=== PATIENT | female | born 1970 | race Caucasian/White ===

== ENCOUNTER 2022-10-19 13:42 | Inpatient (IN) | payer BC, SELFPAY ==
[2022-10-19] VITALS (8 sets, daily range): BP systolic 113–147; BP diastolic 48–86; PULSE 86–99; RESP 14–17; TEMP 36.4–37.6; O2SAT 92–99; BMI 25.0
--- NOTE | ~2022-10-19 | CT_ITS ---
EXAMINATION: CT CHEST WITHOUT CONTRAST CLINICAL INFORMATION: Epigastric pain COMPARISON: None TECHNIQUE: Multidetector volumetric CT imaging of the chest was done. Axial MIP volume rendering provided. Sagittal and coronal reformatted images were obtained. This CT examination was performed using dose optimization techniques as appropriate, variously including the following: *Automated exposure control *Adjustment of mA and/or kV according to patient size (this includes techniques or standardized protocols for targeted exams where dose is matched to indication/reason for exam; i.e. extremities or head) *Use of iterative reconstruction technique DLP: 275 mGy-cm FINDINGS: LUNGS: 3 mm peripheral or subpleural right upper lobe nodule axial image 99 series 9. 3 mm peripheral or subpleural right middle lobe nodule axial image 253 series 9. 7 mm calcified left lower lobe nodule axial image 262 series 9. MEDIASTINUM: Replaced right subclavian artery. The mediastinum is otherwise normal. The esophagus is normal. CORONARY ARTERY CALCIFICATION: None visualized on this study. PLEURA: There is no pleural effusion. No pleural mass or thickening. AXILLA: No lymphadenopathy. UPPER ABDOMEN: Unremarkable. OSSEOUS STRUCTURES: Spinal stimulator with tip at the T8-T9 level. CT/CT chest wo IV con IMPRESSION: No acute findings. Calcified and noncalcified pulmonary nodules. According to the UPDATED 2017 Fleischner Society recommendations, the advised follow-up imaging for less than 6 mm solid noncalcified pulmonary nodule: Low risk, no chest CT follow-up and high risk, optional chest CT follow-up in one year. Fleischner guidelines were followed.
--- NOTE | ~2022-10-19 | CT_ITS ---
EXAMINATION: CT ABDOMEN AND PELVIS WITHOUT CONTRAST CLINICAL INFORMATION: Abdominal pain COMPARISON: None TECHNIQUE: Multidetector volumetric imaging was performed from the superior aspect of the liver through the pubic symphysis. Sagittal and coronal reformatted images were obtained on the technologist's workstation. This CT examination was performed using dose optimization techniques as appropriate, variously including the following: *Automated exposure control *Adjustment of mA and/or kV according to patient size (this includes techniques or standardized protocols for targeted exams where dose is matched to indication/reason for exam; i.e. extremities or head) *Use of iterative reconstruction technique DLP: 660 mGy-cm FINDINGS: LUNG BASES: Small calcified left lower lobe nodule. Lung bases are otherwise clear. LIVER, GALLBLADDER, AND BILIARY TREE: The liver is normal in size and attenuation. The liver is slightly enlarged. No focal hepatic lesion or biliary ductal dilatation is present. The gallbladder is been removed. PANCREAS: Unremarkable. SPLEEN: Unremarkable. ADRENAL GLANDS: Unremarkable. KIDNEYS AND URETERS: Multiple small right renal stones. 1 small stone in the upper pole of the left kidney. 1 cm low-attenuation lesion in the upper pole of the right kidney probably representing a cyst. No imaging follow-up. BLADDER: Unremarkable. GASTROINTESTINAL TRACT: The small and large bowel are unremarkable. The appendix is is not seen and has probably been removed. The stomach is slightly distended and fluid-filled. ABDOMINAL WALL: No significant hernia is appreciated. LYMPH NODES: Normal. VASCULAR: Unremarkable. PELVIC VISCERA: Enlarged uterus, slightly lobulated in contour. This may represent fibroids. OSSEOUS STRUCTURES: Postsurgical changes to the lower lumbar spine with posterior fusion hardware in prosthetic disc interspaces at L4-L5 and L5-S1. Degenerative changes at L3-L4. Spinal stimulator the lower thoracic spinal canal.. CT/CT abdomen pelvis wo IV con IMPRESSION: Bilateral small renal stones, right greater than left. Enlarged probable fibroid uterus. This could be better evaluated with pelvic ultrasound if clinically indicated. Fleischner guidelines were followed.
--- NOTE | 2022-10-19 13:57 | ED_ITS ---
HPI - Weakness General Chief complaint: Abdominal Pain <GEO Gudino - Last Filed: 10/19/22 18:21> Stated complaint: N/V/D <GEO Gudino - Last Filed: 10/19/22 18:21> Time Seen by Provider: 10/19/22 20:50 <GEO Gduino - Last Filed: 10/19/22 18:21> Source: patient <Mayra Sethi NP - Last Filed: 10/20/22 01:33> Mode of arrival: ambulatory <Mayra Sethi NP - Last Filed: 10/20/22 01:33> Limitations: language barrier <Mayra Sethi NP - Last Filed: 10/20/22 01:33> History of Present Illness HPI Narrative: 52-year-old female presents with headache, abdominal pain, shortness of breath, nausea vomiting and diarrhea since yesterday. She does have a history of left amputation, type 2 diabetes, hypertension, and neuropathy. She does not report any fevers or chills, but is unable to drink and eat. <Mayra Sethi NP - Last Filed: 10/20/22 01:33> MD Complaint: generalized weakness <Mayra Sethi NP - Last Filed: 10/20/22 01:33> Onset (ago): day(s) (2) <Mayra Sethi NP - Last Filed: 10/20/22 01:33> Duration: constant <Mayra Sethi NP - Last Filed: 10/20/22 01:33> Location: generalized <Mayra Sethi NP - Last Filed: 10/20/22 01:33> Migration: none <Mayra Sethi NP - Last Filed: 10/20/22 01:33> Severity: moderate <Mayra Sethi NP - Last Filed: 10/20/22 01:33> Severity scale (1-10): 7 <Mayra Sethi NP - Last Filed: 10/20/22 01:33> Quality: aching <Mayra Sethi NP - Last Filed: 10/20/22 01:33> Relieving factors: none <Mayra Sethi NP - Last Filed: 10/20/22 01:33> Exacerbating factors: movement <Mayra Sethi NP - Last Filed: 10/20/22 01:33> Associated symptoms: headaches, nausea/vomiting, myalgias and shortness of breath <Mayra Sethi NP - Last Filed: 10/20/22 01:33> Related Data Allergies/Adverse reactions: Allergies Allergy/AdvReac Type Severity Reaction Status Date / Time Iodinated Contrast Media Allergy Unknown HIVES Verified 10/19/22 15:06 [IV DYE, IODINE CONTAINING] <GEO Gudino - Last Filed: 10/19/22 18:21> Review of Systems Review of Systems: Constitutional: No Fever, No Chills ENT/Mouth: No Ear Pain, No Hoarseness, No sore throat Cardiovascular: No Chest Pain, positive SOB Respiratory: No Cough, No Dyspnea Gastrointestinal: Positive Nausea, positive Vomiting, positive Diarrhea, positive abdominal Pain Genitourinary: No Dysuria, No Hematuria Musculoskeletal: positive Myalgias, No Joint Swelling Skin: No Skin lacerations, No rash Neuro: No Weakness, No Numbness, No Paresthesias, No Loss of Consciousness, No Dizziness, No Headache <Mayra Sethi NP - Last Filed: 10/20/22 01:33> Yes all other systems are reviewed and are negative <Mayra Sethi NP - Last Filed: 10/20/22 01:33> PMFSH Past Medical History Attestation statement: The following information was validated with the patient. <Mayra Sethi NP - Last Filed: 10/20/22 01:33> Source: old records reviewed <Mayra Sethi NP - Last Filed: 10/20/22 01:33> Medical History: Medical History (Updated 10/20/22 @ 00:37 by Diane Peters MD) Hypertension Non-insulin dependent type 2 diabetes mellitus Peripheral neuropathy <GEO Gudino - Last Filed: 10/19/22 18:21> Surgical History: Surgical History (Updated 10/20/22 @ 00:37 by Diane Peters MD) Amputated left leg <GEO Gudino - Last Filed: 10/19/22 18:21> Social History Social History: Social History Advance Directives: No Advance Directives Information Provided: No <GEO Gudino - Last Filed: 10/19/22 18:21> Physical Exam Vital Signs: Vital Signs: Last Vital Signs Temp 99.8 F 10/20/22 00:53 Pulse 84 10/20/22 00:53 Resp 16 10/20/22 00:53 BP 118/64 10/20/22 00:53 Pulse Ox 95 10/20/22 00:53 O2 Del Method 10/20/22 00:53 BMI result Body Mass Index 25.0 <GEO Gudino - Last Filed: 10/19/22 18:21> Vital Signs: Last Vital Signs Temp 99.8 F 10/20/22 00:53 Pulse 84 10/20/22 00:53 Resp 16 10/20/22 00:53 BP 118/64 10/20/22 00:53 Pulse Ox 95 10/20/22 00:53 O2 Del Method 10/20/22 00:53 BMI result Body Mass Index 25.0 <Mayra Sethi NP - Last Filed: 10/20/22 01:33> Appearance: Alert. Oriented X3. Moderate distress. Eyes: Pupils equal, round and reactive to light. Sclera nonicteric. ENT: Pharynx normal. Dry mucous membranes. Neck: Normal inspection. Neck supple. CVS: Normal heart rate and rhythm. Pulses normal. Respiratory: No respiratory distress. Breath sounds normal. Abdomen: Soft and diffusely tender. Obese. No rigidity or rebound. Skin: Skin warm and dry. Normal skin color. Normal skin turgor. Extremities: Moves all extremities against resistance. Left lower extremity amp. Neuro: No motor deficit. No sensory deficit. Cranial nerves 2-12 intact. <Mayra Sethi NP - Last Filed: 10/20/22 01:33> Course Course Course Narrative: RME 52 yo f hx of htn, diabetes, Raynaud's disease presents nausea, vomiting, diarrhea, epigastric pain, frontal tight like headache, substernal nonradiating chest pain x2 days progressively worsening. Unable to tolerate p.o.. Epigastric tenderness on palpation. Labs ordered. <GEO Gudino - Last Filed: 10/19/22 18:21> RME 52 yo f hx of htn, diabetes, Raynaud's disease presents nausea, vomiting, diarrhea, epigastric pain, frontal tight like headache, substernal nonradiating chest pain x2 days progressively worsening. Unable to tolerate p.o.. Epigastric tenderness on palpation. Labs ordered. 52-year-old female presents for headache, abdominal pain, nausea, vomiting, diarrhea, and shortness of breath. Labs drawn while patient was in the emergency department waiting room. White count 12. Two, H&H 16.3/49.7 indicative of dehydration. Considering patient's labs, elevated bilirubin, will add lactic acid. 20:50 patient has been in the waiting room for fluids started at 21:15 verbal order by this CAD SPECIALIST to RN. COVID influenza RSV are negative. 22:05 lactic acid 3.8, will begin sepsis protocol at this time. Source of infection not known yet. Fluids were initiated at 21:15 order for ceftriaxone. 22:30 patient positive for UTI, will have patient admitted for urosepsis. <Mayra Sethi CAD SPECIALIST - Last Filed: 10/20/22 01:33> Consultations Consultation #1: Fran <Mayra Sethi, CAD SPECIALIST - Last Filed: 10/20/22 01:33> Medications Administered Generic Name Dose Route Start Last Admin Trade Name Freq PRN Reason Stop Dose Admin Acetaminophen 650 mg 10/19/22 23:45 10/20/22 01:18 Acetaminophen 325 Mg Tablet PO 650 mg Q6H PRN Administration Pain, Mild (Pain Scale 1-3) Lactated Ringer's 1,000 mls @ 150 mls/hr 10/19/22 23:30 10/19/22 23:38 Lr IVCONT 150 mls/hr .Q6H40M RACIEL Administration Insulin Glargine 25 unit 10/20/22 00:50 10/20/22 01:20 Insulin Glargine,Hum.Rec.Anlog 100 Unit/Ml 10 Ml Vial SUBCUT Not Given BEDTIME RACIEL Melatonin 6 mg 10/19/22 23:45 10/20/22 01:18 Melatonin 3 Mg Tablet PO 6 mg BEDTIME PRN Administration Insomnia Sodium Chloride 3 ml 10/20/22 00:00 10/20/22 01:20 0.9 % Sodium Chloride Flush 3 Ml Syringe IVFLUSH 3 ml QSHIFT RACIEL Administration Tamsulosin HCl 0.4 mg 10/20/22 00:35 10/20/22 01:18 Tamsulosin Hcl 0.4 Mg Capsule PO 0.4 mg BEDTIME RACIEL Administration Discontinued Medications Generic Name Dose Route Start Last Admin Trade Name Donovanq PRN Reason Stop Dose Admin Sodium Chloride 1,000 mls @ 999 mls/hr 10/19/22 22:15 10/19/22 23:18 Ns IVCONT 10/19/22 23:15 Infused .Q1H1M RACIEL Infusion Ceftriaxone Sodium 1 gm/ 50 mls @ 100 mls/hr 10/19/22 22:05 10/19/22 22:51 Sodium Chloride IV 10/19/22 22:34 Infused ONCE ONE Infusion Sodium Chloride 1,000 mls @ 999 mls/hr 10/19/22 22:15 10/19/22 23:18 Ns IVCONT 10/19/22 23:15 Infused .Q1H1M RACIEL Infusion Morphine Sulfate 4 mg 10/19/22 21:02 10/19/22 21:06 Morphine Sulfate 4 Mg/Ml Cartridge IVPUSH 10/19/22 21:03 4 mg ONCE ONE Administration Protocol Ondansetron HCl 4 mg 10/19/22 15:07 10/19/22 15:11 Ondansetron Odt 4 Mg Tab.Rapdis SUBLINGUAL 10/19/22 15:08 4 mg ONCE ONE Administration Ondansetron HCl 4 mg 10/19/22 20:45 10/19/22 20:57 Ondansetron Hcl 4 Mg/2 Ml Vial IVPUSH 10/19/22 20:46 4 mg ONCE ONE Administration Ondansetron HCl 4 mg 10/19/22 21:02 10/19/22 21:06 Ondansetron Hcl 4 Mg/2 Ml Vial IVPUSH 10/19/22 21:03 Not Given ONCE ONE <GEO Gudino - Last Filed: 10/19/22 18:21> Medications Administered Generic Name Dose Route Start Last Admin Trade Name Aneesh PRN Reason Stop Dose Admin Acetaminophen 650 mg 10/19/22 23:45 10/20/22 01:18 Acetaminophen 325 Mg Tablet PO 650 mg Q6H PRN Administration Pain, Mild (Pain Scale 1-3) Lactated Ringer's 1,000 mls @ 150 mls/hr 10/19/22 23:30 10/19/22 23:38 Lr IVCONT 150 mls/hr .Q6H40M RACIEL Administration Insulin Glargine 25 unit 10/20/22 00:50 10/20/22 01:20 Insulin Glargine,Hum.Rec.Anlog 100 Unit/Ml 10 Ml Vial SUBCUT Not Given BEDTIME RACIEL Melatonin 6 mg 10/19/22 23:45 10/20/22 01:18 Melatonin 3 Mg Tablet PO 6 mg BEDTIME PRN Administration Insomnia Sodium Chloride 3 ml 10/20/22 00:00 10/20/22 01:20 0.9 % Sodium Chloride Flush 3 Ml Syringe IVFLUSH 3 ml QSHIFT RACIEL Administration Tamsulosin HCl 0.4 mg 10/20/22 00:35 10/20/22 01:18 Tamsulosin Hcl 0.4 Mg Capsule PO 0.4 mg BEDTIME RACIEL Administration Discontinued Medications Generic Name Dose Route Start Last Admin Trade Name Freq PRN Reason Stop Dose Admin Sodium Chloride 1,000 mls @ 999 mls/hr 10/19/22 22:15 10/19/22 23:18 Ns IVCONT 10/19/22 23:15 Infused .Q1H1M RACIEL Infusion Ceftriaxone Sodium 1 gm/ 50 mls @ 100 mls/hr 10/19/22 22:05 10/19/22 22:51 Sodium Chloride IV 10/19/22 22:34 Infused ONCE ONE Infusion Sodium Chloride 1,000 mls @ 999 mls/hr 10/19/22 22:15 10/19/22 23:18 Ns IVCONT 10/19/22 23:15 Infused .Q1H1M RACIEL Infusion Morphine Sulfate 4 mg 10/19/22 21:02 10/19/22 21:06 Morphine Sulfate 4 Mg/Ml Cartridge IVPUSH 10/19/22 21:03 4 mg ONCE ONE Administration Protocol Ondansetron HCl 4 mg 10/19/22 15:07 10/19/22 15:11 Ondansetron Odt 4 Mg Tab.Rapdis SUBLINGUAL 10/19/22 15:08 4 mg ONCE ONE Administration Ondansetron HCl 4 mg 10/19/22 20:45 10/19/22 20:57 Ondansetron Hcl 4 Mg/2 Ml Vial IVPUSH 10/19/22 20:46 4 mg ONCE ONE Administration Ondansetron HCl 4 mg 10/19/22 21:02 10/19/22 21:06 Ondansetron Hcl 4 Mg/2 Ml Vial IVPUSH 10/19/22 21:03 Not Given ONCE ONE <Mayra Sethi NP - Last Filed: 10/20/22 01:33> Medical Decision Making Medical Decision Making Differential Diagnoses: Differential diagnosis (Cholecystitis, pyelonephritis, appendicitis, diverticulitis, pneumonia, UTI, sepsis) <Mayra Sethi NP - Last Filed: 10/20/22 01:33> Consideration of admission/observation: Consideration of Admission/Observation (Patient will be admitted) <Mayra Sethi NP - Last Filed: 10/20/22 01:33> Discussion of management with other physician/healthcare provider/other source (e.g., hospitalist, senior market intelligence consultant, behavioral health): Discussion w/other physician/healthcare provider Management of the patient was discussed with: Hospitalist My interpretation is <Mayra Sethi NP - Last Filed: 10/20/22 01:33> Lab Attestation: I reviewed the patient's lab results. <Mayra Sethi NP - Last Filed: 10/20/22 01:33> Discussion of test interpretation with radiology: Discussion of test interpretation with radiology FINDINGS: LUNG BASES: Small calcified left lower lobe nodule. Lung bases are otherwise clear.? LIVER, GALLBLADDER, AND BILIARY TREE: The liver is normal in size and attenuation. The liver is slightly enlarged. No focal hepatic lesion or biliary ductal dilatation is present. The gallbladder is been removed. PANCREAS: Unremarkable.? SPLEEN: Unremarkable.? ADRENAL GLANDS: Unremarkable.? KIDNEYS AND URETERS: Multiple small right renal stones. 1 small stone in the upper pole of the left kidney. 1 cm low-attenuation lesion in the upper pole of the right kidney probably representing a cyst. No imaging follow-up.? BLADDER: Unremarkable.? GASTROINTESTINAL TRACT: The small and large bowel are unremarkable. The appendix is is not seen and has probably been removed. The stomach is slightly distended and fluid-filled. ABDOMINAL WALL: No significant hernia is appreciated.? LYMPH NODES: Normal. VASCULAR: Unremarkable. PELVIC VISCERA: Enlarged uterus, slightly lobulated in contour. This may represent fibroids. OSSEOUS STRUCTURES: Postsurgical changes to the lower lumbar spine with posterior fusion hardware in prosthetic disc interspaces at L4-L5 and L5-S1. Degenerative changes at L3-L4. Spinal stimulator the lower thoracic spinal canal.. CT/CT abdomen pelvis wo IV con IMPRESSION: Bilateral small renal stones, right greater than left. Enlarged probable fibroid uterus. This could be better evaluated with pelvic ultrasound if clinically indicated.? ? Fleischner guidelines were followed. FINDINGS: LUNGS: 3 mm peripheral or subpleural right upper lobe nodule axial image 99 series 9. 3 mm peripheral or subpleural right middle lobe nodule axial image 253 series 9. 7 mm calcified left lower lobe nodule axial image 262 series 9.? MEDIASTINUM: Replaced right subclavian artery. The mediastinum is otherwise normal. The esophagus is normal.? CORONARY ARTERY CALCIFICATION: None visualized on this study. PLEURA: There is no pleural effusion. No pleural mass or thickening.? AXILLA: No lymphadenopathy.? UPPER ABDOMEN: Unremarkable.? OSSEOUS STRUCTURES: Spinal stimulator with tip at the T8-T9 level. CT/CT chest wo IV con IMPRESSION: No acute findings. Calcified and noncalcified pulmonary nodules. According to the UPDATED 2017 Fleischner Society recommendations, the advised follow-up imaging for less than 6 mm solid noncalcified pulmonary nodule: Low risk, no chest CT follow-up and high risk, optional chest CT follow-up in one year. ? <Mayra Sethi NP - Last Filed: 10/20/22 01:33> Independent historian (e.g., spouse, EMS, friend): Independent historian (e.g., spouse, EMS, friend) Additional Comments: Family <Mayra Sethi NP - Last Filed: 10/20/22 01:33> Chronic conditions affecting care (e.g., diabetes, HTN): Chronic conditions affecting care (e.g., diabetes, HTN) Patient?s care impacted by: Diabetes and Hypertension <YOHAN Bahena Last Filed: 10/20/22 01:33> Critical Care Time Critical Care Time Critical Care Time: Yes <YOHAN Bahena Last Filed: 10/20/22 01:33> Total Critical Care Time: 45 <Mayra Sethi NP - Last Filed: 10/20/22 01:33> Attestation: I have personally provided critical care time exclusive of time spent on separately billable procedures. Time includes review of laboratory data, radiology results, discussion with consultants, and monitoring for potential decompensation. Interventions were performed as documented. <Mayra Sethi NP - Last Filed: 10/20/22 01:33> Discharge Plan Discharge Clinical Impression: Sepsis, Dehydration, UTI (urinary tract infection) <GEO Gudino - Last Filed: 10/19/22 18:21> Patient Disposition: Admitted As Inpatient <GEO Gudino - Last Filed: 10/19/22 18:21>
[2022-10-19] MEDS: Ondansetron ODT 4 MG TAB.RAPDIS SUBLINGUAL (15:11)
[2022-10-19 15:27] LABS: MANUAL DIFF FLAG NO
[2022-10-19 15:28] LABS: Basophils Percent Auto 0.2 % (0-2); Eosinophils Percent Auto 0.2 % (0-4); Hematocrit 49.7 % (37.0-47.0); Hemoglobin 16.3 g/dl (12.0-16.0); Imm Gran Abs Auto 0.03 X10*3/uL (0.00-0.03); Imm Gran Pct Auto 0.2 % (0.0-0.4); Lymphocytes Absolute Auto 0.8 X10*3/uL (1.2-4.9); Lymphocytes Percent Auto 6.8 % (20-40); Mean Corpuscular HGB Conc 32.8 g/dl (31.0-35.0); Mean Corpuscular Hemoglobin 27.2 pg (27.0-33.0); Mean Corpuscular Volume 82.8 fL (80.0-98.0); Mean Platelet Volume 9.8 fL (9.4-12.3); Monocytes Absolute Auto 0.5 X10*3/uL (0.1-1.2); Monocytes Percent Auto 4.1 % (2-11); Neutrophils Absolute Auto 10.8 x10*3/uL (2.0-8.3); Neutrophils Percent Auto 88.5 % (45-73); Platelet Count 425 X10*3/uL (160-400); Red Cell Distribution Width 13.3 % (11.0-16.0); White Blood Count 12.2 X10*3/uL (4.8-10.8)
[2022-10-19 15:49] LABS: Alanine Aminotransferase 23 U/L (0-31); Albumin Level 4.6 g/dL (3.5-5.0); Alkaline Phosphatase 129 U/L (39-117); Anion Gap 13 (12-20); Aspartate Amino Transferase 16 U/L (5-31); Bilirubin Total 1.3 mg/dL (0.0-1.0); Calcium 9.9 mg/dL (8.4-10.2); Carbon Dioxide 33 mmol/L (22-29); Chloride 96 mmol/L (96-108); Creatinine Clr Calc Pharmacy 73.7; Estimated Glomerular Filt Rate > 60; Glucose Random 205 mg/dL (60-115); Lipase 68 U/L (8-78); Potassium 4.1 mmol/L (3.3-5.1); Sodium 138 mmol/L (135-145); Total Protein 7.3 g/dL (6.5-8.0)
[2022-10-19 15:50] LABS: COVID-19 Test Negative (Negative); IDNOW Serial# 16C4AD1C
[2022-10-19 15:51] LABS: IDNOW Serial# BCCEAD1C; Influenza A Negative (Negative); Influenza B2 Negative (Negative)
[2022-10-19 16:21] LABS: Blood Urea Nitrogen 14 mg/dL (9-16)
[2022-10-19 17:58] LABS: Glucose, Whole Blood 226 mg/dL (60-115)
--- NOTE | 2022-10-19 20:42 | PC.NURSE ---
this pct assumed care of pt at 2044 ,vs taken ,call rao within reach ,pt daughter at bedside ,pt said she is not able to give urine sample at this time ,rn pan is aware .
[2022-10-19] MEDS: ondansetron HCL 4 MG/2 ML VIAL IVPUSH (20:57)
[2022-10-19] MEDS: Morphine Sulfate 4 MG/ML CARTRIDGE IVPUSH (21:06)
[2022-10-19 22:06] LABS: Lactic Acid 3.8 mmol/L (0.5-2.0)
[2022-10-19] MEDS: 0.9 % Sodium Chloride 1,000 ML 999 ML IVCONT ×2 (22:16→22:17)
[2022-10-19] MEDS: cefTRIAXone sodium 1 GM in 0.9 % Sodium Chloride 50 ML IV (22:17)
[2022-10-19 22:29] LABS: Appearance Urine Clear; Color Urine Dark Yellow; Glucose Urine UA Negative (Negative); Leukocyte Esterase Urine Trace (Negative); Nitrite Urine Positive (Negative); Specific Gravity - Urine 1.025 (1.005-1.025); UMIC TRIGGER UACC YES; Urine Blood Trace (Negative); Urine Ketones Negative (Negative); Urine Protein 30 (1+) mg/dL (Neg-Trace)
[2022-10-19 22:34] LABS: Bacteria Urine 4+ (None Seen); Hyaline Casts Urine 0-2 /LPF (0-2); Squamous Epithelial Cell Urine 0-2 /HPF (0-2); UACC Culture Trigger YES
[2022-10-19] MEDS: Lactated Ringers 1,000 ML 150 ML IVCONT (23:38)
--- NOTE | 2022-10-19 23:39 | PC.NURSE ---
blood pressure beginning to trend down, GEO Nunez aware, new orders entered and lactated ringers has been started per MAR
[2022-10-19 23:47] LABS: Reflex Lactate? Lactic Acid Added
--- NOTE | 2022-10-20 00:31 | P.HPHOSP_ITS ---
History of Present Illness Date of Service: 10/20/22 Chief Complaint: Abdominal Pain This is a 52-year-old female with pertinent history of essential hypertension, peripheral neuropathy, peripheral arterial disease status post left leg amputation, [id number] diabetes mellitus who presents to the emergen cy department for evaluation of abdominal discomfort. Patient states it started yesterday and is associated with increased urinary frequency. Also has been having associated fever, chills, nausea and vomiting. No history of UTI. No history of kidney stones. Patient states she has had decreased p.o. intake due to the same. She denies chest discomfort, palpitations, shortness, changes in bowel habits In the emergency department, patient was found to be septic and urine was consistent with UTI. Imaging revealed right-sided kidney stones Review of Systems Constitutional: Constitutional: Reports chills, Reports fever(s) and Reports malaise Cardiovascular: Cardiovascular: Reports no additional cardiovascular complaints Respiratory: Respiratory: Reports no additional respiratory complaints Gastrointestinal: Gastrointestinal: Reports abdominal pain, Reports nausea and Reports vomiting Genitourinary: Genitourinary: Reports urinary urgency [facility] Medical History (Updated 10/20/22 @ 00:37 by Diane Peters MD) Hypertension Non-insulin dependent type 2 diabetes mellitus Peripheral neuropathy Pertinent family history: No family history of coronary artery disease Surgical History (Updated 10/20/22 @ 00:37 by Diane Peters MD) Amputated left leg Social History Advance Directives: No Advance Directives Information Provided: No Meds Allergies Allergy/AdvReac Type Severity Reaction Status Date / Time Iodinated Contrast Media Allergy Unknown HIVES Verified 10/19/22 15:06 [IV DYE, IODINE CONTAINING] Active Medications: Current Medications Acetaminophen (Acetaminophen 325 Mg Tablet) 650 mg PO Q6H PRN PRN Reason: Pain, Mild (Pain Scale 1-3) Lactated Ringer's (Lr) 1,000 mls @ 150 mls/hr IVCONT .Q6H40M [facility] Last Admin: 10/19/22 23:38 Dose: 150 mls/hr Ceftriaxone Sodium 1 gm/ (Sodium Chloride) 50 mls @ 100 mls/hr IV Q24H [facility] Melatonin (Melatonin 3 Mg Tablet) 6 mg PO BEDTIME PRN PRN Reason: Insomnia Morphine Sulfate (Morphine Sulfate 4 Mg/Ml Cartridge) 4 mg IVPUSH Q4H PRN; Protocol PRN Reason: Pain, Severe (Pain Scale 7-10) Ondansetron HCl (Ondansetron Hcl 4 Mg/2 Ml Vial) 4 mg IVPUSH Q8H PRN PRN Reason: Nausea and Vomiting Pharmacy Consult (Consult Rx Perform Med Rec) 1 each MISCELLANE ONCE PRN PRN Reason: Consult order Sodium Chloride (0.9 % Sodium Chloride Flush 3 Ml Syringe) 3 ml IVFLUSH QSHIFT RACIEL Physical Exam Vital Signs and Narrative: Vital Signs: Last Vital Signs Temp 99.4 F 10/19/22 23:43 Pulse 92 10/19/22 23:43 Resp 17 10/19/22 23:43 BP 119/62 10/19/22 23:43 Pulse Ox 98 10/19/22 23:43 O2 Del Method 10/19/22 23:43 BMI result Body Mass Index 25.0 Middle-aged female lying in bed in no distress Neck supple, no JVD Regular rate and rhythm, S1-S2 heard Regular breath sounds bilaterally, no wheezing or crackles appreciated Abdomen generalized tenderness with deep palpation, no guarding, no rigidity ; right-sided CVA tenderness present Patient is awake, alert and oriented to self, place, time and person ; no focal motor deficit Extremity: Left leg amputee Psych: Normal mood No pedal edema Results Labs CBC and Chem 7: 10/19/22 15:20 10/19/22 15:20 Labs: Laboratory Results - last 24 hr 10/19/22 10/19/22 10/19/22 15:20 15:20 15:20 MCV 82.8 MCH 27.2 MCHC 32.8 RDW 13.3 Plt Count 425 H MPV 9.8 Immature Gran % (Auto) 0.2 Neut % (Auto) 88.5 H Lymph % (Auto) 6.8 L [place] % (Auto) 4.1 Eos % (Auto) 0.2 Baso % (Auto) 0.2 Lymph # (Auto) 0.8 L [place] # (Auto) 0.5 Eos # (Auto) 0.0 Baso # (Auto) 0.0 Abs Immat Gran (auto) 0.03 Absolute Neuts (auto) 10.8 H Absolute Nucleated RBC 0.000 Nucleated RBC % (auto) 0.0 Anion Gap 13 Estim Creat Clear Calc 73.7 Estimated GFR > 60 POC Glucose Random Glucose 205 H Lactic Acid Calcium 9.9 Total Bilirubin 1.3 H AST 16 ALT 23 Alkaline Phosphatase 129 H Total Protein 7.3 Albumin 4.6 Lipase 68 Urine Color Urine Appearance Urine pH Ur Specific [place] Urine Protein Urine Glucose (UA) Urine Ketones Urine Blood Urine Nitrite Ur Leukocyte Esterase Urine RBC Urine WBC Ur Squamous Epith Cells Urine Bacteria Hyaline Casts COVID-19 ([facility]) COVID-19 Clin Com Influenza Type A (SE) Negative Influenza Type B (SE) Negative Influenza A & B Note See Note 10/19/22 10/19/22 10/19/22 15:20 17:53 21:44 MCV MCH MCHC RDW Plt Count MPV Immature Gran % (Auto) Neut % (Auto) Lymph % (Auto) [place] % (Auto) Eos % (Auto) Baso % (Auto) Lymph # (Auto) [place] # (Auto) Eos # (Auto) Baso # (Auto) Abs Immat Gran (auto) Absolute Neuts (auto) Absolute Nucleated RBC Nucleated RBC % (auto) Anion Gap Estim Creat Clear Calc Estimated GFR POC Glucose 226 H Random Glucose Lactic Acid 3.8 H* Calcium Total Bilirubin AST ALT Alkaline Phosphatase Total Protein Albumin Lipase Urine Color Urine Appearance Urine pH Ur Specific [place] Urine Protein Urine Glucose (UA) Urine Ketones Urine Blood Urine Nitrite Ur Leukocyte Esterase Urine RBC Urine WBC Ur Squamous Epith Cells Urine Bacteria Hyaline Casts COVID-19 ([facility]) Negative COVID-19 Clin Com See Note Influenza Type A (SE) Influenza Type B (SE) Influenza A & B Note 10/19/22 22:22 MCV MCH MCHC RDW Plt Count MPV Immature Gran % (Auto) Neut % (Auto) Lymph % (Auto) [place] % (Auto) Eos % (Auto) Baso % (Auto) Lymph # (Auto) [place] # (Auto) Eos # (Auto) Baso # (Auto) Abs Immat Gran (auto) Absolute Neuts (auto) Absolute Nucleated RBC Nucleated RBC % (auto) Anion Gap Estim Creat Clear Calc Estimated GFR POC Glucose Random Glucose Lactic Acid Calcium Total Bilirubin AST ALT Alkaline Phosphatase Total Protein Albumin Lipase Urine Color Dark Yellow Urine Appearance Clear Urine pH 6.0 Ur Specific [place] 1.025 Urine Protein 30 (1+) H Urine Glucose (UA) Negative Urine Ketones Negative Urine Blood Trace H Urine Nitrite Positive H Ur Leukocyte Esterase Trace H Urine RBC 3-5 H Urine WBC 11-20 H Ur Squamous Epith Cells 0-2 Urine Bacteria 4+ Hyaline Casts 0-2 COVID-19 ([facility]) COVID-19 Clin Com Influenza Type A (SE) Influenza Type B (SE) Influenza A & B Note Imaging Radiologist's Impressions: Impressions Abdomen/Pelvis CT 10/19/22 22:11 IMPRESSION: Bilateral small renal stones, right greater than left. Enlarged probable fibroid uterus. This could be better evaluated with pelvic ultrasound if clinically indicated. Fleischner guidelines were followed. Chest CT 10/19/22 22:11 IMPRESSION: No acute findings. Calcified and noncalcified pulmonary nodules. According to the UPDATED 2017 Fleischner Society recommendations, the advised follow-up imaging for less than 6 mm solid noncalcified pulmonary nodule: Low risk, no chest CT follow-up and high risk, optional chest CT follow-up in one year. Fleischner guidelines were followed. Assessment and Plan (1) UTI (urinary tract infection): Status: Acute (2) Sepsis: Status: Acute (3) Hypertension: Status: Acute (4) Non-insulin dependent type 2 diabetes mellitus: Status: Acute (5) Peripheral neuropathy: Status: Acute Plan This is a 52-year-old female with pertinent history of essential hypertension, peripheral neuropathy, peripheral arterial disease status post left leg amputation, [id number] diabetes mellitus who presents to the emergency department for evaluation of abdominal discomfort. #. Sepsis due to UTI and clinical right-sided pyelonephritis in a patient with kidney stones: Will admit patient with empiric IV Rocephin. Follow urine cultures. Resuscitated IV crystalloids. Pain management with IV opioids p.r.n.. Consulting Urology. Initiated Flomax #. Relative polycythemia due to above #. Acute lactic acidosis, type a: Trended down with fluid resuscitation #. Essential hypertension: Hold oral home p.o. antihypertensives in the setting of sepsis #. Peripheral neuropathy: Continue gabapentin #. Tza-nxuzhon-gkcahnlsp diabetes mellitus with hyperglycemia: Holding metformin. Initiate Accu-Cheks with sliding scale insulin DVT prophylaxis: Deferred Lovenox until urology evaluation Diabetic diet Full code Admit as inpatient and will require two night minimum hospital stay for IV antibiotics Time Spent With Patient Time: Total time managing care of this patient today ____ minutes. Quality Stroke Does the patient have a stroke diagnosis?: No VTE Prior VTE?: No VTE Risk Level:: Medical - low VTE Device Contraindication: Treatment Not Indicated VTE Drug Contraindication: Treatment Not Indicated
[2022-10-20 00:38] LABS: ~Lactic Acid-LAB USE ONLY 2.4 mmol/L (0.5-2.0)
[2022-10-20 00:53] VITALS: BP 118/64; PULSE 84; RESP 16; TEMP 37.7; O2SAT 95
[2022-10-20 01:01] LABS: Glucose, Whole Blood 133 mg/dL (60-115)
[2022-10-20] MEDS: Melatonin 3 MG TABLET 6 MG PO ×2 (01:18→21:47)
[2022-10-20] MEDS: Tamsulosin HCL 0.4 MG CAPSULE PO ×2 (01:18→21:39)
[2022-10-20] MEDS: Acetaminophen 325 MG TABLET 650 MG PO (01:18)
[2022-10-20] MEDS: 0.9 % Sodium Chloride Flush 3 ML SYRINGE IVFLUSH ×2 (01:20→17:42)
--- NOTE | 2022-10-20 02:10 | PC.NURSE ---
Patient arrives to overflow and care assumed. She is alert, oriented x4. She endorses urinary frequency and bilateral flank pain- being treated/admitted for UTI and kidney stones. fluids infusing through patent IV. patient medicated for pain and provided with prn melatonin per request. she is able to jump with 1-assist from ED stretcher to hospital bed (hx left leg amputation).
[2022-10-20 02:20] LABS: Reflex Lactate? 2 Y
[2022-10-20 02:46] LABS: ~Lactic Acid-LAB USE ONLY 1.4 mmol/L (0.5-2.0)
[2022-10-20 03:26] VITALS: RESP 17
[2022-10-20] MEDS: Lactated Ringers 1,000 ML 150 ML IVCONT ×3 (05:56→23:21)
[2022-10-20 06:08] LABS: Glucose, Whole Blood 150 mg/dL (60-115)
[2022-10-20 06:55] LABS: MANUAL DIFF FLAG NO
[2022-10-20 07:00] LABS: Basophils Percent Auto 0.3 % (0-2); Eosinophils Absolute Auto 0.1 X10*3/uL (0.0-0.4); Eosinophils Percent Auto 1.3 % (0-4); Hematocrit 36.5 % (37.0-47.0); Hemoglobin 11.5 g/dl (12.0-16.0); Imm Gran Abs Auto 0.03 X10*3/uL (0.00-0.03); Imm Gran Pct Auto 0.4 % (0.0-0.4); Lymphocytes Absolute Auto 2.4 X10*3/uL (1.2-4.9); Lymphocytes Percent Auto 31.7 % (20-40); Mean Corpuscular HGB Conc 31.5 g/dl (31.0-35.0); Mean Corpuscular Volume 85.7 fL (80.0-98.0); Mean Platelet Volume 10.4 fL (9.4-12.3); Monocytes Absolute Auto 0.8 X10*3/uL (0.1-1.2); Monocytes Percent Auto 10.7 % (2-11); Neutrophils Absolute Auto 4.2 x10*3/uL (2.0-8.3); Neutrophils Percent Auto 55.6 % (45-73); Platelet Count 284 X10*3/uL (160-400); Red Blood Count 4.26 X10*6/uL (4.20-5.50); Red Cell Distribution Width 13.3 % (11.0-16.0); White Blood Count 7.6 X10*3/uL (4.8-10.8)
[2022-10-20 07:49] VITALS: BP 111/62; PULSE 68; RESP 16; O2SAT 96
[2022-10-20 07:55] LABS: Anion Gap 13 (12-20); Blood Urea Nitrogen 8 mg/dL (9-16); Calcium 7.9 mg/dL (8.4-10.2); Carbon Dioxide 27 mmol/L (22-29); Chloride 103 mmol/L (96-108); Creatinine Clr Calc Pharmacy 91.4; Estimated Glomerular Filt Rate > 60; Glucose Random 130 mg/dL (60-115); Potassium 3.5 mmol/L (3.3-5.1); Sodium 139 mmol/L (135-145)
--- NOTE | 2022-10-20 10:00 | HO.PM.IMPN ---
Subjective Subjective Date of Service: 10/20/22 Review of Systems Follow-up sepsis secondary to UTI Still with flank pain Denies nausea, vomiting, diarrhea Physical Exam Vital Signs: Vital Signs: Last Vital Signs Temp 99.8 F 10/20/22 00:53 Pulse 68 10/20/22 07:49 Resp 16 10/20/22 07:49 BP 111/62 10/20/22 07:49 Pulse Ox 96 10/20/22 07:49 O2 Del Method 10/20/22 07:49 BMI result Body Mass Index 25.0 Appearing in no acute distress lung sounds are clear to auscultation heart regular rate rhythm, clear S1, S2 positive bowel sounds, abdomen is soft, nontender neuro patient is alert x3, no focal deficits Objective Data Active Medications Acetaminophen (Acetaminophen 325 Mg Tablet) 650 mg PO Q6H PRN PRN Reason: Pain, Mild (Pain Scale 1-3) Last Admin: 10/20/22 01:18 Dose: 650 mg Documented By: BROCK Dextrose (Dextrose 50 % 25 Gm/50 Ml Syringe) 25 gm IVPUSH Q15M PRN; Protocol PRN Reason: per Hypoglycemia Standing Ord. Glucose (Glucose Gel 15 Gm Gel..Gram.) 15 gm PO Q15M PRN; Protocol PRN Reason: per Hypoglycemia Standing Ord. Lactated Ringer's (Lr) 1,000 mls @ 150 mls/hr IVCONT .Q6H40M [facility] [place] Last Admin: 10/20/22 05:56 Dose: 150 mls/hr Documented By: BROCK Ceftriaxone Sodium 1 gm/ (Sodium Chloride) 50 mls @ 100 mls/hr IV Q24H [facility] Insulin Glargine (Insulin Glargine,Hum.Rec.Anlog 100 Unit/Ml 10 Ml Vial) 25 unit SUBCUT BEDTIME [facility] [place] Last Admin: 10/20/22 01:20 Dose: Not Given Documented By: BROCK Non-Admin Reason: BG 130 Insulin Human Lispro (Insulin Lispro 100 Unit/Ml 3 Ml Vial) 0 unit SUBCUT QIDACHS [facility] [place]; Protocol Last Admin: 10/20/22 08:14 Dose: Not Given Documented By: RICK Non-Admin Reason: No Insulin Coverage Melatonin (Melatonin 3 Mg Tablet) 6 mg PO BEDTIME PRN PRN Reason: Insomnia Last Admin: 10/20/22 01:18 Dose: 6 mg Documented By: BROCK Morphine Sulfate (Morphine Sulfate 4 Mg/Ml Cartridge) 4 mg IVPUSH Q4H PRN; Protocol PRN Reason: Pain, Severe (Pain Scale 7-10) Ondansetron HCl (Ondansetron Hcl 4 Mg/2 Ml Vial) 4 mg IVPUSH Q8H PRN PRN Reason: Nausea and Vomiting Pharmacy Consult (Consult Rx Perform Med Rec) 1 each MISCELLANE ONCE PRN PRN Reason: Consult order Sodium Chloride (0.9 % Sodium Chloride Flush 3 Ml Syringe) 3 ml IVFLUSH QSHIFT [facility] Last Admin: 10/20/22 09:51 Dose: Not Given Documented By: RICK Non-Admin Reason: IV Running Tamsulosin HCl (Tamsulosin Hcl 0.4 Mg Capsule) 0.4 mg PO BEDTIME [facility] [place] Last Admin: 10/20/22 01:18 Dose: 0.4 mg Documented By: BROCK Labs CBC & Chem 7: 10/20/22 06:14 10/20/22 06:14 Labs: Laboratory Results - last 24 hr 10/19/22 10/19/22 10/19/22 15:20 15:20 15:20 MCV 82.8 MCH 27.2 MCHC 32.8 RDW 13.3 Plt Count 425 H MPV 9.8 Immature Gran % (Auto) 0.2 Neut % (Auto) 88.5 H Lymph % (Auto) 6.8 L [place] % (Auto) 4.1 Eos % (Auto) 0.2 Baso % (Auto) 0.2 Lymph # (Auto) 0.8 L [place] # (Auto) 0.5 Eos # (Auto) 0.0 Baso # (Auto) 0.0 Abs Immat Gran (auto) 0.03 Absolute Neuts (auto) 10.8 H Absolute Nucleated RBC 0.000 Nucleated RBC % (auto) 0.0 Anion Gap 13 Estim Creat Clear Calc 73.7 Estimated GFR > 60 POC Glucose Random Glucose 205 H Lactic Acid Lactic Acid F/U @ 2Hr Lactic Acid F/U @ 4Hr Calcium 9.9 Total Bilirubin 1.3 H AST 16 ALT 23 Alkaline Phosphatase 129 H Total Protein 7.3 Albumin 4.6 Lipase 68 Urine Color Urine Appearance Urine pH Ur Specific [place] Urine Protein Urine Glucose (UA) Urine Ketones Urine Blood Urine Nitrite Ur Leukocyte Esterase Urine RBC Urine WBC Ur Squamous Epith Cells Urine Bacteria Hyaline Casts COVID-19 ([facility]) COVID-19 Clin Com Influenza Type A (SE) Negative Influenza Type B (SE) Negative Influenza A & B Note See Note 10/19/22 10/19/22 10/19/22 15:20 17:53 21:44 MCV MCH MCHC RDW Plt Count MPV Immature Gran % (Auto) Neut % (Auto) Lymph % (Auto) [place] % (Auto) Eos % (Auto) Baso % (Auto) Lymph # (Auto) [place] # (Auto) Eos # (Auto) Baso # (Auto) Abs Immat Gran (auto) Absolute Neuts (auto) Absolute Nucleated RBC Nucleated RBC % (auto) Anion Gap Estim Creat Clear Calc Estimated GFR POC Glucose 226 H Random Glucose Lactic Acid 3.8 H* Lactic Acid F/U @ 2Hr Lactic Acid F/U @ 4Hr Calcium Total Bilirubin AST ALT Alkaline Phosphatase Total Protein Albumin Lipase Urine Color Urine Appearance Urine pH Ur Specific [place] Urine Protein Urine Glucose (UA) Urine Ketones Urine Blood Urine Nitrite Ur Leukocyte Esterase Urine RBC Urine WBC Ur Squamous Epith Cells Urine Bacteria Hyaline Casts COVID-19 ([facility]) Negative COVID-19 Clin Com See Note Influenza Type A (SE) Influenza Type B (SE) Influenza A & B Note 10/19/22 10/20/22 10/20/22 22:22 00:10 00:55 MCV MCH MCHC RDW Plt Count MPV Immature Gran % (Auto) Neut % (Auto) Lymph % (Auto) [place] % (Auto) Eos % (Auto) Baso % (Auto) Lymph # (Auto) [place] # (Auto) Eos # (Auto) Baso # (Auto) Abs Immat Gran (auto) Absolute Neuts (auto) Absolute Nucleated RBC Nucleated RBC % (auto) Anion Gap Estim Creat Clear Calc Estimated GFR POC Glucose 133 H Random Glucose Lactic Acid Lactic Acid F/U @ 2Hr 2.4 H* Lactic Acid F/U @ 4Hr Calcium Total Bilirubin AST ALT Alkaline Phosphatase Total Protein Albumin Lipase Urine Color Dark Yellow Urine Appearance Clear Urine pH 6.0 Ur Specific [place] 1.025 Urine Protein 30 (1+) H Urine Glucose (UA) Negative Urine Ketones Negative Urine Blood Trace H Urine Nitrite Positive H Ur Leukocyte Esterase Trace H Urine RBC 3-5 H Urine WBC 11-20 H Ur Squamous Epith Cells 0-2 Urine Bacteria 4+ Hyaline Casts 0-2 COVID-19 ([facility]) COVID-19 Clin Com Influenza Type A (SE) Influenza Type B (SE) Influenza A & B Note 10/20/22 10/20/22 10/20/22 02:29 06:04 06:14 MCV 85.7 MCH 27.0 MCHC 31.5 RDW 13.3 Plt Count 284 D MPV 10.4 Immature Gran % (Auto) 0.4 Neut % (Auto) 55.6 Lymph % (Auto) 31.7 [place] % (Auto) 10.7 Eos % (Auto) 1.3 Baso % (Auto) 0.3 Lymph # (Auto) 2.4 [place] # (Auto) 0.8 Eos # (Auto) 0.1 Baso # (Auto) 0.0 Abs Immat Gran (auto) 0.03 Absolute Neuts (auto) 4.2 Absolute Nucleated RBC 0.000 Nucleated RBC % (auto) 0.0 Anion Gap Estim Creat Clear Calc Estimated GFR POC Glucose 150 H Random Glucose Lactic Acid Lactic Acid F/U @ 2Hr Lactic Acid F/U @ 4Hr 1.4 Calcium Total Bilirubin AST ALT Alkaline Phosphatase Total Protein Albumin Lipase Urine Color Urine Appearance Urine pH Ur Specific [place] Urine Protein Urine Glucose (UA) Urine Ketones Urine Blood Urine Nitrite Ur Leukocyte Esterase Urine RBC Urine WBC Ur Squamous Epith Cells Urine Bacteria Hyaline Casts COVID-19 ([facility]) COVID-19 Clin Com Influenza Type A (SE) Influenza Type B (SE) Influenza A & B Note 10/20/22 06:14 MCV MCH MCHC RDW Plt Count MPV Immature Gran % (Auto) Neut % (Auto) Lymph % (Auto) [place] % (Auto) Eos % (Auto) Baso % (Auto) Lymph # (Auto) [place] # (Auto) Eos # (Auto) Baso # (Auto) Abs Immat Gran (auto) Absolute Neuts (auto) Absolute Nucleated RBC Nucleated RBC % (auto) Anion Gap 13 Estim Creat Clear Calc 91.4 Estimated GFR > 60 POC Glucose Random Glucose 130 H Lactic Acid Lactic Acid F/U @ 2Hr Lactic Acid F/U @ 4Hr Calcium 7.9 L D Total Bilirubin AST ALT Alkaline Phosphatase Total Protein Albumin Lipase Urine Color Urine Appearance Urine pH Ur Specific [place] Urine Protein Urine Glucose (UA) Urine Ketones Urine Blood Urine Nitrite Ur Leukocyte Esterase Urine RBC Urine WBC Ur Squamous Epith Cells Urine Bacteria Hyaline Casts COVID-19 ([facility]) COVID-19 Clin Com Influenza Type A (SE) Influenza Type B (SE) Influenza A & B Note Assessment and Plan (1) Peripheral neuropathy: Status: Acute Plan This is a 52-year-old female with pertinent history of essential hypertension, peripheral neuropathy, peripheral arterial disease status post left leg amputation, [id number] diabetes mellitus who presents to the emergency department for evaluation of abdominal discomfort. Severe Sepsis secondary to urinary tract infection and pyelonephritis Tachycardia, leukocytosis, lactic acidosis Continue IV Rocephin Follow urine cultures IV fluids Pain management as needed Continue Flomax Relative polycythemia Secondary to above History of peripheral neuropathy, unspecified Continue gabapentin Diabetes mellitus with hyperglycemia type 2 Sliding scale, ADA diet DVT prophylaxis with pneumatic compression boots Attending Dr. Tripp Full code Continued hospitalization for treatment of severe sepsis secondary to pyelonephritis requiring IV antibiotics Time Spent With Patient Time: Total time managing care of this patient today ____ minutes. Quality Stroke Does the patient have a stroke diagnosis?: No VTE Prior VTE?: No VTE Risk Level:: Medical - low VTE Device Contraindication: Treatment Not Indicated VTE Drug Contraindication: Treatment Not Indicated
--- NOTE | 2022-10-20 10:27 | PHA.MEDREC ---
Pharmacy Consult ? Medication Reconciliation Pharmacy has completed the medication reconciliation.
[2022-10-20] MEDS: Morphine Sulfate 4 MG/ML CARTRIDGE IVPUSH ×3 (11:29→21:47)
[2022-10-20] MEDS: ondansetron HCL 4 MG/2 ML VIAL IVPUSH ×2 (11:29→17:39)
[2022-10-20 12:47] LABS: Glucose, Whole Blood 132 mg/dL (60-115)
--- NOTE | 2022-10-20 13:19 | P.CNUR_ITS ---
History of Present Illness Consult details Consult date: 10/20/22 Narrative: Consulting complaint : Pyelonephritis 52-year-old female Background insulin diabetic, peripheral neuropathy, status post left leg amputation Presentation with left pyelonephritis UA positive nitrites CT scan question of small stone on left side Has been admitted and treated with IV antibiotics Flomax started Culture pending Reports sugars typically run in 130s CT reviewed. Stone noncontributory. Adjust antibiotics depending on cultures. Encourage tight sugar control Review of Systems Constitutional: Constitutional: Reports as per HPI and Reports no additional constitutional complaints Cardiovascular: Cardiovascular: Reports as per HPI and Reports no additional cardiovascular complaints Respiratory: Respiratory: Reports as per HPI and Reports no additional respiratory complaints Gastrointestinal: Gastrointestinal: Reports as per HPI and Reports no additional gastrointestinal complaints Genitourinary: Genitourinary: Reports as per HPI Musculoskeletal: Musculoskeletal: Reports no additional musculoskeletal compla ints and Reports as per HPI Neurologic: Reports system reviewed and no additional complaints, except as documented and Reports as per HPI [facility] Past Medical History Medical History (Updated 10/20/22 @ 13:50 by Maxime Bustamante MD) Hypertension Non-insulin dependent type 2 diabetes mellitus Peripheral neuropathy Surgical History Surgical History (Updated 10/20/22 @ 00:37 by Diane Peters MD) Amputated left leg Social History Social History Smoked in Last 30 Days: No Advance Directives: No Advance Directives Information Provided: No Meds Allergies Allergy/AdvReac Type Severity Reaction Status Date / Time Iodinated Contrast Media Allergy Unknown HIVES Verified 10/19/22 15:06 [IV DYE, IODINE CONTAINING] Active Medications: Current Medications Acetaminophen (Acetaminophen 325 Mg Tablet) 650 mg PO Q6H PRN PRN Reason: Pain, Mild (Pain Scale 1-3) Last Admin: 10/20/22 01:18 Dose: 650 mg Dextrose (Dextrose 50 % 25 Gm/50 Ml Syringe) 25 gm IVPUSH Q15M PRN; Protocol PRN Reason: per Hypoglycemia Standing Ord. Glucose (Glucose Gel 15 Gm Gel..Gram.) 15 gm PO Q15M PRN; Protocol PRN Reason: per Hypoglycemia Standing Ord. Lactated Ringer's (Lr) 1,000 mls @ 150 mls/hr IVCONT .Q6H40M [facility] Last Admin: 10/20/22 11:44 Dose: 150 mls/hr Ceftriaxone Sodium 1 gm/ (Sodium Chloride) 50 mls @ 100 mls/hr IV Q24H [facility] Insulin Glargine (Insulin Glargine,Hum.Rec.Anlog 100 Unit/Ml 10 Ml Vial) 25 unit SUBCUT BEDTIME [facility] Last Admin: 10/20/22 01:20 Dose: Not Given Insulin Human Lispro (Insulin Lispro 100 Unit/Ml 3 Ml Vial) 0 unit SUBCUT QID ACHS [facility]; Protocol Last Admin: 10/20/22 12:52 Dose: Not Given Melatonin (Melatonin 3 Mg Tablet) 6 mg PO BEDTIME PRN PRN Reason: Insomnia Last Admin: 10/20/22 01:18 Dose: 6 mg Morphine Sulfate (Morphine Sulfate 4 Mg/Ml Cartridge) 4 mg IVPUSH Q4H PRN; Protocol PRN Reason: Pain, Severe (Pain Scale 7-10) Last Admin: 10/20/22 11:29 Dose: 4 mg Ondansetron HCl (Ondansetron Hcl 4 Mg/2 Ml Vial) 4 mg IVPUSH Q8H PRN PRN Reason: Nausea and Vomiting Last Admin: 10/20/22 11:29 Dose: 4 mg Pharmacy Consult (Consult Rx Perform Med Rec) 1 each MISCELLANE ONCE PRN PRN Reason: Consult order Sodium Chloride (0.9 % Sodium Chloride Flush 3 Ml Syringe) [facility] Last Admin: 10/20/22 09:51 Dose: Not Given Tamsulosin HCl (Tamsulosin Hcl 0.4 Mg Capsule) 0.4 mg PO BEDTIME [facility] Last Admin: 10/20/22 01:18 Dose: 0.4 mg Home Medications Medication Instructions Recorded Confirmed Last Taken Type amlodipine 5 mg tablet 1 tab PO DAILY 10/20/22 10/20/22 10/18/22 History citalopram 40 mg tablet 1 tab PO DAILY 10/20/22 10/20/22 10/18/22 History dextroamphetamine-amphetamine 30 1 tab PO BID 10/20/22 10/20/22 10/18/22 History mg tablet fluticasone 500 mcg-salmeterol 50 1 puff inhalation Q12H 10/20/22 10/20/22 10/18/22 History mcg/dose blistr powdr for inhalation (Advair Diskus) gabapentin 100 mg capsule 1 cap PO BEDTIME 1210/20/22 10/18/22 History hydroxyzine pamoate 25 mg capsule 2 cap PO TID PRN Anxiety 10/20/22 10/20/22 10/18/22 History insulin detemir U-100 100 unit/mL 30 unit subcut BEDTIME 10/20/22 10/20/22 10/18/22 History (3 mL) subcutaneous pen (Levemir FlexTouch U-100 Insulin) insulin lispro 100 unit/mL 20 unit subcut TID 10/20/22 10/20/22 10/18/22 History subcutaneous pen levocetirizine 5 mg tablet 1 tab PO DAILY 10/20/22 10/20/22 10/18/22 History mirtazapine 30 mg tablet 1 tab PO BEDTIME 10/20/22 10/20/22 10/18/22 History montelukast 10 mg tablet 1 tab PO QPM 10/20/22 10/20/22 10/18/22 History pantoprazole 20 mg tablet,delayed 1 tab PO DAILY 10/20/22 10/20/22 10/18/22 History release potassium chloride 10 mEq 1 tab PO BID 10/20/22 10/20/22 10/18/22 History tablet,extended release umeclidinium 62.5 mcg/actuation 1 puff inhalation DAILY 10/20/22 10/20/22 10/18/22 History blister powder for inhalation (Incruse Ellipta) valsartan 320 1 tab PO DAILY 10/20/22 10/20/22 10/18/22 History mg-hydrochlorothiazide 25 mg tablet Physical Exam Vital Signs: Vital Signs: Last Vital Signs Temp 99.8 F 10/20/22 00:53 Pulse 68 10/20/22 07:49 Resp 16 10/20/22 07:49 BP 111/62 10/20/22 07:49 Pulse Ox 96 10/20/22 07:49 O2 Del Method 10/20/22 07:49 BMI result Body Mass Index 25.0 Const: General: cooperative, healthy appearing, comfortable and no acute distress Orientation/consciousness: patient oriented x3 HEENT: Face and sinus: Yes normal facial exam Mouth: moist mucous membranes Neck: Neck: Yes normal visual inspection, Yes full ROM and Yes trachea midline Chest: Chest palpation & inspection: normal inspection of the chest Resp: Effort & Inspection: normal respiratory effort, able to speak in complete sentences and no respiratory distress GI: Inspection: Yes normal to inspection Back/Spine/Pelvis: Cervical Spine: normal cervical lordosis Thoracic/Lumbar Spine: thoracic and lumbar spine normal to inspection Skin: General skin exam: no rashes or lesions noted Neuro: General: patient oriented x3, tone normal and moves all extremities Extrem: General: Yes normal to inspection and Yes capillary refill normal Results Labs Result diagrams: 10/20/22 06:14 10/20/22 06:14 Labs: Abnormal lab results 10/19/22 10/19/22 10/19/22 Range/Units 15:20 15:20 17:53 WBC 12.2 H (4.8-10.8) X10*3/uL RBC 6.00 H (4.20-5.50) X10*6/uL Hgb 16.3 H (12.0-16.0) g/dl Hct 49.7 H (37.0-47.0) % Plt Count 425 H (160-400) X10*3/uL Neut % (Auto) 88.5 H (45-73) % Lymph % (Auto) 6.8 L (20-40) % Lymph # (Auto) 0.8 L (1.2-4.9) X10*3/uL Absolute Neuts (auto) 10.8 H (2.0-8.3) x10*3/uL Carbon Dioxide 33 H (22-29) mmol/L BUN (9-16) mg/dL POC Glucose 226 H (60-115) mg/dL Random Glucose 205 H (60-115) mg/dL Lactic Acid (0.5-2.0) mmol/L Lactic Acid F/U @ 2Hr (0.5-2.0) mmol/L Calcium (8.4-10.2) mg/dL Total Bilirubin 1.3 H (0.0-1.0) mg/dL Alkaline Phosphatase 129 H (39-117) U/L Urine Protein (Neg-Trace) mg/dL Urine Blood (Negative) Urine Nitrite (Negative) Ur Leukocyte Esterase (Negative) Urine RBC (0-2) /HPF Urine WBC (0-5) /HPF 10/19/22 10/19/22 10/20/22 Range/Units 21:44 22:22 00:10 WBC (4.8-10.8) X10*3/uL RBC (4.20-5.50) X10*6/uL Hgb (12.0-16.0) g/dl Hct (37.0-47.0) % Plt Count (160-400) X10*3/uL Neut % (Auto) (45-73) % Lymph % (Auto) (20-40) % Lymph # (Auto) (1.2-4.9) X10*3/uL Absolute Neuts (auto) (2.0-8.3) x10*3/uL Carbon Dioxide (22-29) mmol/L BUN (9-16) mg/dL POC Glucose (60-115) mg/dL Random Glucose (60-115) mg/dL Lactic Acid 3.8 H* (0.5-2.0) mmol/L Lactic Acid F/U @ 2Hr 2.4 H* (0.5-2.0) mmol/L Calcium (8.4-10.2) mg/dL Total Bilirubin (0.0-1.0) mg/dL Alkaline Phosphatase (39-117) U/L Urine Protein 30 (1+) H (Neg-Trace) mg/dL Urine Blood Trace H (Negative) Urine Nitrite Positive H (Negative) Ur Leukocyte Esterase Trace H (Negative) Urine RBC 3-5 H (0-2) /HPF Urine WBC 11-20 H (0-5) /HPF 10/20/22 10/20/22 10/20/22 Range/Units 00:55 06:04 06:14 WBC (4.8-10.8) X10*3/uL RBC (4.20-5.50) X10*6/uL Hgb 11.5 L D (12.0-16.0) g/dl Hct 36.5 L D (37.0-47.0) % Plt Count (160-400) X10*3/uL Neut % (Auto) (45-73) % Lymph % (Auto) (20-40) % Lymph # (Auto) (1.2-4.9) X10*3/uL Absolute Neuts (auto) (2.0-8.3) x10*3/uL Carbon Dioxide (22-29) mmol/L BUN (9-16) mg/dL POC Glucose 133 H 150 H (60-115) mg/dL Random Glucose (60-115) mg/dL Lactic Acid (0.5-2.0) mmol/L Lactic Acid F/U @ 2Hr (0.5-2.0) mmol/L Calcium (8.4-10.2) mg/dL Total Bilirubin (0.0-1.0) mg/dL Alkaline Phosphatase (39-117) U/L Urine Protein (Neg-Trace) mg/dL Urine Blood (Negative) Urine Nitrite (Negative) Ur Leukocyte Esterase (Negative) Urine RBC (0-2) /HPF Urine WBC (0-5) /HPF 10/20/22 10/20/22 Range/Units 06:14 12:34 WBC (4.8-10.8) X10*3/uL RBC (4.20-5.50) X10*6/uL Hgb (12.0-16.0) g/dl Hct (37.0-47.0) % Plt Count (160-400) X10*3/uL Neut % (Auto) (45-73) % Lymph % (Auto) (20-40) % Lymph # (Auto) (1.2-4.9) X10*3/uL Absolute Neuts (auto) (2.0-8.3) x10*3/uL Carbon Dioxide (22-29) mmol/L BUN 8 L (9-16) mg/dL POC Glucose 132 H (60-115) mg/dL Random Glucose 130 H (60-115) mg/dL Lactic Acid (0.5-2.0) mmol/L Lactic Acid F/U @ 2Hr (0.5-2.0) mmol/L Calcium 7.9 L D (8.4-10.2) mg/dL Total Bilirubin (0.0-1.0) mg/dL Alkaline Phosphatase (39-117) U/L Urine Protein (Neg-Trace) mg/dL Urine Blood (Negative) Urine Nitrite (Negative) Ur Leukocyte Esterase (Negative) Urine RBC (0-2) /HPF Urine WBC (0-5) /HPF Short CBC 10/19/22 10/20/22 Range/Units 15:20 06:14 WBC 12.2 H 7.6 (4.8-10.8) X10*3/uL Hgb 16.3 H 11.5 L D (12.0-16.0) g/dl Hct 49.7 H 36.5 L D (37.0-47.0) % Plt Count 425 H 284 D (160-400) X10*3/uL BMP 10/19/22 10/20/22 15:20 06:14 Sodium 138 139 Potassium 4.1 3.5 Chloride 96 103 Carbon Dioxide 33 H 27 BUN 14 8 L Creatinine 0.88 0.71 Calcium 9.9 7.9 L D Liver Function 10/19/22 Range/Units 15:20 Total Bilirubin 1.3 H (0.0-1.0) mg/dL AST 16 (5-31) U/L ALT 23 (0-31) U/L Alkaline Phosphatase 129 H (39-117) U/L Albumin 4.6 (3.5-5.0) g/dL Urine 10/19/22 Range/Units 22:22 Urine Color Dark Yellow Urine Appearance Clear Urine pH 6.0 (5.0-9.0) Ur Specific [place] 1.025 (1.005-1.025) Urine Protein 30 (1+) H (Neg-Trace) mg/dL Urine Glucose (UA) Negative (Negative) mg/dL All other labs normal. Assessment and Plan (1) UTI (urinary tract infection): Status: Acute (2) Sepsis: Status: Acute (3) Pyelonephritis: Status: Acute (4) Insulin dependent type 2 diabetes mellitus: Status: Acute Plan Culture pending Adjust coverage based on results Time Spent With Patient Time: Total time managing care of this patient today ____ minutes. Procedures Date of Service Date of Service: 10/20/22
[2022-10-20 13:49] LABS: Estimated Average Glucose 148 mg/dL; Hemoglobin A1c % 6.8 %
[2022-10-20 15:47] VITALS: BP 133/60; PULSE 70; RESP 12; TEMP 36.9; O2SAT 94
--- NOTE | 2022-10-20 16:26 | MHC.CM.PN ---
PT REPORTS SHE LIVES IN [facility] WHERE SHE IS PRIMARILY INDEPENDENT BUT DOES HAVE SUPPORT WHEN NEEDED PT HAS A PCP BACK HOME WELL, UNSURE OF NAME PT HAS NO HOME SERVICES AND USES A W/C FOR MOBILITY DCP: RETURN TO SISTERS HOME VIA FAMILY TRANSPORT OF NOTE: PT WAS IN THE AREA FOR HER BROTHERS AND WILL BE RETURNING HOME SOON
[2022-10-20 18:13] LABS: Glucose, Whole Blood 132 mg/dL (60-115)
[2022-10-20 21:06] LABS: Glucose, Whole Blood 147 mg/dL (60-115)
[2022-10-20] MEDS: Insulin Glargine,Hum.rec.anlog 100 UNIT/ML 10 ML VIAL 25 UNIT SUBCUT (21:39)
[2022-10-20] MEDS: cefTRIAXone sodium 1 GM in 0.9 % Sodium Chloride 50 ML IV (21:39)
[2022-10-21 00:28] VITALS: BP 126/57; PULSE 72; RESP 16; TEMP 37.2; O2SAT 92
--- NOTE | 2022-10-21 03:22 | PC.NURSE ---
Pt sleeping at this time, respirations regular.
[2022-10-21] MEDS: Morphine Sulfate 4 MG/ML CARTRIDGE IVPUSH ×4 (04:42→21:30)
[2022-10-21] MEDS: Lactated Ringers 1,000 ML 150 ML IVCONT ×4 (04:42→22:05)
[2022-10-21] MEDS: ondansetron HCL 4 MG/2 ML VIAL IVPUSH ×3 (04:42→14:22)
[2022-10-21 05:50] VITALS: BP 136/75; PULSE 74; RESP 15; TEMP 37; O2SAT 92
--- NOTE | 2022-10-21 05:55 | PC.NURSE ---
Pt sleeping at this time, respirations regular.
[2022-10-21 06:42] LABS: Anion Gap 12 (12-20); Blood Urea Nitrogen 5 mg/dL (9-16); Calcium 8.4 mg/dL (8.4-10.2); Carbon Dioxide 28 mmol/L (22-29); Chloride 104 mmol/L (96-108); Creatinine Clr Calc Pharmacy 99.8; Estimated Glomerular Filt Rate > 60; Glucose Random 124 mg/dL (60-115); Potassium 3.4 mmol/L (3.3-5.1); Sodium 141 mmol/L (135-145)
[2022-10-21 07:40] LABS: Glucose, Whole Blood 129 mg/dL (60-115)
--- NOTE | 2022-10-21 11:13 | HO.PM.IMPN ---
Subjective Subjective Date of Service: 10/21/22 Review of Systems Follow-up sepsis secondary to UTI Still with flank pain Denies nausea, vomiting, diarrhea Physical Exam Vital Signs: Vital Signs: Last Vital Signs Temp 98.6 F 10/21/22 05:50 Pulse 74 10/21/22 05:50 Resp 15 10/21/22 05:50 BP 136/75 10/21/22 05:50 Pulse Ox 92 10/21/22 05:50 O2 Del Method 10/21/22 05:50 BMI result Body Mass Index 25.0 Appearing in no acute distress lung sounds are clear to auscultation heart regular rate rhythm, clear S1, S2 positive bowel sounds, abdomen is soft, nontender neuro patient is alert x3, no focal deficits Objective Data Active Medications Acetaminophen (Acetaminophen 325 Mg Tablet) 650 mg PO Q6H PRN PRN Reason: Pain, Mild (Pain Scale 1-3) Last Admin: 10/20/22 01:18 Dose: 650 mg Documented By: BROCK Dextrose (Dextrose 50 % 25 Gm/50 Ml Syringe) 25 gm IVPUSH Q15M PRN; Protocol PRN Reason: per Hypoglycemia Standing Ord. Glucose (Glucose Gel 15 Gm Gel..Gram.) 15 gm PO Q15M PRN; Protocol PRN Reason: per Hypoglycemia Standing Ord. Lactated Ringer's (Lr) 1,000 mls @ 150 mls/hr IVCONT .Q6H40M [facility] Last Admin: 10/21/22 07:56 Dose: 150 mls/hr Documented By: MARLENE Ceftriaxone Sodium 1 gm/ (Sodium Chloride) 50 mls @ 100 mls/hr IV Q24H [facility] Last Infusion: 10/21/22 00:41 Dose: 0 mls/hr Documented By: JASON Insulin Glargine (Insulin Glargine,Hum.Rec.Anlog 100 Unit/Ml 10 Ml Vial) 25 unit SUBCUT BEDTIME [facility] Last Admin: 10/20/22 21:39 Dose: 25 unit Documented By: JASON Insulin Human Lispro (Insulin Lispro 100 Unit/Ml 3 Ml Vial) 0 unit SUBCUT QIDACHS [facility]; Protocol Last Admin: 10/21/22 07:27 Dose: Not Given Documented By: MARLENE Non-Admin Reason: No Insulin Coverage Melatonin (Melatonin 3 Mg Tablet) 6 mg PO BEDTIME PRN PRN Reason: Insomnia Last Admin: 10/20/22 21:47 Dose: 6 mg Documented By: JASON Morphine Sulfate (Morphine Sulfate 4 Mg/Ml Cartridge) 4 mg IVPUSH Q4H PRN; Protocol PRN Reason: Pain, Severe (Pain Scale 7-10) Last Admin: 10/21/22 09:37 Dose: 4 mg Documented By: MARLENE Ondansetron HCl (Ondansetron Hcl 4 Mg/2 Ml Vial) 4 mg IVPUSH Q8H PRN PRN Reason: Nausea and Vomiting Last Admin: 10/21/22 07:56 Dose: 4 mg Documented By: MARLENE Pharmacy Consult (Consult Rx Perform Med Rec) 1 each MISCELLANE ONCE PRN PRN Reason: Consult order Sodium Chloride (0.9 % Sodium Chloride Flush 3 Ml Syringe) 3 ml IVFLUSH QSHIFT [facility] Last Admin: 10/21/22 06:59 Dose: Not Given Documented By: MARLENE Non-Admin Reason: Med Not Available Tamsulosin HCl (Tamsulosin Hcl 0.4 Mg Capsule) 0.4 mg PO BEDTIME [facility] Last Admin: 10/20/22 21:39 Dose: 0.4 mg Documented By: JASON Labs CBC & Chem 7: 10/20/22 06:14 10/21/22 05:59 Labs: Laboratory Results - last 24 hr 10/20/22 10/20/22 10/20/22 06:14 12:34 18:07 Anion Gap Estim Creat Clear Calc Estimated GFR POC Glucose 132 H 132 H Random Glucose Estimat Average Glucose 148 Hemoglobin A1c % 6.8 Calcium 10/20/22 10/21/22 10/21/22 21:01 05:59 07:22 Anion Gap 12 Estim Creat Clear Calc 99.8 Estimated GFR > 60 POC Glucose 147 H 129 H Random Glucose 124 H Estimat Average Glucose Hemoglobin A1c % Calcium 8.4 D Microbiology Microbiology Results: Microbiology 10/19/22 21:44 Blood Culture - Preliminary Blood - Venous No growth after 24 hours. 10/19/22 21:44 Blood Culture - Preliminary Blood - Venous No growth after 24 hours. Assessment and Plan (1) Peripheral neuropathy: Status: Acute Plan This is a 52-year-old female with pertinent history of essential hypertension, peripheral neuropathy, peripheral arterial disease status post left leg amputation, ase-kwdrkzd-ewknntmye diabetes mellitus who presents to the emergency department for evaluation of abdominal discomfort. Severe Sepsis secondary to urinary tract infection and pyelonephritis. Sepsis resolved Tachycardia, leukocytosis, lactic acidosis Continue IV Rocephin urine cx pending IV fluids Pain management as needed Continue Flomax Relative polycythemia Secondary to above History of peripheral neuropathy, unspecified Continue gabapentin Diabetes mellitus with hyperglycemia type 2 Sliding scale, ADA diet DVT prophylaxis with pneumatic compression boots Attending Dr. Tripp Full code Continued hospitalization for treatment of severe sepsis secondary to pyelonephritis requiring IV antibiotics Time Spent With Patient Time: Total time managing care of this patient today ____ minutes. Quality Stroke Does the patient have a stroke diagnosis?: No VTE Prior VTE?: No VTE Risk Level:: Medical - low VTE Device Contraindication: Treatment Not Indicated VTE Drug Contraindication: Treatment Not Indicated
[2022-10-21 13:37] LABS: Glucose, Whole Blood 111 mg/dL (60-115)
[2022-10-21 17:20] VITALS: BP 141/76; PULSE 67; RESP 20; TEMP 37.2; O2SAT 94
[2022-10-21 18:25] LABS: Glucose, Whole Blood 117 mg/dL (60-115)
--- NOTE | 2022-10-21 19:31 | PC.NURSE ---
Addendum entered by Jess Rick RN 10/22/22 06:53: report given to JIGAR Park Original Note: report received from JIGAR Johnson pt is alert and oriented resting comfortably no signs of acute distress notice breathing equally unlabored
[2022-10-21 19:39] VITALS: BP 151/72; PULSE 74; RESP 18; TEMP 26.4; O2SAT 98
[2022-10-21 20:51] LABS: Glucose, Whole Blood 137 mg/dL (60-115)
[2022-10-21] MEDS: Insulin Glargine,Hum.rec.anlog 100 UNIT/ML 10 ML VIAL 25 UNIT SUBCUT (21:29)
[2022-10-21] MEDS: cefTRIAXone sodium 1 GM in 0.9 % Sodium Chloride 50 ML IV (21:31)
[2022-10-21] MEDS: Tamsulosin HCL 0.4 MG CAPSULE PO (21:32)
[2022-10-21] MEDS: Melatonin 3 MG TABLET 6 MG PO (21:33)
[2022-10-22] MEDS: Morphine Sulfate 4 MG/ML CARTRIDGE IVPUSH (05:14)
[2022-10-22 07:04] LABS: Glucose, Whole Blood 119 mg/dL (60-115)
[2022-10-22] MEDS: 0.9 % Sodium Chloride Flush 3 ML SYRINGE IVFLUSH (10:34)
[2022-10-22 11:19] LABS: Glucose, Whole Blood 131 mg/dL (60-115)
--- NOTE | 2022-10-22 11:54 | PM.DS ---
DS: Providers Provider Date of Service: 10/22/22 Date of admission: 10/19/22 23:45 Primary care physician: Nonstaff Physician Consults: 10/20/22 00:39 Consult to Urology Routine Consulting Provider: Maxime Bustamante Reason for consultation: kidney stones with UTI Attending physician on discharge: [facility] [employer] Discharging clinician: Darlyn Sampson DS: Diagnosis Discharge Diagnosis (1) Peripheral neuropathy: Status: Acute DS: Summary Hospital Course Hospital Course: History and physical as per admitting provider This is a 52-year-old female with pertinent history of essential hypertension, peripheral neuropathy, peripheral arterial disease status post left leg amputation, wvn-rvmavar-thvetbext diabetes mellitus who presents to the emergency department for evaluation of abdominal discomfort.? Patient states it started yesterday and is associated with increased urinary frequency.? Also has been having associated fever, chills, nausea and vomiting.? No history of UTI.? No history of kidney stones.? Patient states she has had decreased p.o. intake due to the same.? She denies chest discomfort, palpitations, shortness, changes in bowel habits In the emergency department, patient was found to be septic and urine was consistent with UTI.? Imaging revealed right-sided kidney stones . Severe Sepsis secondary to urinary tract infection and pyelonephritis. Sepsis resolved Tachycardia, leukocytosis, lactic acidosis Treated with IV Rocephin Urine culture showing E coli Treated with IV fluids Pain management Continue Flomax Continue 5 more days of Ceftin Relative polycythemia Secondary to above Within normal limits at this time History of peripheral neuropathy, unspecified Continue gabapentin Diabetes mellitus with hyperglycemia type 2 Continue home medications Time Spent with Patient Time attestation: Total time managing care of this patient today ____ minutes. Discharge coordination time: Greater than 30 minutes Quality: Safe Use of Opioids Does Pt have an Active Cancer Diagnosis on the Problem List?: No Quality: Stroke Does the patient have a stroke diagnosis?: No Physical Exam Vital Signs: Vital Signs: Last Vital Signs Temp 79.6 F L 10/21/22 19:39 Pulse 74 10/21/22 19:39 Resp 18 10/21/22 19:39 BP 151/72 H 10/21/22 19:39 Pulse Ox 98 10/21/22 19:39 O2 Del Method 10/21/22 19:39 BMI result Body Mass Index 25.0 Appearing in no acute distress head is normocephalic atraumatic eyes pupils are PERRLA sclera is anicteric mouth throat mucous membranes are intact and moist neck is supple no lymphadenopathy, no JVD noted lung sounds are clear to auscultation heart regular rate rhythm, clear S1, S2 positive bowel sounds, abdomen is soft, nontender neuro patient is alert x3, no focal deficits Left AKA DS: Data Data Completed and Pending Labs on day of discharge: Laboratory Results - last 24 hr 10/21/22 10/21/22 10/21/22 13:30 18:19 20:37 POC Glucose 111 117 H 137 H 10/22/22 10/22/22 06:58 11:15 POC Glucose 119 H 131 H Preliminary micro results at discharge 10/19/22 22:35 Urine Culture - Preliminary Urine clean catch - Urine flowers top Gram negative graham 10/19/22 21:44 Blood Culture - Preliminary Blood - Venous No growth after 48 hours. 10/19/22 21:44 Blood Culture - Preliminary Blood - Venous No growth after 48 hours. Discharge Plan Discharge Anticipated Discharge Date/Time: 10/22/22 11:50 Patient Disposition: Home, Self-Care Discharge Diagnosis: Sepsis secondary to UTI and pyelonephritis Discharge Medications: New tamsulosin 0.4 mg Capsule 0.4 mg PO BEDTIME Qty: 30 0RF Continued citalopram 40 mg tablet 1 tab PO DAILY potassium chloride 10 mEq tablet extended release 1 tab PO BID amlodipine 5 mg tablet 1 tab PO DAILY pantoprazole 20 mg tablet,delayed release (DR/EC) 1 tab PO DAILY dextroamphetamine-amphetamine 30 mg tablet 1 tab PO BID mirtazapine 30 mg tablet 1 tab PO BEDTIME fluticasone propion-salmeterol [Advair Diskus] 500-50 mcg/dose blister with device 1 puff INHALATION Q12H montelukast 10 mg tablet 1 tab PO QPM gabapentin 100 mg capsule 1 cap PO BEDTIME hydroxyzine pamoate 25 mg capsule 2 cap PO TID PRN (Reason: Anxiety) insulin lispro 100 unit/mL insulin pen 20 unit subcut TID Levemir FlexTouch U-100 Insuln 100 unit/mL (3 mL) insulin pen 30 unit subcut BEDTIME valsartan-hydrochlorothiazide 320-25 mg tablet 1 tab PO DAILY levocetirizine 5 mg tablet 1 tab PO DAILY Incruse Ellipta 62.5 mcg/actuation blister with device 1 puff INHALATION DAILY Discharge Orders: Discharge Order (Routine); Ordered 10/22/22 Ordered By: Darlyn Sampson Diet: Advance to usual diet Activity on Discharge: As tolerated Stand Alone Forms: Patient Portal Discharge page Care Plan Goals: Complete resolution of symptoms Health Concerns: Severe sepsis secondary to UTI and pyelonephritis Plan of Treatment: Follow-up with primary care provider as needed Take all medications as prescribed Assessment: See discharge summary
--- NOTE | 2022-10-22 12:01 | MHC.CM.PN ---
PT WILL DC BACK TO [facility] TO TRANSPORT
== END 2022-10-22 14:04 | disposition home or self-care (01) | DRG 720 ==
LOC: HO.ED 23:41 → HO.EDOVER 23:50
PROVIDERS: Nurse Practitioner Family; Urology; Admitting Provider Student in an Organized Health Care Education/Training Program; Emergency Provider Emergency Medicine; Visit Provider Nurse Practitioner Acute Care
DX: A41.9 Sepsis, unspecified organism (principal); E87.21 Acute metabolic acidosis; E11.42 Type 2 diabetes mellitus with diabetic polyneuropathy; E11.51 Type 2 diabetes mellitus with diabetic peripheral angiopathy without gangrene; D75.1 Secondary polycythemia; Z89.612 Acquired absence of left leg above knee; E11.65 Type 2 diabetes mellitus with hyperglycemia; N20.0 Calculus of kidney; B96.20 Unspecified Escherichia coli [E. coli] as the cause of diseases classified elsewhere; E86.0 Dehydration; R65.20 Severe sepsis without septic shock; Z20.822 Contact with and (suspected) exposure to COVID-19; Z91.041 Radiographic dye allergy status; Z79.4 Long term (current) use of insulin; Z79.51 Long term (current) use of inhaled steroids; Z79.899 Other long term (current) drug therapy
CPT/HCPCS: 36415; 71250; 74176; 80048; 80053; 81001; 82947; 83036; 83605; 83690; 85025; 87040; 87086; 87088; 87186; 87502; 87635; 99285; J0696; J2270; J2405

== ENCOUNTER 2023-05-06 13:49 | Outpatient (REF) | payer MEDICAID, SELFPAY ==
--- NOTE | ~2023-05-06 | XR_ITS ---
EXAMINATION: XR CERVICAL SPINE XR LUMBAR SPINE CLINICAL INFORMATION: Spondylosis, back pain, patient unable to remove earring, neck pain. COMPARISON: None. TECHNIQUE: 5 views of the cervical spine. 3 views of the lumbar spine. FINDINGS: CERVICAL SPINE: Straightening of the normal cervical lordosis. Visualization of C6 and C7 limited due to overlying soft tissues. Mild cervical spondylosis. Mild loss of disc space height at C5-C6. LUMBAR SPINE: Straightening of the normal lumbar lordosis. Lumbar vertebral body heights are preserved. Surgical clips right upper quadrant. Electronic pack overlies the posterior left lower abdomen with leads projecting above the upper limits of the film, along the posterior aspect of the thoracic spine. Atherosclerotic aortoiliac calcifications. Status post posterior fixation with vertical rods and transpedicular screws at L4-L5 and L5-S1. Interdisc spacer at L4-L5. Hardware appears intact. Multilevel lumbar spondylosis with moderate loss of disc space height at L3-L4. XR/XR lumbar spine 2-3V IMPRESSION: 1. Posterior fusion hardware at L4-L5 and L5-S1 with interdisc spacer at L4-L5. Hardware appears intact. 2. Multilevel lumbar spondylosis with moderate loss of disc space height at L3-L4.
--- NOTE | ~2023-05-06 | XR_ITS ---
EXAMINATION: XR CERVICAL SPINE XR LUMBAR SPINE CLINICAL INFORMATION: Spondylosis, back pain, patient unable to remove earring, neck pain. COMPARISON: None. TECHNIQUE: 5 views of the cervical spine. 3 views of the lumbar spine. FINDINGS: CERVICAL SPINE: Straightening of the normal cervical lordosis. Visualization of C6 and C7 limited due to overlying soft tissues. Mild cervical spondylosis. Mild loss of disc space height at C5-C6. LUMBAR SPINE: Straightening of the normal lumbar lordosis. Lumbar vertebral body heights are preserved. Surgical clips right upper quadrant. Electronic pack overlies the posterior left lower abdomen with leads projecting above the upper limits of the film, along the posterior aspect of the thoracic spine. Atherosclerotic aortoiliac calcifications. Status post posterior fixation with vertical rods and transpedicular screws at L4-L5 and L5-S1. Interdisc spacer at L4-L5. Hardware appears intact. Multilevel lumbar spondylosis with moderate loss of disc space height at L3-L4. XR/XR cervical spine min 6V IMPRESSION: 1. Posterior fusion hardware at L4-L5 and L5-S1 with interdisc spacer at L4-L5. Hardware appears intact. 2. Multilevel lumbar spondylosis with moderate loss of disc space height at L3-L4.
== END 2023-05-06 13:50 | disposition home or self-care (01) ==
LOC: HO.XRAY 13:49
PROVIDERS: PCP Student in an Organized Health Care Education/Training Program; Visit Provider Nurse Practitioner Family
DX: M47.812 Spondylosis without myelopathy or radiculopathy, cervical region (principal); M47.816 Spondylosis without myelopathy or radiculopathy, lumbar region; M96.1 Postlaminectomy syndrome, not elsewhere classified; Z89.612 Acquired absence of left leg above knee; Z79.01 Long term (current) use of anticoagulants; Z96.89 Presence of other specified functional implants
CPT/HCPCS: 72052; 72100; 99202

== ENCOUNTER → 2023-05-16 09:49 | Outpatient (BNVA) | payer MEDICAID, SELFPAY | PROVIDERS: PCP Student in an Organized Health Care Education/Training Program; Visit Provider Nurse Practitioner Family | DX: Z96.82 Presence of neurostimulator (principal) | CPT/HCPCS: 99211 ==

== ENCOUNTER 2023-07-10 09:16 | Outpatient (REF) | payer MEDICAID, SELFPAY ==
--- NOTE | ~2023-07-10 | MM_ITS ---
EXAMINATION: MM SCREENING DIGITAL BREAST TOMOSYNTHESIS, BILATERAL CLINICAL INFORMATION: Screening. Asymptomatic. COMPARISON: Mammography: This is a baseline study. TECHNIQUE: Digital breast tomosynthesis is performed in both the craniocaudal and mediolateral oblique views along with computer-aided detection (CAD). Synthesized 2D images are generated from the tomosynthesis. FINDINGS: There are scattered areas of fibroglandular density (ACR BI-RADS breast composition Category b). In the upper outer quadrant of the left breast, at a middle depth, there are grouped calcifications which warrant additional mammographic imaging magnification. In the right breast, there are no significant masses, abnormal calcifications, or other abnormalities. MM/MM tomosynthesis screening BI IMPRESSION: Grouped calcifications in the upper-outer quadrant of the left breast warrants additional mammographic imaging magnification. No mammographic signs of malignancy right breast. ASSESSMENT: BI-RADS BI-RADS 0 - Incomplete: Needs additional Imaging. RECOMMENDATION: Additional views of the left breast Radiology department staff will contact the patient for additional imaging. Additional Imaging required This examination should not preclude the clinical evaluation of a suspicious palpable abnormality. This patient's information was entered into a reminder system with a target due date for their next mammogram.
== END 2023-07-10 09:17 | disposition home or self-care (01) ==
LOC: HO.MAMMO 09:16
PROVIDERS: PCP Student in an Organized Health Care Education/Training Program; Visit Provider Student in an Organized Health Care Education/Training Program
DX: Z12.31 Encounter for screening mammogram for malignant neoplasm of breast (principal)
CPT/HCPCS: 77063; 77067

== ENCOUNTER → 2023-07-10 09:30 | Outpatient (BNV) | payer MEDICAID, SELFPAY | PROVIDERS: PCP Student in an Organized Health Care Education/Training Program; Visit Provider Radiology Diagnostic Radiology | DX: Z12.31 Encounter for screening mammogram for malignant neoplasm of breast (principal) | CPT/HCPCS: 77063; 77067 ==

== ENCOUNTER 2023-07-16 13:34 | Emergency (ER) | payer MEDICAID, SELFPAY ==
[2023-07-16 13:57] VITALS: BP 146/71; PULSE 68; RESP 18; TEMP 36.4; O2SAT 97; BMI 27.2
--- NOTE | 2023-07-16 13:59 | ED_ITS ---
HPI - General Adult General Chief complaint: General Medical Stated complaint: Sore throat/Ear ache/Headache Time Seen by Provider: 07/16/23 14:35 Source: patient and RN notes reviewed Mode of arrival: ambulatory Limitations: no limitations History of Present Illness HPI narrative: This is a 52-year-old female presenting to the emergency department with complaints of right ear pain, headaches, sore throat, body aches, and diarrhea since Saturday. Patient admits to having fevers of 102, responding to Tylenol. Patient denies any numbness tingling or weakness. Denies any chest pain or shortness of breath. Denies cough, abdominal pain, nausea, vomiting. She has been taking Imodium for her symptoms as well as Tylenol which has provided her with some relief. Denies any recent swimming. Patient reports that her headache worsens while she is leaning forward. No other complaints or concerns at this time. MD complaint: Sore throat, headache, right ear pain, diarrhea Onset (ago): day(s) Radiation: non-radiation Severity: moderate Quality: aching Pain Consistency: constant Relieving factors: none Exacerbating factors: none Associated symptoms: fever/chills, headaches, loss of appetite and nausea/vomiting Treatments prior to arrival: none Related Data Home Medications Medication Instructions Recorded Confirmed amlodipine 5 mg tablet 1 tab PO DAILY 10/20/22 10/20/22 dextroamphetamine-amphetamine 30 1 tab PO BID 10/20/22 10/20/22 mg tablet gabapentin 100 mg capsule 1 cap PO BEDTIME 10/20/22 10/20/22 insulin detemir U-100 100 unit/mL 30 unit subcut BEDTIME 10/20/22 10/20/22 (3 mL) subcutaneous pen (Levemir FlexTouch U-100 Insulin) insulin lispro 100 unit/mL 20 unit subcut TID 10/20/22 10/20/22 subcutaneous pen mirtazapine 30 mg tablet 1 tab PO BEDTIME 10/20/22 10/20/22 montelukast 10 mg tablet 1 tab PO QPM 10/20/22 10/20/22 pantoprazole 20 mg tablet,delayed 1 tab PO DAILY 10/20/22 10/20/22 release potassium chloride 10 mEq 1 tab PO BID 10/20/22 10/20/22 tablet,extended release valsartan 320 1 tab PO DAILY 10/20/22 10/20/22 mg-hydrochlorothiazide 25 mg tablet albuterol sulfate 90 mcg/actuation 2 puff inhalation Q4H PRN wheezing 05/06/23 aerosol inhaler (Ventolin HFA) aspirin 81 mg tablet,delayed 81 mg PO DAILY 05/06/23 release atorvastatin 10 mg tablet 10 mg PO QAM 05/06/23 bupropion HCl 100 mg tablet,12 hr 100 mg PO QAM 05/06/23 sustained-release cetirizine 10 mg tablet 10 mg PO QAM 05/06/23 clonidine HCl 0.1 mg tablet 0.1 mg PO BEDTIME PRN 05/06/23 clopidogrel 75 mg tablet 75 mg PO QAM 05/06/23 fluticasone 250 mcg-salmeterol 50 1 ea inhalation BID 05/06/23 mcg/dose blistr powdr for inhalation (Advair Diskus) fluticasone propionate 50 1 - 2 spray intranasal QAM 05/06/23 mcg/actuation nasal spray,suspension metformin 500 mg tablet 500 mg PO QAM 05/06/23 Previous Rx's Medication Instructions Recorded doxycycline hyclate 100 mg tablet 100 mg PO BID 5 days #10 tabs 07/16/23 Allergies Allergy/AdvReac Type Severity Reaction Status Date / Time Iodinated Contrast Media Allergy Unknown HIVES Verified 07/16/23 13:57 [IV DYE, IODINE CONTAINING] Review of Systems 2 Review of Systems: Yes all other systems are reviewed and are negative Constitutional: Constitutional: Reports as per [facility] Past Medical History Medical History (Updated 07/16/23 @ 16:26 by GEO Baer) Hypertension Insulin dependent type 2 diabetes mellitus Mild acid reflux Non-insulin dependent type 2 diabetes mellitus Peripheral neuropathy Raynauds disease Surgical History Amputated left leg Social History Social History (Updated 05/06/23 @ 14:21 by Rebeca Callaway) Patient Tobacco Use Status: Former Tobacco user Quit Date: 2006 Advance Directives: No Advance Directives Information Provided: No service: No Current occupational status: disabled Physical Exam ED Vital Signs: Vital Signs - 24 hr 07/16/23 13:57 Temperature 97.5 F Pulse Rate 68 Respiratory Rate 18 Blood Pressure 146/71 H Pulse Oximetry 97 Oxygen Delivery Method Room Air BMI result Body Mass Index 27.2 Const General: cooperative, comfortable and no acute distress Orientation/consciousness: patient oriented x3 Limitations: no limitations HENMT Other: Exquisite tenderness over the maxillary sinuses. Right ear canal with mild erythema, no edema. TM is intact Left auditory canal and TM is unremarkable. Oropharynx is mildly erythematous, no tonsillar hypertrophy or exudate. Uvula is midline. Head: Yes normal to inspection, Yes normocephalic and Yes atraumatic Ears: hearing grossly normal bilaterally General nose exam: Normal external nose present Face and sinus: Yes normal facial exam Mouth: Normal oral and palatal mucosa present, oropharynx normal and moist mucous membranes Throat: Yes posterior oropharynx normal Eyes General: appearance normal, both eyes and all related structures Eyelids: Yes eyelids normal Conjunctivae: conjunctivae normal Sclerae: sclerae normal Pupils: Equal, round and reactive pupils present EOM: EOMs intact bilaterally Neck Neck: Yes normal visual inspection, Yes full ROM and Yes no lymphadenopathy Lymphatic: no lymphadenopathy noted Chest Chest palpation & inspection: normal inspection of the chest Resp Effort & Inspection: normal respiratory effort and able to speak in complete sentences Auscultation: clear to auscultation bilaterally, no crackles, no rales, no rhonchi and no wheezes Cardio Rate: regular rate Rhythm: regular rhythm Heart sounds: S1 normal heart sound present and S2 normal heart sound present GI Inspection: Yes normal to inspection Skin General skin exam: no rashes or lesions noted Trauma: no lacerations or abrasions Wounds: no wounds Neuro General: patient oriented x3 and moves all extremities Cranial nerves: Yes Equal, round and reactive pupils present Extrem General: Yes normal to inspection Right upper extremity: normal to inspection Left upper extremity: normal to inspection Right lower extremity: normal to inspection Left lower extremity: normal to inspection Course Course Course Narrative: This is an RME: Additional HPI, ROS, PE not included below will be deferred to primary provider. 52 year old female presenting with ear pain, throat pain, diarrhea, lasting a few days. Plan: labs, swab Medical Decision Making Medical Decision Making [facility] Narrative: 52-year-old female presenting to the emergency department for evaluation of headache, body aches, sinus pressure, congestion, fevers and chills x 3 days. Patient has exquisite tenderness over her maxillary sinuses. I suspect acute bacterial sinusitis. She has had intermittent fevers. She has a history of diabetes, and asthma. Given risk factors I will prescribe antibiotics. Due to the diarrhea. Advised patient to monitor signs and symptoms and taking antibiotics on a full stomach. Lungs are clear to auscultation bilaterally. Abdomen is soft, nontender nondistended, normoactive bowel sounds present 4 quadrants. Patient will be discharged on doxycycline as patient states that she gets a rash from Augmentin. Advised to finish the full course even if she is feeling better.Given return precautions. Pt understands and agrees with plan. Stable for d/c. Differential Diagnosis Differential Diagnoses: The differential diagnosis associated with the presentation includes Sinusitis, URI, COVID, flu Lab Data MDM Lab Attestation statement: I reviewed the patient's lab results. No leukocytosis, stable H&H, chemistry within normal limits. 07/16/23 14:42 07/16/23 14:42 Labs: Lab Results 07/16/23 07/16/23 07/16/23 Range/Units 14:42 14:42 14:42 WBC 10.6 (4.8-10.8) X10*3/uL RBC 5.02 (4.20-5.50) X10*6/uL Hgb 13.8 (12.0-16.0) g/dl Hct 41.8 (37.0-47.0) % MCV 83.3 (80.0-98.0) fL MCH 27.5 (27.0-33.0) pg MCHC 33.0 (31.0-35.0) g/dl RDW 12.6 (11.0-16.0) % Plt Count 355 (160-400) X10*3/uL MPV 9.8 (9.4-12.3) fL Immature Gran % (Auto) 0.4 (0.0-0.4) % Neut % (Auto) 59.5 (45-73) % Lymph % (Auto) 30.2 (20-40) % [place] % (Auto) 6.4 (2-11) % Eos % (Auto) 3.0 (0-4) % Baso % (Auto) 0.5 (0-2) % Lymph # (Auto) 3.2 (1.2-4.9) X10*3/uL [place] # (Auto) 0.7 (0.1-1.2) X10*3/uL Eos # (Auto) 0.3 (0.0-0.4) X10*3/uL Baso # (Auto) 0.1 (0.0-0.2) X10*3/uL Abs Immat Gran (auto) 0.04 H (0.00-0.03) X10*3/uL Absolute Neuts (auto) 6.3 (2.0-8.3) x10*3/uL Absolute Nucleated RBC 0.000 (0.0-0.012) X10*3/uL Nucleated RBC % (auto) 0.0 (0.0-0.2) /100WBC Sodium 141 (135-145) mmol/L Potassium 3.6 (3.3-5.1) mmol/L Chloride 107 (96-108) mmol/L Carbon Dioxide 28 (22-29) mmol/L Anion Gap 10 L (12-20) BUN 6 L (9-16) mg/dL Creatinine 0.73 (0.5-1.4) mg/dL Estim Creat Clear Calc 98.4 Estimated GFR > 60 Random Glucose 153 H (60-115) mg/dL Calcium 9.9 D (8.4-10.2) mg/dL Magnesium 1.8 (1.6-2.6) mg/dL Total Bilirubin 0.4 (0.0-1.0) mg/dL AST 24 (5-31) U/L ALT 30 (0-31) U/L Alkaline Phosphatase 121 H (39-117) U/L Total Protein 7.2 (6.5-8.0) g/dL Albumin 4.4 (3.5-5.0) g/dL Influenza Type A (PCR) NEGATIVE (Negative) Influenza Type B (PCR) NEGATIVE (Negative) RSV RNA Qual (PCR) NEGATIVE (Negative) SARS-CoV-2 RNA (RT-PCR) NEGATIVE (Negative) Discharge Plan Discharge Clinical Impression: Sinusitis Patient Disposition: Home, Self-Care Instructions: Sinusitis (ED) Additional Instructions: You tested negative for COVID, RSV, flu. Your labs today were reassuring. You likely have a sinus infection. Take prescribed medication as directed. Finish the entire course of antibiotics even if you are feeling better. Take ibuprofen and Tylenol as directed as needed for fevers and pain. Avoid spicy and dairy foods. Stick to a bland diet including bananas, rice, toast. If any new or worsening symptoms occur, including but not limited to chest pain, shortness of breath, abdominal pain, bloody or black stool, please return for re-evaluation. Prescriptions: New doxycycline hyclate 100 mg tablet 100 mg PO BID 5 Days Qty: 10 0RF No Action potassium chloride 10 mEq tablet extended release 1 tab PO BID amlodipine 5 mg tablet 1 tab PO DAILY pantoprazole 20 mg tablet,delayed release (DR/EC) 1 tab PO DAILY dextroamphetamine-amphetamine 30 mg tablet 1 tab PO BID mirtazapine 30 mg tablet 1 tab PO BEDTIME montelukast 10 mg tablet 1 tab PO QPM gabapentin 100 mg capsule 1 cap PO BEDTIME insulin lispro 100 unit/mL insulin pen 20 unit subcut TID Levemir FlexTouch U100 Insulin 100 unit/mL (3 mL) insulin pen 30 unit subcut BEDTIME valsartan-hydrochlorothiazide 320-25 mg tablet 1 tab PO DAILY fluticasone propionate 50 mcg/actuation spray,suspension 1 - 2 spray intranasal QAM aspirin 81 mg tablet,delayed release (DR/EC) 81 mg PO DAILY atorvastatin 10 mg tablet 10 mg PO QAM bupropion HCl 100 mg tablet sustained-release 12 hr 100 mg PO QAM cetirizine 10 mg tablet 10 mg PO QAM clopidogrel 75 mg tablet 75 mg PO QAM albuterol sulfate [Ventolin HFA] 90 mcg/actuation HFA aerosol inhaler 2 puff inhalation Q4H PRN (Reason: wheezing) metformin 500 mg tablet 500 mg PO QAM clonidine HCl 0.1 mg tablet 0.1 mg PO BEDTIME PRN fluticasone propion-salmeterol [Advair Diskus] 250-50 mcg/dose blister with device 1 ea inhalation BID Interventions: ED Discharge Assessment Last Done: 07/16/23 16:31 Discharge Date/Time: 07/16/23 16:31
[2023-07-16 14:48] LABS: MANUAL DIFF FLAG NO
[2023-07-16 15:00] LABS: Basophils Absolute Auto 0.1 X10*3/uL (0.0-0.2); Basophils Percent Auto 0.5 % (0-2); Eosinophils Absolute Auto 0.3 X10*3/uL (0.0-0.4); Hematocrit 41.8 % (37.0-47.0); Hemoglobin 13.8 g/dl (12.0-16.0); Imm Gran Abs Auto 0.04 X10*3/uL (0.00-0.03); Imm Gran Pct Auto 0.4 % (0.0-0.4); Lymphocytes Absolute Auto 3.2 X10*3/uL (1.2-4.9); Lymphocytes Percent Auto 30.2 % (20-40); Mean Corpuscular Hemoglobin 27.5 pg (27.0-33.0); Mean Corpuscular Volume 83.3 fL (80.0-98.0); Mean Platelet Volume 9.8 fL (9.4-12.3); Monocytes Absolute Auto 0.7 X10*3/uL (0.1-1.2); Monocytes Percent Auto 6.4 % (2-11); Neutrophils Absolute Auto 6.3 x10*3/uL (2.0-8.3); Neutrophils Percent Auto 59.5 % (45-73); Platelet Count 355 X10*3/uL (160-400); Red Blood Count 5.02 X10*6/uL (4.20-5.50); Red Cell Distribution Width 12.6 % (11.0-16.0); White Blood Count 10.6 X10*3/uL (4.8-10.8)
[2023-07-16 15:12] LABS: Alanine Aminotransferase 30 U/L (0-31); Albumin Level 4.4 g/dL (3.5-5.0); Alkaline Phosphatase 121 U/L (39-117); Anion Gap 10 (12-20); Aspartate Amino Transferase 24 U/L (5-31); Bilirubin Total 0.4 mg/dL (0.0-1.0); Blood Urea Nitrogen 6 mg/dL (9-16); Calcium 9.9 mg/dL (8.4-10.2); Carbon Dioxide 28 mmol/L (22-29); Chloride 107 mmol/L (96-108); Creatinine Clr Calc Pharmacy 98.4; Estimated Glomerular Filt Rate > 60; Glucose Random 153 mg/dL (60-115); Magnesium 1.8 mg/dL (1.6-2.6); Potassium 3.6 mmol/L (3.3-5.1); Sodium 141 mmol/L (135-145); Total Protein 7.2 g/dL (6.5-8.0)
[2023-07-16 15:27] LABS: Influenza A PCR NEGATIVE (Negative); Influenza B PCR NEGATIVE (Negative); Resp Syncy Virus RNA Qual PCR NEGATIVE (Negative); SARS COV2 PCR INHOUSE NEGATIVE (Negative)
== END 2023-07-16 16:31 | disposition home or self-care (01) ==
PROVIDERS: Physician Assistant; Emergency Provider Emergency Medicine; PCP Student in an Organized Health Care Education/Training Program
DX: J32.9 Chronic sinusitis, unspecified (principal); Z20.822 Contact with and (suspected) exposure to COVID-19; Z20.828 Contact with and (suspected) exposure to other viral communicable diseases; Z79.899 Other long term (current) drug therapy
CPT/HCPCS: 0241U; 80053; 83735; 85025; 99282; 99283

== ENCOUNTER 2023-07-22 08:40 | Outpatient (REF) | payer MEDICAID, SELFPAY ==
[2023-07-22 12:06] LABS: Estimated Average Glucose 163 mg/dL; Hemoglobin A1c % 7.3 % (<6.0)
[2023-07-22 12:17] LABS: Alanine Aminotransferase 30 U/L (0-31); Albumin Level 4.4 g/dL (3.5-5.0); Alkaline Phosphatase 124 U/L (39-117); Anion Gap 13 (12-20); Aspartate Amino Transferase 30 U/L (5-31); Bilirubin Total 0.8 mg/dL (0.0-1.0); Blood Urea Nitrogen 7 mg/dL (9-16); Calcium 10.4 mg/dL (8.4-10.2); Carbon Dioxide 28 mmol/L (22-29); Chloride 103 mmol/L (96-108); Cholesterol 137 mg/dL (<200); Estimated Glomerular Filt Rate > 60; Glucose Random 168 mg/dL (60-115); HDL Cholesterol 33 mg/dL (>40); LDL Cholesterol Calculated 57 mg/dL (<100); Potassium 3.4 mmol/L (3.3-5.1); Sodium 141 mmol/L (135-145); Total Protein 7.3 g/dL (6.5-8.0); Triglycerides 238 mg/dL (<150)
[2023-07-22 12:24] LABS: HBS Num1 0.95 mIU/mL (0-7.99); HBc Num1 0.12 S/CO (0.00-0.79); HBsAGNum1 0.29 S/CO (0.00-0.99); Hepatitis B Core Antibody Nonreactive (Nonreactive); Hepatitis B Surface Antigen Negative (Negative); Syphilis Screen Nonreactive (Nonreactive); ~Hepatitis B Surface Antibody NONREACTIVE (Nonreactive)
[2023-07-22 12:30] LABS: Creatinine Urine 241.13 mg/dL; Microalbum/Creatinine Ratio Ur 8.2 ug/mg cr (<30)
[2023-07-22 12:33] LABS: Folate 13.7 ng/mL (> or = 4.0); Vitamin B12 480 pg/mL (200-900)
[2023-07-27 00:54] LABS: VITAMIN D (1,25 OH) D3 52 pg/mL; Vit D (1,25-Dihydroxy) Total 52 pg/mL (18-72); Vitamin D (1,25 OH) D2 <8 pg/mL
== END 2023-07-22 08:41 | disposition home or self-care (01) ==
LOC: HO.HHCL 08:40
PROVIDERS: Visit Provider Student in an Organized Health Care Education/Training Program
DX: Z00.00 Encounter for general adult medical examination without abnormal findings (principal); E11.69 Type 2 diabetes mellitus with other specified complication; Z79.4 Long term (current) use of insulin; Z80.9 Family history of malignant neoplasm, unspecified; Z11.3 Encounter for screening for infections with a predominantly sexual mode of transmission
CPT/HCPCS: 80053; 80061; 81162; 82043; 82570; 82607; 82652; 82746; 83036; 86704; 86706; 86780; 87340

== ENCOUNTER 2023-08-06 13:42 | Outpatient (REF) | payer MEDICAID, SELFPAY ==
--- NOTE | ~2023-08-06 | US_ITS ---
EXAMINATION: US RETROPERITONEAL LIMITED (RENAL ONLY) CLINICAL INFORMATION: History of nephrolithiasis. COMPARISON: CT abdomen and pelvis 10/19/2022. TECHNIQUE: Real-time imaging of the kidneys. FINDINGS: RIGHT KIDNEY: 12.1 x 7.3 x 6.1 cm (SAG x AP x TRV). The kidney is normal in size, contour, and echogenicity. Renal cortical thickness is normal. No hydronephrosis. 1.9 cm simple cyst in the upper pole. No follow-up imaging is recommended. 0.7 cm nonobstructing calculus in the lower pole. LEFT KIDNEY: 11.3 x 6.1 x 6.3 cm (SAG x AP x TRV). The kidney is normal in size, contour, and echogenicity. Renal cortical thickness is normal. No renal calculi or hydronephrosis. 1.4 cm simple cyst in the mid kidney. 1.0 cm simple cyst in the upper pole. No follow-up imaging is recommended. US/US renal BI IMPRESSION: 7 mm nonobstructing calculus in the lower right kidney. No hydronephrosis.
== END 2023-08-06 13:43 | disposition home or self-care (01) ==
LOC: HO.US 13:42
PROVIDERS: PCP Student in an Organized Health Care Education/Training Program; Visit Provider Student in an Organized Health Care Education/Training Program
DX: N20.0 Calculus of kidney (principal)
CPT/HCPCS: 76775

== ENCOUNTER 2023-08-06 18:40 | Emergency (ER) | payer MEDICAID, SELFPAY ==
--- NOTE | ~2023-08-06 | CT_ITS ---
EXAMINATION: CT ABDOMEN AND PELVIS WITHOUT CONTRAST CLINICAL INFORMATION: Flank pain COMPARISON: None available. TECHNIQUE: Multidetector volumetric imaging was performed from the superior aspect of the liver through the pubic symphysis. Sagittal and coronal reformatted images were obtained on the technologist's workstation. This CT examination was performed using dose optimization techniques as appropriate, variously including the following: *Automated exposure control *Adjustment of mA and/or kV according to patient size (this includes techniques or standardized protocols for targeted exams where dose is matched to indication/reason for exam; i.e. extremities or head) *Use of iterative reconstruction technique DLP: 657 mGy-cm FINDINGS: LUNG BASES: The visualized lung bases are unremarkable. Calcified granulomas seen at the left lung base. LIVER, GALLBLADDER, AND BILIARY TREE: The liver is enlarged measuring 20 cm in greatest length and demonstrates decreased attenuation consistent with hepatic steatosis. No focal hepatic lesion or biliary ductal dilatation is present. Status post cholecystectomy. PANCREAS: Unremarkable. SPLEEN: Unremarkable. ADRENAL GLANDS: Unremarkable. KIDNEYS AND URETERS: The kidneys are normal in size, shape, and attenuation. 2 punctate 1 to 2 mm calculi seen in the right kidney (4:229 and 302). 3 punctate calculi seen in the left kidney which may even be vascular (4:209 and 214). No hydronephrosis, hydroureter, or ureteral calculi seen. No perinephric stranding. Multiple benign Bosniak class I renal cysts are noted, the largest in the right upper pole measuring 1.4 cm which require no additional imaging or follow-up. No solid renal masses are seen. BLADDER: Unremarkable. GASTROINTESTINAL TRACT: The small and large bowel are unremarkable. Surgical clips are present in the right lower quadrant. The appendix is not seen. ABDOMINAL WALL: No significant hernia is appreciated. There is diastases of the rectus muscles above the umbilicus. A spinal stimulator is present in the left buttock with leads extending into the epidural space. LYMPH NODES: No retroperitoneal lymphadenopathy. VASCULAR: Unremarkable. PELVIC VISCERA: There is a bulky anteverted uterus present with lobulation consistent with fibroids. OSSEOUS STRUCTURES: There is degenerative changes from L3 through S1. There is posterior fixation with pedicular screws at L4, L5 and S1. Sclerotic changes seen in the right iliac bone adjacent to the SI joint. No interval change when compared to prior. CT/CT abdomen pelvis wo IV con IMPRESSION: 1. A cause for the patient's flank pain has not been found. 2. Enlarged fatty liver. 3. Cholecystectomy. 4. Bilateral punctate nonobstructing renal calculi. 5. Fibroid uterus. 6. Degenerative changes in the spine with posterior fixation L4-S1 and spinal stimulator. Fleischner guidelines were followed.
[2023-08-06 19:07] VITALS: BP 145/73; PULSE 90; RESP 16; TEMP 36.6; O2SAT 99; BMI 27.4
--- NOTE | 2023-08-06 19:07 | ED_ITS ---
HPI - General Adult General Chief complaint: Abdominal Pain Stated complaint: Pain in right lower back Time Seen by Provider: 08/06/23 23:03 Source: patient Mode of arrival: ambulatory Limitations: no limitations History of Present Illness HPI narrative: Patient is a 52 old female who presents emergency department for evaluation of bilateral flank pain right worse than left. She endorses associated dysuria, hematuria, nausea but no vomiting. Symptoms feel consistent with prior kidney stones, last experienced approximately 4 years ago when she was living in [place]. Does not have a local urologist. She contacted her primary care provider today who obtained an outpatient ultrasound but she has yet to receive the results of this examination. Denies fevers, chills, chest pain, shortness of breath, abdominal pain. Related Data Home Medications Medication Instructions Recorded Confirmed amlodipine 5 mg tablet 1 tab PO DAILY 10/20/22 10/20/22 dextroamphetamine-amphetamine 30 1 tab PO BID 10/20/22 10/20/22 mg tablet gabapentin 100 mg capsule 1 cap PO BEDTIME 10/20/22 10/20/22 insulin detemir U-100 100 unit/mL 30 unit subcut BEDTIME 10/20/22 10/20/22 (3 mL) subcutaneous pen (Levemir FlexTouch U-100 Insulin) insulin lispro 100 unit/mL 20 unit subcut TID 10/20/22 10/20/22 subcutaneous pen mirtazapine 30 mg tablet 1 tab PO BEDTIME 10/20/22 10/20/22 montelukast 10 mg tablet 1 tab PO QPM 10/20/22 10/20/22 pantoprazole 20 mg tablet,delayed 1 tab PO DAILY 10/20/22 10/20/22 release potassium chloride 10 mEq 1 tab PO BID 10/20/22 10/20/22 tablet,extended release valsartan 320 1 tab PO DAILY 10/20/22 10/20/22 mg-hydrochlorothiazide 25 mg tablet albuterol sulfate 90 mcg/actuation 2 puff inhalation Q4H PRN wheezing 05/06/23 aerosol inhaler (Ventolin HFA) aspirin 81 mg tablet,delayed 81 mg PO DAILY 05/06/23 release atorvastatin 10 mg tablet 10 mg PO QAM 05/06/23 bupropion HCl 100 mg tablet,12 hr 100 mg PO QAM 05/06/23 sustained-release cetirizine 10 mg tablet 10 mg PO QAM 05/06/23 clonidine HCl 0.1 mg tablet 0.1 mg PO BEDTIME PRN 05/06/23 clopidogrel 75 mg tablet 75 mg PO QAM 05/06/23 fluticasone 250 mcg-salmeterol 50 1 ea inhalation BID 05/06/23 mcg/dose blistr powdr for inhalation (Advair Diskus) fluticasone propionate 50 1 - 2 spray intranasal QAM 05/06/23 mcg/actuation nasal spray,suspension metformin 500 mg tablet 500 mg PO QAM 05/06/23 Previous Rx's Medication Instructions Recorded doxycycline hyclate 100 mg tablet 100 mg PO BID 5 days #10 tabs 07/16/23 cefuroxime axetil 500 mg tablet 500 mg PO BID #13 tabs 08/07/23 Allergies Allergy/AdvReac Type Severity Reaction Status Date / Time Iodinated Contrast Media Allergy Unknown HIVES Verified 07/16/23 13:57 [IV DYE, IODINE CONTAINING] Review of Systems 2 Review of Systems: Yes all other systems are reviewed and are negative [facility] Past Medical History Attestation statement: The following information was validated with the patient. Source: old records reviewed Medical History Mild acid reflux Raynauds disease Insulin dependent type 2 diabetes mellitus Peripheral neuropathy Non-insulin dependent type 2 diabetes mellitus Hypertension Surgical History Amputated left leg Social History Social History (Updated 05/06/23 @ 14:21 by Rebeca Callaway) Patient Tobacco Use Status: Former Tobacco user Quit Date: 2006 Advance Directives: No Advance Directives Information Provided: No service: No Current occupational status: disabled Physical Exam ED Vital Signs: Vital Signs - 24 hr 08/06/23 19:07 08/06/23 23:32 Temperature 98 F 98.0 F Pulse Rate 90 73 Respiratory Rate 16 18 Blood Pressure 145/73 H 126/66 Pulse Oximetry 99 93 Oxygen Delivery Method Room Air Room Air BMI result Body Mass Index 27.4 Appearance: Alert.?Oriented to person, place and time. No acute distress.?Normal affect. Eyes: Pupils equal, round and reactive to light.? ENT: Pharynx normal.?? Neck: Normal inspection.? Neck supple.?? CVS: Heart sounds normal. Normal heart rate and rhythm.? Pulses normal.?? Respiratory: No respiratory distress.? Lung sounds clear to auscultation bilaterally?? Abdomen: Soft and non-tender. Normoactive bowel sounds. Bilateral CVA tenderness upon palpation?? Skin: Skin warm and dry.? Normal skin color.? Extremities: No lower extremity edema.? Neuro: Moves all extremities spontaneously. Sensation intact bilaterally. Course Course Course Narrative: This is an RME: Additional HPI, ROS, PE not included below will be deferred to primary provider. 52 y o female presenting for evaluation of R flank pain x 2 days. Reports associated difficulty urinating, stating that when she urinates not a lot comes out. Denies fevers, chills, chest pain, shortness of breath, numbness or tingling. No trauma Plan -- labs, UA Reevaluation(s) Reevaluation #1: CT without identifiable etiology for pain, fatty liver, bilateral nonobstructing punctate calculi, degenerative changes of the use spine with fixation and spinal stimulator as noted. It is possible that her pain may be attributed to her chronic back pain, although she does state that this feels atypical for her pain versus renal colic with recently passed stone given reported hematuria and dysuria. Patient has not yet provided urine sample, will obtain to assess for urinary infection. Time: 01:01 Reevaluation #2: Urinalysis with hematuria and moderate leukocyte esterase among patient received initial dosing of antibiotic while in the emergency department. Prescription was sent to pharmacy. Reviewed worrisome signs and symptoms that would warrant re-evaluation in the emergency department. All questions answered. Stable for discharge and outpatient follow-up with PCP. Time: 01:37 Medications Administered Discontinued Medications Generic Name Dose Route Start Last Admin Trade Name Freq PRN Reason Stop Dose Admin Sodium Chloride 1,000 mls @ 999 mls/hr 08/06/23 23:15 08/06/23 23:32 Ns IV 08/07/23 00:15 999 mls/hr .Q1H1M RACIEL Administration Morphine Sulfate 2 mg 08/06/23 23:11 08/06/23 23:31 Morphine Sulfate 2 Mg/Ml Cartridge IVPUSH 08/06/23 23:12 2 mg ONCE ONE Administration Protocol Ondansetron HCl 4 mg 08/06/23 23:10 08/06/23 23:31 Ondansetron Hcl 4 Mg/2 Ml Vial IVPUSH 08/06/23 23:11 4 mg ONCE ONE Administration Medical Decision Making Medical Decision Making [facility] Narrative: Patient is a 52-year-old female with past medical history of renal calculi, hypertension, insulin-dependent diabetes with peripheral neuropathy, left [id number] amputation secondary to Raynaud disease presenting to emergency department for evaluation of flank pain as per HPI. Abdominal examination is benign. She does have bilateral CVA tenderness. Will obtain CBC to evaluate for leukocytosis/ anemia, CMP and lipase to evaluate for abnormal electrolytes /abnormal renal function/ abnormal hepatic/biliary function, CT of the abdomen and pelvis and Urinalysis. Patient received 1 L normal saline IV fluid, Zofran IV for nausea, morphine IV for pain. Differential Diagnosis Differential Diagnoses: The differential diagnosis associated with the presentation includes (Obstructive ureteral calculi, renal colic, hydronephrosis, pyelonephritis, urinary tract infection, less likely diverticulitis/ appendicitis/ colitis/ bowel obstruction) Admission/Observation Consideration of admission/observation: Escalation of care including admission/observation considered (I considered admission for abdominal pain, see course narrative for further detail) Lab Data [facility] Lab Attestation statement: I reviewed the patient's lab results. CBC revealing a mild leukocytosis, no anemia. CMP is overall unremarkable. Mild elevation of ALT and alk phos consistent with prior labs. 08/06/23 19:53 08/06/23 19:53 Labs: Lab Results 08/06/23 08/07/23 Range/Units 19:53 01:27 WBC 13.8 H (4.8-10.8) X10*3/uL RBC 5.01 (4.20-5.50) X10*6/uL Hgb 13.7 (12.0-16.0) g/dl Hct 42.0 (37.0-47.0) % MCV 83.8 (80.0-98.0) fL MCH 27.3 (27.0-33.0) pg MCHC 32.6 (31.0-35.0) g/dl RDW 12.9 (11.0-16.0) % Plt Count 370 (160-400) X10*3/uL MPV 10.2 (9.4-12.3) fL Immature Gran % (Auto) 0.3 (0.0-0.4) % Neut % (Auto) 60.9 (45-73) % Lymph % (Auto) 29.3 (20-40) % Lynn % (Auto) 7.5 (2-11) % Eos % (Auto) 1.6 (0-4) % Baso % (Auto) 0.4 (0-2) % Lymph # (Auto) 4.1 (1.2-4.9) X10*3/uL Lynn # (Auto) 1.0 (0.1-1.2) X10*3/uL Eos # (Auto) 0.2 (0.0-0.4) X10*3/uL Baso # (Auto) 0.1 (0.0-0.2) X10*3/uL Abs Immat Gran (auto) 0.04 H (0.00-0.03) X10*3/uL Absolute Neuts (auto) 8.4 H (2.0-8.3) x10*3/uL Absolute Nucleated RBC 0.000 (0.0-0.012) X10*3/uL Nucleated RBC % (auto) 0.0 (0.0-0.2) /100WBC Sodium 139 (135-145) mmol/L Potassium 3.8 (3.3-5.1) mmol/L Chloride 104 (96-108) mmol/L Carbon Dioxide 28 (22-29) mmol/L Anion Gap 11 L (12-20) BUN 10 (9-16) mg/dL Creatinine 0.73 (0.5-1.4) mg/dL Estim Creat Clear Calc 98.7 Estimated GFR > 60 Random Glucose 126 H (60-115) mg/dL Calcium 10.2 (8.4-10.2) mg/dL Total Bilirubin 0.5 (0.0-1.0) mg/dL AST 27 (5-31) U/L ALT 34 H (0-31) U/L Alkaline Phosphatase 139 H (39-117) U/L Total Protein 7.5 (6.5-8.0) g/dL Albumin 4.5 (3.5-5.0) g/dL Lipase 22 (8-78) U/L Urine Color Yellow Urine Appearance Turbid Urine pH 6.5 (5.0-9.0) Ur Specific [place] 1.025 (1.005-1.025) Urine Protein Trace (Neg-Trace) mg/dL Urine Glucose (UA) >=1000 H (Negative) mg/dL Urine Ketones Negative (Negative) mg/dL Urine Blood Moderate (2+) H (Negative) Urine Nitrite Negative (Negative) Ur Leukocyte Esterase Moderate (2+) H (Negative) Urine RBC 11-20 H (0-2) /HPF Urine WBC >50 H (0-5) /HPF Ur Squamous Epith Cells 6-10 (0-2) /HPF Urine Bacteria 4+ (None Seen) Hyaline Casts 0-2 (0-2) /LPF Radiology Impression Discussion of test interpretation with radiology: I have reviewed the radiologist's reading. Radiologist Impression: CT/CT abdomen pelvis wo IV con IMPRESSION: 1. A cause for the patient's flank pain has not been found. 2. Enlarged fatty liver. 3. Cholecystectomy. 4. Bilateral punctate nonobstructing renal calculi. 5. Fibroid uterus. 6. Degenerative changes in the spine with posterior fixation L4-S1 and spinal stimulator. Prescription Management I considered prescription management with: Antibiotic Discharge Plan Discharge Clinical Impression: Urinary tract infection Patient Disposition: Home, Self-Care Instructions: Urinary Tract Infection in Women (ED) Prescriptions: New cefuroxime axetil 500 mg tablet 500 mg PO BID Qty: 13 0RF No Action potassium chloride 10 mEq tablet extended release 1 tab PO BID amlodipine 5 mg tablet 1 tab PO DAILY pantoprazole 20 mg tablet,delayed release (DR/EC) 1 tab PO DAILY dextroamphetamine-amphetamine 30 mg tablet 1 tab PO BID mirtazapine 30 mg tablet 1 tab PO BEDTIME montelukast 10 mg tablet 1 tab PO QPM gabapentin 100 mg capsule 1 cap PO BEDTIME insulin lispro 100 unit/mL insulin pen 20 unit subcut TID Levemir FlexTouch U100 Insulin 100 unit/mL (3 mL) insulin pen 30 unit subcut BEDTIME valsartan-hydrochlorothiazide 320-25 mg tablet 1 tab PO DAILY doxycycline hyclate 100 mg tablet 100 mg PO BID 5 Days Qty: 10 0RF fluticasone propionate 50 mcg/actuation spray,suspension 1 - 2 spray intranasal QAM aspirin 81 mg tablet,delayed release (DR/EC) 81 mg PO DAILY atorvastatin 10 mg tablet 10 mg PO QAM bupropion HCl 100 mg tablet sustained-release 12 hr 100 mg PO QAM cetirizine 10 mg tablet 10 mg PO QAM clopidogrel 75 mg tablet 75 mg PO QAM albuterol sulfate [Ventolin HFA] 90 mcg/actuation HFA aerosol inhaler 2 puff inhalation Q4H PRN (Reason: wheezing) metformin 500 mg tablet 500 mg PO QAM clonidine HCl 0.1 mg tablet 0.1 mg PO BEDTIME PRN fluticasone propion-salmeterol [Advair Diskus] 250-50 mcg/dose blister with device 1 ea inhalation BID Referrals: Mary Ellen Ortega MD [Primary Care Provider] -
[2023-08-06 20:01] LABS: MANUAL DIFF FLAG NO
[2023-08-06 20:17] LABS: Alanine Aminotransferase 34 U/L (0-31); Albumin Level 4.5 g/dL (3.5-5.0); Alkaline Phosphatase 139 U/L (39-117); Anion Gap 11 (12-20); Aspartate Amino Transferase 27 U/L (5-31); Basophils Absolute Auto 0.1 X10*3/uL (0.0-0.2); Basophils Percent Auto 0.4 % (0-2); Bilirubin Total 0.5 mg/dL (0.0-1.0); Blood Urea Nitrogen 10 mg/dL (9-16); Calcium 10.2 mg/dL (8.4-10.2); Carbon Dioxide 28 mmol/L (22-29); Chloride 104 mmol/L (96-108); Creatinine Clr Calc Pharmacy 98.7; Eosinophils Absolute Auto 0.2 X10*3/uL (0.0-0.4); Eosinophils Percent Auto 1.6 % (0-4); Estimated Glomerular Filt Rate > 60; Glucose Random 126 mg/dL (60-115); Hemoglobin 13.7 g/dl (12.0-16.0); Imm Gran Abs Auto 0.04 X10*3/uL (0.00-0.03); Imm Gran Pct Auto 0.3 % (0.0-0.4); Lymphocytes Absolute Auto 4.1 X10*3/uL (1.2-4.9); Lymphocytes Percent Auto 29.3 % (20-40); Mean Corpuscular HGB Conc 32.6 g/dl (31.0-35.0); Mean Corpuscular Hemoglobin 27.3 pg (27.0-33.0); Mean Corpuscular Volume 83.8 fL (80.0-98.0); Mean Platelet Volume 10.2 fL (9.4-12.3); Monocytes Percent Auto 7.5 % (2-11); Neutrophils Absolute Auto 8.4 x10*3/uL (2.0-8.3); Neutrophils Percent Auto 60.9 % (45-73); Platelet Count 370 X10*3/uL (160-400); Potassium 3.8 mmol/L (3.3-5.1); Red Blood Count 5.01 X10*6/uL (4.20-5.50); Red Cell Distribution Width 12.9 % (11.0-16.0); Sodium 139 mmol/L (135-145); Total Protein 7.5 g/dL (6.5-8.0); White Blood Count 13.8 X10*3/uL (4.8-10.8)
[2023-08-06] MEDS: ondansetron HCL 4 MG/2 ML VIAL IVPUSH (23:31)
[2023-08-06] MEDS: Morphine Sulfate 2 MG/ML CARTRIDGE IVPUSH (23:31)
[2023-08-06 23:32] VITALS: BP 126/66; PULSE 73; RESP 18; TEMP 36.7; O2SAT 93
[2023-08-06] MEDS: 0.9 % Sodium Chloride 1,000 ML 999 ML IV (23:32)
[2023-08-07 00:09] LABS: Lipase 22 U/L (8-78)
[2023-08-07 01:34] LABS: Appearance Urine Turbid; Color Urine Yellow; Glucose Urine UA >=1000 mg/dL (Negative); Leukocyte Esterase Urine Moderate (2+) (Negative); Nitrite Urine Negative (Negative); PH 6.5 (5.0-9.0); Specific Gravity - Urine 1.025 (1.005-1.025); UMIC TRIGGER UACC YES; Urine Blood Moderate (2+) (Negative); Urine Ketones Negative (Negative); Urine Protein Trace mg/dL (Neg-Trace)
[2023-08-07 01:42] LABS: Bacteria Urine 4+ (None Seen); Hyaline Casts Urine 0-2 /LPF (0-2); UACC Culture Trigger YES; WBC Urine >50 /HPF (0-5)
[2023-08-07 02:18] VITALS: BP 113/46; PULSE 72; RESP 16; TEMP 36.7; O2SAT 95
== END 2023-08-07 03:00 | disposition home or self-care (01) ==
PROVIDERS: Nurse Practitioner Family; Physician Assistant; Emergency Provider Emergency Medicine Emergency Medical Services; PCP Student in an Organized Health Care Education/Training Program
DX: N39.0 Urinary tract infection, site not specified (principal); R10.2 Pelvic and perineal pain; M54.50 Low back pain, unspecified; R30.0 Dysuria; R11.0 Nausea; Z79.899 Other long term (current) drug therapy
CPT/HCPCS: 36415; 74176; 80053; 81001; 83690; 85025; 87086; 87088; 87186; 96361; 96374; 96375; 99284; J2270; J2405

== ENCOUNTER 2023-08-08 14:07 | Outpatient (AMB) | payer MEDICAID, SELFPAY ==
--- NOTE | 2023-08-08 14:35 | A.OFFVIS_ITS ---
Intake Vital Signs 08/08/23 14:42 Height 5 ft 8 in Weight 179 lb BMI 27.2 BP 123/58 L Blood Pressure Location Rt brachial Position Sitting Pulse 78 Pulse Source Pulse Oximeter Pulse Oximetry (%) 97 Oxygen Delivery Method Room Air Intake Visit Reasons: Follow Up to Discuss Next Steps Intake Note: Pain today 06/20. Sample Prep Technician Required: No Accompanied by: Self / Same As Patient Allergies Iodinated Contrast Media [IV DYE, IODINE CONTAINING] Allergy (Unknown, Verified 08/08/23 14:43) HIVES HPI HPI Comments History of Present Illness Details Patient presents today for follow up for low back pain with radiation to right buttock and right lateral hip. She was previously seen in April and has pending lumbar spine MRI which has not completed yet. Per MRI department, they attempted several times to contact patient to schedule but were unable. We provided MRI contact information to patient today to schedule lumbar spine MRI. Patient was seen in [facility] 2 days ago for UTI and has started antibiotic yesterday. CT abd/pelvis was taken in ER and showed degenerative changes from L3 through S1. There is posterior fixation with pedicular screws at L4, L5 and S1. Sclerotic changes seen in the right iliac bone adjacent to the SI joint. Patient is interested to undergo diagnostic right SIJ injection as next steps to confirm her pain generator. Patient also continues to reports post laminectomy syndrome related pain with bilateral radicular leg pain with SCS device in place that has not been working since last July. Patient had SCS interrogation by Anthony from [employer] on 05/16/23,however report has not been submitted to us yet. PRIOR: Patient is a pleasant 52 years old female with prior history of lumbar fusion wi th hardware and prosthetic disc interspaces at L4-L5 and L5-S1 Dr. Matthias Townsend at [place], [place] (10/13/2003), [facility] [facility] SCS in place, left AKA (01/20/2007), right femoral to distal peroneal bypass (07/04/2007), debridement and skin grafting of RLE (08/22/07), chronic anticoagulation on Plavix and aspirin, COPD, HTN, GERD, depression (CHD, Ailey), diabetes (A1C-7.6 on 02/2023), peripheral neuropathy and Raynaud's disease, presents today for initial low back, neck and bilateral radicular leg pain. She presents today with request to replace her [employer] SCS battery. Patient reports her battery was not charged since last July due to multiple deaths in her family, including her , brother and sister in [place]. Patient reports she received multiple invitations to change her battery in [place] but has moved in [place] in January and has no plans to return to her original state as she reports remaining of her family is here. She arrived by wheelchair due to left AKA and is accompanied by her sister. Patient reports she lost her left leg due to Raynaud's and smoking in 2006. Patient reports back pain with bilateral radiation of pain to both legs anteriorly. Reports constant aching, hurting, tingling and stinging. Gabapentin tolerates 100 mg TID due to drowsiness. Also takes Tylenol with continued pain symptoms. She reports good pain relief when SCS device was in use. She also re ports left sided neck pain that has been more recently. Patient also reports concerns for bladder and bowel incontinence for 6 months and was going to have MRI and evaluation in [place] but has moved to [place]. Denies any fever, open wounds, rash, swelling, shortness of breaths, abdominal or groin pain, weakness, or saddle anesthesia. [facility] Medical History Mild acid reflux Raynauds disease Insulin dependent type 2 diabetes mellitus Peripheral neuropathy Non-insulin dependent type 2 diabetes mellitus Hypertension Surgical History Amputated left leg Social History Patient Tobacco Use Status: Former Tobacco user Quit Date: 2006 service: No Current occupational status: disabled Review of Systems Const All systems reviewed & are unremarkable except as noted in HPI and below Reports as per HPI, Denies body aches, Denies chills, Reports difficulty sleeping, Reports fatigue, Denies fever(s), Denies frequent falls, Denies malaise, Denies night sweats, Denies weakness and Denies weight loss Neuro Denies frequent falls and Denies weakness Endo Reports fatigue Physical Exam Vital Signs: Last Vital Signs Pulse 78 08/08/23 14:42 BP 123/58 L 08/08/23 14:42 Pulse Ox 97 08/08/23 14:42 Oxygen Delivery Method Room Air 08/08/23 14:42 BMI result Body Mass Index 27.2 General: Appears afebrile. No acute distress. Alert and oriented. Fully engaged with exam. Mood and affect appropriate. Pleasant. Follows and participates in conversation appropriately. Respiratory effort is unlabored. No cough. Able to transition from sit to stand on right leg without assistance. Transfers via wheelchair. Left AKA. Good upper extremity and RLE strength. Back/Spine/Pelvis Cervical Spine: cervical ROM normal, cervical muscular tenderness and No Cervical spine tenderness Thoracic/Lumbar Spine: thoracic and lumbar spine normal to inspection, Thoracic/lumbar spine scar(s), Lasegue's sign negative (Reports bilateral leg pain with tingling, numbness.) on the right and diffuse, pain with thoraco- lumbar ROM, paraspinal muscle tenderness, thoraco-lumbar ROM limited, No thoracic spinal tenderness and lumbar spinal tenderness at L4 and at L5 Pelvis: buttock tenderness on the right and no sciatic notch tenderness Sacroiliac joints: bilaterally (+Sincere's and Stinchfield reproduce LBP and lateral hip. ) tender to palpation Extrem Right lower extremity: full ROM, normal capillary refill and lower leg (multiple scars r/t peroneal bypass, debridement, skin grafting) Left lower extremity: knee (Left AKA) Results Reviewed Results Reviewed: CT ABDOMEN AND PELVIS WITHOUT CONTRAST 08/06/23 CLINICAL INFORMATION: Flank pain OSSEOUS STRUCTURES: There is degenerative changes from L3 through S1. There is posterior fixation with pedicular screws at L4, L5 and S1. Sclerotic changes seen in the right iliac bone adjacent to the SI joint. No interval change when compared to prior. IMPRESSION: 1. A cause for the patient's flank pain has not been found. 2. Enlarged fatty liver. 3. Cholecystectomy. 4. Bilateral punctate nonobstructing renal calculi. 5. Fibroid uterus. 6. Degenerative changes in the spine with posterior fixation L4-S1 and spinal stimulator. XR CERVICAL SPINE XR LUMBAR SPINE 05/06/23 CLINICAL INFORMATION: Spondylosis, back pain, patient unable to remove earring, neck pain. FINDINGS: CERVICAL SPINE: Straightening of the normal cervical lordosis. Visualization of C6 and C7 limited due to overlying soft tissues. Mild cervical spondylosis. Mild loss of disc space height at C5-C6. LUMBAR SPINE: Straightening of the normal lumbar lordosis. Lumbar vertebral body heights are preserved. Surgical clips right upper quadrant. Electronic pack overlies the posterior left lower abdomen with leads projecting above the upper limits of the film, along the posterior aspect of the thoracic spine. Atherosclerotic aortoiliac calcifications. Status post posterior fixation with vertical rods and transpedicular screws at L4-L5 and L5-S1. Interdisc spacer at L4-L5. Hardware appears intact. Multilevel lumbar spondylosis with moderate loss of disc space height at L3-L4. IMPRESSION: 1. Posterior fusion hardware at L4-L5 and L5-S1 with interdisc spacer at L4-L5. Hardware appears intact. 2. Multilevel lumbar spondylosis with moderate loss of disc space height at L3-L4. Assessment & Plan Assessment & Plan (1) Lumbar spondylosis: Code(s): M47.816 - Spondylosis without myelopathy or radiculopathy, lumbar region (2) Failed back syndrome of lumbar spine: Code(s): M96.1 - Postlaminectomy syndrome, not elsewhere classified (3) Lumbar radiculopathy: Code(s): M54.16 - Radiculopathy, lumbar region (4) Spinal cord stimulator status: Code(s): Z96.89 - Presence of other specified functional implants (5) Sacroiliac joint pain: Code(s): M53.3 - Sacrococcygeal disorders, not elsewhere classified Plan 1. Pending MRI of the lumbar spine to assess for neural integrity and compression. Reports bladder and bowel incontinence for several months and has history of kidney stones. She was recently evaluated in ER and started antibiotic for UTI. Also, awaiting report from Juan Antonio Cruz from recent SCS device interrogation for potential battery replacement. 2. For right sided low back and SIJ pain, we will proceed with Diagnostic Right SIJ injection with local and fluoroscopy. Expectations, risks and benefits were reviewed. Patient is aware she will be contacted to schedule this procedure. All questions were answered and the patient is in agreement of plan. Follow-up after injections and sooner as needed. Coding Level of Care Code Est Pt Level 4 (67037) Diagnoses Lumbar spondylosis M47.816 Failed back syndrome of lumbar spine M96.1 Lumbar radiculopathy M54.16 Spinal cord stimulator status Z96.89 Sacroiliac joint pain M53.3
[2023-08-08 14:42] VITALS: BP 123/58; PULSE 78; O2SAT 97; BMI 27.2
== END 2023-08-08 14:58 | disposition home or self-care (01) ==
PROVIDERS: PCP Student in an Organized Health Care Education/Training Program; Visit Provider Nurse Practitioner Family
DX: M47.816 Spondylosis without myelopathy or radiculopathy, lumbar region (principal); M96.1 Postlaminectomy syndrome, not elsewhere classified; M54.16 Radiculopathy, lumbar region; Z96.89 Presence of other specified functional implants; M53.3 Sacrococcygeal disorders, not elsewhere classified
CPT/HCPCS: 99214

== ENCOUNTER → 2023-08-08 14:07 | Outpatient (BNVA) | payer MEDICAID, SELFPAY | PROVIDERS: PCP Student in an Organized Health Care Education/Training Program; Visit Provider Nurse Practitioner Family | DX: M96.1 Postlaminectomy syndrome, not elsewhere classified (principal); M47.26 Other spondylosis with radiculopathy, lumbar region; M53.3 Sacrococcygeal disorders, not elsewhere classified; Z96.89 Presence of other specified functional implants | CPT/HCPCS: 99212 ==

== ENCOUNTER 2023-08-21 10:43 | Outpatient (REF) | payer MEDICAID, SELFPAY | END 2023-08-21 10:44 | disposition home or self-care (01) | LOC: HO.MAMMO 10:43 | PROVIDERS: PCP Student in an Organized Health Care Education/Training Program; Visit Provider Student in an Organized Health Care Education/Training Program | DX: R92.1 Mammographic calcification found on diagnostic imaging of breast (principal) | CPT/HCPCS: 77065 ==

== ENCOUNTER → 2023-08-21 11:00 | Outpatient (BNV) | payer MEDICAID, SELFPAY | PROVIDERS: PCP Student in an Organized Health Care Education/Training Program; Visit Provider Radiology Diagnostic Radiology | DX: R92.1 Mammographic calcification found on diagnostic imaging of breast (principal) | CPT/HCPCS: 77065 ==

== ENCOUNTER 2023-08-29 10:25 | Day surgery (SDC) | payer MEDICAID, SELFPAY ==
[2023-08-27 08:21] VITALS: BMI 27.2
--- NOTE | 2023-08-28 10:01 | HO.ANESPROP2 ---
Documented by User: Ileana Cristina NP 08/28/23 10:16 HPI - Anesthesia Eval Consult details Narrative: 52yo F for Spinal Stimulation Generator Change (poss Lead Replacement) Plavix for PAD/Raynauds s/p Left AKA PMFSH Active Problems Active Problems: All Active Problems (Updated 10/20/22 @ 00:37 by Diane Peters MD) Sacroiliac joint pain (Acute) Spinal cord stimulator status (Acute) Lumbar radiculopathy (Acute) Failed back syndrome of lumbar spine (Acute) Lumbar spondylosis (Acute) Amputated left leg (Acute) Past Medical History Medical History PAD (peripheral artery disease) Mild acid reflux Raynauds disease Insulin dependent type 2 diabetes mellitus Peripheral neuropathy Non-insulin dependent type 2 diabetes mellitus Hypertension Surgical History Surgical History Amputated left leg Social History Social History Patient Tobacco Use Status: Former Tobacco user Quit Date: 2006 Have you been hit, kicked, punched, or otherwise hurt by someone within the past year? If so, by whom?: No Are you DNR?: No Advance Directives: No Advance Directives Information Provided: Yes Recently lost weight without trying: No Eating poorly because of decreased appetite: No Nutrition Risks: No Nutritional Risk Patient : No service: No Current occupational status: disabled Meds Allergies Allergy/AdvReac Type Severity Reaction Status Date / Time Iodinated Contrast Media Allergy Unknown HIVES Verified 08/08/23 14:43 [IV DYE, IODINE CONTAINING] Home Medications Medication Instructions Recorded Confirmed Last Taken Type amlodipine 5 mg tablet 1 tab PO DAILY 10/20/22 10/20/22 10/18/22 History dextroamphetamine-amphetamine 30 1 tab PO BID 10/20/22 10/20/22 10/18/22 History mg tablet gabapentin 100 mg capsule 1 cap PO BEDTIME 10/20/22 10/20/22 10/18/22 History insulin detemir U-100 100 unit/mL 30 unit subcut BEDTIME 10/20/22 10/20/22 10/18/22 History (3 mL) subcutaneous pen (Levemir FlexTouch U-100 Insulin) insulin lispro 100 unit/mL 20 unit subcut TID 10/20/22 10/20/22 10/18/22 History subcutaneous pen mirtazapine 30 mg tablet 1 tab PO BEDTIME 10/20/22 10/20/22 10/18/22 History montelukast 10 mg tablet 1 tab PO QPM 10/20/22 10/20/22 10/18/22 History pantoprazole 20 mg tablet,delayed 1 tab PO DAILY 10/20/22 10/20/22 10/18/22 History release potassium chloride 10 mEq 1 tab PO BID 10/20/22 10/20/22 10/18/22 History tablet,extended release valsartan 320 1 tab PO DAILY 10/20/22 10/20/22 10/18/22 History mg-hydrochlorothiazide 25 mg tablet albuterol sulfate 90 mcg/actuation 2 puff inhalation Q4H PRN wheezing 05/06/23 Unknown History aerosol inhaler (Ventolin HFA) aspirin 81 mg tablet,delayed 81 mg PO DAILY 05/06/23 Unknown History release atorvastatin 10 mg tablet 10 mg PO QAM 05/06/23 Unknown History bupropion HCl 100 mg tablet,12 hr 100 mg PO QAM 05/06/23 Unknown History sustained-release cetirizine 10 mg tablet 10 mg PO QAM 05/06/23 Unknown History clonidine HCl 0.1 mg tablet 0.1 mg PO BEDTIME PRN 05/06/23 Unknown History clopidogrel 75 mg tablet 75 mg PO QAM 05/06/23 Unknown History fluticasone 250 mcg-salmeterol 50 1 ea inhalation BID 05/06/23 Unknown History mcg/dose blistr powdr for inhalation (Advair Diskus) fluticasone propionate 50 1 - 2 spray intranasal QAM 05/06/23 Unknown History mcg/actuation nasal spray,suspension metformin 500 mg tablet 500 mg PO QAM 05/06/23 Unknown History albuterol sulfate 2.5 mg/3 mL mg inhalation Q6H PRN wheezing 08/08/23 Unknown History (0.083 %) solution for nebulization atorvastatin 20 mg tablet 20 mg PO QAM 08/08/23 Unknown History dapagliflozin propanediol 10 mg 10 mg PO QAM 08/08/23 Unknown History tablet (Farxiga) dextroamphetamine-amphetamine ER 1 cap PO QAM 08/08/23 Unknown History 20 mg 24hr capsule,extend release (Adderall XR) Exam Exam Date and Time: August 28, 2023 1001 Height,Weight and Vital Signs: Height 5 ft 8 in Weight 81.193 kg Pertinent Lab Results Pertinent Lab Results: Laboratory Tests 08/06/23 19:53 WBC 13.8 H Hgb 13.7 Hct 42.0 Plt Count 370 Sodium 139 Potassium 3.8 Chloride 104 Carbon Dioxide 28 BUN 10 Creatinine 0.73 Assessment and Plan Assessment Anesthesia Assessment: Chart Reviewed Documented by User: Sandhya Arellano MD 08/29/23 13:52 PMFSH Active Problems Active Problems: All Active Problems (Updated 10/20/22 @ 00:37 by Diane Peters MD) Sacroiliac joint pain (Acute) Spinal cord stimulator status (Acute) Lumbar radiculopathy (Acute) Failed back syndrome of lumbar spine (Acute) Lumbar spondylosis (Acute) Amputated left leg (Acute) ALBERTINA Hyperactive airways Hypercholesterolaemia Anxiety/Depression GERD Past Medical History Medical History PAD (peripheral artery disease) Mild acid reflux Raynauds disease Insulin dependent type 2 diabetes mellitus Peripheral neuropathy Non-insulin dependent type 2 diabetes mellitus Hypertension Family History Family history of problems with anesthesia: No Surgical History Surgical History Amputated left leg History of Problems with Anesthesia: No Social History Social History Patient Tobacco Use Status: Former Tobacco user Quit Date: 2006 Have you been hit, kicked, punched, or otherwise hurt by someone within the past year? If so, by whom?: No Are you DNR?: No Advance Directives: No Advance Directives Information Provided: Yes Recently lost weight without trying: No Eating poorly because of decreased appetite: No Nutrition Risks: No Nutritional Risk Patient : No service: No Current occupational status: disabled Meds Allergies Allergy/AdvReac Type Severity Reaction Status Date / Time Iodinated Contrast Media Allergy Unknown HIVES Verified 08/08/23 14:43 [IV DYE, IODINE CONTAINING] Home Medications Medication Instructions Recorded Confirmed Last Taken Type amlodipine 5 mg tablet 1 tab PO DAILY 10/20/22 10/20/22 10/18/22 History dextroamphetamine-amphetamine 30 1 tab PO BID 10/20/22 10/20/22 10/18/22 History mg tablet gabapentin 100 mg capsule 1 cap PO BEDTIME 10/20/22 10/20/22 10/18/22 History insulin detemir U-100 100 unit/mL 30 unit subcut BEDTIME 10/20/22 10/20/22 10/18/22 History (3 mL) subcutaneous pen (Levemir FlexTouch U-100 Insulin) insulin lispro 100 unit/mL 20 unit subcut TID 10/20/22 10/20/22 10/18/22 History subcutaneous pen mirtazapine 30 mg tablet 1 tab PO BEDTIME 10/20/22 10/20/22 10/18/22 History montelukast 10 mg tablet 1 tab PO QPM 10/20/22 10/20/22 10/18/22 History pantoprazole 20 mg tablet,delayed 1 tab PO DAILY 10/20/22 10/20/22 10/18/22 History release potassium chloride 10 mEq 1 tab PO BID 10/20/22 10/20/22 10/18/22 History tablet,extended release valsartan 320 1 tab PO DAILY 10/20/22 10/20/22 10/18/22 History mg-hydrochlorothiazide 25 mg tablet albuterol sulfate 90 mcg/actuation 2 puff inhalation Q4H PRN wheezing 05/06/23 Unknown History aerosol inhaler (Ventolin HFA) aspirin 81 mg tablet,delayed 81 mg PO DAILY 05/06/23 Unknown History release atorvastatin 10 mg tablet 10 mg PO QAM 05/06/23 Unknown History bupropion HCl 100 mg tablet,12 hr 100 mg PO QAM 05/06/23 Unknown History sustained-release cetirizine 10 mg tablet 10 mg PO QAM 05/06/23 Unknown History clonidine HCl 0.1 mg tablet 0.1 mg PO BEDTIME PRN 05/06/23 Unknown History clopidogrel 75 mg tablet 75 mg PO QAM 05/06/23 Unknown History fluticasone 250 mcg-salmeterol 50 1 ea inhalation BID 05/06/23 Unknown History mcg/dose blistr powdr for inhalation (Advair Diskus) fluticasone propionate 50 1 - 2 spray intranasal QAM 05/06/23 Unknown History mcg/actuation nasal spray,suspension metformin 500 mg tablet 500 mg PO QAM 05/06/23 Unknown History albuterol sulfate 2.5 mg/3 mL mg inhalation Q6H PRN wheezing 08/08/23 Unknown History (0.083 %) solution for nebulization atorvastatin 20 mg tablet 20 mg PO QAM 08/08/23 Unknown History dapagliflozin propanediol 10 mg 10 mg PO QAM 08/08/23 Unknown History tablet (Farxiga) dextroamphetamine-amphetamine ER 1 cap PO QA 08/08/23 Unknown History 20 mg 24hr capsule,extend release (Adderall XR) Exam Height,Weight and Vital Signs: Height 5 ft 8 in Weight 81.193 kg Temp Pulse Resp BP Pulse Ox O2 Del Method 97.3 F 77 18 113/62 96 Room Air 08/29/23 12:24 08/29/23 12:24 08/29/23 12:24 08/29/23 12:24 08/29/23 12:24 08/29/23 12:24 Pertinent Lab Results Pertinent Lab Results: Laboratory Tests 08/06/23 19:53 WBC 13.8 H Hgb 13.7 Hct 42.0 Plt Count 370 Sodium 139 Potassium 3.8 Chloride 104 Carbon Dioxide 28 BUN 10 Creatinine 0.73 Lab Results 08/29/23 Range/Units 12:10 POC Glucose 86 (60-115) mg/dL Received 100ml of D5W Airway Mallampati Class: II TM Dist: >3cm Neck ROM: Full Denture: Upper Partial: Lower Loose/Missing/Broken Teeth: Yes (Not wearing top dentures.Bottom partial- few teeth broken) Heart: RRR Lungs: CTAB Assessment and Plan Assessment Anesthesia Assessment: Anesthesia Plan Discussed Final Anesthetic Review Family History of Problems with Anesthesia: No History of Problems with Anesthesia: No NPO: Yes ASA Class: III Final Preanesthetic Review: No Changes in Pt Med Stat, Meds/Allgs Chart Reviewed, Consent Obtained/Reviewed and Anes Risks/Benef Reviewed Patient Risk: Intermediate Procedure Risk: Low Assessment/Block/Sedation in SS: Assess/Block/Sedation-SS Anesthetic Plan Anesthetic Plan: GA Disposition: Standard PACU
[2023-08-29] VITALS (11 sets, daily range): BP systolic 90–114; BP diastolic 31–80; PULSE 68–79; RESP 16–18; TEMP 36.3; O2SAT 93–96
--- NOTE | 2023-08-29 11:17 | MHC.SHP ---
Pre-Procedural Eval Section A Date of Service: 08/29/23 The patient is an INPATIENT: No Changes since office visit: Yes Patient answered all questions The History & Physical has been completed within 30 days and I have reviewed it.: No Section B Chief Complaint: Postlaminectomy syndrome, not elsewhere classified Details of Present Illness: as above Relevant Family History (Specify if Yes): No Relevant Social History: None Present Medications: see Short Stay Collaborative assessment Medical History: No relevant PMH History of Previous Operations: No relevant previous surgery Allergies: Allergies Allergy/AdvReac Type Severity Reaction Status Date / Time Iodinated Contrast Media Allergy Unknown HIVES Verified 08/08/23 14:43 [IV DYE, IODINE CONTAINING] Review of Systems Sugical H&P ROS: Negative: Constitution, Cardiovascular, Respiratory, Neurological, Psychiatric, Hem-Onc, Allergic/Immunologic, Gastrointestinal, Genitourinary, Integumentary, Endocrine and Eyes/Ears/Nose/Throat and Yes, Specify: Musculoskeletal (postlaminectomy syndrome, S/p amputation LLE) Exam Surgical H&P Exam: Normal: HEENT, Normal: Heart, Normal: Lungs, Normal: Abdomen, Normal: Skin and Normal: Neurological and Significant Findings: Extremities (s/p amputation LLE) Plan Diagnosis/Plan: Unchanged I have reviewed the history and physical and performed a pertinent physical examination on my patient. No changes have occurred unless specified. Time Spent With Patient Time: Total time managing care of this patient today ___15_ minutes.
[2023-08-29 12:14] LABS: Glucose, Whole Blood 86 mg/dL (60-115)
--- NOTE | 2023-08-29 12:36 | W.PM.OPN ---
Operative Note Operative Note Date of Service: 08/29/23 Narrative: Removal and replacement RPG [employer] spinal cord stimulator. Radha is very pleasant 52 years old female who went to the operating room today for removal and replacement of [employer] RPG of the spinal cord stimulator. Informed consent was explained including risks benefits and alternatives. The patient came to the operating room positioned supine in stretcher, ASA monitors were applied and general endotracheal anesthesia was induced. The patient was transferred on the operating table prone. All pressure points were protected. Time-out was performed delineating correct site and side of the procedure, name and date of of the patient, risk of fire, need for DVT prophylaxis, antibiotics administered. She received 900 mg of clindamycin approximately 30 minutes before onset of the procedure. Her entire back and left upper buttock were prepped with ChloraPrep twice and draped with full body drape including Ioban film. Local anesthetic mixture of lidocaine 2% and ropivacaine 0.5% 1-1 was injected in the area of previous incision. 6 cm incision was made along side the previously healed scar at the area of left upper buttock using 10 blade scalpel. thorough hemostasis was performed. The capsule of the spinal cord stimulator was found in the wound, small incision was made on the capsule and then hemostat clamp was inserted into the pocket advanced medially and laterally and the capsule was incised over the hemostat using metzenbaum scissors. The spinal cord stimulator was found in the pocket the anchoring sutures were severed and the spinal cord stimulator was delivered to the level of the skin. It was disconnected from 2 electrodes and discarded. The new RPG battery was obtained and connected to existing electrodes. The screws were tight until clicks were heard. Impedance was checked and it was appropriate. Anchoring sutures were placed in the superior medial and superior lateral corners of the wound and they were connected to the orifices on the top of the RPG battery. The RPG battery was dislodged into the wound and advanced into the pocket. The pocket was irrigated with normal saline containing vancomycin. After that 0-0 Polysorb suture was used to close the wound , 2-0 Polysorb sutures were used to approximate the level of the skin and 4 gómez were applied to the level of the skin. Sterile dressing with bacitracin was applied and fixed to the skin to the Tegaderm drape. The patient tolerated procedure well she was transferred supine on the stretcher extubated and transferred stable to PACU. She recovered from the procedure without immediate complications.
--- NOTE | 2023-08-29 14:23 | P.BOP_ITS ---
Brief Operative Note Date of Service: 08/29/23 Pre-op diagnosis: Postlaminectomy syndrome Post-op diagnosis: same Procedure: removal and replacement of spinal cord stimulator battery [employer] Implants: [employer] RPG. Surgeon: Niels Stafford MD Anesthesia: GETA Was an Alumni Relations Officer used for this Procedure?: No Estimated blood loss (mL): 5 Pathology: none sent Condition: stable Disposition: PACU
[2023-08-29] MEDS: oxyCODONE HCl Immed Release 5 MG TABLET PO (14:38)
[2023-08-29] MEDS: Acetaminophen 1,000 MG/100 ML PIGGYBACK 400 MG IV (14:38)
[2023-08-29] MEDS: fentaNYL citrate/PF 100 MCG/2 ML VIAL 25 MCG IVPUSH ×2 (14:41→15:06)
== END 2023-08-29 15:40 | disposition home or self-care (01) ==
PROVIDERS: PCP Student in an Organized Health Care Education/Training Program; Visit Provider Anesthesiology
PROC: (CPT 63685; principal; 2023-08-29 12:50)
DX: M96.1 Postlaminectomy syndrome, not elsewhere classified (principal); M47.816 Spondylosis without myelopathy or radiculopathy, lumbar region; M54.16 Radiculopathy, lumbar region; M54.50 Low back pain, unspecified; M53.3 Sacrococcygeal disorders, not elsewhere classified; Z96.89 Presence of other specified functional implants; I73.00 Raynaud's syndrome without gangrene; I10 Essential (primary) hypertension; E11.9 Type 2 diabetes mellitus without complications; G62.9 Polyneuropathy, unspecified; K21.9 Gastro-esophageal reflux disease without esophagitis; Z79.4 Long term (current) use of insulin; Z79.899 Other long term (current) drug therapy; Z91.041 Radiographic dye allergy status; Z98.1 Arthrodesis status; Z87.891 Personal history of nicotine dependence
CPT/HCPCS: 63685; 82947; C1883; J0131; J0690; J2250; J2405; J2795; J3010; J3370

== ENCOUNTER → 2023-08-29 10:25 | Outpatient (BNV) | payer MEDICAID, SELFPAY | PROVIDERS: PCP Student in an Organized Health Care Education/Training Program; Visit Provider Anesthesiology | DX: M96.1 Postlaminectomy syndrome, not elsewhere classified (principal); Z96.82 Presence of neurostimulator | CPT/HCPCS: 63685 ==

== ENCOUNTER 2023-09-05 10:05 | Outpatient (AMB) | payer MEDICAID, SELFPAY ==
--- NOTE | 2023-09-05 10:07 | A.OFFVIS_ITS ---
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 Stafford. The wound dressing was removed and the wound cleansed with ChloraPrep. The RPG battery wound site is clean, no pathological discharge, no redness and no swelling. The gómez are intact. There is no erythema or local temperature. Bacitracin ointment was applied to the wound. Tegaderm dressing was applied. Patient is wearing an abdominal binder. If her wounds are healing well next, will take out gómez and start charging SCS device with [employer] rep. Patient reports mild pain at her incisional site and chronic right sided low back pain with radiation into her right lateral hip consistent with sacroiliac joint pain. She reports post op oxycodone short script has been beneficial for her acute and chronic pain. Denies any recent cough, cold, infection, fever or other significant changes in medical history since last office visit. PRIOR: Patient presents today for follow up for low back pain with radiation to right buttock and right lateral hip. She was previously seen in April and has pending lumbar spine MRI which has not completed yet. Per MRI department, they attempted several times to contact patient to schedule but were unable. We provided MRI contact information to patient today to schedule lumbar spine MRI. Patient was seen in [facility] 2 days ago for UTI and has started antibiotic yesterday. CT abd/pelvis was taken in ER and showed degenerative changes from L3 through S1. There is posterior fixation with pedicular screws at L4, L5 and S1. Sclerotic changes seen in the right iliac bone adjacent to the SI joint. Patient is interested to undergo diagnostic right SIJ injection as next steps to confirm her pain generator. Patient also continues to reports post laminectomy syndrome related pain with bilateral radicular leg pain with SCS device in place that has not been working since last July. Patient had SCS interrogation by Anthony from [employer] on 05/16/23,however report has not been submitted to us yet. PRIOR: Patient is a pleasant 52 years old female with prior history of lumbar fusion with hardware and prosthetic disc interspaces at L4-L5 and L5-S1 Dr. Matthias Townsend at [place], [place] (10/13/2003), [employer] SCS in place, left AKA (01/20/2007), right femoral to distal peroneal bypass (07/04/2007), debridement and skin grafting of RLE (08/22/07), chronic anticoagulation on Plavix and aspirin, COPD, HTN, GERD, depression (CHD, [place]), diabetes (A1C-7.6 on 02/2023), peripheral neuropathy and Raynaud's disease, presents today for initial low back, neck and bilateral radicular leg pain. She presents today with request to replace her [employer] SCS battery. Patient reports her battery was not charged since last July due to multiple deaths in her family, including her , brother and sister in [place]. Patient reports she received multiple invitations to change her battery in [place] but has moved in [place] in January and has no plans to return to her original state as she reports remaining of her family is here. She arrived by wheelchair due to left AKA and is accompanied by her sister. Patient reports she lost her left leg due to Raynaud's and smoking in 2006. Patient reports back pain with bilateral radiation of pain to both legs anteriorly. Reports constant aching, hurting, tingling and stinging. Gabapentin tolerates 100 mg TID due to drowsiness. Also takes Tylenol with continued pain symptoms. She reports good pain relief when SCS device was in use. She also reports left sided neck pain that has been more recently. Patient also reports concerns for bladder and bowel incontinence for 6 months and was going to have MRI and evaluation in [place] but has moved to [place]. Denies any fever, open wounds, rash, swelling, shortness of breaths, abdominal or groin pain, weakness, or saddle anesthesia. [facility] Medical History PAD (peripheral artery disease) Mild acid reflux Raynauds disease Insulin dependent type 2 diabetes mellitus Peripheral neuropathy Non-insulin dependent type 2 diabetes mellitus Hypertension Surgical History Amputated left leg Social History Patient Tobacco Use Status: Former Tobacco user Quit Date: 2006 service: No Current occupational status: disabled Review of Systems Const All systems reviewed & are unremarkable except as noted in HPI and below Physical Exam General: Appears afebrile. No acute distress. Alert and oriented. Fully engaged with exam. Mood and affect appropriate. Pleasant. Follows and participates in conversation appropriately. Respiratory effort is unlabored. No cough. Able to transition from sit to stand on right leg without assistance. Transfers via wheelchair. Left AKA. Good upper extremity and RLE strength. Incision Site: Left upper buttock wound site is clean, no pathological discharge, no erythema,no tenderness, no redness and no swelling. Four gómez are intact. The wound cleansed with ChloraPrep, bacitracin ointment was applied to the wound. Dry sterile dressing and Tegaderm dressing were applied. Abdominal binder re- applied. Extrem Right lower extremity: full ROM, normal capillary refill and lower leg (multiple scars r/t peroneal bypass, debridement, skin grafting) Left lower extremity: knee (Left AKA) Assessment & Plan Assessment & Plan (1) Sacroiliac joint pain: Code(s): M53.3 - Sacrococcygeal disorders, not elsewhere classified (2) Spinal cord stimulator status: Code(s): Z96.89 - Presence of other specified functional implants (3) Lumbar radiculopathy: Code(s): M54.16 - Radiculopathy, lumbar region (4) Failed back syndrome of lumbar spine: Code(s): M96.1 - Postlaminectomy syndrome, not elsewhere classified (5) Lumbar spondylosis: Code(s): M47.816 - Spondylosis without myelopathy or radiculopathy, lumbar region Plan Patient presents today 1 week status post Removal and replacement [employer] spinal cord stimulator battery. Dressing change done in clinic today. Avoid showers. Patient is wearing an abdominal binder. If her wounds are healing well, will take out gómez next week and start charging SCS device with [employer]. Right diagnostic sacroiliac joint injection will follow then as pre viously planned. All questions and concerns have been answered and patient agreed with the plan. Follow up in 1 week and sooner if needed. Coding Level of Care Code Est Pt Level 3 (59572) Diagnoses Sacroiliac joint pain M53.3 Spinal cord stimulator status Z96.89 Lumbar radiculopathy M54.16 Failed back syndrome of lumbar spine M96.1 Lumbar spondylosis M47.816
== END 2023-09-05 10:51 | disposition home or self-care (01) ==
PROVIDERS: PCP Student in an Organized Health Care Education/Training Program; Visit Provider Nurse Practitioner Family
DX: M53.3 Sacrococcygeal disorders, not elsewhere classified (principal); Z96.89 Presence of other specified functional implants; M54.16 Radiculopathy, lumbar region; M96.1 Postlaminectomy syndrome, not elsewhere classified; M47.816 Spondylosis without myelopathy or radiculopathy, lumbar region
CPT/HCPCS: 99024

== ENCOUNTER → 2023-09-05 10:05 | Outpatient (BNVA) | payer MEDICAID, SELFPAY | PROVIDERS: PCP Student in an Organized Health Care Education/Training Program; Visit Provider Nurse Practitioner Family | DX: M96.1 Postlaminectomy syndrome, not elsewhere classified (principal); M53.3 Sacrococcygeal disorders, not elsewhere classified; M54.16 Radiculopathy, lumbar region; M47.816 Spondylosis without myelopathy or radiculopathy, lumbar region; Z96.89 Presence of other specified functional implants | CPT/HCPCS: 99212 ==

== ENCOUNTER 2023-09-12 10:47 | Outpatient (AMB) | payer MEDICAID, SELFPAY ==
--- NOTE | 2023-09-12 10:51 | MHC.OFFVIS ---
Intake Vital Signs 09/12/23 10:56 Height 5 ft 8 in Weight 176 lb BMI 26.8 BP 126/59 L Blood Pressure Location Rt brachial Position Sitting Pulse 70 Pulse Source Pulse Oximeter Pulse Oximetry (%) 100 Oxygen Delivery Method Room Air Intake Visit Reasons: S/p Romano SCS Generator Change 08/29/23/lvm Intake Note: Pain today 05/20 Ophthalmologist Required: No Accompanied by: Other Relationship Allergies Iodinated Contrast Media [IV DYE, IODINE CONTAINING] Allergy (Unknown, Verified 09/05/23 10:36) HIVES HPI HPI Comments History of Present Illness Details Patient presents today 2 weeks status post Removal and replacement [employer] spinal cord stimulator battery on 08/29/[address] Stafford. The wound dressing was removed and the wound cleansed with ChloraPrep. The RPG battery wound site is clean, no pathological discharge, no redness and no swelling. The gómez are intact. There is no erythema or local temperature. Four gómez were removed. Incisional site was cleansed with ChloraPrep again. Steri-strips applied. Bacitracin ointment was applied to the wound. Tegaderm dressing was applied. Patient is wearing an abdominal binder. Patient was scheduled to see [facility] today to assess SCS device and battery charging but was told this has been rescheduled. Patient reports denies incisional site pain and reports chronic right sided low back pain with radiation into her left leg and mildly into her right lateral hip. Denies any recent cough, cold, infection, fever or other significant changes in medical history since last office visit. PRIOR: Patient presents today for follow up for low back pain with radiation to right buttock and right lateral hip. She was previously seen in April and has pending lumbar spine MRI which has not completed yet. Per MRI department, they attempted several times to contact patient to schedule but were unable. We provided MRI contact information to patient today to schedule lumbar spine MRI. Patient was seen in [facility] 2 days ago for UTI and has started antibiotic yesterday. CT abd/pelvis was taken in ER and showed degenerative changes from L3 through S1. There is posterior fixation with pedicular screws at L4, L5 and S1. Sclerotic changes seen in the right iliac bone adjacent to the SI joint. Patient is interested to undergo diagnostic right SIJ injection as next steps to confirm her pain generator. Patient also continues to reports post laminectomy syndrome related pain with bilateral radicular leg pain with SCS device in place that has not been working since last July. Patient had SCS interrogation by Anthony from [employer] on 05/16/23,however report has not been submitted to us yet. PRIOR: Patient is a pleasant 52 years old female with prior history of lumbar fusion with hardware and prosthetic disc interspaces at L4-L5 and L5-S1 Dr. Matthias Townsend at [place], [place] (10/13/2003), [employer] SCS in place, left AKA (01/20/2007), right femoral to distal peroneal bypass (07/04/2007), debridement and skin grafting of RLE (08/22/07), chronic anticoagulation on Plavix and aspirin, COPD, HTN, GERD, depression (CHD, [place]), diabetes (A1C-7.6 on 02/2023), peripheral neuropathy and Raynaud's disease, presents today for initial low back, neck and bilateral radicular leg pain. She presents today with request to replace her [employer] SCS battery. Patient reports her battery was not charged since last July due to multiple deaths in her family, including her , brother and sister in [place]. Patient reports she received multiple invitations to change her battery in [place] but has moved in [place] in January and has no plans to return to her original state as she reports remaining of her family is here. She arrived by wheelchair due to left AKA and is accompanied by her sister. Patient reports she lost her left leg due to Raynaud's and smoking in 2006. Patient reports back pain with bilateral radiation of pain to both legs anteriorly. Reports constant aching, hurting, tingling and stinging. Gabapentin tolerates 100 mg TID due to drowsiness. Also takes Tylenol with continued pain symptoms. She reports good pain relief when SCS device was in use. She also reports left sided neck pain that has been more recently. Patient also reports concerns for bladder and bowel incontinence for 6 months and was going to have MRI and evaluation in [place] but has moved to [place]. Denies any fever, open wounds, rash, swelling, shortness of breaths, abdominal or groin pain, weakness, or saddle anesthesia. [facility] Medical History PAD (peripheral artery disease) Mild acid reflux Raynauds disease Insulin dependent type 2 diabetes mellitus Peripheral neuropathy Non-insulin dependent type 2 diabetes mellitus Hypertension Surgical History Amputated left leg Social History Patient Tobacco Use Status: Former Tobacco user Quit Date: 2006 service: No Current occupational status: disabled Review of Systems Const All systems reviewed & are unremarkable except as noted in HPI and below Physical Exam Vital Signs: Last Vital Signs Pulse 70 09/12/23 10:56 BP 126/59 L 09/12/23 10:56 Pulse Ox 100 09/12/23 10:56 Oxygen Delivery Method Room Air 09/12/23 10:56 BMI result Body Mass Index 26.8 General: Appears afebrile. No acute distress. Alert and oriented. Fully engaged with exam. Mood and affect appropriate. Pleasant. Follows and participates in conversation appropriately. Respiratory effort is unlabored. No cough. Able to transition from sit to stand on right leg without assistance. Transfers via wheelchair. Left AKA. Good upper extremity and RLE strength. Incision Site: Left upper buttock wound site is clean, no pathological discharge, no erythema,no tenderness, no redness and no swelling. Four gómez removed. The wound cleansed with ChloraPrep prior and after gómez removal, Steri-strips and bacitracin ointment were applied to the wound. Dry sterile dressing and Tegaderm dressing were applied. Abdominal binder re-applied. Assessment & Plan Assessment & Plan (1) Sacroiliac joint pain: Code(s): M53.3 - Sacrococcygeal disorders, not elsewhere classified (2) Spinal cord stimulator status: Code(s): Z96.89 - Presence of other specified functional implants (3) Lumbar radiculopathy: Code(s): M54.16 - Radiculopathy, lumbar region (4) Failed back syndrome of lumbar spine: Code(s): M96.1 - Postlaminectomy syndrome, not elsewhere classified (5) Lumbar spondylosis: Code(s): M47.816 - Spondylosis without myelopathy or radiculopathy, lumbar region Plan Patient presents today 2 weeks status post Removal and replacement [facility] [employer] spinal cord stimulator battery. [place] were removed and dressing change done in clinic today. Avoid showers for 3-5 days. Patient is wearing an abdominal binder. Visit with [employer] rep to evaluated SCS device and charging battery was rescheduled per [employer] rep. All questions and concerns have been answered and patient agreed with the plan. Follow up as needed. Coding Level of Care Code Est Pt Level 3 (32833) Diagnoses Sacroiliac joint pain M53.3 Spinal cord stimulator status Z96.89 Lumbar radiculopathy M54.16 Failed back syndrome of lumbar spine M96.1 Lumbar spondylosis M47.816
[2023-09-12 10:56] VITALS: BP 126/59; PULSE 70; O2SAT 100; BMI 26.8
== END 2023-09-12 11:23 | disposition home or self-care (01) ==
PROVIDERS: PCP Student in an Organized Health Care Education/Training Program; Visit Provider Nurse Practitioner Family
DX: M53.3 Sacrococcygeal disorders, not elsewhere classified (principal); Z96.89 Presence of other specified functional implants; M54.16 Radiculopathy, lumbar region; M96.1 Postlaminectomy syndrome, not elsewhere classified; M47.816 Spondylosis without myelopathy or radiculopathy, lumbar region
CPT/HCPCS: 99213

== ENCOUNTER → 2023-09-12 10:47 | Outpatient (BNVA) | payer MEDICAID, SELFPAY | PROVIDERS: PCP Student in an Organized Health Care Education/Training Program; Visit Provider Nurse Practitioner Family | DX: Z45.42 Encounter for adjustment and management of neurostimulator (principal); M96.1 Postlaminectomy syndrome, not elsewhere classified; M53.3 Sacrococcygeal disorders, not elsewhere classified; M54.16 Radiculopathy, lumbar region; M47.816 Spondylosis without myelopathy or radiculopathy, lumbar region; I73.00 Raynaud's syndrome without gangrene; Z89.612 Acquired absence of left leg above knee | CPT/HCPCS: 99212 ==

== ENCOUNTER 2023-09-26 07:39 | Outpatient (AMB) | payer MEDICAID, SELFPAY ==
--- NOTE | 2023-09-26 07:49 | A.OFFVIS_ITS ---
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 Pt reports she was diagnosed with mild degree of sleep apnea and treated with CPAP. She moved from [place], and returned her CPAP. She did not own the CPAP. Pt has not used CPAP for 2 years. Pt reports she gained wt more than 40 lb since the last sleep study. She has difficulty sleeping without CPAP, sleeps with 2 pillows to breathe be tter. She snores, having gasping arousals, non refreshing sleep with daytime sleepiness. Sleep questionnaire: Have you ever been diagnosed with a sleep disorder? Yes, ALBERTINA. Have you ever had a sleep study in the past? Yes. Have you ever been treated for a sleep disorder? Yes. Do you take medications for a sleep disorder? No. Do you snore? Yes. Do you wake up gasping at night? Yes. Do you have episodes of apneas? Yes. If yes, are they witnessed? Yes. Do you have episodes of nocturnal chest pain or dyspnea? Yes. Do you have difficulty initiating sleep? Yes. Do you have difficulty maintaining sleep? Yes. Do you wake up tired? Very tired. Do you have headaches upon awakening? No. Do you wake up with dry mouth or throat? Yes. Do you have GERD? Yes, sometimes. Do you have nocturia? Yes. Do you have nocturnal leg cramps? Yes. Do you have symptoms of restless legs? Yes. Do you act out your dreams? No. Sleep hygiene questionnaire: What is your usual sleep routine? Usual bedtime is at 10 but can fall asleep 12 -1 am; Usual wake up time is at 6-7 am. Do you take naps? No. Is your sleep environment cool, dark, and quiet? Yes. Do you exercise? No. Do you take caffeine or other stimulants? Coffee in the morning and evening. Do you use electronics in bed? No. What is your work schedule? N/A. Hypersomnolence questionnaire: Do you have daytime tiredness or fatigue? Yes. Do you easily fall asleep when inactive? No. Have you ever had episodes of sudden weakness? Have you ever had episodes of sudden weakness associated with strong emotions? ON LICENSE OF [facility] Medical History PAD (peripheral artery disease) Mild acid reflux Raynauds disease Insulin dependent type 2 diabetes mellitus Peripheral neuropathy Non-insulin dependent type 2 diabetes mellitus Hypertension Surgical History Amputated left leg Family History (Updated 09/26/23 @ 07:58 by Aileen Murphy CMA) Mother Acute eczema HTN (hypertension) Diabetes Family/Other Cancer Social History (Updated 09/26/23 @ 08:00 by Aileen Murphy CMA) Alcohol intake: never Patient Tobacco Use Status: Former Tobacco user Quit Date: 2006 service: No Current occupational status: disabled Review of Systems Const All systems reviewed & are unremarkable except as noted in HPI and below ENT Reports Normal hearing present Neuro Reports Normal hearing present Physical Exam Vital Signs: Last Vital Signs Pulse 64 09/26/23 08:00 BP 102/60 09/26/23 08:00 Pulse Ox 99 09/26/23 08:00 Oxygen Delivery Method Room Air 09/26/23 08:00 BMI result Body Mass Index 26.8 Const General: cooperative and tired appearing Nutritional Appearance: overweight Orientation/consciousness: patient oriented x3 Limitations: wheelchair (left above the knee amputation. ) Neck Neck: Yes full ROM and Yes supple Neuro General: patient oriented x3 and moves all extremities Cranial nerves: Yes Bilaterally intact EOM present, Yes Midline tongue present, Yes Symmetric palate elevation present, Yes Normal hearing present, Yes Ability to bilaterally rotate head present and Yes Ability to bilaterally elevate shoulders present Cognition (Neuro): normal cognition Motor exam (neuro): Pronator motor function not present and no tremor noted Psych Appearance: grossly normal Mental Status: mental status grossly normal Speech and movement: Normal speech and movement present Affect: normal affect Attitude: cooperative Assessment & Plan Assessment & Plan (1) Sleep apnea treated with continuous positive airway pressure (CPAP): Code(s): G47.30 - Sleep apnea, unspecified (2) Snoring: Code(s): R06.83 - Snoring Plan Pt is advised to undergo home sleep study to assess for sleep apnea. Will f/u with pt after study to discuss results and appropriate treatment options. Sleep hygiene education provided. Advised patient to limit caffeine intake in the evening. Pt to call with any worsening concerns or questions. Orders: Orders RT home sleep study Today G47.30 - Sleep apnea, unspecified, R06.83 - Snoring Coding Level of Care Code New Pt Level 3 (85362) Diagnoses Sleep apnea treated with continuous positive airway pressure (CPAP) G47.30 Snoring R06.83
[2023-09-26 08:00] VITALS: BP 102/60; PULSE 64; O2SAT 99; BMI 26.8
== END 2023-09-26 08:37 | disposition home or self-care (01) ==
PROVIDERS: PCP Student in an Organized Health Care Education/Training Program; Visit Provider Nurse Practitioner Family
DX: G47.30 Sleep apnea, unspecified (principal); R06.83 Snoring
CPT/HCPCS: 99203

== ENCOUNTER → 2023-09-26 07:39 | Outpatient (BNVA) | payer MEDICAID, SELFPAY | PROVIDERS: PCP Student in an Organized Health Care Education/Training Program; Visit Provider Nurse Practitioner Family | DX: G47.30 Sleep apnea, unspecified (principal); R06.83 Snoring | CPT/HCPCS: 99212 ==

== ENCOUNTER 2023-11-25 09:42 | Outpatient (AMB) | payer MEDICAID, SELFPAY ==
[2023-11-25 09:47] VITALS: BP 119/60; PULSE 78; BMI 26.8
--- NOTE | 2023-11-25 09:47 | A.OFFVIS_ITS ---
Intake Vital Signs 11/25/23 09:47 Height 5 ft 8 in Weight 176 lb BMI 26.8 BP 119/60 Blood Pressure Location Lt brachial Position Sitting Pulse 78 Intake Visit Reasons: Gerd Intake Note: Radha presents in the office as a GERD. CC: She has acid reflux, constipation and diarrhea. She is unable to eat anything without it running right through her. She states that she has epigastric pains. Account Services Specialist Required: No Allergies Iodinated Contrast Media [IV DYE, IODINE CONTAINING] Allergy (Unknown, Verified 11/25/23 09:49) HIVES Medication List - Last Reconciled 11/25/23 by Jackie Menchaca PA-C albuterol sulfate mg inhalation Q6H PRN albuterol sulfate 90 mcg/actuation (Ventolin HFA) 2 puffs inhalation Q4H PRN amlodipine 10 mg PO BEDTIME aspirin 1 tab PO QAM atorvastatin 20 mg PO QAM bupropion HCl 100 mg PO QAM cetirizine 10 mg PO QAM clonidine HCl 0.1 mg PO BEDTIME PRN clopidogrel 75 mg PO QAM dapagliflozin propanediol (Farxiga) 10 mg PO QAM desonide 0.05% appl topical PRN dextroamphetamine-amphetamine 20 mg ER (Adderall XR) 1 cap PO QAM dulaglutide (Trulicity) mg subcut QWEEK fluticasone propion-salmeterol 250-50 mcg/dose (Advair Diskus) 1 ea inhalation BID gabapentin 200 mg PO BEDTIME insulin detemir U-100 (Levemir FlexTouch U-100 Insulin) 30 units subcut BEDTIME insulin lispro 20 units subcut TID melatonin 5 mg PO BEDTIME metformin 500 mg PO QAM montelukast 1 tab PO QPM pantoprazole 1 tab PO DAILY pantoprazole 20 mg PO QAM 30 days polyethylene glycol 3350 (Miralax) 238 grams PO ONCE 1 day potassium chloride ER 1 tab PO BID umeclidinium 62.5 mcg/actuation (Incruse Ellipta) 1 inh inhalation DAILY valsartan-hydrochlorothiazide 320-25 mg 1 tab PO DAILY HPI HPI Comments History of Present Illness Details A 53 y/o female referred with > 10 years of GERD- she has not been prescribed any medication- she take tums 3 times a day not helpful- She had an EGD and a colonoscopy about 10 [place] Plavix for 17 years has stopped for procedures without incident- Appetite is very good Bowels fluctuate sometimes lose PAD-left leg amputation 2006 She has spinal stimulator ALBERTINA uses CPAP She has no nausea, vomiting, abdominal pain, hematemesis, hematochezia fever or chills She is wheelchair dependent, however she drives stays very active No known family history of colon cancer She is relocated from [place] less than 1 year ago she has upcoming appointment with vascular as well as with pulmonology [facility] Medical History (Updated 11/25/23 @ 10:34 by Jackie Menchaca PA-C) 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 PAD (peripheral artery disease) Mild acid reflux Raynauds disease Insulin dependent type 2 diabetes mellitus Peripheral neuropathy Non-insulin dependent type 2 diabetes mellitus Hypertension Surgical History History of esophagogastroduodenoscopy (EGD) Hx of colonoscopy Amputated left leg Family History Mother Acute eczema HTN (hypertension) Diabetes Family/Other Cancer Social History Alcohol intake: never Patient Tobacco Use Status: Former Tobacco user Quit Date: 2006 service: No Current occupational status: disabled Review of Systems Const All systems reviewed & are unremarkable except as noted in HPI and below Card Denies chest pain and Denies dyspnea Resp Denies cough and Denies dyspnea GI Denies abdominal pain, Denies hematochezia, Reports heartburn, Denies nausea and Denies vomiting Physical Exam Vital Signs: Last Vital Signs Pulse 78 11/25/23 09:47 BP 119/60 11/25/23 09:47 BMI result Body Mass Index 26.8 Const General: cooperative, healthy appearing, comfortable and well groomed Orientation/consciousness: patient oriented x3 Limitations: wheelchair Eyes Sclerae: sclerae normal Resp Effort & Inspection: normal respiratory effort and able to speak in complete sentences Auscultation: clear to auscultation bilaterally, no rales, no rhonchi and no wheezes Cardio Rate: regular rate Rhythm: regular rhythm Heart sounds: S1 normal heart sound present, S2 normal heart sound present and Murmur heart sound present GI Palpation (GI): Soft to palpation and nontender Auscultation: normal bowel sounds Skin General skin exam: no rashes or lesions noted Neuro General: patient oriented x3 Extrem Other: Left leg amputation Psych Appearance: grossly normal and well kempt Mental Status: mental status grossly normal Speech and movement: Normal speech and movement present and Clear speech present Affect: normal affect Attitude: cooperative Thought process: Normal thought process present Thought content: Normal thought content present Insight: Good insight present (Psych) Judgement: Good judgement present (Psych) Assessment & Plan Assessment & Plan (1) longterm current use of anticoagulant: Comment: EGD/ colon- when appropriate plavix d/c 7 days prior- if authorized- by vascular [facility]-( )- must stop 1 full wk prior- 1/2 dose insulin olga before- omit metformin No DM meds morning of procedure Code(s): Z79.01 - longterm (current) use of anticoagulants (2) PAD (peripheral artery disease): Code(s): I73.9 - Peripheral vascular disease, unspecified (3) Acid reflux: Code(s): K21.9 - Gastro-esophageal reflux disease without esophagitis Plan: Reflux precautions Pantoprazole 20 mg daily (4) Sleep apnea treated with continuous positive airway pressure (CPAP): Code(s): G47.30 - Sleep apnea, unspecified (5) Spinal cord stimulator status: Code(s): Z96.89 - Presence of other specified functional implants Plan Will hold off on EGD colonoscopy Will see her back after she sees vascular as well as sleep medicine Reflux precautions Pantoprazole 20 mg daily Medications: New polyethylene glycol 3350 (Miralax) Take as directed by mouth the day before your procedure. 238 grams PO ONCE 1 day 238 grams 0RF laxative effect pantoprazole 20 mg PO QAM 30 days 30 tabs 6RF Patient Instructions: Very pleasant alert, 53-year-old female Will hold off on EGD colonoscopy Will see her back after she sees vascular as well as sleep medicine Reflux precautions Pantoprazole 20 mg daily Encouraged to call with questions or concerns We will see her back after further assessment with vascular and Sleep Medicine to further discuss procedures. Appreciate the opportunity assist in the care this pleasant patient Coding Level of Care Code New Pt Level 4 (17261) Diagnoses longterm current use of anticoagulant Z79.01 PAD (peripheral artery disease) I73.9 Acid reflux K21.9 Sleep apnea treated with continuous positive airway pressure (CPAP) G47.30 Spinal cord stimulator status Z96.89 Time Spent (min) 30
== END 2023-11-25 10:44 | disposition home or self-care (01) ==
PROVIDERS: PCP Student in an Organized Health Care Education/Training Program; Visit Provider Physician Assistant
DX: K21.9 Gastro-esophageal reflux disease without esophagitis (principal); I73.9 Peripheral vascular disease, unspecified; Z79.01 Long term (current) use of anticoagulants; G47.30 Sleep apnea, unspecified; Z96.89 Presence of other specified functional implants
CPT/HCPCS: 99204

== ENCOUNTER → 2023-11-25 09:42 | Outpatient (BNVA) | payer MEDICAID, SELFPAY | PROVIDERS: PCP Student in an Organized Health Care Education/Training Program; Visit Provider Physician Assistant | DX: K21.9 Gastro-esophageal reflux disease without esophagitis (principal); I73.9 Peripheral vascular disease, unspecified; G47.30 Sleep apnea, unspecified; Z79.01 Long term (current) use of anticoagulants; Z96.89 Presence of other specified functional implants | CPT/HCPCS: 99212 ==

== ENCOUNTER 2023-12-16 17:43 | Outpatient (REF) | payer MEDICAID, SELFPAY ==
[2023-12-16 17:55] LABS: Appearance Urine Cloudy; Color Urine Yellow; Glucose Urine UA >=1000 mg/dL (Negative); Leukocyte Esterase Urine Trace (Negative); Nitrite Urine Positive (Negative); PH 7.5 (5.0-9.0); Specific Gravity - Urine 1.025 (1.005-1.025); UMIC TRIGGER UACC YES; Urine Blood Negative (Negative); Urine Ketones Negative (Negative); Urine Protein Negative (Neg-Trace)
[2023-12-16 17:57] LABS: Bacteria Urine 4+ (None Seen); Hyaline Casts Urine 0-2 /LPF (0-2); RBC Urine 0-2 /HPF (0-2); UACC Culture Trigger YES
== END 2023-12-16 17:44 | disposition home or self-care (01) ==
LOC: HO.LNP 17:43
PROVIDERS: Visit Provider Student in an Organized Health Care Education/Training Program
DX: Z00.00 Encounter for general adult medical examination without abnormal findings (principal); R30.0 Dysuria; R74.8 Abnormal levels of other serum enzymes; E11.59 Type 2 diabetes mellitus with other circulatory complications; Z79.4 Long term (current) use of insulin
CPT/HCPCS: 81001; 87086; 87088; 87186

== ENCOUNTER 2023-12-17 14:58 | Outpatient (AMB) | payer MEDICAID, SELFPAY ==
--- NOTE | 2023-12-17 15:01 | MHC.OFFVIS ---
Intake Vital Signs 12/17/23 15:02 Height 5 ft 8 in Weight 176 lb BMI 26.8 Intake Visit Reasons: RENAL DIALYSIS RN/ PCP referral for Raynaud's ? gangrene Hx L AKA Intake Note: RENAL DIALYSIS RN/ PCP referral to establish care w/ vascular surgeon after moving from [place]. Pt brought some paperwork with her stating she has a history of Right femoral to distal popliteal bypass 07/04/2007 ( [facility], [facility]) and Hx of Right LE surgical debridement and skin grafting of Right Lower extremity 08/22/2007 and Left BKA 01/20/2007 and AKA shortly after ( no records) Accompanied by: Self / Same As Patient Allergies Iodinated Contrast Media [IV DYE, IODINE CONTAINING] Allergy (Unknown, Verified 12/17/23 15:08) HIVES HPI RENAL DIALYSIS RN/ PCP referral for Raynaud's ? gangrene Hx L AKA HPI Details Very pleasant 53-year-old female presents for follow-up regarding peripheral vascular disease. She had significant work done in [place] which ended up in a left AKA and she had right lower extremity bypass done in [place]. She had been doing relatively well. She has moved up to this area and is now in need of surveillance follow-up. Of note she quit smoking in 2006 and is a diabetic. [facility] Medical History 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 PAD (peripheral artery disease) Mild acid reflux Raynauds disease Insulin dependent type 2 diabetes mellitus Peripheral neuropathy Non-insulin dependent type 2 diabetes mellitus Hypertension Surgical History History of esophagogastroduodenoscopy (EGD) Hx of colonoscopy Amputated left leg Family History Mother Acute eczema HTN (hypertension) Diabetes Family/Other Cancer Social History Alcohol intake: never Patient Tobacco Use Status: Former Tobacco user Quit Date: 2006 service: No Current occupational status: disabled Review of Systems Const All systems reviewed & are unremarkable except as noted in HPI and below Reports no additional complaints ENT Reports Normal hearing present Card Denies chest pain, Denies chest pain at rest, Denies chest pain with activity and Denies pedal edema Resp Denies cough GI Denies abdominal pain Musc Denies abnormal gait, Denies muscle cramps and Denies radiating pain into limb Skin/Breast Denies skin ulcer and Denies wounds Neuro Reports Normal hearing present and Denies abnormal gait Psych Reports no additional complaints Physical Exam Vital Signs: BMI result Body Mass Index 26.8 Const General: cooperative, healthy appearing and comfortable Orientation/consciousness: oriented to person, oriented to place and oriented to time HEENT Head: Yes normal to inspection Neck Neck: Yes normal visual inspection Carotids: no bruits Chest Chest palpation & inspection: normal inspection of the chest Resp Effort & Inspection: normal respiratory effort and able to speak in complete sentences Auscultation: clear to auscultation bilaterally, no crackles, no rales, no rhonchi and no wheezes Cardio Other: Right side DP signals Rate: regular rate Rhythm: regular rhythm Heart sounds: S1 normal heart sound present and S2 normal heart sound present Bruits: no carotid bruits Peripheral pulses: Peripheral pulses 2+ throughout GI Inspection: Yes normal to inspection Skin Wounds: amputation site (Left AKA) Hair: normal Neuro General: oriented to person, oriented to place and oriented to time Cranial nerves: Yes CN's II-XII intact bilaterally and Yes Normal hearing present Cognition (Neuro): normal cognition Motor exam (neuro): 5/5 motor strength present throughout Extrem Other: venous exam: No significant superficial varicosities or spider telangiectasias, minimal edema General: No clubbing, No cyanosis and No edema Psych Appearance: grossly normal Mental Status: mental status grossly normal Speech and movement: Normal speech and movement present Assessment & Plan Assessment & Plan (1) PAD (peripheral artery disease): Comment: 2006 - [place] left BKA converted to left AKA 06/16/2007 right femoral to distal peroneal bypass done at [facility] in [place] by Code(s): I73.9 - Peripheral vascular disease, unspecified Plan: In short patient has known history of peripheral vascular disease. She will require right lower extremity arterial ultrasound. Unclear of the status of her bypass. She will follow up with us after testing. Risk factor modification discussed Thank you for allowing us to assist in her care. If there are any questions or concerns please do not hesitate to contact us Orders: Orders US arterial duplex LE RT 1 Week I73.9 - Peripheral vascular disease, unspecified Coding Level of Care Code Est Pt Level 4 (71271) Diagnoses PAD (peripheral artery disease) I73.9
[2023-12-17 15:02] VITALS: BMI 26.8
== END 2023-12-17 15:34 | disposition home or self-care (01) ==
PROVIDERS: PCP Student in an Organized Health Care Education/Training Program; Visit Provider Surgery Vascular Surgery
DX: I73.9 Peripheral vascular disease, unspecified (principal)
CPT/HCPCS: 99214

== ENCOUNTER → 2023-12-17 14:58 | Outpatient (BNVA) | payer MEDICAID, SELFPAY | PROVIDERS: PCP Student in an Organized Health Care Education/Training Program; Visit Provider Surgery Vascular Surgery | DX: I73.9 Peripheral vascular disease, unspecified (principal) | CPT/HCPCS: 99212 ==

== ENCOUNTER 2023-12-25 11:14 | Inpatient (IN) | payer MEDICAID, SELFPAY ==
--- NOTE | ~2023-12-25 | CT_ITS ---
EXAMINATION: CT ABDOMEN AND PELVIS WITHOUT CONTRAST CLINICAL INFORMATION: Right flank pain COMPARISON: Previous CT of the abdomen and pelvis July 2023 TECHNIQUE: Multidetector volumetric imaging was performed from the superior aspect of the liver through the pubic symphysis. Sagittal and coronal reformatted images were obtained on the technologist's workstation. This CT examination was performed using dose optimization techniques as appropriate, variously including the following: *Automated exposure control *Adjustment of mA and/or kV according to patient size (this includes techniques or standardized protocols for targeted exams where dose is matched to indication/reason for exam; i.e. extremities or head) *Use of iterative reconstruction technique DLP: 638 mGy-cm FINDINGS: LUNG BASES: The visualized lung bases are unremarkable. LIVER, GALLBLADDER, AND BILIARY TREE: The liver is enlarged, right lobe measuring 20 cm in length. No focal hepatic lesion or biliary ductal dilatation is present. The gallbladder has been removed. PANCREAS: Unremarkable. SPLEEN: Unremarkable. ADRENAL GLANDS: Unremarkable. KIDNEYS AND URETERS: The kidneys are normal in size, shape, and attenuation. Small bilateral renal stones. No hydronephrosis. Small bilateral renal cysts. No imaging follow-up recommended. No ureteral dilatation or ureteral stone. BLADDER: Not well evaluated GASTROINTESTINAL TRACT: The small and large bowel are unremarkable. The appendix is not seen probably been removed.. ABDOMINAL WALL: No significant hernia is appreciated. LYMPH NODES: Normal. VASCULAR: Unremarkable. PELVIC VISCERA: Enlarged fibroid uterus. OSSEOUS STRUCTURES: Postsurgical changes changes fusion hardware from old to S1. Degenerative changes at L3-L4. Spinal stimulator. Stable increased sclerosis in the right iliac bone near the sacroiliac joint. CT/CT abdomen pelvis wo IV con IMPRESSION: Small nonobstructing bilateral renal stones. No hydronephrosis. Enlarged fibroid uterus. Fleischner guidelines were followed.
--- NOTE | ~2023-12-25 | US_ITS ---
EXAMINATION: US RETROPERITONEAL LIMITED (RENAL ONLY) CLINICAL INFORMATION: Persistent pain, pyelonephritis. COMPARISON: Prior ultrasound July 2023 TECHNIQUE: Bilateral renal ultrasound performed. FINDINGS: RIGHT KIDNEY: 11.7 x 6.2 x 5.5 cm (SAG x AP x TRV). Simple cyst upper pole 1.8 x 1.8 x 1.5 cm echogenic structure in the right kidney possibly a nonobstructing stone measure 3 mm middle pole. The kidney is normal in size, contour, and echogenicity. Renal cortical thickness is normal. LEFT KIDNEY: 11.7 x 5.3 x 6.3 cm (SAG x AP x TRV). There is a simple cyst middle pole 1.2 x 1.3 x 1.6 cm. The kidney is normal in size, contour, and echogenicity. Renal cortical thickness is normal. No hydronephrosis. US/US renal BI IMPRESSION: 1. No ultrasound evidence of renal obstruction or hydronephrosis. 2. Echogenic structure in the right kidney possibly a nonobstructing stone. 3. Redemonstration of bilateral simple renal cysts, these are likely benign, no follow-up imaging is recommended.
--- NOTE | ~2023-12-25 | CT_ITS ---
EXAMINATION: CT ABDOMEN AND PELVIS WITH CONTRAST CLINICAL INFORMATION: Worsening right lower quadrant pain COMPARISON: CT abdomen pelvis 5 days ago on 12/25/2023, CT chest 10/19/2022, CT abdomen pelvis 08/06/2023. TECHNIQUE: Multidetector volumetric images were obtained from the superior aspect of the liver through the pubic symphysis following administration 85 mL of Omnipaque 350 intravenous contrast. Sagittal and coronal reformatted images were obtained on the technologist's workstation. Oral contrast: No This CT examination was performed using dose optimization techniques as appropriate, variously including the following: *Automated exposure control *Adjustment of mA and/or kV according to patient size (this includes techniques or standardized protocols for targeted exams where dose is matched to indication/reason for exam; i.e. extremities or head) *Use of iterative reconstruction technique DLP: 529 mGy-cm FINDINGS: LUNG BASES: There is a 4 mm pleural-based nodule in the right middle lobe anteriorly, unchanged when compared to 10/19/2022 CT chest. The visualized lung bases are otherwise unremarkable. LIVER, GALLBLADDER, AND BILIARY TREE: The liver is normal in size, and shape. Attenuation is slightly decreased suggesting hepatic steatosis as seen on prior noncontrast CT scans. No focal hepatic lesion or biliary ductal dilatation is present. Status post cholecystectomy. PANCREAS: Unremarkable. SPLEEN: Unremarkable. ADRENAL GLANDS: Unremarkable. KIDNEYS AND URETERS: The kidneys are normal in size, shape, and attenuation. There are bilateral benign cortical Bosniak class I renal cysts present which need no additional imaging or follow-up. No solid renal masses are seen. A small nonobstructing right renal calculus is present (3:32). No hydronephrosis, hydroureter, or additional calculi seen. No perinephric stranding. BLADDER: Unremarkable. GASTROINTESTINAL TRACT: The small and large bowel are unremarkable. The appendix is not seen in right lower quadrant surgical clips are present. ABDOMINAL WALL: No significant hernia is appreciated. Neural stimulator is present in the left buttock with leads extending up into the back and into the epidural space with the tip of the leads beyond the [id number] on the CT scan but at the level of the top of T8 on the ironing worker radiograph. LYMPH NODES: Normal. VASCULAR: Unremarkable. PELVIC VISCERA: The uterus is enlarged with multiple fibroids. OSSEOUS STRUCTURES: There is posterior fusion from L4 through S1. Disc spacers are present as well. Sclerosis is present in the posterior right iliac bone adjacent to the SI joint (4: 530), unchanged from prior. CT/CT abdomen pelvis w IV con IMPRESSION: 1. A cause for the patient's right lower quadrant pain has not been found. 2. Incidental note made of a stable 4 mm right middle lobe lung nodule, nonobstructing small punctate right renal calculus, enlarged fibroid uterus and posterior fusion L4-S1. Fleischner guidelines were followed.
[2023-12-25 12:03] VITALS: BP 128/65; PULSE 86; RESP 18; TEMP 36.4; O2SAT 96; BMI 26.8
[2023-12-25 15:07] LABS: MANUAL DIFF FLAG NO
[2023-12-25 15:09] LABS: Basophils Absolute Auto 0.1 X10*3/uL (0.0-0.2); Basophils Percent Auto 0.4 % (0-2); Eosinophils Absolute Auto 0.3 X10*3/uL (0.0-0.4); Eosinophils Percent Auto 1.7 % (0-4); Hematocrit 46.2 % (37.0-47.0); Hemoglobin 15.1 g/dl (12.0-16.0); Imm Gran Abs Auto 0.05 X10*3/uL (0.00-0.03); Imm Gran Pct Auto 0.3 % (0.0-0.4); Lymphocytes Absolute Auto 3.5 X10*3/uL (1.2-4.9); Lymphocytes Percent Auto 24.7 % (20-40); Mean Corpuscular HGB Conc 32.7 g/dl (31.0-35.0); Mean Corpuscular Hemoglobin 27.3 pg (27.0-33.0); Mean Corpuscular Volume 83.5 fL (80.0-98.0); Neutrophils Absolute Auto 9.4 x10*3/uL (2.0-8.3); Neutrophils Percent Auto 65.9 % (45-73); Platelet Count 385 X10*3/uL (160-400); Red Blood Count 5.53 X10*6/uL (4.20-5.50); Red Cell Distribution Width 13.2 % (11.0-16.0); White Blood Count 14.3 X10*3/uL (4.8-10.8)
[2023-12-25 15:23] LABS: Alanine Aminotransferase 22 U/L (0-31); Albumin Level 4.7 g/dL (3.5-5.0); Alkaline Phosphatase 191 U/L (39-117); Anion Gap 11 (12-20); Aspartate Amino Transferase 18 U/L (5-31); Bilirubin Total 0.6 mg/dL (0.0-1.0); Blood Urea Nitrogen 8 mg/dL (9-16); Calcium 10.4 mg/dL (8.4-10.2); Carbon Dioxide 30 mmol/L (22-29); Chloride 102 mmol/L (96-108); Creatinine Clr Calc Pharmacy 81.9; Estimated Glomerular Filt Rate > 60; Glucose Random 152 mg/dL (60-115); Magnesium 1.8 mg/dL (1.6-2.6); Potassium 3.7 mmol/L (3.3-5.1); Sodium 139 mmol/L (135-145)
[2023-12-25 20:27] VITALS: BP 137/73; PULSE 92; RESP 16; TEMP 36.6; O2SAT 94
[2023-12-25 20:34] LABS: Appearance Urine Cloudy; Color Urine Yellow; Glucose Urine UA >=1000 mg/dL (Negative); Leukocyte Esterase Urine Moderate (2+) (Negative); Nitrite Urine Positive (Negative); Specific Gravity - Urine >= 1.030 (1.005-1.025); UMIC TRIGGER UACC YES; Urine Blood Trace (Negative); Urine Ketones Trace mg/dL (Negative); Urine Protein Negative (Neg-Trace)
--- NOTE | 2023-12-25 20:46 | ED_ITS ---
HPI - Female Genitourinary General Chief complaint: Urogenital-Female Stated complaint: Pain when urinating Time Seen by Provider: 12/25/23 20:40 Source: patient and old records reviewed Mode of arrival: ambulatory Limitations: no limitations History of Present Illness HPI Narrative: 53 yo female with PMH of GERD, DM, LL amputation, PAD, HTN who notes since the start of December she has had urinary frequency and dysuria. She told her doctor and they Rx bactrim - at that time she grew out Klebsiella which was S to bactrim but she states she is vomiting and cannot finish it or keep it down. Rx was done 12/19. She is here with flank pain n/v. MD elicited complaint: dysuria, UTI and other (flank pain, n/v) Pertinent past history: recurrent UTIs Onset (ago): week(s) (4) Location of symptoms: other (R flank) Severity: severe Quality of pain: sharp Consistency: constant Vaginal discharge: none Vaginal bleeding: none Urinary symptoms: Dysuria, Urgency, Frequency, Foul Smelling Urine and Flank Pain Exacerbating factors: urination Relieving factors: none Associated symptoms: weakness, fever, chills, nausea and vomiting Related Data Home Medications Medication Instructions Recorded Confirmed insulin detemir U-100 100 unit/mL 30 unit subcut BEDTIME 10/20/22 11/25/23 (3 mL) subcutaneous pen (Levemir FlexTouch U-100 Insulin) insulin lispro 100 unit/mL 20 unit subcut TID 10/20/22 11/25/23 subcutaneous pen montelukast 10 mg tablet 1 tab PO QPM 10/20/22 11/25/23 pantoprazole 20 mg tablet,delayed 1 tab PO DAILY 10/20/22 11/25/23 release potassium chloride 10 mEq 1 tab PO BID 10/20/22 11/25/23 tablet,extended release valsartan 320 1 tab PO DAILY 10/20/22 11/25/23 mg-hydrochlorothiazide 25 mg tablet albuterol sulfate 90 mcg/actuation 2 puff inhalation Q4H PRN wheezing 05/06/23 11/25/23 aerosol inhaler (Ventolin HFA) bupropion HCl 100 mg tablet,12 hr 100 mg PO QAM 05/06/23 11/25/23 sustained-release cetirizine 10 mg tablet 10 mg PO QAM 05/06/23 11/25/23 clonidine HCl 0.1 mg tablet 0.1 mg PO BEDTIME PRN 05/06/23 11/25/23 clopidogrel 75 mg tablet 75 mg PO QAM 05/06/23 11/25/23 fluticasone 250 mcg-salmeterol 50 1 ea inhalation BID 05/06/23 11/25/23 mcg/dose blistr powdr for inhalation (Advair Diskus) metformin 500 mg tablet 500 mg PO QAM 05/06/23 11/25/23 albuterol sulfate 2.5 mg/3 mL mg inhalation Q6H PRN wheezing 08/08/23 11/25/23 (0.083 %) solution for nebulization atorvastatin 20 mg tablet 20 mg PO QAM 08/08/23 11/25/23 dapagliflozin propanediol 10 mg 10 mg PO QAM 08/08/23 11/25/23 tablet (Farxiga) amlodipine 10 mg tablet 10 mg PO BEDTIME 09/05/23 11/25/23 aspirin 81 mg chewable tablet 1 tab PO QAM 09/05/23 11/25/23 desonide 0.05 % topical cream appl topical PRN 09/05/23 11/25/23 umeclidinium 62.5 mcg/actuation 1 inh inhalation DAILY 09/05/23 11/25/23 blister powder for inhalation (Incruse Ellipta) dextroamphetamine-amphetamine ER 1 cap PO QAM 11/25/23 11/25/23 20 mg 24hr capsule,extend release (Adderall XR) dulaglutide 0.75 mg/0.5 mL mg subcut QWEEK 11/25/23 11/25/23 subcutaneous pen injector (Trulicity) gabapentin 100 mg capsule 200 mg PO BEDTIME 11/25/23 11/25/23 melatonin 5 mg tablet 5 mg PO BEDTIME 11/25/23 11/25/23 Previous Rx's Medication Instructions Recorded pantoprazole 20 mg tablet,delayed 20 mg PO QAM 30 days #30 tabs 11/25/23 release polyethylene glycol 3350 17 238 g PO ONCE laxative effect 1 11/25/23 gram/dose oral powder (Miralax) day #238 grams Allergies Allergy/AdvReac Type Severity Reaction Status Date / Time Iodinated Contrast Media Allergy Unknown HIVES Verified 12/25/23 12:02 [IV DYE, IODINE CONTAINING] Review of Systems 2 Review of Systems: Constitutional : No Fever, No Chills ENT/Mouth : No sore throat Eyes: No Eye Pain, No Swelling, No Redness Cardiovascular : No Chest Pain, No SOB Respiratory : No Cough, No Sputum, No Wheezing Gastrointestinal : positive Nausea, positive Vomiting, No Diarrhea, positive abdominal pain Genitourinary : positive Dysuria, positive urinary frequency, no Hematuria, positive Flank Pain, positive hesitancy Musculoskeletal : No joint pain, No Myalgias Skin : No Skin Lesions, No rash Neuro : No Weakness, No Numbness, No Headache Psych : No Anxiety/Panic, No Depression Heme/Lymph: No Bruising, No Lymphadenopathy Endocrine : No Polyuria, No Polydipsia All other systems reviewed and are negative [facility] Past Medical History Attestation statement: The following information was validated with the patient. Source: old records reviewed Medical History 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 PAD (peripheral artery disease) Mild acid reflux Raynauds disease Insulin dependent type 2 diabetes mellitus Peripheral neuropathy Non-insulin dependent type 2 diabetes mellitus Hypertension Surgical History History of esophagogastroduodenoscopy (EGD) Hx of colonoscopy Amputated left leg Family History Family History Mother Acute eczema HTN (hypertension) Diabetes Family/Other Cancer Social History Social History Alcohol intake: never Patient Tobacco Use Status: Former Tobacco user Quit Date: 2006 Advance Directives: No Advance Directives Information Provided: No service: No Current occupational status: disabled Physical Exam 2 Vital Signs: Vital Signs: Last Vital Signs Temp 97.8 F 12/25/23 20:27 Pulse 92 12/25/23 20:27 Resp 16 12/25/23 20:27 BP 137/73 12/25/23 20:27 Pulse Ox 94 12/25/23 20:27 O2 Del Method Room Air 12/25/23 20:27 BMI result Body Mass Index 26.8 Appearance: Alert. Oriented X3. No acute distress. Eyes: Pupils equal, round and reactive to light. ENT: Pharynx normal. Neck: Normal inspection. Neck supple. CVS: Normal heart rate and rhythm. Pulses normal. Respiratory: No respiratory distress. Breath sounds normal. Abdomen: Soft and nontender. Back: R CVA ttp Skin: Skin warm and dry. Normal skin color. Normal skin turgor. Extremities: No lower extremity edema. No calf ttp Neuro: Oriented X 3. No motor deficit. No sensory deficit. Course Course Course Narrative: feels better with morphine slightly but still having pain and nausea given this will need pyelo work up and admission Medications Administered Discontinued Medications Generic Name Dose Route Start Last Admin Trade Name Freq PRN Reason Stop Dose Admin Sodium Chloride 1,000 mls @ 999 mls/hr 12/25/23 20:45 12/25/23 21:18 Ns IV 12/25/23 21:45 999 mls/hr .Q1H1M RACIEL Administration Ceftriaxone Sodium 1 gm/ 50 mls @ 100 mls/hr 12/25/23 20:42 12/25/23 21:18 Sodium Chloride IV 12/25/23 21:11 100 mls/hr ONCE ONE Administration Morphine Sulfate 4 mg 12/25/23 20:42 12/25/23 21:18 Morphine Sulfate 4 Mg/Ml Cartridge IVPUSH 12/25/23 20:43 4 mg ONCE ONE Administration Protocol Ondansetron HCl 4 mg 12/25/23 20:42 12/25/23 21:18 Ondansetron Hcl 4 Mg/2 Ml Vial IVPUSH 12/25/23 20:43 4 mg ONCE ONE Administration Medical Decision Making Medical Decision Making [facility] Narrative: 53 yo female with PMH of GERD, DM, LL amputation, PAD, HTN here with c/o R flank pain chills n/v cannot keep down bactrim has UTI on exam will obtain labs, lactic acid cultures, CT scan for renal colic and start on IV ceftriaxone Differential Diagnosis Differential Diagnoses: The differential diagnosis associated with the presentation includes UTI, renal colic, pyelonephritis Admission/Observation Consideration of admission/observation: Escalation of care including admission/observation considered repeat nausea medications, IV pain medications, failed outpatient IV antibiotics Consult Healthcare Provider Management of the patient was discussed with: Hospitalist (will admit) Lab Data MDM Lab Attestation statement: I reviewed the patient's lab results. 12/25/23 15:03 12/25/23 15:03 Labs: Lab Results 12/25/23 12/25/23 12/25/23 Range/Units 15:03 20:27 21:06 WBC 14.3 H (4.8-10.8) X10*3/uL RBC 5.53 H (4.20-5.50) X10*6/uL Hgb 15.1 (12.0-16.0) g/dl Hct 46.2 (37.0-47.0) % MCV 83.5 (80.0-98.0) fL MCH 27.3 (27.0-33.0) pg MCHC 32.7 (31.0-35.0) g/dl RDW 13.2 (11.0-16.0) % Plt Count 385 (160-400) X10*3/uL MPV 10.0 (9.4-12.3) fL Immature Gran % (Auto) 0.3 (0.0-0.4) % Neut % (Auto) 65.9 (45-73) % Lymph % (Auto) 24.7 (20-40) % [place] % (Auto) 7.0 (2-11) % Eos % (Auto) 1.7 (0-4) % Baso % (Auto) 0.4 (0-2) % Lymph # (Auto) 3.5 (1.2-4.9) X10*3/uL [place] # (Auto) 1.0 (0.1-1.2) X10*3/uL Eos # (Auto) 0.3 (0.0-0.4) X10*3/uL Baso # (Auto) 0.1 (0.0-0.2) X10*3/uL Abs Immat Gran (auto) 0.05 H (0.00-0.03) X10*3/uL Absolute Neuts (auto) 9.4 H (2.0-8.3) x10*3/uL Absolute Nucleated RBC 0.000 (0.0-0.012) X10*3/uL Nucleated RBC % (auto) 0.0 (0.0-0.2) /100WBC Sodium 139 (135-145) mmol/L Potassium 3.7 (3.3-5.1) mmol/L Chloride 102 (96-108) mmol/L Carbon Dioxide 30 H (22-29) mmol/L Anion Gap 11 L (12-20) BUN 8 L (9-16) mg/dL Creatinine 0.86 (0.5-1.4) mg/dL Estim Creat Clear Calc 81.9 Estimated GFR > 60 Random Glucose 152 H (60-115) mg/dL Lactic Acid 2.1 H* (0.5-2.0) mmol/L Calcium 10.4 H (8.4-10.2) mg/dL Magnesium 1.8 (1.6-2.6) mg/dL Total Bilirubin 0.6 (0.0-1.0) mg/dL AST 18 (5-31) U/L ALT 22 (0-31) U/L Alkaline Phosphatase 191 H (39-117) U/L Total Protein 8.0 (6.5-8.0) g/dL Albumin 4.7 (3.5-5.0) g/dL Urine Color Yellow Urine Appearance Cloudy Urine pH 6.0 (5.0-9.0) Ur Specific Hughes >= 1.030 H (1.005-1.025) Urine Protein Negative (Neg-Trace) mg/dL Urine Glucose (UA) >=1000 H (Negative) mg/dL Urine Ketones Trace (Negative) mg/dL Urine Blood Trace H (Negative) Urine Nitrite Positive H (Negative) Ur Leukocyte Esterase Moderate (2+) H (Negative) Urine RBC 0-2 (0-2) /HPF Urine WBC >50 H (0-5) /HPF Ur Squamous Epith Cells 6-10 (0-2) /HPF Urine Bacteria 4+ (None Seen) Hyaline Casts 0-2 (0-2) /LPF Independent Interpretation I performed an independent interpretation of an: CT Scan (no stone) Radiology Impression Discussion of test interpretation with radiology: I have reviewed the radiologist's reading. External Record Review External record reviewed: Inpatient record and Prior outpatient labs Critical Care Time Critical Care Time Critical Care Time: Yes Total Critical Care Time: 45 Attestation: repeat IV pain medications, admission I attest to this time spent taking care of the patient Discharge Plan Discharge Clinical Impression: Pyelonephritis, Acidosis, lactic Elevated WBC count Qualifiers: Leukocytosis type: unspecified Qualified Code(s): D72.829 - Elevated white blood cell count, unspecified Patient Disposition: Admitted As Inpatient Prescriptions: No Action potassium chloride 10 mEq tablet extended release 1 tab PO BID pantoprazole 20 mg tablet,delayed release (DR/EC) 1 tab PO DAILY montelukast 10 mg tablet 1 tab PO QPM insulin lispro 100 unit/mL insulin pen 20 unit subcut TID Levemir FlexTouch U100 Insulin 100 unit/mL (3 mL) insulin pen 30 unit subcut BEDTIME valsartan-hydrochlorothiazide 320-25 mg tablet 1 tab PO DAILY gabapentin 100 mg capsule 200 mg PO BEDTIME Trulicity 0.75 mg/0.5 mL pen injector subcut QWEEK melatonin 5 mg tablet 5 mg PO BEDTIME dextroamphetamine-amphetamine [Adderall XR] 20 mg capsule,extended release 24hr 1 cap PO QAM pantoprazole 20 mg tablet,delayed release (DR/EC) 20 mg PO QAM 30 Days Qty: 30 6RF polyethylene glycol 3350 [Miralax] 17 gram/dose powder 238 g PO ONCE 1 Days Qty: 238 0RF Rx Instructions: Take as directed by mouth the day before your procedure. bupropion HCl 100 mg tablet sustained-release 12 hr 100 mg PO QAM cetirizine 10 mg tablet 10 mg PO QAM clopidogrel 75 mg tablet 75 mg PO QAM albuterol sulfate [Ventolin HFA] 90 mcg/actuation HFA aerosol inhaler 2 puff inhalation Q4H PRN (Reason: wheezing) metformin 500 mg tablet 500 mg PO QAM clonidine HCl 0.1 mg tablet 0.1 mg PO BEDTIME PRN fluticasone propion-salmeterol [Advair Diskus] 250-50 mcg/dose blister with device 1 ea inhalation BID albuterol sulfate 2.5 mg /3 mL (0.083 %) solution for nebulization inhalation Q6H PRN (Reason: wheezing) Farxiga 10 mg tablet 10 mg PO QAM atorvastatin 20 mg tablet 20 mg PO QAM amlodipine 10 mg tablet 10 mg PO BEDTIME aspirin 81 mg tablet,chewable 1 tab PO QAM desonide 0.05 % cream topical PRN Incruse Ellipta 62.5 mcg/actuation blister with device 1 inh inhalation DAILY
[2023-12-25 20:49] LABS: Bacteria Urine 4+ (None Seen); Hyaline Casts Urine 0-2 /LPF (0-2); RBC Urine 0-2 /HPF (0-2); UACC Culture Trigger YES; WBC Urine >50 /HPF (0-5)
[2023-12-25] MEDS: ondansetron HCL 4 MG/2 ML VIAL IVPUSH ×2 (21:18→23:18)
[2023-12-25] MEDS: 0.9 % Sodium Chloride 1,000 ML 999 ML IV (21:18)
[2023-12-25] MEDS: cefTRIAXone sodium 1 GM in 0.9 % Sodium Chloride 50 ML IV (21:18)
[2023-12-25] MEDS: Morphine Sulfate 4 MG/ML CARTRIDGE IVPUSH (21:18)
[2023-12-25 21:39] LABS: Lactic Acid 2.1 mmol/L (0.5-2.0)
--- NOTE | 2023-12-25 22:44 | PM.IMHP ---
History of Present Illness Date of Service: 12/25/23 Chief Complaint: Abdominal pain, nausea/vomiting This is a 53-year-old female with pertinent history of peripheral vascular disease status post left AKA, insulin-dependent diabetes mellitus, essential hypertension, mood disorder, gastroesophageal reflux disease who presents to the emergency department for evaluation of right flank pain, nausea and vomiting. Patient states she has been having burning micturition for about 10 days now. She saw her PCP and was initiated on Bactrim. Patient took 3 doses of Bactrim but could not keep it down due to nausea and vomiting. She continued to have her symptoms of increased urinary frequency and dysuria. Patient also developed right-sided flank pain on the day of presentation. Unable to tolerate p.o. intake due to nausea and vomiting. No fever or chills. No chest discomfort, palpitations, shortness of breath, changes in bowel habits. In the emergency department, urine was concerning for UTI and WBC found to be elevated. Review of Systems Constitutional: Constitutional: Reports poor appetite and Reports weakness Cardiovascular: Cardiovascular: Reports no additional cardiovascular complaints Respiratory: Respiratory: Reports no additional respiratory complaints Gastrointestinal: Gastrointestinal: Reports abdominal pain Genitourinary: Genitourinary: Reports dysuria and Reports urinary urgency Neurologic: Reports weakness [facility] Medical History 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 PAD (peripheral artery disease) Mild acid reflux Raynauds disease Insulin dependent type 2 diabetes mellitus Peripheral neuropathy Non-insulin dependent type 2 diabetes mellitus Hypertension Family History Mother Acute eczema HTN (hypertension) Diabetes Family/Other Cancer Surgical History History of esophagogastroduodenoscopy (EGD) Hx of colonoscopy Amputated left leg Social History Alcohol intake: never Patient Tobacco Use Status: Former Tobacco user Quit Date: 2006 Advance Directives: No Advance Directives Information Provided: No service: No Current occupational status: disabled Meds Allergies Allergy/AdvReac Type Severity Reaction Status Date / Time Iodinated Contrast Media Allergy Unknown HIVES Verified 12/25/23 12:02 [IV DYE, IODINE CONTAINING] Home Medications Medication Instructions Recorded Confirmed Last Taken Type insulin detemir U-100 100 unit/mL 30 unit subcut BEDTIME 10/20/22 11/25/23 10/18/22 History (3 mL) subcutaneous pen (Levemir FlexTouch U-100 Insulin) insulin lispro 100 unit/mL 20 unit subcut TID 10/20/22 11/25/23 10/18/22 History subcutaneous pen montelukast 10 mg tablet 1 tab PO QPM 10/20/22 11/25/23 10/18/22 History pantoprazole 20 mg tablet,delayed 1 tab PO DAILY 10/20/22 11/25/23 10/18/22 History release potassium chloride 10 mEq 1 tab PO BID 10/20/22 11/25/23 10/18/22 History tablet,extended release valsartan 320 1 tab PO DAILY 10/20/22 11/25/23 10/18/22 History mg-hydrochlorothiazide 25 mg tablet albuterol sulfate 90 mcg/actuation 2 puff inhalation Q4H PRN wheezing 05/06/23 11/25/23 Unknown History aerosol inhaler (Ventolin HFA) bupropion HCl 100 mg tablet,12 hr 100 mg PO QAM 05/06/23 11/25/23 Unknown History sustained-release cetirizine 10 mg tablet 10 mg PO QAM 05/06/23 11/25/23 Unknown History clonidine HCl 0.1 mg tablet 0.1 mg PO BEDTIME PRN 05/06/23 11/25/23 Unknown History clopidogrel 75 mg tablet 75 mg PO QAM 05/06/23 11/25/23 Unknown History fluticasone 250 mcg-salmeterol 50 1 ea inhalation BID 05/06/23 11/25/23 Unknown History mcg/dose blistr powdr for inhalation (Advair Diskus) metformin 500 mg tablet 500 mg PO QAM 05/06/23 11/25/23 Unknown History albuterol sulfate 2.5 mg/3 mL mg inhalation Q6H PRN wheezing 08/08/23 11/25/23 Unknown History (0.083 %) solution for nebulization atorvastatin 20 mg tablet 20 mg PO QAM 08/08/23 11/25/23 Unknown History dapagliflozin propanediol 10 mg 10 mg PO QAM 08/08/23 11/25/23 Unknown History tablet (Farxiga) amlodipine 10 mg tablet 10 mg PO BEDTIME 09/05/23 11/25/23 Unknown History aspirin 81 mg chewable tablet 1 tab PO QAM 09/05/23 11/25/23 Unknown History desonide 0.05 % topical cream appl topical PRN 09/05/23 11/25/23 Unknown History umeclidinium 62.5 mcg/actuation 1 inh inhalation DAILY 09/05/23 11/25/23 Unknown History blister powder for inhalation (Incruse Ellipta) dextroamphetamine-amphetamine ER 1 cap PO QAM 11/25/23 11/25/23 Unknown History 20 mg 24hr capsule,extend release (Adderall XR) dulaglutide 0.75 mg/0.5 mL mg subcut QWEEK 11/25/23 11/25/23 Unknown History subcutaneous pen injector (Trulicity) gabapentin 100 mg capsule 200 mg PO BEDTIME 11/25/23 11/25/23 Unknown History melatonin 5 mg tablet 5 mg PO BEDTIME 11/25/23 11/25/23 Unknown History Physical Exam Vital Signs and Narrative: Vital Signs: Last Vital Signs Temp 97.8 F 12/25/23 20:27 Pulse 92 12/25/23 20:27 Resp 16 12/25/23 20:27 BP 137/73 12/25/23 20:27 Pulse Ox 94 12/25/23 20:27 O2 Del Method Room Air 12/25/23 20:27 BMI result Body Mass Index 26.8 Middle-aged female lying in bed in no distress Neck supple, no JVD Regular rate and rhythm, S1-S2 heard Regular breath sounds bilaterally, no wheezing or crackles appreciated Abdomen with right CVA tenderness, no guarding, no rigidity, no rebound tenderness Patient is awake, alert and oriented to self, place, time and person ; no focal motor deficit Psych: Normal mood No pedal edema Results Labs 12/25/23 15:03 12/25/23 15:03 Labs: Laboratory Results - last 24 hr 12/25/23 12/25/23 12/25/23 15:03 20:27 21:06 MCV 83.5 MCH 27.3 MCHC 32.7 RDW 13.2 Plt Count 385 MPV 10.0 Immature Gran % (Auto) 0.3 Neut % (Auto) 65.9 Lymph % (Auto) 24.7 [place] % (Auto) 7.0 Eos % (Auto) 1.7 Baso % (Auto) 0.4 Lymph # (Auto) 3.5 [place] # (Auto) 1.0 Eos # (Auto) 0.3 Baso # (Auto) 0.1 Abs Immat Gran (auto) 0.05 H Absolute Neuts (auto) 9.4 H Absolute Nucleated RBC 0.000 Nucleated RBC % (auto) 0.0 Anion Gap 11 L Estim Creat Clear Calc 81.9 Estimated GFR > 60 Random Glucose 152 H Lactic Acid 2.1 H* Calcium 10.4 H Magnesium 1.8 Total Bilirubin 0.6 AST 18 ALT 22 Alkaline Phosphatase 191 H Total Protein 8.0 Albumin 4.7 Urine Color Yellow Urine Appearance Cloudy Urine pH 6.0 Ur Specific [place] >= 1.030 H Urine Protein Negative Urine Glucose (UA) >=1000 H Urine Ketones Trace Urine Blood Trace H Urine Nitrite Positive H Ur Leukocyte Esterase Moderate (2+) H Urine RBC 0-2 Urine WBC >50 H Ur Squamous Epith Cells 6-10 Urine Bacteria 4+ Hyaline Casts 0-2 Imaging Radiologist's Impressions: Impressions Abdomen/Pelvis CT 12/25/23 20:56 IMPRESSION: Small nonobstructing bilateral renal stones. No hydronephrosis. Enlarged fibroid uterus. Fleischner guidelines were followed. Assessment and Plan (1) Pyelonephritis: Status: Acute Plan This is a 53-year-old female with pertinent history of peripheral vascular disease status post left AKA, insulin-dependent diabetes mellitus, essential hypertension, mood disorder, gastroesophageal reflux disease who presents to the emergency department for evaluation of right flank pain, nausea and vomiting. #. Sepsis due to clinical pyelonephritis in the setting of acute UTI: Will admit patient and initiate empiric IV antibiotics. Failed outpatient p.o. antibiotics. Follow urine culture and blood culture. Lactic acid obtained. Resuscitated with IV crystalloids #. Lactic acidosis due to sepsis. Hold metformin #. Insulin-dependent diabetes mellitus: Hold metformin. Initiating Accu-Cheks with sliding scale insulin #. Mood disorder: Continue home mood stabilizers #. Gastroesophageal reflux disease: On PPI #. Essential hypertension: Hold antihypertensives in the setting of sepsis #. ALBERTINA: Continue CPAP at bedtime Med rec pending DVT prophylaxis: Lovenox Full code Admit as inpatient and will require two night minimum hospital stay for IV antibiotics (as above), which is not possible in a lesser acute setting. Quality Stroke Does the patient have a stroke diagnosis?: No VTE Prior VTE?: No VTE Risk Level:: Medical - moderate - high VTE Device Contraindication: Treatment Not Indicated VTE Drug Contraindication: N/A - Med Ordered
--- NOTE | 2023-12-25 23:00 | PC.NURSE ---
U/S at bedside. Labs obtained by computer tech.
[2023-12-25] MEDS: HYDROmorphone HCl 0.5 MG/0.5 ML SYRINGE IVPUSH (23:17)
[2023-12-25] MEDS: Enoxaparin Sodium 40 MG/0.4 ML SYRINGE SUBCUT (23:18)
--- NOTE | 2023-12-25 23:20 | PC.NURSE ---
Medicated per MAR for 1010 pain. Pt aware of plan to admit.
[2023-12-25 23:25] LABS: Reflex Lactate? Lactic Acid Added
[2023-12-25 23:27] VITALS: BP 96/35; PULSE 76; RESP 16; TEMP 37.2; O2SAT 98
[2023-12-25] MEDS: 0.9 % Sodium Chloride 500 ML 999 ML IV (23:45)
--- NOTE | 2023-12-25 23:46 | PC.NURSE ---
Pt moved into room 5 for comfort. IVF infusing per MAR. Call rao within reach.
[2023-12-26] VITALS (10 sets, daily range): BP systolic 90–136; BP diastolic 39–67; PULSE 62–81; RESP 16–18; TEMP 36.3–37.1; O2SAT 92–97; BMI 27.8
[2023-12-26 01:24] LABS: ~Lactic Acid-LAB USE ONLY 1.3 mmol/L (0.5-2.0)
[2023-12-26] MEDS: Phenazopyridine HCL 100 MG TABLET PO (05:05)
--- NOTE | 2023-12-26 05:06 | PC.NURSE ---
Pt medicated per JAN with Pyridim for painful urination
[2023-12-26 05:29] LABS: MANUAL DIFF FLAG NO
[2023-12-26 05:30] LABS: Basophils Absolute Auto 0.1 X10*3/uL (0.0-0.2); Basophils Percent Auto 0.5 % (0-2); Eosinophils Absolute Auto 0.3 X10*3/uL (0.0-0.4); Eosinophils Percent Auto 2.4 % (0-4); Hematocrit 40.4 % (37.0-47.0); Imm Gran Abs Auto 0.06 X10*3/uL (0.00-0.03); Imm Gran Pct Auto 0.5 % (0.0-0.4); Lymphocytes Absolute Auto 4.4 X10*3/uL (1.2-4.9); Lymphocytes Percent Auto 34.3 % (20-40); Mean Corpuscular HGB Conc 32.2 g/dl (31.0-35.0); Mean Corpuscular Hemoglobin 26.9 pg (27.0-33.0); Mean Corpuscular Volume 83.6 fL (80.0-98.0); Mean Platelet Volume 10.1 fL (9.4-12.3); Monocytes Absolute Auto 0.9 X10*3/uL (0.1-1.2); Monocytes Percent Auto 7.2 % (2-11); Neutrophils Percent Auto 55.1 % (45-73); Platelet Count 349 X10*3/uL (160-400); Red Blood Count 4.83 X10*6/uL (4.20-5.50); Red Cell Distribution Width 13.3 % (11.0-16.0); White Blood Count 12.7 X10*3/uL (4.8-10.8)
[2023-12-26 05:51] LABS: Anion Gap 11 (12-20); Blood Urea Nitrogen 8 mg/dL (9-16); Calcium 8.8 mg/dL (8.4-10.2); Carbon Dioxide 24 mmol/L (22-29); Chloride 106 mmol/L (96-108); Estimated Glomerular Filt Rate > 60; Glucose Random 132 mg/dL (60-115); Potassium 3.3 mmol/L (3.3-5.1); Sodium 138 mmol/L (135-145)
--- NOTE | 2023-12-26 07:02 | PC.RT ---
Pt refused NOC CPAP
[2023-12-26 07:17] LABS: Glucose, Whole Blood 135 mg/dL (60-115)
[2023-12-26] MEDS: 0.9 % Sodium Chloride Flush 3 ML SYRINGE IVFLUSH ×3 (08:38→23:34)
[2023-12-26] MEDS: Acetaminophen 325 MG TABLET 650 MG PO ×2 (08:44→16:02)
--- NOTE | 2023-12-26 08:47 | PC.NURSE ---
Provider at bedside stating just to give x 1 liter NS
[2023-12-26] MEDS: 0.9 % Sodium Chloride 1,000 ML 999 ML IVCONT (08:48)
--- NOTE | 2023-12-26 09:49 | PHA.MEDREC ---
Pharmacy Consult ? Medication Reconciliation Pharmacy has completed the medication reconciliation. Spoke to patient and confirmed medication list.
[2023-12-26] MEDS: oxyCODONE HCl Immed Release 5 MG TABLET PO ×3 (10:31→20:53)
[2023-12-26 11:54] LABS: Glucose, Whole Blood 181 mg/dL (60-115)
[2023-12-26] MEDS: Insulin Lispro 100 UNIT/ML 3 ML VIAL SUBCUT ×3 (11:58→20:57)
--- NOTE | 2023-12-26 13:07 | P.PNIM_ITS ---
Subjective Subjective Date of Service: 12/26/23 Interval History: BP recorded as 93/39 but on my recheck it is 106/57 and now 112/67 c/o R kidney pain no fever This history was taken in Danish from the patient. Review of Systems Review of Systems: Yes all other systems are reviewed and are negative Physical Exam 2 Vital Signs: Vital Signs: Last Vital Signs Temp 98.1 F 12/26/23 08:32 Pulse 66 12/26/23 10:34 Resp 18 12/26/23 10:34 BP 112/67 12/26/23 10:34 Pulse Ox 96 12/26/23 08:38 O2 Del Method Room Air 12/26/23 08:38 BMI result Body Mass Index 26.8 Gen: in no acute distress HEENT: sclera anicteric, moist mucus membranes Neck: supple Lungs: clear to auscultation bilaterally Heart: regular rate and rhythm, no murmurs Abd: soft, non-tender, non-distended : R CVA tenderness Ext: no edema, L AKA Skin: warm/well-perfused Neuro: alert and oriented x3, no focal findings Psych: appropriate affect Objective Data Active Medications Acetaminophen (Acetaminophen 325 Mg Tablet) 650 mg PO Q6H PRN PRN Reason: Pain, Mild (Pain Scale 1-3) Last Admin: 12/26/23 08:44 Dose: 650 mg Documented By: SERENA Albuterol Sulfate (Albuterol Sulfate 90 Mcg 8 Gm Inhaler) 2 puff INHALE Q4H PRN PRN Reason: wheezing Dextrose (Dextrose 50 % 25 Gm/50 Ml Syringe) 25 gm IVPUSH Q15M PRN; Protocol PRN Reason: per Hypoglycemia Standing Ord. Enoxaparin Sodium (Enoxaparin Sodium 40 Mg/0.4 Ml Syringe) 40 mg SUBCUT Q24H RACIEL Last Admin: 12/25/23 23:18 Dose: 40 mg Documented By: NISHA Glucose (Glucose Gel 15 Gm Gel..Gram.) 15 gm PO Q15M PRN; Protocol PRN Reason: per Hypoglycemia Standing Ord. Ceftriaxone Sodium 1 gm/ (Sodium Chloride) 50 mls @ 100 mls/hr IV Q24H RACIEL Insulin Human Lispro (Insulin Lispro 100 Unit/Ml 3 Ml Vial) 0 unit SUBCUT QIDACHS RACIEL; Protocol Last Admin: 12/26/23 11:58 Dose: 2 unit Documented By: SERENA Melatonin (Melatonin 3 Mg Tablet) 6 mg PO BEDTIME PRN PRN Reason: Insomnia Ondansetron HCl (Ondansetron Hcl 4 Mg/2 Ml Vial) 4 mg IVPUSH Q8H PRN PRN Reason: Nausea and Vomiting Oxycodone HCl (Oxycodone Hcl Immed Release 5 Mg Tablet) 5 mg PO Q4H PRN PRN Reason: severe pain Last Admin: 12/26/23 10:31 Dose: 5 mg Documented By: SERENA Phenazopyridine HCl (Phenazopyridine Hcl 100 Mg Tablet) 100 mg PO TIDWM PRN PRN Reason: Pain, Mild (Pain Scale 1-3) Stop: 12/28/23 04:43 Last Admin: 12/26/23 05:05 Dose: 100 mg Documented By: SONG Sodium Chloride (0.9 % Sodium Chloride Flush 3 Ml Syringe) [facility] Last Admin: 12/26/23 08:38 Dose: 3 ml Documented By: SERENA Labs 12/26/23 04:38 12/26/23 04:38 Labs: Laboratory Results - last 24 hr 12/25/23 12/25/23 12/25/23 15:03 20:27 21:06 MCV 83.5 MCH 27.3 MCHC 32.7 RDW 13.2 Plt Count 385 MPV 10.0 Immature Gran % (Auto) 0.3 Neut % (Auto) 65.9 Lymph % (Auto) 24.7 [place] % (Auto) 7.0 Eos % (Auto) 1.7 Baso % (Auto) 0.4 Lymph # (Auto) 3.5 [place] # (Auto) 1.0 Eos # (Auto) 0.3 Baso # (Auto) 0.1 Abs Immat Gran (auto) 0.05 H Absolute Neuts (auto) 9.4 H Absolute Nucleated RBC 0.000 Nucleated RBC % (auto) 0.0 Anion Gap 11 L Estim Creat Clear Calc 81.9 Estimated GFR > 60 POC Glucose Random Glucose 152 H Lactic Acid 2.1 H* Lactic Acid F/U @ 2Hr Calcium 10.4 H Magnesium 1.8 Total Bilirubin 0.6 AST 18 ALT 22 Alkaline Phosphatase 191 H Total Protein 8.0 Albumin 4.7 Urine Color Yellow Urine Appearance Cloudy Urine pH 6.0 Ur Specific [place] >= 1.030 H Urine Protein Negative Urine Glucose (UA) >=1000 H Urine Ketones Trace Urine Blood Trace H Urine Nitrite Positive H Ur Leukocyte Esterase Moderate (2+) H Urine RBC 0-2 Urine WBC >50 H Ur Squamous Epith Cells 6-10 Urine Bacteria 4+ Hyaline Casts 0-2 12/26/23 12/26/23 12/26/23 01:07 04:38 07:14 MCV 83.6 MCH 26.9 L MCHC 32.2 RDW 13.3 Plt Count 349 MPV 10.1 Immature Gran % (Auto) 0.5 H Neut % (Auto) 55.1 Lymph % (Auto) 34.3 [place] % (Auto) 7.2 Eos % (Auto) 2.4 Baso % (Auto) 0.5 Lymph # (Auto) 4.4 [place] # (Auto) 0.9 Eos # (Auto) 0.3 Baso # (Auto) 0.1 Abs Immat Gran (auto) 0.06 H Absolute Neuts (auto) 7.0 Absolute Nucleated RBC 0.000 Nucleated RBC % (auto) 0.0 Anion Gap 11 L Estim Creat Clear Calc 94.0 Estimated GFR > 60 POC Glucose 135 H Random Glucose 132 H Lactic Acid Lactic Acid F/U @ 2Hr 1.3 Calcium 8.8 D Magnesium Total Bilirubin AST ALT Alkaline Phosphatase Total Protein Albumin Urine Color Urine Appearance Urine pH Ur Specific [place] Urine Protein Urine Glucose (UA) Urine Ketones Urine Blood Urine Nitrite Ur Leukocyte Esterase Urine RBC Urine WBC Ur Squamous Epith Cells Urine Bacteria Hyaline Casts 12/26/23 11:51 MCV MCH MCHC RDW Plt Count MPV Immature Gran % (Auto) Neut % (Auto) Lymph % (Auto) [place] % (Auto) Eos % (Auto) Baso % (Auto) Lymph # (Auto) [place] # (Auto) Eos # (Auto) Baso # (Auto) Abs Immat Gran (auto) Absolute Neuts (auto) Absolute Nucleated RBC Nucleated RBC % (auto) Anion Gap Estim Creat Clear Calc Estimated GFR POC Glucose 181 H Random Glucose Lactic Acid Lactic Acid F/U @ 2Hr Calcium Magnesium Total Bilirubin AST ALT Alkaline Phosphatase Total Protein Albumin Urine Color Urine Appearance Urine pH Ur Specific [place] Urine Protein Urine Glucose (UA) Urine Ketones Urine Blood Urine Nitrite Ur Leukocyte Esterase Urine RBC Urine WBC Ur Squamous Epith Cells Urine Bacteria Hyaline Casts Assessment and Plan (1) Pyelonephritis: Status: Acute Plan d2 53yo F with PVD s/p AKA, DM2, HTN, GERD, mood disorder presenting with urinary discomfort x2 wk, flank pain, N/V took 3 doses of Bactrim but then developed N/V found to be septic sepsis due to pyelonephritis - continue ceftriaxone, follow BCx/UCx, resucitated with IV fluids; lactate normalized HTN - hold valsartan-HCTZ + amlodipine PAD - continue ASA/clopidogrel + atorvastatin chronic lung disease - continue home inhalers, montelukast DM2 - hold MTF + dapagliflozin, give basal-bolus insulin mood disorder - hold clonidine GERD - PPI VTE ppx - LMWH dispo - TBD In my clinical judgment, the patient requires continued inpatient hospitalization for the following reasons: IV ABX Total time managing care of this patient today: 35 minutes. Quality Stroke Does the patient have a stroke diagnosis?: No VTE Prior VTE?: No VTE Risk Level:: Medical - moderate - high VTE Device Contraindication: Treatment Not Indicated VTE Drug Contraindication: N/A - Med Ordered
[2023-12-26] MEDS: Dextroamphetamine/Amphetamine XR 10 MG CAP.ER.24H 20 MG PO (15:11)
[2023-12-26] MEDS: Montelukast Sodium 10 MG TABLET PO ×2 (15:11→19:57)
[2023-12-26] MEDS: Omeprazole 20 MG CAPSULE.DR PO (15:11)
[2023-12-26] MEDS: Loratadine 10 MG TABLET PO (15:11)
[2023-12-26] MEDS: Atorvastatin Calcium 20 MG TABLET PO (15:12)
[2023-12-26] MEDS: Gabapentin 100 MG CAPSULE 200 MG PO ×2 (15:12→19:57)
[2023-12-26] MEDS: Clopidogrel Bisulfate 75 MG TABLET PO (15:12)
[2023-12-26] MEDS: Aspirin 81 MG TAB.CHEW PO (15:13)
[2023-12-26 16:09] LABS: Glucose, Whole Blood 162 mg/dL (60-115)
--- NOTE | 2023-12-26 17:22 | PC.NURSE ---
Patient with hx of LBKA 17 years ago,denies falls,independent ,encouraged patient to ask for assistance as needed
[2023-12-26] MEDS: Fluticasone/Vilanterol 100/25 BLST.W.DEV 1 PUFF INHALE (19:31)
[2023-12-26] MEDS: cefTRIAXone sodium 1 GM in 0.9 % Sodium Chloride 50 ML IV (19:58)
[2023-12-26 20:55] LABS: Glucose, Whole Blood 175 mg/dL (60-115)
[2023-12-26] MEDS: Enoxaparin Sodium 40 MG/0.4 ML SYRINGE SUBCUT (20:57)
[2023-12-27] MEDS: oxyCODONE HCl Immed Release 5 MG TABLET PO ×5 (03:42→20:20)
[2023-12-27 03:48] VITALS: BP 103/51; PULSE 71; RESP 16; TEMP 36; O2SAT 94
[2023-12-27 04:42] VITALS: RESP 18
[2023-12-27 05:27] LABS: Hematocrit 38.6 % (37.0-47.0); Hemoglobin 12.4 g/dl (12.0-16.0); Mean Corpuscular HGB Conc 32.1 g/dl (31.0-35.0); Mean Corpuscular Hemoglobin 27.4 pg (27.0-33.0); Mean Corpuscular Volume 85.4 fL (80.0-98.0); Mean Platelet Volume 10.4 fL (9.4-12.3); Platelet Count 283 X10*3/uL (160-400); Red Blood Count 4.52 X10*6/uL (4.20-5.50); Red Cell Distribution Width 13.3 % (11.0-16.0); White Blood Count 8.6 X10*3/uL (4.8-10.8)
[2023-12-27 05:45] LABS: Anion Gap 9 (12-20); Blood Urea Nitrogen 7 mg/dL (9-16); Calcium 8.7 mg/dL (8.4-10.2); Carbon Dioxide 28 mmol/L (22-29); Chloride 106 mmol/L (96-108); Creatinine Clr Calc Pharmacy 105.6; Estimated Glomerular Filt Rate > 60; Glucose Random 145 mg/dL (60-115); Potassium 3.5 mmol/L (3.3-5.1); Sodium 139 mmol/L (135-145)
[2023-12-27] MEDS: Omeprazole 20 MG CAPSULE.DR PO (05:55)
[2023-12-27 07:29] VITALS: BP 134/66; PULSE 76; RESP 16; TEMP 36.2; O2SAT 97
[2023-12-27 07:34] LABS: Glucose, Whole Blood 133 mg/dL (60-115)
[2023-12-27] MEDS: Dextroamphetamine/Amphetamine XR 10 MG CAP.ER.24H 20 MG PO (07:53)
[2023-12-27] MEDS: Potassium Chloride ER 10 MEQ TABLET.ER PO (07:53)
[2023-12-27] MEDS: 0.9 % Sodium Chloride Flush 3 ML SYRINGE IVFLUSH ×3 (07:53→20:12)
[2023-12-27] MEDS: Gabapentin 100 MG CAPSULE 200 MG PO ×3 (07:54→20:11)
[2023-12-27] MEDS: Atorvastatin Calcium 20 MG TABLET PO (07:54)
[2023-12-27] MEDS: Aspirin 81 MG TAB.CHEW PO (07:54)
[2023-12-27] MEDS: Clopidogrel Bisulfate 75 MG TABLET PO (07:54)
[2023-12-27] MEDS: Loratadine 10 MG TABLET PO (07:54)
[2023-12-27] MEDS: Fluticasone/Vilanterol 100/25 BLST.W.DEV 1 PUFF INHALE (08:25)
[2023-12-27] MEDS: Tiotropium Bromide 2.5 mcg 1 PUFF/2.5 MCG MIST.INHAL INHALE (08:25)
[2023-12-27 08:27] VITALS: PULSE 80; RESP 16; O2SAT 94
--- NOTE | 2023-12-27 11:10 | P.PNIM_ITS ---
Subjective Subjective Date of Service: 12/27/23 Interval History: This history was taken in Bel[place]ian from the patient. Afebrile. C/o R kidney/flank pain. No N/V. No lightheadedness. Review of Systems Review of Systems: Yes all other systems are reviewed and are negative Physical Exam 2 Vital Signs: Vital Signs: Last Vital Signs Temp 97.1 F 12/27/23 07:29 Pulse 80 12/27/23 08:27 Resp 16 12/27/23 08:27 BP 134/66 12/27/23 07:29 Pulse Ox 97 12/27/23 07:29 O2 Del Method Room Air 12/27/23 07:29 BMI result Body Mass Index 27.8 Gen: in no acute distress HEENT: sclera anicteric, moist mucus membranes Neck: supple Lungs: clear to auscultation bilaterally Heart: regular rate and rhythm, no murmurs Abd: soft, non-tender, non-distended : R CVA tenderness Ext: no edema, L AKA Skin: warm/well-perfused Neuro: alert and oriented x3, no focal findings Psych: appropriate affect Objective Data Active Medications Acetaminophen (Acetaminophen 325 Mg Tablet) 650 mg PO Q6H PRN PRN Reason: Pain, Mild (Pain Scale 1-3) Last Admin: 12/26/23 16:02 Dose: 650 mg Documented By: JAI Albuterol Sulfate (Albuterol Sulfate 90 Mcg 8 Gm Inhaler) 2 puff INHALE RQ4H PRN PRN Reason: wheezing Albuterol Sulfate (Albuterol Sulfate (0.083%) 2.5 Mg/3 Ml Vial.Neb) 2.5 mg INHALE DAILY PRN PRN Reason: wheezing Amphetamine/Dextroamphetamine (Dextroamphetamine/Amphetamine Xr 10 Mg Cap.Er.24h) 20 mg PO DAILY [facility] Last Admin: 12/27/23 07:53 Dose: 20 mg Documented By: SPARKLE Aspirin (Aspirin 81 Mg Tab.Chew) 81 mg PO DAILY [facility] Last Admin: 12/27/23 07:54 Dose: 81 mg Documented By: SPARKLE Atorvastatin Calcium (Atorvastatin Calcium 20 Mg Tablet) 20 mg PO DAILY [facility] Last Admin: 12/27/23 07:54 Dose: 20 mg Documented By: SPARKLE Clopidogrel Bisulfate (Clopidogrel Bisulfate 75 Mg Tablet) 75 mg PO DAILY [facility] Last Admin: 12/27/23 07:54 Dose: 75 mg Documented By: SPARKLE Dextrose (Dextrose 50 % 25 Gm/50 Ml Syringe) 25 gm IVPUSH Q15M PRN; Protocol PRN Reason: per Hypoglycemia Standing Ord. Enoxaparin Sodium (Enoxaparin Sodium 40 Mg/0.4 Ml Syringe) 40 mg SUBCUT Q24H [facility] Last Admin: 12/26/23 20:57 Dose: 40 mg Documented By: JAI Fluticasone/Vilanterol (Fluticasone/Vilanterol 100/25 Blst.W.Dev) 1 puff INHALE DAILY [facility] Last Admin: 12/27/23 08:25 Dose: 1 puff Documented By: PATRICE Gabapentin (Gabapentin 100 Mg Capsule) 200 mg PO TID [facility] Last Admin: 12/27/23 07:54 Dose: 200 mg Documented By: SPARKLE Glucose (Glucose Gel 15 Gm Gel..Gram.) 15 gm PO Q15M PRN; Protocol PRN Reason: per Hypoglycemia Standing Ord. Ceftriaxone Sodium 1 gm/ (Sodium Chloride) 50 mls @ 100 mls/hr IV Q24H [facility] Last Infusion: 12/26/23 20:58 Dose: Infused Documented By: JAI Insulin Human Lispro (Insulin Lispro 100 Unit/Ml 3 Ml Vial) 0 unit SUBCUT QIDACHS [facility]; Protocol Last Admin: 12/27/23 07:53 Dose: Not Given Documented By: SPARKLE Non-Admin Reason: No Insulin Coverage Loratadine (Loratadine 10 Mg Tablet) 10 mg PO DAILY [facility] Last Admin: 12/27/23 07:54 Dose: 10 mg Documented By: SPARKLE Melatonin (Melatonin 3 Mg Tablet) 6 mg PO BEDTIME PRN PRN Reason: Insomnia Montelukast Sodium (Montelukast Sodium 10 Mg Tablet) 10 mg PO BEDTIME [facility] Last Admin: 12/26/23 19:57 Dose: 10 mg Documented By: JAI Omeprazole (Omeprazole 20 Mg Capsule.) 20 mg PO DAILY@0630 [facility] Last Admin: 12/27/23 05:55 Dose: 20 mg Documented By: SULEMAN Ondansetron HCl (Ondansetron Hcl 4 Mg/2 Ml Vial) 4 mg IVPUSH Q8H PRN PRN Reason: Nausea and Vomiting Oxycodone HCl (Oxycodone Hcl Immed Release 5 Mg Tablet) 5 mg PO Q4H PRN PRN Reason: severe pain Last Admin: 12/27/23 07:53 Dose: 5 mg Documented By: SPARKLE Phenazopyridine HCl (Phenazopyridine Hcl 100 Mg Tablet) 100 mg PO TIDWM PRN PRN Reason: Pain, Mild (Pain Scale 1-3) Stop: 12/28/23 04:43 Last Admin: 12/26/23 05:05 Dose: 100 mg Documented By: SONG Potassium Chloride (Potassium Chloride Er 10 Meq Tablet.Er) 1 meq PO DAILY [facility] Last Admin: 12/27/23 07:53 Dose: 1 meq Documented By: SPARKLE Sodium Chloride (0.9 % Sodium Chloride Flush 3 Ml Syringe) 3 ml IVFLUSH QSHIFT [facility] Last Admin: 12/27/23 07:53 Dose: 3 ml Documented By: SPARKLE Tiotropium Socorro (Tiotropium [place] 2.5 Mcg 1 Puff/2.5 Mcg Mist.Inhal) 1 puff INHALE DAILY [facility] Last Admin: 12/27/23 08:25 Dose: 1 puff Documented By: PATRICE Labs 12/27/23 04:53 12/27/23 04:54 Labs: Laboratory Results - last 24 hr 12/26/23 12/26/23 12/26/23 11:51 15:58 20:31 MCV MCH MCHC RDW Plt Count MPV Absolute Nucleated RBC Nucleated RBC % (auto) Anion Gap Estim Creat Clear Calc Estimated GFR POC Glucose 181 H 162 H 175 H Random Glucose Calcium 12/27/23 12/27/23 12/27/23 04:53 04:54 07:19 MCV 85.4 MCH 27.4 MCHC 32.1 RDW 13.3 Plt Count 283 MPV 10.4 Absolute Nucleated RBC 0.000 Nucleated RBC % (auto) 0.0 Anion Gap 9 L Estim Creat Clear Calc 105.6 Estimated GFR > 60 POC Glucose 133 H Random Glucose 145 H Calcium 8.7 Microbiology Microbiology Results: Microbiology 12/25/23 21:07 Urine Culture - Final Urine clean catch - Urine flowers top Escherichia coli 12/25/23 21:06 Blood Culture - Preliminary Blood - Venous No growth after 24 hours. 12/25/23 21:06 Blood Culture - Preliminary Blood - Venous No growth after 24 hours. Assessment and Plan (1) Pyelonephritis: Status: Acute Plan d3 53yo F with PVD s/p AKA, DM2, HTN, GERD, mood disorder presenting with urinary discomfort x2 wk, flank pain, N/V took 3 doses of Bactrim but then developed N/V found to be septic sepsis due to pyelonephritis due to E. coli [R to ampicillin + Bactrim, I to levofloxacin] - continue ceftriaxone 12/25- - lactate normalized hypotension - resolved; monitor off IV fluids HTN - continue to hold valsartan-HCTZ + amlodipine and add back if BP rises PAD - continue ASA/clopidogrel + atorvastatin chronic lung disease - continue home inhalers, montelukast DM2 - hold MTF + dapagliflozin, give basal-bolus insulin mood disorder - hold clonidine GERD - PPI VTE ppx - LMWH dispo - home possibly tomorrow In my clinical judgment, the patient requires continued inpatient hospitalization for the following reasons: BP monitoring given hypotension yesterday Total time managing care of this patient today: 35 minutes. Quality Stroke Does the patient have a stroke diagnosis?: No VTE Prior VTE?: No VTE Risk Level:: Medical - moderate - high VTE Device Contraindication: Treatment Not Indicated VTE Drug Contraindication: N/A - Med Ordered
--- NOTE | 2023-12-27 11:12 | MHC.CM.PN ---
pt lives with father is independent has no services pt has own ride home
[2023-12-27 11:25] LABS: Glucose, Whole Blood 158 mg/dL (60-115)
[2023-12-27] MEDS: Phenazopyridine HCL 100 MG TABLET PO (12:03)
[2023-12-27] MEDS: Insulin Lispro 100 UNIT/ML 3 ML VIAL SUBCUT ×2 (12:05→20:50)
[2023-12-27 15:08] VITALS: BP 138/67; PULSE 79; RESP 18; TEMP 36.3; O2SAT 93
[2023-12-27 16:09] LABS: Glucose, Whole Blood 149 mg/dL (60-115)
[2023-12-27 19:04] VITALS: BP 126/60; PULSE 73; RESP 20; TEMP 36.9; O2SAT 92
[2023-12-27 19:58] LABS: Glucose, Whole Blood 166 mg/dL (60-115)
[2023-12-27] MEDS: cefTRIAXone sodium 1 GM in 0.9 % Sodium Chloride 50 ML IV (20:11)
[2023-12-27] MEDS: Montelukast Sodium 10 MG TABLET PO (20:11)
[2023-12-27] MEDS: Melatonin 3 MG TABLET 6 MG PO (20:50)
--- NOTE | 2023-12-27 22:23 | PC.RT ---
Pt refusing CPAP tonight due to discomfort with machine
[2023-12-28] MEDS: oxyCODONE HCl Immed Release 5 MG TABLET PO ×3 (00:45→09:17)
[2023-12-28] MEDS: Enoxaparin Sodium 40 MG/0.4 ML SYRINGE SUBCUT (00:46)
[2023-12-28 03:46] VITALS: BP 126/69; PULSE 75; RESP 14; TEMP 37.1; O2SAT 93
[2023-12-28] MEDS: Omeprazole 20 MG CAPSULE.DR PO (05:32)
[2023-12-28 07:06] LABS: Anion Gap 12 (12-20); Blood Urea Nitrogen 7 mg/dL (9-16); Calcium 9.3 mg/dL (8.4-10.2); Carbon Dioxide 28 mmol/L (22-29); Chloride 103 mmol/L (96-108); Creatinine Clr Calc Pharmacy 105.6; Estimated Glomerular Filt Rate > 60; Glucose Random 143 mg/dL (60-115); Potassium 3.6 mmol/L (3.3-5.1); Sodium 139 mmol/L (135-145)
[2023-12-28 07:20] VITALS: BP 116/57; PULSE 65; RESP 16; TEMP 36.1; O2SAT 94
[2023-12-28 07:39] LABS: Glucose, Whole Blood 147 mg/dL (60-115)
[2023-12-28] MEDS: Fluticasone/Vilanterol 100/25 BLST.W.DEV 1 PUFF INHALE (08:21)
[2023-12-28] MEDS: Tiotropium Bromide 2.5 mcg 1 PUFF/2.5 MCG MIST.INHAL INHALE (08:21)
[2023-12-28] MEDS: ondansetron HCL 4 MG/2 ML VIAL IVPUSH (08:22)
[2023-12-28 08:25] VITALS: PULSE 84; RESP 18; O2SAT 96
[2023-12-28] MEDS: Clopidogrel Bisulfate 75 MG TABLET PO (08:25)
[2023-12-28] MEDS: Atorvastatin Calcium 20 MG TABLET PO (08:25)
[2023-12-28] MEDS: Potassium Chloride ER 10 MEQ TABLET.ER PO (08:25)
[2023-12-28] MEDS: Aspirin 81 MG TAB.CHEW PO (08:25)
[2023-12-28] MEDS: Loratadine 10 MG TABLET PO (08:25)
[2023-12-28] MEDS: Dextroamphetamine/Amphetamine XR 10 MG CAP.ER.24H 20 MG PO (08:25)
[2023-12-28] MEDS: Gabapentin 100 MG CAPSULE 200 MG PO ×3 (08:25→20:42)
[2023-12-28] MEDS: 0.9 % Sodium Chloride Flush 3 ML SYRINGE IVFLUSH ×3 (08:27→20:03)
--- NOTE | 2023-12-28 09:59 | MHC.CM.PN ---
PT EXPECTED TO DC HOME TODAY WITH NO SERVICES VIA PRIVATE TRANSPORT
--- NOTE | 2023-12-28 10:11 | P.PNIM_ITS ---
Subjective Subjective Date of Service: 12/28/23 Interval History: c/o ongoing severe pain R flank only partially relieved by oxycodone no fever This history was taken in Amharic from the patient. Review of Systems Review of Systems: Yes all other systems are reviewed and are negative Physical Exam 2 Vital Signs: Vital Signs: Last Vital Signs Temp 96.9 F 12/28/23 07:20 Pulse 84 12/28/23 08:25 Resp 18 12/28/23 08:25 BP 116/57 L 12/28/23 07:20 Pulse Ox 94 12/28/23 07:20 O2 Del Method Room Air 12/28/23 07:20 BMI result Body Mass Index 27.8 Gen: in no acute distress HEENT: sclera anicteric, moist mucus membranes Neck: supple Lungs: clear to auscultation bilaterally Heart: regular rate and rhythm, no murmurs Abd: soft, non-tender, non-distended : R CVA tenderness Ext: no edema, L AKA Skin: warm/well-perfused Neuro: alert and oriented x3, no focal findings Psych: appropriate affect Objective Data Active Medications Acetaminophen (Acetaminophen 325 Mg Tablet) 650 mg PO Q6H PRN PRN Reason: Pain, Mild (Pain Scale 1-3) Last Admin: 12/26/23 16:02 Dose: 650 mg Documented By: JAI Albuterol Sulfate (Albuterol Sulfate 90 Mcg 8 Gm Inhaler) 2 puff INHALE RQ4H PRN PRN Reason: wheezing Albuterol Sulfate (Albuterol Sulfate (0.083%) 2.5 Mg/3 Ml Vial.Neb) 2.5 mg INHALE DAILY PRN PRN Reason: wheezing Amphetamine/Dextroamphetamine (Dextroamphetamine/Amphetamine Xr 10 Mg Cap.Er.24h) 20 mg PO DAILY [facility] Last Admin: 12/28/23 08:25 Dose: 20 mg Documented By: FARA Aspirin (Aspirin 81 Mg Tab.Chew) 81 mg PO DAILY [facility] Last Admin: 12/28/23 08:25 Dose: 81 mg Documented By: FARA Atorvastatin Calcium (Atorvastatin Calcium 20 Mg Tablet) 20 mg PO DAILY [facility] Last Admin: 12/28/23 08:25 Dose: 20 mg Documented By: FARA Clopidogrel Bisulfate (Clopidogrel Bisulfate 75 Mg Tablet) 75 mg PO DAILY [facility] Last Admin: 12/28/23 08:25 Dose: 75 mg Documented By: FARA Dextrose (Dextrose 50 % 25 Gm/50 Ml Syringe) 25 gm IVPUSH Q15M PRN; Protocol PRN Reason: per Hypoglycemia Standing Ord. Enoxaparin Sodium (Enoxaparin Sodium 40 Mg/0.4 Ml Syringe) 40 mg SUBCUT Q24H [facility] Last Admin: 12/28/23 00:46 Dose: 40 mg Documented By: AALIYAH Fluticasone/Vilanterol (Fluticasone/Vilanterol 100/25 Blst.W.Dev) 1 puff INHALE DAILY [facility] Last Admin: 12/28/23 08:21 Dose: 1 puff Documented By: YENI Gabapentin (Gabapentin 100 Mg Capsule) 200 mg PO TID [facility] Last Admin: 12/28/23 08:25 Dose: 200 mg Documented By: FARA Glucose (Glucose Gel 15 Gm Gel..Gram.) 15 gm PO Q15M PRN; Protocol PRN Reason: per Hypoglycemia Standing Ord. Ceftriaxone Sodium 1 gm/ (Sodium Chloride) 50 mls @ 100 mls/hr IV Q24H [facility] Last Infusion: 12/27/23 20:45 Dose: Infused Documented By: AALIYAH Insulin Human Lispro (Insulin Lispro 100 Unit/Ml 3 Ml Vial) 0 unit SUBCUT QIDACHS [facility]; Protocol Last Admin: 12/28/23 07:47 Dose: Not Given Documented By: FARA Non-Admin Reason: No Insulin Coverage Loratadine (Loratadine 10 Mg Tablet) 10 mg PO DAILY [facility] Last Admin: 12/28/23 08:25 Dose: 10 mg Documented By: FARA Melatonin (Melatonin 3 Mg Tablet) 6 mg PO BEDTIME PRN PRN Reason: Insomnia Last Admin: 12/27/23 20:50 Dose: 6 mg Documented By: AALIYAH Montelukast Sodium (Montelukast Sodium 10 Mg Tablet) 10 mg PO BEDTIME [facility] Last Admin: 12/27/23 20:11 Dose: 10 mg Documented By: AALIYAH Omeprazole (Omeprazole 20 Mg Capsule.) 20 mg PO DAILY@0630 [facility] Last Admin: 12/28/23 05:32 Dose: 20 mg Documented By: AALIYAH Ondansetron HCl (Ondansetron Hcl 4 Mg/2 Ml Vial) 4 mg IVPUSH Q8H PRN PRN Reason: Nausea and Vomiting Last Admin: 12/28/23 08:22 Dose: 4 mg Documented By: FARA Oxycodone HCl (Oxycodone Hcl Immed Release 5 Mg Tablet) 5 mg PO Q4H PRN PRN Reason: severe pain Last Admin: 12/28/23 09:17 Dose: 5 mg Documented By: FARA Potassium Chloride (Potassium Chloride Er 10 Meq Tablet.Er) 10 meq PO DAILY [facility] Last Admin: 12/28/23 08:25 Dose: 10 meq Documented By: FARA Sodium Chloride (0.9 % Sodium Chloride Flush 3 Ml Syringe) 3 ml IVFLUSH QSHIFT [facility] Last Admin: 12/28/23 08:27 Dose: 3 ml Documented By: FARA Tiotropium Gobles (Tiotropium Gobles 2.5 Mcg 1 Puff/2.5 Mcg Mist.Inhal) 1 puff INHALE DAILY [facility] Last Admin: 12/28/23 08:21 Dose: 1 puff Documented By: YENI Labs 12/27/23 04:53 12/28/23 06:26 Labs: Laboratory Results - last 24 hr 12/27/23 12/27/23 12/27/23 11:12 15:59 19:53 Anion Gap Estim Creat Clear Calc Estimated GFR POC Glucose 158 H 149 H 166 H Random Glucose Calcium 12/28/23 12/28/23 06:26 07:23 Anion Gap 12 Estim Creat Clear Calc 105.6 Estimated GFR > 60 POC Glucose 147 H Random Glucose 143 H Calcium 9.3 D Microbiology Microbiology Results: Microbiology 12/25/23 21:06 Blood Culture - Preliminary Blood - Venous No growth after 48 hours. 12/25/23 21:06 Blood Culture - Preliminary Blood - Venous No growth after 48 hours. 12/25/23 21:07 Urine Culture - Final Urine clean catch - Urine flowers top Escherichia coli Assessment and Plan (1) Pyelonephritis: Status: Acute Plan d4 53yo F with PVD s/p AKA, DM2, HTN, GERD, mood disorder presenting with urinary discomfort x2 wk, flank pain, N/V took 3 doses of Bactrim but then developed N/V found to be septic sepsis due to pyelonephritis due to E. coli [R to ampicillin + Bactrim, I to levofloxacin] - continue ceftriaxone 12/25-, change to cefuroxime upon discharge - lactate normalized - BCx negative - due to persistent pain, will check renal US + consult Urology hypotension - resolved; monitor off IV fluids HTN - continue to hold valsartan-HCTZ + amlodipine and add back if BP becomes elevated PAD - continue ASA/clopidogrel + atorvastatin chronic lung disease - continue home inhalers, montelukast DM2 - hold MTF + dapagliflozin, give basal-bolus insulin mood disorder - hold clonidine GERD - PPI VTE ppx - LMWH dispo - home pending improvement in pain control In my clinical judgment, the patient requires continued inpatient hospitalization for the following reasons: pain control, urologic evaluation Total time managing care of this patient today: 35 minutes. Quality Stroke Does the patient have a stroke diagnosis?: No VTE Prior VTE?: No VTE Risk Level:: Medical - moderate - high VTE Device Contraindication: Treatment Not Indicated VTE Drug Contraindication: N/A - Med Ordered
[2023-12-28 11:32] LABS: Glucose, Whole Blood 181 mg/dL (60-115)
[2023-12-28] MEDS: Insulin Lispro 100 UNIT/ML 3 ML VIAL SUBCUT (11:57)
[2023-12-28] MEDS: Metoclopramide HCl 10 MG/2 ML VIAL 5 MG IVPUSH ×2 (14:04→20:03)
--- NOTE | 2023-12-28 14:05 | PM.UROCN ---
History of Present Illness Consult details Consult date: 12/28/23 Requesting physician: June Cobb Narrative: Radha is a 53 year old female pertinent history of peripheral vascular disease status post left AKA, insulin-dependent diabetes mellitus, essential hypertension, mood disorder, gastroesophageal reflux disease; who has had recurrent UTI, admitted and is on IV Abx for right pyelonephritis. Cat scan notes bilateral kidney stones without hydronephrosis or perinephric stranding. The patient has continued right flank pain and nausea. Renal US today no hydronephrosis. Review of Systems Review of Systems: 10 point ROS negative other than stated in HPI [facility] Past Medical History Medical History Sepsis 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 PAD (peripheral artery disease) Mild acid reflux Raynauds disease Insulin dependent type 2 diabetes mellitus Peripheral neuropathy Non-insulin dependent type 2 diabetes mellitus Hypertension Family History Family History Mother Acute eczema HTN (hypertension) Diabetes Family/Other Cancer Surgical History Surgical History History of esophagogastroduodenoscopy (EGD) Hx of colonoscopy Amputated left leg Social History Social History Household Members: Family Housing: Apartment Do you presently have visiting nurse or other home services: No Alcohol intake: never Patient Tobacco Use Status: Former Tobacco user Quit Date: 2006 Tobacco use type: Cigarette Second Hand Smoke Exposure: No service: No Current occupational status: disabled Meds Allergies Allergy/AdvReac Type Severity Reaction Status Date / Time Iodinated Contrast Media Allergy Unknown HIVES Verified 12/25/23 12:02 [IV DYE, IODINE CONTAINING] Active Medications: Current Medications Acetaminophen (Acetaminophen 325 Mg Tablet) 650 mg PO Q6H PRN PRN Reason: Pain, Mild (Pain Scale 1-3) Last Admin: 12/26/23 16:02 Dose: 650 mg Albuterol Sulfate (Albuterol Sulfate 90 Mcg 8 Gm Inhaler) 2 puff INHALE RQ4H PRN PRN Reason: wheezing Albuterol Sulfate (Albuterol Sulfate (0.083%) 2.5 Mg/3 Ml Vial.Neb) 2.5 mg INHALE DAILY PRN PRN Reason: wheezing Amphetamine/Dextroamphetamine (Dextroamphetamine/Amphetamine Xr 10 Mg Cap.Er.24h) 20 mg PO DAILY [facility] Last Admin: 12/28/23 08:25 Dose: 20 mg Aspirin (Aspirin 81 Mg Tab.Chew) 81 mg PO DAILY [facility] Last Admin: 12/28/23 08:25 Dose: 81 mg Atorvastatin Calcium (Atorvastatin Calcium 20 Mg Tablet) 20 mg PO DAILY [facility] Last Admin: 12/28/23 08:25 Dose: 20 mg Clopidogrel Bisulfate (Clopidogrel Bisulfate 75 Mg Tablet) 75 mg PO DAILY [facility] Last Admin: 12/28/23 08:25 Dose: 75 mg Dextrose (Dextrose 50 % 25 Gm/50 Ml Syringe) 25 gm IVPUSH Q15M PRN; Protocol PRN Reason: per Hypoglycemia Standing Ord. Enoxaparin Sodium (Enoxaparin Sodium 40 Mg/0.4 Ml Syringe) 40 mg SUBCUT Q24H [facility] Last Admin: 12/28/23 00:46 Dose: 40 mg Fluticasone/Vilanterol (Fluticasone/Vilanterol 100/25 Blst.W.Dev) 1 puff INHALE DAILY [facility] Last Admin: 12/28/23 08:21 Dose: 1 puff Gabapentin (Gabapentin 100 Mg Capsule) 200 mg PO TID [facility] Last Admin: 12/28/23 08:25 Dose: 200 mg Glucose (Glucose Gel 15 Gm Gel..Gram.) 15 gm PO Q15M PRN; Protocol PRN Reason: per Hypoglycemia Standing Ord. Ceftriaxone Sodium 1 gm/ (Sodium Chloride) 50 mls @ 100 mls/hr IV Q24H [facility] Last Infusion: 12/27/23 20:45 Dose: Infused Insulin Human Lispro (Insulin Lispro 100 Unit/Ml 3 Ml Vial) 0 unit SUBCUT QIDACHS [facility]; Protocol Last Admin: 12/28/23 11:57 Dose: 2 unit Loratadine (Loratadine 10 Mg Tablet) 10 mg PO DAILY [facility] Last Admin: 12/28/23 08:25 Dose: 10 mg Melatonin (Melatonin 3 Mg Tablet) 6 mg PO BEDTIME PRN PRN Reason: Insomnia Last Admin: 12/27/23 20:50 Dose: 6 mg Metoclopramide HCl (Metoclopramide Hcl 10 Mg/2 Ml Vial) 5 mg IVPUSH Q6H PRN PRN Reason: N/V unreliebed by [place] Montelukast Sodium (Montelukast Sodium 10 Mg Tablet) 10 mg PO BEDTIME [facility] Last Admin: 12/27/23 20:11 Dose: 10 mg Omeprazole (Omeprazole 20 Mg Capsule.Dr) 20 mg PO DAILY@0630 [facility] Last Admin: 12/28/23 05:32 Dose: 20 mg Ondansetron HCl (Ondansetron Hcl 4 Mg/2 Ml Vial) 4 mg IVPUSH Q8H PRN PRN Reason: Nausea and Vomiting Last Admin: 12/28/23 08:22 Dose: 4 mg Oxycodone HCl (Oxycodone Hcl Immed Release 5 Mg Tablet) 5 mg PO Q4H PRN PRN Reason: severe pain Last Admin: 12/28/23 09:17 Dose: 5 mg Potassium Chloride (Potassium Chloride Er 10 Meq Tablet.Er) 10 meq PO DAILY [facility] Last Admin: 12/28/23 08:25 Dose: 10 meq Sodium Chloride (0.9 % Sodium Chloride Flush 3 Ml Syringe) 3 ml IVFLUSH QSHIFT [facility] Last Admin: 12/28/23 08:27 Dose: 3 ml Tiotropium [place] (Tiotropium [place] 2.5 Mcg 1 Puff/2.5 Mcg Mist.Inhal) 1 puff INHALE DAILY [facility] Last Admin: 12/28/23 08:21 Dose: 1 puff Home Medications Medication Instructions Recorded Confirmed Last Taken Type insulin lispro 100 unit/mL 20 unit subcut TID 10/20/22 12/26/23 12/25/23 History subcutaneous pen montelukast 10 mg tablet 1 tab PO QPM 10/20/22 12/26/23 12/23/23 History potassium chloride 10 mEq 1 tab PO DAILY 10/20/22 12/26/23 12/23/23 History tablet,extended release valsartan 320 1 tab PO DAILY 10/20/22 12/26/23 12/23/23 History mg-hydrochlorothiazide 25 mg tablet albuterol sulfate 90 mcg/actuation 2 puff inhalation Q4H PRN wheezing 05/06/23 12/26/23 Unknown History aerosol inhaler (Ventolin HFA) cetirizine 10 mg tablet 10 mg PO QAM 05/06/23 12/26/23 12/23/23 History clonidine HCl 0.1 mg tablet 0.1 mg PO BEDTIME PRN Anxiety 05/06/23 12/26/23 12/23/23 History clopidogrel 75 mg tablet 75 mg PO QAM 05/06/23 12/26/23 12/23/23 History fluticasone 250 mcg-salmeterol 50 1 ea inhalation BID 05/06/23 12/26/23 12/23/23 History mcg/dose blistr powdr for inhalation (Advair Diskus) metformin 500 mg tablet 500 mg PO QAM 05/06/23 12/26/23 12/23/23 History albuterol sulfate 2.5 mg/3 mL 2.5 mg inhalation DAILY PRN 08/08/23 12/26/23 Unknown History (0.083 %) solution for nebulization wheezing atorvastatin 20 mg tablet 20 mg PO QAM 08/08/23 12/26/23 12/23/23 History dapagliflozin propanediol 10 mg 10 mg PO QAM 08/08/23 12/26/23 12/23/23 History tablet (Farxiga) amlodipine 10 mg tablet 10 mg PO BEDTIME 09/05/23 12/26/23 12/23/23 History aspirin 81 mg chewable tablet 1 tab PO QAM 09/05/23 12/26/23 12/23/23 History umeclidinium 62.5 mcg/actuation 1 inh inhalation DAILY 09/05/23 12/26/23 12/23/23 History blister powder for inhalation (Incruse Ellipta) dextroamphetamine-amphetamine ER 1 cap PO QAM 11/25/23 12/26/23 12/23/23 History 20 mg 24hr capsule,extend release (Adderall XR) dulaglutide 0.75 mg/0.5 mL 0.75 mg subcut FR 11/25/23 12/26/23 12/20/23 History subcutaneous pen injector (Trulicity) melatonin 5 mg tablet 5 mg PO BEDTIME 11/25/23 12/26/23 12/23/23 History diclofenac sodium 1 % topical gel 2 g topical QID pain 12/26/23 12/26/23 Unknown History gabapentin 100 mg capsule 200 mg PO TID 12/26/23 12/26/23 12/23/23 History insulin detemir U-100 100 unit/mL 30 unit subcut BEDTIME 12/26/23 12/26/23 12/25/23 History (3 mL) subcutaneous pen multivitamin 1 tab PO DAILY 12/26/23 12/26/23 12/23/23 History Physical Exam Vital Signs: Vital Signs: Last Vital Signs Temp 96.9 F 12/28/23 07:20 Pulse 84 12/28/23 08:25 Resp 18 12/28/23 08:25 BP 116/57 L 12/28/23 07:20 Pulse Ox 94 12/28/23 07:20 O2 Del Method Room Air 12/28/23 07:20 BMI result Body Mass Index 27.8 Results Labs 12/27/23 04:53 12/28/23 06:26 Labs: Abnormal lab results 12/27/23 12/27/23 12/28/23 Range/Units 15:59 19:53 06:26 BUN 7 L (9-16) mg/dL POC Glucose 149 H 166 H (60-115) mg/dL Random Glucose 143 H (60-115) mg/dL 12/28/23 12/28/23 Range/Units 07:23 11:28 BUN (9-16) mg/dL POC Glucose 147 H 181 H (60-115) mg/dL Random Glucose (60-115) mg/dL BMP 12/28/23 06:26 Sodium 139 Potassium 3.6 Chloride 103 Carbon Dioxide 28 BUN 7 L Creatinine 0.68 Calcium 9.3 D Urine 12/25/23 Range/Units 20:27 Urine Color Yellow Urine Appearance Cloudy Urine pH 6.0 (5.0-9.0) Ur Specific [place] >= 1.030 H (1.005-1.025) Urine Protein Negative (Neg-Trace) mg/dL Urine Glucose (UA) >=1000 H (Negative) mg/dL Collected: 12/25/23 Status: COMP Req#: [id number] Received: 12/25/23 Source: [facility] Carlos Desc: Urine flowers Subm Dr: Rosita Weller Ordered: Urine Culture Procedure Result Verified Urine Culture Final 12/27/23 Organism 1 Escherichia coli Quant > 100,000 cfu/mL E coli M.I.C. RX --------- --- Ampicillin >=32 R Ceftriaxone <=0.25 S Gentamicin <=1 S Levofloxacin 1 I Nitrofurantoin <=16 S Trimethoprim/Sulfamethoxazole >=320 R Imaging Additional studies: Date of Service: 12/28/23 EXAMINATION: US RETROPERITONEAL LIMITED (RENAL ONLY) CLINICAL INFORMATION: Persistent pain, pyelonephritis. COMPARISON: Prior ultrasound July 2023 TECHNIQUE: Bilateral renal ultrasound performed. FINDINGS: RIGHT KIDNEY: 11.7 x 6.2 x 5.5 cm (SAG x AP x TRV). Simple cyst upper pole 1.8 x 1.8 x 1.5 cm echogenic structure in the right kidney possibly a nonobstructing stone measure 3 mm middle pole. The kidney is normal in size, contour, and echogenicity. Renal cortical thickness is normal. LEFT KIDNEY: 11.7 x 5.3 x 6.3 cm (SAG x AP x TRV). There is a simple cyst middle pole 1.2 x 1.3 x 1.6 cm. The kidney is normal in size, contour, and echogenicity. Renal cortical thickness is normal. No hydronephrosis. IMPRESSION: 1. No ultrasound evidence of renal obstruction or hydronephrosis. 2. Echogenic structure in the right kidney possibly a nonobstructing stone. 3. Redemonstration of bilateral simple renal cysts, these are likely benign, no follow-up imaging is recommended. Date of Service: 12/25/23 CT ABDOMEN AND PELVIS WITHOUT CONTRAST CLINICAL INFORMATION: Right flank pain COMPARISON: Previous CT of the abdomen and pelvis July 2023 TECHNIQUE: Multidetector volumetric imaging was performed from the superior aspect of the liver through the pubic symphysis. Sagittal and coronal reformatted images were obtained on the technologist's workstation. This CT examination was performed using dose optimization techniques as appropriate, variously including the following: *Automated exposure control *Adjustment of mA and/or kV according to patient size (this includes techniques or standardized protocols for targeted exams where dose is matched to indication/reason for exam; i.e. extremities or head) *Use of iterative reconstruction technique DLP: 638 mGy-cm FINDINGS: LUNG BASES: The visualized lung bases are unremarkable. LIVER, GALLBLADDER, AND BILIARY TREE: The liver is enlarged, right lobe measuring 20 cm in length. No focal hepatic lesion or biliary ductal dilatation is present. The gallbladder has been removed. PANCREAS: Unremarkable. SPLEEN: Unremarkable. ADRENAL GLANDS: Unremarkable. KIDNEYS AND URETERS: The kidneys are normal in size, shape, and attenuation. Small bilateral renal stones. No hydronephrosis. Small bilateral renal cysts. No imaging follow-up recommended. No ureteral dilatation or ureteral stone. BLADDER: Not well evaluated GASTROINTESTINAL TRACT: The small and large bowel are unremarkable. The appendix is not seen probably been removed.. ABDOMINAL WALL: No significant hernia is appreciated. LYMPH NODES: Normal. VASCULAR: Unremarkable. PELVIC VISCERA: Enlarged fibroid uterus. OSSEOUS STRUCTURES: Postsurgical changes changes fusion hardware from old to S1. Degenerative changes at L3-L4. Spinal stimulator. Stable increased sclerosis in the right iliac bone near the sacroiliac joint. IMPRESSION: Small nonobstructing bilateral renal stones. No hydronephrosis. Enlarged fibroid uterus. Fleischner guidelines were followed. Assessment and Plan (1) Pyelonephritis: Status: Acute (2) Flank pain: Status: Acute (3) Urinary tract infection: Status: Inactive Plan Urine c/s - ecoli sensitive to Ceftrioxone blood c/s negative No surgical intervention planned at this time Recommend try toradol for pain 15 mg q6 h- q8 h cont x 3 doses then prn Consider reglan scheduled regimen Procedures Date of Service Date of Service: 12/28/23
[2023-12-28] MEDS: oxyCODONE HCl Immed Release 5 MG TABLET 10 MG PO ×2 (15:21→20:42)
[2023-12-28 15:38] VITALS: BP 106/58; PULSE 68; RESP 15; TEMP 36.6; O2SAT 92
[2023-12-28 16:38] LABS: Glucose, Whole Blood 148 mg/dL (60-115)
[2023-12-28 19:52] VITALS: BP 122/68; PULSE 73; RESP 17; TEMP 36.5; O2SAT 95
[2023-12-28] MEDS: cefTRIAXone sodium 1 GM in 0.9 % Sodium Chloride 50 ML IV (20:03)
[2023-12-28 20:21] VITALS: O2SAT 95
[2023-12-28 20:26] LABS: Glucose, Whole Blood 155 mg/dL (60-115)
[2023-12-28] MEDS: Melatonin 3 MG TABLET 6 MG PO (20:42)
[2023-12-28] MEDS: Montelukast Sodium 10 MG TABLET PO (20:42)
[2023-12-29 01:25] VITALS: BP 116/56; PULSE 66; RESP 17; TEMP 36.2; O2SAT 95
[2023-12-29] MEDS: ondansetron HCL 4 MG/2 ML VIAL IVPUSH ×3 (01:26→21:55)
[2023-12-29] MEDS: Enoxaparin Sodium 40 MG/0.4 ML SYRINGE SUBCUT (01:26)
[2023-12-29] MEDS: oxyCODONE HCl Immed Release 5 MG TABLET 10 MG PO ×3 (01:26→15:17)
[2023-12-29 07:03] VITALS: BP 105/58; PULSE 72; RESP 17; TEMP 36.1; O2SAT 91
[2023-12-29 07:08] LABS: Glucose, Whole Blood 124 mg/dL (60-115)
[2023-12-29] MEDS: Omeprazole 20 MG CAPSULE.DR PO (07:26)
[2023-12-29] MEDS: 0.9 % Sodium Chloride Flush 3 ML SYRINGE IVFLUSH (07:26)
[2023-12-29] MEDS: Metoclopramide HCl 10 MG/2 ML VIAL 5 MG IVPUSH ×2 (07:26→15:17)
--- NOTE | 2023-12-29 07:42 | HO.PM.IMPN ---
Subjective Subjective Date of Service: 12/29/23 Interval History: Seen in follow up clinical pyelonephritis, sepsis Interval history: Afebrile. Still reports R flank pain, not tolerating PO, vomiting x3 since last night. Review of Systems Review of Systems: Yes all other systems are reviewed and are negative Physical Exam Vital Signs: Vital Signs: Last Vital Signs Temp 97 F 12/29/23 07:03 Pulse 72 12/29/23 07:03 Resp 17 12/29/23 07:03 BP 105/58 L 12/29/23 07:03 Pulse Ox 91 L 12/29/23 07:03 O2 Del Method Room Air 12/29/23 07:03 BMI result Body Mass Index 27.8 Constitutional - Awake and Alert, No apparent distress Eyes - PERRLA, EOMI Cardiovascular - S1S2, RRR, No edema Respiratory - Normal lung expansion, Normal respiratory effort, No respiratory distress, CTA bilaterally Gastrointestinal - NT / ND; +BS; No rebound or guarding - No CVA tenderness Extremities - no calf tenderness bilaterally, no swelling Skin - Warm/Dry Neurological - Alert & oriented x3 Psychological - Appropriate affect Objective Data Active Medications Acetaminophen (Acetaminophen 325 Mg Tablet) 650 mg PO Q6H PRN PRN Reason: Pain, Mild (Pain Scale 1-3) Last Admin: 12/26/23 16:02 Dose: 650 mg Documented By: JAI Albuterol Sulfate (Albuterol Sulfate 90 Mcg 8 Gm Inhaler) 2 puff INHALE RQ4H PRN PRN Reason: wheezing Albuterol Sulfate (Albuterol Sulfate (0.083%) 2.5 Mg/3 Ml Vial.Neb) 2.5 mg INHALE DAILY PRN PRN Reason: wheezing Amphetamine/Dextroamphetamine (Dextroamphetamine/Amphetamine Xr 10 Mg Cap.Er.24h) 20 mg PO DAILY [facility] Last Admin: 12/28/23 08:25 Dose: 20 mg Documented By: FARA Aspirin (Aspirin 81 Mg Tab.Chew) 81 mg PO DAILY [facility] Last Admin: 12/28/23 08:25 Dose: 81 mg Documented By: FARA Atorvastatin Calcium (Atorvastatin Calcium 20 Mg Tablet) 20 mg PO DAILY [facility] Last Admin: 12/28/23 08:25 Dose: 20 mg Documented By: FARA Clopidogrel Bisulfate (Clopidogrel Bisulfate 75 Mg Tablet) 75 mg PO DAILY [facility] Last Admin: 12/28/23 08:25 Dose: 75 mg Documented By: FARA Dextrose (Dextrose 50 % 25 Gm/50 Ml Syringe) 25 gm IVPUSH Q15M PRN; Protocol PRN Reason: per Hypoglycemia Standing Ord. Enoxaparin Sodium (Enoxaparin Sodium 40 Mg/0.4 Ml Syringe) 40 mg SUBCUT Q24H [facility] Last Admin: 12/29/23 01:26 Dose: 40 mg Documented By: AALIYAH Fluticasone/Vilanterol (Fluticasone/Vilanterol 100/25 Blst.W.Dev) 1 puff INHALE DAILY [facility] Last Admin: 12/28/23 08:21 Dose: 1 puff Documented By: YENI Gabapentin (Gabapentin 100 Mg Capsule) 200 mg PO TID [facility] Last Admin: 12/28/23 20:42 Dose: 200 mg Documented By: AALIYAH Glucose (Glucose Gel 15 Gm Gel..Gram.) 15 gm PO Q15M PRN; Protocol PRN Reason: per Hypoglycemia Standing Ord. Ceftriaxone Sodium 1 gm/ (Sodium Chloride) 50 mls @ 100 mls/hr IV Q24H [facility] Last Infusion: 12/28/23 20:38 Dose: Infused Documented By: AALIYAH Insulin Human Lispro (Insulin Lispro 100 Unit/Ml 3 Ml Vial) 0 unit SUBCUT QIDACHS [facility]; Protocol Last Admin: 12/29/23 07:17 Dose: Not Given Documented By: FARA Non-Admin Reason: No Insulin Coverage Ketorolac Tromethamine (Ketorolac Tromethamine 15 Mg/Ml Vial) 15 mg IVPUSH Q6H PRN PRN Reason: severe pain Loratadine (Loratadine 10 Mg Tablet) 10 mg PO DAILY [facility] Last Admin: 12/28/23 08:25 Dose: 10 mg Documented By: FARA Melatonin (Melatonin 3 Mg Tablet) 6 mg PO BEDTIME PRN PRN Reason: Insomnia Last Admin: 12/28/23 20:42 Dose: 6 mg Documented By: AALIYAH Metoclopramide HCl (Metoclopramide Hcl 10 Mg/2 Ml Vial) 5 mg IVPUSH Q6H PRN PRN Reason: N/V unreliebed by [place] Last Admin: 12/29/23 07:26 Dose: 5 mg Documented By: FARA Montelukast Sodium (Montelukast Sodium 10 Mg Tablet) 10 mg PO BEDTIME [facility] Last Admin: 12/28/23 20:42 Dose: 10 mg Documented By: AALIYAH Omeprazole (Omeprazole 20 Mg Capsule.Dr) 20 mg PO DAILY@0630 [facility] Last Admin: 12/29/23 07:26 Dose: 20 mg Documented By: FARA Ondansetron HCl (Ondansetron Hcl 4 Mg/2 Ml Vial) 4 mg IVPUSH Q8H PRN PRN Reason: Nausea and Vomiting Last Admin: 12/29/23 01:26 Dose: 4 mg Documented By: AALIYAH Oxycodone HCl (Oxycodone Hcl Immed Release 5 Mg Tablet) 10 mg PO Q4H PRN PRN Reason: severe pain Last Admin: 12/29/23 07:26 Dose: 10 mg Documented By: FARA Potassium Chloride (Potassium Chloride Er 10 Meq Tablet.Er) 10 meq PO DAILY [facility] Last Admin: 12/28/23 08:25 Dose: 10 meq Documented By: FARA Sodium Chloride (0.9 % Sodium Chloride Flush 3 Ml Syringe) 3 ml IVFLUSH QSHIFT [facility] Last Admin: 12/29/23 07:26 Dose: 3 ml Documented By: AFRA Tiotropium [place] (Tiotropium [place] 2.5 Mcg 1 Puff/2.5 Mcg Mist.Inhal) 1 puff INHALE DAILY [facility] Last Admin: 12/28/23 08:21 Dose: 1 puff Documented By: YENI Labs 12/27/23 04:53 12/28/23 06:26 Labs: Laboratory Results - last 24 hr 12/28/23 12/28/23 12/28/23 11:28 16:27 20:06 POC Glucose 181 H 148 H 155 H 12/29/23 07:02 POC Glucose 124 H Assessment and Plan (1) Pyelonephritis: Status: Acute Plan d5 53yo F with PVD s/p AKA, DM2, HTN, GERD, mood disorder presenting with urinary discomfort x2 wk, flank pain, N/V took 3 doses of Bactrim but then developed N/V found to be septic sepsis due to pyelonephritis due to E. coli [R to ampicillin + Bactrim, I to levofloxacin] - continue ceftriaxone 12/25-, change to cefuroxime upon discharge - lactate normalized - BCx negative - Renal U/S negative for obstruction or hydronephrosis, non-obstructing R stone - Urology input appreciated- no surgical intervention at this time - Torodol 15mg ingrid x 3 dose, then prn per urology - continue antiemetics, bland diet, advance as tolerated hypotension - resolved; monitor off IV fluids HTN - continue to hold valsartan-HCTZ + amlodipine and add back if BP becomes elevated PAD - continue ASA/clopidogrel + atorvastatin chronic lung disease - continue home inhalers, montelukast DM2 - hold MTF + dapagliflozin, give basal-bolus insulin mood disorder - hold clonidine GERD - PPI VTE ppx - LMWH dispo - home pending improvement in pain control In my clinical judgment, the patient requires continued inpatient hospitalization for the following reasons: pain control, PO intolerance Total time managing care of this patient today: 35 minutes. Quality Stroke Does the patient have a stroke diagnosis?: No VTE Prior VTE?: No VTE Risk Level:: Medical - moderate - high VTE Device Contraindication: Treatment Not Indicated VTE Drug Contraindication: N/A - Med Ordered
[2023-12-29] MEDS: Fluticasone/Vilanterol 100/25 BLST.W.DEV 1 PUFF INHALE (08:04)
[2023-12-29] MEDS: Tiotropium Bromide 2.5 mcg 1 PUFF/2.5 MCG MIST.INHAL INHALE (08:04)
[2023-12-29 08:06] VITALS: PULSE 72; RESP 18; O2SAT 95
[2023-12-29] MEDS: Atorvastatin Calcium 20 MG TABLET PO (08:30)
[2023-12-29] MEDS: Aspirin 81 MG TAB.CHEW PO (08:30)
[2023-12-29] MEDS: Clopidogrel Bisulfate 75 MG TABLET PO (08:30)
[2023-12-29] MEDS: Dextroamphetamine/Amphetamine XR 10 MG CAP.ER.24H 20 MG PO (08:30)
[2023-12-29] MEDS: Gabapentin 100 MG CAPSULE 200 MG PO ×3 (08:30→21:55)
[2023-12-29] MEDS: Potassium Chloride ER 10 MEQ TABLET.ER PO (08:30)
[2023-12-29] MEDS: Loratadine 10 MG TABLET PO (08:30)
[2023-12-29 11:13] LABS: Glucose, Whole Blood 135 mg/dL (60-115)
[2023-12-29 12:38] LABS: MANUAL DIFF FLAG NO
[2023-12-29 12:42] LABS: Basophils Percent Auto 0.2 % (0-2); Eosinophils Absolute Auto 0.3 X10*3/uL (0.0-0.4); Eosinophils Percent Auto 3.4 % (0-4); Hematocrit 40.9 % (37.0-47.0); Hemoglobin 13.3 g/dl (12.0-16.0); Imm Gran Abs Auto 0.03 X10*3/uL (0.00-0.03); Imm Gran Pct Auto 0.4 % (0.0-0.4); Lymphocytes Absolute Auto 2.5 X10*3/uL (1.2-4.9); Lymphocytes Percent Auto 28.8 % (20-40); Mean Corpuscular HGB Conc 32.5 g/dl (31.0-35.0); Mean Corpuscular Hemoglobin 27.3 pg (27.0-33.0); Mean Platelet Volume 9.7 fL (9.4-12.3); Monocytes Absolute Auto 0.7 X10*3/uL (0.1-1.2); Monocytes Percent Auto 7.6 % (2-11); Neutrophils Absolute Auto 5.1 x10*3/uL (2.0-8.3); Neutrophils Percent Auto 59.6 % (45-73); Platelet Count 302 X10*3/uL (160-400); Red Blood Count 4.87 X10*6/uL (4.20-5.50); Red Cell Distribution Width 13.3 % (11.0-16.0); White Blood Count 8.5 X10*3/uL (4.8-10.8)
[2023-12-29 12:54] LABS: Anion Gap 11 (12-20); Blood Urea Nitrogen 7 mg/dL (9-16); Calcium 9.2 mg/dL (8.4-10.2); Carbon Dioxide 28 mmol/L (22-29); Chloride 105 mmol/L (96-108); Creatinine Clr Calc Pharmacy 99.7; Estimated Glomerular Filt Rate > 60; Glucose Random 139 mg/dL (60-115); Potassium 3.9 mmol/L (3.3-5.1); Sodium 140 mmol/L (135-145)
[2023-12-29] MEDS: Ketorolac Tromethamine 15 MG/ML VIAL IVPUSH ×2 (13:01→17:24)
[2023-12-29 15:17] VITALS: BP 126/67; PULSE 76; RESP 18; TEMP 36.3; O2SAT 93
[2023-12-29 16:32] LABS: Glucose, Whole Blood 150 mg/dL (60-115)
[2023-12-29 19:14] VITALS: BP 137/96; PULSE 84; RESP 18; TEMP 36; O2SAT 95
[2023-12-29 20:41] LABS: Glucose, Whole Blood 125 mg/dL (60-115)
[2023-12-29] MEDS: Montelukast Sodium 10 MG TABLET PO (21:55)
[2023-12-29] MEDS: cefTRIAXone sodium 1 GM in 0.9 % Sodium Chloride 50 ML IV (21:55)
[2023-12-30] MEDS: Enoxaparin Sodium 40 MG/0.4 ML SYRINGE SUBCUT ×2 (00:54→21:19)
[2023-12-30] MEDS: Ketorolac Tromethamine 15 MG/ML VIAL IVPUSH ×2 (00:55→16:14)
[2023-12-30] MEDS: Metoclopramide HCl 10 MG/2 ML VIAL 5 MG IVPUSH ×2 (00:58→12:34)
[2023-12-30 04:00] VITALS: BP 128/62; PULSE 69; RESP 16; TEMP 36.1; O2SAT 94
[2023-12-30 05:55] LABS: Anion Gap 11 (12-20); Blood Urea Nitrogen 8 mg/dL (9-16); Calcium 9.2 mg/dL (8.4-10.2); Carbon Dioxide 26 mmol/L (22-29); Chloride 106 mmol/L (96-108); Estimated Glomerular Filt Rate > 60; Glucose Random 122 mg/dL (60-115); Potassium 3.8 mmol/L (3.3-5.1); Sodium 139 mmol/L (135-145)
[2023-12-30] MEDS: Omeprazole 20 MG CAPSULE.DR PO (05:58)
[2023-12-30] MEDS: ondansetron HCL 4 MG/2 ML VIAL IVPUSH ×2 (05:58→21:19)
[2023-12-30] MEDS: 0.9 % Sodium Chloride Flush 3 ML SYRINGE IVFLUSH ×3 (05:59→19:58)
[2023-12-30 06:55] VITALS: BP 121/63; PULSE 77; RESP 18; TEMP 36.6; O2SAT 92
[2023-12-30] MEDS: Tiotropium Bromide 2.5 mcg 1 PUFF/2.5 MCG MIST.INHAL INHALE (07:30)
[2023-12-30 07:32] VITALS: PULSE 76; RESP 18; O2SAT 95
--- NOTE | 2023-12-30 07:36 | P.PNIM_ITS ---
Subjective Subjective Date of Service: 12/30/23 Interval History: Seen in follow up clinical pyelonephritis, sepsis Interval history: Afebrile. Still reports R flank pain, not tolerating PO, vomiting multiple times last night. Tolerating clears, but solids Review of Systems Review of Systems: Yes all other systems are reviewed and are negative Physical Exam 2 Vital Signs: Vital Signs: Last Vital Signs Temp 98 F 12/30/23 06:55 Pulse 76 12/30/23 07:32 Resp 18 12/30/23 07:32 BP 121/63 12/30/23 06:55 Pulse Ox 92 12/30/23 06:55 O2 Del Method Room Air 12/30/23 06:55 BMI result Body Mass Index 27.8 Constitutional - Awake and Alert, No apparent distress Eyes - PERRLA, EOMI Cardiovascular - S1S2, RRR, No edema Respiratory - Normal lung expansion, Normal respiratory effort, No respiratory distress, CTA bilaterally Gastrointestinal - RLQ, RUQ ttp without guarding or rebound. ND; +BS - mild right cva ttp Extremities - no calf tenderness bilaterally, no swelling Skin - Warm/Dry Neurological - Alert & oriented x3 Psychological - Appropriate affect Objective Data Active Medications Acetaminophen (Acetaminophen 325 Mg Tablet) 650 mg PO Q6H PRN PRN Reason: Pain, Mild (Pain Scale 1-3) Last Admin: 12/26/23 16:02 Dose: 650 mg Documented By: JAI Albuterol Sulfate (Albuterol Sulfate 90 Mcg 8 Gm Inhaler) 2 puff INHALE RQ4H PRN PRN Reason: wheezing Albuterol Sulfate (Albuterol Sulfate (0.083%) 2.5 Mg/3 Ml Vial.Neb) 2.5 mg INHALE DAILY PRN PRN Reason: wheezing Amphetamine/Dextroamphetamine (Dextroamphetamine/Amphetamine Xr 10 Mg Cap.Er.24h) 20 mg PO DAILY [facility] Last Admin: 12/29/23 08:30 Dose: 20 mg Documented By: FARA Aspirin (Aspirin 81 Mg Tab.Chew) 81 mg PO DAILY [facility] Last Admin: 12/29/23 08:30 Dose: 81 mg Documented By: FARA Atorvastatin Calcium (Atorvastatin Calcium 20 Mg Tablet) 20 mg PO DAILY [facility] Last Admin: 12/29/23 08:30 Dose: 20 mg Documented By: FARA Clopidogrel Bisulfate (Clopidogrel Bisulfate 75 Mg Tablet) 75 mg PO DAILY [facility] Last Admin: 12/29/23 08:30 Dose: 75 mg Documented By: FARA Dextrose (Dextrose 50 % 25 Gm/50 Ml Syringe) 25 gm IVPUSH Q15M PRN; Protocol PRN Reason: per Hypoglycemia Standing Ord. Enoxaparin Sodium (Enoxaparin Sodium 40 Mg/0.4 Ml Syringe) 40 mg SUBCUT Q24H [facility] Last Admin: 12/30/23 00:54 Dose: 40 mg Documented By: SHANA Fluticasone/Vilanterol (Fluticasone/Vilanterol 100/25 Blst.W.Dev) 1 puff INHALE DAILY [facility] Last Admin: 12/29/23 08:04 Dose: 1 puff Documented By: YENI Gabapentin (Gabapentin 100 Mg Capsule) 200 mg PO TID [facility] Last Admin: 12/29/23 21:55 Dose: 200 mg Documented By: SHANA Glucose (Glucose Gel 15 Gm Gel..Gram.) 15 gm PO Q15M PRN; Protocol PRN Reason: per Hypoglycemia Standing Ord. Ceftriaxone Sodium 1 gm/ (Sodium Chloride) 50 mls @ 100 mls/hr IV Q24H [facility] Last Infusion: 12/29/23 22:25 Dose: Infused Documented By: SHANA Insulin Human Lispro (Insulin Lispro 100 Unit/Ml 3 Ml Vial) 0 unit SUBCUT QIDACHS [facility]; Protocol Last Admin: 12/29/23 21:13 Dose: Not Given Documented By: SHANA Non-Admin Reason: No Insulin Coverage Ketorolac Tromethamine (Ketorolac Tromethamine 15 Mg/Ml Vial) 15 mg IVPUSH Q6H PRN PRN Reason: severe pain Loratadine (Loratadine 10 Mg Tablet) 10 mg PO DAILY [facility] Last Admin: 12/29/23 08:30 Dose: 10 mg Documented By: FARA Melatonin (Melatonin 3 Mg Tablet) 6 mg PO BEDTIME PRN PRN Reason: Insomnia Last Admin: 12/28/23 20:42 Dose: 6 mg Documented By: AALIYAH Metoclopramide HCl (Metoclopramide Hcl 10 Mg/2 Ml Vial) 5 mg IVPUSH Q6H PRN PRN Reason: N/V unreliebed by [place] Last Admin: 12/30/23 00:58 Dose: 5 mg Documented By: SHANA Montelukast Sodium (Montelukast Sodium 10 Mg Tablet) 10 mg PO BEDTIME [facility] Last Admin: 12/29/23 21:55 Dose: 10 mg Documented By: SHANA Omeprazole (Omeprazole 20 Mg Capsule.Dr) 20 mg PO DAILY@0630 [facility] Last Admin: 12/30/23 05:58 Dose: 20 mg Documented By: SHANA Ondansetron HCl (Ondansetron Hcl 4 Mg/2 Ml Vial) 4 mg IVPUSH Q8H PRN PRN Reason: Nausea and Vomiting Last Admin: 12/30/23 05:58 Dose: 4 mg Documented By: SHANA Oxycodone HCl (Oxycodone Hcl Immed Release 5 Mg Tablet) 5 mg PO Q4H PRN PRN Reason: severe pain Potassium Chloride (Potassium Chloride Er 10 Meq Tablet.Er) 10 meq PO DAILY [facility] Last Admin: 12/29/23 08:30 Dose: 10 meq Documented By: FARA Sodium Chloride (0.9 % Sodium Chloride Flush 3 Ml Syringe) 3 ml IVFLUSH QSHIFT [facility] Last Admin: 12/30/23 05:59 Dose: 3 ml Documented By: SHANA Tiotropium [place] (Tiotropium [place] 2.5 Mcg 1 Puff/2.5 Mcg Mist.Inhal) 1 puff INHALE DAILY [facility] Last Admin: 12/30/23 07:30 Dose: 1 puff Documented By: BLASCL Labs 12/29/23 12:36 12/30/23 05:01 Labs: Laboratory Results - last 24 hr 12/29/23 12/29/23 12/29/23 11:04 12:36 16:11 MCV 84.0 MCH 27.3 MCHC 32.5 RDW 13.3 Plt Count 302 MPV 9.7 Immature Gran % (Auto) 0.4 Neut % (Auto) 59.6 Lymph % (Auto) 28.8 [place] % (Auto) 7.6 Eos % (Auto) 3.4 Baso % (Auto) 0.2 Lymph # (Auto) 2.5 [place] # (Auto) 0.7 Eos # (Auto) 0.3 Baso # (Auto) 0.0 Abs Immat Gran (auto) 0.03 Absolute Neuts (auto) 5.1 Absolute Nucleated RBC 0.000 Nucleated RBC % (auto) 0.0 Hold Purple Top Anion Gap 11 L Estim Creat Clear Calc 99.7 Estimated GFR > 60 POC Glucose 135 H 150 H Random Glucose 139 H Calcium 9.2 12/29/23 12/30/23 20:33 05:01 MCV MCH MCHC RDW Plt Count MPV Immature Gran % (Auto) Neut % (Auto) Lymph % (Auto) [place] % (Auto) Eos % (Auto) Baso % (Auto) Lymph # (Auto) [place] # (Auto) Eos # (Auto) Baso # (Auto) Abs Immat Gran (auto) Absolute Neuts (auto) Absolute Nucleated RBC Nucleated RBC % (auto) Hold Purple Top SEE NOTE Anion Gap 11 L Estim Creat Clear Calc 104.0 Estimated GFR > 60 POC Glucose 125 H Random Glucose 122 H Calcium 9.2 Assessment and Plan (1) Pyelonephritis: Status: Acute Plan d5 53yo F with PVD s/p AKA, DM2, HTN, GERD, mood disorder presenting with urinary discomfort x2 wk, flank pain, N/V took 3 doses of Bactrim but then developed N/V found to be septic sepsis due to pyelonephritis due to E. coli [R to ampicillin + Bactrim, I to levofloxacin] - continue ceftriaxone 12/25-, change to cefuroxime upon discharge - lactate normalized - BCx negative - Renal U/S negative for obstruction or hydronephrosis, non-obstructing R stone - Urology input appreciated- no surgical intervention at this time - Torodol 15mg ingrid x 3 dose, then prn per urology - continue antiemetics - tolerating solids, diet changed to clear liquids - due to persistent symtpoms, CT abd/pelvis w/ contrast ordered hypotension - resolved; monitor off IV fluids HTN - continue to hold valsartan-HCTZ + amlodipine and add back if BP becomes elevated PAD - continue ASA/clopidogrel + atorvastatin chronic lung disease - continue home inhalers, montelukast DM2 - hold MTF + dapagliflozin, give basal-bolus insulin mood disorder - hold clonidine GERD - PPI VTE ppx - LMWH dispo - home pending improvement in pain control In my clinical judgment, the patient requires continued inpatient hospitalization for the following reasons: pain control, PO intolerance Total time managing care of this patient today: 35 minutes. Quality Stroke Does the patient have a stroke diagnosis?: No VTE Prior VTE?: No VTE Risk Level:: Medical - moderate - high VTE Device Contraindication: Treatment Not Indicated VTE Drug Contraindication: N/A - Med Ordered
[2023-12-30 07:38] LABS: Glucose, Whole Blood 137 mg/dL (60-115)
[2023-12-30] MEDS: Fluticasone/Vilanterol 100/25 BLST.W.DEV 1 PUFF INHALE (07:55)
[2023-12-30] MEDS: Dextroamphetamine/Amphetamine XR 10 MG CAP.ER.24H 20 MG PO (08:11)
[2023-12-30] MEDS: Clopidogrel Bisulfate 75 MG TABLET PO (08:11)
[2023-12-30] MEDS: Potassium Chloride ER 10 MEQ TABLET.ER PO (08:11)
[2023-12-30] MEDS: Gabapentin 100 MG CAPSULE 200 MG PO ×3 (08:11→21:19)
[2023-12-30] MEDS: Loratadine 10 MG TABLET PO (08:11)
[2023-12-30] MEDS: Atorvastatin Calcium 20 MG TABLET PO (08:11)
[2023-12-30] MEDS: 0.9 % Sodium Chloride 1,000 ML 125 ML IVCONT (08:18)
[2023-12-30] MEDS: oxyCODONE HCl Immed Release 5 MG TABLET PO ×2 (10:35→21:19)
[2023-12-30 11:19] LABS: Glucose, Whole Blood 132 mg/dL (60-115)
--- NOTE | 2023-12-30 13:13 | P.PNUR_ITS ---
Subjective Subjective Date of Service: 12/30/23 Patient reports: still having pain Interval history: The patient states still having pain, but expresses that the right flank pain is improved. She is not tolerating solids. On exam, Right flank tenderness seems improved. She has right lower quadrant tenderness as well. Recommend Repeat CT scan Abd/pelvis with IV contrast to evaluate for decrease in perfusion or excretion of the right kidney as well as evaluate appendix. Physical Exam 2 Vital Signs: Vital Signs: Last Vital Signs Temp 98 F 12/30/23 06:55 Pulse 76 12/30/23 07:32 Resp 18 12/30/23 07:32 BP 121/63 12/30/23 06:55 Pulse Ox 92 12/30/23 06:55 O2 Del Method Room Air 12/30/23 06:55 BMI result Body Mass Index 27.8 Const: General: cooperative, healthy appearing and no acute distress O rientation/consciousness: patient oriented x3 HEENT: Head: Yes normal to inspection, Yes normocephalic and Yes atraumatic Eyes: Conjunctivae: conjunctivae normal Neck: Neck: Yes normal visual inspection and Yes trachea midline Chest: Chest palpation & inspection: normal inspection of the chest Resp: Effort & Inspection: normal respiratory effort Cardio: Rate: regular rate GI: Inspection: Yes normal to inspection Palpation (GI): Soft to palpation and Tenderness to palpation present (GI) in the RLQ : General: Yes CVA tenderness (right) Back/Spine/Pelvis: Back: CVA tenderness (right) Neuro: General: patient oriented x3 Psych: Appearance: grossly normal Urology Results Labs 12/29/23 12:36 12/30/23 05:01 Labs: Laboratory Results - last 24 hr 12/29/23 12/29/23 12/30/23 16:11 20:33 05:01 Hold Purple Top SEE NOTE Sodium 139 Potassium 3.8 Chloride 106 Carbon Dioxide 26 Anion Gap 11 L BUN 8 L Creatinine 0.69 Estim Creat Clear Calc 104.0 Estimated GFR > 60 POC Glucose 150 H 125 H Random Glucose 122 H Calcium 9.2 12/30/23 12/30/23 07:32 11:13 Hold Purple Top Sodium Potassium Chloride Carbon Dioxide Anion Gap BUN Creatinine Estim Creat Clear Calc Estimated GFR POC Glucose 137 H 132 H Random Glucose Calcium Progress Note: A&P Assessment and plan (1) Pyelonephritis: Status: Acute (2) Flank pain: Status: Acute (3) Abdominal pain, right lower quadrant: Status: Acute Plan Recommend Repeat CT scan Abd/pelvis with IV contrast to evaluate for decrease in perfusion or excretion of the right kidney as well as evaluate appendix Time Spent With Patient Time: Total time managing care of this patient today ____ minutes. Progress Note: Quality Stroke Does the patient have a stroke diagnosis?: No
[2023-12-30 15:08] VITALS: BP 135/63; PULSE 87; RESP 16; TEMP 36.8; O2SAT 95
[2023-12-30] MEDS: Hydrocortisone Sod Succ/PF 100 MG VIAL 200 MG IVPUSH (16:04)
[2023-12-30 16:10] LABS: Glucose, Whole Blood 115 mg/dL (60-115)
[2023-12-30] MEDS: 0.9 % Sodium Chloride 1,000 ML 100 ML IVCONT (17:06)
[2023-12-30 19:50] VITALS: BP 142/75; PULSE 85; RESP 16; TEMP 36.8; O2SAT 94
[2023-12-30 19:57] LABS: Glucose, Whole Blood 175 mg/dL (60-115)
[2023-12-30] MEDS: diphenhydrAMINE HCL 50 MG/ML VIAL IVPUSH (19:58)
--- NOTE | 2023-12-30 19:59 | PC.RT ---
Pt refusing CPAP
[2023-12-30] MEDS: iohexoL 350 MG/ML 100 ML INFUS..BTL 85 ML IV (21:09)
[2023-12-30] MEDS: Montelukast Sodium 10 MG TABLET PO (21:19)
[2023-12-30] MEDS: cefTRIAXone sodium 1 GM in 0.9 % Sodium Chloride 50 ML IV (21:19)
[2023-12-31 02:44] VITALS: BP 132/75; PULSE 65; RESP 14; TEMP 37.2; O2SAT 97
[2023-12-31 03:04] VITALS: BP 135/65; PULSE 66; RESP 16; TEMP 36.1; O2SAT 94
[2023-12-31] MEDS: 0.9 % Sodium Chloride 1,000 ML 100 ML IVCONT (04:04)
[2023-12-31] MEDS: oxyCODONE HCl Immed Release 5 MG TABLET PO ×3 (04:17→20:48)
[2023-12-31] MEDS: Metoclopramide HCl 10 MG/2 ML VIAL 5 MG IVPUSH (04:19)
[2023-12-31 05:46] LABS: MANUAL DIFF FLAG NO
[2023-12-31 05:53] LABS: Basophils Percent Auto 0.2 % (0-2); Eosinophils Absolute Auto 0.2 X10*3/uL (0.0-0.4); Eosinophils Percent Auto 1.6 % (0-4); Hematocrit 39.5 % (37.0-47.0); Hemoglobin 12.9 g/dl (12.0-16.0); Imm Gran Abs Auto 0.04 X10*3/uL (0.00-0.03); Imm Gran Pct Auto 0.4 % (0.0-0.4); Lymphocytes Absolute Auto 2.6 X10*3/uL (1.2-4.9); Lymphocytes Percent Auto 25.6 % (20-40); Mean Corpuscular HGB Conc 32.7 g/dl (31.0-35.0); Mean Corpuscular Hemoglobin 27.5 pg (27.0-33.0); Mean Corpuscular Volume 84.2 fL (80.0-98.0); Mean Platelet Volume 9.8 fL (9.4-12.3); Monocytes Absolute Auto 0.7 X10*3/uL (0.1-1.2); Monocytes Percent Auto 6.3 % (2-11); Neutrophils Absolute Auto 6.8 x10*3/uL (2.0-8.3); Neutrophils Percent Auto 65.9 % (45-73); Platelet Count 306 X10*3/uL (160-400); Red Blood Count 4.69 X10*6/uL (4.20-5.50); Red Cell Distribution Width 13.2 % (11.0-16.0); White Blood Count 10.3 X10*3/uL (4.8-10.8)
[2023-12-31] MEDS: Omeprazole 20 MG CAPSULE.DR PO (06:02)
[2023-12-31 06:06] LABS: Anion Gap 11 (12-20); Blood Urea Nitrogen 7 mg/dL (9-16); Calcium 8.6 mg/dL (8.4-10.2); Carbon Dioxide 23 mmol/L (22-29); Chloride 110 mmol/L (96-108); Creatinine Clr Calc Pharmacy 113.9; Estimated Glomerular Filt Rate > 60; Glucose Random 135 mg/dL (60-115); Potassium 3.4 mmol/L (3.3-5.1); Sodium 141 mmol/L (135-145)
[2023-12-31 07:20] LABS: Glucose, Whole Blood 116 mg/dL (60-115)
[2023-12-31 07:58] VITALS: BP 126/73; PULSE 70; RESP 16; TEMP 36.1; O2SAT 95
[2023-12-31] MEDS: Fluticasone/Vilanterol 100/25 BLST.W.DEV 1 PUFF INHALE (07:58)
[2023-12-31] MEDS: Tiotropium Bromide 2.5 mcg 1 PUFF/2.5 MCG MIST.INHAL INHALE (07:58)
[2023-12-31 08:00] VITALS: PULSE 72; RESP 16; O2SAT 96
[2023-12-31] MEDS: ondansetron HCL 4 MG/2 ML VIAL IVPUSH (09:06)
[2023-12-31] MEDS: Potassium Chloride ER 10 MEQ TABLET.ER PO (09:06)
[2023-12-31] MEDS: Clopidogrel Bisulfate 75 MG TABLET PO (09:06)
[2023-12-31] MEDS: Dextroamphetamine/Amphetamine XR 10 MG CAP.ER.24H 20 MG PO (09:06)
[2023-12-31] MEDS: Ketorolac Tromethamine 15 MG/ML VIAL IVPUSH ×2 (09:06→19:00)
[2023-12-31] MEDS: Atorvastatin Calcium 20 MG TABLET PO (09:07)
[2023-12-31] MEDS: Loratadine 10 MG TABLET PO (09:07)
[2023-12-31] MEDS: Gabapentin 100 MG CAPSULE 200 MG PO ×3 (09:07→20:47)
[2023-12-31] MEDS: 0.9 % Sodium Chloride Flush 3 ML SYRINGE IVFLUSH ×2 (09:07→15:28)
[2023-12-31 10:55] LABS: Glucose, Whole Blood 163 mg/dL (60-115)
--- NOTE | 2023-12-31 12:00 | HO.PM.IMPN ---
Subjective Subjective Date of Service: 12/31/23 Interval History: question of hematuria Review of Systems no fevers pain is improving Physical Exam Vital Signs: Vital Signs: Last Vital Signs Temp 97.0 F 12/31/23 07:58 Pulse 72 12/31/23 08:00 Resp 16 12/31/23 08:00 BP 126/73 12/31/23 07:58 Pulse Ox 95 12/31/23 07:58 O2 Del Method Room Air 12/31/23 07:58 BMI result Body Mass Index 27.8 Appearance: Alert.? Oriented X3.? cvs: rrr, [id number]. res: air entry fair , nor rales or wheezing abd: no rebound or guarding ,nt, bs present. ext pulses present , no cyanosis neuro: axo3 , nonfocal. Objective Data Active Medications Acetaminophen (Acetaminophen 325 Mg Tablet) 650 mg PO Q6H PRN PRN Reason: Pain, Mild (Pain Scale 1-3) Last Admin: 12/26/23 16:02 Dose: 650 mg Documented By: JAI Albuterol Sulfate (Albuterol Sulfate 90 Mcg 8 Gm Inhaler) 2 puff INHALE RQ4H PRN PRN Reason: wheezing Albuterol Sulfate (Albuterol Sulfate (0.083%) 2.5 Mg/3 Ml Vial.Neb) 2.5 mg INHALE DAILY PRN PRN Reason: wheezing Amphetamine/Dextroamphetamine (Dextroamphetamine/Amphetamine Xr 10 Mg Cap.Er.24h) 20 mg PO DAILY [facility] Last Admin: 12/31/23 09:06 Dose: 20 mg Documented By: MIREYA Aspirin (Aspirin 81 Mg Tab.Chew) 81 mg PO DAILY [facility] Last Admin: 12/29/23 08:30 Dose: 81 mg Documented By: FARA Atorvastatin Calcium (Atorvastatin Calcium 20 Mg Tablet) 20 mg PO DAILY [facility] Last Admin: 12/31/23 09:07 Dose: 20 mg Documented By: MIREYA Clopidogrel Bisulfate (Clopidogrel Bisulfate 75 Mg Tablet) 75 mg PO DAILY [facility] Last Admin: 12/31/23 09:06 Dose: 75 mg Documented By: MIREYA Dextrose (Dextrose 50 % 25 Gm/50 Ml Syringe) 25 gm IVPUSH Q15M PRN; Protocol PRN Reason: per Hypoglycemia Standing Ord. Diphenhydramine HCl (Diphenhydramine Hcl 50 Mg/Ml Vial) 50 mg IVPUSH Q4H PRN PRN Reason: swelling Enoxaparin Sodium (Enoxaparin Sodium 40 Mg/0.4 Ml Syringe) 40 mg SUBCUT Q24H [facility] Last Admin: 12/30/23 21:19 Dose: 40 mg Documented By: AALIYAH Fluticasone/Vilanterol (Fluticasone/Vilanterol 100/25 Blst.W.Dev) 1 puff INHALE DAILY [facility] Last Admin: 12/31/23 07:58 Dose: 1 puff Documented By: PATRICE Gabapentin (Gabapentin 100 Mg Capsule) 200 mg PO TID [facility] Last Admin: 12/31/23 09:07 Dose: 200 mg Documented By: MIREYA Glucose (Glucose Gel 15 Gm Gel..Gram.) 15 gm PO Q15M PRN; Protocol PRN Reason: per Hypoglycemia Standing Ord. Ceftriaxone Sodium 1 gm/ (Sodium Chloride) 50 mls @ 100 mls/hr IV Q24H [facility] Last Infusion: 12/30/23 22:21 Dose: Infused Documented By: AALIYAH Insulin Human Lispro (Insulin Lispro 100 Unit/Ml 3 Ml Vial) 0 unit SUBCUT QIDACHS [facility]; Protocol Last Admin: 12/31/23 08:32 Dose: Not Given Ketorolac Tromethamine (Ketorolac Tromethamine 15 Mg/Ml Vial) 15 mg IVPUSH Q6H PRN PRN Reason: flank pain Last Admin: 12/31/23 09:06 Dose: 15 mg Documented By: MIREYA Loratadine (Loratadine 10 Mg Tablet) 10 mg PO DAILY [facility] Last Admin: 12/31/23 09:07 Dose: 10 mg Documented By: MIREYA Melatonin (Melatonin 3 Mg Tablet) 6 mg PO BEDTIME PRN PRN Reason: Insomnia Last Admin: 12/28/23 20:42 Dose: 6 mg Documented By: AALIYAH Metoclopramide HCl (Metoclopramide Hcl 10 Mg/2 Ml Vial) 5 mg IVPUSH Q6H PRN PRN Reason: N/V unreliebed by [place] Last Admin: 12/31/23 04:19 Dose: 5 mg Documented By: AALIYAH Montelukast Sodium (Montelukast Sodium 10 Mg Tablet) 10 mg PO BEDTIME [facility] Last Admin: 12/30/23 21:19 Dose: 10 mg Documented By: AALIYAH Omeprazole (Omeprazole 20 Mg Capsule.Dr) 20 mg PO DAILY@0630 [facility] Last Admin: 12/31/23 06:02 Dose: 20 mg Documented By: AALIYAH Ondansetron HCl (Ondansetron Hcl 4 Mg/2 Ml Vial) 4 mg IVPUSH Q8H PRN PRN Reason: Nausea and Vomiting Last Admin: 12/31/23 09:06 Dose: 4 mg Documented By: MIREYA Oxycodone HCl (Oxycodone Hcl Immed Release 5 Mg Tablet) 5 mg PO Q4H PRN PRN Reason: severe pain Last Admin: 12/31/23 04:17 Dose: 5 mg Documented By: AALIYAH Potassium Chloride (Potassium Chloride Er 10 Meq Tablet.Er) 10 meq PO DAILY [facility] Last Admin: 12/31/23 09:06 Dose: 10 meq Documented By: MIREYA Sodium Chloride (0.9 % Sodium Chloride Flush 3 Ml Syringe) 3 ml IVFLUSH QSHIFT [facility] Last Admin: 12/31/23 09:07 Dose: 3 ml Documented By: MIREYA Tiotropium [place] (Tiotropium [place] 2.5 Mcg 1 Puff/2.5 Mcg Mist.Inhal) 1 puff INHALE DAILY [facility] Last Admin: 12/31/23 07:58 Dose: 1 puff Documented By: PATRICE Labs 12/31/23 05:12 12/31/23 05:12 Labs: Laboratory Results - last 24 hr 12/30/23 12/30/23 12/31/23 16:06 19:53 05:12 MCV 84.2 MCH 27.5 MCHC 32.7 RDW 13.2 Plt Count 306 MPV 9.8 Immature Gran % (Auto) 0.4 Neut % (Auto) 65.9 Lymph % (Auto) 25.6 [place] % (Auto) 6.3 Eos % (Auto) 1.6 Baso % (Auto) 0.2 Lymph # (Auto) 2.6 [place] # (Auto) 0.7 Eos # (Auto) 0.2 Baso # (Auto) 0.0 Abs Immat Gran (auto) 0.04 H Absolute Neuts (auto) 6.8 Absolute Nucleated RBC 0.000 Nucleated RBC % (auto) 0.0 Anion Gap 11 L Estim Creat Clear Calc 113.9 Estimated GFR > 60 POC Glucose 115 175 H Random Glucose 135 H Calcium 8.6 D 12/31/23 12/31/23 07:15 10:51 MCV MCH MCHC RDW Plt Count MPV Immature Gran % (Auto) Neut % (Auto) Lymph % (Auto) [place] % (Auto) Eos % (Auto) Baso % (Auto) Lymph # (Auto) [place] # (Auto) Eos # (Auto) Baso # (Auto) Abs Immat Gran (auto) Absolute Neuts (auto) Absolute Nucleated RBC Nucleated RBC % (auto) Anion Gap Estim Creat Clear Calc Estimated GFR POC Glucose 116 H 163 H Random Glucose Calcium Microbiology Microbiology Results: Microbiology 12/25/23 21:06 Blood Culture - Final Blood - Venous No growth after 5 days. 12/25/23 21:06 Blood Culture - Final Blood - Venous No growth after 5 days. Assessment and Plan (1) Flank pain: Status: Acute (2) Hematuria: Status: Acute Plan day-6 53yo F with PVD s/p AKA, DM2, HTN, GERD, mood disorder presenting with urinary discomfort x2 wk, flank pain, N/V-took 3 doses of Bactrim but then developed N/V-found to be septic. sepsis due to pyelonephritis due to E. coli [R to ampicillin + Bactrim, I to levofloxacin] continue ceftriaxone 03/24, change to cefuroxime upon discharge, lactate normalized, BCx negative patient c/o question of hematuria ,will repeat UA. Renal U/S negative for obstruction or hydronephrosis, non-obstructing R stone. ct abd: nonobstructing small punctate right renal calculus, enlarged fibroid uterus and posterior fusion L4-S1. plan: continue antiemetics tolerating solids, diet changed to clear liquids Urology input appreciated- no surgical intervention at this time,repeat ct as above ,will add ua ? hematuria. hypotension- resolved; monitor off IV fluids. HTN- continue to hold valsartan-HCTZ + amlodipine and add back if BP becomes elevated PAD- continue ASA/clopidogrel + atorvastatin chronic lung disease- continue home inhalers, montelukast DM2- hold MTF + dapagliflozin, give basal-bolus insulin mood disorder- hold clonidine GERD- PPI VTE ppx- LMWH dispo - home pending improvement in pain control. In my clinical judgment, the patient requires continued inpatient hospitalization for the following reasons: pain control, PO intolerance,hemtuaria workup,urology follow up. Quality Stroke Does the patient have a stroke diagnosis?: No VTE Prior VTE?: No VTE Risk Level:: Medical - moderate - high VTE Device Contraindication: Treatment Not Indicated VTE Drug Contraindication: N/A - Med Ordered
[2023-12-31 15:35] VITALS: BP 150/80; PULSE 71; RESP 18; TEMP 36.8; O2SAT 96
[2023-12-31 16:52] LABS: Glucose, Whole Blood 114 mg/dL (60-115)
[2023-12-31 19:06] VITALS: BP 140/67; PULSE 63; RESP 20; TEMP 36.4; O2SAT 95
[2023-12-31 19:10] LABS: Appearance Urine Clear; Color Urine Yellow; Glucose Urine UA Negative (Negative); Leukocyte Esterase Urine Moderate (2+) (Negative); Nitrite Urine Negative (Negative); Specific Gravity - Urine <= 1.005 (1.005-1.025); UMIC TRIGGER UA YES; Urine Blood Negative (Negative); Urine Ketones Negative (Negative); Urine Protein Negative (Neg-Trace)
[2023-12-31 19:29] LABS: Bacteria Urine None Seen (None Seen); Hyaline Casts Urine 0-2 /LPF (0-2); RBC Urine 0-2 /HPF (0-2); Squamous Epithelial Cell Urine 0-2 /HPF (0-2); WBC Urine 0-5 /HPF (0-5)
[2023-12-31 19:49] LABS: Glucose, Whole Blood 174 mg/dL (60-115)
[2023-12-31] MEDS: cefTRIAXone sodium 1 GM in 0.9 % Sodium Chloride 50 ML IV (20:46)
[2023-12-31] MEDS: Montelukast Sodium 10 MG TABLET PO (20:47)
[2023-12-31] MEDS: Insulin Lispro 100 UNIT/ML 3 ML VIAL SUBCUT (20:47)
[2024-01-01 03:24] VITALS: BP 128/62; PULSE 62; RESP 18; TEMP 36.2; O2SAT 96
[2024-01-01] MEDS: Ketorolac Tromethamine 15 MG/ML VIAL IVPUSH (05:26)
[2024-01-01] MEDS: Omeprazole 20 MG CAPSULE.DR PO (05:28)
[2024-01-01] MEDS: 0.9 % Sodium Chloride Flush 3 ML SYRINGE IVFLUSH (07:24)
[2024-01-01 07:25] VITALS: BP 130/80; PULSE 70; RESP 16; TEMP 36.4; O2SAT 98
[2024-01-01 07:33] LABS: Glucose, Whole Blood 141 mg/dL (60-115)
[2024-01-01] MEDS: oxyCODONE HCl Immed Release 5 MG TABLET PO (08:12)
[2024-01-01] MEDS: Gabapentin 100 MG CAPSULE 200 MG PO (08:12)
[2024-01-01] MEDS: Potassium Chloride ER 10 MEQ TABLET.ER PO (08:12)
[2024-01-01] MEDS: Atorvastatin Calcium 20 MG TABLET PO (08:13)
[2024-01-01] MEDS: Dextroamphetamine/Amphetamine XR 10 MG CAP.ER.24H 20 MG PO (08:13)
[2024-01-01] MEDS: Clopidogrel Bisulfate 75 MG TABLET PO (08:13)
[2024-01-01] MEDS: Loratadine 10 MG TABLET PO (08:13)
[2024-01-01] MEDS: Tiotropium Bromide 2.5 mcg 1 PUFF/2.5 MCG MIST.INHAL INHALE (08:17)
[2024-01-01] MEDS: Fluticasone/Vilanterol 100/25 BLST.W.DEV 1 PUFF INHALE (08:17)
[2024-01-01 08:19] VITALS: PULSE 65; RESP 16; O2SAT 98
[2024-01-01 11:21] LABS: Glucose, Whole Blood 157 mg/dL (60-115)
[2024-01-01] MEDS: Insulin Lispro 100 UNIT/ML 3 ML VIAL SUBCUT (11:53)
--- NOTE | 2024-01-01 13:58 | P.DS_ITS ---
DS: Providers Provider Date of Service: 01/01/24 Date of admission: 12/25/23 22:43 Date of discharge: 01/01/24 Primary care physician: Mary Ellen Orellana MD Consults: 12/28/23 10:10 Consult to Urology Routine Consulting Provider: [facility] Reason for consultation: R pyelo persistent pain Attending physician on discharge: Loreta Dickey Discharging clinician: Loreta Dickey DS: Diagnosis Discharge Diagnosis (1) Flank pain: Status: Acute (2) Hematuria: Status: Acute DS: Summary Hospital Course Hospital Course: 53-year-old female with pertinent history of peripheral vascular disease status post left AKA, insulin-dependent diabetes mellitus, essential hypertension, mood disorder, gastroesophageal reflux disease who presents to the emergency department for evaluation of right flank pain, nausea and vomiting. Patient states she has been having burning micturition for about 10 days now. She saw her PCP and was initiated on Bactrim. Patient took 3 doses of Bactrim but could not keep it down due to nausea and vomiting. She continued to have her symptoms of increased urinary frequency and dysuria. Patient also developed right-sided flank pain on the day of presentation. Unable to tolerate p.o. intake due to nausea and vomiting. No fever or chills. No chest discomfort, palpitations, shortness of breath, changes in bowel habits. In the emergency department, urine was concerning for UTI and WBC found to be elevated. Hospital course: Patient was admitted for sepsis secondary to UTI, the urine cultures sent and patient was started on IV antibiotics, renal ultrasound negative for obstruction or hydronephrosis, nonobstructing right-sided stone. CT abdomen showed nonobstructing small punctate right renal calculus, enlarged fibroid uterus: Patient seems to be improved with IV antibiotics, seen by Urology no acute surgical intervention, recommended p.o. antibiotic for 10 days upon discharge: Subsequently patient was switched to p.o. Ceftin 500 mg twice daily for 10 more days. Patient is to follow-up with Urology in 3 weeks. plan: Complete p.o. Ceftin 500 mg twice daily for 10 more days, Follow-up with Urology in [address] abd also shows enlarged fibriod uterus -consider outpatient ict support and test engineers eval with pcp. Continue home blood pressure medications-blood pressure is fluctuating between 130-150 range. Further management as per PCP. Above management discussed with the patient in detail length she understand and in agreement with the above plan, time spent 50 minute. Time Attestation Discharge coordination time: Greater than 30 minutes Quality: Safe Use of Opioids Does Pt have an Active Cancer Diagnosis on the Problem List?: No Quality: Stroke Does the patient have a stroke diagnosis?: No Physical Exam Vital Signs: Vital Signs: Last Vital Signs Temp 97.5 F 01/01/24 07:25 Pulse 65 01/01/24 08:19 Resp 16 01/01/24 08:19 BP 130/80 01/01/24 07:25 Pulse Ox 98 01/01/24 07:25 O2 Del Method Room Air 01/01/24 07:25 BMI result Body Mass Index 27.8 Appearance: Alert.? Oriented X3.? cvs: rrr, [id number] , no murmur res: clear to auscultation ,no rhonchii or wheezing abd: no rebound or guarding ,nt, bs present. ext has left aka. neuro: axo3 , nonfocal. DS: Data Data Completed and Pending Labs on day of discharge: Laboratory Results - last 24 hr 12/31/23 12/31/23 12/31/23 16:47 17:08 19:43 POC Glucose 114 174 H Urine Color Yellow Urine Appearance Clear Urine pH 7.0 Ur Specific [place] <= 1.005 Urine Protein Negative Urine Glucose (UA) Negative Urine Ketones Negative Urine Blood Negative Urine Nitrite Negative Ur Leukocyte Esterase Moderate (2+) H Urine RBC 0-2 Urine WBC 0-5 Ur Squamous Epith Cells 0-2 Urine Bacteria None Seen Hyaline Casts 0-2 01/01/24 01/01/24 07:29 11:15 POC Glucose 141 H 157 H Urine Color Urine Appearance Urine pH Ur Specific [place] Urine Protein Urine Glucose (UA) Urine Ketones Urine Blood Urine Nitrite Ur Leukocyte Esterase Urine RBC Urine WBC Ur Squamous Epith Cells Urine Bacteria Hyaline Casts Imaging Chest x-ray: Radiologist's impression: ITS Impressions Abdomen/Pelvis CT 12/25/23 20:56 IMPRESSION: Small nonobstructing bilateral renal stones. No hydronephrosis. Enlarged fibroid uterus. Fleischner guidelines were followed. Renal Ultrasound 12/28/23 10:41 IMPRESSION: 1. No ultrasound evidence of renal obstruction or hydronephrosis. 2. Echogenic structure in the right kidney possibly a nonobstructing stone. 3. Redemonstration of bilateral simple renal cysts, these are likely benign, no follow-up imaging is recommended. Abdomen/Pelvis CT 12/30/23 21:13 IMPRESSION: 1. A cause for the patient's right lower quadrant pain has not been found. 2. Incidental note made of a stable 4 mm right middle lobe lung nodule, nonobstructing small punctate right renal calculus, enlarged fibroid uterus and posterior fusion L4-S1. Fleischner guidelines were followed. Discharge Plan Discharge Anticipated Discharge Date/Time: 12/28/23 11:14 Patient Disposition: Home, Self-Care Discharge Diagnosis: Sepsis due to pyelonephritis Referrals: Mary Ellen Ortega MD [Primary Care Provider] - 1 Week Discharge Medications: New cefuroxime axetil 500 mg tablet 500 mg PO BID Qty: 20 0RF Continued potassium chloride 10 mEq tablet extended release 1 tab PO DAILY montelukast 10 mg tablet 1 tab PO QPM insulin lispro 100 unit/mL insulin pen 20 unit subcut TID valsartan-hydrochlorothiazide 320-25 mg tablet 1 tab PO DAILY gabapentin 100 mg capsule 200 mg PO TID Levemir FlexTouch U100 Insulin 100 unit/mL (3 mL) Insulin Pen 30 unit SUBCUT BEDTIME diclofenac sodium 1 % gel 2 g topical QID multivitamin Tablet 1 tab PO DAILY Trulicity 0.75 mg/0.5 mL pen injector 0.75 mg subcut FR melatonin 5 mg tablet 5 mg PO BEDTIME dextroamphetamine-amphetamine [Adderall XR] 20 mg capsule,extended release 24hr 1 cap PO QAM pantoprazole 20 mg tablet,delayed release (DR/EC) 20 mg PO QAM 30 Days Qty: 30 6RF cetirizine 10 mg tablet 10 mg PO QAM clopidogrel 75 mg tablet 75 mg PO QAM albuterol sulfate [Ventolin HFA] 90 mcg/actuation HFA aerosol inhaler 2 puff inhalation Q4H PRN (Reason: wheezing) metformin 500 mg tablet 500 mg PO QAM clonidine HCl 0.1 mg tablet 0.1 mg PO BEDTIME PRN (Reason: Anxiety) fluticasone propion-salmeterol [Advair Diskus] 250-50 mcg/dose blister with device 1 ea inhalation BID albuterol sulfate 2.5 mg /3 mL (0.083 %) solution for nebulization 2.5 mg inhalation DAILY PRN (Reason: wheezing) Farxiga 10 mg tablet 10 mg PO QAM atorvastatin 20 mg tablet 20 mg PO QAM amlodipine 10 mg tablet 10 mg PO BEDTIME aspirin 81 mg tablet,chewable 1 tab PO QAM Incruse Ellipta 62.5 mcg/actuation blister with device 1 inh inhalation DAILY Discharge Orders: Discharge Order (Routine); Ordered 01/01/24 Ordered By: Loreta Dickey Diet: Diabetic diet Activity on Discharge: As tolerated Stand Alone Forms: Patient Portal Discharge page Care Plan Goals: recovery from infection Health Concerns: sepsis due to pyelonephritis Plan of Treatment: take cefuroxime 500 mg twice daily for 10 more days . Please follow up with your primary care doctor within 1 week. Return to the hospital if you experience recurrent or worsening symptoms. Assessment: See Discharge Summary. Patient Instructions: Kidney Infection (DC)
[2024-01-01] MEDS: cefuroxime axetiL 500 MG TABLET PO (14:17)
--- NOTE | 2024-01-01 14:17 | MHC.CM.PN ---
Patient medically cleared for dc home self care. Has own ride home from family friend.
--- NOTE | 2024-01-01 14:40 | P.CDIM_ITS ---
PROVIDER RESPONSE TEXT: To clarify, the appropriate diagnosis supported by the clinical indicators: Acute QUERY TEXT: PHYSICIAN'S DOCUMENTATION REQUEST Date of Query: 01/01/2024 01:08 PM EST Patient Name: Radha Nguyen Admit Date: 12/26/2023 Dear Loreta Dickey, A review of the medical record indicates additional documentation may be needed. Please review below and update the documentation accordingly. Clinical Indicators: Per Hospitalist Progress Note 12/31/23: pyelonephritis due to E. coli IV Ceftriaxone Clarify which of the following accurately represents the acuity of the Pyelonephritis. Possible options might include: Acute Acute on chronic Compensated Chronic stable condition Remission Other (explain) Clinically unable to determine (explain) Thank you, Astrid Bello RN Use of terms such as suspected, likely, concern for, or probable (associated with a specific diagnosi s that is being evaluated, monitored, or treated as if it exists) are acceptable and can be coded in the inpatient se tting, when documented at the time of discharge. Please use your independent medical judgment in providing your response. THIS QUERY IS PART OF THE PERMANENT MEDICAL RECORD
--- NOTE | 2024-01-01 14:57 | MHC.CM.PN ---
pt dcd home no skilled aervies
== END 2024-01-01 14:49 | disposition home or self-care (01) | DRG 720 ==
LOC: HO.ED 22:43 → HO.EDOVER 22:48 → HO.S3 12-26 12:49
PROVIDERS: Family Medicine; Physician Assistant; Physician Assistant Medical; Admitting Provider Student in an Organized Health Care Education/Training Program; Emergency Provider Emergency Medicine; PCP Student in an Organized Health Care Education/Training Program; Visit Provider Internal Medicine
DX: A41.9 Sepsis, unspecified organism (principal); E87.20 Acidosis, unspecified; E11.51 Type 2 diabetes mellitus with diabetic peripheral angiopathy without gangrene; E11.42 Type 2 diabetes mellitus with diabetic polyneuropathy; N10 Acute pyelonephritis; Z89.612 Acquired absence of left leg above knee; I95.9 Hypotension, unspecified; B96.20 Unspecified Escherichia coli [E. coli] as the cause of diseases classified elsewhere; D25.9 Leiomyoma of uterus, unspecified; F39 Unspecified mood [affective] disorder; G47.33 Obstructive sleep apnea (adult) (pediatric); K21.9 Gastro-esophageal reflux disease without esophagitis; N20.0 Calculus of kidney; Z16.11 Resistance to penicillins; Z16.29 Resistance to other single specified antibiotic; I10 Essential (primary) hypertension; Z87.891 Personal history of nicotine dependence; Z79.4 Long term (current) use of insulin; Z79.02 Long term (current) use of antithrombotics/antiplatelets; Z79.82 Long term (current) use of aspirin; Z79.84 Long term (current) use of oral hypoglycemic drugs; Z79.899 Other long term (current) drug therapy
CPT/HCPCS: 36415; 74176; 74177; 76775; 80048; 80053; 81001; 82947; 83605; 83735; 85025; 85027; 87040; 87086; 87088; 87186; 94640; 94660; 97162; 99285; J0696; J1170; J1200; J1650; J1720; J1885; J2270; J2405; J2765; Q9967

== ENCOUNTER → 2023-12-25 22:43 | Outpatient (BNV) | payer MEDICAID, SELFPAY | PROVIDERS: Admitting Provider Student in an Organized Health Care Education/Training Program; Emergency Provider Emergency Medicine; PCP Student in an Organized Health Care Education/Training Program; Visit Provider Urology | DX: N12 Tubulo-interstitial nephritis, not specified as acute or chronic (principal); R10.9 Unspecified abdominal pain; R10.31 Right lower quadrant pain | CPT/HCPCS: 99222; 99232 ==

== ENCOUNTER → 2023-12-25 22:43 | Outpatient (BNV) | payer MEDICAID, SELFPAY | PROVIDERS: Admitting Provider Student in an Organized Health Care Education/Training Program; Emergency Provider Emergency Medicine; PCP Student in an Organized Health Care Education/Training Program; Visit Provider Student in an Organized Health Care Education/Training Program | DX: A41.51 Sepsis due to Escherichia coli [E. coli] (principal); N12 Tubulo-interstitial nephritis, not specified as acute or chronic; R31.9 Hematuria, unspecified; R10.9 Unspecified abdominal pain | CPT/HCPCS: 99222; 99231; 99232; 99239 ==

== ENCOUNTER 2024-01-07 13:44 | Outpatient (REF) | payer MEDICAID, SELFPAY ==
--- NOTE | ~2024-01-07 | US_ITS ---
EXAMINATION: NONINVASIVE ASSESSMENT OF THE ARTERIES OF THE RIGHT LOWER EXTREMITIES WITH PVR EXAM AND BILATERAL LOWER EXTREMITY DUPLEX Jess Marcelo MD CLINICAL INFORMATION: Peripheral vascular disease TECHNIQUE: Ankle pulse volume recordings, ankle pressure measurements and ankle brachial indices were obtained of the right lower extremity arterial system in addition to duplex Doppler techniques with wave form analysis and measurement of velocities in the common femoral, profunda femoral, superficial femoral, popliteal and tibial arteries. The study was performed only at rest. COMPARISON: None FINDINGS: a) AT REST: RIGHT LE. The right ankle-brachial index is: 0.71 * >0.97-1.25 = normal - no significant arterial disease * 0.75-0.96 = mild peripheral arterial disease * 0.5-0.74 = moderate peripheral arterial disease * <0.50 = severe peripheral arterial disease 2. Right ankle pressure: Abnormal 3. Right ankle PVR waveform: Abnormal 4. Right direct duplex Doppler findings: Common femoral artery: 133 cm/s, Multiphasic Profunda femoris artery: 96 cm/s, Multiphasic Superficial femoral artery (proximal): 67 cm/s, Multiphasic Superficial femoral artery (mid): 98 cm/s, Multiphasic Superficial femoral artery (distal): 67 cm/s, Multiphasic Proximal Popliteal artery: 75 cm/s, Multiphasic Mid posterior tibial artery: 40 cm/s, monophasic Incidental note is made of a Mckenzie's cyst measuring 3.2 cm. US/US arterial duplex LE RT IMPRESSION: RIGHT LOWER EXTREMITY: Moderate peripheral arterial disease.
--- NOTE | ~2024-01-07 | US_ITS ---
EXAMINATION: US PELVIS CLINICAL INFORMATION: History of uterine fibroids. LMP 2 years ago. COMPARISON: CT abdomen/pelvis 12/30/2023 TECHNIQUE: Ultrasound of the pelvis is performed using both transabdominal and transvaginal transducers along with Doppler. Transvaginal imaging is performed due to inadequate visualization transabdominally. FINDINGS: Uterus: The uterus is anteverted and measures 10.5 x 6.3 x 7.4 cm. Uterine echotexture is heterogeneous. Posterior intramural fibroid measures 1.9 x 1.4 x 1.6 cm. Left intramural fibroid measures 3.3 x 2.8 x 2.3 cm. Fundal fibroid measures 4.8 x 5.4 x 4.9 cm. The double wall endometrial thickness is 6 mm. Adnexa: Both ovaries are visualized. There is normal color flow to the adnexa. There is no pelvic ascites or fluid collection. Right ovary measures 3.5 x 3.2 x 2.8 cm. Left ovary measures 4.0 x 1.8 x 2.5 cm. US/US pelvic and transvaginal IMPRESSION: Enlarged uterus with multiple fibroids.
--- NOTE | ~2024-01-07 | US_ITS ---
EXAMINATION: NONINVASIVE ASSESSMENT OF THE ARTERIES OF THE RIGHT LOWER EXTREMITIES WITH PVR EXAM AND BILATERAL LOWER EXTREMITY DUPLEX Jess Marcelo MD CLINICAL INFORMATION: Peripheral vascular disease TECHNIQUE: Ankle pulse volume recordings, ankle pressure measurements and ankle brachial indices were obtained of the right lower extremity arterial system in addition to duplex Doppler techniques with wave form analysis and measurement of velocities in the common femoral, profunda femoral, superficial femoral, popliteal and tibial arteries. The study was performed only at rest. COMPARISON: None FINDINGS: a) AT REST: RIGHT LE. The right ankle-brachial index is: 0.71 * >0.97-1.25 = normal - no significant arterial disease * 0.75-0.96 = mild peripheral arterial disease * 0.5-0.74 = moderate peripheral arterial disease * <0.50 = severe peripheral arterial disease 2. Right ankle pressure: Abnormal 3. Right ankle PVR waveform: Abnormal 4. Right direct duplex Doppler findings: Common femoral artery: 133 cm/s, Multiphasic Profunda femoris artery: 96 cm/s, Multiphasic Superficial femoral artery (proximal): 67 cm/s, Multiphasic Superficial femoral artery (mid): 98 cm/s, Multiphasic Superficial femoral artery (distal): 67 cm/s, Multiphasic Proximal Popliteal artery: 75 cm/s, Multiphasic Mid posterior tibial artery: 40 cm/s, monophasic Incidental note is made of a Mckenzie's cyst measuring 3.2 cm. US/US RAMANA complete IMPRESSION: RIGHT LOWER EXTREMITY: Moderate peripheral arterial disease.
== END 2024-01-07 13:45 | disposition home or self-care (01) ==
LOC: HO.US 13:44
PROVIDERS: PCP Student in an Organized Health Care Education/Training Program; Visit Provider Surgery Vascular Surgery
DX: I73.9 Peripheral vascular disease, unspecified (principal); D25.9 Leiomyoma of uterus, unspecified
CPT/HCPCS: 76830; 76856; 93923; 93926

== ENCOUNTER 2024-01-14 18:29 | Outpatient (REF) | payer MEDICAID, SELFPAY ==
[2024-01-15 20:08] LABS: CDiff Gene PCR NEGATIVE (Negative)
== END 2024-01-14 18:30 | disposition home or self-care (01) ==
LOC: HO.HHCLNP 18:29
PROVIDERS: Visit Provider Student in an Organized Health Care Education/Training Program
DX: R19.7 Diarrhea, unspecified (principal)
CPT/HCPCS: 87493; 87507

== ENCOUNTER 2024-01-28 14:32 | Outpatient (AMB) | payer MEDICAID, SELFPAY ==
--- NOTE | 2024-01-28 14:50 | A.OFFVIS_ITS ---
Intake Intake Visit Reasons: Follow up Arterial US 01/07/2024 Intake Note: follow up arterial US 01/07/24. Pt only complaint today is chest palpitations and tightness. Accompanied by: Self / Same As Patient Allergies Iodinated Contrast Media [IV DYE, IODINE CONTAINING] Allergy (Unknown, Verified 01/28/24 14:51) HIVES HPI Follow up Arterial US 01/07/2024 HPI Details Very pleasant 53-year-old female presents to us for follow-up peripheral vascular disease. She had a left AKA done in [place] and had a right lower extremity bypass. Appears to be doing relatively well. 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 She has been doing relatively well with right leg in a wheelchair. She now presents for surveillance follow-up of the right lower extremity [facility] Medical History Hematuria Abdominal pain, right lower quadrant Flank pain Elevated WBC count Acidosis, lactic Sepsis 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 PAD (peripheral artery disease) Mild acid reflux Raynauds disease Insulin dependent type 2 diabetes mellitus Peripheral neuropathy Non-insulin dependent type 2 diabetes mellitus Hypertension Surgical History S/P cholecystectomy S/P appendectomy History of esophagogastroduodenoscopy (EGD) Hx of colonoscopy Amputated left leg Family History Mother Acute eczema HTN (hypertension) Diabetes Family/Other Cancer Social History Household Members: Family Housing: Apartment Do you presently have visiting nurse or other home services: No Alcohol intake: never Patient Tobacco Use Status: Former Tobacco user Quit Date: 2006 Tobacco use type: Cigarette Second Hand Smoke Exposure: No service: No Current occupational status: disabled Review of Systems Const All systems reviewed & are unremarkable except as noted in HPI and below Reports no additional complaints ENT Reports Normal hearing present Card Denies chest pain, Denies chest pain at rest, Denies chest pain with activity and Denies pedal edema Resp Denies cough GI Denies abdominal pain Musc Denies abnormal gait, Denies muscle cramps and Denies radiating pain into limb Skin/Breast Denies skin ulcer and Denies wounds Neuro Reports Normal hearing present and Denies abnormal gait Psych Reports no additional complaints Physical Exam Const General: cooperative, healthy appearing and comfortable Orientation/consciousness: oriented to person, oriented to place and oriented to time HEENT Head: Yes normal to inspection Neck Neck: Yes normal visual inspection Carotids: no bruits Chest Chest palpation & inspection: normal inspection of the chest Resp Effort & Inspection: normal respiratory effort and able to speak in complete sentences Auscultation: clear to auscultation bilaterally, no crackles, no rales, no rhonchi and no wheezes Cardio Rate: regular rate Rhythm: regular rhythm Heart sounds: S1 normal heart sound present and S2 normal heart sound present Bruits: no carotid bruits Peripheral pulses: Peripheral pulses 2+ throughout GI Inspection: Yes normal to inspection Skin Other: Left stump well-healed Wounds: no wounds Hair: normal Neuro General: oriented to person, oriented to place and oriented to time Cranial nerves: Yes CN's II-XII intact bilaterally and Yes Normal hearing present Cognition (Neuro): normal cognition Motor exam (neuro): 5/5 motor strength present throughout Extrem Other: venous exam: No significant superficial varicosities or spider telangiectasias, minimal edema General: No clubbing, No cyanosis and No edema Psych Appearance: grossly normal Mental Status: mental status grossly normal Speech and movement: Normal speech and movement present Results Reviewed Results Reviewed: Right RAMANA of 0.71 with multi phasic flow down to the tibials. Written report and images were reviewed Assessment & Plan Assessment & Plan (1) PAD (peripheral artery disease): Comment: 2006 - [place] left BKA converted to left AKA 06/16/2007 right femoral to distal peroneal bypass done at [facility] in [place] by Code(s): I73.9 - Peripheral vascular disease, unspecified Plan: In short patient has stable claudication. Left AKA stump appears to be doing well as well I did review the pathophysiology of peripheral vascular disease with the patient. In addition we did discuss routine conservative measures including a healthy diet and the importance of exercise and ambulation. We did discuss risk factor modification. The patient will continue to to follow-up with surveillance follow-up in approximately 1 year. Thank you for allowing us to participate in this patient's care. If there are any questions or concerns please do not hesitate to contact us. Orders: Orders US arterial duplex LE RT 1 Year I73.9 - Peripheral vascular disease, unspecified Coding Level of Care Code Est Pt Level 4 (52309) Diagnoses PAD (peripheral artery disease) I73.9
== END 2024-01-28 15:02 | disposition home or self-care (01) ==
PROVIDERS: PCP Student in an Organized Health Care Education/Training Program; Visit Provider Surgery Vascular Surgery
DX: I73.9 Peripheral vascular disease, unspecified (principal)
CPT/HCPCS: 99213

== ENCOUNTER → 2024-01-28 14:32 | Outpatient (BNVA) | payer MEDICAID, SELFPAY | PROVIDERS: PCP Student in an Organized Health Care Education/Training Program; Visit Provider Surgery Vascular Surgery | DX: I73.9 Peripheral vascular disease, unspecified (principal); R00.2 Palpitations; Z89.619 Acquired absence of unspecified leg above knee; I10 Essential (primary) hypertension; E11.9 Type 2 diabetes mellitus without complications | CPT/HCPCS: 99212 ==

== ENCOUNTER 2024-02-14 16:00 | Outpatient (AMB) | payer MEDICAID, SELFPAY ==
--- NOTE | 2024-02-14 16:00 | A.OFFVIS_ITS ---
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 She was admitted for right pyelonephritis and treated with IV abx's. She had a CT abd/pelvis with IV contrast, 12/30/23- benign renal cysts, right renal stone, no hydronephrosis. Plan continue to monitor kidney stone. FU with renal US in 9 months [facility] Medical History Hematuria Abdominal pain, right lower quadrant Flank pain Elevated WBC count Acidosis, lactic Sepsis 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 PAD (peripheral artery disease) Mild acid reflux Raynauds disease Insulin dependent type 2 diabetes mellitus Peripheral neuropathy Non-insulin dependent type 2 diabetes mellitus Hypertension Surgical History S/P cholecystectomy S/P appendectomy History of esophagogastroduodenoscopy (EGD) Hx of colonoscopy Amputated left leg Family History Mother Acute eczema HTN (hypertension) Diabetes Family/Other Cancer Social History Household Members: Family Housing: Apartment Do you presently have visiting nurse or other home services: No Alcohol intake: never Patient Tobacco Use Status: Former Tobacco user Quit Date: 2006 Tobacco use type: Cigarette Second Hand Smoke Exposure: No service: No Current occupational status: disabled Review of Systems Const All systems reviewed & are unremarkable except as noted in HPI and below Reports no additional complaints Eyes Reports no additional complaints ENT Reports no additional complaints Card Reports no additional complaints Resp Reports no additional complaints GI Reports no additional complaints Reports as per HPI Musc Reports no additional complaints Skin/Breast Reports system reviewed and no additional complaints, except as documented Neuro Reports no additional complaints Psych Reports no additional complaints Endo Reports no additional complaints Michael/Lymph Reports no additional complaints Aller/Immun Reports no additional complaints Telehealth Telehealth Location of provider rendering services: practice address Location of patient: address on file Patient Identification confirmed using: Name, : Yes Telehealth method: voice only Patient verbally consented to treatment: Yes Patient verbally consented to billing insurance company: Yes Patient informed of any privacy concerns related to visit: Yes Minutes spent on Phone/Video with Pt.: 15 Results Reviewed Results Reviewed: Date of Service: 12/30/23 CT ABDOMEN AND PELVIS WITH CONTRAST CLINICAL INFORMATION: Worsening right lower quadrant pain COMPARISON: CT abdomen pelvis 5 days ago on 12/25/2023, CT chest 10/19/2022, CT abdomen pelvis 08/06/2023. TECHNIQUE: Multidetector volumetric images were obtained from the superior aspect of the liver through the pubic symphysis following administration 85 mL of Omnipaque 350 intravenous contrast. Sagittal and coronal reformatted images were obtained on the technologist's workstation. Oral contrast: No This CT examination was performed using dose optimization techniques as appropriate, variously including the following: *Automated exposure control *Adjustment of mA and/or kV according to patient size (this includes techniques or standardized protocols for targeted exams where dose is matched to indication/reason for exam; i.e. extremities or head) *Use of iterative reconstruction technique DLP: 529 mGy-cm FINDINGS: LUNG BASES: There is a 4 mm pleural-based nodule in the right middle lobe anteriorly, unchanged when compared to 10/19/2022 CT chest. The visualized lung bases are otherwise unremarkable. LIVER, GALLBLADDER, AND BILIARY TREE: The liver is normal in size, and shape. Attenuation is slightly decreased suggesting hepatic steatosis as seen on prior noncontrast CT scans. No focal hepatic lesion or biliary ductal dilatation is present. Status post cholecystectomy. PANCREAS: Unremarkable. SPLEEN: Unremarkable. ADRENAL GLANDS: Unremarkable. KIDNEYS AND URETERS: The kidneys are normal in size, shape, and attenuation. There are bilateral benign cortical Bosniak class I renal cysts present which need no additional imaging or follow-up. No solid renal masses are seen. A small nonobstructing right renal calculus is present (3:32). No hydronephrosis, hydroureter, or additional calculi seen. No perinephric stranding. BLADDER: Unremarkable. GASTROINTESTINAL TRACT: The small and large bowel are unremarkable. The appendix is not seen in right lower quadrant surgical clips are present. ABDOMINAL WALL: No significant hernia is appreciated. Neural stimulator is present in the left buttock with leads extending up into the back and into the epidural space with the tip of the leads beyond the [id number] on the CT scan but at the level of the top of T8 on the hand bander radiograph. LYMPH NODES: Normal. VASCULAR: Unremarkable. PELVIC VISCERA: The uterus is enlarged with multiple fibroids. OSSEOUS STRUCTURES: There is posterior fusion from L4 through S1. Disc spacers are present as well. Sclerosis is present in the posterior right iliac bone adjacent to the SI joint (4: 530), unchanged from prior. IMPRESSION: 1. A cause for the patient's right lower quadrant pain has not been found. 2. Incidental note made of a stable 4 mm right middle lobe lung nodule, nonobstructing small punctate right renal calculus, enlarged fibroid uterus and posterior fusion L4-S1. Date of Service: 12/28/23 US RETROPERITONEAL LIMITED (RENAL ONLY) CLINICAL INFORMATION: Persistent pain, pyelonephritis. COMPARISON: Prior ultrasound July 2023 TECHNIQUE: Bilateral renal ultrasound performed. FINDINGS: RIGHT KIDNEY: 11.7 x 6.2 x 5.5 cm (SAG x AP x TRV). Simple cyst upper pole 1.8 x 1.8 x 1.5 cm echogenic structure in the right kidney possibly a nonobstructing stone measure 3 mm middle pole. The kidney is normal in size, contour, and echogenicity. Renal cortical thickness is normal. LEFT KIDNEY: 11.7 x 5.3 x 6.3 cm (SAG x AP x TRV). There is a simple cyst middle pole 1.2 x 1.3 x 1.6 cm. The kidney is normal in size, contour, and echogenicity. Renal cortical thickness is normal. No hydronephrosis. IMPRESSION: 1. No ultrasound evidence of renal obstruction or hydronephrosis. 2. Echogenic structure in the right kidney possibly a nonobstructing stone. 3. Redemonstration of bilateral simple renal cysts, these are likely benign, no follow-up imaging is recommended. Assessment & Plan Assessment & Plan (1) Right sided abdominal pain: Code(s): R10.9 - Unspecified abdominal pain Category: Medical (2) Kidney stone: Code(s): N20.0 - Calculus of kidney Category: Medical Plan renal US in 9 months Orders: Orders US renal BI 9 Months R10.9 - Unspecified abdominal pain, N20.0 - Calculus of kidney Patient Instructions: The patient had an opportunity to ask questions regarding treatment plan. The patient expressed understanding and agreement with the above treatment plan. The patient is aware they should contact our office by phone for worsening of their current condition or the appearance of new symptoms. Compliance is encouraged with any medications and followup testing that is ordered. It is a privilege to be allowed the opportunity to participate in the urologic care of your patient. If you have any questions or concerns regarding treatment for the above conditions please do not hesitate to contact me. The office telephone contact is [phone]. This note is constructed in part using voice recognition software. While every effort has been made to ensure accuracy senior fire protection engineer errors may have been included. Yours sincerely, Aydin Marie MD Coding Level of Care Code Tele New Pt Level 3 (14660) Diagnoses Right sided abdominal pain R10.9 Kidney stone N20.0
== END 2024-02-14 16:06 | disposition home or self-care (01) ==
LOC: HO.HUSH 16:00
PROVIDERS: PCP Student in an Organized Health Care Education/Training Program; Visit Provider Urology
DX: R10.9 Unspecified abdominal pain (principal); N20.0 Calculus of kidney
CPT/HCPCS: 99213

== ENCOUNTER → 2024-02-14 16:00 | Outpatient (BNVA) | payer MEDICAID, SELFPAY | PROVIDERS: PCP Student in an Organized Health Care Education/Training Program; Visit Provider Urology ==

== ENCOUNTER 2024-02-17 10:08 | Outpatient (AMB) | payer MEDICAID, SELFPAY ==
--- NOTE | 2024-02-17 10:14 | A.OFFVIS_ITS ---
Intake Vital Signs 02/17/24 10:27 Height 5 ft 8 in Weight 163 lb BMI 24.8 BP 120/61 Blood Pressure Location Lt brachial Position Sitting Pulse 81 Intake Visit Reasons: Rediscuss procedure/Meds. Intake Note: Patient follow up for acid reflex and Colonoscopy/EGD screening consult. Patient cc: N/V, abdominal pain with bloating, acid reflex with burning sensation, and no appetite. Hemodialysis Charge Nurse Required: No Accompanied by: Self / Same As Patient Allergies Iodinated Contrast Media [IV DYE, IODINE CONTAINING] Allergy (Unknown, Verified 02/17/24 10:14) HIVES Medication List - Last Reconciled 02/17/24 by Jackie Menchaca PA-C albuterol sulfate 2.5 mg inhalation DAILY PRN albuterol sulfate 90 mcg/actuation (Ventolin HFA) 2 puffs inhalation Q4H PRN amlodipine 10 mg PO BEDTIME aspirin 1 tab PO QAM atorvastatin 20 mg PO QAM cetirizine 10 mg PO QAM clonidine HCl 0.1 mg PO BEDTIME PRN clopidogrel 75 mg PO QAM dapagliflozin propanediol (Farxiga) 10 mg PO QAM dextroamphetamine-amphetamine 20 mg ER (Adderall XR) 1 cap PO QAM diclofenac sodium 1% 2 grams topical QID dulaglutide (Trulicity) 0.75 mg subcut FR fluticasone propion-salmeterol 250-50 mcg/dose (Advair Diskus) 1 ea inhalation BID gabapentin 200 mg PO TID insulin detemir U-100 30 units subcut BEDTIME insulin lispro 20 units subcut TID melatonin 5 mg PO BEDTIME metformin 500 mg PO QAM montelukast 1 tab PO QPM multivitamin 1 tab PO DAILY pantoprazole 20 mg PO QAM 30 days potassium chloride ER 1 tab PO DAILY umeclidinium 62.5 mcg/actuation (Incruse Ellipta) 1 inh inhalation DAILY valsartan-hydrochlorothiazide 320-25 mg 1 tab PO DAILY HPI HPI Comments History of Present Illness Details 53-year-old female multiple comorbiditie s, follows up-last seen in November for screening colonoscopy and acid reflux We held off on procedures she was undergoing vascular consult-she said she was seen, everything is well she follows up in 1 year she continues clopidogrel She presents today- says she has nausea and vomiting x 3 days-acid reflux has been worse- Trulicity x 3 mos-Dr. Martins- Bowels are good-she is anxious to have colonoscopy she is overdue. Colonoscopy [place] more than 10 years ago if she recall She has no abdominal pain, hematemesis, hematochezia fever or chills [facility] Medical History Hematuria Abdominal pain, right lower quadrant Flank pain Elevated WBC count Acidosis, lactic Sepsis 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 PAD (peripheral artery disease) Mild acid reflux Raynauds disease Insulin dependent type 2 diabetes mellitus Peripheral neuropathy Non-insulin dependent type 2 diabetes mellitus Hypertension Surgical History S/P cholecystectomy S/P appendectomy History of esophagogastroduodenoscopy (EGD) Hx of colonoscopy Amputated left leg Family History Mother Acute eczema HTN (hypertension) Diabetes Family/Other Cancer Social History Household Members: Family Housing: Apartment Do you presently have visiting nurse or other home services: No Alcohol intake: never Patient Tobacco Use Status: Former Tobacco user Quit Date: 2006 Tobacco use type: Cigarette Second Hand Smoke Exposure: No service: No Current occupational status: disabled Review of Systems Const All systems reviewed & are unremarkable except as noted in HPI and below ENT Denies dysphagia Card Denies chest pain and Denies dyspnea Resp Denies dyspnea GI Denies abdominal pain, Denies change in bowel habits, Denies dysphagia, Reports early satiety, Reports heartburn, Reports nausea and Reports vomiting Physical Exam Vital Signs: Last Vital Signs Pulse 81 02/17/24 10:27 BP 120/61 02/17/24 10:27 BMI result Body Mass Index 24.8 Const General: cooperative, healthy appearing, comfortable and no acute distress Orientation/consciousness: patient oriented x3 Limitations: wheelchair Neuro General: patient oriented x3 Extrem Other: [place] Psych Appearance: grossly normal and well kempt Mental Status: mental status grossly normal Speech and movement: Normal speech and movement present and Clear speech present Affect: normal affect Attitude: cooperative Thought process: Normal thought process present Thought content: Normal thought content present Insight: Good insight present (Psych) Judgement: Good judgement present (Psych) Assessment & Plan Assessment & Plan (1) FPC current use of anticoagulant: Comment: Very pleasant independent, 53-year-old female left AKA-wheelchair assisted EGD/ colon- when appropriate plavix d/c 7 days prior- if authorized- by vascular Trulicity-( )- must stop 1 full wk prior- 1/2 dose insulin olga before- omit metformin No DM meds morning of procedure Code(s): Z79.01 - FPC (current) use of anticoagulants Plan: get authorized (2) Acid reflux: Code(s): K21.9 - Gastro-esophageal reflux disease without esophagitis Plan: Increased to pantoprazole 40 mg (3) Diabetes: Comment: Likely early satiety/gastroparesis Trulicity may play a role Code(s): E11.9 - Type 2 diabetes mellitus without complications Plan: GES- EGD (4) Early satiety: Code(s): R68.81 - Early satiety (5) Nausea and vomiting: Comment: Acid reflux, likely gastroparesis Code(s): R11.2 - Nausea with vomiting, unspecified (6) Encounter for screening colonoscopy: Code(s): Z12.11 - Encounter for screening for malignant neoplasm of colon Plan: Screening colonoscopy Plan GES EGD/ colon- Anesthesia consult-COPD MG prep plavix d/c 7 days prior- if authorized- by vascular Trulicity-( )- must stop 1 full wk prior- Farixiga--stop 3 days 1/2 dose insulin olga before- omit metformin No DM meds morning of procedure Orders: Orders NM gastric emptying study Today E11.9 - Type 2 diabetes mellitus without complications, K21.9 - Gastro-esophageal reflux disease without esophagitis, R11.2 - Nausea with vomiting, unspecified, R68.81 - Early satiety EGD/[place] Combo - GI Use Only Today K21.9 - Gastro-esophageal reflux disease without esophagitis, R11.2 - Nausea with vomiting, unspecified, R68.81 - Early satiety, Z12.11 - Encounter for screening for malignant neoplasm of colon, Z79.01 - FPC (current) use of anticoagulants Medications: New polyethylene glycol 3350 (Miralax) Take as directed by mouth the day before your procedure. 238 grams PO ONCE 1 day PRN 238 grams 0RF laxative effect bisacodyl (Dulcolax (bisacodyl)) Day before procedure @ 12 noon Take 4 tablets by mouth followed by large glass of water 20 mg (4 x 5 mg) PO ONCE 1 day PRN 4 tabs 0RF colonoscopy prep Z12.11 - Encounter for screening for malignant neoplasm of colon Changed From pantoprazole 20 mg PO QAM 30 days 30 tabs 6RF To pantoprazole 40 mg (2 x 20 mg) PO QAM 30 days 60 tabs 6RF Patient Instructions: Reflux precautions reviewed Pantoprazole 40 mg daily hopefully gives better coverage Small portions throughout the day as opposed to 3 large meals Remain upright 2-3 hours after eating, especially evening meal GES-patient to call for results EGD/ colon-anesthesia consult- COPD plavix d/c 7 days prior- if authorized- by vascular Trulicity-( )- must stop 1 full wk prior- 1/2 dose insulin olga before- omit metformin No DM meds morning of procedure Call with any questions or concerns Coding Level of Care Code Est Pt Level 3 (76062) 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
[2024-02-17 10:27] VITALS: BP 120/61; PULSE 81; BMI 24.8
== END 2024-02-17 11:41 | disposition home or self-care (01) ==
PROVIDERS: PCP Student in an Organized Health Care Education/Training Program; Visit Provider Physician Assistant
DX: Z79.01 Long term (current) use of anticoagulants (principal); K21.9 Gastro-esophageal reflux disease without esophagitis; E11.9 Type 2 diabetes mellitus without complications; R68.81 Early satiety; R11.2 Nausea with vomiting, unspecified; Z12.11 Encounter for screening for malignant neoplasm of colon
CPT/HCPCS: 99213

== ENCOUNTER → 2024-02-17 10:08 | Outpatient (BNVA) | payer MEDICAID, SELFPAY | PROVIDERS: PCP Student in an Organized Health Care Education/Training Program; Visit Provider Physician Assistant | DX: K21.9 Gastro-esophageal reflux disease without esophagitis (principal); E11.9 Type 2 diabetes mellitus without complications; R68.81 Early satiety; R11.2 Nausea with vomiting, unspecified; Z90.49 Acquired absence of other specified parts of digestive tract; Z79.01 Long term (current) use of anticoagulants; Z79.4 Long term (current) use of insulin; Z12.11 Encounter for screening for malignant neoplasm of colon | CPT/HCPCS: 99212 ==

== ENCOUNTER → 2024-02-18 08:15 | Outpatient (REF) | payer MEDICAID, SELFPAY ==
--- NOTE | ~2024-02-18 | XR_ITS ---
EXAMINATION: XR chest 2V CLINICAL INFORMATION: Reason for Exam hx of lung nodules to eval COMPARISON: Chest CT dated 10/19/2022 TECHNIQUE: 2 views of the chest FINDINGS: Clear lungs. No pneumothorax or pleural effusion. Normal cardiomediastinal silhouette. XR/XR chest 2V Impression: * Clear lungs. Previously seen pulmonary nodules on prior CT are not within the limits of resolution for evaluation with conventional radiographs.
== END ==
LOC: HO.SL 08:15
PROVIDERS: PCP Student in an Organized Health Care Education/Training Program; Visit Provider Nurse Practitioner Family
DX: R06.83 Snoring (principal); G47.30 Sleep apnea, unspecified; R91.1 Solitary pulmonary nodule
CPT/HCPCS: 71046; 95806

== ENCOUNTER → 2024-02-18 08:30 | Outpatient (BNV) | payer MEDICAID, SELFPAY | PROVIDERS: PCP Student in an Organized Health Care Education/Training Program; Visit Provider Psychiatry & Neurology Neurology | DX: R06.83 Snoring (principal); R40.0 Somnolence | CPT/HCPCS: 95806 ==

== ENCOUNTER 2024-03-09 12:16 | Outpatient (REF) | payer MEDICAID, SELFPAY ==
--- NOTE | ~2024-03-09 | MM_ITS ---
EXAMINATION: MM DIAGNOSTIC DIGITAL BREAST TOMOSYNTHESIS, LEFT CLINICAL INFORMATION: The patient presents for recommended short interval six-month follow-up of calcifications located in the lower outer quadrant of the left breast. COMPARISON: Mammography: This study is compared with prior mammograms dating back to 2022. TECHNIQUE: Digital breast tomosynthesis is performed in both the craniocaudal and mediolateral oblique views along with computer-aided detection (CAD). Synthesized 2D images are generated from the tomosynthesis. CC and lateral magnification imaging of the left breast and a full lateral view of the left breast were obtained. FINDINGS: There are scattered areas of fibroglandular density (ACR BI-RADS breast composition Category b). There are no significant masses, abnormal calcifications, or other abnormalities. The previously noted calcifications in the lower outer quadrant of the left breast have not changed. They're probably benign and short interval six-month follow-up mammography is advised. At that time, the patient will be due for annual mammographic screening of the right breast. MM/MM tomosynthesis diagnostic LT IMPRESSION: There are no significant changes from prior study. No mammographic signs of malignancy. Probably benign calcifications of the left breast warrant continued short interval six-month follow-up mammography to document lack of significant change. ASSESSMENT: BI-RADS BI-RADS 3 - Probably benign finding(s) - 6 month follow-up suggested RECOMMENDATION: 6 Month F/U Results were provided to the patient at time of visit by the technologist. This patient's information was entered into a reminder system with a target due date for their next mammogram.
== END 2024-03-09 12:17 | disposition home or self-care (01) ==
LOC: HO.MAMMO 12:16
PROVIDERS: PCP Student in an Organized Health Care Education/Training Program; Visit Provider Student in an Organized Health Care Education/Training Program
DX: R92.1 Mammographic calcification found on diagnostic imaging of breast (principal)
CPT/HCPCS: 77061; 77065

== ENCOUNTER → 2024-03-09 12:56 | Outpatient (BNV) | payer MEDICAID, SELFPAY | PROVIDERS: PCP Student in an Organized Health Care Education/Training Program; Visit Provider Radiology Diagnostic Radiology | DX: R92.1 Mammographic calcification found on diagnostic imaging of breast (principal) | CPT/HCPCS: 77061; 77065 ==

== ENCOUNTER → 2024-04-02 07:52 | Outpatient (REF) | payer MEDICAID, SELFPAY ==
--- NOTE | ~2024-04-02 | NM_ITS ---
EXAMINATION: [place] RADIONUCLIDE SOLID FOOD GASTRIC EMPTYING 4-HOUR STUDY CLINICAL INFORMATION: Gastroesophageal reflux disease without esophagitis. COMPARISON: None TECHNIQUE: A standard meal consisting of 4 oz of Egg Beaters brand tagged with 1000 microcuries Tc-99m Sulfur Colloid, 8 oz water and 2 slices of toast with jelly was administered orally to the patient. Images were obtained using a dual head gamma camera in the anterior and posterior projections over of the stomach immediately post ingestion and at hourly intervals up to 4 hours post ingestion. The anterior and posterior counts at each time interval were averaged using the geometric mean and expressed as percentage of the immediate post ingestion counts. FINDINGS: There is good visualization of activity in the stomach immediately post ingestion. As the study progresses, there is delayed clearance of activity from the stomach and delayed visualization of progressively increasing small bowel activity. By the end of the study, there is significant retention noted in the stomach. Retention in the stomach at each time interval was: : 1 hour 73% (normal 37%-90%) 2 hours 66% (normal 30%-60%) 3 hours 60% 4 hours 27% (normal 0%-10%) AZ/AZ gastric emptying study IMPRESSION: Abnormal grade 2 delayed 4 hour gastric emptying study. (For solid meal, rapid gastric emptying is less than 30% at 60 minutes. Delayed gastric emptying criteria is more than 60% remaining at 120 minutes or more than 10% at 240 minutes. The 4-hour value is the best discriminator of a normal or abnormal result). Gastric emptying study grading per JNMT Consensus Recommendations in 2008 (https://tech.snmjournals.org/content/36/1/44) Grade 1 (mild retention): 11-20% at 4h Grade 2 (moderate retention): 21-35% at 4h Grade 3 (severe retention): 36-50% at 4h Grade 4 (very severe retention): >50% retention at 4h
== END ==
LOC: HO.NUCMED 07:52
PROVIDERS: PCP Student in an Organized Health Care Education/Training Program; Visit Provider Physician Assistant
DX: R68.81 Early satiety (principal); K21.9 Gastro-esophageal reflux disease without esophagitis; R11.2 Nausea with vomiting, unspecified; E11.9 Type 2 diabetes mellitus without complications
CPT/HCPCS: 78264; A9541

== ENCOUNTER 2024-04-07 19:43 | Outpatient (REF) | payer MEDICAID, SELFPAY ==
[2024-04-08 04:29] LABS: CT PCR NOT DETECTED (Not Detect.); NG PCR NOT DETECTED (Not Detect.)
[2024-04-16 07:59] LABS: HPV mRNA E6/E7 rflx Not Detected (Not Detected)
== END 2024-04-07 19:44 | disposition home or self-care (01) ==
LOC: HO.HHCLNP 19:43
PROVIDERS: Visit Provider Student in an Organized Health Care Education/Training Program
DX: Z12.4 Encounter for screening for malignant neoplasm of cervix (principal); Z11.51 Encounter for screening for human papillomavirus (HPV); Z11.3 Encounter for screening for infections with a predominantly sexual mode of transmission
CPT/HCPCS: 0353U; 87624; 88142

== ENCOUNTER 2024-05-04 09:49 | Outpatient (REF) | payer MEDICAID, SELFPAY ==
[2024-05-04 12:18] LABS: MANUAL DIFF FLAG NO
[2024-05-04 12:22] LABS: Basophils Absolute Auto 0.1 X10*3/uL (0.0-0.2); Basophils Percent Auto 0.7 % (0-2); Eosinophils Absolute Auto 0.3 X10*3/uL (0.0-0.4); Eosinophils Percent Auto 2.3 % (0-4); Hematocrit 44.9 % (37.0-47.0); Hemoglobin 14.5 g/dl (12.0-16.0); Imm Gran Abs Auto 0.03 X10*3/uL (0.00-0.03); Imm Gran Pct Auto 0.3 % (0.0-0.4); Lymphocytes Absolute Auto 3.1 X10*3/uL (1.2-4.9); Lymphocytes Percent Auto 28.8 % (20-40); Mean Corpuscular HGB Conc 32.3 g/dl (31.0-35.0); Mean Corpuscular Hemoglobin 27.5 pg (27.0-33.0); Mean Corpuscular Volume 85.2 fL (80.0-98.0); Mean Platelet Volume 10.2 fL (9.4-12.3); Monocytes Absolute Auto 0.7 X10*3/uL (0.1-1.2); Monocytes Percent Auto 6.5 % (2-11); Neutrophils Absolute Auto 6.6 x10*3/uL (2.0-8.3); Neutrophils Percent Auto 61.4 % (45-73); Platelet Count 387 X10*3/uL (160-400); Red Blood Count 5.27 X10*6/uL (4.20-5.50); Red Cell Distribution Width 13.2 % (11.0-16.0); White Blood Count 10.7 X10*3/uL (4.8-10.8)
[2024-05-04 12:47] LABS: Estimated Average Glucose 137 mg/dL; Hemoglobin A1c % 6.4 % (<6.0)
[2024-05-04 12:50] LABS: Alanine Aminotransferase 16 U/L (0-31); Albumin Level 4.4 g/dL (3.5-5.0); Alkaline Phosphatase 129 U/L (39-117); Anion Gap 13 (12-20); Aspartate Amino Transferase 17 U/L (5-31); Bilirubin Total 0.8 mg/dL (0.0-1.0); Blood Urea Nitrogen 8 mg/dL (9-16); Calcium 10.1 mg/dL (8.4-10.2); Carbon Dioxide 28 mmol/L (22-29); Chloride 102 mmol/L (96-108); Cholesterol 142 mg/dL (<200); Estimated Glomerular Filt Rate > 60; Gamma Glutamyl Transpeptidase 62 U/L (7-33); Glucose Random 128 mg/dL (60-115); HDL Cholesterol 36 mg/dL (>40); LDL Cholesterol Calculated 60 mg/dL (<100); Potassium 3.4 mmol/L (3.3-5.1); Sodium 140 mmol/L (135-145); Total Protein 7.6 g/dL (6.5-8.0); Triglycerides 230 mg/dL (<150)
[2024-05-04 13:12] LABS: Folate 11.2 ng/mL (> or = 4.0); Vitamin B12 287 pg/mL (200-900)
[2024-05-04 13:18] LABS: Vitamin D 25-OH Total 34.6 ng/mL (>30)
[2024-05-07 17:29] LABS: Alkaline Phosphatase Bone 33.1 mcg/L (5.6-29.0)
== END 2024-05-04 09:50 | disposition home or self-care (01) ==
LOC: HO.HHCL 09:49
PROVIDERS: Visit Provider Student in an Organized Health Care Education/Training Program
DX: E11.59 Type 2 diabetes mellitus with other circulatory complications (principal); Z79.4 Long term (current) use of insulin; R74.8 Abnormal levels of other serum enzymes
CPT/HCPCS: 36415; 80053; 80061; 82306; 82607; 82746; 82977; 83036; 84075; 85025

== ENCOUNTER 2024-05-07 18:14 | Outpatient (REF) | payer MEDICAID, SELFPAY ==
[2024-05-07 18:30] LABS: Microalbum/Creatinine Ratio Ur 13.7 ug/mg cr (<30)
== END 2024-05-07 18:15 | disposition home or self-care (01) ==
LOC: HO.HHCLNP 18:14
PROVIDERS: Visit Provider Student in an Organized Health Care Education/Training Program
DX: Z00.00 Encounter for general adult medical examination without abnormal findings (principal)
CPT/HCPCS: 82043; 82570

== ENCOUNTER 2024-05-21 11:20 | Outpatient (REF) | payer MEDICAID, SELFPAY ==
--- NOTE | ~2024-05-21 | XR_ITS ---
EXAMINATION: XR TOES, RIGHT CLINICAL INFORMATION: Trauma, wheelchair rolled over right second and third toes last night. COMPARISON: None available. TECHNIQUE: 3 views of the right toes were obtained. XR/XR toe RT min 2V FINDINGS AND IMPRESSION: Bones have normal alignment throughout the foot. No acute fracture or subluxation. 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 Correlate for remote history of surgical resection or trauma to this toe. Multiple surgical clips project over the medial aspect of the ankle and hindfoot region.
== END 2024-05-21 11:21 | disposition home or self-care (01) ==
LOC: HO.HHCX 11:20
PROVIDERS: Visit Provider Family Medicine
DX: S99.921A Unspecified injury of right foot, initial encounter (principal); X58.XXXA Exposure to other specified factors, initial encounter; Y93.9 Activity, unspecified; Y92.9 Unspecified place or not applicable; Y99.9 Unspecified external cause status
CPT/HCPCS: 73660

== ENCOUNTER 2024-07-15 09:05 | Outpatient (REF) | payer MEDICAID, SELFPAY | END 2024-07-15 09:06 | disposition home or self-care (01) | LOC: HO.MAMMO 09:05 | PROVIDERS: PCP Student in an Organized Health Care Education/Training Program; Visit Provider Student in an Organized Health Care Education/Training Program | DX: Z13.89 Encounter for screening for other disorder (principal) ==

== ENCOUNTER 2024-09-01 14:42 | Outpatient (REF) | payer MEDICAID, SELFPAY | END 2024-09-01 14:43 | disposition home or self-care (01) | LOC: HO.HHCLNP 14:42 | PROVIDERS: Visit Provider Nurse Practitioner | DX: J02.9 Acute pharyngitis, unspecified (principal) | CPT/HCPCS: 87070 ==

== ENCOUNTER 2024-09-14 10:24 | Outpatient (REF) | payer MEDICAID, SELFPAY ==
--- NOTE | ~2024-09-14 | MM_ITS ---
EXAMINATION: MM DIAGNOSTIC DIGITAL BREAST TOMOSYNTHESIS, BILATERAL CLINICAL INFORMATION: Six-month follow-up for left breast calcifications upper outer quadrant, middle one third, probably benign in morphology. Patient also due for yearly. COMPARISON: Mammography: 03/09/2024, 08/21/2023, 07/10/2023 (BI-RADS 0). TECHNIQUE: Digital breast tomosynthesis is performed in both the craniocaudal and mediolateral oblique views along with computer-aided detection (CAD). Synthesized 2D images are generated from the tomosynthesis. In addition to standard views, 2-D spot magnification left CC and ML views were obtained. FINDINGS: There are scattered areas of fibroglandular density (ACR BI-RADS breast composition Category b). 4 grouped calcifications in the upper outer quadrant left breast, middle one third, remain unchanged in number and morphology . No aggressive changes. These have remained stable over a year, do not meet biopsy threshold, and given lack of interval change are benign. No further follow-up recommended. Otherwise, there are no suspicious masses, developing suspicious grouped calcifications, or areas of architectural distortion in either breast. The parenchymal pattern is stable from prior exams. There is no skin or axillary abnormality. MM/MM tomosynthesis diagnostic BI IMPRESSION: -Grouped calcifications upper outer quadrant left breast are benign. No further follow-up recommended. -There are no findings suspicious for malignancy in either breast. -Recommend the patient return to routine annual screening in one year. ASSESSMENT: BI-RADS BI-RADS 2 - Benign Findings RECOMMENDATION: 1 year F/U Results were provided to the patient at time of visit by the technologist. This patient's information was entered into a reminder system with a target due date for their next mammogram. Electronically signed by: Andresa Wall MD 09/14/2024 12:13 PM PADMINI WANG
== END 2024-09-14 10:25 | disposition home or self-care (01) ==
LOC: HO.MAMMO 10:24
PROVIDERS: PCP Student in an Organized Health Care Education/Training Program; Visit Provider Student in an Organized Health Care Education/Training Program
DX: R92.1 Mammographic calcification found on diagnostic imaging of breast (principal)
CPT/HCPCS: 77062; 77066

== ENCOUNTER → 2024-09-14 11:00 | Outpatient (BNV) | payer MEDICAID, SELFPAY | PROVIDERS: PCP Student in an Organized Health Care Education/Training Program; Visit Provider Radiology Diagnostic Radiology | DX: R92.1 Mammographic calcification found on diagnostic imaging of breast (principal) | CPT/HCPCS: 77062; 77066 ==

== ENCOUNTER 2024-11-08 18:02 | Emergency (ER) | payer MEDICAID, SELFPAY ==
--- NOTE | ~2024-11-08 | CT_ITS ---
CLINICAL HISTORY: Right flank pain CT abdomen and pelvis without contrast Comparison: CT of the abdomen and pelvis from 12/30/2023. Findings: No obstructing stone of either kidney or either ureter. Mild bilateral nephrolithiasis measure up to 0.3 cm. No change in exophytic cystic lesion of the left kidney or additional cystic lesions in the kidneys not further characterize without contrast. Mild volume loss of the pancreas is noted. Spleen approaches the upper limits of normal. The gallbladder is surgically absent. Redemonstration of the steatotic change of the liver. Adrenal glands are unchanged. Small mesenteric lymph nodes are nonspecific. No small bowel obstruction. Severe stool burden is present, including the cecum. The appendix is not definitively seen and likely surgically absent given postprocedural changes in the right lower quadrant. Uterus is enlarged and deviates to the left with likely multiple fibroids. One measures proximally 5 cm superiorly by noncontrast CT. Phleboliths are noted in the pelvis. No definite adnexal soft tissue mass by noncontrast CT. Urinary bladder is unremarkable. Degenerative changes include the hips, SI joints, and spine. No definite hardware loosening of lumbosacral hardware and/or instrumentation. Dorsal device with superior directed leads. Leads are likely epidural as imaged in the [id number] imaged spine. Coccyx fracture and angulation appears old. Dorsal fluid is likely postprocedural including filling laminectomy defects. IMPRESSION: 1. Bilateral nephrolithiasis measure up to 0.3 cm. No obstructing stone in either kidney or either ureter at this time. 2. Fibroids of the uterus. 3. Severe stool burden. No small bowel obstruction. This document has been electronically signed by: Ty Parra MD on 11/09/2024 03:02:04
[2024-11-08 18:14] VITALS: BP 147/76; PULSE 96; RESP 16; TEMP 36.6; O2SAT 97; BMI 23.3
--- NOTE | 2024-11-08 18:15 | ED.GENADULT ---
HPI - General Adult General Chief complaint: Urogenital-Female Stated complaint: headache, pain when urinating Time Seen by Provider: 11/08/24 22:39 Source: patient Mode of arrival: ambulatory Limitations: no limitations History of Present Illness ED Provider: HPI narrative: Patient has remote history of kidney stone complaining of pain in the right flank area and painful to urinate for last 2 days got worse today feel nauseated vomited few times no fever no chills no gross hematuria Related Data Home Medications ?Medication ?Instructions ?Recorded ?Confirmed insulin lispro 100 unit/mL 20 unit subcut TID 10/20/22 12/26/23 subcutaneous pen montelukast 10 mg tablet 1 tab PO QPM 10/20/22 12/26/23 potassium chloride 10 mEq 1 tab PO DAILY 10/20/22 12/26/23 tablet,extended release valsartan 320 1 tab PO DAILY 10/20/22 12/26/23 mg-hydrochlorothiazide 25 mg tablet albuterol sulfate 90 mcg/actuation 2 puff inhalation Q4H PRN wheezing 05/06/23 12/26/23 aerosol inhaler (Ventolin HFA) cetirizine 10 mg tablet 10 mg PO QAM 05/06/23 12/26/23 clonidine HCl 0.1 mg tablet 0.1 mg PO BEDTIME PRN Anxiety 05/06/23 12/26/23 clopidogrel 75 mg tablet 75 mg PO QAM 05/06/23 12/26/23 fluticasone 250 mcg-salmeterol 50 1 ea inhalation BID 05/06/23 12/26/23 mcg/dose blistr powdr for inhalation (Advair Diskus) metformin 500 mg tablet 500 mg PO QAM 05/06/23 12/26/23 albuterol sulfate 2.5 mg/3 mL 2.5 mg inhalation DAILY PRN 08/08/23 12/26/23 (0.083 %) solution for nebulization wheezing atorvastatin 20 mg tablet 20 mg PO QAM 08/08/23 12/26/23 dapagliflozin propanediol 10 mg 10 mg PO QAM 08/08/23 12/26/23 tablet (Farxiga) amlodipine 10 mg tablet 10 mg PO BEDTIME 09/05/23 12/26/23 aspirin 81 mg chewable tablet 1 tab PO QAM 09/05/23 12/26/23 umeclidinium 62.5 mcg/actuation 1 inh inhalation DAILY 09/05/23 12/26/23 blister powder for inhalation (Incruse Ellipta) dextroamphetamine-amphetamine ER 1 cap PO QAM 11/25/23 12/26/23 20 mg 24hr capsule,extend release (Adderall XR) dulaglutide 0.75 mg/0.5 mL 0.75 mg subcut FR 11/25/23 12/26/23 subcutaneous pen injector (Trulicity) melatonin 5 mg tablet 5 mg PO BEDTIME 11/25/23 12/26/23 diclofenac sodium 1 % topical gel 2 g topical QID pain 12/26/23 12/26/23 gabapentin 100 mg capsule 200 mg PO TID 12/26/23 12/26/23 insulin detemir U-100 100 unit/mL 30 unit subcut BEDTIME 12/26/23 12/26/23 (3 mL) subcutaneous pen multivitamin 1 tab PO DAILY 12/26/23 12/26/23 Previous Rx's ?Medication ?Instructions ?Recorded bisacodyl 5 mg tablet,delayed 20 mg (4 x 5 mg) PO ONCE PRN 02/17/24 release (Dulcolax (bisacodyl)) colonoscopy prep 1 day #4 tabs polyethylene glycol 3350 17 238 g PO ONCE PRN laxative effect 02/17/24 gram/dose oral powder (Miralax) 1 day #238 grams pantoprazole 40 mg tablet,delayed 40 mg PO QAM #30 tabs 08/28/24 release cefuroxime axetil 250 mg tablet 250 mg PO BID 7 days #14 tabs 11/09/24 Allergies Allergy/AdvReac Type Severity Reaction Status Date / Time Iodinated Contrast Media Allergy Unknown HIVES Verified 11/08/24 18:15 [IV DYE, IODINE CONTAINING] [facility] Past Medical History Medical History (Updated 11/09/24 @ 03:10 by Harry Wu MD) Hematuria Abdominal pain, right lower quadrant Flank pain Elevated WBC count Acidosis, lactic 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 PAD (peripheral artery disease) Mild acid reflux Raynauds disease Insulin dependent type 2 diabetes mellitus Peripheral neuropathy Non-insulin dependent type 2 diabetes mellitus Hypertension Sepsis Surgical History (Updated 06/25/24 @ 15:47 by Radha Meyers RN) S/P placement of nerve stimulator S/P cholecystectomy S/P appendectomy History of esophagogastroduodenoscopy (EGD) Hx of colonoscopy Amputated left leg Family History Family History Mother Acute eczema HTN (hypertension) Diabetes Family/Other Cancer Social History Social History Household Members: Family Housing: Apartment Do you presently have visiting nurse or other home services: No Alcohol intake: never Patient Tobacco Use Status: Former Tobacco user Tobacco use type: Cigarette Smoked in Last 30 Days: No Second Hand Smoke Exposure: No Use of substances other than those prescribed or required for medical reasons: No Advance Directives: Yes Advance Directives on File: Yes Advance Directives Date on File: 12/31/23 service: No Current occupational status: disabled Physical Exam ED Vital Signs: Vital Signs - 24 hr 11/08/24 18:14 11/08/24 22:00 11/09/24 01:07 Temperature 97.9 F 97.7 F Pulse Rate 96 69 Respiratory Rate 16 16 18 Blood Pressure 147/76 H 120/62 Pulse Oximetry 97 93 Oxygen Delivery Method Room Air Room Air 11/09/24 03:32 Temperature 97.6 F Pulse Rate 72 Respiratory Rate 14 Blood Pressure 128/62 Pulse Oximetry 96 Oxygen Delivery Method Room Air BMI result Body Mass Index 23.3 Appearance: Alert. Oriented X3. No acute distress. Eyes: PERRLA, No Nystagmus ENT: Pharynx normal. Oral Mucosa moist Neck: Normal inspection. Neck supple. CVS: Normal heart rate and rhythm. Pulses normal. Respiratory: No respiratory distress. Equal air entry bilateral, no wheezing/rales/rhonchi Abdomen: Soft and nontender. Bowel sounds are present, no mass palpable, R CVA tenderness Skin: Skin warm and dry. Normal skin color. Normal skin turgor. Extremities: No lower extremity edema. No calf tenderness Neuro: Oriented X 3. No motor deficit. No sensory deficit.No cerebellar signs , cranial nerves II-XII intact Course Course Course Narrative: This is a Rapid Medical Examination (RME) performed by Carlos Melendez PA-C in triage. Full HPI, ROS, assessment and treatment plan per primary provider in the Main ED. 54 yo female hx of HTN, T2DM with peripheral neuropathy, PAD, GERD, nephrolithiasis here for eval of headache, nausea, vomiting, right flank pain, dysuria, and voiding small amounts x2 days. Plan: labs, UA Medications Administered Discontinued Medications Generic Name Dose Route Start Last Admin Trade Name Freq PRN Reason Stop Dose Admin Ceftriaxone Sodium 1 gm 11/08/24 23:39 11/08/24 23:57 Ceftriaxone Sodium 1 Gm Vial IVPUSH 11/08/24 23:40 1 gm ONCE ONE Administration Sodium Chloride 1,000 mls @ 999 mls/hr 11/08/24 23:39 11/09/24 01:00 Ns IV 11/09/24 00:39 Infused .Q1H1M ONE Infusion Ketorolac Tromethamine 30 mg 11/08/24 23:39 11/08/24 23:57 Ketorolac Tromethamine 30 Mg/Ml Vial IVPUSH 11/08/24 23:40 30 mg ONCE ONE Administration Morphine Sulfate 4 mg 11/09/24 02:12 11/09/24 02:43 Morphine Sulfate 4 Mg/Ml Cartridge IVPUSH 11/09/24 02:13 4 mg ONCE ONE Administration Protocol Ondansetron HCl 4 mg 11/08/24 23:39 11/08/24 23:55 Ondansetron Hcl 4 Mg/2 Ml Vial IVPUSH 11/08/24 23:40 4 mg ONCE ONE Administration Ondansetron HCl 4 mg 11/09/24 02:12 11/09/24 02:42 Ondansetron Hcl 4 Mg/2 Ml Vial IVPUSH 11/09/24 02:13 Not Given ONCE ONE Medical Decision Making Medical Decision Making [facility] Narrative: Patient's history of kidney stone with right flank pain awaiting for the CT scan to rule out kidney stone history of IV hydration and pain medication CT scan negative for obstructive kidney stone will discharge patient home on cefuroxime I received sign-out from my colleague Dr. Wu Bilateral nephrolithiasis, no ureterolithiasis, no obstructing stones in either kidney or ureter. Differential Diagnosis Differential Diagnoses: The differential diagnosis associated with the presentation includes Kidney stone/UTI Admission/Observation Consideration of admission/observation: Escalation of care including admission/observation considered Lab Data [facility] Lab Attestation statement: I reviewed the patient's lab results. 11/08/24 18:36 11/08/24 18:36 Labs: Lab Results 11/08/24 11/09/24 Range/Units 18:36 00:15 WBC 11.0 H (4.8-10.8) X10*3/uL RBC 5.20 (4.20-5.50) X10*6/uL Hgb 14.4 (12.0-16.0) g/dl Hct 43.7 (37.0-47.0) % MCV 84.0 (80.0-98.0) fL MCH 27.7 (27.0-33.0) pg MCHC 33.0 (31.0-35.0) g/dl RDW 12.4 (11.0-16.0) % Plt Count 329 (160-400) X10*3/uL MPV 9.6 (9.4-12.3) fL Immature Gran % (Auto) 0.4 (0.0-0.4) % Neut % (Auto) 52.4 (45-73) % Lymph % (Auto) 35.8 (20-40) % [place] % (Auto) 8.1 (2-11) % Eos % (Auto) 2.8 (0-4) % Baso % (Auto) 0.5 (0-2) % Lymph # (Auto) 4.0 (1.2-4.9) X10*3/uL [place] # (Auto) 0.9 (0.1-1.2) X10*3/uL Eos # (Auto) 0.3 (0.0-0.4) X10*3/uL Baso # (Auto) 0.1 (0.0-0.2) X10*3/uL Abs Immat Gran (auto) 0.04 H (0.00-0.03) X10*3/uL Absolute Neuts (auto) 5.8 (2.0-8.3) x10*3/uL Absolute Nucleated RBC 0.000 (0.0-0.012) X10*3/uL Nucleated RBC % (auto) 0.0 (0.0-0.2) /100WBC Sodium 140 (135-145) mmol/L Potassium 3.5 (3.3-5.1) mmol/L Chloride 105 (96-108) mmol/L Carbon Dioxide 27 (22-29) mmol/L Anion Gap 12 (12-20) BUN 6 L (9-16) mg/dL Creatinine 0.70 (0.5-1.4) mg/dL Estim Creat Clear Calc 90.5 Estimated GFR > 60 POC Glucose 134 H (60-115) mg/dL Random Glucose 131 H (60-115) mg/dL Calcium 9.4 D (8.4-10.2) mg/dL Magnesium 1.6 (1.6-2.6) mg/dL Total Bilirubin 0.5 (0.0-1.0) mg/dL AST 21 (5-31) U/L ALT 26 (0-31) U/L Alkaline Phosphatase 164 H (39-117) U/L Total Protein 7.3 (6.5-8.0) g/dL Albumin 4.4 (3.5-5.0) g/dL Lipase 23 (8-78) U/L Urine Color Dark Yellow Urine Appearance Clear Urine pH 5.5 (5.0-9.0) Ur Specific [place] 1.025 (1.005-1.025) Urine Protein Trace (Neg-Trace) mg/dL Urine Glucose (UA) 500 H (Negative) mg/dL Urine Ketones Trace (Negative) mg/dL Urine Blood Negative (Negative) Urine Nitrite Negative (Negative) Ur Leukocyte Esterase Small (1+) H (Negative) Urine RBC 3-5 H (0-2) /HPF Urine WBC 6-10 (0-5) /HPF Ur Squamous Epith Cells 3-5 (0-2) /HPF Calcium Oxalate Crystal Present Urine Bacteria None Seen (None Seen) Hyaline Casts 0-2 (0-2) /LPF Radiology Impression Discussion of test interpretation with radiology: I have reviewed the radiologist's reading. Radiologist Impression: [address] [address] [address] Scan Report Signed Patient: Radha Nguyen MR#: [id number] : 1970 Acct:[id number] Age/Sex: 54 / F ADM Date: 11/08/24 Loc: .ED Attending Dr: Ordering Physician: Harry Wu MD Date of Service: 11/09/24 Procedure(s): CT abdomen pelvis wo IV con Accession Number(s): [id number] cc: Mary Ellen Ortega MD; Harry Wu MD~ Report Number: [id number]: Total DLP = 620.00 mGy-cm CLINICAL HISTORY: Right flank pain CT abdomen and pelvis without contrast Comparison: CT of the abdomen and pelvis from 12/30/2023. Findings: No obstructing stone of either kidney or either ureter. Mild bilateral nephrolithiasis measure up to 0.3 cm. No change in exophytic cystic lesion of the left kidney or additional cystic lesions in the kidneys not further characterize without contrast. Mild volume loss of the pancreas is noted. Spleen approaches the upper limits of normal. The gallbladder is surgically absent. Redemonstration of the steatotic change of the liver. Adrenal glands are unchanged. Small mesenteric lymph nodes are nonspecific. No small bowel obstruction. Severe stool burden is present, including the cecum. The appendix is not definitively seen and likely surgically absent given postprocedural changes in the right lower quadrant. Uterus is enlarged and deviates to the left with likely multiple fibroids. One measures proximally 5 cm superiorly by noncontrast CT. Phleboliths are noted in the pelvis. No definite adnexal soft tissue mass by noncontrast CT. Urinary bladder is unremarkable. Degenerative changes include the hips, SI joints, and spine. No definite hardware loosening of lumbosacral hardware and/or instrumentation. Dorsal device with superior directed leads. Leads are likely epidural as imaged in the [id number] imaged spine. Coccyx fracture and angulation appears old. Dorsal fluid is likely postprocedural including filling laminectomy defects. IMPRESSION: 1. Bilateral nephrolithiasis measure up to 0.3 cm. No obstructing stone in either kidney or either ureter at this time. 2. Fibroids of the uterus. 3. Severe stool burden. No small bowel obstruction. This document has been electronically signed by: Ty Parra MD on 11/09/2024 03:02:04 Discharge Plan Discharge Clinical Impression: UTI (urinary tract infection) Patient Disposition: Home, Self-Care Instructions: Urinary Tract Infection in Women (ED) Additional Instructions: Drink plenty of fluids Antibiotic as prescribed You have bilateral kidney stone which not blocking or causing the pain Prescriptions: New cefuroxime axetil 250 mg tablet 250 mg PO BID 7 Days Qty: 14 0RF No Action pantoprazole 40 mg tablet,delayed release (DR/EC) 40 mg PO QAM Qty: 30 6RF potassium chloride 10 mEq tablet extended release 1 tab PO DAILY montelukast 10 mg tablet 1 tab PO QPM insulin lispro 100 unit/mL insulin pen 20 unit subcut TID valsartan-hydrochlorothiazide 320-25 mg tablet 1 tab PO DAILY gabapentin 100 mg capsule 200 mg PO TID insulin detemir U-100 100 unit/mL (3 mL) Insulin Pen 30 unit SUBCUT BEDTIME diclofenac sodium 1 % gel 2 g topical QID multivitamin Tablet 1 tab PO DAILY Trulicity 0.75 mg/0.5 mL pen injector 0.75 mg subcut FR melatonin 5 mg tablet 5 mg PO BEDTIME dextroamphetamine-amphetamine [Adderall XR] 20 mg capsule,extended release 24hr 1 cap PO QAM bisacodyl [Dulcolax (bisacodyl)] 5 mg tablet,delayed release (DR/EC) 20 mg PO ONCE PRN (Reason: colonoscopy prep) 1 Days Qty: 4 0RF Rx Instructions: Day before procedure @ 12 noon Take 4 tablets by mouth followed by large glass of water polyethylene glycol 3350 [Miralax] 17 gram/dose powder 238 g PO ONCE PRN (Reason: laxative effect) 1 Days Qty: 238 0RF Rx Instructions: Take as directed by mouth the day before your procedure. cetirizine 10 mg tablet 10 mg PO QAM clopidogrel 75 mg tablet 75 mg PO QAM albuterol sulfate [Ventolin HFA] 90 mcg/actuation HFA aerosol inhaler 2 puff inhalation Q4H PRN (Reason: wheezing) metformin 500 mg tablet 500 mg PO QAM clonidine HCl 0.1 mg tablet 0.1 mg PO BEDTIME PRN (Reason: Anxiety) fluticasone propion-salmeterol [Advair Diskus] 250-50 mcg/dose blister with device 1 ea inhalation BID albuterol sulfate 2.5 mg /3 mL (0.083 %) solution for nebulization 2.5 mg inhalation DAILY PRN (Reason: wheezing) Farxiga 10 mg tablet 10 mg PO QAM atorvastatin 20 mg tablet 20 mg PO QAM amlodipine 10 mg tablet 10 mg PO BEDTIME aspirin 81 mg tablet,chewable 1 tab PO QAM Incruse Ellipta 62.5 mcg/actuation blister with device 1 inh inhalation DAILY Print Language: Swiss
[2024-11-08 18:46] LABS: MANUAL DIFF FLAG NO
[2024-11-08 18:48] LABS: Basophils Absolute Auto 0.1 X10*3/uL (0.0-0.2); Basophils Percent Auto 0.5 % (0-2); Eosinophils Absolute Auto 0.3 X10*3/uL (0.0-0.4); Eosinophils Percent Auto 2.8 % (0-4); Hematocrit 43.7 % (37.0-47.0); Hemoglobin 14.4 g/dl (12.0-16.0); Imm Gran Abs Auto 0.04 X10*3/uL (0.00-0.03); Imm Gran Pct Auto 0.4 % (0.0-0.4); Lymphocytes Percent Auto 35.8 % (20-40); Mean Corpuscular Hemoglobin 27.7 pg (27.0-33.0); Mean Platelet Volume 9.6 fL (9.4-12.3); Monocytes Absolute Auto 0.9 X10*3/uL (0.1-1.2); Monocytes Percent Auto 8.1 % (2-11); Neutrophils Absolute Auto 5.8 x10*3/uL (2.0-8.3); Neutrophils Percent Auto 52.4 % (45-73); Platelet Count 329 X10*3/uL (160-400); Red Cell Distribution Width 12.4 % (11.0-16.0)
[2024-11-08 18:49] LABS: Appearance Urine Clear; Color Urine Dark Yellow; Glucose Urine UA 500 mg/dL (Negative); Leukocyte Esterase Urine Small (1+) (Negative); Nitrite Urine Negative (Negative); PH 5.5 (5.0-9.0); Specific Gravity - Urine 1.025 (1.005-1.025); UMIC TRIGGER UACC YES; Urine Blood Negative (Negative); Urine Ketones Trace mg/dL (Negative); Urine Protein Trace mg/dL (Neg-Trace)
[2024-11-08 18:59] LABS: Bacteria Urine None Seen (None Seen); Calcium Oxalate Crystals Urine Present; Hyaline Casts Urine 0-2 /LPF (0-2); UACC Culture Trigger YES
[2024-11-08 19:02] LABS: Alanine Aminotransferase 26 U/L (0-31); Albumin Level 4.4 g/dL (3.5-5.0); Alkaline Phosphatase 164 U/L (39-117); Anion Gap 12 (12-20); Aspartate Amino Transferase 21 U/L (5-31); Bilirubin Total 0.5 mg/dL (0.0-1.0); Blood Urea Nitrogen 6 mg/dL (9-16); Calcium 9.4 mg/dL (8.4-10.2); Carbon Dioxide 27 mmol/L (22-29); Chloride 105 mmol/L (96-108); Creatinine Clr Calc Pharmacy 90.5; Estimated Glomerular Filt Rate > 60; Glucose Random 131 mg/dL (60-115); Lipase 23 U/L (8-78); Magnesium 1.6 mg/dL (1.6-2.6); Potassium 3.5 mmol/L (3.3-5.1); Sodium 140 mmol/L (135-145); Total Protein 7.3 g/dL (6.5-8.0)
--- NOTE | 2024-11-08 21:42 | PC.NURSE ---
Pt is a&ox4, no signs of distress. Pt reports 9/10 RLQ, suprapubic, and right flank pain, burning w/ urination onset x2 days. Plan of care ongoing.
[2024-11-08 22:00] VITALS: BP 120/62; PULSE 69; RESP 16; TEMP 36.5; O2SAT 93
[2024-11-08] MEDS: ondansetron HCL 4 MG/2 ML VIAL IVPUSH (23:55)
[2024-11-08] MEDS: 0.9 % Sodium Chloride 1,000 ML 999 ML IV (23:57)
[2024-11-08] MEDS: cefTRIAXone sodium 1 GM VIAL IVPUSH (23:57)
[2024-11-08] MEDS: Ketorolac Tromethamine 30 MG/ML VIAL IVPUSH (23:57)
--- NOTE | 2024-11-09 00:05 | PC.NURSE ---
Pt medicated per [facility] Plan of care ongoing.
[2024-11-09 00:18] LABS: Glucose, Whole Blood 134 mg/dL (60-115)
--- NOTE | 2024-11-09 00:18 | PC.NURSE ---
Pt reporting she is a diabetic and would like to have a poc done. Plan of care ongoing.
[2024-11-09 01:07] VITALS: RESP 18
--- NOTE | 2024-11-09 02:20 | PC.NURSE ---
Pt with CT Plan of care ongoing.
[2024-11-09] MEDS: Morphine Sulfate 4 MG/ML CARTRIDGE IVPUSH (02:43)
--- NOTE | 2024-11-09 02:46 | PC.NURSE ---
Pt medicated per jan Provider Jazmni maldonado. Plan of care ongoing.
[2024-11-09 03:20] VITALS: RESP 12
[2024-11-09 03:32] VITALS: BP 128/62; PULSE 72; RESP 14; TEMP 36.4; O2SAT 96
[2024-11-09 05:19] VITALS: BP 114/56; PULSE 68; RESP 14; TEMP 37.1; O2SAT 92
== END 2024-11-09 05:21 | disposition home or self-care (01) ==
PROVIDERS: Physician Assistant Medical; Emergency Provider Internal Medicine; PCP Student in an Organized Health Care Education/Training Program
DX: N39.0 Urinary tract infection, site not specified (principal); R51.9 Headache, unspecified; R30.0 Dysuria; R10.9 Unspecified abdominal pain; R11.2 Nausea with vomiting, unspecified; Z79.899 Other long term (current) drug therapy
CPT/HCPCS: 36415; 74176; 80053; 81001; 82947; 83690; 83735; 85025; 87086; 96361; 96374; 96375; 99284; J0696; J1885; J2270; J2405

== ENCOUNTER → 2024-11-09 00:06 | Outpatient (BNV) | payer MEDICAID, SELFPAY | PROVIDERS: Emergency Provider Internal Medicine; PCP Student in an Organized Health Care Education/Training Program; Visit Provider Radiology Neuroradiology | DX: N20.0 Calculus of kidney (principal); D25.9 Leiomyoma of uterus, unspecified | CPT/HCPCS: 74176 ==

== ENCOUNTER 2025-01-18 10:10 | Emergency (ER) | payer MEDICAID, SELFPAY ==
--- NOTE | ~2025-01-18 | CT_ITS ---
CLINICAL HISTORY: LLQ pain, divertic? CT abdomen and pelvis without contrast Comparison: CT/SR - CT ABDOMEN PELVIS WO IV CON - 11/09/24 02:20 EST Findings: No acute finding in the partially imaged lung bases. No significant abnormality of the liver, pancreas, spleen, or adrenal glands. Cholecystectomy. Bilateral renal cysts again noted. Nonobstructing tiny bilateral renal calculi again noted. No hydronephrosis or hydroureter. Multi fibroid uterus. Ovaries normal. Urinary bladder within normal limits. Appendectomy changes. Normal stomach, small bowel, and colon otherwise. No findings of diverticulitis. No acute or suspicious bone lesion. IMPRESSION: No acute findings. This document has been electronically signed by: Drew Bee MD on 01/18/2025 19:27:23
[2025-01-18 10:23] VITALS: BP 125/59; PULSE 83; RESP 18; TEMP 36.6; O2SAT 98; BMI 26.8
[2025-01-18 11:07] LABS: MANUAL DIFF FLAG NO
[2025-01-18 11:10] LABS: Basophils Percent Auto 0.4 % (0-2); Eosinophils Absolute Auto 0.2 X10*3/uL (0.0-0.4); Eosinophils Percent Auto 1.4 % (0-4); Hematocrit 46.8 % (37.0-47.0); Hemoglobin 15.1 g/dl (12.0-16.0); Imm Gran Abs Auto 0.03 X10*3/uL (0.00-0.03); Imm Gran Pct Auto 0.3 % (0.0-0.4); Lymphocytes Absolute Auto 3.6 X10*3/uL (1.2-4.9); Lymphocytes Percent Auto 32.3 % (20-40); Mean Corpuscular HGB Conc 32.3 g/dl (31.0-35.0); Mean Corpuscular Hemoglobin 27.4 pg (27.0-33.0); Mean Corpuscular Volume 84.9 fL (80.0-98.0); Mean Platelet Volume 9.4 fL (9.4-12.3); Monocytes Absolute Auto 0.7 X10*3/uL (0.1-1.2); Monocytes Percent Auto 6.5 % (2-11); Neutrophils Absolute Auto 6.6 x10*3/uL (2.0-8.3); Neutrophils Percent Auto 59.1 % (45-73); Platelet Count 354 X10*3/uL (160-400); Red Blood Count 5.51 X10*6/uL (4.20-5.50); White Blood Count 11.2 X10*3/uL (4.8-10.8)
[2025-01-18 11:22] LABS: Prothrombin Time 11.7 SEC (10.9-12.4)
[2025-01-18 11:34] LABS: Alanine Aminotransferase 27 U/L (0-31); Albumin Level 4.4 g/dL (3.5-5.0); Anion Gap 13 (12-20); Aspartate Amino Transferase 25 U/L (5-31); Bilirubin Direct 0.4 mg/dL (0.0-0.5); Blood Urea Nitrogen 11 mg/dL (9-16); Carbon Dioxide 28 mmol/L (22-29); Chloride 104 mmol/L (96-108); Creatinine Clr Calc Pharmacy 88.1; Estimated Glomerular Filt Rate > 60; Glucose Random 139 mg/dL (60-115); Lipase 14 U/L (8-78); Potassium 3.6 mmol/L (3.3-5.1); Sodium 141 mmol/L (135-145); Total Protein 7.8 g/dL (6.5-8.0)
[2025-01-18 12:27] LABS: Influenza A PCR NEGATIVE (Negative); Influenza B PCR NEGATIVE (Negative); Resp Syncy Virus RNA Qual PCR NEGATIVE (Negative); SARS COV2 PCR INHOUSE NEGATIVE (Negative)
[2025-01-18 13:24] LABS: Alkaline Phosphatase 143 U/L (39-117)
--- NOTE | 2025-01-18 18:50 | ED.ABDPAIN ---
HPI - Abdominal Pain General Chief Complaint: Abdominal Pain Stated Complaint: vomiting diarrhea Time Seen by Provider: 01/18/25 18:19 Source: patient Limitations: no limitations History of Present Illness ED Provider: Radha Alamo PA-C HPI narrative: 54-year-old female with a history of diabetes, hypertension, hyperlipidemia, peripheral arterial disease status post left [id number] amputation who is anticoagulated, chronic back pain, sleep apnea, GERD, kidney stones, who presents with the abdominal pain x2 days. Pain described as cramping sensation over left mid to lower abdomen that is nonradiating and constant. Associated bloody diarrhea, having had multiple episodes yesterday, with the onset of bright red blood per rectum today. Patient states she had 3 large volume bloody bowel movements today. Associated nausea vomiting, unable to tolerate oral intake. Patient states she had a fever of 104 at home. No sick contacts with similar symptoms. Denies recent travel, hospitalization or use of antibiotics. Related Data Home Medications ?Medication ?Instructions ?Recorded ?Confirmed insulin lispro 100 unit/mL 20 unit subcut TID 10/20/22 12/26/23 subcutaneous pen montelukast 10 mg tablet 1 tab PO QPM 10/20/22 12/26/23 potassium chloride 10 mEq 1 tab PO DAILY 10/20/22 12/26/23 tablet,extended release valsartan 320 1 tab PO DAILY 10/20/22 12/26/23 mg-hydrochlorothiazide 25 mg tablet albuterol sulfate 90 mcg/actuation 2 puff inhalation Q4H PRN wheezing 05/06/23 12/26/23 aerosol inhaler (Ventolin HFA) cetirizine 10 mg tablet 10 mg PO QAM 05/06/23 12/26/23 clonidine HCl 0.1 mg tablet 0.1 mg PO BEDTIME PRN Anxiety 05/06/23 12/26/23 clopidogrel 75 mg tablet 75 mg PO QAM 05/06/23 12/26/23 fluticasone 250 mcg-salmeterol 50 1 ea inhalation BID 05/06/23 12/26/23 mcg/dose blistr powdr for inhalation (Advair Diskus) metformin 500 mg tablet 500 mg PO QAM 05/06/23 12/26/23 albuterol sulfate 2.5 mg/3 mL 2.5 mg inhalation DAILY PRN 08/08/23 12/26/23 (0.083 %) solution for nebulization wheezing atorvastatin 20 mg tablet 20 mg PO QAM 08/08/23 12/26/23 dapagliflozin propanediol 10 mg 10 mg PO QAM 08/08/23 12/26/23 tablet (Farxiga) amlodipine 10 mg tablet 10 mg PO BEDTIME 09/05/23 12/26/23 aspirin 81 mg chewable tablet 1 tab PO QAM 09/05/23 12/26/23 umeclidinium 62.5 mcg/actuation 1 inh inhalation DAILY 09/05/23 12/26/23 blister powder for inhalation (Incruse Ellipta) dextroamphetamine-amphetamine ER 1 cap PO QAM 11/25/23 12/26/23 20 mg 24hr capsule,extend release (Adderall XR) dulaglutide 0.75 mg/0.5 mL 0.75 mg subcut FR 11/25/23 12/26/23 subcutaneous pen injector (Trulicity) melatonin 5 mg tablet 5 mg PO BEDTIME 11/25/23 12/26/23 diclofenac sodium 1 % topical gel 2 g topical QID pain 12/26/23 12/26/23 gabapentin 100 mg capsule 200 mg PO TID 12/26/23 12/26/23 insulin detemir U-100 100 unit/mL 30 unit subcut BEDTIME 12/26/23 12/26/23 (3 mL) subcutaneous pen multivitamin 1 tab PO DAILY 12/26/23 12/26/23 Previous Rx's ?Medication ?Instructions ?Recorded bisacodyl 5 mg tablet,delayed 20 mg (4 x 5 mg) PO ONCE PRN 02/17/24 release (Dulcolax (bisacodyl)) colonoscopy prep 1 day #4 tabs polyethylene glycol 3350 17 238 g PO ONCE PRN laxative effect 02/17/24 gram/dose oral powder (Miralax) 1 day #238 grams pantoprazole 40 mg tablet,delayed 40 mg PO QAM #30 tabs 08/28/24 release cefuroxime axetil 250 mg tablet 250 mg PO BID 7 days #14 tabs 11/09/24 dicyclomine 20 mg tablet 20 mg PO BID #6 tabs 01/18/25 ondansetron HCl 4 mg tablet 4 mg PO Q8H PRN nausea and 01/18/25 vomiting #10 tabs Allergies Allergy/AdvReac Type Severity Reaction Status Date / Time Iodinated Contrast Media Allergy Unknown HIVES Verified 01/18/25 10:25 [IV DYE, IODINE CONTAINING] Review of Systems Review of Systems Yes all other systems are reviewed and are negative Constitutional: Reports chills, Denies fatigue, Reports fever(s) and Reports poor appetite Cardiovascular: Denies chest pain and Denies dyspnea Respiratory: Denies cough and Denies dyspnea Gastrointestinal: Reports abdominal pain, Reports hematochezia, Reports diarrhea, Reports nausea and Reports vomiting Endocrine: Denies fatigue [facility] Past Medical History Attestation statement: The following information was validated with the patient. 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 PAD (peripheral artery disease) Mild acid reflux Raynauds disease Insulin dependent type 2 diabetes mellitus Peripheral neuropathy Non-insulin dependent type 2 diabetes mellitus Hypertension Sepsis Surgical History (Updated 06/25/24 @ 15:47 by Radha Meyers RN) S/P placement of nerve stimulator S/P cholecystectomy S/P appendectomy History of esophagogastroduodenoscopy (EGD) Hx of colonoscopy Amputated left leg Family History Family History Mother Acute eczema HTN (hypertension) Diabetes Family/Other Cancer Social History Social History Household Members: Family Housing: Apartment Do you presently have visiting nurse or other home services: No Alcohol intake: never Patient Tobacco Use Status: Former Tobacco user Tobacco use type: Cigarette Second Hand Smoke Exposure: No Advance Directives: Yes Advance Directives on File: Yes Advance Directives Date on File: 12/31/23 Do you have a plan to hurt others: No Plan service: No Current occupational status: disabled Physical Exam ED Vital Signs: Vital Signs - 24 hr 01/18/25 10:23 Temperature 98 F Pulse Rate 83 Respiratory Rate 18 Blood Pressure 125/59 L Pulse Oximetry 98 BMI result Body Mass Index 26.8 Const Other: Alert well-appearing Orientation/consciousness: patient oriented x3 Resp Effort & Inspection: normal respiratory effort Cardio Other: Normal peripheral perfusion GI Other: Abdomen is soft, nondistended, moderate tenderness across the entire lower abdomen, left greater than right no guarding Skin Other: Warm dry no rash Neuro General: patient oriented x3, no focal motor deficits and CN's II-XI intact bilaterally Psych Other: Cooperative Medical Decision Making Medical Decision Making MDM Narrative: 54-year-old female with a history of diabetes, hypertension, hyperlipidemia, peripheral arterial disease status post left [id number] amputation who is anticoagulated, chronic back pain, sleep apnea, GERD, kidney stones, who presents with the abdominal pain x2 days. Pain described as cramping sensation over left mid to lower abdomen that is nonradiating and constant. Associated bloody diarrhea, having had multiple episodes yesterday, with the onset of bright red blood per rectum today. Patient states she had 3 large volume bloody bowel movements today. Associated nausea vomiting, unable to tolerate oral intake. Patient states she had a fever of 104 at home. No sick contacts with similar symptoms. Denies recent travel, hospitalization or use of antibiotics. Problem: Diabetes, peripheral arterial disease on anticoagulation History: Per patient I have considered the following differential diagnoses: Upper GI bleed lower GI bleed, diverticulitis, diverticulosis, internal hemorrhoids, C diff, traveler's diarrhea, viral gastroenteritis Plan: Concern for diverticulitis given left lower quadrant discomfort. We will be obtaining a CT scan. We will be giving morphine Zofran and fluid. The patient has no risk factors for C diff or traveler's diarrhea, she has no sick contacts to suggest a viral gastroenteritis, this would be less likely with the associated bright red blood per rectum that she is having. I have independently reviewed the following tests: Labs: Slight leukocytosis, no left shift, not anemic, no electrolyte abnormality noted, viral panel negative CT abdomen and pelvis:Findings: No acute finding in the partially imaged lung bases. No significant abnormality of the liver, pancreas, spleen, or adrenal glands. Cholecystectomy. Bilateral renal cysts again noted. Nonobstructing tiny bilateral renal calculi again noted. No hydronephrosis or hydroureter. Multi fibroid uterus. Ovaries normal. Urinary bladder within normal limits. Appendectomy changes. Normal stomach, small bowel, and colon otherwise. No findings of diverticulitis. No acute or suspicious bone lesion. IMPRESSION: No acute findings. Lab Data 01/18/25 11:00 01/18/25 11:00 Labs: Lab Results 01/18/25 01/18/25 Range/Units 11:00 11:35 WBC 11.2 H (4.8-10.8) X10*3/uL RBC 5.51 H (4.20-5.50) X10*6/uL Hgb 15.1 (12.0-16.0) g/dl Hct 46.8 (37.0-47.0) % MCV 84.9 (80.0-98.0) fL MCH 27.4 (27.0-33.0) pg MCHC 32.3 (31.0-35.0) g/dl RDW 13.0 (11.0-16.0) % Plt Count 354 (160-400) X10*3/uL MPV 9.4 (9.4-12.3) fL Immature Gran % (Auto) 0.3 (0.0-0.4) % Neut % (Auto) 59.1 (45-73) % Lymph % (Auto) 32.3 (20-40) % [place] % (Auto) 6.5 (2-11) % Eos % (Auto) 1.4 (0-4) % Baso % (Auto) 0.4 (0-2) % Lymph # (Auto) 3.6 (1.2-4.9) X10*3/uL [place] # (Auto) 0.7 (0.1-1.2) X10*3/uL Eos # (Auto) 0.2 (0.0-0.4) X10*3/uL Baso # (Auto) 0.0 (0.0-0.2) X10*3/uL Abs Immat Gran (auto) 0.03 (0.00-0.03) X10*3/uL Absolute Neuts (auto) 6.6 (2.0-8.3) x10*3/uL Absolute Nucleated RBC 0.000 (0.0-0.012) X10*3/uL Nucleated RBC % (auto) 0.0 (0.0-0.2) /100WBC PT 11.7 (10.9-12.4) SEC INR 1.0 (0.9-1.1) Sodium 141 (135-145) mmol/L Potassium 3.6 (3.3-5.1) mmol/L Chloride 104 (96-108) mmol/L Carbon Dioxide 28 (22-29) mmol/L Anion Gap 13 (12-20) BUN 11 (9-16) mg/dL Creatinine 0.79 (0.5-1.4) mg/dL Estim Creat Clear Calc 88.1 Estimated GFR > 60 Random Glucose 139 H (60-115) mg/dL Calcium 10.0 D (8.4-10.2) mg/dL Total Bilirubin 1.0 (0.0-1.0) mg/dL Direct Bilirubin 0.4 (0.0-0.5) mg/dL AST 25 (5-31) U/L ALT 27 (0-31) U/L Alkaline Phosphatase 143 H (39-117) U/L Total Protein 7.8 (6.5-8.0) g/dL Albumin 4.4 (3.5-5.0) g/dL Lipase 14 (8-78) U/L Influenza Type A (PCR) NEGATIVE (Negative) Influenza Type B (PCR) NEGATIVE (Negative) RSV RNA Qual (PCR) NEGATIVE (Negative) SARS-CoV-2 RNA (RT-PCR) NEGATIVE (Negative) Discharge Plan Discharge Clinical Impression: Viral gastroenteritis, Bright red rectal bleeding Patient Disposition: Home, Self-Care Instructions: Rectal Bleeding (ED), Gastroenteritis (ED) Additional Instructions: All of your screening labs were normal. There were no acute findings on the CT scan. You likely have viral gastroenteritis as cause for your nausea vomiting diarrhea. See home care instructions. Uses Zofran as needed for nausea, use the dicyclomine as needed for abdominal cramping and diarrhea. In regard to the bleeding, you need to follow up with your primary care provider, you require a colonoscopy to determine where the bleeding is coming from. Call to make an appointment. Prescriptions: New dicyclomine 20 mg tablet 20 mg PO BID Qty: 6 0RF ondansetron HCl 4 mg tablet 4 mg PO Q8H PRN (Reason: nausea and vomiting) Qty: 10 0RF No Action pantoprazole 40 mg tablet,delayed release (DR/EC) 40 mg PO QAM Qty: 30 6RF potassium chloride 10 mEq tablet extended release 1 tab PO DAILY montelukast 10 mg tablet 1 tab PO QPM insulin lispro 100 unit/mL insulin pen 20 unit subcut TID valsartan-hydrochlorothiazide 320-25 mg tablet 1 tab PO DAILY gabapentin 100 mg capsule 200 mg PO TID insulin detemir U-100 100 unit/mL (3 mL) Insulin Pen 30 unit SUBCUT BEDTIME diclofenac sodium 1 % gel 2 g topical QID multivitamin Tablet 1 tab PO DAILY cefuroxime axetil 250 mg tablet 250 mg PO BID 7 Days Qty: 14 0RF Trulicity 0.75 mg/0.5 mL pen injector 0.75 mg subcut FR melatonin 5 mg tablet 5 mg PO BEDTIME dextroamphetamine-amphetamine [Adderall XR] 20 mg capsule,extended release 24hr 1 cap PO QAM bisacodyl [Dulcolax (bisacodyl)] 5 mg tablet,delayed release (DR/EC) 20 mg PO ONCE PRN (Reason: colonoscopy prep) 1 Days Qty: 4 0RF Rx Instructions: Day before procedure @ 12 noon Take 4 tablets by mouth followed by large glass of water polyethylene glycol 3350 [Miralax] 17 gram/dose powder 238 g PO ONCE PRN (Reason: laxative effect) 1 Days Qty: 238 0RF Rx Instructions: Take as directed by mouth the day before your procedure. cetirizine 10 mg tablet 10 mg PO QAM clopidogrel 75 mg tablet 75 mg PO QAM albuterol sulfate [Ventolin HFA] 90 mcg/actuation HFA aerosol inhaler 2 puff inhalation Q4H PRN (Reason: wheezing) metformin 500 mg tablet 500 mg PO QAM clonidine HCl 0.1 mg tablet 0.1 mg PO BEDTIME PRN (Reason: Anxiety) fluticasone propion-salmeterol [Advair Diskus] 250-50 mcg/dose blister with device 1 ea inhalation BID albuterol sulfate 2.5 mg /3 mL (0.083 %) solution for nebulization 2.5 mg inhalation DAILY PRN (Reason: wheezing) Farxiga 10 mg tablet 10 mg PO QAM atorvastatin 20 mg tablet 20 mg PO QAM amlodipine 10 mg tablet 10 mg PO BEDTIME aspirin 81 mg tablet,chewable 1 tab PO QAM Incruse Ellipta 62.5 mcg/actuation blister with device 1 inh inhalation DAILY Print Language: [place]
[2025-01-18 20:00] VITALS: BP 131/73; PULSE 83; RESP 16; TEMP 36.8; O2SAT 95
[2025-01-18] MEDS: Ondansetron ODT 8 MG TAB.RAPDIS TRANSLINGU (20:16)
[2025-01-18] MEDS: Dicyclomine HCl 10 MG CAPSULE 20 MG PO (20:16)
[2025-01-18 20:20] VITALS: BP 131/73; PULSE 83; RESP 16; TEMP 36.8; O2SAT 95
== END 2025-01-18 20:23 | disposition home or self-care (01) ==
PROVIDERS: Physician Assistant Medical; Emergency Provider Emergency Medicine; PCP Student in an Organized Health Care Education/Training Program
DX: A08.4 Viral intestinal infection, unspecified (principal); K62.5 Hemorrhage of anus and rectum; R10.30 Lower abdominal pain, unspecified; E11.9 Type 2 diabetes mellitus without complications; I10 Essential (primary) hypertension; E78.5 Hyperlipidemia, unspecified; Z03.818 Encounter for observation for suspected exposure to other biological agents ruled out; Z79.4 Long term (current) use of insulin; Z79.84 Long term (current) use of oral hypoglycemic drugs; Z79.899 Other long term (current) drug therapy; Z79.02 Long term (current) use of antithrombotics/antiplatelets; Z79.01 Long term (current) use of anticoagulants
CPT/HCPCS: 0241U; 36415; 74176; 80048; 80076; 83690; 85025; 85610; 99283; 99284

== ENCOUNTER → 2025-01-18 18:32 | Outpatient (BNV) | payer MEDICAID, SELFPAY | PROVIDERS: Emergency Provider Emergency Medicine; PCP Student in an Organized Health Care Education/Training Program; Visit Provider Radiology Diagnostic Radiology | DX: R10.32 Left lower quadrant pain (principal) | CPT/HCPCS: 74176 ==

== ENCOUNTER 2025-05-07 16:51 | Outpatient (REF) | payer MEDICAID, SELFPAY | END 2025-05-07 16:52 | disposition home or self-care (01) | LOC: HO.HHCLNP 16:51 | PROVIDERS: Visit Provider Nurse Practitioner Family | DX: N94.9 Unspecified condition associated with female genital organs and menstrual cycle (principal) | CPT/HCPCS: 87086; 87088; 87186 ==

== ENCOUNTER 2025-05-27 08:50 | Outpatient (AMB) | payer MEDICAID, SELFPAY ==
--- OUTSIDE RECORDS SUMMARY | 2025-05-27 09:05 | XMS_ITS | Encounter Summary ---
Author Organization [employer] Address [address] [place] [address] [address] [place] [address] Care Team Providers Care Waiter/Waitress Name Role Phone Mary Ellen Ortega MD Primary Care Pro vider Sommer Martinez PharmD Unavailable [phone] Reason for Visit * Reason Comments Med Refill Encounter Details Date Type Department Care Team ([facility] st Contact Info) Description 02/26/[address] [facility] [address] [place] [id number] Mary Ellen Ortega MD [address] [place], [place] [id number] Social History Tobacco Use Types Packs/Day Years Used Date Smoking Tobacco: Former Passive Smoke Exposure: Past Smokeless Tobacco: Former Comments:Quit 17 years ago,s tarted at 10 y until 31 y of age ,2 PQT a day ---PQT a year calc 40 Does not qualify for lung cancer screening at this time due to quitting >15 years ago (AD ) Alcohol Use Standard Drinks/Week Comments Never 0 (1 standard drink = 0.6 oz pur e alcohol) Depression Answer Date Recorded Patient Health Questionnaire-9 Score 07/24/2024 Patient Health Questionnaire-9 Score 07/24/2024 Last PHQ-9: Questionnaire Data Not on file 0 07/24/2024 Housing Stability Answer Date Recorded What is your housing situation today? I have reid omalley 02/22/[address] you li ve. Do you have problems with any of the following? None of the above 02/22/2025 Food Insecurity Answer Date Recorded Within the past 12 months, y ou worried that your food would run out before you got money to buy more: Sometimes True 2024 Within the past 12 months,th e food you bought just didn't last and you didn't have enough money to get more: Sometimes True 02/22/2025 Transportation Answer Date Recorded In the past 12 months, has l ack of transportation kept you from medical appts, meetings, work or from getting things needed for daily living? No 02/22/2025 Utilities Answer Date Recorded In the past 12 months, has t he electric, gas, oil or water company threatened to shut off services in your home? No 02/22/2025 Depression Answer Date Recorded Patient Health Questionnaire-2 Score 4 07/24/2024 Internet Access Answer Date Recorded Internet Access Q1 No 02/22/2025 Internet Access Q2 Not on file 02/22/2025 Comments No Sex and Gender Information Value Date Recorded Sex Assigned at Female 03/05/2023 2:56 PM EDT Legal Sex Female 2:39 PM EDT Gender Identity Female 03/05/2023 2:56 PM EDT Sexual Orientation Straight 03/05/2023 2: 56 PM EDT documented as of this encounter Plan of Treatment Upcoming Encounters Date Type Department Care Team (Late st Contact Info) Description 07/06/2025 1:45 PM EDT Office Visit [facility] [address] [place] [phone] Mary Ellen Ortega MD [address] [place] [phone] 08/13/2025 10:00 AM EDT Medication Management [facility] [address] [place] [phone] Sommer Martinez, ElizabethD [address] [place] [phone] documented as of this encounter Visit Diagnoses Not on filedocumented in this encounter Additional Health Concerns Assessment Noted Time PHQ-9 Depression Total Score: 12 024 2:32 PM EDT documented as of this encounter Care Teams Waiter/Waitress Relationship Specialty Start Date End Date Mary Ellen Ortega MD [address] [place] [phone] PCP - General Internal Medicine 03/15/23 Sommer Martinez PharmD [address] [place] [phone] Pharmacist Internal Medicine 09/30/24 documented as of this encounter
--- OUTSIDE RECORDS SUMMARY | 2025-05-27 09:05 | XMS_ITS | Patient Health Record ---
Author Organization [facility] [address] [facility] [address] Care Team Providers Care Multi Slide Machine Tender Name Role Phone Larry Carranza Unavailable Unavailable CelCastillo blakeanda Unavailable Unavailable Reason For Referral No Information Plan Of Treatment No Information Insurance Providers Payer Name Payer Address Payer Phone Subscriber Number Group Number Insured Name Patient Relationship to Insured Coverage Start Date Coverage End Date [employer] Medicaid [address] [place] [address] [id number] Radha Lux Self - patient is the insured
[2025-05-27 09:25] VITALS: BP 134/67; PULSE 77; O2SAT 98; BMI 24.3
--- NOTE | 2025-05-27 09:25 | MHC.OFFVIS ---
Vital Signs 05/27/25 09:25 Height 5 ft 8 in Weight 160 lb BMI 24.3 BP 134/67 Blood Pressure Location Rt brachial Position Sitting Pulse 77 Pulse Source Pulse Oximeter Pulse Oximetry (%) 98 Oxygen Delivery Method Room Air Intake Visit Reasons: FU back pain/RAKESH 09/12/23 Intake Note: Pain today 07/21 Engineered Wood Designer Required: No Accompanied by: Self / Same As Patient Allergies Iodinated Contrast Media (IV DYE, IODINE CONTAINING) Allergy (Unknown, Verified 05/27/25 09:25) HIVES HPI Comments Details: The patient is a 54-year-old female presenting with chronic back pain and neck pain. She was last seen in September 2023 following the removal and replacement of an [employer] system spinal cord stimulator battery. The patient reports persistent back pain for the past three weeks, which radiates to her legs, particularly in the L5-S1 distribution on the left side. She denies any recent trauma, injury or falls. 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 She denies reaching out to [employer] SCS representatives for over a year. Neck pain has been present and is exacerbated with lateral and side movements, although there is no pain when looking up or down. The pain extends to both shoulders and is associated with tightness. She has been taking cyclobenzaprine and gabapentin with minimal relief. The patient experiences urinary incontinence, which is a new symptom over the past three weeks. She has not consulted her PCP or Urologist yet. Denies any recent cough, cold, infection, fever or any other significant changes in medical history since last office visit. PRIOR 09/12/23: Patient presents today 2 weeks status post Removal and replacement [employer] spinal cord stimulator battery on 08/29/[address] Stafford. The wound dressing was removed and the wound cleansed with ChloraPrep. The [employer] battery wound site is clean, no pathological discharge, no redness and no swelling. The gómez are intact. There is no erythema or local temperature. Four gómez were removed. Incisional site was cleansed with ChloraPrep again. Steri-strips applied. Bacitracin ointment was applied to the wound. Tegaderm dressing was applied. Patient is wearing an abdominal binder. Patient was scheduled to see [employer] [facility] today to assess SCS device and battery charging but was told this has been rescheduled. Patient reports denies incisional site pain and reports chronic right sided low back pain with radiation into her left leg and mildly into her right lateral hip. Denies any recent cough, cold, infection, fever or other significant changes in medical history since last office visit. PRIOR: Patient presents today for follow up for low back pain with radiation to right buttock and right lateral hip. She was previously seen in April and has pending lumbar spine MRI which has not completed yet. Per MRI department, they attempted several times to contact patient to schedule but were unable. We provided MRI contact information to patient today to schedule lumbar spine MRI. Patient was seen in [facility] 2 days ago for UTI and has started antibiotic yesterday. CT abd/pelvis was taken in ER and showed degenerative changes from L3 through S1. There is posterior fixation with pedicular screws at L4, L5 and S1. Sclerotic changes seen in the right iliac bone adjacent to the SI joint. Patient is interested to undergo diagnostic right SIJ injection as next steps to confirm her pain generator. Patient also continues to reports post laminectomy syndrome related pain with bilateral radicular leg pain with SCS device in place that has not been working since last July. Patient had SCS interrogation by Anthony from [employer] on 05/16/23,however report has not been submitted to us yet. PRIOR: Patient is a pleasant 52 years old female with prior history of lumbar fusion with hardware and prosthetic disc interspaces at L4-L5 and L5-S1 Dr. Matthias Townsend at [place], [place] (10/13/2003), [facility] [facility] SCS in place, left AKA (01/20/2007), right femoral to distal peroneal bypass (07/04/2007), debridement and skin grafting of RLE (08/22/07), chronic anticoagulation on Plavix and aspirin, COPD, HTN, GERD, depression (CHD, [place]), diabetes (A1C-7.6 on 02/2023), peripheral neuropathy and Raynaud's disease, presents today for initial low back, neck and bilateral radicular leg pain. She presents today with request to replace her [employer] SCS battery. Patient reports her battery was not charged since last July due to multiple deaths in her family, including her , brother and sister in [place]. Patient reports she received multiple invitations to change her battery in [place] but has moved in [place] in January and has no plans to return to her original state as she reports remaining of her family is here. She arrived by wheelchair due to left AKA and is accompanied by her sister. Patient reports she lost her left leg due to Raynaud's and smoking in 2006. Patient reports back pain with bilateral radiation of pain to both legs anteriorly. Reports constant aching, hurting, tingling and stinging. Gabapentin tolerates 100 mg TID due to drowsiness. Also takes Tylenol with continued pain symptoms. She reports good pain relief when SCS device was in use. She also reports left sided neck pain that has been more recently. Patient also reports concerns for bladder and bowel incontinence for 6 months and was going to have MRI and evaluation in [place] but has moved to [place]. Denies any fever, open wounds, rash, swelling, shortness of breaths, abdominal or groin pain, weakness, or saddle anesthesia. FOR[facility]LY [facility] Medical History (Updated 05/27/25 @ 09:49 by BEAU Singh) Hematuria Abdominal pain, right lower quadrant Flank pain Elevated WBC count Acidosis, lactic 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 PAD (peripheral artery disease) Mild acid reflux Raynauds disease Insulin dependent type 2 diabetes mellitus Peripheral neuropathy Non-insulin dependent type 2 diabetes mellitus Hypertension Sepsis Surgical History (Updated 06/25/24 @ 15:47 by Radha Meyers RN) S/P placement of nerve stimulator S/P cholecystectomy S/P appendectomy History of esophagogastroduodenoscopy (EGD) Hx of colonoscopy Amputated left leg Family History Mother Acute eczema HTN (hypertension) Diabetes Family/Other Cancer Social History Household Members: Family Housing: Apartment Do you presently have visiting nurse or other home services: No Alcohol intake: never Patient Tobacco Use Status: Former Tobacco user Tobacco use type: Cigarette Second Hand Smoke Exposure: No Advance Directives Date on File: 12/31/23 service: No Current occupational status: disabled Review of Systems Const Details: - Musculoskeletal: Reports back and neck pain, denies significant spasms - Neurological: Reports radiculopathy, denies numbness in toes - Genitourinary: Reports urinary and bowel incontinence x 3 weeks All systems reviewed & are unremarkable except as noted in HPI and below Physical Exam Vital Signs: Last Vital Signs Pulse 77 05/27/25 09:25 BP 134/67 05/27/25 09:25 Pulse Ox 98 05/27/25 09:25 Oxygen Delivery Method Room Air 05/27/25 09:25 BMI result Body Mass Index 24.3 General: Appears afebrile. No acute distress. Alert and oriented. Fully engaged with exam. Mood and affect appropriate. Pleasant. Follows and participates in conversation appropriately. Respiratory effort is unlabored. No cough. Able to transition from sit to stand on right leg without assistance. Transfers via wheelchair. Left AKA. Good upper extremity and RLE strength. Increased right leg and back pain with SLR testing. General: Yes no CVA tenderness Back/Spine/Pelvis Back: no CVA tenderness Cervical Spine: cervical ROM normal, cervical muscular tenderness and No Cervical spine tenderness Thoracic/Lumbar Spine: thoracic and lumbar spine normal to inspection, Thoracic/lumbar spine scar(s), Lasegue's sign negative on the right and localized, pain with thoraco-lumbar ROM, paraspinal muscle tenderness, thoraco-lumbar ROM limited, No thoracic spinal tenderness and lumbar spinal tenderness (L4-S1) Pelvis: buttock tenderness on the right and sciatic notch tenderness on the right Sacroiliac joints: bilaterally (+Sincere's and Stinchfield reproduce LBP and lateral hip. ) tender to palpation Extrem Right lower extremity: full ROM, normal capillary refill and lower leg (multiple scars r/t peroneal bypass, debridement, skin grafting) Left lower extremity: knee (Left AKA) Results Reviewed Results Reviewed: CT ABDOMEN AND PELVIS WITHOUT CONTRAST 08/06/23 CLINICAL INFORMATION: Flank pain OSSEOUS STRUCTURES: There is degenerative changes from L3 through S1. There is posterior fixation with pedicular screws at L4, L5 and S1. Sclerotic changes seen in the right iliac bone adjacent to the SI joint. No interval change when compared to prior. IMPRESSION: 1. A cause for the patient's flank pain has not been found. 2. Enlarged fatty liver. 3. Cholecystectomy. 4. Bilateral punctate nonobstructing renal calculi. 5. Fibroid uterus. 6. Degenerative changes in the spine with posterior fixation L4-S1 and spinal stimulator. XR CERVICAL SPINE XR LUMBAR SPINE 07/17/25 LUMBAR SPINE FINDINGS: A generator projects over the left gluteal region. Wires extend above the field of view of the x-ray. Right upper quadrant clips are likely from prior cholecystectomy. There are surgical clips anterior to L5-L6. The right SI joint is sclerotic on both sides of the joint and slightly irregular. It appears stable. There are 6 lumbar segments. Vertebral body height and alignment is preserved. Posterior pedicle screws are present at L5, L6, and S1. There is nearby spacer at L5-L6. T12-L1: Unremarkable L1-L2: Unremarkable L2-L3: There is mild disc space narrowing, increased since the prior L3-L4: There is subtle retrolisthesis and mild disc space narrowing with small anterior osteophytes, slightly increased since prior. L4-L5: There is moderate disc space narrowing with anterior endplate sclerosis and osteophytes. There is facet sclerosis and osteophytes. L5-L6: Posterior fusion and interbody spacer. Spacer subsidence is stable. L6-S1: Level is fused posteriorly. There is bone graft bridging the facets and interbody space. Stable IMPRESSION: PLIF L5-L6-S1 with L5-L6 interbody spacer. Stable. CERVICAL SPINE FINDINGS: There is straightening of the cervical lordosis. There is no prevertebral soft tissue swelling. There is mild to moderate narrowing of the neural foramina at C3-4 by osteophytes, right greater than left. IMPRESSION: There is straightening of the expected cervical lordosis. This can be idiopathic, but can also be related to degenerative change, muscle spasm, or posterior soft tissue injury. Mild to moderate right greater than left neural foraminal narrowing at C3-4 by osteophytes. Assessment & Plan Assessment & Plan (1) Cervical spondylosis: Code(s): M47.812 - Spondylosis without myelopathy or radiculopathy, cervical region Category: Medical (2) Muscle spasms of neck: Code(s): M62.838 - Other muscle spasm Category: Medical (3) Lumbar spondylosis: Code(s): M47.816 - Spondylosis without myelopathy or radiculopathy, lumbar region Category: Medical (4) Failed back syndrome of lumbar spine: Code(s): M96.1 - Postlaminectomy syndrome, not elsewhere classified Category: Medical (5) Lumbar radiculopathy: Code(s): M54.16 - Radiculopathy, lumbar region Category: Medical (6) Lumbar spinal stenosis: Code(s): M48.061 - Spinal stenosis, lumbar region without neurogenic claudication Category: Medical (7) Cervical spondylosis: Code(s): M47.812 - Spondylosis without myelopathy or radiculopathy, cervical region Category: Medical (8) Muscle spasms of neck: Code(s): M62.838 - Other muscle spasm Category: Medical (9) Spinal cord stimulator status: Code(s): Z96.89 - Presence of other specified functional implants Category: Medical Plan Patient obtained x-rays of the back and neck as noted above. Pending thoracic spine xray. The [facility] team will be contacted to ensure the spinal cord stimulator leads have not moved, which could contribute to the patient's symptoms. An urgent MRI is ordered to evaluate for potential disc herniation or spinal stenosis, given the new onset of urinary and bowel incontinence with spinal stenosis related low back pain and right sided radiculopathy. The patient is advised to take a Medrol pack as a short-term intervention for radicular symptoms. Tizanidine is prescribed for muscle tightness, with instructions to avoid concurrent use with cyclobenzaprine. Side effects and precautions were discussed with patient. Patient is aware to call if pain worsens or if he develops any red flag symptoms to seek emergency care. All questions and concerns have been answered and patient agreed with the plan. Follow up for MRI results and sooner as needed. Patient was informed and verbally consented to the use of an ambient scribe for clinic note documentation during this visit. Orders: Orders MR lumbar spine wo con 05/27/25 M47.816 - Spondylosis without myelopathy or radiculopathy, lumbar region, M48.061 - Spinal stenosis, lumbar region without neurogenic claudication, M54.16 - Radiculopathy, lumbar region, M96.1 - Postlaminectomy syndrome, not elsewhere classified, R15.9 - Full incontinence of feces, R32 - Unspecified urinary incontinence, Z96.89 - Presence of other specified functional implants XR cervical spine 4V 05/27/25 M47.812 - Spondylosis without myelopathy or radiculopathy, cervical region, M62.838 - Other muscle spasm XR thoracic spine 2V Today Z96.89 - Presence of other specified functional implants XR lumbar spine 4V min 05/27/25 M47.816 - Spondylosis without myelopathy or radiculopathy, lumbar region, M48.061 - Spinal stenosis, lumbar region without neurogenic claudication, M54.16 - Radiculopathy, lumbar region, M96.1 - Postlaminectomy syndrome, not elsewhere classified Medications: New methylprednisolone (Medrol (Tushar)) PO PER PKG DIR for 6 days 21 ea 0RF pain M48.061 - Spinal stenosis, lumbar region without neurogenic claudication, M54.16 - Radiculopathy, lumbar region tizanidine 2 mg PO TID PRN 60 tabs 0RF muscle spasticity 30 days M47.812 - Spondylosis without myelopathy or radiculopathy, cervical region, M48.061 - Spinal stenosis, lumbar region without neurogenic claudication, M62.838 - Other muscle spasm Coding Level of Care Code Est Pt Level 4 (74438) Complex EM visit Add On G2211 Diagnoses Cervical spondylosis M47.812 Muscle spasms of neck M62.838 Lumbar spondylosis M47.816 Failed back syndrome of lumbar spine M96.1 Lumbar radiculopathy M54.16 Lumbar spinal stenosis M48.061 Spinal cord stimulator status Z96.89
== END 2025-05-27 10:08 | disposition home or self-care (01) ==
PROVIDERS: PCP Student in an Organized Health Care Education/Training Program; Referring Provider Student in an Organized Health Care Education/Training Program; Visit Provider Nurse Practitioner Family
DX: M47.812 Spondylosis without myelopathy or radiculopathy, cervical region (principal); M62.838 Other muscle spasm; M47.816 Spondylosis without myelopathy or radiculopathy, lumbar region; M96.1 Postlaminectomy syndrome, not elsewhere classified; M54.16 Radiculopathy, lumbar region; M48.061 Spinal stenosis, lumbar region without neurogenic claudication; Z96.89 Presence of other specified functional implants
CPT/HCPCS: 99214

== ENCOUNTER 2025-05-27 10:06 | Outpatient (REF) | payer MEDICAID, SELFPAY ==
--- NOTE | ~2025-05-27 | XR_ITS ---
FINDINGS: Exam: Five-view lumbar spine TECHNIQUE: AP, lateral, lateral spot, bilateral oblique x-rays of the lumbar spine INDICATION: M47.816 - Spondylosis without myelopathy or radiculopathy, lumbar region Prior: May 06, 2023 FINDINGS: A generator projects over the left gluteal region. Wires extend above the field of view of the x-ray. Right upper quadrant clips are likely from prior cholecystectomy. There are surgical clips anterior to L5-L6. The right SI joint is sclerotic on both sides of the joint and slightly irregular. It appears stable. There are 6 lumbar segments. Vertebral body height and alignment is preserved. Posterior pedicle screws are present at L5, L6, and S1. There is nearby spacer at L5-L6. T12-L1: Unremarkable L1-L2: Unremarkable L2-L3: There is mild disc space narrowing, increased since the prior L3-L4: There is subtle retrolisthesis and mild disc space narrowing with small anterior osteophytes, slightly increased since prior. L4-L5: There is moderate disc space narrowing with anterior endplate sclerosis and osteophytes. There is facet sclerosis and osteophytes. L5-L6: Posterior fusion and interbody spacer. Spacer subsidence is stable. L6-S1: Level is fused posteriorly. There is bone graft bridging the facets and interbody space. Stable XR/XR lumbar spine 4V min IMPRESSION: PLIF L5-L6-S1 with L5-L6 interbody spacer. Stable. Electronically signed by: Sebastián Silva MD 05/27/2025 10:48 AM EDT
--- NOTE | ~2025-05-27 | XR_ITS ---
EXAMINATION: XR CERVICAL SPINE CLINICAL INFORMATION: M47.812 - Spondylosis without myelopathy or radiculopathy, cervical region COMPARISON: May 06, 2023 TECHNIQUE: AP, AP odontoid, bilateral oblique, lateral, and swimmer's spine FINDINGS: There is straightening of the cervical lordosis. There is no prevertebral soft tissue swelling. There is mild to moderate narrowing of the neural foramina at C3-4 by osteophytes, right greater than left. XR/XR cervical spine 4V IMPRESSION: There is straightening of the expected cervical lordosis. This can be idiopathic, but can also be related to degenerative change, muscle spasm, or posterior soft tissue injury. Mild to moderate right greater than left neural foraminal narrowing at C3-4 by osteophytes. Electronically signed by: Sebastián Silva MD 05/27/2025 10:51 AM EDT
== END 2025-05-27 10:07 | disposition home or self-care (01) ==
LOC: HO.XRAY 10:06
PROVIDERS: PCP Student in an Organized Health Care Education/Training Program; Visit Provider Nurse Practitioner Family
DX: M47.812 Spondylosis without myelopathy or radiculopathy, cervical region (principal); M62.838 Other muscle spasm; M47.816 Spondylosis without myelopathy or radiculopathy, lumbar region; M96.1 Postlaminectomy syndrome, not elsewhere classified; M54.16 Radiculopathy, lumbar region; M48.061 Spinal stenosis, lumbar region without neurogenic claudication
CPT/HCPCS: 72050; 72110; 99212

== ENCOUNTER → 2025-05-27 10:08 | Outpatient (BNV) | payer MEDICAID, SELFPAY | PROVIDERS: PCP Student in an Organized Health Care Education/Training Program; Visit Provider Radiology Diagnostic Radiology | DX: M99.01 Segmental and somatic dysfunction of cervical region (principal); M47.816 Spondylosis without myelopathy or radiculopathy, lumbar region | CPT/HCPCS: 72050; 72110 ==

== ENCOUNTER → 2025-08-03 09:26 | Outpatient (REF) | payer MEDICAID, SELFPAY ==
--- NOTE | ~2025-08-03 | CT_ITS ---
EXAM: CT lumbar spine without IV contrast TECHNIQUE: Axial imaging was performed from mid T11 through the lower sacrum coccygeal region without IV contrast. Coronal and sagittal reformatted images were generated from the original axial data set. ALARA: The examination used one or more of the following radiation dose reduction techniques: Automated exposure control, iterative reconstruction, and/or adjustment of mA and/or kV. INDICATION: M47.816 - Spondylosis without myelopathy or radiculopathy, PRIOR: X-ray on May 27, 2025 FINDINGS: There is a benign simple renal cyst involving superior pole the right kidney there are 2 stones measuring 2 mm in the right kidney not causing obstruction. There is also likely a small nonobstructing stone in the left kidney 1-2 mm. Moderate atherosclerotic calcifications are present. There are 5 oah-zvl-zdjjldt lumbar segments. T12-L1: There is no disc bulge, herniation, spinal stenosis, or foraminal narrowing. L1-L2: There is mild loss disc height and circumferential broad-based disc bulge with mild facet degeneration not resulting in spinal stenosis or foraminal narrowing. L2-L3: There is mild broad-based disc bulge and ligamentum flavum thickening. There is mild facet degeneration. There is no spinal stenosis or foraminal narrowing. L3-L4: There is mild loss of disc height with endplate sclerosis, osteophytes, and vacuum phenomena. There is circumferential broad-based disc bulge. There is moderate to severe facet degeneration. Right hemilaminectomy has been performed. There is no gross spinal stenosis or foraminal narrowing. L4-L5: Posterior pedicle screws are in place. Posterior laminectomy has been performed. There is interbody spacer. There is mild right and moderate left foraminal narrowing. Spinal canal is not well-demonstrated. L5-S1: Posterior pedicle screws and rods fix level. Posterior laminectomy has been performed. There is interbody bone graft that shows ingrowth into the endplates of L5 and S1. There is no definite foraminal narrowing. Spinal canal is not well demonstrated but there is no gross spinal stenosis. CT/CT lumbar spine wo IV con IMPRESSION: Multilevel degenerative changes as outlined above. L3-L4: Right hemilaminectomy has been performed. There is no gross spinal stenosis or foraminal narrowing. PLIF L4, L5, and S1 with interbody spacer at L4-5 and graft at L5-S1. A laminectomy has also been performed. This level is. Electronically signed by: Sebastián Silva MD 08/03/2025 10:01 AM EDT
--- OUTSIDE RECORDS SUMMARY | 2025-08-03 11:11 | XMS_ITS | Encounter Summary ---
Author Organization [employer] Address [address] [facility] [address] [place] [address] Care Team Providers Care Sterilizer Machine Operator Name Role Phone Mary Ellen Ortega MD Primary Care Pro vider Sommer Martinez PharmD Unavailable [phone] Encounter Details Date Type Department Care Team (Latest Contact Info) Description 07/29/2025 Travel Social History Tobacco Use Types Packs/Day Years Used Date Smoking Tobacco: Former Passive Smoke Exposure: Past Smokeless Tobacco: Former Comments:Quit 19 years ago,s tarted at 10 y until 31 y of age ,2 PQT a day ---PQT a year calc 40 Does not qualify for lung cancer screening at this time due to quitting >15 years ago (AD ) Alcohol Use Standard Drinks/Week Comments Never 0 (1 standard drink = 0.6 oz pur e alcohol) Depression Answer Date Recorded Patient Health Questionnaire-9 Score 11 05/13/2025 Patient Health Questionnaire-9 Score 11 05/13/2025 Last PHQ-9: Questionnaire Data Not on file 0 05/13/2025 Housing Stability Answer Date Recorded What is [...] Answer Date Recorded Patient Health Questionnaire-2 Score 2 05/13/2025 Internet Access Answer Date Recorded Internet Access [...] Care Team (Late st Contact Info) Description 08/16/2025 10:00 AM EDT Medication Management [facility] [address] [place] [address] Sommer Martinez PharmD [address] [place] [address] documented as of this encounter Visit Diagnoses Not on filedocumented in this encounter Additional Health Concerns Assessment Noted Time PHQ-9 Depression Total Score: 11 025 10:50 AM EDT documented as of this encounter Care Teams Sterilizer Machine Operator Relationship Specialty Start Date End Date Mary Ellen Ortega MD [address] [place] [phone] PCP - General Internal Medicine 03/15/23 Sommer Martinez PharmD [address] [place] [address] [phone] Pharmacist Internal Medicine 09/30/24 documented as of this encounter
--- OUTSIDE RECORDS SUMMARY | 2025-08-03 11:11 | XMS_ITS | Encounter Summary ---
Author Organization [employer] Address [address] [facility] [address] [place] [address] Care Team Providers Care Web Support Engineer Name Role Phone Mary Ellen Ortega MD Primary Care Pro vider Sommer Martinez PharmD Unavailable [phone] Reason for Visit * Reason Comments Med Refill Encounter Details Date Type Department Care Team ([facility] st Contact Info) Description 05/27/2025 Refill [facility] [address] [place] [address] Mary Ellen Rosario MD [address] [place], [place] [phone] Social History Tobacco Use Types Packs/Day Years [...] Description 08/16/2025 10:00 AM EDT Medication Management [facility] [address] [place] [phone] Sommer Martinez PharmD [address] [place] [phone] documented as of this encounter Visit Diagnoses Not on filedocumented in this encounter Additional Health Concerns Assessment Noted Time PHQ-9 Depression Total Score: 11 025 10:50 AM EDT documented as of this encounter Care Teams Web Support Engineer Relationship Specialty Start Date End Date Mary Ellen Ortega MD [address] [place] [phone] PCP - General Internal Medicine 03/15/23 Sommer Martinez PharmD [address] [place] [address] [phone] Pharmacist Internal Medicine 09/30/24 documented as of this encounter
--- OUTSIDE RECORDS SUMMARY | 2025-08-03 11:11 | XMS_ITS | Encounter Summary ---
Author Organization [employer] Address [address] [facility] [address] [place] [address] Care Team Providers Care Senior Education Specialist Name Role Phone Mary Ellen Ortega MD Primary Care Pro vider Sommer Martinez PharmD Unavailable [phone] Reason for Visit * Reason Comments Med Refill Encounter Details Date Type Department Care Team (Late st Contact Info) Description 03/08/2024 Refill [facility] [address] [place] [address] Patience Garcia, ANP [address] [place] [address] Social History Tobacco Use Types Packs/Day Years Used Date Smoking Tobacco: Former Passive Smoke Exposure: Past Smokeless Tobacco: Former Comments:Quit 16 years ago,s tarted at 10 y until 31 y of age ,2 PQT a day ---PQT a year calc 40 Alcohol Use Standard Drinks/Week Comments Never 0 (1 standard drink = 0.6 oz pur e alcohol) Depression Answer Date Recorded Patient Health Questionnaire-9 Score 17 12/31/2023 Patient Health Questionnaire-9 Score 17 12/31/2023 Last PHQ-9: Questionnaire Data Not on file 0 12/31/2023 Housing Stability Answer Date Recorded What is your housing situation today? I do not have housing (Staying with others, in a hotel, in a usp, living outside on the street, on a beach, in a car, or in a park 08/20/[address] you li ve. Do you have problems with any of the following? None of the above 08/20/2023 Food Insecurity Answer Date Recorded Within the past 12 months, y ou worried that your food would run out before you got money to buy more: Sometimes True 2023 Within the past 12 months,th e food you bought just didn't last and you didn't have enough money to get more: Sometimes True 01/06/2024 Transportation Answer Date Recorded In the past 12 months, has l ack of transportation kept you from medical appts, meetings, work or from getting things needed for daily living? Yes, it has kept me from medical appointments or getting medications. 01/06/2024 Utilities Answer Date Recorded In the past 12 months, has t he electric, gas, oil or water company threatened to shut off services in your home? No 08/26/2023 Depression Answer Date Recorded Patient Health Questionnaire-2 Score 6 12/31/2023 Comments No Sex and Gender Information Value [...] Description 08/16/2025 10:00 AM EDT Medication Management [facility] [address] [place], [place] [phone] Sommer Martinez PharmD [address] [place] [address] documented as of this encounter Visit Diagnoses Not on filedocumented in this encounter Additional Health Concerns Assessment Noted Time PHQ-9 Depression Total Score: 17 024 12:38 PM EST documented as of this encounter Care Teams Senior Education Specialist Relationship Specialty Start Date End Date Mary Ellen Ortega MD [address] [place] [address] [phone] PCP - General Internal Medicine 03/15/23 Sommer Martinez PharmD [address] [place] [address] [phone] Pharmacist Internal Medicine 09/30/24 documented as of this encounter
--- OUTSIDE RECORDS SUMMARY | 2025-08-03 11:11 | XMS_ITS | Encounter Summary ---
Author Organization [employer] Address [address] [facility] 7t [place] [address] Care Team Providers Care Outboard Motor Inspector Name Role Phone Mary Ellen Ortega MD Primary Care Pro vider Sommer Martinez PharmD Unavailable [phone] Encounter Details Date Type Department Care Team (Late st Contact Info) Description 05/27/2025 Refill [facility] MED & PEDS [address] [place], [place] [phone] Mary Ellen Ortega MD [address] [place] [address] Social History Tobacco Use Types Packs/Day Years [...] the past 12 months, has t he [employer] gas, oil or water company threatened to [...] PM EDT documented as of this encounter Miscellaneous Notes * Telephone Encounter - Mary Ellen Orellana MD - 05/27/2025 8:48 PM EDT Sent alreay documented in this encounter Plan of Treatment Upcoming Encounters Date Type Department Care Team (Late st Contact Info) Description 08/16/2025 10:00 AM EDT Medication Management [facility] MEDICINE [address] [place] [address] Sommer Martinez, ElizabethD [address] [place] [address] documented as of this encounter Visit Diagnoses Not on filedocumented in this encounter Additional Health Concerns Assessment Noted Time PHQ-9 Depression Total Score: 11 025 10:50 AM EDT documented as of this encounter Care Teams Outboard Motor Inspector Relationship Specialty Start Date End Date Mary Ellen Ortega MD [address] [place] [phone] PCP - General Internal Medicine 03/15/23 Sommer Martinez PharmD [address] [place] [phone] Pharmacist Internal Medicine 09/30/24 documented as of this encounter
--- OUTSIDE RECORDS SUMMARY | 2025-08-03 11:11 | XMS_ITS | Encounter Summary ---
Author Organization [employer] Address [address] [place] [address] 7t [place] [address] Care Team Providers Care Vending Machine Assembler Name Role Phone Mary Ellen Ortega MD Primary Care Pro vider Sommer Martinez PharmD Unavailable Reason for Visit * Reason Comments Med Refill Encounter Details Date Type Department Care Team ([facility] st Contact Info) Description 07/26/2025 Refill [facility] MEDICINE [address] [place] [address] Mary Ellen Ortega MD [address] [place], [place] [phone] Social History Tobacco Use Types Packs/Day Years [...] Description 08/16/2025 10:00 AM EDT Medication Management [facility] MEDICINE [address] [place] [phone] Sommer Martinez PharmD [address] [place] [phone] documented as of this encounter Visit Diagnoses Not on filedocumented in this encounter Additional Health Concerns Assessment Noted Time PHQ-9 Depression Total Score: 11 025 10:50 AM EDT documented as of this encounter Care Teams Vending Machine Assembler Relationship Specialty Start Date End Date Mary Ellen Ortega MD [address] [place] [phone] PCP - General Internal Medicine 03/15/23 Sommer Martinez PharmD [address] [place] [address] [phone] Pharmacist Internal Medicine 09/30/24 documented as of this encounter
--- OUTSIDE RECORDS SUMMARY | 2025-08-03 11:11 | XMS_ITS | Encounter Summary ---
Author Organization [employer] Address [address] [place] [address] 7t [place] [address] Care Team Providers Care Motorcycle Fabricator Name Role Phone Mary Ellen Ortega MD Primary Care Pro vider Sommer Martinez PharmD Unavailable [phone] Reason for Visit * Reason Comments Med Refill Encounter Details Date Type Department Care Team ([facility] st Contact Info) Description 02/26/2025 Refill [facility] MEDICINE [address] [place] [address] Mary Ellen Ortega MD [address] [place], [place] [phone] Social History Tobacco Use Types Packs/Day Years [...] Description 08/16/2025 10:00 AM EDT Medication Management [facility] MEDICINE [address] [place] [phone] Sommer Martinez PharmD [address] [place] [phone] documented as of this encounter Visit Diagnoses Not on filedocumented in this encounter Additional Health Concerns Assessment Noted Time PHQ-9 Depression Total Score: 12 024 2:32 PM EDT documented as of this encounter Care Teams Motorcycle Fabricator Relationship Specialty Start Date End Date Mary Ellen Ortega MD [address] [place] [phone] PCP - General Internal Medicine 03/15/23 Sommer Martinez PharmD [address] [place] [address] [phone] Pharmacist Internal Medicine 09/30/24 documented as of this encounter
--- OUTSIDE RECORDS SUMMARY | 2025-08-03 11:11 | XMS_ITS | Encounter Summary ---
Author Organization [employer] Address [address] [facility] 7[address] [place] [address] Care Team Providers Care Clerk Secretary Name Role Phone Mary Ellen Ortega MD Primary Care Pro vider Sommer Martinez PharmD Unavailable [phone] Reason for Visit * Reason Onset Date Comments Appointment Request 03/24/2025 Encounter Details Date Type Department Care Team ([facility] st Contact Info) Description 03/24/2025 Telephone [facility] MEDICINE [address] [place] [address] Mary Ellen Ortega MD [address] [place] [address] Appointment Request Social History Tobacco Use Types Packs/Day Years [...] Answer Date Recorded Patient Health Questionnaire-9 Score 20 03/26/2025 Patient Health Questionnaire-9 Score 20 03/26/2025 Last PHQ-9: Questionnaire Data Not on file 0 03/26/2025 Housing Stability Answer Date Recorded What is [...] Date Recorded Patient Health Questionnaire-2 Score 6 03/26/2025 Internet Access Answer Date Recorded Internet Access Q1 No 02/22/2025 Internet Access Q2 Not on file 02/22/2025 Comments No Sex and Gender Information Value Date Recorded Sex Assigned at Female 03/05/2023 2:56 PM EDT Legal Sex Female 2:39 PM EDT Gender Identity Female 03/05/2023 2:56 PM EDT Sexual Orientation Straight 03/05/2023 2: 56 PM EDT documented as of this encounter Functional Status * Over the past 2 weeks, how often have you been bothered by any of the following problems? Question Answer Date of Assessment Author Patient Health Questionnaire-2 Score 6 03/11 10:46 AM Malcolm García * Little interest or pleasure in doing things Answer Date of Assessment Author Nearly every day 03/26/2025 10:46 AM Malcolm García * Feeling down, depressed, or hopeless Answer Date of Assessment Author Nearly every day 03/26/2025 10:46 AM Malcolm García * Trouble falling or staying asleep, or sleeping too much Answer Date of Assessment Author Nearly every day 03/26/2025 10:46 AM Malcolm García * Feeling tired or having little energy Answer Date of Assessment Author Nearly every day 03/26/2025 10:46 AM Malcolm García * Poor appetite or overeating Answer Date of Assessment Author Nearly every day 03/26/2025 10:46 AM Malcolm García * Feeling bad about yourself - or that you are a failure or have let yourself or your family down Answer Date of Assessment Author Not at all 03/26/2025 10:46 AM Malcolm García * Trouble concentrating on things, such as reading the newspaper or watching television Answer Date of Assessment Author Nearly every day 03/26/2025 10:46 AM Malcolm García * Moving or speaking so slowly that other people could have noticed? Or the opposite - being so fidgety or restless that you have been moving around a lot more than usual. Answer Date of Assessment Author More than half the days 03/26/2025 10:46 AM Malcolm García * Thoughts that you would be better off or hurting yourself in some way Answer Date of Assessment Author Not at all 03/26/2025 10:46 AM Malcolm García * Patient Health Questionnaire-9 Score Answer Date of Assessment Author 20 03/26/2025 10:46 AM Malcolm García * How difficult have these problems made it for you to do your work, take care of things at home, or get along with other people? Answer Date of Assessment Author Very difficult 03/26/2025 10:46 AM Malcolm García * Over the last 2 weeks, how often have you been bothered by any of the following problems? Question Answer Date of Assessment Author Feeling nervous, anxious, or on edge 3 03/11 10:46 AM Malcolm García Not being able to stop or co ntrol worrying 3 03/26/2025 10:46 AM Malcolm García Worrying too much about diff erent things 3 03/26/2025 10:46 AM Malcolm García Trouble relaxing 3 03/26/2025 10:46 AM Malcolm García Being so restless that it is hard to sit still 3 03/26/2025 10:46 AM Malcolm García Becoming easily annoyed or irritable 2 03/11 10:46 AM Malcolm García Feeling afraid as if somethi ng awful might happen 3 03/26/2025 10:46 AM EDT Malcolm Davis MILAD-7 Total Score 20 03/26/2025 10:46 AM EDT Malcolm Davis documented as of this encounter Miscellaneous Notes * Telephone Encounter - Halima Workman - 03/24/2025 12:52 PM EDT Tc from pt requesting appointment for DERM the soonest availability. Denied triage documented in this encounter Plan of Treatment Upcoming Encounters Date Type Department Care Team (Late st Contact Info) Description 08/16/2025 10:00 AM EDT Medication Management [facility] MEDICINE [address] [place] [address] Sommer Martinez PharmD [address] [place] [address] [phone] documented as of this encounter Visit Diagnoses Not on filedocumented in this encounter Additional Health Concerns Assessment Noted Time PHQ-9 Depression Total Score: 12 024 2:32 PM EDT documented as of this encounter Care Teams Clerk Secretary Relationship Specialty Start Date End Date Mary Ellen Ortega MD [address] [place] [address] [phone] PCP - General Internal Medicine 03/15/23 Sommer Martinez PharmD [address] [place] [address] [phone] Pharmacist Internal Medicine 09/30/24 documented as of this encounter
--- OUTSIDE RECORDS SUMMARY | 2025-08-03 11:12 | XMS_ITS | Encounter Summary ---
Author Organization [employer] [facility] Address [address] [place] [address] 7[address] [place] [address] Care Team Providers Care Clearance Rep Name Role Phone Mary Ellen Ortega MD Primary Care Pro vider Sommer Martinez PharmD Unavailable [phone] Reason for Visit * Reason Onset Date Comments Referral 04/01/2023 Encounter Details Date Type Department Care Team ([facility] st Contact Info) Description 04/01/2023 Telephone [facility] MEDICINE [address] [place] [address] Mary Ellen Ortega MD [address] [place] [address] Referral Social History Tobacco Use Types Packs/Day Years Used Date Smoking Tobacco: Former Cigarettes Passive Smoke Exposure: Past Smokeless Tobacco: Former Comments:Quit 16 years ago,s tarted at 10 y until 31 y of age ,2 PQT a day ---PQT a year calc 40 Alcohol Use Standard Drinks/Week Comments Never 0 (1 standard drink = 0.6 oz pur e alcohol) Depression Answer Date Recorded Patient Health Questionnaire-9 Score 18 03/15/2023 Depression Answer Date Recorded Patient Health Questionnaire-2 Score 6 03/15/2023 Comments Unknown Sex and Gender Information Value Date Recorded Sex Assigned at Female 03/05/2023 2:56 PM EDT Legal Sex Female 2:39 PM EDT Gender Identity Female 03/05/2023 2:56 PM EDT Sexual Orientation Straight 03/05/2023 2: 56 PM EDT COVID-19 Exposure Response Date Recorded In the last 10 days, have yo u been in contact with someone who was confirmed or suspected to have Coronavirus/COVID-19? No / Unsure 03/26/2023 1:56 PM EDT documented as of this encounter Miscellaneous Notes * Telephone Encounter - Faith Null RN - 04/01/2023 11:19 AM EDT Pt was seen by [facility] on 03/15/23 and appears to have an upcoming appt with [facility] on 04/05/23. Unsure if ptstill has pending appt. Will send message to [facility] to outreach pt regarding request. * Telephone Encounter - Sawyer Quiñonez - 04/01/2023 10:16 AM EDT Tc from pt requesting status on referral for a psychiatrist. Please contact pt at [phone] documented in this encounter Plan of Treatment Upcoming Encounters Date Type Department Care Team (Late st Contact Info) Description 08/16/2025 10:00 AM EDT Medication Management [facility] MEDICINE [address] [place], [place] [phone] Sommer Martinez PharmD [address] [place] [address] documented as of this encounter Visit Diagnoses Not on filedocumented in this encounter Additional Health Concerns Assessment Noted Time PHQ-9 Depression Total Score: 18 023 1:27 PM EDT documented as of this encounter Care Teams Clearance Rep Relationship Specialty Start Date End Date Mary Ellen Ortega MD [address] [place] [address] [phone] PCP - General Internal Medicine 03/15/23 Sommer Martinez PharmD [address] [place] [address] [phone] Pharmacist Internal Medicine 09/30/24 documented as of this encounter
--- OUTSIDE RECORDS SUMMARY | 2025-08-03 11:12 | XMS_ITS | Encounter Summary ---
Author Organization [employer] Address [address] [place] [address] 7t [place] [address] Care Team Providers Care [employer]evelopment Site Manager Name Role Phone Mary Ellen Ortega MD Primary Care Pro vider Sommer Martinez PharmD Unavailable [phone] Reason for Visit * Reason Comments Med Refill Encounter Details Date Type Department Care Team ([facility] st Contact Info) Description 02/11/2025 Refill [facility] MEDICINE [address] [place] [address] Mary Ellen Ortega MD [address] [place], [place] [phone] Tenderness over maxillary sinus Social History Tobacco Use Types Packs/Day Years [...] with others, in a hotel, in a custodial, living outside on the street, on a [...] Recorded Patient Health Questionnaire-2 Score 4 07/24/2024 Comments No Sex and Gender Information Value [...] Description 08/16/2025 10:00 AM EDT Medication Management [facility] [address] [place] [address] Sommer Martinez PharmD [address] [place] [address] documented as of this encounter Visit Diagnoses Diagnosis Tenderness over maxillary sinus documented in this encounter Additional Health Concerns Assessment Noted Time PHQ-9 Depression Total Score: 12 024 2:32 PM EDT documented as of this encounter Care Teams [employer] Manager Relationship Specialty Start Date End Date Mary Ellen Ortega MD [address] [place] [address] PCP - General Internal Medicine 03/15/23 Sommer Martinez PharmD [address] [place] [phone] Pharmacist Internal Medicine 09/30/24 documented as of this encounter
--- OUTSIDE RECORDS SUMMARY | 2025-08-03 11:12 | XMS_ITS | Clinical Summary ---
Author Organization [employer] Address [address] [place] [address] [address] [place] [address] Care Team Providers Care Director Investment [employer]ing Name Role Phone Mary Ellen Ortega MD Primary Care Pro vider Sommer Martinez PharmD Unavailable [phone] Allergies Active Allergy Reactions Criticality Noted Date Comments Azithromycin Rash Low 05/01/2023 Fish Allergy 05/13/2025 Fish Oil 07/25/2023 Iodinated Contrast Media Angioedema 03/05/2023 Nitrofurantoin Itching 05/13/2025 FACIAL ERYTHEMA Shrimp Flavor Agent (Non-Screening) 05/13/2025 Medications * This document contains information received from the source organization and may not represent a complete record from that organization. Oral Medication Containers misc 023 Active Blood Pressure Monitoring (Omron 3 Series BP Monitor) device 023 Active albuterol (2.5 MG/3ML) 0.083% nebulizer solution INHALE 1 AMPULE USING A NEBULIZER EVERY 6 HOURS NEEDED FOR WHEEZING 90 mL 2 024 Active Ventolin HFA 108 (90 Base) MCG/ACT inhaler INHALE 2 PUFFS EVERY 4 HOURS NEEDED FOR WHEEZING 18 g 3 024 Active Diclofenac Sodium 1 % gelIndications :Pain of toe of right foot APPLY 2 GRAMS TOPICALLY TO AFFECTED AREA(S) FOUR TIMES DAILY FOR PAIN AND SWELLING 100 g 2 024 Active Adderall XR 25 MG 24 hr capsule Take 25 mg by mouth in the morning. 024 Active pantoprazole (ProtoNix) 40 MG EC tablet Take 40 mg by mouth in the morning. Active sodium chloride (Cicero) 0.65 % nasal sprayIndicatio ns:Tenderness over maxillary sinus Administer 1 spray into each nostril if needed for congestion. 15 mL 1 024 2024 Active betamethasone, augmented, (Diprolene) 0.05 % ointmentIndica tions:Dyshidro tic eczema Apply topically every 12 (twelve) hours if needed (affected skin ,dermatitis). APPLY TO THE AFFECTED AREA(S) TOPICALLY TWICE DAILY 15 g Active desonide (DesOwen) 0.05 % creamIndicatio ns:Seborrheic dermatitis APPLY TOPICALLY TO FACE 1-2 TIMES EVERY DAY NEEDED 15 g 024 Active Incruse Ellipta 62.5 MCG/ACT aerosol powder INHALE 1 PUFF BY MOUTH EVERY DAY AT THE SAME TIME RINSE MOUTH AFTER USING 30 each 2 Active hydrOXYzine HCl (Atarax) 10 MG tablet TAKE 1 TABLET BY MOUTH AT BEDTIME NEEDED FOR SLEEP 30 tablet Active mirtazapine (Remeron) 15 MG tablet Take 15 mg by mouth at bedtime. Active Continuous Glucose Mileage Clerk (FreeStyle Taco 3 [place]) device 1 each Once per day. Use as directed for CGM 1 each 025 Active Continuous Glucose Sensor (FreeStyle Taco 3 Plus Sensor) misc 1 each every 15 days. Apply 1 every 15 days as directed for CGM 2 each Active Fluticasone Furoate-Vilant zoya (Breo Ellipta) 100-25 MCG/ACT aerosol powder Inhale 1 Inhalation Once per day. 60 each Active metFORMIN (Glucophage) 500 MG tablet TAKE 1 TABLET BY MOUTH EVERY MORNING 90 tablet Active montelukast (Singulair) 10 MG tablet TAKE 1 TABLET BY MOUTH AT BEDTIME 90 tablet Active potassium chloride CR (Klor-Con) 10 MEQ ER tablet TAKE 1 TABLET BY MOUTH EVERY MORNING 90 tablet 025 Active valsartan-hydr oCHLOROthiazid e (Diovan-HCT) 320-25 MG tablet TAKE 1 TABLET BY MOUTH EVERY MORNING 90 tablet 1 025 Active olopatadine (Patanol) 0.1 % ophthalmic solutionIndica tions:Sinus pressure 2 drops up to twice daily as needed for eye itching/allergies 5 mL 025 Active acetaminophen (Tylenol Extra Strength) 500 MG tabletIndicati ons:Sinus pressure TAKE 1 TO 2 TABLETS BY MOUTH UP TO THREE TIMES DAILY NEEDED FOR PAIN 45 tablet Active glucose blood (FreeStyle Precision Geoff Test) test strip Use to test blood sugar 2 times daily in case of CGM failure or extremes of BG 50 each 11 025 2025 Active FLUoxetine (PROzac) 20 MG capsule Take 20 mg by mouth in the morning. Active ketoconazole (NIZOral) 2 % shampooIndicat ions:Seborrhei c dermatitis APPLY TO SCALP TWICE DAILY, LEAVE ON FOR 5 MINUTES THEN RINSE. 120 mL 1 025 Active insulin lispro (HumaLOG) 100 UNIT/ML injectionIndic ations:Type 2 diabetes mellitus with other circulatory complication, with long-term current use of insulin ([facility]) INJECT 10 UNITS SUBCUTANEOUSLY THREE TIMES DAILY BEFORE MEALS 15 mL 5 025 Active EPINEPHrine (Epipen) 0.3 MG/0.3ML injection syringe Inject 0.3 mL (0.3 mg) as directed 1 (one) time for 1 dose. use as directed for allergic reaction and then call 911 1 each 2 Active insulin glargine (Lantus SoloStar) 100 UNIT/ML pen Inject 24 Units under the skin Once per day 3 mL 025 Active insulin pen needle (TechLite Pen [place]) 32G x 4 mm [facility] USE DIRECTED FOUR TIMES DAILY 100 each 3 025 Active Trulicity 1.5 MG/0.5ML solution auto-injector INJECT ONE PEN (=1.5MG) SUBCUTANEOUSLY ONCE A WEEK DIRECTED 2 mL 025 Active cetirizine (ZyrTEC) 10 MG tablet TAKE 1 TABLET BY MOUTH AT BEDTIME 90 tablet 1 025 Active tiZANidine (Zanaflex) 2 MG tablet Take 2 mg by mouth if needed in the morning, at noon, and at bedtime for muscle spasms. 025 Active gabapentin (Neurontin) 100 MG capsule Take 200 mg by mouth in the morning and 200 mg at noon and 200 mg in the evening. Active sodium chloride (Cicero) 0.65 % nasal spray Administer 1 spray into each nostril if needed for congestion. 15 mL 2 025 2025 Active fluticasone (Flonase) 50 MCG/ACT nasal spray Administer 1-2 sprays into each nostril Once per day. Shake gently. Before first use, prime pump. After use, clean tip and replace cap. To treat for 21 days only for acute sinusitis does not need refill 16 g 025 2025 Active atorvastatin (Lipitor) 20 MG tablet Take 1 tablet (20 mg) by mouth in the morning. 90 tablet 025 Active dapagliflozin (Farxiga) 10 MG Take 1 tablet (10 mg) by mouth in the morning. 90 tablet 025 Active clopidogrel (Plavix) 75 MG tablet Take 1 tablet (75 mg) by mouth in the morning. 90 tablet 025 Active aspirin (Aspirin Low Dose) 81 MG chewable tablet TAKE 1 TABLET BY MOUTH EVERY MORNING (CHEW) 90 tablet 025 Active amLODIPine (Norvasc) 10 MG tablet Take 1 tablet (10 mg) by mouth at bedtime. 90 tablet 025 Active gabapentin (Neurontin) 100 MG capsule Take 2 capsules (200 mg) by mouth every 8 (eight) hours. 180 capsule 023 2024 Discontinued(O ther) aspirin (Aspirin Low Dose) 81 MG chewable tablet TAKE 1 TABLET BY MOUTH EVERY MORNING (CHEW) 90 tablet 025 2024 Discontinued(R eorder (will not trigger notification to Pharmacy)) atorvastatin (Lipitor) 20 MG tablet TAKE 1 TABLET BY MOUTH EVERY MORNING 90 tablet 025 2024 Discontinued(R eorder (will not trigger notification to Pharmacy)) amLODIPine (Norvasc) 10 MG tablet TAKE 1 TABLET BY MOUTH AT BEDTIME 90 tablet 025 2024 Discontinued(R eorder (will not trigger notification to Pharmacy)) clopidogrel (Plavix) 75 MG tablet TAKE 1 TABLET BY MOUTH EVERY MORNING 90 tablet 025 2024 Discontinued(R eorder (will not trigger notification to Pharmacy)) dapagliflozin (Farxiga) 10 MG TAKE 1 TABLET BY MOUTH EVERY MORNING 90 tablet 025 2024 Discontinued(R eorder (will not trigger notification to Pharmacy)) cyclobenzaprin e (Flexeril) 10 MG tabletIndicati ons:Chronic low back pain, unspecified back pain laterality, unspecified whether sciatica present Take 1 tablet (10 mg) by mouth if needed each day for muscle spasms. PRN for back pain 28 tablet 025 2024 Discontinued(O ther) dextromethorph an 15 MG/5ML syrup Take 10 mL (30 mg) by mouth if needed in the morning, at noon, in the evening, and at bedtime for cough for up to 7 days. 120 mL 025 2024 Active Problems Problem Noted Date Diagnosed Date Upper respiratory infection 07/06/2025 Acute cystitis with hematuria 05/10/2025 De Quervain's tenosynovitis, bilateral Assessment & Plan (01/06/2025 10:00 AM EST): Patient patient is a hand and thumb immobilizer on both hands. Take meloxicam for 1 to 2 weeks daily and Tylenol as needed pain. Advised to both eyes for 2 to 5 minutes on both hands alternated followed by diclofenac gel twice daily. Referred to OT and advised to start acupuncture clinic. Follow-up with PCP Thumb tendonitis 01/06/2025 Assessment & Plan (01/06/2025 10:00 AM EST): Needs a thumb immobilizer as above. Ill-fitting dentures 11/18/2024 Dental calculus 11/17/2024 Elevated alkaline phosphatase level 11/09/2024 Atrophic maxilla 05/21/2024 Complete edentulism 04/27/2024 Severe dental caries 03/20/2024 Periodontal disease 03/20/2024 Partially edentulous mandible 03/20/2024 PAD (peripheral artery disease) 01/14/2024 Abnormal uterine bleeding (AUB) 01/14/2024 Lung nodule 01/14/2024 Nephrolithiasis 07/25/2023 Assessment & Plan (07/25/2023 7:23 PM EDT): -from records obtained -CT abd/pelvis 2021 : , lung base nodule. ,bilateral small renal stones Right more than left. Enlarged probable fibroid uterus -rec for pelvic US -will refer for CXR at future visit for noted nodule -referred today for renal for hx of renal stones and will refer at future visit for TV/pelvic US for uterine fibroid Murmur, cardiac 07/25/2023 Assessment & Plan (07/25/2023 6:53 PM EDT): 3/6 systolic murmur in 2nd right intercostal space -reports as chronic per pt Denies CP,or GERMAN but pt with minor activity -referred for echocardiogram Urinary incontinence 07/25/2023 Assessment & Plan (07/25/2023 7:28 PM EDT): Hx of urinary incontinence when changing of position Pt has regular diapers but requesting pull up diapers-requested today to nurse staff Psoriasis 05/24/2023 Chronic pain 05/01/2023 Assessment & Plan (07/25/2023 7:35 PM EDT): -cervical/lumbar XR 04/2023 By PM: cervical : mild loss of cervical disc space bw C5-C7 and cervical spondylosis, Lumbar : posterior fusion hardware on L4-L5 and L5-S1 with interdisc spacer at L4-L5,hardware appears intact . multiple level lumbar spondylosis with moderate loss of disc space L3-L4 Has chronic pain on spinal cord implant -referred already to pain management x battery change of implant -already following w PM -PA in process for implant Exchange -pt requesting [employer] info-requested to nurse staff to help w info Assessment & Plan (05/31/2023 9:58 PM EDT): Has chronic pain on spinal cord implant -f already w pain management x battery change of implant --PA in process by PM -tylenol prn x back pain -meloxicam px 7.5 mg x1 tab x mod pain , 2 tab x more intense pain -but advised to avoid as possible Assessment & Plan (05/01/2023 7:21 PM EDT): Has chronic pain on spinal cord implant -referred already to pain management x battery change of implant -has apt already x 05/06/2023 ALBERTINA (obstructive sleep apnea) 05/01/2023 Assessment & Plan (07/25/2023 6:54 PM EDT): Hx of ALBERTINA not using CPAP x long time -referred to sleep med -has apt 07/2023 Assessment & Plan (05/31/2023 9:59 PM EDT): Hx of ALBERTINA not using CPAP x long time -referred to sleep med -has apt 07/2023 Assessment & Plan (05/01/2023 7:26 PM EDT): Hx of ALBERTINA not using CPAP x long time -referred today to sleep med Family history of cancer 05/01/2023 Assessment & Plan (07/25/2023 7:13 PM EDT): Pt has 1 sister w breat and another sister w ovarian ca Pt unsure if siblings had BRCA gene test -discussed about BRCA testing in blood and implications is test if positive -pt understands and would like to be tested -ordered at lat visit but test was not done-will reorder at next apt Assessment & Plan (05/31/2023 10:10 PM EDT): Pt has 1 sister w breat and another sister w ovarian ca Pt unsure if siblings had BRA gene test -discussed about BRCA testing in blood and implications is test if positive -pt understands and would like to be tested -gave at last visit to nurse staff form completed x [facility] of informed consent Assessment & Plan (05/01/2023 7:28 PM EDT): Pt has 1 sister w breat and another sister w ovarian ca Pt unsure if siblings had BRA gene test -discussed today about BRCA testing in blood and implications is test if positive -pt understands and would like to be tested -gave today to nurse staff form completed x [facility] of informed consent Severe episode of recurrent major depressive disorder, without psychotic features 03/15/2023 Assessment & Plan (07/29/2024 10:18 AM EDT): During IBH Consult Radha presenting with depressed mood, hopelessness, irritable mood, loss of interests/pleasure , change in appetite or weight overeating, changes in sleep difficulty falling asleep, psychomotor retardation, fatigue/loss of energy, difficulty concentrating and excessive worry/anxiety, difficulty controlling worry, and anxiety/worry associated to restlessness and/or feeling keyed-up/On edge , easily fatigued , difficulty concentrating and/or mind going blank , and irritability; for a period of 18+ mo, for some symptoms in the context of family issues, employment concern, and housing. Pt reports slight improvement of sxs. She was able to find an apartment and is not longer living with her dad. 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 Radha is engaged with psychiatry services with [facility]; reports medication is working and helping to decrease sxs. Still waiting for OP individual therapy (currently on wait list). During today's consult, clinician engaged patient with active, reflective listening. Reviewed and assessed for risk, current stressors and protective factors. Pt agreed to follow-up with [facility] regarding referral placed. clinician will be available during next medical appt if needed. Assessment & Plan (06/24/2024 2:33 PM EDT): During IBH Consult Radha presenting with depressed mood, loss of interests/pleasure , changes in sleep difficulty falling asleep, change in appetite or weight reduce appetite, psychomotor retardation, trouble concentrating, thoughts of worthlessness or guilt, fatigue/loss of energy, inappropriate guilt , hopelessness, difficulty concentrating; for a period of 18+ mo, for all symptoms in the context of family issues, illness or family illness, and housing. Radha felt emotionally overwhelmed due to having too many different stressors. She's taking care of her father which is causing a lot of anxiety, stress and a difficult relationship with her family. She's maureen having difficulties managing anger. Discussed medication to use as PRN to decrease symptoms per patient's request. Her sleep has been an issue and causing depressive mood. During today's consult, clinician engaged patient with active, reflective listening. Reviewed and assessed for risk, current stressors and protective factors. Pt agreed to follow-up with [facility] regarding referral placed (I printed out letter w agency information). clinician will be available during next medical appt if needed. Pt will be referred to CM to assist with food insecurity. Assessment & Plan (12/31/2023 2:07 PM EST): During IB Consult Radha presenting with depressed mood, loss of interests/pleasure , changes in sleep difficulty falling asleep, change in appetite or weight reduce appetite, psychomotor agitation, trouble concentrating, fatigue/loss of energy, inappropriate guilt , difficulty concentrating and excessive worry/anxiety, difficulty controlling worry, restless/keyed up/On edge, easily fatigued, difficulty concentrating/Mind going blank , irritability, and sleep disturbance difficulty falling asleep; for a period of 18+ mo, for all symptoms in the context of , family issues, illness or family illness, recent move, and housing. Radha has recently moved to [place] after her . She's currently taking care of her dad and living with him. Her children live in different states. Reports lack of communication with them and feelings of remorse. PLAN: (check all that apply) New/Additional Services needed PCP management Off-site services for Continue with current services (defined as services in the past 12 months) . Referral will be placed for OP individual therapy. Assessment & Plan (07/25/2023 7:11 PM EDT): PHQ9: 18,States already following here w psychiatrist and psychtx Reports to be stable -denies SI -continue care w specialist and psych meds refilled by psychiatrist -pt reports gabapentin 200 mg TID Assessment & Plan (05/31/2023 10:10 PM EDT): PHQ9: 18,States already following here w psychiatrist and psychtx Reports to be stable -denies SI -continue care w specialist and psych meds refilled by psychiatrist -meds changed done by specialist -stopping celexa and mirtazapine and started bupropion but pt stopped x GI SE --pt reports gabapentin dose was increased to 200 mg TID -referred today to CM for housing issues Assessment & Plan (05/01/2023 7:25 PM EDT): PHQ9: 18,States already following here w psychiatrist and psychtx Reports to be stable -denies SI -continue care w specialist and psych meds refilled by psychiatrist -meds changed done by specialist -stopping celexa and mirtazapine and started bupropion but pt stopped x GI SE --pt has apt w psychiatrist tomorrow will discuss this Assessment & Plan (03/15/2023 9:34 PM EDT): PHQ9: 18,States was f w psychiatrist and psychtx in [place] Reports is taking all meds now except her adderall x last 3 months Reports to be stable -denies SI -referred today to who evaluated pt and will refer for outpt psychotx and x pharmacology clinic here -explained to pt that will hold x now on adderall referral until f w specialist -pt agreed w plan -referred today to CM x housing insecurity Severe anxiety 03/15/2023 Assessment & Plan (07/29/2024 10:18 AM EDT): During IBH Consult Radha presenting with depressed mood, hopelessness, irritable mood, loss of interests/pleasure , change in appetite or weight overeating, changes in sleep difficulty falling asleep, psychomotor retardation, fatigue/loss of energy, difficulty concentrating and excessive worry/anxiety, difficulty controlling worry, and anxiety/worry associated to restlessness and/or feeling keyed-up/On edge , easily fatigued , difficulty concentrating and/or mind going blank , and irritability; for a period of 18+ mo, for some symptoms in the context of family issues, employment concern, and housing. Pt reports slight improvement of sxs. She was able to find an apartment and is not longer living with her dad. 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 Radha is engaged with psychiatry services with [facility]; reports medication is working and helping to decrease sxs. Still waiting for OP individual therapy (currently on wait list). During today's consult, clinician engaged patient with active, reflective listening. Reviewed and assessed for risk, current stressors and protective factors. Pt agreed to follow-up with [facility] regarding referral placed. clinician will be available during next medical appt if needed. Assessment & Plan (12/31/2023 2:07 PM EST): During IBH Consult Radha presenting with depressed mood, loss of interests/pleasure , changes in sleep difficulty falling asleep, change in appetite or weight reduce appetite, psychomotor agitation, trouble concentrating, fatigue/loss of energy, inappropriate guilt , difficulty concentrating and excessive worry/anxiety, difficulty controlling worry, restless/keyed up/On edge, easily fatigued, difficulty concentrating/Mind going blank , irritability, and sleep disturbance difficulty falling asleep; for a period of 18+ mo, for all symptoms in the context of , family issues, illness or family illness, recent move, and housing. Rad[place] recently [place] her . She's currently taking care of her dad and living with him. Her children live in different states. Reports lack of communication with them and feelings of remorse. PLAN: (check all that apply) New/Additional Services needed PCP management Off-site services for Continue with current services (defined as services in the past 12 months) . Referral will be placed for OP individual therapy. Tobacco use 03/15/2023 Assessment & Plan (07/25/2023 7:10 PM EDT): Quit 16 years ago,started at 10 y until 31 y of age ,2 PQT a day ---PQT a year calc 40 -per pt had neg lung ca screening done w previous PCP-not able to get record but given > 15 y that stopped smoking no need x further screening Assessment & Plan (05/31/2023 10:07 PM EDT): Quit 16 years ago,started at 10 y until 31 y of age ,2 PQT a day ---PQT a year calc 40 -per pt had neg lung ca screening done w previous PCP-not able to get record but given > 15 y that stopped smoking no need x further screening Assessment & Plan (05/01/2023 7:12 PM EDT): Quit 16 years ago,started at 10 y until 31 y of age ,2 PQT a day ---PQT a year calc 40 -per pt had neg lung ca screening done w previous PCP-not able to get record but given > 15 y that stopped smoking no need x further screening Assessment & Plan (03/15/2023 9:24 PM EDT): Quit 16 years ago,started at 10 y until 31 y of age ,2 PQT a day ---PQT a year calc 40 -per pt had neg lung ca screening done w previous PCP-will try to get records Health care maintenance 03/15/2023 Assessment & Plan (07/25/2023 7:26 PM EDT): -PPD neg per pt -menopause: 51 y of age -Pap smear : 08/2021 Neg---reports hx of neg pap smear will repeat in 2023 -MM 06/2023:Grouped calcifications in the upper-outer quadrant of the left breast warrants additional mammographic imaging magnification.BI-RADS BI-RADS 0 - Incomplete: Needs additional Imaging-already has apt w radiologist for Dx test to be done this week -colonoscopy 2017: neg per pt but was told to repeat in 2 years x poor prep -no record of test--referred already to GI -vaccines: per pt got covid 19 x2 -last in 05/2022--s/p Bivalent , s/P tdap 03/2023 ,S/p zoster x1 03/2023 --2nd dose in 2 to 6 mo ,s/p p23 2012 from previous PCP's records, hep B not immune-wants vaccination to start at next apt -05/2023 Ca 10.4 but corrected is wnl at 10.08 -also at hospital 05/2023 Was wnl, alk phos 124<---121 -will do GGT in 3 mo and if still elevated alk phos on chem will do abd US at next apt -will do screening ch/gn urin and vit D in 3 mo -ordered but never done ------ -CT head w/o contrast 12/2021: Normal from previous PCP'records Assessment & Plan (05/31/2023 10:08 PM EDT): -PPD neg per pt -menopause: 51 y of age -Pap smear : 08/2021 Neg---reports hx of neg pap smear will repeat in 2023 -MM 2018: No report found -but states normal ?---referred already -[facility] today to check status of Referral -colonoscopy 2017: neg per pt but was told to repeat in 2 years x poor prep -no record of test--referred already to GI -vaccines: per pt got covid 19 x2 -last in 05/2022--s/p Bivalent , s/P tdap 03/2023 ,S/p zoster x1 03/2023 --2nd dose in 2 to 6 mo ,s/p p23 2012 from previous PCP's records -will do screening ch/gn , rpr, hep B panel not done at previous annual labs ------ -CT head w/o contrast 12/2021: Normal from previous PCP'records Assessment & Plan (05/01/2023 7:16 PM EDT): -PPD neg per pt -menopause: 51 y of age -Pap smear : 08/2021 Neg---reports hx of neg pap smear will repeat in 2023 -MM 2018: No report found -but states normal ?---referred today -colonoscopy 2017: neg per pt but was told to repeat in 2 years x poor prep -no record of test--referred today -vaccines: per pt got covid 19 x2 -last in 05/2022--Today Bivalent , s/P tdap 03/2023 ,S/p zoster x1 03/2023 --2nd dose in 2 to 6 mo ,s/p p23 2012 from previous PCP's records -will do screening ch/gn , rpr, hep B panel not done at previous annual labs ------ -CT head w/o contrast 12/2021: Normal from previous PCP'records Assessment & Plan (03/15/2023 9:37 PM EDT): -menopause: 51 y of age -pap smear: per pt 08/2022: normal -will try to get records -MM: states not able to obtain due wheelchair bound--getting per pt breast US 08/2022 Normal -will try to get records -colonoscopy: 2019 neg per pt - -will try to get records -vaccines: per pt got all vaccines? -will try to get records -PPD neg per pt -had labs already recently and reviewed but will repeat DM labs in fasting and check x ch/gn , rpr, hep B panel, BRCA blood test x fx hx at next visit -will offer MTP at next visit Type 2 diabetes mellitus, wi th long-term current use of insulin 03/05/2023 Assessment & Plan (07/25/2023 7:09 PM EDT): Pt on metformin 500 mg daily ( states poor GI tolerance to higher dose) ,on GLP1 before with good effect but insurance not covering ( covered her previous insurance at another state) and insulin on lispro 15 TID and basal insuline 30 u HS and fargixa 10 mg 05/2023 hb1AC 7.3<---7.6,trig and LDL 52, trig 238<---444 Home CBgs reported in fasting better since increased farxiga but still in 140s to 160s in fasting no longer 200s readings -continue freestyle monitoring -continue farxiga to 10 mg daily ,metformin 500 mg daily,insulin on lispro 15 TID -increase basal insuline to 34 from 30 u HS -continue atorvastatin but increase to 20 mg from 10 mg daily -LDL is < 70 but elevated trig and states allergy to fish oil and no indication for fibrates -referred to licensed sales producer and retail service technician at previous visit -[facility] will check status of referrals -will repeat DM labs and fasting in 3 mo Assessment & Plan (05/31/2023 10:04 PM EDT): Pt on metformin 500 mg daily ( states poor GI tolerance to higher dose) ,on GLP1 before with good effect but insurance not covering ( covered her previous insurance at another state) and insulin on lispro 20 TID and basal insuline 30 u HS and fargixa 5 mg 02/2023 hb1AC 7.6,trig and colesterol elevated ( done in fasting) Reports since not using her GLP1 x last couple of weeks again CBgs in fasting are elevated in 180s from prior well controlled on medication---GP1 needs PA from her insurance -continue freestyle monitoring -increase farxiga to 10 mg daily -continue low dose atorvastatin started in 03/2023 w no SE--will increase dose as needed if LDL > 70 -referred to licensed sales producer and retail service technician at previous visit -[facility] -[facility] will check status of referrals -will repeat DM labs and fasting-will RTC this week in fasting -if ongoing elevated trig will add omega 3 BID Assessment & Plan (05/01/2023 7:45 PM EDT): Pt on metformin 500 mg daily ( states poor GI tolerance to higher dose) ,on GLP1 and insulin on lispro 20 TID and basal insuline 26 u HS 02/2023 hb1AC 7.6,trig and colesterol elevated ( done in fasting) Reports since not using her GLP1 x last couple of weeks again CBgs in fasting are elevated in 180s from prior well controlled on medication---GP1 needs PA from her insurance -continue meds x now and started PA x ozempic already and freestyle monitoring --explained to pt that given is not using GLP1 for now to increase her lantus to 34 and if in next 10 days CBGs in fasting still > 140CBGs to increase to 36 u HS but once GLP1 are resumed to go back to lantus 30 u HS -pt agreed and understands plan. -continue low dose atorvastatin started in 03/2023 w no SE--will increase dose as needed if LDL > 70 -referred to licensed sales producer and retail service technician at previous visit -[facility] -[facility].A will check status of referrals -will repeat DM labs and fasting-will RTC this week in fasting -if ongoing elevated trig will add omega 3 BID Assessment & Plan (03/15/2023 9:36 PM EDT): Pt on metformin 500 mg daily ( states poor GI tolerance to higher dose) ,on GLP1 and insulin on lispro 20 TID and basal insuline 26 u HS 02/2023 hb1AC 7.6,trig and colesterol elevated ( done in fasting) -continue meds x now and resume ozempic-per pt last used 3 mo ago -start statins -low dose lipitor -referred today to licensed sales producer and retail service technician -will repeat DM labs and fasting lipids in 6 weeks Assessment & Plan (03/05/2023 5:43 PM EDT): Pt here to establish care. Much of the visit was confirmation and sending medications. Medications reviewed and sent. -pharmacy referral for medication reconciliation -labs ordered -old records requested -new PCP appointment Hypertension 03/05/2023 Assessment & Plan (07/25/2023 7:00 PM EDT): -BP elevated today again and states still at home having elevated readings for the past month -referred Ophthalmology at last visit -pd to get a call x apt-request to [facility] to check status of referral -EKG 2018 : normal from previous PCP records -microalb 05/2023 Neg -continue amlodipine 10 mg daily And valsartan/HDCTZ max dose -pt on clonidine HS -advise to Take med BID -ps home BP machine to monitor couple times a week and bring readings at next apt Assessment & Plan (05/31/2023 10:00 PM EDT): -BP elevated today and at home -referred Ophthalmology at last visit -pd to get a call x apt-request to [facility] to check status of referral -EKG 2018 : normal from previous PCP records -check microalb -increase amlodipine to 10 mg daily -ps home BP machine today to monitor couple times a week Assessment & Plan (05/01/2023 7:20 PM EDT): -BP controlled -referred Ophthalmology at last visit -pd to get a call x apt-request to [facility] to check status of referral -EKG 2018 : normal from previous PCP records -check microalb -ps home BP machine today to monitor couple times a week Assessment & Plan (03/15/2023 9:12 PM EDT): -BP controlled -referred today to ophthalmology -will do EKG x baseline at next visit if not able to obtain a recent one from her records Hx of DEEPIKA (above knee amputation), left 03/05/20 Assessment & Plan (07/25/2023 7:11 PM EDT): Per pt hx of severe Raynauds c/ b left AKA ,used crutches and wheelchair x ambulation ----pt just received this month new crutches and new wheelchair -continue ASA,plavix -pt requesting electric wheelchair -referred for PT eval Assessment & Plan (05/31/2023 10:06 PM EDT): Per pt hx of severe Raynauds c/ b left AKA ,used crutches and wheelchair x ambulation ----pt just received this month new crutches and new wheelchair -continue ASA,plavix Assessment & Plan (05/01/2023 7:11 PM EDT): Per pt hx of severe Raynauds c/ b left AKA ,used crutches and wheelchair x ambulation ----pt just received this month new crutches and new wheelchair -continue ASA,plavix -pt requesting adult diapers --did written order and gave to nurse staff Assessment & Plan (03/15/2023 9:20 PM EDT): Per pt hx of severe Raynauds c/ b left AKA ,used crutches and wheelchair x ambulation -currently using her father's wheelchair -continue ASA,plavix -routed this note to [facility] x wheelchair request and already started process x requested crutches with nurses Raynaud's disease 03/05/2023 Assessment & Plan (07/25/2023 6:58 PM EDT): Per pt hx of severe Raynauds -continue ASA,plavix ,amlodipine Assessment & Plan (05/31/2023 10:01 PM EDT): Per pt hx of severe Raynauds -continue ASA,plavix ,amlodipine Assessment & Plan (05/01/2023 7:05 PM EDT): Per pt hx of severe Raynauds -continue ASA,plavix ,amlodipine Assessment & Plan (03/15/2023 9:20 PM EDT): Per pt hx of severe Raynauds -continue ASA,plavix ,amlodipine COPD (chronic obstructive pulmonary disease) Assessment & Plan (07/25/2023 6:58 PM EDT): Reports to be controlled w current inh use -but exacerbated in the past week w respiratory infection -pt requesting to get NBZ machine -sent today written order Assessment & Plan (05/31/2023 9:59 PM EDT): Reports to be controlled w current inh use -monitor Assessment & Plan (05/01/2023 7:04 PM EDT): Reports to be controlled w current inh use -monitor Assessment & Plan (03/15/2023 9:11 PM EDT): Reports to be controlled w current inh use -monitor Acid reflux 03/05/2023 Assessment & Plan (07/25/2023 7:03 PM EDT): On chronic PPIs -from PCP records no EGD report -referred to GI --gave info of pt of letter in system x pt to call x apt Assessment & Plan (05/31/2023 10:02 PM EDT): On chronic PPIs -from PCP records no EGD report -referred to GI --gave today info of pt of letter in system x pt to call x apt Assessment & Plan (05/01/2023 7:05 PM EDT): On chronic PPIs -from PCP records no EGD report -referred today to GI Assessment & Plan (03/15/2023 9:15 PM EDT): On chronic PPIs -will try to get records of previous PCP and eval If had EGD , if not may need to consider to hold on PPIs and eval symptoms and check x h pylori if symptomatic Resolved Problems Problem Noted Date Diagnosed Date Resolved Date Diarrhea 01/14/2024 03/06/2024 Housing problems 12/31/2023 05/14/2025 Assessment & Plan (12/31/2023 2:07 PM EST): During IBH Consult Radha presenting with depressed mood, loss of interests/pleasure , changes in sleep difficulty falling asleep, change in appetite or weight reduce appetite, psychomotor agitation, trouble concentrating, fatigue/loss of energy, inappropriate guilt , difficulty concentrating and excessive worry/anxiety, difficulty controlling worry, restless/keyed up/On edge, easily fatigued, difficulty concentrating/Mind going blank , irritability, and sleep disturbance difficulty falling asleep; for a period of 18+ mo, for all symptoms in the context of , family issues, illness or family illness, recent move, and housing. Radha [place] recently [place] to [place] after her . She's currently taking care of her dad and living with him. Her children live in different states. Reports lack of communication with them and feelings of remorse. PLAN: (check all that apply) New/Additional Services needed PCP management Off-site services for BH Continue with current services (defined as services in the past 12 months) . Referral will be placed for OP individual therapy. Bereavement without complication 12/31/2023 05/14/2025 Assessment & Plan (06/24/2024 2:33 PM EDT): During IBH Consult Radha presenting with depressed mood, loss of interests/pleasure , changes in sleep difficulty falling asleep, change in appetite or weight reduce appetite, psychomotor retardation, trouble concentrating, thoughts of worthlessness or guilt, fatigue/loss of energy, inappropriate guilt , hopelessness, difficulty concentrating; for a period of 18+ mo, for all symptoms in the context of family issues, illness or family illness, and housing. Radha felt emotionally overwhelmed due to having too many different stressors. She's taking care of her father which is causing a lot of anxiety, stress and a difficult relationship with her family. She's maureen having difficulties managing anger. Discussed medication to use as PRN to decrease symptoms per patient's request. Her sleep has been an issue and causing depressive mood. During today's consult, clinician engaged patient with active, reflective listening. Reviewed and assessed for risk, current stressors and protective factors. Pt agreed to follow-up with [facility] regarding referral placed (I printed out letter w agency information). clinician will be available during next medical appt if needed. Pt will be referred to CM to assist with food insecurity. Assessment & Plan (12/31/2023 2:07 PM EST): During IBH Consult Radha presenting with depressed mood, loss of interests/pleasure , changes in sleep difficulty falling asleep, change in appetite or weight reduce appetite, psychomotor agitation, trouble concentrating, fatigue/loss of energy, inappropriate guilt , difficulty concentrating and excessive worry/anxiety, difficulty controlling worry, restless/keyed up/On edge, easily fatigued, difficulty concentrating/Mind going blank , irritability, and sleep disturbance difficulty falling asleep; for a period of 18+ mo, for all symptoms in the context of , family issues, illness or family illness, recent move, and housing. [place] recently [place] . She's currently taking care of her dad and living with him. Her children live in different states. Reports lack of communication with them and feelings of remorse. PLAN: (check all that apply) New/Additional Services needed PCP management Off-site services for Continue with current services (defined as services in the past 12 months) . Referral will be placed for OP individual therapy. Obese 05/01/2023 05/07/2024 Assessment & Plan (07/25/2023 7:09 PM EDT): Advised pt to improve diet and exercise,discussed healthy life style -referred x soldering machine feeder Assessment & Plan (05/31/2023 10:05 PM EDT): Advised pt to improve diet and exercise,discussed healthy life style -referred today x soldering machine feeder Assessment & Plan (05/01/2023 7:17 PM EDT): Advised pt to improve diet and exercise,discussed healthy life style -will discuss about soldering machine feeder referral at next visit Skin lesion 05/01/2023 07/25/2023 Assessment & Plan (05/31/2023 10:09 PM EDT): Reports chronic skin lesions in scalp and palms using chronically topical steroids saw cream beater s/p resection of skin tags but has mils surrounding erythema -mupirocin TID x 7 days Assessment & Plan (05/01/2023 7:19 PM EDT): Reports chronic skin lesions in scalp and palms using chronically topical steroids -triamcinolone -referred to cream beater today for further eval Depression 03/15/2023 03/15/2023 Moderate persistent asthma 03/05/2023 0 03/15/2023 Encounters * This document contains information received from the source organization and may not represent a complete record from that organization. Date Type Department Care Team Description 07/29/2025 Travel 07/26/2025 Refill [facility] [address] [place] [address] Mary Ellen Ortega MD 07/23/2025 Refill [facility] [address] [place] [address] Mary Ellen Ortega MD 07/06/2025 1:45 PM EDT Office Visit [facility] [address] [place] [address] Mary Ellen Ortega MD Sore throat (Primary Dx); Type 2 diabetes mellitus with other circulatory complication, with long-term current use of insulin ([facility]); Nasal congestion; Lung nodule; Hypertension, unspecified type; Health care maintenance; Severe episode of recurrent major depressive disorder, without psychotic features ([facility]/HCC); ALBERTINA (obstructive sleep apnea); Upper respiratory tract infection, unspecified type 07/06/2025 Travel 06/01/2025 Telephone [facility] [address] [place] [address] Mary Ellen Ortega MD Durable Medical Equipment 05/27/2025 Refill [facility] [address] [place] [address] Mary Ellen Rosario MD 05/27/2025 Refill [facility] [address] [place] [address] Mary Ellen Ortega MD 05/27/2025 Orders Only [facility] External Provider, [facility] 05/26/2025 Refill [facility] [address] [place] [address] Mary Ellen Rosario MD 05/26/2025 Refill [facility] [address] [place] [address] Mary Ellen Ortega MD 05/21/2025 Refill [facility] [address] [place] [address] Sommer Martinez, PharmD 05/18/2025 3:00 PM EDT Office Visit [facility] [address] [place] [address] Flavia Weber Edentulous maxilla (Primary Dx); Partially edentulous mandible, unspecified edentulism class 05/17/2025 Telephone [facility] [address] [place] [address] Mary Ellen Ortega MD Durable Medical Equipment 05/13/2025 9:00 AM EDT Office Visit [facility] [address] [place] [phone] Mary Ellen Ortega MD Type 2 diabetes mellitus with other circulatory complication, with long-term current use of insulin ([facility]) (Primary Dx); Chronic obstructive pulmonary disease, unspecified COPD type (CMS/HCC); Chronic neck pain; Chronic low back pain, unspecified back pain laterality, unspecified whether sciatica present; Heart murmur; Family history of cancer; Health care maintenance; Alkaline phosphatase raised; Annual physical exam; Hypertension, unspecified type; PAD (peripheral artery disease) (CMS/HCC); Raynaud's disease without gangrene; Abnormal uterine bleeding (AUB); Acute cystitis with hematuria; Severe episode of recurrent major depressive disorder, without psychotic features (CMS/HCC); Elevated alkaline phosphatase level; Tobacco use 05/13/2025 Travel 05/12/2025 Telephone [facility] [address] [place] [address] Mary Ellen Ortega MD Chart Prep 05/07/2025 3:00 PM EDT Office Visit [facility] [address] [place] [address] Jane Davis FNP Acute cystitis with hematuria (Primary Dx); Abnormal uterine bleeding (AUB) 05/07/2025 Travel 05/07/2025 Patient Outreach [facility] [address] [place] [address], [place] [phone] Mary Ellen Ortega MD Pre-visit Planning (SDOH was already completed. ) 05/07/2025 Refill [facility] [address] [place] [address] Sommer Martinez PharmD Type 2 diabetes mellitus with other circulatory complication, with long-term current use of insulin ([facility]) 05/06/2025 Telephone [facility] [address] [place] [address] Mary Ellen Ortega MD Results 05/03/2025 Refill [facility] [address] [place] [address] Georgette Ramsey MD from Last 3 Months Immunizations Immunization Administration Dates Next Due Hep B, adult 04/14/2024,02/14/2024,09/19/2023 Influenza injectable quadriv alent preservative free 09/19/2023 Influenza, Injectable, MDCK, preservative free 07/29/2025 Influenza, seasonal, injecta ble, preservative free 09/30/2024 Pfizer Covid-19 Vaccine 12+ 09/30/2024, Pfizer Covid-19 Vaccine 12+ Bivalent 05/01/2023 Pneumococcal Conjugate PCV 20 05/07/2024 RSV Bivalent 07/29/2025 Tdap 03/26/2023 Zoster, Recombinant 02/14/2024,03/15/2023 Family History Medical History Relation Name Comments DM2 Father Breast cancer Father's Sister DM2 Mother DM2 Sister Thyroid cancer Sister Uterine cancer Sister Relation Name Status Comments Father Father's Sister Mother Sister Social History Tobacco Use Types Packs/Day Years Used Date Smoking Tobacco: Former Passive Smoke Exposure: Past Smokeless Tobacco: Former Tobacco Cessation:Counseling Given: Not Answered Comments:Quit 19 years ago,started at 10 y until 31 y of [...] Orientation Straight 03/05/2023 2: 56 PM EDT Last Filed Vital Signs Vital Sign Reading Time Taken Comments Blood Pressure 112/60 07/06/2025 2:14 PM EDT Pulse 90 07/06/2025 2:14 PM EDT Temperature 36.7 C (98.1 F) 07/06/2025 2:14 PM EDT Respiratory Rate 20 07/06/2025 2:14 PM EDT Oxygen Saturation 95% 05/07/2025 2:41 PM EDT Inhaled Oxygen Concentration - - Weight 71.7 kg (158 lb) 07/06/2025 2:14 PM EDT Height 172.7 cm (5' 8 ) 07/06/2025 2:14 PM EDT Body Mass Index 24.02 07/06/2025 2:14 PM EDT Plan of Treatment Upcoming Encounters Date Type Department Care Team (Late st Contact Info) Description 08/16/2025 10:00 AM EDT Medication Management [facility] [address] [place] [address] Sommer Martinez, PharmD [address] [place] [address] Health Maintenance Due Date Last Done Comments CT Colonography 1968 Colonoscopy 1968 Colorectal Cancer Screening 1968 Dental X-Ray: Bitewings 1968 Dental X-Ray: Full Mouth 1968 FIT DNA/Cologuard 1968 FIT 1968 FOBT 1968 Sigmoidoscopy 1968 Diabetes: Foot Exam 10/23/2024 10/23/2023 Mammogram 03/14/2025 09/14/2024, 02/10, 08/21/2023, Additional history exists Lipid Panel 05/04/2025 05/04/2024, 07/12, 03/08/2023 Diabetes: Urine Protein Screening 05/07/2025 05/07/2024, 07/22/2023 Diabetes: Hemoglobin A1C 08/13/2025 025, 02/11/2025, 05/04/2024, Additional history exists Depression Monitoring 11/13/2025 05/13/2025, 025 Dental Oral Exam 11/19/2025 05/18/2025, 05/2025, 04/07/2024 Dental Prophylaxis 11/19/2025 05/18/2025, 0 11/17/2024, 06/16/2024 Alcohol/Substance Use Screening 02/22/2026 02/22/2025 SDOH Screening 02/22/2026 02/22/2025 Disability Screening 05/13/2026 05/13/2025 Tobacco Screening 05/18/2026 05/18/2025 Eye Exam 03/15/2027 03/15/2025, 05/0 03/2025, 03/15/2025, Additional history exists Cervical Cancer Screening 04/07/2029 HPV/Cotest 04/07/2029 04/07/2024 Pap Smear 04/07/2029 04/07/2024 DTaP/Tdap/Td Vaccines (2 - Td or Tdap) 03/26/2033 03/26/2023 HIV Screening Completed 03/08/2023 Hepatitis C Screening Completed 03/08/2023 Zoster Vaccines Completed 02/14/2024, 03/15/2023 Hepatitis B Vaccines Completed 04/14/2024, 02/14/2024, 09/19/2023 Pneumococcal Vaccine: 50+ Years Completed 05/07/2024 COVID-19 Vaccine Completed 09/30/2024, , 05/01/2023 Influenza Vaccine Completed 07/29/2025, , 09/19/2023 RSV Patients and Patients Aged 60 years or older Completed 07/29/2025 HIB Vaccines Aged Out No longer eligi ble based on patient's age to complete this topic HPV Vaccines Aged Out No longer eligi ble based on patient's age to complete this topic Hepatitis A Vaccines Aged Out No long er eligible based on patient's age to complete this topic IPV Vaccines Aged Out No longer eligi ble based on patient's age to complete this topic Meningococcal B Vaccine Aged Out No l onger eligible based on patient's age to complete this topic Meningococcal Vaccine Aged Out No hector paz eligible based on patient's age to complete this topic RSV under 20 months Aged Out No longe r eligible based on patient's age to complete this topic Rotavirus Vaccines Aged Out No longer eligible based on patient's age to complete this topic Procedures Procedure Name Priority Date/Time Associated Diagnosis Comments CT LUMBAR SPINE WO CONTRAST Routine 08/03/2025 9:29 AM EDT POCT INFLUENZA A (ID NOW RAPID MOLECULAR) Routine 07/06/2025 2:25 PM EDT Nasal congestion POCT INFLUENZA B (ID NOW RAPID MOLECULAR) Routine 07/06/2025 2:25 PM EDT Nasal congestion POCT RAPID COVID ANTIGEN Routine 07/06/2025 2:25 PM EDT Nasal congestion POCT GLUCOSE Routine 07/06/2025 2:16 PM EDT Type 2 diabetes mellitus with other circulatory complication, with long-term current use of insulin ([facility]) XR CERVICAL SPINE 4V Routine 05/27/2025 10:10 AM EDT XR LUMBAR SPINE COMPLETE 4+ VIEWS Routine 05/27/2025 10:10 AM EDT PERIODIC ORAL EVALUATION - ESTABLISHED PATIENT Routine 05/18/2025 3:00 PM EDT CASE PRESENTATION, DETAILED AND EXTENSIVE TREATMENT PLANNING Routine 05/18/2025 3:00 PM EDT PROPHYLAXIS - ADULT Routine 05/18/2025 3 :00 PM EDT POCT GLYCATED HEMOGLOBIN, TOTAL Routine 05/13/2025 9:22 AM EDT Type 2 diabetes mellitus with other circulatory complication, with long-term current use of insulin ([facility]) POCT GLUCOSE Routine 05/13/2025 9:22 AM EDT Type 2 diabetes mellitus with other circulatory complication, with long-term current use of insulin ([facility]) POCT URINALYSIS DIPSTICK Routine 05/07/2025 3:22 PM EDT Acute cystitis with hematuria CULTURE, URINE, ROUTINE Routine 05/07/2025 12:00 AM EDT Acute cystitis with hematuria BI MAMMOGRAM DIAGNOSTIC TOMOSYNTHESIS BILATERAL Routine 09/14/2024 11:00 AM EST ALBUMIN, RANDOM URINE W/CREATININE Routine 05/07/2024 3:30 PM EDT LIPID PANEL, STANDARD Routine 05/04/2024 9:51 AM EDT Type 2 diabetes mellitus with other circulatory complication, with long-term current use of insulin (CMS/HCC) HPV MRNA E6/E7 REFLEX TO HPV 16, 18/45 Routine 04/07/2024 9:47 AM EDT PAP SMEAR Routine 04/07/2024 9:47 AM EDT Routine cervical smear HEPATITIS C AB W/REFL TO HCV RNA, QN, PCR Routine 03/08/2023 9:31 AM EDT Routine screening for STI (sexually transmitted infection) HIV 1/2 ANTIGEN/ANTIBODY, FOURTH GENERATION W/RFL Routine 03/08/2023 9:31 AM EDT Routine screening for STI (sexually transmitted infection) from Last 3 Months or Most Recently Relevant to Health Maintenance Results * CT Lumbar Spine w/o Contrast (08/03/2025 9:29 AM EDT) Anatomical Region Laterality Modality Spine, L-spine Computed Tomogra phy 08/03/2025 9:29 AM EDT Narrative 08/03/2025 10:04 AM EDT [place] [id number] CT Scan Report Signed Patient: Jose J LuxRadha#: [id number] : 1970 Acct:[id number] Age/Sex: 54 / F ADM Date: 08/03/25 Loc: [facility] Attending Dr: Mary Ellen Orellana MD Ordering Physician: Nhi Wisdom Date of Service: 08/03/25 Procedure(s): CT lumbar spine wo IV con Accession Number(s): [id number] cc: Nhi WisdomP; Mary Ellen Ortega MD Report Number: [id number]: Total DLP = 690.00 mGy-cm Reason for Exam: M47.816 - Spondylosis without myelopathy or radiculopathy, lumbar region EXAM: CT lumbar spine without IV contrast TECHNIQUE: Axial imaging was performed from mid T11 through the lower sacrum coccygeal region without IV contrast. Coronal and sagittal reformatted images were generated from the original axial data set. ALARA: The examination used one or more of the following radiation dose reduction techniques: Automated exposure control, iterative reconstruction, and/or adjustment of mA and/or kV. INDICATION: M47.816 - Spondylosis without myelopathy or radiculopathy, PRIOR: X-ray on May 27, 2025 FINDINGS: There is a benign simple renal cyst involving superior pole the right kidney there are 2 stones measuring 2 mm in the right kidney not causing obstruction. There is also likely a small nonobstructing stone in the left kidney 1-2 mm. Moderate atherosclerotic calcifications are present. There are 5 [id number] lumbar segments. T12-L1: There is no disc bulge, herniation, spinal stenosis, or foraminal narrowing. L1-L2: There is mild loss disc height and circumferential broad-based disc bulge with mild facet degeneration not resulting in spinal stenosis or foraminal narrowing. L2-L3: There is mild broad-based disc bulge and ligamentum flavum thickening. There is mild facet degeneration. There is no spinal stenosis or foraminal narrowing. L3-L4: There is mild loss of disc height with endplate sclerosis, osteophytes, and vacuum phenomena. There is circumferential broad-based disc bulge. There is moderate to severe facet degeneration. Right hemilaminectomy has been performed. There is no gross spinal stenosis or foraminal narrowing. L4-L5: Posterior pedicle screws are in place. Posterior laminectomy has been performed. There is interbody spacer. There is mild right and moderate left foraminal narrowing. Spinal canal is not well-demonstrated. L5-S1: Posterior pedicle screws and rods fix level. Posterior laminectomy has been performed. There is interbody bone graft that shows ingrowth into the endplates of L5 and S1. There is no definite foraminal narrowing. Spinal canal is not well demonstrated but there is no gross spinal stenosis. CT/CT lumbar spine wo IV con IMPRESSION: Multilevel degenerative changes as outlined above. L3-L4: Right hemilaminectomy has been performed. There is no gross spinal stenosis or foraminal narrowing. PLIF L4, L5, and S1 with interbody spacer at L4-5 and graft at L5-S1. A laminectomy has also been performed. This level is. Electronically signed by: Sebastián Silva MD 08/03/2025 10:01 AM EDT RP Dictated By: Sebastián Silva MD Signed By: <Electronically signed by Sebastián Silva MD in OV> 08/03/25 1001 DD/ 8 TD/TT: 08/03/25941 Bunker Worker: Procedure Note Donotuseinterpreter, Image - 08/03/[address] [place] [address] [address] Scan Report Signed Patient: Adeola Nguyen R#: [id number] : 1970Acct:[id number] Age/Sex: 54 / FADM Date: 08/03/25 Loc: HO.CARD Attending Dr: Mary Ellen Orellana MD Ordering Physician: Nhi Wisdom Date of Service: 08/03/25 Procedure(s): CT lumbar spine wo IV con Accession Number(s): [id number] cc: Nhi Wisdom; Mary Ellen Ortega MD Report Number: [id number]: Total DLP = 690.00 mGy-cm Reason for Exam: 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 Coronal and sagittal reformatted images were generated from the original axial data set. ALARA: The examination used one or more of the following radiation dose reduction techniques: Automated exposure control, iterative reconstruction, and/or adjustment of mA and/or kV. INDICATION: M47.816 - Spondylosis without myelopathy or radiculopathy, PRIOR: X-ray on May 27, 2025 FINDINGS: There is a benign simple renal cyst involving superior pole the right kidney there are 2 stones measuring 2 mm in the right kidney not causing obstruction. There is also likely a small nonobstructing stone in the left kidney 1-2 mm. Moderate atherosclerotic calcifications are present. There are 5 [id number] lumbar segments. T12-L1: There is no disc bulge, herniation, spinal stenosis, or foraminal narrowing. L1-L2: There is mild loss disc height and circumferential broad-based disc bulge with mild facet degeneration not resulting in spinal stenosis or foraminal narrowing. L2-L3: There is mild broad-based disc bulge and ligamentum flavum thickening. There is mild facet degeneration. There is no spinal stenosis or foraminal narrowing. L3-L4: There is mild loss of disc height with endplate sclerosis, osteophytes, and vacuum phenomena. There is circumferential broad-based disc bulge. There is moderate to severe facet degeneration. Right hemilaminectomy has been performed. There is no gross spinal stenosis or foraminal narrowing. L4-L5: Posterior pedicle screws are in place. Posterior laminectomy has been performed. There is interbody spacer. There is mild right and moderate left foraminal narrowing. Spinal canal is not well-demonstrated. L5-S1: Posterior pedicle screws and rods fix level. Posterior laminectomy has been performed. There is interbody bone graft that shows ingrowth into the endplates of L5 and S1. There is no definite foraminal narrowing. Spinal canal is not well demonstrated but there is no gross spinal stenosis. CT/CT lumbar spine wo IV con IMPRESSION: Multilevel degenerative changes as outlined above. L3-L4: Right hemilaminectomy has been performed. There is no gross spinal stenosis or foraminal narrowing. PLIF L4, L5, and S1 with interbody spacer at L4-5 and graft at L5-S1. A laminectomy has also been performed. This level is. Electronically signed by: Sebastián Silva MD 08/03/2025 10:01 AM EDT Dictated By: Sebastián Silva MD Signed By: <Electronically signed by Sebastián Silva MD in OV> 08/03/25 1001 DD/ 0929 TD/TT: 08/03/25 0942 Bunker Worker: Result [facility] External Provider IMG CT PROCEDURES Final Result * POCT Rapid Influenza B BADILLO ID NOW (07/06/2025 2:25 PM EDT) [facility] Influenza B Negative Negative, Indeterminate [facility] Swab 07/06/2025 2:25 PM EDT Result [facility] Mary Ellen Orellana MD POINT OF CARE ANDRÉS T ENTER/EDIT ORDERABLES Final Result Performing Organization Address City/[facility]/ZIP Co de Phone Number [facility] [address] [place] [phone] * POCT Rapid Influenza A BADILLO ID NOW (07/06/2025 2:25 PM EDT) [facility] Influenza A Negative Negative, Indeterminate [facility] Swab 07/06/2025 2:25 PM EDT Result [facility] Mary Ellen Orellana MD POINT OF CARE ANDRÉS T ENTER/EDIT ORDERABLES Final Result Performing Organization Address City/[facility]/ZIP Co de Phone Number [facility] [address] [place] [phone] * POCT Rapid Covid-19 BinaxNOW (07/06/2025 2:25 PM EDT) [facility] Rapid COVID Ag Negative Swab 07/06/2025 2:25 PM EDT Result [facility] Mary Ellen Orellana MD POINT OF CARE ANDRÉS T ENTER/EDIT ORDERABLES Final Result * POCT Glucose (07/06/2025 2:16 PM EDT) Only the most recent of2 resultswithin the time period is included. Glucose Blood, POC 122 60 - 200 mg/dL Blood Capillary blood specimen / Unknown 07/06/2025 2:16 PM EDT Mary Ellen Orellana MD POINT OF CARE ANDRÉS T ENTER/EDIT ORDERABLES Final Result * XR CERVICAL SPINE 4V (05/27/2025 10:10 AM EDT) Anatomical Region Laterality Modality Abdomen Radiographic Emmy ging 05/27/2025 10:1 0 AM EDT Narrative 05/27/2025 10:54 AM EDT [place] [address] XRay Report Signed Patient: Radha Nguyen#: [id number] : 1970 Acct:[id number] Age/Sex: 54 / F ADM Date: 05/27/25 Loc: EMMY Attending Dr: Nhi YANEZ Ordering Physician: Nhi Wisdom Date of Service: 05/27/25 Procedure(s): XR cervical spine 4V Accession Number(s): [id number] cc: Nhi Wisdom; Mary Ellen Ortega MD EXAMINATION: XR CERVICAL SPINE CLINICAL INFORMATION: M47.812 - Spondylosis without myelopathy or radiculopathy, cervical region COMPARISON: May 06, 2023 TECHNIQUE: AP, AP odontoid, bilateral oblique, lateral, and swimmer's spine FINDINGS: There is straightening of the cervical lordosis. There is no prevertebral soft tissue swelling. There is mild to moderate narrowing of the neural foramina at C3-4 by osteophytes, right greater than left. XR/XR cervical spine 4V IMPRESSION: There is straightening of the expected cervical lordosis. This can be idiopathic, but can also be related to degenerative change, muscle spasm, or posterior soft tissue injury. Mild to moderate right greater than left neural foraminal narrowing at C3-4 by osteophytes. Electronically signed by: Sebastián Silva MD 05/27/2025 10:51 AM EDT RP Dictated By: Sebastián Silva MD Signed By: <Electronically signed by Sebastián Silva MD in OV> 05/27/25 1051 DD/ 1010 TD/TT: 05/27/25 1037 Bunker Worker: Procedure Note Donotuseinterpreter, Image - 05/27/[address] [address] XRay Report Signed Patient: Adeola Nguyen R#: [id number] : 1970Acct:[id number] Age/Sex: 54 / FADM Date: 05/27/25 Loc: EMMY Attending Dr: Nhi YANEZ Ordering Physician: Nhi Wisdom Date of Service: 05/27/25 Procedure(s): XR cervical spine 4V Accession Number(s): [id number] cc: Nhi Wisdom; Mary Ellen Ortega MD EXAMINATION: XR CERVICAL SPINE CLINICAL INFORMATION: M47.812 - Spondylosis without myelopathy or radiculopathy, cervical region COMPARISON: May 06, 2023 TECHNIQUE: AP, AP odontoid, bilateral oblique, lateral, and swimmer's spine FINDINGS: There is straightening of the cervical lordosis. There is no prevertebral soft tissue swelling. There is mild to moderate narrowing of the neural foramina at C3-4 by osteophytes, right greater than left. XR/XR cervical spine 4V IMPRESSION: There is straightening of the expected cervical lordosis. This can be idiopathic, but can also be related to degenerative change, muscle spasm, or posterior soft tissue injury. Mild to moderate right greater than left neural foraminal narrowing at C3-4 by osteophytes. Electronically signed by: Sebastián Silva MD 05/27/2025 10:51 AM EDT RP Dictated By: Sebastián Silva MD Signed By: <Electronically signed by Sebastián Silva MD in OV> 05/27/25 1051 DD/ 1010 TD/TT: 05/27/25 1037 Bunker Worker: us [facility] External Provider IMG XR PROCEDURES Edited Result - Final * XR Lumbar Spine Complete 4+ Views (05/27/2025 10:10 AM EDT) Anatomical Region Laterality Modality Spine, L-spine Radiographic Emmy ging 05/27/2025 10:1 0 AM EDT Narrative 05/27/2025 10:51 AM EDT [address] [address] XRay Report Signed Patient: Radha Nguyen#: [id number] : 1970 Acct:[id number] Age/Sex: 54 / F ADM Date: 05/27/25 Loc: EMMY Attending Dr: Nhi YANEZ Ordering Physician: Nhi Wisdom Date of Service: 05/27/25 Procedure(s): XR lumbar spine 4V min Accession Number(s): [id number] cc: Nhi Wisdom; Mary Ellen Ortega MD FINDINGS: Exam: Five-view lumbar spine TECHNIQUE: AP, lateral, lateral spot, bilateral oblique x-rays of the lumbar spine INDICATION: M47.816 - Spondylosis without myelopathy or radiculopathy, lumbar region Prior: May 06, 2023 FINDINGS: A generator projects over the left gluteal region. Wires extend above the field of view of the x-ray. Right upper quadrant clips are likely from prior cholecystectomy. There are surgical clips anterior to L5-L6. The right SI joint is sclerotic on both sides of the joint and slightly irregular. It appears stable. There are 6 lumbar segments. Vertebral body height and alignment is preserved. Posterior pedicle screws are present at L5, L6, and S1. There is nearby spacer at L5-L6. T12-L1: Unremarkable L1-L2: Unremarkable L2-L3: There is mild disc space narrowing, increased since the prior L3-L4: There is subtle retrolisthesis and mild disc space narrowing with small anterior osteophytes, slightly increased since prior. L4-L5: There is moderate disc space narrowing with anterior endplate sclerosis and osteophytes. There is facet sclerosis and osteophytes. L5-L6: Posterior fusion and interbody spacer. Spacer subsidence is stable. L6-S1: Level is fused posteriorly. There is bone graft bridging the facets and interbody space. Stable XR/XR lumbar spine 4V min IMPRESSION: PLIF L5-L6-S1 with L5-L6 interbody spacer. Stable. Electronically signed by: Sebastián Silva MD 05/27/2025 10:48 AM EDT Dictated By: Sebastián Silva MD Signed By: <Electronically signed by Sebastián Silva MD in OV> 05/27/25 1048 DD/ 1010 TD/TT: 05/27/25 1037 Bunker Worker: Procedure Note Donotuseinterpreter, Image - 05/27/2025 [place] [address] XRay Report Signed Patient: Adeola Nguyen R#: [id number] : 1970Acct:[id number] Age/Sex: 54 / FADM Date: 05/27/25 Loc: EMMY Attending Dr: Nhi YANEZ Ordering Physician: Nhi Wisdom Date of Service: 05/27/25 Procedure(s): XR lumbar spine 4V min Accession Number(s): [id number] cc: Nhi Wisdom; Mary Ellen Ortega MD FINDINGS: Exam: Five-view lumbar spine TECHNIQUE: AP, lateral, lateral spot, bilateral oblique x-rays of the lumbar spine INDICATION: M47.816 - Spondylosis without myelopathy or radiculopathy, lumbar region Prior: May 06, 2023 FINDINGS: A generator projects over the left gluteal region. Wires extend above the field of view of the x-ray. Right upper quadrant clips are likely from prior cholecystectomy. There are surgical clips anterior to L5-L6. The right SI joint is sclerotic on both sides of the joint and slightly irregular. It appears stable. There are 6 lumbar segments. Vertebral body height and alignment is preserved. Posterior pedicle screws are present at L5, L6, and S1. There is nearby spacer at L5-L6. T12-L1: Unremarkable L1-L2: Unremarkable L2-L3: There is mild disc space narrowing, increased since the prior L3-L4: There is subtle retrolisthesis and mild disc space narrowing with small anterior osteophytes, slightly increased since prior. L4-L5: There is moderate disc space narrowing with anterior endplate sclerosis and osteophytes. There is facet sclerosis and osteophytes. L5-L6: Posterior fusion and interbody spacer. Spacer subsidence is stable. L6-S1: Level is fused posteriorly. There is bone graft bridging the facets and interbody space. Stable XR/XR lumbar spine 4V min IMPRESSION: PLIF L5-L6-S1 with L5-L6 interbody spacer. Stable. Electronically signed by: Sebastián Silva MD 05/27/2025 10:48 AM EDT RP Dictated By: Sebastián Silva MD Signed By: <Electronically signed by Sebastián Silva MD in OV> 05/27/25 1048 DD/ 1010 TD/TT: 05/27/25 1037 Bunker Worker: [facility] External Provider IMG XR PROCEDURES Edited Result - Final * (ABNORMAL) POCT HGB A1C (05/13/2025 9:22 AM EDT) Hemoglobin A1C 7.6(A) 4.0 - 5.7 % QC Media Lot # [id number] Lot# Expiration Date Blood 05/13/2025 9:22 AM EDT Mary Ellen Orellana MD POINT OF CARE ANDRÉS T ENTER/EDIT ORDERABLES Final Result * POCT Urinalysis (05/07/2025 3:22 PM EDT) Color, UA Yellow Clarity, UA Clear Glucose, UA 3+ 500+++ Bilirubin, UA Negative Ketones, UA Positive Comment:trace Spec Grav, UA 1.015 Blood, UA Negative Negative, None Detected pH, UA 6.5 Protein, UA Negative Urobilinogen, UA 0.2 Leukocytes, UA Trace Negative, Rare, Trace Comment:small Nitrite, UA Negative Negative, None Detected Appearance, UA clear QC Media Lot # [id number] Lot# Expiration Date 82 Urine 05/07/2025 3:22 PM EDT [facility]INT OF [facility]ARE TEST ENTER/EDIT ORDERABLES Final Result * Urine Culture Routine (05/07/2025 12:00 AM EDT) Urine Urine specimen obtained by clean catch procedure / Unknown 05/07/2025 05/07/2025 Comment:UACC Narrative [facility] - 05/09/2025 8:17 AM EDT Escherichia coli Quant 50,000 to 100,000 cfu/mL Escherichia coli: Ampicillin >=32(R) Escherichia coli: Cefazolin (Urine) 4(S) Escherichia coli: Cefepime <=0.12(S) Escherichia coli: Ceftriaxone <=0.25(S) Escherichia coli: Ciprofloxacin 0.5(I) Escherichia coli: Gentamicin <=1(S) Escherichia coli: Nitrofurantoin <=16(S) Escherichia coli: Trimethoprim/Sulfamethoxazole >=320(R) Specimen Source: Urine clean catch [facility] MICROBIOLOGY - GENERAL ORD ERABLES Final Result Performing Organization Address City/State/[facility] Co de Phone Number [facility] [address] [place] [phone] * BI Mammogram Diagnostic Tomosynthesis Bilateral (09/14/2024 11:00 AM EST) Anatomical Region Laterality Modality Breast Bilateral Mammography 09/14/2024 11:0 0 AM EST Narrative 09/14/2024 12:16 PM EST [facility] [address] [place] [address] Mammography Report Signed Patient: Radha Nguyen#: [id number] : 1970 Acct:[id number] Age/Sex: 54 / F ADM Date: 09/14/24 Loc: HO.MAMMO Attending Dr: Mary Ellen Orellana MD Ordering Physician: Mary Ellen Ortega MD Re sults: 2Benign Findings Date of Service: 09/14/24 Follow Up: 1 Year From Orig ina Mammogram Procedure(s): MM tomosynthesis diagnostic BI Accession Number(s): [id number] cc: Mary Ellen Ortega MD EXAMINATION: MM DIAGNOSTIC DIGITAL BREAST TOMOSYNTHESIS, BILATERAL CLINICAL INFORMATION: Six-month follow-up for left breast calcifications upper outer quadrant, middle one third, probably benign in morphology. Patient also due for yearly. COMPARISON: Mammography: 03/09/2024, 08/21/2023, 07/10/2023 (BI-RADS 0). TECHNIQUE: Digital breast tomosynthesis is performed in both the craniocaudal and mediolateral oblique views along with computer-aided detection (CAD). Synthesized 2D images are generated from the tomosynthesis. In addition to standard views, 2-D spot magnification left CC and ML views were obtained. FINDINGS: There are scattered areas of fibroglandular density (ACR BI-RADS breast composition Category b). 4 grouped calcifications in the upper outer quadrant left breast, middle one third, remain unchanged in number and morphology . No aggressive changes. These have remained stable over a year, do not meet biopsy threshold, and given lack of interval change are benign. No further follow-up recommended. Otherwise, there are no suspicious masses, developing suspicious grouped calcifications, or areas of architectural distortion in either breast. The parenchymal pattern is stable from prior exams. There is no skin or axillary abnormality. MM/MM tomosynthesis diagnostic BI IMPRESSION: -Grouped calcifications upper outer quadrant left breast are benign. No further follow-up recommended. -There are no findings suspicious for malignancy in either breast. -Recommend the patient return to routine annual screening in one year. ASSESSMENT: BI-RADS BI-RADS 2 - Benign Findings RECOMMENDATION: 1 year F/U Results were provided to the patient at time of visit by the technologist. This patient's information was entered into a reminder system with a target due date for their next mammogram. Electronically signed by: Andreas Wall MD 09/14/2024 12:13 PM [facility] [place] Dictated By: Andreas Wall MD Signed By: <Electronically signed by Andreas Wall MD in OV> 09/14/24 1213 DD/ 1100 TD/TT: 09/14/24 1137 Bunker Worker: Procedure Note Donotuseinterpreter, Image - 09/14/2024 [facility] [address] [place] [address] Mammography Report Signed Patient: Adeola Nguyen R#: [id number] : 1970Acct:[id number] Age/Sex: 54 / FADM Date: 09/14/24 Loc: HO.MAMMO Attending Dr: Mary Ellen Orellana MD Ordering Physician: Mary Ellen Ortega sults: 2Benign Findings Date of Service: 09/14/24Follow Up: 1 Year From Orig inal Mammogram Procedure(s): MM tomosynthesis diagnostic BI Accession Number(s): [id number] cc: Mary Ellen Ortega MD EXAMINATION: MM DIAGNOSTIC DIGITAL BREAST TOMOSYNTHESIS, BILATERAL CLINICAL INFORMATION: Six-month follow-up for left breast calcifications upper outer quadrant, middle one third, probably benign in morphology. Patient also due for yearly. COMPARISON: Mammography: 03/09/2024, 08/21/2023, 07/10/2023 (BI-RADS 0). TECHNIQUE: Digital breast tomosynthesis is performed in both the craniocaudal and mediolateral oblique views along with computer-aided detection (CAD). Synthesized 2D images are generated from the tomosynthesis. In addition to standard views, 2-D spot magnification left CC and ML views were obtained. FINDINGS: There are scattered areas of fibroglandular density (ACR BI-RADS breast composition Category b). 4 grouped calcifications in the upper outer quadrant left breast, middle one third, remain unchanged in number and morphology . No aggressive changes. These have remained stable over a year, do not meet biopsy threshold, and given lack of interval change are benign. No further follow-up recommended. Otherwise, there are no suspicious masses, developing suspicious grouped calcifications, or areas of architectural distortion in either breast. The parenchymal pattern is stable from prior exams. There is no skin or axillary abnormality. MM/MM tomosynthesis diagnostic BI IMPRESSION: -Grouped calcifications upper outer quadrant left breast are benign. No further follow-up recommended. -There are no findings suspicious for malignancy in either breast. -Recommend the patient return to routine annual screening in one year. ASSESSMENT: BI-RADS BI-RADS 2 - Benign Findings RECOMMENDATION: 1 year F/U Results were provided to the patient at time of visit by the technologist. This patient's information was entered into a reminder system with a target due date for their next mammogram. Electronically signed by: Andreas Wall MD 09/14/2024 12:13 PM [facility] [place] Dictated By: Andreas Wall MD Signed By: <Electronically signed by Andreas Wall MD in OV> 09/14/24 1213 DD/ 1100 TD/TT: 09/14/24 1137 Bunker Worker: us Mary Ellen Orellana MD IMG BI PROCEDURES Edited Result - Final * Albumin, Random Urine W/Creatinine (05/07/2024 3:30 PM EDT) Creatinine, Urine 298.37 mg/dL [facility] Microalbumin Urine 41.0 mg/L [facility] Microalbum Creatinine Ratio Ur 13.7 <30 ug/mg cr [facility] Comment:Albumin/Creatinine R atio Reference Ranges: Normal: < 30 ug/mg creatinine Microalbuminuria: 30 - 300 ug/mg creatinineClinical Albuminuria: > 300 ug/mg creatinine 05/07/2024 3:30 PM EDT 05/07/2024 6:15 PM EDT Mary Ellen Orellana MD LAB URINE ORDERAB LES Final Result [facility] [address] [place] [phone] * (ABNORMAL) Lipid Panel, Standard (05/04/2024 9:51 AM EDT) Triglycerides 230(H) <150 mg/dL [facility] Comment:Desirable Triglyceri de: less than 150 mg/dLBorderline High Triglyceride 150-199 mg/dLHigh Triglyceride: 200-499 mg/dLVery High Triglyceride: greater than or equal to 5OO mg/dL Cholesterol 142 <200 mg/dL [facility] Comment:Desirable Cholestero l: less than 200 mg/dLBorderline High Cholesterol: 200-239 mg/dLHigh Cholesterol: greater than 239 mg/dL LDL Cholesterol Calculated 60 <100 mg/dL [facility] Comment:Desirable LDL: less than 100 mg/dLNear Optimal/Above Optimal LDL: 110- 129 mg/dLBorderline High LDL: 130-159 mg/dLHigh LDL: 160-189 mg/dLVery High LDL: greater than or equal to 190 mg/dL HDL Cholesterol 36(L) >40 mg/dL [facility] Comment:Desirable HDL: great er than 40 mg/dL Note: This HDL assay may give artificially low results in patients with liver disease. Blood Venous blood specimen / Unknown 05/04/2024 9:51 AM EDT 05/04/2024 12:13 PM EDT us Mary Ellen Orellana MD LAB BLOOD ORDERAB LES Final Result [facility] [address] [place] [phone] * HPV mRNA E6/E7 w/Reflex to HPV Genotypes 16, 18/45 (04/07/2024 9:47 AM EDT) HPV nRNA E6/E7 Not Detected Not Detected [facility] Comment:Methodology: Transcr iption-Mediated AmplificationThis assay detects E6/E7 viral messenger RNA (mRNA) from 14high-risk HPV types (16,18,31,33,35,39,45,51,52,56,58,59,66,68).Cervical sources are required for HPV testing.If a vaginal source from a patient who has had atotal hysterectomy with removal of cervix wassubmitted, please contact the testing laboratoryfor alternative testing options.For additional information, please refer [email or web address]/faq/GRH009a7(This link if provided for information/educational purposes only.)THIS TEST WAS PERFORMED AT:[employer] [place] [phone] BAE MD HPV mRNA E6/E7 TNP [facility] HPV 16 RNA TNP [facility] HPV 18/45 RNA [facility] 04/07/2024 9:47 AM EDT 04/08/2024 10:30 AM EDT Mary Ellen Orellana MD LAB CYTOLOGY HOMA FLOYD Final Result [facility] [address] [place] [phone] * Pap Smear (04/07/2024 9:47 AM EDT) Swab Cervix uteri structure / Unknown 04/07/2024 9:47 AM EDT 04/08/2024 10:30 AM EDT Narrative [facility] - 04/29/2024 9:28 PM EDT ----- ------- Name: Radha Nguyen Age/Sex: 53/F : 1970 Unit#: [id number] Attend Dr: Mary Ellen Ortega MD Re04/07/24 Status: DEP REF Location: [facility] Disch: ----- ------- SPEC : [id number] RECD: 04/08/24 STATUS: [facility] NUM: [id number] ANAID: 04/07/24 [facility] DR: CARLTON ALEGRIA Martha ENTERED: 04/08/24 SP TYPE: Pap Smr OT DR: ORDERED: Pap Smear THIS IS A CORRECTED REPORT 04/29/24 This is a corrected report. Any previous versions are stored internally and are available if necessary. Interpretation Satisfactory for evaluation. Negative for intraepithelial lesion or malignancy. Mild inflammation. HPV mRNA E6/E7: NOT DETECTED This assay detects E6/E7 viral messenger RNA (mRNA) from 14 high-risk HPV types (16, 18, 31, 33, 35, 39, 45, 51, 52, 56, 58, 59, 66, 68) HPV testing performed by [facility], [place], [place]. See reference laboratory portion of the EMR for entire report. Note: 04/29 This case is corrected. The results for HPV 16/18/45 are deleted because they were not performed. Final diagnosis remains the same. Clinical Information LMP: Postmenopausal Previous PAP test: Postmenopausal bleeding, Unknown findings Material Received ThinPrep-Cervical ----- ------- Signed (signature on file) Natalia Luke MD 04/29/242127 ----- ------- END OF REPORT Carlton Olman [facility] CYTOLOGY ORDERABLES F inal Result Performing Organization Address City/[facility]/ZIP Co de Phone Number [facility] [address] [place] [phone] * Hepatitis C Antibody with Reflex to HCV, RNA, Quantitative, Real-Time PCR (03/08/2023 9:31 AM EDT) [facility] Hepatitis C Antibody NON-REACT SVETLANA NON-REACT SVETLANA [facility] Index 0.07 <1.00 [facility] Comment: HCV antibody was non-reactive. There is no laboratory evidence of HCV infection. In most cases, no further action is required. However, if recent HCV exposure is suspected, a test for HCV RNA (test code 05123) is suggested. For additional information please refer to http://education.GooseChase/faq/MRJ40q3 (This link is being provided for informational/ educational purposes only.) Blood Venous blood specimen / Unknown 03/08/2023 9:31 AM EDT 03/08/2023 9:32 AM EDT Narrative [facility] - 03/08/2023 8:49 PM EDT FASTING:YES FASTING: YES Michelle Gould MD LAB BLOOD ORDERABLES Final Result Performing Organization Address City/[facility]/ZIP Co de Phone Number [facility] [address], [place] [address] [facility] [address] [place] [phone] * HIV-1/2 Antigen and Antibodies, Fourth Generation, with Reflexes (03/08/2023 9:31 AM EDT) HIV Antigen/Antibody, 4th Generation NON-REAC TIVE NON-REAC TIVE [facility] Comment: HIV-1 antigen and HIV-1/HIV-2 antibodies were not detected. There is no laboratory evidence of HIV infection. PLEASE NOTE: This information has been disclosed to you from records whose confidentiality may be protected by state law. If your state requires such protection, then the state law prohibits you from making any further disclosure of the information without the specific written consent of the person to whom it pertains, or as otherwise permitted by law. A general authorization for the release of medical or other information is NOT sufficient for this purpose. For additional information please refer to http://education.WaveDeck.Goumin.com/faq/HVG122 (This link is being provided for informational/ educational purposes only.) The performance of this assay has not been clinically validated in patients less than 2 years old. Blood Venous blood specimen / Unknown 03/08/2023 9:31 AM EDT 03/08/2023 9:32 AM EDT Narrative [facility] - 03/08/2023 8:49 PM EDT FASTING:YES FASTING: YES Michelle Gould MD LAB BLOOD ORDERABLES Final Result [facility] [address], [place] [address] [facility] [address] [place] [address] from Last 3 Months or Most Recently Relevant to Health Maintenance Insurance [facility] C3 DENTAL-[facility] MEDICAID STAND ADULT Care Teams Director Investment Banking Relationship Specialty Start Date End Date Mary Ellen Ortega MD [address] [place] [address] PCP - General Internal Medicine 03/15/23 Sommer Martinez PharmD [address] [place] [phone] Pharmacist Internal Medicine 09/30/24
--- OUTSIDE RECORDS SUMMARY | 2025-08-03 11:12 | XMS_ITS | Encounter Summary ---
Author Organization [employer] Address [address] [place] [address] 7t [place] [address] Care Team Providers Care County Judge Name Role Phone Mary Ellen Ortega MD Primary Care Pro vider Sommer Martinez PharmD Unavailable [phone] Reason for Visit * Reason Comments Med Refill Encounter Details Date Type Department Care Team ([facility] st Contact Info) Description 10/01/2024 Refill [facility] [address] [place] [address] Mary Ellen Ortega MD [address] [place] [address] Social History Tobacco Use Types Packs/Day Years [...] with others, in a hotel, in a skilled nursing, living outside on the street, on a [...] Description 08/16/2025 10:00 AM EDT Medication Management [facility] [address] [place] [address] Sommer Martinez PharmD [address] [place] [address] documented as of this encounter Visit Diagnoses Not on filedocumented in this encounter Additional Health Concerns Assessment Noted Time PHQ-9 Depression Total Score: 12 024 2:32 PM EDT documented as of this encounter Care Teams County Judge Relationship Specialty Start Date End Date Mary Ellen Ortega MD [address] [place] [phone] PCP - General Internal Medicine 03/15/23 Sommer Martinez PharmD [address] [place] [address] Pharmacist Internal Medicine 09/30/24 documented as of this encounter
--- OUTSIDE RECORDS SUMMARY | 2025-08-03 11:12 | XMS_ITS | Patient Health Record ---
Author Organization [employer] Address [address] [place] [address] [place] [address] Support Name Relationship Address Phone Radha Lux Guarantor Unknown Reason For Referral No Information Plan Of Treatment No Information Insurance Providers Payer Name Payer Address Payer Phone Subscriber Number Group Number Insured Name Patient Relationship to Insured Coverage Start Date Coverage End Date [facility] [employer] [address] [place] [id number] Radha Lux Self - patient is the insured
--- OUTSIDE RECORDS SUMMARY | 2025-08-03 11:12 | XMS_ITS | Patient Health Record ---
Author Organization [facility] Address [address] [place] [address] Care Team Providers Care Solutions Specialist Name Role Phone Larry Carranza Unavailable Unavailable CelCastillo blakeanda Unavailable Unavailable Reason For Referral No Information Plan Of Treatment No Information Insurance Providers Payer Name Payer Address Payer Phone Subscriber Number Group Number Insured Name Patient Relationship to Insured Coverage Start Date Coverage End Date [employer] Medicaid [address] [place] [phone] [id number] Radha Lux Self - patient is the insured
--- OUTSIDE RECORDS SUMMARY | 2025-08-03 11:12 | XMS_ITS | Encounter Summary ---
Author Organization [facility] Address [address] [place] [address] [address] [place] [address] Care Team Providers Care Manager Residential Name Role Phone Mary Ellen Ortega MD Primary Care Pro vider Sommer Martinez PharmD Unavailable [phone] Reason for Visit * Reason Onset Date Comments Medication Question 05/07/2023 Encounter Details Date Type Department Care Team ([facility] st Contact Info) Description 05/07/[address] [facility] [address] [place] [address] Mary Ellen Ortega MD [address] [place], [place] [phone] Medication Question Social History Tobacco Use Types Packs/Day Years [...] suspected to have Coronavirus/COVID-19? No / Unsure 04/30/2023 1:32 PM EDT documented as of this encounter Miscellaneous Notes * Telephone Encounter - Roberta Lomax - 05/07/2023 10:00 AM EDT Tc from patient requesting a call back, in regards to pain medication. Patient was seen in pain management 05/06/23, patient had a surgery where they placed a box with wires on her back and batteries are not currently working. Patient is requesting for pain medication until this is resolved. documented in this encounter Plan of Treatment Upcoming Encounters Date Type Department Care Team (Late st Contact Info) Description 08/16/2025 10:00 AM EDT Medication Management [facility] [address] [place] [phone] Sommer Martinez PharmD [address] [place] [phone] documented as of this encounter Visit Diagnoses Not on filedocumented in this encounter Additional Health Concerns Assessment Noted Time PHQ-9 Depression Total Score: 18 023 1:27 PM EDT documented as of this encounter Care Teams Manager Residential Relationship Specialty Start Date End Date Mary Ellen Ortega MD [address] [place] [phone] PCP - General Internal Medicine 03/15/23 Sommer Martinez PharmD [address] [place] [address] [phone] Pharmacist Internal Medicine 09/30/24 documented as of this encounter
--- OUTSIDE RECORDS SUMMARY | 2025-08-03 11:12 | XMS_ITS | Encounter Summary ---
Author Organization [employer] Address [address] [facility] 7t [place] [address] Care Team Providers Care Players Club Representative Name Role Phone Mary Ellen Ortega MD Primary Care Pro vider Sommer Martinez PharmD Unavailable [phone] Encounter Details Date Type Department Care Team (Late st Contact Info) Description 08/19/2024 Orders Only [facility] [address] [place] [address] Georgette Ramsey MD [address] [place] [address] Social History Tobacco Use Types Packs/Day Years [...] Answer Date Recorded Patient Health Questionnaire-9 Score 12 07/24/2024 Patient Health Questionnaire-9 Score 07/24/2024 Last PHQ-9: Questionnaire Data Not on file 0 07/24/2024 Housing Stability Answer Date Recorded What is your housing situation today? I do not have housing (Staying with others, in a hotel, in a half-way, living outside on the street, on a [...] Description 08/16/2025 10:00 AM EDT Medication Management [facility] [address] [place] [address] Sommer Martinez, PharmD [address] [place] [phone] documented as of this encounter Procedures Procedure Name Priority Date/Time Associated Diagnosis Comments BI MAMMOGRAM DIAGNOSTIC TOMOSYNTHESIS BILATERAL Routine 09/14/2024 11:00 AM EST documented in this encounter Results * BI Mammogram Diagnostic Tomosynthesis Bilateral (09/14/2024 11:00 AM EST) Anatomical Region Laterality Modality Breast Bilateral Mammography 09/14/2024 11:0 0 AM EST Narrative 09/14/2024 12:16 PM EST [facility] [address] [place] [address] Mammography Report Signed Patient: Radha Nguyen R#: [id number] : 1970 Acct:[id number] Age/Sex: 54 / F ADM Date: 09/14/24 Loc: HO.MAMMO Attending Dr: Mary Ellen Orellana MD Ordering Physician: Mary Ellen Ortega MD Re sults: 2Benign Findings Date of Service: 09/14/24 Follow Up: 1 Year From Orig ina Mammogram Procedure(s): MM tomosynthesis diagnostic BI Accession Number(s): [id number] cc: Mary Ellen Ortega MD EXAMINATION: MM [...] by: Andreas Wall MD 09/14/2024 12:13 PM [facility] Dictated By: Andreas Wall MD Signed By: <Electronically signed by Andreas Wall MD in OV> 09/14/24 1213 DD/ 1100 TD/TT: 09/14/24 1137 Mobile Home Servicer: Procedure Note Donotuseinterpreter, Image - 09/14/2024 [facility] [address] [place] [address] Mammography Report Signed Patient: Adeola Nguyen R#: [id number] : 1970Acct:[id number] Age/Sex: 54 / FADM Date: 09/14/24 Loc: HO.MAMMO Attending Dr: Mary Ellen Orellana MD Ordering Physician: Mary Ellen Ortega sults: 2Benign Findings Date of Service: 09/14/24Follow Up: 1 Year From Orig inal Mammogram Procedure(s): MM tomosynthesis diagnostic BI Accession Number(s): [id number] cc: Mary Ellen Ortega MD EXAMINATION: MM [...] by: Andreas Wall MD 09/14/2024 12:13 PM [facility] Dictated By: Andreas Wall MD Signed By: <Electronically signed by Andreas Wall MD in OV> 09/14/24 1213 DD/ 1100 TD/TT: 09/14/24 1137 Mobile Home Servicer: Mary Ellen Orellana MD IMG BI PROCEDURES Edited Result - Final documented in this encounter Visit Diagnoses Not on filedocumented in this encounter Additional Health Concerns Assessment Noted Time PHQ-9 Depression Total Score: 12 024 2:32 PM EDT documented as of this encounter Care Teams Players Club Representative Relationship Specialty Start Date End Date Mary Ellen Ortega MD [address] [place] [phone] PCP - General Internal Medicine 03/15/23 Sommer Martinez PharmD [address] [place] [phone] Pharmacist Internal Medicine 09/30/24 documented as of this encounter
--- NOTE | 2025-08-03 14:36 | CA_ITS ---
Transthoracic Echocardiogram Patient (Last, First, Middle): Radha Nguyen, Gender: F Date of : 1970 Age: 54 Procedure Date: 08/03/2025 Procedure Type: Transthoracic Echocardiogram Location: OP Height: 172.72 cm Weight: 76.2 kg BSA: 1.90 m2 Heart Rate: bpm BP: 140 / 77 mmHg Igniter Capper: /RC Referring MD: Mary Ellen Orellana MD Symptoms: HEART MURMUR R01.1 Study Quality: Adequate ECG Rhythm: Sinus Conclusions: - The left ventricular systolic function is normal. The calculated ejection fraction is 61% by biplane method. - No obvious valvular pathology seen on this study. Findings Left Ventricle Normal left ventricular cavity size. There is normal left ventricular wall thickness. The left ventricular systolic function is normal. The calculated ejection fraction is 61% by biplane method. There is no evidence of regional wall motion abnormalities. Evidence suggests grade I (mild) diastolic dysfunction. Right Ventricle Normal right ventricular cavity size and systolic function. Atria Both atria are normal in size. Aortic Valve There is a normal trileaflet aortic valve. There is no aortic valve stenosis. There is no aortic valve regurgitation. Mitral Valve The mitral valve appears normal. There is no mitral valve regurgitation. There is no mitral valve stenosis. Pulmonic Valve The pulmonic valve is likely normal. Tricuspid Valve Normal tricuspid valve structure. There is trace tricuspid valve regurgitation. There is no evidence of pulmonary hypertension. Great Vessels The asc aorta is normal in size. Venous The inferior vena cava is normal in size and collapses greater than 50% with inspiration. Pericardium/Pleural There is no evidence of pericardial effusion. Prior Study Comparison No prior study available for comparison. Recommendations, Care & Conclusions No obvious valvular pathology seen on this study. Measurements 2D Linear Measurements IVSd: 0.88 0.6-0.9/0.6-1.0 cm LVIDd: 3.97 3.9-5.3/4.2-5.9 cm LVIDd Index: 2.09 2.4-3.2/2.2-3.1 cm/m2 LVIDs: 2.52 2.0-3.6 cm LVPWd: 0.84 0.7-1.1 cm Ao Root: 2.80 2.1-3.5 cm LA Diam: 3.50 2.7-3.8/3.0-4.0 cm LAIDs Index: 1.84 1.5-2.3 cm/m2 LV Mass: 126.41 67-162/88-224 g LV Mass Index: 66.53 43-95/49-115 g/m2 LVOT Diam: 2.00 3.0+(-)1.3 cm 2D Systolic Function EF 4C: 59.20 >55% EF 2C: 67.00 >55% EF BiP: 61.30 >55% Mitral Valve MV Pk E: 0.67 MV PK A: 1.00 MV Decel Time: 259.00 E/A: 0.70 E'Lateral: 7.62 E'Medial: 4.46 E/E' Med: 15.10 E/E' Lat: 8.80 PHT: 76.00 MVA PHT: 2.89 Decel Darke: 2.60 Aortic Valve AoV Pk Evan: 1.66 AoV Mn Evan: 0.99 AoV VTI: 0.29 AoV Pk Grad: 11.00 Aov Mn Grad: 5.00 CHYNA Cont.VTI: 2.35 LVOT LVOT Pk Evan: 1.10 LVOT Mn Evan: 0.74 LVOT VTI: 0.22 LVOT Pk Grad: 5.00 LVOT Mn Grad: 2.00 LVOT Diam: 2.00 LVOT Area: 3.14 Diastolic Function MV Pk E: 0.67 MV Pk A: 1.00 E/A: 0.70 E'Medial: 4.46 E/E' Med: 15.10 E' Laterial: 7.62 E/E' Lat: 8.80 Right Ventricle TAPSE (mm): 20.00 TVS' Evan: 12.00 Tricuspid Valve TR Pk Evan: 2.00 TR Pk Grad: 16.00 RA Press: 3.00 RVSP: 19.00 Great Vessels Aorta Ao Root-2D: 2.80 2.0-3.7 cm Ao Asc: 3.00 2.1-3.4 cm Pulmonary Veins Pulm Vein S/D 1.20 Pulmonary Valve PV Pk Evan: 1.15 Peak PV Grad: 5.00 Updated in Other Vendor System with Status of Final René Rasmussen MD electronically signed on 08/04/2025 9:36:26 AM with status of Final
== END ==
LOC: HO.CARD 09:26
PROVIDERS: PCP Student in an Organized Health Care Education/Training Program; Visit Provider Student in an Organized Health Care Education/Training Program
DX: M47.816 Spondylosis without myelopathy or radiculopathy, lumbar region (principal); M96.1 Postlaminectomy syndrome, not elsewhere classified; M54.16 Radiculopathy, lumbar region; M48.061 Spinal stenosis, lumbar region without neurogenic claudication; R01.1 Cardiac murmur, unspecified; Z96.89 Presence of other specified functional implants
CPT/HCPCS: 72131; 93306

== ENCOUNTER → 2025-08-03 09:28 | Outpatient (BNV) | payer MEDICAID, SELFPAY | PROVIDERS: PCP Student in an Organized Health Care Education/Training Program; Visit Provider Radiology Diagnostic Radiology | DX: M47.816 Spondylosis without myelopathy or radiculopathy, lumbar region (principal) | CPT/HCPCS: 72131 ==

== ENCOUNTER → 2025-08-03 14:36 | Outpatient (BNV) | payer MEDICAID, SELFPAY | PROVIDERS: PCP Student in an Organized Health Care Education/Training Program; Visit Provider Internal Medicine | DX: R01.1 Cardiac murmur, unspecified (principal); I51.89 Other ill-defined heart diseases | CPT/HCPCS: 93306 ==

== ENCOUNTER 2025-08-10 10:10 | Emergency (ER) | payer MEDICAID, SELFPAY ==
--- NOTE | ~2025-08-10 | US_ITS ---
EXAMINATION: US KIDNEY BILATERAL HISTORY: flank pain, hx of kidney stones TECHNIQUE: Real-time grayscale ultrasound imaging of the kidneys was performed and images were reviewed. COMPARISON: Comparison is made with the prior examination dated 12/28/2023. FINDINGS: Right kidney: The right kidney measures 10.6 x 6.6 x 6.0 cm. Renal parenchymal echotexture and thickness are normal. There is an upper pole cyst measuring 2.9 x 2.3 x 2.4 cm. There is a nonobstructing lower pole calculus measuring 5 x 2 x 4 mm. There is no hydronephrosis. Left Kidney: The left kidney measures 11.8 x 6.1 x 4.8 cm. Renal parenchymal echotexture and thickness are normal. There is an upper pole cyst measuring 1.6 x 1.3 x 1.4 cm and a cyst in the interpolar region measuring 1.5 x 1.0 x 1.7 cm. No definite calculi are identified. There is no hydronephrosis. US/US renal BI IMPRESSION: 1. 5 x 2 x 4 mm nonobstructing calculus at the lower pole of the right kidney. 2. Bilateral renal cysts as described. Electronically signed by: Slava Mac MD 08/10/2025 01:42 PM EDT
[2025-08-10 10:36] VITALS: BP 126/60; PULSE 85; RESP 18; TEMP 36.9; O2SAT 97; BMI 24.0
--- NOTE | 2025-08-10 10:36 | ED.GENADULT ---
HPI - General Adult General Chief complaint: Urogenital-Female Stated complaint: Back pain, pain upon urination Time Seen by Provider: 08/10/25 15:16 History of Present Illness ED Provider: López Browne MD HPI narrative: 54-year-old female with recurrent UTIs here with flank pain and dysuria, vomiting. Two weeks ago. Patient also reports occasional abnormal binocular floaters. No eye pain no headache. Patient has had UTIs in the past denies fevers or night sweats. No dysuria Related Data Home Medications ?Medication ?Instructions ?Recorded ?Confirmed insulin lispro 100 unit/mL 20 unit subcut TID 10/20/22 12/26/23 subcutaneous pen montelukast 10 mg tablet 1 tab PO QPM 10/20/22 12/26/23 potassium chloride 10 mEq 1 tab PO DAILY 10/20/22 12/26/23 tablet,extended release valsartan 320 1 tab PO DAILY 10/20/22 12/26/23 mg-hydrochlorothiazide 25 mg tablet albuterol sulfate 90 mcg/actuation 2 puff inhalation Q4H PRN wheezing 05/06/23 12/26/23 aerosol inhaler (Ventolin HFA) cetirizine 10 mg tablet 10 mg PO QAM 05/06/23 12/26/23 clonidine HCl 0.1 mg tablet 0.1 mg PO BEDTIME PRN Anxiety 05/06/23 12/26/23 clopidogrel 75 mg tablet 75 mg PO QAM 05/06/23 12/26/23 fluticasone 250 mcg-salmeterol 50 1 ea inhalation BID 05/06/23 12/26/23 mcg/dose blistr powdr for inhalation (Advair Diskus) metformin 500 mg tablet 500 mg PO QAM 05/06/23 12/26/23 albuterol sulfate 2.5 mg/3 mL 2.5 mg inhalation DAILY PRN 08/08/23 12/26/23 (0.083 %) solution for nebulization wheezing atorvastatin 20 mg tablet 20 mg PO QAM 08/08/23 12/26/23 dapagliflozin propanediol 10 mg 10 mg PO QAM 08/08/23 12/26/23 tablet (Farxiga) amlodipine 10 mg tablet 10 mg PO BEDTIME 09/05/23 12/26/23 aspirin 81 mg chewable tablet 1 tab PO QAM 09/05/23 12/26/23 umeclidinium 62.5 mcg/actuation 1 inh inhalation DAILY 09/05/23 12/26/23 blister powder for inhalation (Incruse Ellipta) dextroamphetamine-amphetamine ER 1 cap PO QAM 11/25/23 12/26/23 20 mg 24hr capsule,extend release (Adderall XR) dulaglutide 0.75 mg/0.5 mL 0.75 mg subcut FR 11/25/23 12/26/23 subcutaneous pen injector (Trulicity) melatonin 5 mg tablet 5 mg PO BEDTIME 11/25/23 12/26/23 diclofenac sodium 1 % topical gel 2 g topical QID pain 12/26/23 12/26/23 gabapentin 100 mg capsule 200 mg PO TID 12/26/23 12/26/23 insulin detemir U-100 100 unit/mL 30 unit subcut BEDTIME 12/26/23 12/26/23 (3 mL) subcutaneous pen multivitamin 1 tab PO DAILY 12/26/23 12/26/23 cyclobenzaprine 10 mg tablet 10 mg PO DAILY PRN muscle spasm 05/27/25 Previous Rx's ?Medication ?Instructions ?Recorded bisacodyl 5 mg tablet,delayed 20 mg (4 x 5 mg) PO ONCE PRN 02/17/24 release (Dulcolax (bisacodyl)) colonoscopy prep 1 day #4 tabs polyethylene glycol 3350 17 238 g PO ONCE PRN laxative effect 02/17/24 gram/dose oral powder (Miralax) 1 day #238 grams pantoprazole 40 mg tablet,delayed 40 mg PO QAM #30 tabs 08/28/24 release cefuroxime axetil 250 mg tablet 250 mg PO BID 7 days #14 tabs 11/09/24 dicyclomine 20 mg tablet 20 mg PO BID #6 tabs 01/18/25 ondansetron HCl 4 mg tablet 4 mg PO Q8H PRN nausea and 01/18/25 vomiting #10 tabs methylprednisolone 4 mg tablets in See Rx Instructions PO PER PKG DIR 05/27/25 a dose pack (Medrol (Tushar)) pain #21 ea tizanidine 2 mg tablet 2 mg PO TID PRN muscle spasticity 05/27/25 30 days #60 tabs cefpodoxime 200 mg tablet 200 mg PO BID 10 days #20 tabs 08/10/25 ondansetron 4 mg disintegrating 4 mg PO Q8H PRN nausea and 08/10/25 tablet vomiting #7 tabs Allergies Allergy/AdvReac Type Severity Reaction Status Date / Time Iodinated Contrast Media (IV Allergy Unknown HIVES Verified 08/10/25 10:39 DYE, IODINE CONTAINING) [facility] Past Medical History Medical History (Updated 08/10/25 @ 16:12 by López Browne MD) Hematuria Abdominal pain, right lower quadrant Flank pain Elevated WBC count Acidosis, lactic 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 PAD (peripheral artery disease) Mild acid reflux Raynauds disease Insulin dependent type 2 diabetes mellitus Peripheral neuropathy Non-insulin dependent type 2 diabetes mellitus Hypertension Sepsis Surgical History (Updated 06/25/24 @ 15:47 by Radha Meyers RN) S/P placement of nerve stimulator S/P cholecystectomy S/P appendectomy History of esophagogastroduodenoscopy (EGD) Hx of colonoscopy Amputated left leg Family History Family History Mother Acute eczema HTN (hypertension) Diabetes Family/Other Cancer Social History Social History Household Members: Family Housing: Apartment Do you presently have visiting nurse or other home services: No Alcohol intake: never Patient Tobacco Use Status: Former Tobacco user Tobacco use type: Cigarette Second Hand Smoke Exposure: No Advance Directives: Yes Advance Directives on File: Yes Advance Directives Date on File: 12/31/23 service: No Current occupational status: disabled Physical Exam ED Exam Exam: EXAM: Gen: Alert, awake, well appearing, well hydrated. Head: Atraumatic Eyes: Anicteric, Normal conjunctiva. Gross vision intact EOMI. ENT: Moist mucosa, no pallor. ? Neck: Supple. Skin: ?No observable rash or bruising on exposed or examined skin Respiratory: Breathing comfortably, No distress.Clear to auscultation bilaterally, symmetric chest expansion, No wheeze, rales, ronchi. Cardiovascular: Regular rate and rhythm. No murmurs or rub. Well perfused periphery, warm extremities. No edema. ? Abdominal: No focal tenderness. Soft, no objective distension. No palpable masses or obvious organomegaly. ?No guarding, no rebound tenderness or other peritoneal findings. : Moderate by lateral flank tenderness Neuro: Alert. Gross movement of all extremities intact. ? Psych: Calm. Cooperative. MSK: No grossly visible deformity. Left lower extremity remote amputation Vital signs: See flowsheet Vital Signs: Vital Signs - 24 hr 08/10/25 10:36 08/10/25 14:00 08/10/25 16:34 Temperature 98.5 F 98.5 F 98.5 F Pulse Rate 85 82 82 Respiratory Rate 18 16 16 Blood Pressure 126/60 124/68 124/68 Pulse Oximetry 97 98 98 Oxygen Delivery Method Room Air Room Air Room Air BMI result Body Mass Index 24.0 Course Course Course Narrative: This is an RME: Additional HPI, ROS, PE not included below will be deferred to primary provider. RME assessment and note performed by: Ailyn Bowen PA-C This is a 20-wpks-bta-female, with a PMHx of diabetes, hypertension, hyperlipidemia, peripheral arterial disease status post left [id number] amputation who is anticoagulated, chronic back pain, sleep apnea, GERD, kidney stones who presents to the ER with complaints of back pain and pain with urination x 2 weeks. Endorsing +vomiting. +Chills, no known fevers. Also reporting intermittent floaters in her BL eyes. She is neurologically intact, no focal deficits on exam. Plan: Labs, UA, further ER eval needed Medications Administered Discontinued Medications Generic Name Dose Route Start Last Admin Trade Name Freq PRN Reason Stop Dose Admin Acetaminophen 975 mg 08/10/25 15:58 08/10/25 16:33 Acetaminophen 325 Mg Tablet PO 08/10/25 15:59 Not Given ONCE ONE Cefuroxime Axetil 500 mg 08/10/25 15:58 08/10/25 16:33 Cefuroxime Axetil 500 Mg Tablet PO 08/10/25 15:59 Not Given ONCE ONE Procedures Procedure Narrative Procedure Narrative: EMERGENCY ULTRASOUND INTERPRETATION-Limited Ophthalmic US [This study was ordered, performed, and interpreted by myself. The study reveals: Impression: NO PATHOLOGY VISUALIZED] [Indication: Anterior Chamber: NO PATHOLOGY VISUALIZED Posterior Chamber: NO PATHOLOGY VISUALIZED Performed by: López Browne MD Images were stored CPT: 70083] Medical Decision Making Medical Decision Making MDM Narrative: Medical Decision Making: [age] female with flank pain dysuria. Patient is afebrile in his hemodynamic stable bilateral flank pain and tenderness is present. No urologic obstruction on ultrasound. The patient noted bilateral floaters in the vision. There was no findings to explain these symptoms on bilateral ocular ultrasound the patient may need ophthalmologic workup as outpatient as the patient is a diabetic. Preliminary Favored Differential Diagnosis: Kidney stones, pyelonephritis, posterior chamber hemorrhage. Retinal pathology among additional considered etiologies Testing Interpreted Independently: ?See below for details Radiology or Lab testing Results Reviewed: ?See below for details Consults: ?See below for details Independent Historians/External Chart Reviews: ?See below for details Social Determinants of Health Impacting MDM/Planning: ?See below for details Lab Data 08/10/25 10:45 08/10/25 10:45 Labs: Lab Results 08/10/25 08/10/25 Range/Units 10:45 15:23 WBC 10.7 (4.8-10.8) X10*3/uL RBC 5.45 (4.20-5.50) X10*6/uL Hgb 15.1 (12.0-16.0) g/dl Hct 46.6 (37.0-47.0) % MCV 85.5 (80.0-98.0) fL MCH 27.7 (27.0-33.0) pg MCHC 32.4 (31.0-35.0) g/dl RDW 12.4 (11.0-16.0) % Plt Count 340 (160-400) X10*3/uL MPV 9.5 (9.4-12.3) fL Immature Gran % (Auto) 0.3 (0.0-0.4) % Neut % (Auto) 61.4 (45-73) % Lymph % (Auto) 28.8 (20-40) % [place] % (Auto) 6.5 (2-11) % Eos % (Auto) 2.4 (0-4) % Baso % (Auto) 0.6 (0-2) % Lymph # (Auto) 3.1 (1.2-4.9) X10*3/uL [place] # (Auto) 0.7 (0.1-1.2) X10*3/uL Eos # (Auto) 0.3 (0.0-0.4) X10*3/uL Baso # (Auto) 0.1 (0.0-0.2) X10*3/uL Abs Immat Gran (auto) 0.03 (0.00-0.03) X10*3/uL Absolute Neuts (auto) 6.6 (2.0-8.3) x10*3/uL Absolute Nucleated RBC 0.000 (0.0-0.012) X10*3/uL Nucleated RBC % (auto) 0.0 (0.0-0.2) /100WBC Sodium 142 (135-145) mmol/L Potassium 3.1 L (3.3-5.1) mmol/L Chloride 105 (96-108) mmol/L Carbon Dioxide 25 (22-29) mmol/L Anion Gap 15 (12-20) BUN 9 (9-16) mg/dL Creatinine 0.74 (0.5-1.4) mg/dL Estim Creat Clear Calc 85.6 Estimated GFR > 60 Random Glucose 168 H (60-115) mg/dL Calcium 9.6 (8.4-10.2) mg/dL Magnesium 1.7 (1.6-2.6) mg/dL Total Bilirubin 0.8 (0.0-1.0) mg/dL Direct Bilirubin 0.3 (0.0-0.5) mg/dL AST 29 (5-31) U/L ALT 33 H (0-31) U/L Alkaline Phosphatase 141 H (39-117) U/L Total Creatine Kinase 52 (26-140) U/L Total Protein 7.8 (6.5-8.0) g/dL Albumin 4.8 (3.5-5.0) g/dL Lipase 21 (8-78) U/L Urine Color Dark Yellow Urine Appearance Clear Urine pH 5.5 (5.0-9.0) Ur Specific [place] >= 1.030 H (1.005-1.025) Urine Protein Trace (Neg-Trace) mg/dL Urine Glucose (UA) >=1000 H (Negative) mg/dL Urine Ketones Trace (Negative) mg/dL Urine Blood Negative (Negative) Urine Nitrite Positive H (Negative) Ur Leukocyte Esterase Trace H (Negative) Urine RBC 0-2 (0-2) /HPF Urine WBC 21-50 H (0-5) /HPF Ur Squamous Epith Cells 3-5 (0-2) /HPF Urine Bacteria 4+ (None Seen) Hyaline Casts 0-2 (0-2) /LPF Discharge Plan Discharge Clinical Impression: Floaters in visual field, Pyelonephritis Patient Disposition: Home, Self-Care Instructions: Kidney Infection (ED), Eye (Visual) Floaters (ED) Additional Instructions: You came in with bilateral pain in your flank and had signs of urinary tract infection. We have initiated antibiotics and we have also provided nausea medicine. Additionally an ultrasound was done of both eyes which does not see any significant bleeding or detachment of the retina in the back of the eye but you may need further ophthalmologic testing call your primary doctor or our datapower developer for follow up Prescriptions: New ondansetron 4 mg tablet,disintegrating 4 mg PO Q8H PRN (Reason: nausea and vomiting) Qty: 7 0RF cefpodoxime 200 mg tablet 200 mg PO BID 10 Days Qty: 20 0RF Rx Instructions: must administer with a meal/food No Action pantoprazole 40 mg tablet,delayed release (DR/EC) 40 mg PO QAM Qty: 30 6RF potassium chloride 10 mEq tablet extended release 1 tab PO DAILY montelukast 10 mg tablet 1 tab PO QPM insulin lispro 100 unit/mL insulin pen 20 unit subcut TID valsartan-hydrochlorothiazide 320-25 mg tablet 1 tab PO DAILY dicyclomine 20 mg tablet 20 mg PO BID Qty: 6 0RF ondansetron HCl 4 mg tablet 4 mg PO Q8H PRN (Reason: nausea and vomiting) Qty: 10 0RF gabapentin 100 mg capsule 200 mg PO TID insulin detemir U-100 100 unit/mL (3 mL) Insulin Pen 30 unit SUBCUT BEDTIME diclofenac sodium 1 % gel 2 g topical QID multivitamin Tablet 1 tab PO DAILY cefuroxime axetil 250 mg tablet 250 mg PO BID 7 Days Qty: 14 0RF Trulicity 0.75 mg/0.5 mL pen injector 0.75 mg subcut FR melatonin 5 mg tablet 5 mg PO BEDTIME dextroamphetamine-amphetamine [Adderall XR] 20 mg capsule,extended release 24hr 1 cap PO QAM bisacodyl [Dulcolax (bisacodyl)] 5 mg tablet,delayed release (DR/EC) 20 mg PO ONCE PRN (Reason: colonoscopy prep) 1 Days Qty: 4 0RF Rx Instructions: Day before procedure @ 12 noon Take 4 tablets by mouth followed by large glass of water polyethylene glycol 3350 [Miralax] 17 gram/dose powder 238 g PO ONCE PRN (Reason: laxative effect) 1 Days Qty: 238 0RF Rx Instructions: Take as directed by mouth the day before your procedure. cetirizine 10 mg tablet 10 mg PO QAM clopidogrel 75 mg tablet 75 mg PO QAM albuterol sulfate [Ventolin HFA] 90 mcg/actuation HFA aerosol inhaler 2 puff inhalation Q4H PRN (Reason: wheezing) metformin 500 mg tablet 500 mg PO QAM clonidine HCl 0.1 mg tablet 0.1 mg PO BEDTIME PRN (Reason: Anxiety) fluticasone propion-salmeterol [Advair Diskus] 250-50 mcg/dose blister with device 1 ea inhalation BID albuterol sulfate 2.5 mg /3 mL (0.083 %) solution for nebulization 2.5 mg inhalation DAILY PRN (Reason: wheezing) Farxiga 10 mg tablet 10 mg PO QAM atorvastatin 20 mg tablet 20 mg PO QAM amlodipine 10 mg tablet 10 mg PO BEDTIME aspirin 81 mg tablet,chewable 1 tab PO QAM Incruse Ellipta 62.5 mcg/actuation blister with device 1 inh inhalation DAILY cyclobenzaprine 10 mg tablet 10 mg PO DAILY PRN (Reason: muscle spasm) tizanidine 2 mg tablet 2 mg PO TID PRN (Reason: muscle spasticity) 30 Days Qty: 60 0RF methylprednisolone [Medrol (Tushar)] 4 mg tablets,dose pack See Rx Instructions PO PER PKG DIR Qty: 21 0RF Rx Instructions: PO PER PKG DIR for 6 days Interventions: ED Discharge Assessment Last Done: 08/10/25 16:34 Discharge Date/Time: 08/10/25 16:34 Print Language: Indonesian
[2025-08-10 10:49] LABS: MANUAL DIFF FLAG NO
[2025-08-10 10:50] LABS: Hematocrit 46.6 % (37.0-47.0); Hemoglobin 15.1 g/dl (12.0-16.0); Imm Gran Abs Auto 0.03 X10*3/uL (0.00-0.03); Imm Gran Pct Auto 0.3 % (0.0-0.4); Lymphocytes Absolute Auto 3.1 X10*3/uL (1.2-4.9); Mean Corpuscular HGB Conc 32.4 g/dl (31.0-35.0); Mean Corpuscular Hemoglobin 27.7 pg (27.0-33.0); Mean Corpuscular Volume 85.5 fL (80.0-98.0); NRBC Abs Auto 0.000 X10*3/uL (0.0-0.012); NRBC Pct Auto 0.0 /100WBC (0.0-0.2); Platelet Count 340 X10*3/uL (160-400); Red Blood Count 5.45 X10*6/uL (4.20-5.50); White Blood Count 10.7 X10*3/uL (4.8-10.8)
[2025-08-10 11:05] LABS: Alanine Aminotransferase 33 U/L (0-31); Albumin Level 4.8 g/dL (3.5-5.0); Alkaline Phosphatase 141 U/L (39-117); Anion Gap 15 (12-20); Aspartate Amino Transferase 29 U/L (5-31); Blood Urea Nitrogen 9 mg/dL (9-16); Calcium 9.6 mg/dL (8.4-10.2); Carbon Dioxide 25 mmol/L (22-29); Chloride 105 mmol/L (96-108); Creatinine Clr Calc Pharmacy 85.6; Estimated Glomerular Filt Rate > 60; Lipase 21 U/L (8-78); Magnesium 1.7 mg/dL (1.6-2.6); Potassium 3.1 mmol/L (3.3-5.1); Sodium 142 mmol/L (135-145); Total Protein 7.8 g/dL (6.5-8.0)
[2025-08-10 14:00] VITALS: BP 124/68; PULSE 82; RESP 16; TEMP 36.9; O2SAT 98
[2025-08-10 15:36] LABS: Appearance Urine Clear; Glucose Urine UA >=1000 mg/dL (Negative); PH 5.5 (5.0-9.0); Specific Gravity - Urine >= 1.030 (1.005-1.025); UMIC TRIGGER UACC YES
[2025-08-10 15:38] LABS: UACC Culture Trigger YES
[2025-08-10 16:34] VITALS: BP 124/68; PULSE 82; RESP 16; TEMP 36.9; O2SAT 98
--- OUTSIDE RECORDS SUMMARY | 2025-08-10 16:34 | XMS_ITS | Encounter Summary ---
Author Organization [employer] Address [address] [facility] 7t [place] [address] Care Team Providers Care Mig Tig Welder Name Role Phone Mary Ellen Ortega MD Primary Care Pro vider Sommer Martinez PharmD Unavailable [phone] Reason for Visit * Reason Comments Med Refill Encounter Details Date Type Department Care Team (Late st Contact Info) Description 03/08/2024 Refill [facility] [address] [place] [address] Patience Garcia, ANP [address] [place] [address] Social History Tobacco Use Types Packs/Day Years [...] with others, in a hotel, in a care home, living outside on the street, on a [...] Description 08/16/2025 10:00 AM EDT Medication Management [facility] [address] [place], [place] [phone] Sommer Martinez PharmD [address] [place] [address] documented as of this encounter Visit Diagnoses Not on filedocumented in this encounter Additional Health Concerns Assessment Noted Time PHQ-9 Depression Total Score: 17 024 12:38 PM EST documented as of this encounter Care Teams Mig Tig Welder Relationship Specialty Start Date End Date Mary Ellen Ortega MD [address] [place] [address] [phone] PCP - General Internal Medicine 03/15/23 Sommer Martinez PharmD [address] [place] [address] [phone] Pharmacist Internal Medicine 09/30/24 documented as of this encounter
--- OUTSIDE RECORDS SUMMARY | 2025-08-10 16:34 | XMS_ITS | Encounter Summary ---
Author Organization [employer] Address [address] [place] [address] 7[address] [place] [address] Care Team Providers Care Home Based Assistant Name Role Phone Mary Ellen Ortega MD Primary Care Pro vider Sommer Martinez PharmD Unavailable [phone] Reason for Visit * Reason Comments Med Refill Encounter Details Date Type Department Care Team ([facility] st Contact Info) Description 07/26/2025 Refill [facility] [address] [place] [address] Mary Ellen Ortega MD [address] [place], [place] [phone] Social History Tobacco Use Types Packs/Day Years [...] Medication Management [facility] [address] [place] [phone] Sommer Martinez PharmD [address] [place] [phone] documented as of this encounter Visit Diagnoses Not on filedocumented in this encounter Additional Health Concerns Assessment Noted Time PHQ-9 Depression Total Score: 11 025 10:50 AM EDT documented as of this encounter Care Teams Home Based Assistant Relationship Specialty Start Date End Date Mary Ellen Ortega MD [address] [place] [phone] PCP - General Internal Medicine 03/15/23 Sommer Martinez PharmD [address] [place] [address] [phone] Pharmacist Internal Medicine 09/30/24 documented as of this encounter
--- OUTSIDE RECORDS SUMMARY | 2025-08-10 16:34 | XMS_ITS | Encounter Summary ---
Author Organization [employer] Address [address] [facility] [address] [place] [address] Care Team Providers Care Wool Handler Name Role Phone Mary Ellen Ortega MD Primary Care Pro vider Sommer Martinez PharmD Unavailable [phone] Reason for Visit * Reason Onset Date Comments Appointment Request 03/24/2025 Encounter Details Date Type Department Care Team ([facility] st Contact Info) Description 03/24/2025 Telephone [facility] [address] [place] [address] Mary Ellen Ortega MD [address] [place] [address] Appointment Request Social History Tobacco Use Types [...] Description 08/16/2025 10:00 AM EDT Medication Management [facility] [address] [place] [phone] Sommer Martinez PharmD [address] [place] [address] [phone] documented as of this encounter Visit Diagnoses Not on filedocumented in this encounter Additional Health Concerns Assessment Noted Time PHQ-9 Depression Total Score: 12 024 2:32 PM EDT documented as of this encounter Care Teams Wool Handler Relationship Specialty Start Date End Date Mary Ellen Ortega MD [address] [place] [address] [phone] PCP - General Internal Medicine 03/15/23 Sommer Martinez PharmD [address] [place] [address] [phone] Pharmacist Internal Medicine 09/30/24 documented as of this encounter
--- OUTSIDE RECORDS SUMMARY | 2025-08-10 16:34 | XMS_ITS | Encounter Summary ---
Author Organization [employer] Address [address] [facility] 7t [place] [address] Care Team Providers Care Retail Marketing Coordinator Name Role Phone Mary Ellen Ortega MD Primary Care Pro vider Sommer Martinez PharmD Unavailable [phone] Reason for Visit * Reason Comments Med Refill Encounter Details Date Type Department Care Team ([facility] st Contact Info) Description 05/27/2025 Refill [facility] [address] [place] [address] Mary Ellen Rosario MD 230 [place], [place] [phone] Social History Tobacco Use Types Packs/Day Years [...] Description 08/16/2025 10:00 AM EDT Medication Management [facility] [address] [place] [phone] Sommer Martinez PharmD [address] [place] [phone] documented as of this encounter Visit Diagnoses Not on filedocumented in this encounter Additional Health Concerns Assessment Noted Time PHQ-9 Depression Total Score: 11 025 10:50 AM EDT documented as of this encounter Care Teams Retail Marketing Coordinator Relationship Specialty Start Date End Date Mary Ellen Ortega MD [address] [place] [phone] PCP - General Internal Medicine 03/15/23 Sommer Martinez PharmD [address] [place] [address] [phone] Pharmacist Internal Medicine 09/30/24 documented as of this encounter
--- OUTSIDE RECORDS SUMMARY | 2025-08-10 16:34 | XMS_ITS | Encounter Summary ---
Author Organization [facility] Address [address] [place] [address] [address] [place] [address] Care Team Providers Care Hood Fitter Name Role Phone Mary Ellen Ortega MD Primary Care Pro vider Sommer Martinez PharmD Unavailable [phone] Reason for Visit * Reason Onset Date Comments Referral 04/01/2023 Encounter Details Date Type Department Care Team ([facility] st Contact Info) Description 04/01/2023 Telephone [facility] [address] [place] [address] Mary Ellen Ortega MD [address] [place] [address] Referral Social History Tobacco Use Types Packs/Day [...] 11:19 AM EDT Pt was seen by [facility] on 03/15/23 and appears to have an upcoming appt with [facility] on 04/05/23. Unsure if ptstill has pending appt. Will send message to [facility] to outreach pt regarding request. * Telephone Encounter - Sawyer Quiñonez - 04/01/2023 10:16 AM EDT Tc from pt requesting status on referral for a psychiatrist. Please contact pt at [phone] documented in this encounter Plan of Treatment Upcoming Encounters Date Type Department Care Team (Late st Contact Info) Description 08/16/2025 10:00 AM EDT Medication Management [facility] [address] [place], [place] [phone] Sommer Martinez PharmD [address] [place] [address] documented as of this encounter Visit Diagnoses Not on filedocumented in this encounter Additional Health Concerns Assessment Noted Time PHQ-9 Depression Total Score: 18 023 1:27 PM EDT documented as of this encounter Care Teams Hood Fitter Relationship Specialty Start Date End Date Mary Ellen Ortega MD [address] [place] [address] [phone] PCP - General Internal Medicine 03/15/23 Sommer Martinez PharmD [address] [place] [address] [phone] Pharmacist Internal Medicine 09/30/24 documented as of this encounter
--- OUTSIDE RECORDS SUMMARY | 2025-08-10 16:34 | XMS_ITS | Encounter Summary ---
Author Organization [employer] Address [address] [facility] 7t [place] [address] Care Team Providers Care Wind Development Director Name Role Phone Mary Ellen Ortega MD Primary Care Pro vider Sommer Martinez PharmD Unavailable Encounter Details Date Type Department Care Team (Late st Contact Info) Description 08/19/2024 Orders Only [facility] MED[facility]INE [address] [place] [address] Georgette Ramsey MD [address] [place] [address] Social History Tobacco Use Types Packs/Day Years [...] Description 08/16/2025 10:00 AM EDT Medication Management [facility] [address] [place] [address] Sommer Martinez, PharmD [address] [place] [address] documented as of this encounter Procedures Procedure Name Priority Date/Time Associated Diagnosis Comments BI MAMMOGRAM DIAGNOSTIC TOMOSYNTHESIS BILATERAL Routine 09/14/2024 11:00 AM EST documented in this encounter Results * BI Mammogram Diagnostic Tomosynthesis Bilateral (09/14/2024 11:00 AM EST) Anatomical Region Laterality Modality Breast Bilateral Mammography 09/14/2024 11:0 0 AM EST Narrative 09/14/2024 12:16 PM EST [facility] [address] [place] [address] Mammography Report Signed Patient: Radha Nguyen R#: [id number] : 1970 Acct:[id number] Age/Sex: 54 / F ADM Date: 09/14/24 Loc: HO.MAMMO Attending Dr: Mary Ellen Orellana MD Ordering Physician: Mary Ellen Ortega MD Re sults: 2Benign Findings Date of Service: 09/14/24 Follow Up: 1 Year From Orig ina Mammogram Procedure(s): MM tomosynthesis diagnostic BI Accession Number(s): [id number] cc: Mary Ellen Ortega MD EXAMINATION: MM [...] by: Andreas Wall MD 09/14/2024 12:13 PM [facility] Dictated By: Andreas Wall MD Signed By: <Electronically signed by Andreas Wall MD in OV> 09/14/24 1213 DD/ 1100 TD/TT: 09/14/24 1137 Rubber Printing Machine Operator: Procedure Note Donotuseinterpreter, Image - 09/14/2024 [facility] [address] [place] [address] Mammography Report Signed Patient: Adeola Nguyen R#: [id number] : 1970Acct:[id number] Age/Sex: 54 / FADM Date: 09/14/24 Loc: HO.MAMMO Attending Dr: Mary Ellen Orellana MD Ordering Physician: Mary Ellen Ortega sults: 2Benign Findings Date of Service: 09/14/24Follow Up: 1 Year From Orig inal Mammogram Procedure(s): MM tomosynthesis diagnostic BI Accession Number(s): [id number] cc: Mary Ellen Ortega MD EXAMINATION: MM [...] by: Andreas Wall MD 09/14/2024 12:13 PM [facility] Dictated By: Andreas Wall MD Signed By: <Electronically signed by Andreas Wall MD in OV> 09/14/24 1213 DD/ 1100 TD/TT: 09/14/24 1137 Rubber Printing Machine Operator: Mary Ellen Orellana MD IMG BI PROCEDURES Edited Result - Final documented in this encounter Visit Diagnoses Not on filedocumented in this encounter Additional Health Concerns Assessment Noted Time PHQ-9 Depression Total Score: 12 024 2:32 PM EDT documented as of this encounter Care Teams Wind Development Director Relationship Specialty Start Date End Date Mary Ellen Ortega MD [address] [place] [phone] PCP - General Internal Medicine 03/15/23 Sommer Martinez PharmD [address] [place] [phone] Pharmacist Internal Medicine 09/30/24 documented as of this encounter
--- OUTSIDE RECORDS SUMMARY | 2025-08-10 16:34 | XMS_ITS | Encounter Summary ---
Author Organization [employer] [facility] Address [address] [place] [address] 7[address] [place] [address] Care Team Providers Care Monorail Charger Operator Name Role Phone Mary Ellen Ortega MD Primary Care Pro vider Sommer Martinez PharmD Unavailable [phone] Reason for Visit * Reason Onset Date Comments Medication Question 05/07/2023 Encounter Details Date Type Department Care Team ([facility] st Contact Info) Description 05/07/2023 Telephone [facility] MEDICINE [address] [place] [address] Mary Ellen Ortega MD [address] [place], [place] [phone] Medication Question Social History Tobacco Use Types [...] 08/16/2025 10:00 AM EDT Medication Management [facility] [address] [place] [address] Sommer Martinez PharmD [address] [place] [address] documented as of this encounter Visit Diagnoses Not on filedocumented in this encounter Additional Health Concerns Assessment Noted Time PHQ-9 Depression Total Score: 18 023 1:27 PM EDT documented as of this encounter Care Teams Monorail Charger Operator Relationship Specialty Start Date End Date Mary Ellen Ortega MD [address] [place] [address] PCP - General Internal Medicine 03/15/23 Sommer Martinez PharmD [address] [place] [address] [phone] Pharmacist Internal Medicine 09/30/24 documented as of this encounter
--- OUTSIDE RECORDS SUMMARY | 2025-08-10 16:34 | XMS_ITS | Encounter Summary ---
Author Organization [employer] Address [address] [place] [address] 7t [place] [address] Care Team Providers Care Machine Clothing Replacer Name Role Phone Mary Ellen Ortega MD Primary Care Pro vider Sommer Martinez PharmD Unavailable [phone] Reason for Visit * Reason Comments Med Refill Encounter Details Date Type Department Care Team ([facility] st Contact Info) Description 02/11/2025 Refill [facility] MEDICINE [address] [place] [address] Mary Ellen Ortega MD [address] [place], [place] [phone] Tenderness over maxillary sinus Social History Tobacco [...] with others, in a hotel, in a mcfp, living outside on the street, on a [...] 10:00 AM EDT Medication Management [facility] MED[facility]INE [address] [place] [address] Sommer Martinez PharmD [address] [place] [address] documented as of this encounter Visit Diagnoses Diagnosis Tenderness over maxillary sinus documented in this encounter Additional Health Concerns Assessment Noted Time PHQ-9 Depression Total Score: 12 024 2:32 PM EDT documented as of this encounter Care Teams Machine Clothing Replacer Relationship Specialty Start Date End Date Mary Ellen Ortega MD [address] [place] [address] PCP - General Internal Medicine 03/15/23 Sommer Martinez PharmD [address] [place] [phone] Pharmacist Internal Medicine 09/30/24 documented as of this encounter
--- OUTSIDE RECORDS SUMMARY | 2025-08-10 16:34 | XMS_ITS | Encounter Summary ---
Author Organization [employer] Address [address] [place] [address] 7t [place] [address] Care Team Providers Care Baggage Inspector Name Role Phone Mary Ellen Ortega MD Primary Care Pro vider Sommer Martinez PharmD Unavailable [phone] Reason for Visit * Reason Comments Med Refill Encounter Details Date Type Department Care Team ([facility] st Contact Info) Description 02/26/2025 Refill [facility] MEDICINE [address] [place] [address] Mary Ellen Ortega MD [address] [place], [place] [phone] Social History Tobacco Use Types Packs/Day Years [...] Description 08/16/2025 10:00 AM EDT Medication Management [facility] MEDICINE [address] [place] [phone] Sommer Martinez PharmD [address] [place] [address] documented as of this encounter Visit Diagnoses Not on filedocumented in this encounter Additional Health Concerns Assessment Noted Time PHQ-9 Depression Total Score: 12 024 2:32 PM EDT documented as of this encounter Care Teams Baggage Inspector Relationship Specialty Start Date End Date Mary Ellen Ortega MD [address] [place] [phone] PCP - General Internal Medicine 03/15/23 Sommer Martinez PharmD [address] [place] [address] [phone] Pharmacist Internal Medicine 09/30/24 documented as of this encounter
--- OUTSIDE RECORDS SUMMARY | 2025-08-10 16:34 | XMS_ITS | Encounter Summary ---
Author Organization [employer] Address 75 [facility] 7t [place] [address] Care Team Providers Care Casing In Line Feeder Name Role Phone Mary Ellen Ortega MD Primary Care Pro vider Sommer Martinez PharmD Unavailable [phone] Encounter Details Date Type Department Care Team (Late st Contact Info) Description 05/27/2025 Refill [facility] [address] [place], [place] [phone] Mary Ellen Ortega MD 230 [place] [address] Social History Tobacco Use Types Packs/Day Years [...] the past 12 months, has t he [employer] gas, oil or water company threatened to [...] Description 08/16/2025 10:00 AM EDT Medication Management [facility] MEDICINE [address] [place] [address] Sommer Martinez, ElizabethD [address] [place] [address] documented as of this encounter Visit Diagnoses Not on filedocumented in this encounter Additional Health Concerns Assessment Noted Time PHQ-9 Depression Total Score: 11 025 10:50 AM EDT documented as of this encounter Care Teams Casing In Line Feeder Relationship Specialty Start Date End Date Mary Ellen Ortega MD [address] [place] [phone] PCP - General Internal Medicine 03/15/23 Somemr Martinez PharmD [address] [place] [phone] Pharmacist Internal Medicine 09/30/24 documented as of this encounter
--- OUTSIDE RECORDS SUMMARY | 2025-08-10 16:35 | XMS_ITS | Encounter Summary ---
Author Organization [employer] Address [address] [facility] 7t [place] [address] Care Team Providers Care Monument Setter Name Role Phone Mary Ellen Ortega MD Primary Care Pro vider Sommer Martinez PharmD Unavailable [phone] Encounter Details Date Type Department Care Team (Late st Contact Info) Description 08/10/2025 Orders Only GENERIC EXTERNAL DATA DEPARTMENT Provider, Generic External Data Social History Tobacco Use Types Packs/Day Years [...] Medication Management [facility] MEDICINE [address] [place] [address] Sommer Martinez, PharmD [address] [place], [place] [phone] documented as of this encounter Procedures Procedure Name Priority Date/Time Associated Diagnosis Comments URINALYSIS, COMPLETE, WITH REFLEX TO CULTURE Routine 08/10/2025 3:23 PM EDT US RENAL COMPLETE Routine 08/10/2025 12: 59 PM EDT CBC WITH AUTO DIFFERENTIAL Routine 08/10/2025 10:45 AM EDT MAGNESIUM Routine 08/10/2025 10:45 AM EDT LIPASE Routine 08/10/2025 10:45 AM EDT CREATINE KINASE, TOTAL Routine 08/10/2025 10:45 AM EDT HEPATIC FUNCTION PANEL Routine 08/10/2025 10:45 AM EDT BASIC METABOLIC PANEL Routine 08/10/2025 10:45 AM EDT documented in this encounter Results * (ABNORMAL) Urinalysis, Complete, with Reflex to Culture (08/10/2025 3:23 PM EDT) Color Urine Dark Yellow [facility] Appearance Urine Clear [facility] PH 5.5 5.0 - 9.0 [facility] Glucose Urine UA >=1000(A) Negative mg/dL [facility] Urine Blood Negative Negative [facility] Specific [place] - Urine >=1.030(H) 1.005 - 1.025 [facility] Urine Protein Trace Neg-Trace mg/dL [facility] Urine Ketones Trace Negative mg/dL [facility] Nitrite Urine Positive(A) Negative [facility] Leukocyte Esterase Urine Trace(A) Negative [facility] RBC Urine 0-2 0 - 2 /HPF [facility] Urine WBC 21-50(A) 0 - 5 /HPF [facility] Urine Squamous Epithelial Cell 3-5 0 - 2 /HPF [facility] Urine Bacteria 4+ None Seen [facility] Hyaline Casts, Urine 0-2 0 - 2 /LPF [facility] 08/10/2025 3:23 PM EDT 08/10/2025 3:32 PM EDT Narrative [facility] - 08/10/2025 3:42 PM EDT Urine, Clean Catch us Generic External Data Provider LAB URINE ORDERAB LES Final Result [facility] [address] [place], [place] [phone] * US Renal Complete (08/10/2025 12:59 PM EDT) Anatomical Region Laterality Modality Kidney Ultrasound 08/10/2025 12:5 9 PM EDT Narrative 08/10/2025 1:45 PM EDT [address] [address] Ultrasound Report Signed Patient: Radha Nguyen#: [id number] : 1970 Acct:[id number] Age/Sex: 54 / F ADM Date: 08/10/25 Loc: .ED Attending Dr: Ordering Physician: Ailyn Bowen Date of Service: 08/10/25 Procedure(s): US renal BI Accession Number(s): [id number] cc: Mary Ellen Ortega MD; Ailyn Bowen Reason for Exam: flank pain, hx of kidney stones EXAMINATION: US KIDNEY BILATERAL HISTORY: flank pain, hx of kidney stones TECHNIQUE: Real-time grayscale ultrasound imaging of the kidneys was performed and images were reviewed. COMPARISON: Comparison is made with the prior examination dated 12/28/2023. FINDINGS: Right kidney: The right kidney measures 10.6 x 6.6 x 6.0 cm. Renal parenchymal echotexture and thickness are normal. There is an upper pole cyst measuring 2.9 x 2.3 x 2.4 cm. There is a nonobstructing lower pole calculus measuring 5 x 2 x 4 mm. There is no hydronephrosis. Left Kidney: The left kidney measures 11.8 x 6.1 x 4.8 cm. Renal parenchymal echotexture and thickness are normal. There is an upper pole cyst measuring 1.6 x 1.3 x 1.4 cm and a cyst in the interpolar region measuring 1.5 x 1.0 x 1.7 cm. No definite calculi are identified. There is no hydronephrosis. US/US renal BI IMPRESSION: 1. 5 x 2 x 4 mm nonobstructing calculus at the lower pole of the right kidney. 2. Bilateral renal cysts as described. Electronically signed by: Slava Mac MD 08/10/2025 01:42 PM EDT Dictated By: Slava Mac MD Signed By: <Electronically signed by Slava Mac MD in OV> 08/10/25 1342 DD/ 1259 TD/TT: 08/10/25 1318 Picking Supervisor: Procedure Note Donotuseinterpreter, Image - 08/10/2025 [place] [address] Ultrasound Report Signed Patient: Adeola Nguyen R#: [id number] : 1970Acct:[id number] Age/Sex: 54 / FADM Date: 08/10/25 Loc: HO.ED Attending Dr: Ordering Physician: Ailyn Bowen Date of Service: 08/10/25 Procedure(s): US renal BI Accession Number(s): [id number] cc: Mary Ellen Ortega MD; Ailyn Bowen Reason for Exam: flank pain, hx of kidney stones EXAMINATION: US KIDNEY BILATERAL HISTORY: flank pain, hx of kidney stones TECHNIQUE: Real-time grayscale ultrasound imaging of the kidneys was performed and images were reviewed. COMPARISON: Comparison is made with the prior examination dated 12/28/2023. FINDINGS: Right kidney: The right kidney measures 10.6 x 6.6 x 6.0 cm. Renal parenchymal echotexture and thickness are normal. There is an upper pole cyst measuring 2.9 x 2.3 x 2.4 cm. There is a nonobstructing lower pole calculus measuring 5 x 2 x 4 mm. There is no hydronephrosis. Left Kidney: The left kidney measures 11.8 x 6.1 x 4.8 cm. Renal parenchymal echotexture and thickness are normal. There is an upper pole cyst measuring 1.6 x 1.3 x 1.4 cm and a cyst in the interpolar region measuring 1.5 x 1.0 x 1.7 cm. No definite calculi are identified. There is no hydronephrosis. US/US renal BI IMPRESSION: 1. 5 x 2 x 4 mm nonobstructing calculus at the lower pole of the right kidney. 2. Bilateral renal cysts as described. Electronically signed by: Slava Mac MD 08/10/2025 01:42 PM EDT Dictated By: Slava Mac MD Signed By: <Electronically signed by Slava Mac MD in OV> 08/10/25 1342 DD/ 1259 TD/TT: 08/10/25 1318 Picking Supervisor: [facility] External Provider IMG US PROCEDURES Final Result * Lipase (08/10/2025 10:45 AM EDT) Lipase 21 8 - 78 U/L [facility] 08/10/2025 10:4 5 AM EDT 08/10/2025 10:48 AM EDT Generic External Data Provider LAB BLOOD ORDERAB LES Final Result Performing Organization Address [facility] Co de Phone Number [facility] [address] [place] [phone] * Creatine Kinase, Total (08/10/2025 10:45 AM EDT) Creatine Kinase Total 52 26 - 140 U/L [facility] 08/10/2025 10:4 5 AM EDT 08/10/2025 10:48 AM EDT Generic External Data Provider LAB BLOOD ORDERAB LES Final Result Performing Organization Address [facility] Co de Phone Number [facility] [address] [place] [phone] * Magnesium (08/10/2025 10:45 AM EDT) Magnesium 1.7 1.6 - 2.6 mg/dL [facility] 08/10/2025 10:4 5 AM EDT 08/10/2025 10:48 AM EDT Generic External Data Provider LAB BLOOD ORDERAB LES Final Result Performing Organization Address [facility] Co de Phone Number [facility] [address] [place] [phone] * (ABNORMAL) Basic Metabolic Panel (08/10/2025 10:45 AM EDT) Sodium 142 135 - 145 mmol/L [facility] Potassium 3.1(L) 3.3 - 5.1 mmol/L [facility] Chloride 105 96 - 108 mmol/L [facility] Carbon Dioxide 25 22 - 29 mmol/L [facility] Anion Gap 15 12 - 20 [facility] Urea Nitrogen (BUN) 9 9 - 16 mg/dL [facility] Creatinine, Serum 0.74 0.5 - 1.4 mg/dL [facility] Creatinine Clr Calc Pharmacy 85.6 [facility] Comment:Provided height and weight: 172.72 cm,71.668 kg.eGFR (calculated from the MDRD study equation) and eCrCl(calculated from the Cockcroft-Gault equation) are based ondifferent parameters and may not yield comparable results.If eCrCl result is absurd, please check patient'sheight/weight. Estimated Glomerular Filt Rate >60 [facility] Comment:Chronic Kidney Disea se: Estimated GFR < 60 mL/min/1.49m4Zrafro Kidney Disease: Estimated GFR < 15 mL/min/1.73m2 Glucose 168(H) 60 - 115 mg/dL [facility] Calcium 9.6 8.4 - 10.2 mg/dL [facility] 08/10/2025 10:4 5 AM EDT 08/10/2025 10:48 AM EDT us Generic External Data Provider LAB BLOOD ORDERAB LES Final Result [facility] [address] [place], [place] [phone] * (ABNORMAL) Hepatic Function Panel (08/10/2025 10:45 AM EDT) Bilirubin, Total 0.8 0.0 - 1.0 mg/dL [facility] Bilirubin, Direct 0.3 0.0 - 0.5 mg/dL [facility] Aspartate Amino Transferase 29 5 - 31 U/L [facility] Alanine Aminotransferase 33(H) 0 - 31 U/L [facility] Total Protein 7.8 6.5 - 8.0 g/dL [facility] Albumin Level 4.8 3.5 - 5.0 g/dL [facility] Alkaline Phosphatase 141(H) 39 - 117 U/L [facility] 08/10/2025 10:4 5 AM EDT 08/10/2025 10:48 AM EDT us Generic External Data Provider LAB BLOOD ORDERAB LES Final Result [facility] [address] [place] [phone] * CBC auto differential (08/10/2025 10:45 AM EDT) White Blood Count 10.7 4.8 - 10.8 X10*3/uL [facility] Red Blood Count 5.45 4.20 - 5.50 X10*6/uL [facility] Hemoglobin 15.1 12.0 - 16.0 g/dl [facility] Hematocrit 46.6 37.0 - 47.0 % [facility] Mean Corpuscular Volume 85.5 80.0 - 98.0 fL [facility] Mean Corpuscular Hemoglobin 27.7 27.0 - 33.0 pg [facility] Mean Corpuscular HGB Conc 32.4 31.0 - 35.0 g/dl [facility] Red Cell Distribution Width 12.4 11.0 - 16.0 % [facility] Platelet Count 340 160 - 400 X10*3/uL [facility] Mean Platelet Volume 9.5 9.4 - 12.3 fL [facility] Neutrophils Percent Auto 61.4 45 - 73 % [facility] Imm Gran Pct Auto 0.3 0.0 - 0.4 % [facility] Lymphocytes Percent Auto 28.8 20 - 40 % [facility] Monocytes Percent Auto 6.5 2 - 11 % [facility] Eosinophils Percent Auto 2.4 0 - 4 % [facility] Basophils Percent Auto 0.6 0 - 2 % [facility] NRBC Pct Auto 0.0 0.0 - 0.2 /100WBC [facility] Neutrophils Absolute Auto 6.6 2.0 - 8.3 x10*3/uL [facility] Imm Gran Abs Auto 0.03 0.00 - 0.03 X10*3/uL [facility] Lymphocytes Absolute Auto 3.1 1.2 - 4.9 X10*3/uL [facility] Monocytes Absolute Auto 0.7 0.1 - 1.2 X10*3/uL [facility] Eosinophils Absolute Auto 0.3 0.0 - 0.4 X10*3/uL [facility] Basophils Absolute Auto 0.1 0.0 - 0.2 X10*3/uL [facility] NRBC Abs Auto 0.000 0.0 - 0.012 X10*3/uL [facility] 08/10/2025 10:4 5 AM EDT 08/10/2025 10:48 AM EDT us Generic External Data Provider LAB BLOOD ORDERAB LES Final Result Performing Organization Address City/State/[facility] Co de Phone Number [facility] [address] [place] [address] [phone] documented in this encounter Visit Diagnoses Not on filedocumented in this encounter Additional Health Concerns Assessment Noted Time PHQ-9 Depression Total Score: 11 025 10:50 AM EDT documented as of this encounter Care Teams Monument Setter Relationship Specialty Start Date End Date Mary Ellen Ortega MD [address] [place] [address] PCP - General Internal Medicine 03/15/23 Sommer Martinez PharmD [address] [place] [address] Pharmacist Internal Medicine 09/30/24 documented as of this encounter
--- OUTSIDE RECORDS SUMMARY | 2025-08-10 16:35 | XMS_ITS | Clinical Summary ---
Author Organization [employer] Address [address] [place] [address] 7[address] [place] [address] Care Team Providers Care Oxygen System Tester Name Role Phone Mary Ellen Ortega MD Primary Care Pro vider Sommer Martinez PharmD Unavailable [phone] Allergies Active Allergy Reactions Criticality Noted Date [...] mouth in the morning. Active sodium chloride ([place]) 0.65 % nasal sprayIndicatio ns:Tenderness over maxillary [...] by mouth at bedtime. Active Continuous Glucose Braille Proofreader (FreeStyle Taco 3 [place]) device 1 each Once per day. Use [...] complication, with long-term current use of insulin (HCC) INJECT 10 UNITS SUBCUTANEOUSLY THREE TIMES DAILY [...] 025 Active insulin pen needle (TechLite Pen [place]) 32G x 4 mm [facility] USE DIRECTED FOUR TIMES DAILY 100 each [...] mg in the evening. Active sodium chloride ([place]) 0.65 % nasal spray Administer 1 spray [...] mouth at bedtime. 90 tablet 025 Active aspirin (Aspirin Low [...] BY MOUTH EVERY MORNING 90 tablet 025 09/12/ 2025 Discontinued(R eorder (will not trigger notification to Pharmacy)) dapagliflozin (Farxiga) 10 MG TAKE 1 TABLET BY MOUTH EVERY MORNING 90 tablet 025 2024 Discontinued(R eorder (will not trigger notification to Pharmacy)) dextromethorph an 15 MG/5ML syrup Take 10 [...] in process for implant Exchange -pt requesting CALLIOPE [employer]ER info-requested to nurse staff to help w [...] recurrent major depressive disorder, without psychotic features (CMS/HCC) 03/15/2023 Assessment & Plan (07/29/2024 10:18 AM [...] of sxs (family interactions, her job as [employer] and medical condition). Radha is engaged with psychiatry services with [facility]; reports medication is working and helping to decrease sxs. Still waiting for OP individual therapy (currently on wait list). During today's consult, clinician engaged patient with active, reflective listening. Reviewed and assessed for risk, current stressors and protective factors. Pt agreed to follow-up with [facility] regarding referral placed. clinician will be available [...] protective factors. Pt agreed to follow-up with [facility] regarding referral placed (I printed out letter w agency information). clinician will be available during next medical appt if needed. Pt will be referred to to assist with food insecurity. Assessment & [...] and housing. Radha has recently moved to [place] after her . She's currently taking care [...] was f w psychiatrist and psychtx in [place] Reports is taking all meds now except her adderall x last 3 months Reports to be stable -denies SI -referred today to who evaluated pt and will refer for outpt psychotx and x pharmacology clinic here -explained to pt that will hold x now on adderall referral until f w specialist -pt agreed w plan -referred today to x housing insecurity Severe anxiety 03/15/2023 Assessment [...] of sxs (family interactions, her job as [employer] and medical condition). Radha is engaged with [...] and housing. Radha has recently moved to [place] after her . She's currently taking care [...] test to be done this week -colonoscopy 2016: neg per pt but was told to [...] report found -but states normal ?---referred already -[place] Darleen today to check status of Referral -colonoscopy [...] and no indication for fibrates -referred to elementary school librarian and chef broiler or fry at previous visit -[facility] will check [...] needed if LDL > 70 -referred to elementary school librarian and chef broiler or fry at previous visit -[facility] El will check [...] needed if LDL > 70 -referred to elementary school librarian and chef broiler or fry at previous visit -[facility] GrantA will check status of referrals -will repeat [...] statins -low dose lipitor -referred today to elementary school librarian and chef broiler or fry -will repeat DM labs and fasting lipids [...] recent one from her records Hx of AKA (above knee amputation), left ([facility] ) 03/05/2023 Assessment & Plan (07/25/2023 7:11 PM EDT): Per pt hx of severe Raynauds c/ b left AKA ,used crutches and wheelchair x ambulation ----pt just received this month new crutches and new wheelchair -continue ASA,plavix -pt requesting electric wheelchair -referred for PT eval Assessment & Plan (05/31/2023 10:06 PM EDT): Per pt hx of severe Raynauds c/ b left DEEPIKA ,used crutches and wheelchair x ambulation ----pt just received this month new crutches and new wheelchair -continue ASA,plavix Assessment & Plan (05/01/2023 7:11 PM EDT): Per pt hx of severe Raynauds c/ b left DEEPIKA ,used crutches and wheelchair x ambulation ----pt just received this month new crutches and new wheelchair -continue ASA,plavix -pt requesting adult diapers --did written order and gave to nurse staff Assessment & Plan (03/15/2023 9:20 PM EDT): Per pt hx of severe Raynauds c/ b left DEEPIKA ,used crutches and wheelchair x ambulation -currently [...] and housing. Radha has recently moved to [place] after her . She's currently taking care [...] protective factors. Pt agreed to follow-up with [facility] regarding referral placed (I printed out letter [...] and housing. Radha has recently moved to [place] after her . She's currently taking care [...] and exercise,discussed healthy life style -referred x casino operations supervisor Assessment & Plan (05/31/2023 10:05 PM EDT): Advised pt to improve diet and exercise,discussed healthy life style -referred today x casino operations supervisor Assessment & Plan (05/01/2023 7:17 PM EDT): Advised pt to improve diet and exercise,discussed healthy life style -will discuss about casino operations supervisor referral at next visit Skin lesion 05/01/2023 07/25/2023 Assessment & Plan (05/31/2023 10:09 PM EDT): Reports chronic skin lesions in scalp and palms using chronically topical steroids saw data entry coordinator s/p resection of skin tags but has mils surrounding erythema -mupirocin TID x 7 days Assessment & Plan (05/01/2023 7:19 PM EDT): Reports chronic skin lesions in scalp and palms using chronically topical steroids -triamcinolone -referred to data entry coordinator today for further eval Depression 03/15/2023 03/15/2023 Moderate persistent asthma 03/05/2023 0 03/15/2023 Encounters * This document contains information received from the source organization and may not represent a complete record from that organization. Date Type Department Care Team Description 08/10/2025 Orders Only GENERIC EXTERNAL DATA DEPARTMENT Provider, Generic External Data 07/29/2025 Travel 07/26/2025 Refill [facility] [address] [place] [address] Mary Ellen Ortega MD 07/23/2025 Refill [facility] [address] [place], [place] [phone] Mary Ellen Ortega MD 07/06/2025 1:45 PM EDT Office Visit [facility] [address], [place] [phone] Mary Ellen Ortega MD Sore throat (Primary Dx); Type 2 diabetes mellitus with other circulatory complication, with long-term current use of insulin ([facility]); Nasal congestion; Lung nodule; Hypertension, unspecified type; Health care maintenance; Severe episode of recurrent major depressive disorder, without psychotic features ([facility]); ALBERTINA (obstructive sleep apnea); Upper respiratory tract infection, unspecified type 07/06/2025 Travel 06/01/2025 Telephone [facility] [address] [place], [place] [phone] Mary Ellen Ortega MD Durable Medical Equipment 05/27/2025 Refill [facility] [address], [place] [phone] Mary Ellen Rosario MD 05/27/2025 Refill [facility] [address] [place], [place] [phone] Mary Ellen Ortega MD 05/27/2025 Orders Only [facility] External Provider, [facility] 05/26/2025 Refill [facility] [address] [place] [address] Mary Ellen Rosario MD 05/26/2025 Refill [facility] [address] [place] [address] Mary Ellen Ortega MD 05/21/2025 Refill [facility] [address] [place] [address] Sommer Martinez, ElizabethD 05/18/2025 3:00 PM EDT Office Visit [facility] [address] [place] [phone] Flavia Weber Edentulous maxilla (Primary Dx); Partially edentulous mandible, unspecified edentulism class 05/17/2025 Telephone [facility] [address] [place] [address] Mary Ellen Ortega MD Durable Medical Equipment 05/13/2025 9:00 AM EDT Office Visit [facility] [address] [place] [phone] Mary Ellen Ortega MD Type 2 diabetes mellitus with other circulatory complication, with long-term current use of insulin ([facility]) (Primary Dx); Chronic obstructive pulmonary disease, unspecified [...] level; Tobacco use 05/13/2025 Travel 05/12/2025 Telephone [facility] [address] [place], [place] [phone] Mary Ellen Ortega MD Chart Prep from Last 3 Months Immunizations Immunization Administration [...] 08/16/2025 10:00 AM EDT Medication Management [facility] [address] [place] [address] Sommer Martinez, PharmD [address] [place] [address] Health Maintenance Due Date Last Done Comments [...] Screening 05/18/2026 05/18/2025 Eye Exam 03/15/2027 03/15/2025, 0503/2025, 03/15/2025, Additional history exists Cervical Cancer Screening [...] COMPLETE Routine 08/10/2025 12: 59 PM EDT LIPASE Routine 08/10/2025 10:45 AM EDT CREATINE KINASE, TOTAL Routine 10:45 AM EDT MAGNESIUM Routine 08/10/2025 10:45 AM EDT BASIC METABOLIC PANEL Routine 08/10/2025 10:45 AM EDT HEPATIC FUNCTION PANEL Routine 10:45 AM EDT CBC WITH AUTO DIFFERENTIAL Routine 08/10/2025 10:[address] LUMBAR SPINE WO CONTRAST Routine 08/03/2025 [...] with long-term current use of insulin (CMS/HCC) XR CERVICAL SPINE 4V Routine 05/27/2025 10:10 [...] with long-term current use of insulin (CMS/HCC) POCT GLUCOSE Routine 05/13/2025 9:22 AM EDT Type 2 diabetes mellitus with other circulatory complication, with long-term current use of insulin (CMS/HCC) BI MAMMOGRAM DIAGNOSTIC TOMOSYNTHESIS BILATERAL Routine 09/14/2024 [...] Recently Relevant to Health Maintenance Results * (ABNORMAL) Urinalysis, Complete, with Reflex to Culture (08/10/2025 3:23 PM EDT) Color Urine Dark Yellow [facility] Appearance Urine Clear [facility] PH 5.5 5.0 - 9.0 [facility] Glucose Urine UA >=1000(A) Negative mg/dL [facility] Urine Blood Negative Negative [facility] Specific [place] - Urine >=1.030(H) 1.005 - 1.025 [facility] Urine Protein Trace Neg-Trace mg/dL [facility] Urine Ketones Trace Negative mg/dL [facility] Nitrite Urine Positive(A) Negative [facility] Leukocyte Esterase Urine Trace(A) Negative [facility] RBC Urine 0-2 0 - 2 /HPF [facility] Urine WBC 21-50(A) 0 - 5 /HPF [facility] Urine Squamous Epithelial Cell 3-5 0 - 2 /HPF [facility] Urine Bacteria 4+ None Seen [facility] Hyaline Casts, Urine 0-2 0 - 2 /LPF [facility] 08/10/2025 3:23 PM EDT 08/10/2025 3:32 PM EDT Narrative [facility] - 08/10/2025 3:42 PM EDT Urine, Clean Catch us Generic External Data Provider LAB URINE ORDERAB LES Final Result [facility] [address] [place] [phone] * US Renal Complete (08/10/2025 12:59 PM EDT) Anatomical Region Laterality Modality Kidney Ultrasound 08/10/2025 12:5 9 PM EDT Narrative 08/10/2025 1:45 PM EDT [address] [address] Ultrasound Report Signed Patient: Radha Nguyen#: [id number] : 1970 Acct:[id number] Age/Sex: 54 / F ADM Date: 08/10/25 Loc: HO.ED Attending Dr: Ordering Physician: Ailyn Bowen Date of Service: 08/10/25 Procedure(s): US renal BI Accession Number(s): [id number] cc: Mary Ellen Ortega MD; Ailyn Bowen [...] 08/10/25 1342 DD/ 1259 TD/TT: 08/10/25 1318 Materials Planner/Production Planner: Procedure Note Donotuseinterpreter, Image - 08/10/2025 [place] [address] Ultrasound Report Signed Patient: Adeola Nguyen R#: [id number] : 1970Acct:[id number] Age/Sex: 54 / FADM Date: 08/10/25 Loc: .ED Attending Dr: Ordering Physician: Ailyn Bowen Date of Service: 08/10/25 Procedure(s): US renal BI Accession Number(s): [id number] cc: Mary Ellen Ortega MD; Ailyn Bowen [...] Slava Mac MD 08/10/2025 01:42 PM EDT RP Dictated By: Slava Mac MD Signed By: <Electronically signed by Slava Mac MD in OV> 08/10/25 1342 DD/ 1259 TD/TT: 08/10/25 1318 Materials Planner/Production Planner: us [facility] External Provider IMG US PROCEDURES Final Result * CBC auto differential (08/10/2025 10:45 AM EDT) White Blood Count 10.7 4.8 - 10.8 X10*3/uL [facility] Red Blood Count 5.45 4.20 - 5.50 X10*6/uL [facility] Hemoglobin 15.1 12.0 - 16.0 g/dl [facility] Hematocrit 46.6 37.0 - 47.0 % [facility] Mean Corpuscular Volume 85.5 80.0 - 98.0 fL [facility] Mean Corpuscular Hemoglobin 27.7 27.0 - 33.0 pg [facility] Mean Corpuscular HGB Conc 32.4 31.0 - 35.0 g/dl [facility] Red Cell Distribution Width 12.4 11.0 - 16.0 % [facility] Platelet Count 340 160 - 400 X10*3/uL [facility] Mean Platelet Volume 9.5 9.4 - 12.3 fL [facility] Neutrophils Percent Auto 61.4 45 - 73 % [facility] Imm Gran Pct Auto 0.3 0.0 - 0.4 % [facility] Lymphocytes Percent Auto 28.8 20 - 40 % [facility] Monocytes Percent Auto 6.5 2 - 11 % [facility] Eosinophils Percent Auto 2.4 0 - 4 % [facility] Basophils Percent Auto 0.6 0 - 2 % [facility] NRBC Pct Auto 0.0 0.0 - 0.2 /100WBC [facility] Neutrophils Absolute Auto 6.6 2.0 - 8.3 x10*3/uL [facility] Imm Gran Abs Auto 0.03 0.00 - 0.03 X10*3/uL [facility] Lymphocytes Absolute Auto 3.1 1.2 - 4.9 X10*3/uL [facility] Monocytes Absolute Auto 0.7 0.1 - 1.2 X10*3/uL [facility] Eosinophils Absolute Auto 0.3 0.0 - 0.4 X10*3/uL [facility] Basophils Absolute Auto 0.1 0.0 - 0.2 X10*3/uL [facility] NRBC Abs Auto 0.000 0.0 - 0.012 X10*3/uL [facility] 08/10/2025 10:4 5 AM EDT 08/10/2025 10:48 AM EDT Generic External Data Provider LAB BLOOD ORDERAB LES Final Result Performing Organization Address City/[facility]/ZIP Co de Phone Number [facility] [address] [place] [phone] * Magnesium (08/10/2025 10:45 AM EDT) Magnesium 1.7 1.6 - 2.6 mg/dL [facility] 08/10/2025 10:4 5 AM EDT 08/10/2025 10:48 AM EDT us Generic External Data Provider LAB BLOOD ORDERAB LES Final Result Performing Organization Address City/[facility]/ZIP Co de Phone Number [facility] [address] [place] [phone] * Lipase (08/10/2025 10:45 AM EDT) Lipase 21 8 - 78 U/L [facility] 08/10/2025 10:4 5 AM EDT 08/10/2025 10:48 AM EDT us Generic External Data Provider LAB BLOOD ORDERAB LES Final Result Performing Organization Address [facility]/ZIP Co de Phone Number [facility] [address] [place] [phone] * Creatine Kinase, Total (08/10/2025 10:45 AM EDT) Pathologist [facility] Creatine Kinase Total 52 26 - 140 U/L [facility] 08/10/2025 10:4 5 AM EDT 08/10/2025 10:48 AM EDT Generic External Data Provider LAB BLOOD ORDERAB LES Final Result Performing Organization Address [facility] de Phone Number [facility] [address] [place] [phone] * (ABNORMAL) Hepatic Function Panel (08/10/2025 10:45 AM EDT) [facility] Bilirubin, Total 0.8 0.0 - 1.0 mg/dL [facility] Bilirubin, Direct 0.3 0.0 - 0.5 mg/dL [facility] Aspartate Amino Transferase 29 5 - 31 U/L [facility] Alanine Aminotransferase 33(H) 0 - 31 U/L [facility] Total Protein 7.8 6.5 - 8.0 g/dL [facility] Albumin Level 4.8 3.5 - 5.0 g/dL [facility] Alkaline Phosphatase 141(H) 39 - 117 U/L [facility] 08/10/2025 10:4 5 AM EDT 08/10/2025 10:48 AM EDT Generic External Data Provider LAB BLOOD ORDERAB LES Final Result Performing Organization Address [facility] Co de Phone Number [facility] [address] [place] [phone] * (ABNORMAL) Basic Metabolic Panel (08/10/2025 10:45 AM EDT) Sodium 142 135 - 145 mmol/L [facility] Potassium 3.1(L) 3.3 - 5.1 mmol/L [facility] Chloride 105 96 - 108 mmol/L [facility] Carbon Dioxide 25 22 - 29 mmol/L [facility] Anion Gap 15 12 - 20 [facility] Urea Nitrogen (BUN) 9 9 - 16 mg/dL [facility] Creatinine, Serum 0.74 0.5 - 1.4 mg/dL [facility] Creatinine Clr Calc Pharmacy 85.6 [facility] Comment:Provided height and weight: 172.72 cm,71.668 kg.eGFR (calculated from the MDRD study equation) and eCrCl(calculated from the Cockcroft-Gault equation) are based ondifferent parameters and may not yield comparable results.If eCrCl result is absurd, please check patient'sheight/weight. Estimated Glomerular Filt Rate >60 [facility] Comment:Chronic Kidney Disea se: Estimated GFR < 60 mL/min/1.15l1Xiqwlc Kidney Disease: Estimated GFR < 15 mL/min/1.73m2 Glucose 168(H) 60 - 115 mg/dL [facility] Calcium 9.6 8.4 - 10.2 mg/dL [facility] 08/10/2025 10:4 5 AM EDT 08/10/2025 10:48 AM EDT us Generic External Data Provider LAB BLOOD ORDERAB LES Final Result [facility] [address] [place] [phone] * CT Lumbar Spine w/o Contrast (08/03/2025 9:29 AM EDT) Anatomical Region Laterality Modality Spine, L-spine Computed Tomogra phy 08/03/2025 9:29 AM EDT Narrative 08/03/2025 10:04 AM EDT [address] [address] [address] Scan Report Signed Patient: Radha Nguyen#: [id number] : 1970 Acct:[id number] Age/Sex: 54 / F ADM Date: 08/03/25 Loc: YOLAMarcoKSENIA Attending Dr: Mary Ellen Orellana MD Ordering Physician: Nhi Wisdom Date of Service: 08/03/25 Procedure(s): CT lumbar spine wo IV con Accession Number(s): [id number] cc: Nhi Wisdom; Mary Ellen Ortega MD Report Number: [id number]: Total DLP = 690.00 mGy-cm Reason for [...] atherosclerotic calcifications are present. There are 5 afd-ejh-jvtzsxe lumbar segments. T12-L1: There is no disc [...] 08/03/25 1001 DD/ 0929 TD/TT: 08/03/25 0942 Materials Planner/Production Planner: Procedure Note Donotuseinterpreter, Image - 08/03/[address] [place] [address] [address] Scan Report Signed Patient: Adeola Nguyen R#: [id number] : 1970Acct:[id number] Age/Sex: 54 / FADM Date: 08/03/25 Loc: HO.CARD Attending Dr: Mary Ellen Orellana MD Ordering Physician: Nhi Wisdom Date of Service: 08/03/25 Procedure(s): CT lumbar spine wo IV con Accession Number(s): [id number] cc: Nhi Wisdom; Mary Ellen Ortega MD Report Number: [id number]: Total DLP = 690.00 mGy-cm Reason for [...] atherosclerotic calcifications are present. There are 5 pmd-rqn-iielotd lumbar segments. T12-L1: There is no disc [...] 08/03/25 1001 DD/ 0929 TD/TT: 08/03/25 0942 Materials Planner/Production Planner: [facility] External Provider IMG CT PROCEDURES Final Result * POCT Rapid Influenza B BADILLO ID NOW (07/06/2025 2:25 PM EDT) [facility] Influenza B Negative Negative, Indeterminate [facility] Swab 07/06/2025 2:25 PM EDT Mary Ellen Orellana MD POINT OF CARE ANDRÉS T ENTER/EDIT ORDERABLES Final Result Performing Organization Address [facility] Co de Phone Number [facility] [address] [place] [phone] * POCT Rapid Influenza A BADILLO ID NOW (07/06/2025 2:25 PM EDT) [facility] Influenza A Negative Negative, Indeterminate [facility] Swab 07/06/2025 2:25 PM EDT Mary Ellen Orellana MD POINT OF CARE ANDRÉS T ENTER/EDIT ORDERABLES Final Result Performing Organization Address [facility] Co de Phone Number [facility] [address] [place] [phone] * POCT Rapid Covid-19 BinaxNOW (07/06/2025 2:25 PM EDT) [facility] Rapid COVID Ag Negative Swab 07/06/2025 2:25 PM EDT Mary Ellen Orellana MD POINT [...] AM EDT Narrative 05/27/2025 10:54 AM EDT [place] [address] XRay Report Signed Patient: Radha Nguyen#: [id number] : 1970 Acct:[id number] Age/Sex: 54 / F ADM Date: 05/27/25 Loc: HOELISE Attending Dr: Nhi YANEZ Ordering Physician: Nhi Wisdom Date of Service: 05/27/25 Procedure(s): XR cervical spine 4V Accession Number(s): [id number] cc: Nhi Wisdom; Mary Ellen Ortega MD [...] Sebastián Silva MD 05/27/2025 10:51 AM EDT Dictated By: Sebastián Silva MD Signed By: <Electronically signed by Sebastián Silva MD in OV> 05/27/25 1051 DD/ 1010 TD/TT: 05/27/25 1037 Materials Planner/Production Planner: Procedure Note Donotuseinterpreter, Image - 05/27/2025 [place] [address] XRay Report Signed Patient: Adeola Nguyen R#: [id number] : 1970Acct:[id number] Age/Sex: 54 / FADM Date: 05/27/25 Loc: EMMY Attending Dr: Nhi YANEZ Ordering Physician: Nhi Wisdom Date of Service: 05/27/25 Procedure(s): XR cervical spine 4V Accession Number(s): [id number] cc: Nhi Wisdom; Mary Ellen Ortega MD [...] Sebastián Silva MD 05/27/2025 10:51 AM EDT Dictated By: Sebastián Silva MD Signed By: <Electronically signed by Sebastián Silva MD in OV> 05/27/25 1051 DD/ 1010 TD/TT: 05/27/25 1037 Materials Planner/Production Planner: [facility] External Provider IMG XR PROCEDURES Edited Result - Final * XR Lumbar Spine Complete 4+ Views (05/27/2025 10:10 AM EDT) Anatomical Region Laterality Modality Spine, L-spine Radiographic Emmy ging 05/27/2025 10:1 0 AM EDT Narrative 05/27/2025 10:51 AM EDT [place] [address] XRay Report Signed Patient: Radha Nguyen#: [id number] : 1970 Acct:[id number] Age/Sex: 54 / F ADM Date: 05/27/25 Loc: EMMY Attending Dr: Nhi YANEZ Ordering Physician: Nhi Wisdom Date of Service: 05/27/25 Procedure(s): XR lumbar spine 4V min Accession Number(s): [id number] cc: Nhi Wisdom; Mary Ellen Ortega MD [...] 05/27/25 1048 DD/ 1010 TD/TT: 05/27/25 1037 Materials Planner/Production Planner: Procedure Note Donotuseinterpreter, Image - 05/27/2025 [place] [address] XRay Report Signed Patient: Adeola Nguyen R#: [id number] : 1970Acct:[id number] Age/Sex: 54 / FADM Date: 05/27/25 Loc: EMMY Attending Dr: Nhi YANEZ Ordering Physician: Nhi Wisdom Date of Service: 05/27/25 Procedure(s): XR lumbar spine 4V min Accession Number(s): [id number] cc: Nhi Wisdom; Mary Ellen Ortega MD [...] 05/27/25 1048 DD/ 1010 TD/TT: 05/27/25 1037 Materials Planner/Production Planner: [facility] External Provider IMG XR PROCEDURES Edited Result - Final * (ABNORMAL) POCT HGB A1C (05/13/2025 9:22 AM EDT) Hemoglobin A1C 7.6(A) 4.0 - 5.7 % QC Media Lot # [id number] Lot# Expiration Date Blood 05/13/2025 9:22 AM EDT Mary Ellen Orellana MD POINT OF CARE ANDRÉS T ENTER/EDIT ORDERABLES Final Result * BI Mammogram Diagnostic Tomosynthesis Bilateral (09/14/2024 11:00 AM EST) Anatomical Region Laterality Modality Breast Bilateral Mammography 09/14/2024 11:0 0 AM EST Narrative 09/14/2024 12:16 PM EST [facility] [address] [place] [address] Mammography Report Signed Patient: Radha Nguyen#: [id number] : 1970 Acct:[id number] Age/Sex: 54 / F ADM Date: 09/14/24 Loc: HO.MAMMO Attending Dr: Mary Ellen Orellana MD Ordering Physician: Mary Ellen Ortega MD Re sults: 2Benign Findings Date of Service: 09/14/24 Follow Up: 1 Year From [facility] ina Mammogram Procedure(s): MM tomosynthesis diagnostic BI Accession Number(s): [id number] cc: Mary Ellen Ortega MD EXAMINATION: MM [...] by: Andreas Wall MD 09/14/2024 12:13 PM [facility] Dictated By: Andreas Wall MD Signed By: <Electronically signed by Andreas Wall MD in OV> 09/14/24 1213 DD/ 1100 TD/TT: 09/14/24 1137 Materials Planner/Production Planner: Procedure Note Donotuseinterpreter, Image - 09/14/2024 [facility] [address] [place] [address] Mammography Report Signed Patient: Adeola Nguyen R#: [id number] : 1970Acct:[id number] Age/Sex: 54 / FADM Date: 09/14/24 Loc: HO.MAMMO Attending Dr: Mary Ellen Orellana MD Ordering Physician: Mary Ellen Ortega sults: 2Benign Findings Date of Service: 09/14/24Follow Up: 1 Year From Orig ina Mammogram Procedure(s): MM tomosynthesis diagnostic BI Accession Number(s): [id number] cc: Mary Ellen Ortega MD EXAMINATION: MM [...] by: Andreas Wall MD 09/14/2024 12:13 PM [facility] Dictated By: Andreas Wall MD Signed By: <Electronically signed by Andreas Wall MD in OV> 09/14/24 1213 DD/ 1100 TD/TT: 09/14/24 1137 Materials Planner/Production Planner: us Mary Ellen Orellana MD IM BI PROCEDURES Edited Result - Final * Albumin, Random Urine W/Creatinine (05/07/2024 3:30 PM EDT) Creatinine, Urine 298.37 mg/dL [facility] Microalbumin Urine 41.0 mg/L [facility] Microalbum Creatinine Ratio Ur 13.7 <30 ug/mg cr [facility] Comment:Albumin/Creatinine R atio Reference Ranges: Normal: < 30 ug/mg creatinine Microalbuminuria: 30 - 300 ug/mg creatinineClinical Albuminuria: > 300 ug/mg creatinine 05/07/2024 3:30 PM EDT 05/07/2024 6:15 PM EDT us Mary Ellen Orellana MD LAB URINE ORDERAB LES Final Result Performing Organization Address [facility] Co de Phone Number [facility] [address] [place] [phone] * (ABNORMAL) Lipid Panel, Standard (05/04/2024 9:51 AM EDT) Triglycerides 230(H) <150 mg/dL [facility] Comment:Desirable Triglyceri de: less than 150 mg/dLBorderline High Triglyceride 150-199 mg/dLHigh Triglyceride: 200-499 mg/dLVery High Triglyceride: greater than or equal to 5OO mg/dL Cholesterol 142 <200 mg/dL [facility] Comment:Desirable Cholestero l: less than 200 mg/dLBorderline High Cholesterol: 200-239 mg/dLHigh Cholesterol: greater than 239 mg/dL LDL Cholesterol Calculated 60 <100 mg/dL [facility] Comment:Desirable LDL: less than 100 mg/dLNear Optimal/Above Optimal LDL: 110- 129 mg/dLBorderline High LDL: 130-159 mg/dLHigh LDL: 160-189 mg/dLVery High LDL: greater than or equal to 190 mg/dL HDL Cholesterol 36(L) >40 mg/dL [facility] Comment:Desirable HDL: great er than 40 mg/dL Note: This HDL assay may give artificially low results in patients with liver disease. Blood Venous blood specimen / Unknown 05/04/2024 9:51 AM EDT 05/04/2024 12:13 PM EDT us Mary Ellen Orellana MD LAB BLOOD ORDERAB LES Final Result Performing Organization Address City/[facility]/ZIP Co de Phone Number [facility] [address] [place] [phone] * HPV mRNA E6/E7 w/Reflex to HPV Genotypes 16, 18/45 (04/07/2024 9:47 AM EDT) HPV nRNA E6/E7 Not Detected Not Detected [facility] Comment:Methodology: Transcr iption-Mediated AmplificationThis assay detects E6/E7 viral messenger RNA (mRNA) from 14high-risk HPV types (16,18,31,33,35,39,45,51,52,56,58,59,66,68).Cervical sources are required for HPV testing.If a vaginal source from a patient who has had atotal hysterectomy with removal of cervix wassubmitted, please contact the testing laboratoryfor alternative testing options.For additional information, please refer tohttp://education.[employer]/faq/BVH680f1(This link if provided for information/educational purposes only.)THIS TEST WAS PERFORMED AT:[facility] [place] [phone] BAE MD HPV mRNA E6/E7 TNP [facility] HPV 16 RNA [facility] HPV 18/45 RNA [facility] 04/07/2024 9:47 AM EDT 04/08/2024 10:30 AM EDT Mary Ellen Orellana MD LAB CYTOLOGY HOMA FLOYD Final Result [facility] [address] [place] [phone] * Pap Smear (04/07/2024 9:47 AM EDT) Swab Cervix uteri structure / Unknown 04/07/2024 9:47 AM EDT 04/08/2024 10:30 AM EDT Narrative [facility] - 04/29/2024 9:28 PM EDT ----- ------- Name: Radha Nguyen Age/Sex: 53/F : 1970 Unit#: [id number] Attend Dr: Mary Ellen Ortega MD Re04/07/24 Status: DEP [facility]: ----- ------- SPEC : [id number] RECD: 04/08/24-0 STATUS: [facility] NUM: [id number] ANAID: 04/07/24-[address] [facility] [address]: [facility] ALEGRIA [facility] ENTERED: 04/08/24-1400 SP TYPE: Pap Smr AVEL DR: ORDERED: Pap Smear THIS IS A [...] 59, 66, 68) HPV testing performed by [facility], [place], [place]. See reference laboratory portion of the EMR for entire report. Note: 04/29 This case is corrected. The results for HPV 16/18/45 are deleted because they were not performed. Final diagnosis remains the same. Clinical Information LMP: Postmenopausal Previous PAP test: Postmenopausal bleeding, Unknown findings Material Received ThinPrep-Cervical ----- ------- Signed (signature on file) Natalia Luke MD 04/29/248 ----- ------- END OF REPORT us Carlton Alegria [facility] CYTOLOGY ORDERABLES F inal Result [facility] [address] [place] [phone] * Hepatitis C Antibody with Reflex to HCV, RNA, Quantitative, Real-Time PCR (03/08/2023 9:31 AM EDT) Hepatitis C Antibody NON-REACT SVETLANA NON-REACT SVETLANA [facility] Index 0.07 <1.00 [facility] Comment: HCV antibody was non-reactive. There is no laboratory evidence of HCV infection. In most cases, no further action is required. However, if recent HCV exposure is suspected, a test for HCV RNA (test code 37736) is suggested. For additional information please refer to http://education.[employer]/faq/TQL43w8 (This link is being provided for informational/ educational purposes only.) Blood Venous blood specimen / Unknown 03/08/2023 9:31 AM EDT 03/08/2023 9:32 AM EDT Narrative [facility] - 03/08/2023 8:49 PM EDT FASTING:YES FASTING: YES Michelle Gould MD LAB BLOOD ORDERABLES Final Result [facility] [address], [place] [address] [facility] [address] [place] [address] * HIV-1/2 Antigen and Antibodies, Fourth Generation, with Reflexes (03/08/2023 9:31 AM EDT) HIV Antigen/Antibody, 4th Generation NON-REAC TIVE NON-REAC TIVE [facility] Comment: HIV-1 antigen and HIV-1/HIV-2 antibodies were [...] purpose. For additional information please refer to http://education.[employer]/faq/SZP856 (This link is being provided for informational/ educational purposes only.) The performance of this assay has not been clinically validated in patients less than 2 years old. Blood Venous blood specimen / Unknown 03/08/2023 9:31 AM EDT 03/08/2023 9:32 AM EDT Narrative [facility] - 03/08/2023 8:49 PM EDT FASTING:YES FASTING: YES Michelle Gould MD LAB BLOOD ORDERABLES Final Result [facility] [address], [place] [address] [facility] [address] [place] [address] from Last 3 Months or Most Recently Relevant to Health [place] [address] [facility] MEDICAID STAND ADULT * Guarantor: Radha Nguyen Account Type Relation to Patient Date of Phone Billing Address Personal/Family Self [address] [place] Care Teams Oxygen System Tester Relationship Specialty Start Date End Date Mary Ellen Ortega MD [address] [facility] [place] [address] PCP - General Internal Medicine 03/15/23 Sommer Martinez, PharmD 230 [place] [address] Pharmacist Internal Medicine 09/30/24
--- OUTSIDE RECORDS SUMMARY | 2025-08-10 16:35 | XMS_ITS | Encounter Summary ---
Author Organization [employer] Address [address] [place] [address] 7t [place] [address] Care Team Providers Care Bailer Tenders Supervisor Name Role Phone Mary Ellen Ortega MD Primary Care Pro vider Sommer Martinez PharmD Unavailable [phone] Reason for Visit * Reason Comments Med Refill Encounter Details Date Type Department Care Team ([facility] st Contact Info) Description 10/01/2024 Refill [facility] MED[facility] [address] [place] [address] Mary Ellen Ortega MD [address] [place] [address] Social History Tobacco Use Types Packs/Day Years [...] with others, in a hotel, in a prison, living outside on the street, on a [...] Description 08/16/2025 10:00 AM EDT Medication Management [facility] [address] [place] [phone] Sommer Martinez PharmD 230 [place] [address] documented as of this encounter Visit Diagnoses Not on filedocumented in this encounter Additional Health Concerns Assessment Noted Time PHQ-9 Depression Total Score: 12 024 2:32 PM EDT documented as of this encounter Care Teams Bailer Tenders Supervisor Relationship Specialty Start Date End Date Mary Ellen Ortega MD [address] [place] [phone] PCP - General Internal Medicine 03/15/23 Sommer Martinez PharmD [address] [place] [address] Pharmacist Internal Medicine 09/30/24 documented as of this encounter
== END 2025-08-10 16:34 | disposition home or self-care (01) ==
PROVIDERS: Physician Assistant Medical; Emergency Provider Emergency Medicine; PCP Student in an Organized Health Care Education/Training Program
DX: H43.399 Other vitreous opacities, unspecified eye (principal); R30.0 Dysuria; N12 Tubulo-interstitial nephritis, not specified as acute or chronic
CPT/HCPCS: 36415; 76775; 80048; 80076; 81001; 82550; 83690; 83735; 85025; 87086; 87088; 87186; 99283; 99284

== ENCOUNTER → 2025-08-10 12:09 | Outpatient (BNV) | payer MEDICAID, SELFPAY | PROVIDERS: PCP Student in an Organized Health Care Education/Training Program; Visit Provider Radiology Diagnostic Radiology | DX: N20.0 Calculus of kidney (principal); N28.1 Cyst of kidney, acquired | CPT/HCPCS: 76775 ==

== ENCOUNTER 2025-08-16 16:10 | Outpatient (REF) | payer MEDICAID, SELFPAY ==
--- OUTSIDE RECORDS SUMMARY | 2025-08-16 11:20 | XMS_ITS | Encounter Summary ---
Author Organization [facility] Address [address] [facility] 7t [place] [address] Care Team Providers Care Log Peeler Name Role Phone Mary Ellen Ortega MD Primary Care Pro vider Sommer Martinez PharmD Unavailable [phone] Reason for Visit * Reason Comments UTI Encounter Details Date Type Department Care Team ([facility] st Contact Info) Description 08/16/2025 11:20 AM EDT Office Visit [facility] [address] [place] [address] Vaginal discharge (Primary Dx); Bilateral flank pain Social History Tobacco Use Types Packs/Day Years [...] PM EDT documented as of this encounter Last Filed Vital Signs Vital Sign Reading Time Taken Comments Blood Pressure 120/70 08/16/2025 11:57 AM EDT Pulse 72 08/16/2025 11:57 AM EDT Temperature 36.7 C (98.1 F) 08/16/2025 11:57 AM EDT Respiratory Rate 18 08/16/2025 11:57 AM EDT Oxygen Saturation 99% 08/16/2025 11:57 AM EDT Inhaled Oxygen Concentration - - Weight 77.7 kg (171 lb 6.4 oz) 08/16/2025 11:57 AM EDT Height 172.7 cm (5' 8 ) 08/16/2025 11:57 AM EDT Body Mass Index 26.06 08/16/2025 11:57 AM EDT documented in this encounter Plan of Treatment Scheduled Orders Name Type Priority Associated Diagnoses Orde r Schedule Bacterial Vaginosis, Yeast and Trich Microbiology Routine Vaginal discharge Expected: 08/16/2025 (Approximate), Expires: 08/16/2026 Culture, Urine, Routine Microbiology Routine Bilateral flank pain Expected: 08/16/2025 (Approximate), Expires: 08/16/2026 documented as of this encounter Procedures Procedure Name Priority Date/Time Associated Diagnosis Comments URINALYSIS, COMPLETE Routine 08/16/2025 12:00 AM EDT Bilateral flank pain documented in this encounter Results * (ABNORMAL) Urinalysis Complete (08/16/2025 12:00 AM EDT) Color Urine Yellow [facility] Appearance Urine Clear [facility] PH 6.5 5.0 - 9.0 [facility] Glucose Urine UA >=1000(A) Negative mg/dL [facility] Urine Blood Negative Negative [facility] Specific [place] - Urine >=1.030(H) 1.005 - 1.025 [facility] Urine Protein Negative Neg-Trace mg/dL [facility] Urine Ketones Negative Negative mg/dL [facility] Nitrite Urine Negative Negative [facility] Leukocyte Esterase Urine Negative Negative [facility] RBC Urine 0-2 0 - 2 /HPF [facility] Urine WBC 11-20(A) 0 - 5 /HPF [facility] Urine Squamous Epithelial Cell 6-10 0 - 2 /HPF [facility] Other Crystals Urine Present [facility] Urine Bacteria None Seen None Seen [facility] Hyaline Casts, Urine 0-2 0 - 2 /LPF [facility] Urine (Urine, Random) 08/16/2025 08/16/2025 Evy Elizabeth [facility] URINE ORDERABLES Final Resu lt [facility] [address] [place] [phone] documented in this encounter Visit Diagnoses Diagnosis Vaginal discharge- Primary Leukorrhea, not specified as infective Bilateral flank pain Abdominal pain, unspecified site documented in this encounter Additional Health Concerns Assessment Noted Time PHQ-9 Depression Total Score: 11 025 10:50 AM EDT documented as of this encounter Care Teams Log Peeler Relationship Specialty Start Date End Date Mary Ellen Ortega MD 230 [place], [place] [phone] PCP - General Internal Medicine 03/15/23 Sommer Martinez PharmD 230 [place], [place] [phone] Pharmacist Internal Medicine 09/30/24 documented as of this encounter
[2025-08-16 16:42] LABS: Appearance Urine Clear; Glucose Urine UA >=1000 mg/dL (Negative); PH 6.5 (5.0-9.0); Specific Gravity - Urine >= 1.030 (1.005-1.025); UMIC TRIGGER UA YES
[2025-08-16 16:59] LABS: Other Crystals Urine Present
[2025-08-16 17:27] LABS: Bacterial Vaginosis PCR NEGATIVE (Negative); Candida Group PCR DETECTED (Not Detect); Candida glab krusei PCR DETECTED (Not Detect); Trichomonas vaginalis PCR NOT DETECTED (Not Detect)
--- OUTSIDE RECORDS SUMMARY | 2025-08-16 18:25 | XMS_ITS | Encounter Summary ---
Author Organization [email or web address] Address [address] [place] [address] 7t [place] [address] Care Team Providers Care Program Engagement Director Name Role Phone Mary Ellen Ortega MD Primary Care Pro vider Sommer Martinez PharmD Unavailable [phone] Reason for Visit * Reason Comments Med Refill Encounter Details Date Type Department Care Team ([facility] st Contact Info) Description 02/26/2025 Refill [facility] MED[facility] [address] [place] [address] Mary Ellen Ortega MD 230 [place], [place] [phone] Social History Tobacco Use Types Packs/Day Years [...] as of this encounter Plan of Treatment Not on file documented as of this encounter Visit Diagnoses Not on filedocumented in this encounter Additional Health Concerns Assessment Noted Time PHQ-9 Depression Total Score: 12 024 2:32 PM EDT documented as of this encounter Care Teams Program Engagement Director Relationship Specialty Start Date End Date Mary Ellen Ortega MD [address] [place] [phone] PCP - General Internal Medicine 03/15/23 Sommer Martinez PharmD [address] [place] [address] [phone] Pharmacist Internal Medicine 09/30/24 documented as of this encounter
--- OUTSIDE RECORDS SUMMARY | 2025-08-16 18:25 | XMS_ITS | Encounter Summary ---
Author Organization [facility] [employer] Address [address] [place] [address] [address] [place] [address] Care Team Providers Care Surveyor Instrument Assistant Name Role Phone Mary Ellen Ortega MD Primary Care Pro vider Sommer Martinez PharmD Unavailable [phone] Reason for Visit * Reason Onset Date Comments Appointment Request 03/24/2025 Encounter Details Date Type Department Care Team ([facility] st Contact Info) Description 03/24/2025 Telephone [facility] MEDICINE [address] [place] [address] Mary Ellen Ortega MD [address] [place] [address] Appointment Request Social History Tobacco Use Types [...] documented in this encounter Plan of Treatment Not on file documented as of this encounter Visit Diagnoses Not on filedocumented in this encounter Additional Health Concerns Assessment Noted Time PHQ-9 Depression Total Score: 12 024 2:32 PM EDT documented as of this encounter Care Teams Surveyor Instrument Assistant Relationship Specialty Start Date End Date Mary Ellen Ortega MD [address] [place] [phone] PCP - General Internal Medicine 03/15/23 Sommer Martinez PharmD [address] [place] [phone] Pharmacist Internal Medicine 09/30/24 documented as of this encounter
--- OUTSIDE RECORDS SUMMARY | 2025-08-16 18:25 | XMS_ITS | Encounter Summary ---
Author Organization [employer] Address [address] [facility] 7t [place] [address] Care Team Providers Care Rehab Rn Name Role Phone Mary Ellen Ortega MD Primary Care Pro vider Sommer Martinez PharmD Unavailable [phone] Reason for Visit * Reason Comments Med Refill Encounter Details Date Type Department Care Team (Late st Contact Info) Description 03/08/2024 Refill [facility] MEDICINE 230 [place] [address] Patience Garcia, ANP 230 [place] [address] Social History Tobacco Use Types Packs/Day Years [...] documented as of this encounter Care Teams Rehab Rn Relationship Specialty Start Date End Date Mary Ellen Ortega MD [address] [place] [phone] PCP - General Internal Medicine 03/15/23 Sommer Martinez PharmD [address] [place] [phone] Pharmacist Internal Medicine 09/30/24 documented as of this encounter
--- OUTSIDE RECORDS SUMMARY | 2025-08-16 18:25 | XMS_ITS | Encounter Summary ---
Author Organization [employer] Address [address] [facility] 7t [place] [address] Care Team Providers Care Automatic Head Sawyer Name Role Phone Mary Ellen Ortega MD Primary Care Pro vider Sommer Martinez PharmD Unavailable [phone] Encounter Details Date Type Department Care Team (Latest Contact Info) Description 08/16/2025 Travel Social History Tobacco Use Types Packs/Day [...] documented as of this encounter Care Teams Automatic Head Sawyer Relationship Specialty Start Date End Date Mary Ellen Ortega MD 230 [place] [address] PCP - General Internal Medicine 03/15/23 Sommer Martinez PharmD [address] [place] [address] Pharmacist Internal Medicine 09/30/24 documented as of this encounter
--- OUTSIDE RECORDS SUMMARY | 2025-08-16 18:25 | XMS_ITS | Encounter Summary ---
Author Organization [employer] Address [address] [facility] 7t [place] [address] Care Team Providers Care Reliner Name Role Phone Mary Ellen Ortega MD Primary Care Pro vider Sommer Martinez PharmD Unavailable [phone] Encounter Details Date Type Department Care Team (Late st Contact Info) Description 08/16/2025 Orders Only [facility] MEDICINE 230 [place] [address] Evy Elizabeth NP [address] [place] [address] Social History Tobacco Use Types Packs/Day Years [...] the past 12 months, has t he [employer], gas, oil or water company threatened to [...] on file documented as of this encounter Procedures Procedure Name Priority Date/Time Associated Diagnosis Comments BACTERIAL VAGINOSIS PANEL Routine 08/16/2025 12:00 AM EDT documented in this encounter Results * (ABNORMAL) Bacterial Vaginosis (08/16/2025 12:00 AM EDT) TRICHOMONAS VAGINALIS DETECTION BY PCR NOT DETECTED Not Detect [facility] BACTERIAL VAGINOSIS DETECTION BY PCR NEGATIVE Negative [facility] Comment:The BV organism targ ets of the Xpert Xpress MVP test can becommensal in women; Xpert Xpress MVP positive results forbacterial vaginosis should be considered in conjunction withother clinical and patient information to determine thedisease status. Organisms that are not detected by the XpertXpress MVP test have also been reported to be associatedwith BV and aerobic vaginitis.The Xpert Xpress MVP test performance has not been evaluatedin patients under the age of 14. MARICHUY GROUP DETECTION BY PCR DETECTED(A) Not Detect [facility] Marichuy glab krusei PCR DETECTED(A) Not Detect [facility] 08/16/2025 08/16/2025 Evy Glenn GRAIN OPERATOR LAB MICROBIOLOGY - GENERAL HOMA FLOYD Final Result [facility] [address] [place] [phone] documented in this encounter Visit Diagnoses Not on filedocumented in this encounter Additional Health Concerns Assessment Noted Time PHQ-9 Depression Total Score: 11 025 10:50 AM EDT documented as of this encounter Care Teams Reliner Relationship Specialty Start Date End Date Mary Ellen Ortega MD 230 [place] [address] PCP - General Internal Medicine 03/15/23 Sommer Martinez PharmD 230 [place] [address] Pharmacist Internal Medicine 09/30/24 documented as of this encounter
--- OUTSIDE RECORDS SUMMARY | 2025-08-16 18:25 | XMS_ITS | Encounter Summary ---
Author Organization [employer] Address [address] [place] [address] 7t [place] [address] Care Team Providers Care Supervisor Dental Laboratory Name Role Phone Mary Ellen Ortega MD Primary Care Pro vider Sommer Martinez PharmD Unavailable [phone] Encounter Details Date Type Department Care Team (Late st Contact Info) Description 08/11/2025 Results Follow-Up [facility] MEDICINE 230 [place] [address] Mary Ellen Ortega MD [address] [place] [address] CBC auto differential, Hepatic Function Panel, Basic Metabolic Panel, Additional followed-up results: 5 Social History Tobacco Use Types Packs/Day Years [...] as of this encounter Miscellaneous Notes * Result Encounter Note - Mary Ellen Orellana MD - 08/11/2025 1:30 PM EDT Labs done by outside provider documented in this encounter Plan of Treatment Not on file documented as of this encounter Visit Diagnoses Not on filedocumented in this encounter Additional Health Concerns Assessment Noted Time PHQ-9 Depression Total Score: 11 025 10:50 AM EDT documented as of this encounter Care Teams Supervisor Dental Laboratory Relationship Specialty Start Date End Date Mary Ellen Ortega MD 230 [place], [place] [phone] PCP - General Internal Medicine 03/15/23 Sommer Martinez, Vicki [address] [place] [phone] Pharmacist Internal Medicine 09/30/24 documented as of this encounter
--- OUTSIDE RECORDS SUMMARY | 2025-08-16 18:25 | XMS_ITS | Encounter Summary ---
Author Organization [employer] Address [address] [place] [address] 7t [place] [address] Care Team Providers Care Moving Worker Name Role Phone Mary Ellen Ortega MD Primary Care Pro vider Sommer Martinez PharmD Unavailable [phone] Reason for Visit * Reason Comments Med Refill Encounter Details Date Type Department Care Team ([facility] st Contact Info) Description 02/11/2025 Refill [facility] MEDICINE [address] [place] [address] Mary Ellen Ortega MD 230 [place], [place] [phone] Tenderness over maxillary sinus Social History Tobacco [...] with others, in a hotel, in a retirement, living outside on the street, on a [...] documented as of this encounter Care Teams Moving Worker Relationship Specialty Start Date End Date Mary Ellen Ortega MD [address] [place] [phone] PCP - General Internal Medicine 03/15/23 Sommer Martinez PharmD [address] [place] [address] Pharmacist Internal Medicine 09/30/24 documented as of this encounter
--- OUTSIDE RECORDS SUMMARY | 2025-08-16 18:25 | XMS_ITS | Encounter Summary ---
Author Organization [employer] [facility] Address [address] [place] [address] 7[address] [place] [address] Care Team Providers Care Reaming Machine Operator Name Role Phone Mary Ellen Ortega MD Primary Care Pro vider Sommer Martinez PharmD Unavailable Reason for Visit * Reason Onset Date Comments Referral 04/01/2023 Encounter Details Date Type Department Care Team ([facility] st Contact Info) Description 04/01/2023 Telephone [facility] MEDICINE [address] [place] [address] Mary Ellen Ortega MD 230 [place] [address] Referral Social History Tobacco Use Types Packs/Day [...] 11:19 AM EDT Pt was seen by [facility] on 03/15/23 and appears to have an upcoming appt with [facility] on 04/05/23. Unsure if ptstill has pending appt. Will send message to [facility] to outreach pt regarding request. * Telephone Encounter - Sawyer Quiñonez - 04/01/2023 10:16 AM EDT Tc from pt requesting status on referral for a psychiatrist. Please contact pt at [phone] documented in this encounter Plan of Treatment Not on file documented as of this encounter Visit Diagnoses Not on filedocumented in this encounter Additional Health Concerns Assessment Noted Time PHQ-9 Depression Total Score: 18 023 1:27 PM EDT documented as of this encounter Care Teams Reaming Machine Operator Relationship Specialty Start Date End Date Mary Ellen Ortega MD [address] [place] [id number] PCP - General Internal Medicine 03/15/23 Sommer Martinez PharmD [address] [place] [phone] Pharmacist Internal Medicine 09/30/24 documented as of this encounter
--- OUTSIDE RECORDS SUMMARY | 2025-08-16 18:25 | XMS_ITS | Patient Health Record ---
Author Organization [facility] [address] [facility] [address] Care Team Providers Care Printing Assistant Name Role Phone Larry Carranza Unavailable Unavailable CelCastillo blakeanda Unavailable Unavailable Reason For Referral No Information Plan Of Treatment No Information Insurance Providers Payer Name Payer Address Payer Phone Subscriber Number Group Number Insured Name Patient Relationship to Insured Coverage Start Date Coverage End Date [employer] Medicaid [address] [place] [phone] [id number] Radha Lux Self - patient is the insured
--- OUTSIDE RECORDS SUMMARY | 2025-08-16 18:26 | XMS_ITS | Encounter Summary ---
Author Organization [employer] Address [address] [facility] 7t [place] [address] Care Team Providers Care Configuration Manager Name Role Phone Mary Ellen Ortega MD Primary Care Pro vider Sommer Martinez PharmD Unavailable [phone] Reason for Visit * Reason Comments Med Refill Encounter Details Date Type Department Care Team ([facility] st Contact Info) Description 05/27/[address] [facility] MEDICINE [address] [place] [address] Mary Ellen Rosario MD 230 [place], [place] [phone] Social History Tobacco Use Types Packs/Day Years [...] documented as of this encounter Care Teams Configuration Manager Relationship Specialty Start Date End Date Mary Ellen Ortega MD [address] [place] [phone] PCP - General Internal Medicine 03/15/23 Sommer Martinez PharmD [address] [place] [phone] Pharmacist Internal Medicine 09/30/24 documented as of this encounter
--- OUTSIDE RECORDS SUMMARY | 2025-08-16 18:26 | XMS_ITS | Encounter Summary ---
Author Organization [employer] Address [address] [facility] 7t [place] [address] Care Team Providers Care Port Engineer Name Role Phone Mary Ellen Ortega MD Primary Care Pro vider Sommer Martinez PharmD Unavailable [phone] Encounter Details Date Type Department Care Team (Late st Contact Info) Description 05/27/2025 Refill [facility]S [address] [place], [place] [phone] Mary Ellen Ortega MD 230 [place] [address] Social History Tobacco Use Types Packs/Day Years [...] the past 12 months, has t he [employer] gas, oil or water company threatened to [...] documented as of this encounter Care Teams Port Engineer Relationship Specialty Start Date End Date Mary Ellen Ortega MD [address] [place] [phone] PCP - General Internal Medicine 03/15/23 Sommer Martinez PharmD [address] [place] [phone] Pharmacist Internal Medicine 11/20/24 documented as of this encounter
--- OUTSIDE RECORDS SUMMARY | 2025-08-16 18:26 | XMS_ITS | Encounter Summary ---
Author Organization [employer] [facility] Address [address] [place] [address] [address] [address] Care Team Providers Care Real Estate Sales Agent Name Role Phone Mary Ellen Ortega MD Primary Care Pro vider Sommer Martinez PharmD Unavailable [phone] Reason for Visit * Reason Onset Date Comments Medication Question 05/07/2023 Encounter Details Date Type Department Care Team ([facility] st Contact Info) Description 05/07/2023 Telephone [facility] MEDICINE [address] [place] [address] Mary Ellen Ortega MD 230 [place], [place] [phone] Medication Question Social History Tobacco Use Types [...] documented as of this encounter Care Teams Real Estate Sales Agent Relationship Specialty Start Date End Date Mary Ellen Ortega MD [address] [place] [phone] PCP - General Internal Medicine 03/15/23 Sommer Martinez PharmD [address] [place] [phone] Pharmacist Internal Medicine 09/30/24 documented as of this encounter
--- OUTSIDE RECORDS SUMMARY | 2025-08-16 18:26 | XMS_ITS | Encounter Summary ---
Author Organization [employer] Address [address] [place] [address] 7[address] [place] [address] Care Team Providers Care Senior Net Software Engineer Name Role Phone Mary Ellen Ortega MD Primary Care Pro vider Sommer Martinez PharmD Unavailable [phone] Reason for Visit * Reason Comments Med Refill Encounter Details Date Type Department Care Team ([facility] st Contact Info) Description 10/01/2024 Refill [facility] MEDICINE [address] [place] [address] Mary Ellen Ortega MD 230 [place] [address] Social History Tobacco Use Types Packs/Day Years [...] with others, in a hotel, in a senior living, living outside on the street, on a [...] as of this encounter Care Teams Senior Net Software Engineer Relationship Specialty Start Date End Date Mary Ellen Ortega MD [address] [place] [address] PCP - General Internal Medicine 03/15/23 Sommer Martinez PharmD [address] [place] [phone] Pharmacist Internal Medicine 09/30/24 documented as of this encounter
--- OUTSIDE RECORDS SUMMARY | 2025-08-16 18:26 | XMS_ITS | Clinical Summary ---
Author Organization [employer] Address [address] [place] [address] [address] [place] [address] Care Team Providers Care Environmental Conservation Officer Name Role Phone Mary Ellen Ortega MD Primary Care Pro vider Sommer Martinez PharmD Unavailable [phone] Allergies Active Allergy Reactions Criticality Noted Date [...] 3 024 Active Diclofenac Sodium 1 % gelIndications:P ain of toe of right foot APPLY 2 GRAMS TOPICALLY TO AFFECTED AREA(S) FOUR TIMES DAILY FOR PAIN AND SWELLING 100 g 2 024 Active Adderall XR 25 MG 24 hr capsule Take 25 mg by mouth in the morning. 024 Active pantoprazole (ProtoNix) 40 MG EC tablet Take 40 mg by mouth in the morning. Active sodium chloride (Keyes) 0.65 % nasal sprayIndications :Tenderness over maxillary sinus Administer 1 spray into each nostril if needed for congestion. 15 mL 1 024 2024 Active betamethasone, augmented, (Diprolene) 0.05 % ointmentIndicati ons:Dyshidrotic eczema Apply topically every 12 (twelve) hours if needed (affected skin ,dermatitis). APPLY TO THE AFFECTED AREA(S) TOPICALLY TWICE DAILY 15 g Active desonide (DesOwen) 0.05 % creamIndications :Seborrheic dermatitis APPLY TOPICALLY TO FACE 1-2 TIMES [...] Take 15 mg by mouth at bedtime. 025 Active Continuous Glucose Basting Machine Operator (FreeStyle Taco 3 Evangeline) device 1 each Once per day. Use as directed for CGM 1 each 025 Active Continuous Glucose Sensor (FreeStyle Taco 3 Plus Sensor) misc 1 each every 15 days. Apply 1 every 15 days as directed for CGM 2 each Active Fluticasone Furoate-Vilanter ol (Breo Ellipta) 100-25 MCG/ACT aerosol powder Inhale 1 Inhalation Once per day. 60 each Active metFORMIN (Glucophage) 500 MG tablet TAKE 1 TABLET BY MOUTH EVERY MORNING 90 tablet 1 Active montelukast (Singulair) 10 MG tablet TAKE 1 TABLET BY MOUTH AT BEDTIME 90 tablet 1 Active potassium chloride CR (Klor-Con) 10 MEQ ER tablet TAKE 1 TABLET BY MOUTH EVERY MORNING 90 tablet 1 025 Active valsartan-hydroC HLOROthiazide (Diovan-HCT) 320-25 MG tablet TAKE 1 TABLET BY MOUTH EVERY MORNING 90 tablet 1 025 Active olopatadine (Patanol) 0.1 % ophthalmic solutionIndicati ons:Sinus pressure 2 drops up to twice daily as needed for eye itching/allergie s 5 mL 025 Active acetaminophen (Tylenol Extra Strength) 500 MG tabletIndication s:Sinus pressure TAKE 1 TO 2 TABLETS BY MOUTH UP TO THREE TIMES DAILY NEEDED FOR PAIN 45 tablet Active glucose blood (FreeStyle Precision Geoff Test) test strip Use to test blood sugar 2 times daily in case of CGM failure or extremes of BG 50 each 025 2025 Active FLUoxetine (PROzac) 20 MG capsule Take 20 mg by mouth in the morning. Active ketoconazole (NIZOral) 2 % shampooIndicatio ns:Seborrheic dermatitis APPLY TO SCALP TWICE DAILY, LEAVE ON FOR 5 MINUTES THEN RINSE. 120 mL 1 025 Active insulin lispro (HumaLOG) 100 UNIT/ML injectionIndicat ions:Type 2 diabetes mellitus with other circulatory complication, with long-term current use of insulin (HCC) INJECT 10 UNITS SUBCUTANEOUSLY THREE TIMES DAILY BEFORE MEALS 15 mL 5 025 Active EPINEPHrine (Epipen) 0.3 MG/0.3ML injection syringe Inject 0.3 mL (0.3 mg) as directed 1 (one) time for 1 dose. use as directed for allergic reaction and then call 911 1 each 2 025 Active insulin pen needle (TechLite Pen [place]) 32G x 4 mm [facility] USE DIRECTED FOUR TIMES DAILY 100 each 3 025 Active Trulicity 1.5 MG/0.5ML solution auto-injector INJECT ONE PEN (=1.5MG) SUBCUTANEOUSLY ONCE A WEEK DIRECTED 2 mL 11 025 Active cetirizine (ZyrTEC) 10 MG tablet TAKE 1 TABLET BY MOUTH AT BEDTIME 90 tablet 1 Active tiZANidine (Zanaflex) 2 MG tablet Take 2 mg by mouth if needed in the morning, at noon, and at bedtime for muscle spasms. 025 Active gabapentin (Neurontin) 100 MG capsule Take 200 mg by mouth in the morning and 200 mg at noon and 200 mg in the evening. Active sodium chloride (Keyes) 0.65 % nasal spray Administer 1 spray [...] by mouth in the morning. 90 tablet Active dapagliflozin (Farxiga) 10 MG Take 1 tablet (10 mg) by mouth in the morning. 90 tablet Active clopidogrel (Plavix) 75 MG tablet Take 1 tablet (75 mg) by mouth in the morning. 90 tablet Active aspirin (Aspirin Low Dose) 81 MG chewable tablet TAKE 1 TABLET BY MOUTH EVERY MORNING (CHEW) 90 tablet Active amLODIPine (Norvasc) 10 MG tablet Take 1 tablet (10 mg) by mouth at bedtime. 90 tablet Active cefpodoxime (Vantin) 200 MG tablet Take 200 mg by mouth with breakfast and with evening meal. Active ondansetron ODT (Zofran-ODT) 4 MG disintegrating tablet DISSOLVE 1 TABLET ENCIMA DE LENGUA EVERY 8 HOURS NEEDED FOR NAUSEA AND VOMITING Active insulin glargine (Lantus SoloStar) 100 UNIT/ML pen Inject 27 Units under the skin Once per day 3 mL 11 Active aspirin (Aspirin Low Dose) 81 MG [...] eorder (will not trigger notification to Pharmacy)) insulin glargine (Lantus SoloStar) 100 UNIT/ML pen Inject 24 Units under the skin Once per day 3 mL 11 025 2024 Discontinued(R eorder (will not trigger notification to Pharmacy)) Active Problems Problem Noted Date Diagnosed Date [...] Assessment & Plan (07/25/2023 6:53 PM EDT): 3 systolic murmur in 2nd right intercostal space [...] in process for implant Exchange -pt requesting [employer] info-requested to nurse staff to help w [...] of sxs (family interactions, her job as [employer] and medical condition). Radha is engaged with [...] and housing. Radha has recently moved to [place] after her . She's currently taking care [...] was f w psychiatrist and psychtx in [place] Reports is taking all meds now except [...] & Plan (07/29/2024 10:18 AM EDT): During IB Consult Radha presenting with depressed mood, hopelessness, [...] of sxs (family interactions, her job as [employer] and medical condition). Radha is engaged with [...] and housing. Radha has recently moved to [place] after her . She's currently taking care [...] found -but states normal ?---referred already -[facility] AcAry today to check status of Referral -colonoscopy [...] and no indication for fibrates -referred to hot oiler and conditioning machine operator at previous visit -[facility] El will check [...] needed if LDL > 70 -referred to hot oiler and conditioning machine operator at previous visit -[facility] Alba.A will check status of referrals -will repeat [...] needed if LDL > 70 -referred to hot oiler and conditioning machine operator at previous visit -[facility] Alba.A will check status of referrals -will repeat [...] statins -low dose lipitor -referred today to hot oiler and conditioning machine operator -will repeat DM labs and fasting lipids [...] Hx of AKA (above knee amputation), left ([facility] ) 03/05/2023 Assessment & Plan (07/25/2023 7:11 PM EDT): Per pt hx of severe Raynauds c/ b left AKRehana ,used crutches and wheelchair x ambulation ----pt just received this month new crutches and new wheelchair -continue ASA,plavix -pt requesting electric wheelchair -referred for PT eval Assessment & Plan (05/31/2023 10:06 PM EDT): Per pt hx of severe Raynauds c/ b left AKRehana ,used crutches and wheelchair x ambulation ----pt just received this month new crutches and new wheelchair -continue ASA,plavix Assessment & Plan (05/01/2023 7:11 PM EDT): Per pt hx of severe Raynauds c/ b left AKRehana ,used crutches and wheelchair x ambulation ----pt [...] and housing. Radha has recently moved to [place] after her . She's currently taking care [...] to follow-up with [facility] regarding referral placed (I printed out [...] and housing. Radha has recently moved to [place] after her . She's currently taking care [...] and exercise,discussed healthy life style -referred x sales and business development manager Assessment & Plan (05/31/2023 10:05 PM EDT): Advised pt to improve diet and exercise,discussed healthy life style -referred today x sales and business development manager Assessment & Plan (05/01/2023 7:17 PM EDT): Advised pt to improve diet and exercise,discussed healthy life style -will discuss about sales and business development manager referral at next visit Skin lesion 05/01/2023 07/25/2023 Assessment & Plan (05/31/2023 10:09 PM EDT): Reports chronic skin lesions in scalp and palms using chronically topical steroids saw cash management associate s/p resection of skin tags but has mils surrounding erythema -mupirocin TID x 7 days Assessment & Plan (05/01/2023 7:19 PM EDT): Reports chronic skin lesions in scalp and palms using chronically topical steroids -triamcinolone -referred to cash management associate today for further eval Depression 03/15/2023 03/15/2023 Moderate persistent asthma 03/05/2023 0 03/15/2023 Encounters * This document contains information received from the source organization and may not represent a complete record from that organization. Date Type Department Care Team Description 08/16/2025 11:20 AM EDT Office Visit [facility] [place] [address] Vaginal discharge (Primary Dx); Bilateral flank pain 08/16/2025 Orders Only [facility] [place] [address] Evy Elizabeth NP 08/16/2025 Travel 08/11/2025 Results Follow-Up [facility] [place] [address] Mary Ellen Ortega MD CBC auto differential, Hepatic Function Panel, Basic Metabolic Panel, Additional followed-up results: 5 08/10/2025 Orders Only GENERIC EXTERNAL DATA DEPARTMENT Provider, Generic External Data 07/29/2025 Travel 07/26/2025 Refill [facility] [address] [facility] [place] [address] Mary Ellen Ortega MD 07/23/2025 Refill [facility] [address] [facility] [place] [place] [address] Mary Ellen Ortega MD 07/06/2025 1:45 PM EDT Office Visit [facility] [place] [address] Martins Esteban, Pham, MD Sore throat (Primary Dx); Type 2 diabetes mellitus with other circulatory complication, with long-term current use of insulin ([facility]); Nasal congestion; Lung nodule; Hypertension, unspecified type; Health care maintenance; Severe episode of recurrent major depressive disorder, without psychotic features ([facility]); ALBERTINA (obstructive sleep apnea); Upper respiratory tract infection, unspecified type 07/06/2025 Travel 06/01/2025 Telephone [facility] [address] [place] [address] Mary Ellen Ortega MD Durable Medical Equipment 05/27/2025 Refill [facility] [address] [place] [address] Mary Ellen Rosario MD 05/27/[address] [facility] [address] [place], [place] [phone] Mary Ellen Ortega MD 05/27/2025 Orders Only [facility] External Provider, [facility] 05/26/2025 Refill [facility] [address] [place] [address] Mary Ellen Rosario MD 05/26/2025 Refill [facility] [address] [place] [address] Mary Ellen Ortega MD 05/21/2025 Refill [facility] [address] [place] [address] Sommer Martinez, PharmD 05/18/2025 3:00 PM EDT Office Visit [facility] [address] [place] [address] Flavia Weber Edentulous maxilla (Primary Dx); Partially edentulous mandible, unspecified edentulism class 05/17/2025 Telephone [facility] [address] [place] [address] Mary Ellen Ortega MD Durable Medical Equipment from Last 3 Months Immunizations Immunization Administration [...] Mass Index 26.06 08/16/2025 11:57 AM EDT Plan of Treatment Health Maintenance Due Date Last Done Comments [...] Screening 05/18/2026 05/18/2025 Eye Exam 03/15/2027 03/15/2025, 03/2025, 03/15/2025, Additional history exists Cervical Cancer [...] 08/16/2025 12:00 AM EDT Bilateral flank pain BACTERIAL VAGINOSIS PANEL Routine 08/16/2025 12:00 AM EDT URINALYSIS, COMPLETE, WITH REFLEX TO CULTURE Routine 08/10/2025 3:23 PM EDT US RENAL COMPLETE Routine 08/10/2025 12: 59 PM EDT LIPASE Routine 08/10/2025 10:45 AM EDT CREATINE KINASE, TOTAL Routine 10:45 AM EDT MAGNESIUM Routine 08/10/2025 10:45 AM EDT BASIC METABOLIC PANEL Routine 08/10/2025 10:45 AM EDT HEPATIC FUNCTION PANEL Routine 10:45 AM EDT CBC WITH AUTO DIFFERENTIAL Routine 08/10/2025 10:45 AM EDT CULTURE, URINE, ROUTINE Routine 08/10/2025 12:[address] LUMBAR SPINE WO CONTRAST [...] Relevant to Health Maintenance Results * (ABNORMAL) Bacterial Vaginosis (08/16/2025 12:00 AM EDT) TRICHOMONAS VAGINALIS DETECTION BY PCR NOT DETECTED Not Detect [facility] BACTERIAL VAGINOSIS DETECTION BY PCR NEGATIVE Negative [facility] Comment:The BV organism targ ets of [...] GROUP DETECTION BY PCR DETECTED(A) Not Detect [facility] Mraichuy glab krusei PCR DETECTED(A) Not Detect [facility] 08/16/2025 08/16/2025 Evy Elizabeth NP LAB MICROBIOLOGY - GENERAL HOMA FLOYD Final Result [facility] [address] [place] [phone] * (ABNORMAL) Urinalysis Complete (08/16/2025 12:00 AM EDT) Color Urine Yellow [facility] Appearance Urine Clear [facility] PH 6.5 5.0 - 9.0 [facility] Glucose Urine UA >=1000(A) Negative mg/dL [facility] Urine Blood Negative Negative [facility] Specific [place] - Urine >=1.030(H) 1.005 - 1.025 [facility] Urine Protein Negative Neg-Trace mg/dL [facility] Urine Ketones Negative Negative mg/dL [facility] Nitrite Urine Negative Negative [facility] Leukocyte Esterase Urine Negative Negative [facility] RBC Urine 0-2 0 - 2 /HPF [facility] Urine WBC 11-20(A) 0 - 5 /HPF [facility] Urine Squamous Epithelial Cell 6-10 0 - 2 /HPF [facility] Other Crystals Urine Present [facility] Urine Bacteria None Seen None Seen [facility] Hyaline Casts, Urine 0-2 0 - 2 /LPF [facility] Urine (Urine, Random) 08/16/2025 08/16/2025 us Evy Elizabeth DISCHARGE DOOR OPERATOR LAB URINE ORDERABLES Final Resu lt [facility] [address] [place] [address] [phone] * (ABNORMAL) Urinalysis, Complete, with Reflex to Culture (08/10/2025 3:23 PM EDT) Color Urine Dark Yellow [facility] Appearance Urine Clear [facility] PH 5.5 5.0 - 9.0 [facility] Glucose Urine UA >=1000(A) Negative mg/dL [facility] Urine Blood Negative Negative [facility] Specific [place] - Urine >=1.030(H) 1.005 - 1.025 [facility] Urine Protein Trace Neg-Trace mg/dL [facility] Urine Ketones Trace Negative mg/dL [facility] Nitrite Urine Positive(A) Negative [facility] Leukocyte Esterase Urine Trace(A) Negative [facility] RBC Urine 0-2 0 - 2 /HPF [facility] Urine WBC 21-50(A) 0 - 5 /HPF [facility] Urine Squamous Epithelial Cell 3-5 0 - 2 /HPF [facility] Urine Bacteria 4+ None Seen [facility] Hyaline Casts, Urine 0-2 0 - 2 /LPF [facility] 08/10/2025 3:23 PM EDT 08/10/2025 3:32 PM EDT Narrative [facility] - 08/10/2025 3:42 PM EDT Urine, Clean Catch us Generic External Data Provider LAB URINE ORDERAB LES Final Result [facility] [address] [place] [phone] * US Renal Complete (08/10/2025 12:59 PM EDT) Anatomical Region Laterality Modality Kidney Ultrasound 08/10/2025 12:5 9 PM EDT Narrative 08/10/2025 1:45 PM EDT [address] [address] Ultrasound Report Signed Patient: Radha Nguyen#: [id number] : 1970 Acct:[id number] Age/Sex: 54 / F ADM Date: 08/10/25 Loc: .ED Attending Dr: Ordering Physician: Ailyn Bowen Date of Service: 08/10/25 Procedure(s): US renal BI Accession Number(s): [id number] cc: Mary Ellen Ortega MD; Ailyn Bowen [...] 08/10/25 1342 DD/ 1259 TD/TT: 08/10/25 1318 Last Repairer: Procedure Note Donotuseinterpreter, Image - 08/10/2025 [place] [address] Ultrasound Report Signed Patient: Adeola Nguyen R#: [id number] : 1970Acct:[id number] Age/Sex: 54 / FADM Date: 08/10/25 Loc: HO.ED Attending Dr: Ordering Physician: Ailyn Bowen Date of Service: 08/10/25 Procedure(s): US renal BI Accession Number(s): [id number] cc: Mary Ellen Ortega MD; Ailyn Bowen [...] 08/10/25 1342 DD/ 1259 TD/TT: 08/10/25 1318 Last Repairer: us [facility] External Provider IMG US PROCEDURES Final Result * CBC auto differential (08/10/2025 10:45 AM EDT) White Blood Count 10.7 4.8 - 10.8 X10*3/uL [facility] Red Blood Count 5.45 4.20 - 5.50 X10*6/uL [facility] Hemoglobin 15.1 12.0 - 16.0 g/dl [facility] Hematocrit 46.6 37.0 - 47.0 % [facility] Mean Corpuscular Volume 85.5 80.0 - 98.0 fL [facility] Mean Corpuscular Hemoglobin 27.7 27.0 - 33.0 pg [facility] Mean Corpuscular HGB Conc 32.4 31.0 - 35.0 g/dl [facility] Red Cell Distribution Width 12.4 11.0 - 16.0 % [facility] Platelet Count 340 160 - 400 X10*3/uL [facility] Mean Platelet Volume 9.5 9.4 - 12.3 fL [facility] Neutrophils Percent Auto 61.4 45 - 73 % [facility] Imm Gran Pct Auto 0.3 0.0 - 0.4 % [facility] Lymphocytes Percent Auto 28.8 20 - 40 % [facility] Monocytes Percent Auto 6.5 2 - 11 % [facility] Eosinophils Percent Auto 2.4 0 - 4 % [facility] Basophils Percent Auto 0.6 0 - 2 % [facility] NRBC Pct Auto 0.0 0.0 - 0.2 /100WBC [facility] Neutrophils Absolute Auto 6.6 2.0 - 8.3 x10*3/uL [facility] Imm Gran Abs Auto 0.03 0.00 - 0.03 X10*3/uL [facility] Lymphocytes Absolute Auto 3.1 1.2 - 4.9 X10*3/uL [facility] Monocytes Absolute Auto 0.7 0.1 - 1.2 X10*3/uL [facility] Eosinophils Absolute Auto 0.3 0.0 - 0.4 X10*3/uL [facility] Basophils Absolute Auto 0.1 0.0 - 0.2 X10*3/uL [facility] NRBC Abs Auto 0.000 0.0 - 0.012 X10*3/uL [facility] 08/10/2025 10:4 5 AM EDT 08/10/2025 10:48 AM EDT us Generic External Data Provider LAB BLOOD ORDERAB LES Final Result Performing Organization Address [facility] Co de Phone Number [facility] [address] [place] [phone] * Magnesium (08/10/2025 10:45 AM EDT) Magnesium 1.7 1.6 - 2.6 mg/dL [facility] 08/10/2025 10:4 5 AM EDT 08/10/2025 10:48 AM EDT us Generic External Data Provider LAB BLOOD ORDERAB LES Final Result Performing Organization Address City/[facility]/ZIP Co de Phone Number [facility] [address] [place] [phone] * Lipase (08/10/2025 10:45 AM EDT) Lipase 21 8 - 78 U/L [facility] 08/10/2025 10:4 5 AM EDT 08/10/2025 10:48 AM EDT Generic External Data Provider LAB BLOOD ORDERAB LES Final Result Performing Organization Address [facility]/ZIP Co de Phone Number [facility] [address] [place] [phone] * Creatine Kinase, Total (08/10/2025 10:45 AM EDT) Creatine Kinase Total 52 26 - 140 U/L [facility] 08/10/2025 10:4 5 AM EDT 08/10/2025 10:48 AM EDT Generic External Data Provider LAB BLOOD ORDERAB LES Final Result Performing Organization Address [facility] de Phone Number [facility] [address] [place] [phone] * (ABNORMAL) Hepatic Function Panel (08/10/2025 10:45 AM EDT) Bilirubin, Total 0.8 0.0 - 1.0 mg/dL [facility] Bilirubin, Direct 0.3 0.0 - 0.5 mg/dL [facility] Aspartate Amino Transferase 29 5 - 31 U/L [facility] Alanine Aminotransferase 33(H) 0 - 31 U/L [facility] Total Protein 7.8 6.5 - 8.0 g/dL [facility] Albumin Level 4.8 3.5 - 5.0 g/dL [facility] Alkaline Phosphatase 141(H) 39 - 117 U/L [facility] 08/10/2025 10:4 5 AM EDT 08/10/2025 10:48 AM EDT us Generic External Data Provider LAB BLOOD ORDERAB LES Final Result Performing Organization Address City/[facility]/ZIP Co de Phone Number [facility] [address] [place] [phone] * (ABNORMAL) Basic Metabolic Panel (08/10/2025 10:45 AM EDT) Sodium 142 135 - 145 mmol/L [facility] Potassium 3.1(L) 3.3 - 5.1 mmol/L [facility] Chloride 105 96 - 108 mmol/L [facility] Carbon Dioxide 25 22 - 29 mmol/L [facility] Anion Gap 15 12 - 20 [facility] Urea Nitrogen (BUN) 9 9 - 16 mg/dL [facility] Creatinine, Serum 0.74 0.5 - 1.4 mg/dL [facility] Creatinine Clr Calc Pharmacy 85.6 [facility] Comment:Provided height and weight: 172.72 cm,71.668 kg.eGFR (calculated from the MDRD study equation) and eCrCl(calculated from the Cockcroft-Gault equation) are based ondifferent parameters and may not yield comparable results.If eCrCl result is absurd, please check patient'sheight/weight. Estimated Glomerular Filt Rate >60 [facility] Comment:Chronic Kidney Disea se: Estimated GFR < 60 mL/min/1.35z6Booeil Kidney Disease: Estimated GFR < 15 mL/min/1.73m2 Glucose 168(H) 60 - 115 mg/dL [facility] Calcium 9.6 8.4 - 10.2 mg/dL [facility] 08/10/2025 10:4 5 AM EDT 08/10/2025 10:48 AM EDT us Generic External Data Provider LAB BLOOD ORDERAB LES Final Result Performing Organization Address [facility]/ZIP Co de Phone Number [facility] [address] [place] [phone] * Culture, Urine, Routine (08/10/2025 12:00 AM EDT) Urine Urine specimen obtained by clean catch procedure / Unknown 08/10/2025 08/10/2025 Comment:UACC Narrative [facility] - 08/12/2025 8:07 AM EDT Escherichia coli Quant > 100,000 cfu/mL Escherichia coli: Ampicillin >=32(R) Escherichia coli: Cefazolin (Urine) 4(S) Escherichia coli: Cefepime <=0.12(S) Escherichia coli: Ceftriaxone <=0.25(S) Escherichia coli: Ciprofloxacin 0.5(I) Escherichia coli: Gentamicin <=1(S) Escherichia coli: Nitrofurantoin <=16(S) Escherichia coli: Trimethoprim/Sulfamethoxazole >=320(R) Specimen Source: Urine clean catch us Generic External Data Provider LAB MICROBIOLOGY - GENERAL ORDERABLES Final Result Performing Organization Address City/State/[facility] Co de Phone Number [facility] [address] [place] [address] [phone] * CT Lumbar Spine w/o Contrast (08/03/2025 9:29 AM EDT) Anatomical Region Laterality Modality Spine, L-spine Computed Tomogra phy 08/03/2025 9:29 AM EDT Narrative 08/03/2025 10:04 AM EDT [place] [address] CT Scan Report Signed Patient: Jose J JuarezzRadha Coyne#: [id number] : 1970 Acct:[id number] Age/Sex: 54 / F ADM Date: 08/03/25 Loc: CARD Attending Dr: Mary Ellen Orellana MD Ordering Physician: Nhi Wisdom Date of Service: 08/03/25 Procedure(s): CT lumbar spine wo IV con Accession Number(s): [id number] cc: Nhi Wisdom; Mary Ellen Ortega MD Report Number: [id number]: Total DLP = 690.00 mGy-cm Reason for [...] atherosclerotic calcifications are present. There are 5 ogt-pqs-qeyymcz lumbar segments. T12-L1: There is no disc [...] OV> 08/03/25 1001 DD/ 8 TD/TT: 08/03/25941 Last Repairer: Procedure Note Donotuseinterpreter, Image - 08/03/[address] [place] [address] [address] Scan Report Signed Patient: Adeola Nguyen R#: [id number] : 1970Acct:[id number] Age/Sex: 54 / FADM Date: 08/03/25 [facility]: Mary Ellen Orellana MD Ordering Physician: Nhi Wisdom Date of Service: 08/03/25 Procedure(s): CT lumbar spine wo IV con Accession Number(s): [id number] cc: Nhi Wisdom; Mary Ellen Ortega MD Report Number: [id number]: Total DLP = 690.00 mGy-cm Reason for [...] atherosclerotic calcifications are present. There are 5 tro-xhz-rntboqt lumbar segments. T12-L1: There is no disc [...] 08/03/25 1001 DD/ 0929 TD/TT: 08/03/25 0942 Last Repairer: [facility] External Provider IMG CT PROCEDURES Final Result * POCT Rapid Influenza B BADILLO ID NOW (07/06/2025 2:25 PM EDT) [facility] Influenza B Negative Negative, Indeterminate [facility] Swab 07/06/2025 2:25 PM EDT Mary Ellen Orellana MD POINT OF CARE ANDRÉS T ENTER/EDIT ORDERABLES Final Result Performing Organization Address [facility]/ZIP Co de Phone Number [facility] [address] [place] [phone] * POCT Rapid Influenza A BADILLO ID NOW (07/06/2025 2:25 PM EDT) [facility] Influenza A Negative Negative, Indeterminate [facility] Swab 07/06/2025 2:25 PM EDT Mary Ellen Orellana MD POINT OF CARE ANDRÉS T ENTER/EDIT ORDERABLES Final Result Performing Organization Address [facility] Co de Phone Number [facility] [address] [place] [phone] * POCT Rapid Covid-19 BinaxNOW (07/06/2025 2:25 PM EDT) [facility] Rapid COVID Ag Negative Swab 07/06/2025 2:[address] [facility] Mary Ellen Orellana MD POINT OF CARE ANDRÉS T ENTER/EDIT ORDERABLES Final Result * POCT Glucose (07/06/2025 2:16 PM EDT) [facility] Glucose Blood, POC 122 60 - 200 mg/dL Blood Capillary blood specimen / Unknown 07/06/2025 2:16 PM EDT Mary Ellen Orellana MD POINT OF CARE ANDRÉS T ENTER/EDIT ORDERABLES Final Result * XR CERVICAL SPINE 4V (05/27/2025 10:10 AM EDT) Anatomical Region Laterality Modality Abdomen Radiographic Emmy ging 05/27/2025 10:1 0 AM EDT Narrative 05/27/2025 10:54 AM EDT [address] [address] XRay Report Signed Patient: Radha Nguyen#: [id number] : 1970 Acct:[id number] Age/Sex: 54 / F ADM Date: 05/27/25 Loc: EMMY Attending Dr: Nhi YANEZ Ordering Physician: Nhi Wisdom Date of Service: 05/27/25 Procedure(s): XR cervical spine 4V Accession Number(s): [id number] cc: Nhi Wisdom; Mary Ellen Ortega MD [...] 05/27/25 1051 DD/ 1010 TD/TT: 05/27/25 1037 Last Repairer: Procedure Note Donotuseinterpreter, Image - 05/27/[address] [address] XRay Report Signed Patient: Adeola Nguyen R#: [id number] : 1970Acct:[id number] Age/Sex: 54 / FADM Date: 05/27/25 Loc: EMMY Attending Dr: Nhi YANEZ Ordering Physician: Nhi Wisdom Date of Service: 05/27/25 Procedure(s): XR cervical spine 4V Accession Number(s): [id number] cc: Nhi Wisdom; Mary Ellen Ortega MD [...] 05/27/25 1051 DD/ 1010 TD/TT: 05/27/25 1037 Last Repairer: [facility] External Provider IMG XR PROCEDURES Edited Result - Final * XR Lumbar Spine Complete 4+ Views (05/27/2025 10:10 AM EDT) Anatomical Region Laterality Modality Spine, L-spine Radiographic Emmy ging 05/27/2025 10:1 0 AM EDT Narrative 05/27/2025 10:51 AM EDT [address] [address] XRay Report Signed Patient: Radha Nguyen R#: [id number] : 1970 Acct:[id number] Age/Sex: 54 / F ADM Date: 05/27/25 Loc: HO.ADELFO Attending Dr: Nhi YANEZ Ordering Physician: Nhi Wisdom Date of Service: 05/27/25 Procedure(s): XR lumbar spine 4V min Accession Number(s): [id number] cc: Nhi Wisdom; Mary Ellen Ortega MD [...] 05/27/25 1048 DD/ 1010 TD/TT: 05/27/25 1037 Last Repairer: Procedure Note Donotuseinterpreter, Image - 05/27/[address] [address] XRay Report Signed Patient: Adeola Nguyen R#: [id number] : 1970Acct:[id number] Age/Sex: 54 / FADM Date: 05/27/25 Loc: EMMY Attending Dr: Nhi YANEZ Ordering Physician: Nhi Wisdom Date of Service: 05/27/25 Procedure(s): XR lumbar spine 4V min Accession Number(s): [id number] cc: Nhi Wisdom; Mary Ellen Ortega MD [...] 05/27/25 1048 DD/ 1010 TD/TT: 05/27/25 1037 Last Repairer: [facility] External Provider IMG XR PROCEDURES Edited [...] AM EST Narrative 09/14/2024 12:16 PM EST [facility] [address] [place] [address] Mammography Report Signed Patient: Jennifer Nguyenline Martha Doretha#: [id number] : 1970 Acct:[id number] Age/Sex: 54 / F ADM Date: 09/14/24 Loc: HO.MAMMO Attending Dr: Mary Ellen Orellana MD Ordering Physician: Mary Ellen Ortega MD Re sults: 2Benign Findings Date of Service: 09/14/24 Follow Up: 1 Year From [facility] Mammogram Procedure(s): MM tomosynthesis diagnostic BI Accession Number(s): [id number] cc: Mary Ellen Ortega MD EXAMINATION: MM [...] by: Andreas Wall MD 09/14/2024 12:13 PM EST Dictated By: Andreas Wall MD Signed By: <Electronically signed by Andreas Wall MD in OV> 09/14/24 1213 DD/ 1100 TD/TT: 09/14/24 1137 Last Repairer: Procedure Note Donotuseinterpreter, Image - 09/14/2024 [facility] [address] [place], [place] [address] Mammography Report Signed Patient: Adeola Nguyen R#: [id number] : 1970Acct:[id number] Age/Sex: 54 / FADM Date: 09/14/24 Loc: HO.MAMMO Attending Dr: Mary Ellen Orellana MD Ordering Physician: Mary Ellen Ortega sults: 2Benign Findings Date of Service: 09/14/24Follow Up: 1 Year From [facility] ina Mammogram Procedure(s): MM tomosynthesis diagnostic BI Accession Number(s): [id number] cc: Mary Ellen Ortega MD EXAMINATION: MM [...] by: Andreas Wall MD 09/14/2024 12:13 PM [facility] Dictated By: Andreas Wall MD Signed By: <Electronically signed by Andreas Wall MD in OV> 09/14/24 1213 DD/ 1100 TD/TT: 09/14/24 1137 Last Repairer: us Mary Ellen Orellana MD IMG BI PROCEDURES Edited Result - Final * Albumin, Random Urine W/Creatinine (05/07/2024 3:30 PM EDT) Creatinine, Urine 298.37 mg/dL [facility] Microalbumin Urine 41.0 mg/L [facility] Microalbum Creatinine Ratio Ur 13.7 <30 ug/mg cr [facility] Comment:Albumin/Creatinine R atio Reference Ranges: Normal: < 30 ug/mg creatinine Microalbuminuria: 30 - 300 ug/mg creatinineClinical Albuminuria: > 300 ug/mg creatinine 05/07/2024 3:30 PM EDT 05/07/2024 6:15 PM EDT Mary Ellen Orellana MD LAB URINE ORDERAB LES Final Result [facility] [address] [place] [phone] * (ABNORMAL) Lipid Panel, Standard (05/04/2024 9:51 AM EDT) Triglycerides 230(H) <150 mg/dL [facility] Comment:Desirable Triglyceri de: less than 150 mg/dLBorderline High Triglyceride 150-199 mg/dLHigh Triglyceride: 200-499 mg/dLVery High Triglyceride: greater than or equal to 5OO mg/dL Cholesterol 142 <200 mg/dL [facility] Comment:Desirable Cholestero l: less than 200 mg/dLBorderline High Cholesterol: 200-239 mg/dLHigh Cholesterol: greater than 239 mg/dL LDL Cholesterol Calculated 60 <100 mg/dL [facility] Comment:Desirable LDL: less than 100 mg/dLNear Optimal/Above Optimal LDL: 110- 129 mg/dLBorderline High LDL: 130-159 mg/dLHigh LDL: 160-189 mg/dLVery High LDL: greater than or equal to 190 mg/dL HDL Cholesterol 36(L) >40 mg/dL [facility] Comment:Desirable HDL: great er than 40 mg/dL Note: This HDL assay may give artificially low results in patients with liver disease. Blood Venous blood specimen / Unknown 05/04/2024 9:51 AM EDT 05/04/2024 12:13 PM EDT Mary Ellen Orellana MD LAB BLOOD ORDERAB LES Final Result [facility] [address] [place] [phone] * HPV mRNA E6/E7 w/Reflex to HPV Genotypes 16, 18/45 (04/07/2024 9:47 AM EDT) HPV nRNA E6/E7 Not Detected Not Detected [facility] Comment:Methodology: Transcr iption-Mediated AmplificationThis assay detects E6/E7 viral messenger RNA (mRNA) from 14high-risk HPV types (16,18,31,33,35,39,45,51,52,56,58,59,66,68).Cervical sources are required for HPV testing.If a vaginal source from a patient who has had atotal hysterectomy with removal of cervix wassubmitted, please contact the testing laboratoryfor alternative testing options.For additional information, please refer tohttp://education.Nearbox/faq/YGF580z2(This link if provided for information/educational purposes only.)THIS TEST WAS PERFORMED AT:[facility] [place] [phone] BAE MD HPV mRNA E6/E7 TNP [facility] HPV 16 RNA TNP [facility] HPV 18/45 RNA [facility] 04/07/2024 9:47 AM EDT 04/08/2024 10:30 AM EDT Mary Ellen Orellana MD LAB CYTOLOGY [place] FLOYD Final Result [facility] [address] [place] [phone] * Pap Smear (04/07/2024 9:47 AM EDT) Swab Cervix uteri structure / Unknown 04/07/2024 9:47 AM EDT 04/08/2024 10:30 AM EDT Narrative [facility] - 04/29/2024 9:28 PM EDT ----- ------- Name: Radha Nguyen Age/Sex: 53/F : 1970 Unit#: [id number] Attend Dr: Mary Ellen Ortega MD Re04/07/24 Status: DEP [facility] Disch: ----- ------- SPEC : [id number] RECD: 04/08/24 STATUS: [facility] NUM: [id number] ANAID: 04/07/[address] [facility] [address]: CARLTON ALEGRIA Martha ENTERED: 04/08/24 SP [...] 59, 66, 68) HPV testing performed by [employer], [place], [place]. See reference laboratory portion of the [...] ----- ------- END OF REPORT Carlton Olman [facility] CYTOLOGY ORDERABLES F inal Result Performing Organization Address City/[facility]/ZIP Co de Phone Number [facility] [address] [place] [phone] * Hepatitis C Antibody with Reflex to HCV, RNA, Quantitative, Real-Time PCR (03/08/2023 9:31 AM EDT) Hepatitis C Antibody NON-REACT SVETLANA NON-REACT SVETLANA [employer] [place] [employer] Index 0.07 <1.00 [employer] [place] [employer] Comment: HCV antibody was non-reactive. There is no laboratory evidence of HCV infection. In most cases, no further action is required. However, if recent HCV exposure is suspected, a test for HCV RNA (test code 79279) is suggested. For additional information please refer to http://education.Nearbox/faq/VCI43p6 (This link is being provided for informational/ educational purposes only.) Blood Venous blood specimen / Unknown 03/08/2023 9:31 AM EDT 03/08/2023 9:32 AM EDT Narrative [facility] - 03/08/2023 8:49 PM EDT FASTING:YES FASTING: YES Michelle Gould MD LAB BLOOD ORDERABLES Final Result Performing Organization Address City/[facility]/ZIP Co de Phone Number [facility] [address], [place] [address] [employer] [place] [employer] [address] [place] [phone] * HIV-1/2 Antigen and Antibodies, Fourth Generation, with Reflexes (03/08/2023 9:31 AM EDT) HIV Antigen/Antibody, 4th Generation NON-REAC TIVE NON-REAC TIVE [facility] Comment: HIV-1 antigen and HIV-1/HIV-2 [...] purpose. For additional information please refer to http://education.Nearbox/faq/CVA936 (This link is being provided for informational/ educational purposes only.) The performance of this assay has not been clinically validated in patients less than 2 years old. Blood Venous blood specimen / Unknown 03/08/2023 9:31 AM EDT 03/08/2023 9:32 AM EDT [facility] - 03/08/2023 8:49 PM EDT FASTING:YES FASTING: YES Michelle Gould MD LAB BLOOD ORDERABLES Final Result [facility] [address], [place] [address] [employer] [place] [facility] [address] [place] [phone] from Last 3 Months or Most Recently Relevant to Health Maintenance Insurance [facility] C3 DENTAL-[facility] MEDICAID STAND ADULT Care Teams Environmental Conservation Officer Relationship Specialty Start Date End Date Mary Ellen Ortega MD [address] [place] [address] PCP - General Internal Medicine 03/15/23 Sommer Martinez PharmD [address] [place] [address] Pharmacist Internal Medicine 09/30/24
--- OUTSIDE RECORDS SUMMARY | 2025-08-16 18:26 | XMS_ITS | Encounter Summary ---
Author Organization [employer] Address [address] [facility] [address]t [place] [address] Care Team Providers Care Circuit Design Engineer Name Role Phone Mary Ellen Ortega MD Primary Care Pro vider Sommer Martinez PharmD Unavailable [phone] Encounter Details Date Type Department Care Team (Late st Contact Info) Description 08/19/2024 Orders Only [facility] [address] [place] [address] Georgette Ramsey MD [address] [place] [address] Social History Tobacco Use Types Packs/Day Years [...] AM EST Narrative 09/14/2024 12:16 PM EST [facility] [address] [place], [place] [address] Mammography Report Signed Patient: Jose J Radha Lux#: [id number] : 1970 Acct:[id number] Age/Sex: 54 / F ADM Date: 09/14/24 Loc: HO.ANGELO Attending Dr: Mary Ellen Orellana MD Ordering Physician: Mary Ellen Ortega MD [facility] Av[facility]: 2Benign Findings Date of Service: 09/14/24 Follow Up: 1 Year From Orig ina Mammogram Procedure(s): MM tomosynthesis diagnostic BI Accession Number(s): [id number] cc: Mary Ellen Ortega MD EXAMINATION: MM [...] by: Andreas Wall MD 09/14/2024 12:13 PM [facility] Dictated By: Andreas Wall MD Signed By: <Electronically signed by Andreas Wall MD in OV> 09/14/24 1213 DD/ 1100 TD/TT: 09/14/24 1137 Parcel Carrier: Procedure Note Donotuseinterpreter, Image - 09/14/2024 [facility] [address] [place] [address] [place] [address] Mammography Report Signed Patient: Adeola Nguyen R#: [id number] : 1970Acct:[id number] Age/Sex: 54 / FADM Date: 09/14/24 Loc: HO.MAMMO Attending Dr: Mary Ellen Orellana MD Ordering Physician: Mary Ellen Ortega sults: 2Benign Findings Date of Service: 09/14/24Follow Up: 1 Year From Orig ina Mammogram Procedure(s): MM tomosynthesis diagnostic BI Accession Number(s): [id number] cc: Mary Ellen Ortega MD EXAMINATION: MM [...] Andreas Wall MD 09/14/2024 12:13 PM EST RP Dictated By: Andreas Wall MD Signed By: <Electronically signed by Andreas Wall MD in OV> 09/14/24 1213 DD/ 1100 TD/TT: 09/14/24 1137 Parcel Carrier: Mary Ellen Orellana MD IMG BI PROCEDURES Edited Result - Final documented in this encounter Visit Diagnoses Not on filedocumented in this encounter Additional Health Concerns Assessment Noted Time PHQ-9 Depression Total Score: 12 024 2:32 PM EDT documented as of this encounter Care Teams Circuit Design Engineer Relationship Specialty Start Date End Date Mary Ellen Ortega MD [address] [place] [phone] PCP - General Internal Medicine 03/15/23 Sommer Martinez PharmD [address] [place] [phone] Pharmacist Internal Medicine 09/30/24 documented as of this encounter
--- OUTSIDE RECORDS SUMMARY | 2025-08-16 18:26 | XMS_ITS | Encounter Summary ---
Author Organization [employer] Address [address] [place] [address] 7t [place] [address] Care Team Providers Care Elevator Pilot Name Role Phone Mary Ellen Ortega MD Primary Care Pro vider Sommer Martinez PharmD Unavailable [phone] Reason for Visit * Reason Comments Med Refill Encounter Details Date Type Department Care Team ([facility] st Contact Info) Description 07/26/2025 Refill [facility] [address] [place] [address] Mary Ellen Ortega MD [address] [place], [place] [phone] Social History Tobacco Use Types Packs/Day Years [...] documented as of this encounter Care Teams Elevator Pilot Relationship Specialty Start Date End Date Mary Ellen Ortega MD [address] [place] [phone] PCP - General Internal Medicine 03/15/23 Sommer Martinez PharmD [address] [place] [phone] Pharmacist Internal Medicine 09/30/24 documented as of this encounter
== END 2025-08-16 16:11 | disposition home or self-care (01) ==
LOC: HO.LNP 16:10
PROVIDERS: Visit Provider Nurse Practitioner
DX: R10.A3 Flank pain, bilateral (principal); N89.8 Other specified noninflammatory disorders of vagina
CPT/HCPCS: 81001; 81515; 87086

== ENCOUNTER 2025-09-17 10:15 | Outpatient (AMB) | payer MEDICAID, SELFPAY ==
--- NOTE | 2025-09-17 10:46 | MHC.OFFVIS ---
Vital Signs 09/17/25 10:49 Height 5 ft 8 in Weight 172 lb BMI 26.1 BP 148/71 H Blood Pressure Location Rt brachial Position Sitting Pulse 79 Pulse Source Pulse Oximeter Pulse Oximetry (%) 98 Oxygen Delivery Method Room Air Intake Visit Reasons: CT FOLLOW UP Allergies Iodinated Contrast Media (IV DYE, IODINE CONTAINING) Allergy (Unknown, Verified 09/17/25 10:50) HIVES HPI Comments Details: The patient is a 55-year-old female presenting with chronic low back pain. She reports that the pain has been persistent and does not radiate to the legs, although she experiences tightness and increased pain when bending forward. The patient has a history of back surgeries, including an L3-L4 laminectomy and a PLIF at L4-L5-S1 with grafting, but continues to experience significant discomfort. The patient also has a history of non-obstructive kidney stones, which were noted during a recent CAT scan. She has diabetes mellitus with a recent A1c level of 7.5, managed with insulin therapy. The patient is allergic to IV iodine contrast, which necessitates the use of alternative imaging contrast agents. Patient reports she has not made appointment with [employer] rep for device reprogramming and plans to schedule it in our office soon. She is also interested in therapeutic VY injection to alleviate her ongoing back symptoms. Denies any recent cough, cold, infection, fever or any significant changes in medical history since last office visit. PRIOR: The patient is a 54-year-old female presenting with chronic back pain and neck pain. She was last seen in September 2023 following the removal and replacement of an [employer] system spinal cord stimulator battery. The patient reports persistent back pain for the past three weeks, which radiates to her legs, particularly in the L5-S1 distribution on the left side. She denies any recent trauma, injury or falls. 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 She denies reaching out to [employer] SCS representatives for over a year. Neck pain has been present and is exacerbated with lateral and side movements, although there is no pain when looking up or down. The pain extends to both shoulders and is associated with tightness. She has been taking cyclobenzaprine and gabapentin with minimal relief. The patient experiences urinary incontinence, which is a new symptom over the past three weeks. She has not consulted her PCP or Urologist yet. Denies any recent cough, cold, infection, fever or any other significant changes in medical history since last office visit. PRIOR 09/12/23: Patient presents today 2 weeks status post Removal and replacement RPG [employer] spinal cord stimulator battery on 08/29/[address] Stafford. The wound dressing was removed and the wound cleansed with ChloraPrep. The RPG battery wound site is clean, no pathological discharge, no redness and no swelling. The gómez are intact. There is no erythema or local temperature. Four gómez were removed. Incisional site was cleansed with ChloraPrep again. Steri-strips applied. Bacitracin ointment was applied to the wound. Tegaderm dressing was applied. Patient is wearing an abdominal binder. Patient was scheduled to see [facility] today to assess SCS device and battery charging but was told this has been rescheduled. Patient reports denies incisional site pain and reports chronic right sided low back pain with radiation into her left leg and mildly into her right lateral hip. Denies any recent cough, cold, infection, fever or other significant changes in medical history since last office visit. PRIOR: Patient presents today for follow up for low back pain with radiation to right buttock and right lateral hip. She was previously seen in April and has pending lumbar spine MRI which has not completed yet. Per MRI department, they attempted several times to contact patient to schedule but were unable. We provided MRI contact information to patient today to schedule lumbar spine MRI. Patient was seen in [facility] 2 days ago for UTI and has started antibiotic yesterday. CT abd/pelvis was taken in ER and showed degenerative changes from L3 through S1. There is posterior fixation with pedicular screws at L4, L5 and S1. Sclerotic changes seen in the right iliac bone adjacent to the SI joint. Patient is interested to undergo diagnostic right SIJ injection as next steps to confirm her pain generator. Patient also continues to reports post laminectomy syndrome related pain with bilateral radicular leg pain with SCS device in place that has not been working since last July. Patient had SCS interrogation by Anthony from [email or web address] on 05/16/23,however report has not been submitted to us yet. PRIOR: Patient is a pleasant 52 years old female with prior history of lumbar fusion with hardware and prosthetic disc interspaces at L4-L5 and L5-S1 Dr. Matthias Townsend at [place], [place] (10/13/2003), [employer] SCS in place, left AKA (01/20/2007), right femoral to distal peroneal bypass (07/04/2007), debridement and skin grafting of RLE (08/22/07), chronic anticoagulation on Plavix and aspirin, COPD, HTN, GERD, depression (CHD, [place]), diabetes (A1C-7.6 on 02/2023), peripheral neuropathy and Raynaud's disease, presents today for initial low back, neck and bilateral radicular leg pain. She presents today with request to replace her [employer] SCS battery. Patient reports her battery was not charged since last July due to multiple deaths in her family, including her , brother and sister in [place]. Patient reports she received multiple invitations to change her battery in [place] but has moved in [place] in January and has no plans to return to her original state as she reports remaining of her family is here. She arrived by wheelchair due to left AKA and is accompanied by her sister. Patient reports she lost her left leg due to Raynaud's and smoking in 2006. Patient reports back pain with bilateral radiation of pain to both legs anteriorly. Reports constant aching, hurting, tingling and stinging. Gabapentin tolerates 100 mg TID due to drowsiness. Also takes Tylenol with continued pain symptoms. She reports good pain relief when SCS device was in use. She also reports left sided neck pain that has been more recently. Patient also reports concerns for bladder and bowel incontinence for 6 months and was going to have MRI and evaluation in [place] but has moved to [place]. Denies any fever, open wounds, rash, swelling, shortness of breaths, abdominal or groin pain, weakness, or saddle anesthesia. [facility] Medical History Thumb tendonitis Edentulous maxilla Lung nodule Urinary incontinence Murmur, cardiac Family history of cancer ALBERTINA (obstructive sleep apnea) Chronic pain Severe anxiety Major depressive disorder COPD (chronic obstructive pulmonary disease) Hematuria Abdominal pain, right lower quadrant Flank pain Elevated WBC count Acidosis, lactic 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 PAD (peripheral artery disease) Mild acid reflux Raynauds disease Insulin dependent type 2 diabetes mellitus Peripheral neuropathy Non-insulin dependent type 2 diabetes mellitus Hypertension Sepsis Surgical History S/P placement of nerve stimulator S/P cholecystectomy S/P appendectomy History of esophagogastroduodenoscopy (EGD) Hx of colonoscopy Amputated left leg Family History Mother Acute eczema HTN (hypertension) Diabetes Family/Other Cancer Social History Household Members: Family Housing: Apartment Do you presently have visiting nurse or other home services: No Alcohol intake: never Patient Tobacco Use Status: Former Tobacco user Tobacco use type: Cigarette Second Hand Smoke Exposure: No Advance Directives Date on File: 12/31/23 service: No Current occupational status: disabled Review of Systems Const All systems reviewed & are unremarkable except as noted in HPI and below Physical Exam Vital Signs: Last Vital Signs Pulse 79 09/17/25 10:49 BP 148/71 H 09/17/25 10:49 Pulse Ox 98 09/17/25 10:49 Oxygen Delivery Method Room Air 09/17/25 10:49 BMI result Body Mass Index 26.1 General: Appears afebrile. Alert and oriented. Fully engaged with exam. Mood and affect appropriate. Pleasant. Follows and participates in conversation appropriately. Respiratory effort is unlabored. No cough. Able to transition from sit to stand on right leg without assistance. Arrived via wheelchair. Left AKA. Good upper extremity and RLE strength. Increased right leg and back pain with SLR testing. General: Yes no CVA tenderness Back/Spine/Pelvis Other: Limited lumbar ROM due to pain. Lumbar flexion reproduces moderate pain, limited extension reproduces mild to moderate pain. Back: no CVA tenderness Cervical Spine: cervical ROM normal, cervical muscular tenderness and No Cervical spine tenderness Thoracic/Lumbar Spine: thoracic and lumbar spine normal to inspection, Thoracic/lumbar spine scar(s), Lasegue's sign negative on the right and localized, pain with thoraco-lumbar ROM, paraspinal muscle tenderness, thoraco-lumbar ROM limited, No thoracic spinal tenderness and lumbar spinal tenderness (L4-S1) Pelvis: buttock tenderness on the right and sciatic notch tenderness on the right Sacroiliac joints: bilaterally (+Sincere's and Stinchfield reproduce LBP and lateral hip. ) tender to palpation Extrem Right lower extremity: full ROM, normal capillary refill and lower leg (multiple scars r/t peroneal bypass, debridement, skin grafting) Left lower extremity: knee (Left AKA) Results Reviewed Results Reviewed: CT lumbar spine wo IV con 08/03/25 Reason for Exam: M47.816 - Spondylosis without myelopathy or radiculopathy, lumbar region EXAM: CT lumbar spine without IV contrast TECHNIQUE: Axial imaging was performed from mid T11 through the lower sacrum coccygeal region without IV contrast. Coronal and sagittal reformatted images were generated from the original axial data set. ALARA: The examination used one or more of the following radiation dose reduction techniques: Automated exposure control, iterative reconstruction, and/or adjustment of mA and/or kV. INDICATION: M47.816 - Spondylosis without myelopathy or radiculopathy, PRIOR: X-ray on May 27, 2025 FINDINGS: There is a benign simple renal cyst involving superior pole the right kidney there are 2 stones measuring 2 mm in the right kidney not causing obstruction. There is also likely a small nonobstructing stone in the left kidney 1-2 mm. Moderate atherosclerotic calcifications are present. There are 5 [id number] lumbar segments. T12-L1: There is no disc bulge, herniation, spinal stenosis, or foraminal narrowing. L1-L2: There is mild loss disc height and circumferential broad-based disc bulge with mild facet degeneration not resulting in spinal stenosis or foraminal narrowing. L2-L3: There is mild broad-based disc bulge and ligamentum flavum thickening. There is mild facet degeneration. There is no spinal stenosis or foraminal narrowing. L3-L4: There is mild loss of disc height with endplate sclerosis, osteophytes, and vacuum phenomena. There is circumferential broad-based disc bulge. There is moderate to severe facet degeneration. Right hemilaminectomy has been performed. There is no gross spinal stenosis or foraminal narrowing. L4-L5: Posterior pedicle screws are in place. Posterior laminectomy has been performed. There is interbody spacer. There is mild right and moderate left foraminal narrowing. Spinal canal is not well-demonstrated. L5-S1: Posterior pedicle screws and rods fix level. Posterior laminectomy has been performed. There is interbody bone graft that shows ingrowth into the endplates of L5 and S1. There is no definite foraminal narrowing. Spinal canal is not well demonstrated but there is no gross spinal stenosis. IMPRESSION: Multilevel degenerative changes as outlined above. L3-L4: Right hemilaminectomy has been performed. There is no gross spinal stenosis or foraminal narrowing. PLIF L4, L5, and S1 with interbody spacer at L4-5 and graft at L5-S1. A laminectomy has also been performed. This level is. XR CERVICAL SPINE XR LUMBAR SPINE 05/27/25 LUMBAR SPINE FINDINGS: A generator projects over the left gluteal region. Wires extend above the field of view of the x-ray. Right upper quadrant clips are likely from prior cholecystectomy. There are surgical clips anterior to L5-L6. The right SI joint is sclerotic on both sides of the joint and slightly irregular. It appears stable. There are 6 lumbar segments. Vertebral body height and alignment is preserved. Posterior pedicle screws are present at L5, L6, and S1. There is nearby spacer at L5-L6. T12-L1: Unremarkable L1-L2: Unremarkable L2-L3: There is mild disc space narrowing, increased since the prior L3-L4: There is subtle retrolisthesis and mild disc space narrowing with small anterior osteophytes, slightly increased since prior. L4-L5: There is moderate disc space narrowing with anterior endplate sclerosis and osteophytes. There is facet sclerosis and osteophytes. L5-L6: Posterior fusion and interbody spacer. Spacer subsidence is stable. L6-S1: Level is fused posteriorly. There is bone graft bridging the facets and interbody space. Stable IMPRESSION: PLIF L5-L6-S1 with L5-L6 interbody spacer. Stable. CERVICAL SPINE FINDINGS: There is straightening of the cervical lordosis. There is no prevertebral soft tissue swelling. There is mild to moderate narrowing of the neural foramina at C3-4 by osteophytes, right greater than left. IMPRESSION: There is straightening of the expected cervical lordosis. This can be idiopathic, but can also be related to degenerative change, muscle spasm, or posterior soft tissue injury. Mild to moderate right greater than left neural foraminal narrowing at C3-4 by osteophytes. Assessment & Plan Assessment & Plan (1) Lumbar spondylosis: Code(s): M47.816 - Spondylosis without myelopathy or radiculopathy, lumbar region Category: Medical (2) Failed back syndrome of lumbar spine: Code(s): M96.1 - Postlaminectomy syndrome, not elsewhere classified Category: Medical (3) Lumbar radiculopathy: Code(s): M54.16 - Radiculopathy, lumbar region Category: Medical (4) Spinal cord stimulator status: Code(s): Z96.89 - Presence of other specified functional implants Category: Medical (5) Sacroiliac joint pain: Code(s): M53.3 - Sacrococcygeal disorders, not elsewhere classified Category: Medical (6) Lumbar degenerative disc disease: Code(s): M51.36 - Other intervertebral disc degeneration, lumbar region Category: Medical Plan The plan for managing the patient's chronic low back pain includes scheduling a caudal epidural steroid injection with catheter with light sedation and fluoroscopy to alleviate chronic low back pain symptom and post laminectomy syndrome. Expectations, risks and benefits were reviewed. Patient is aware she will be contacted to schedule this procedure. Patient is advised to monitor blood glucose levels closely following the planned injection, and to use a sliding scale for insulin dosing. Due to the allergy to IV iodine contrast, Gadavist, a non-iodine contrast agent, will be used for any necessary imaging under fluoroscopy. Additionally, the patient's lumbar spinal cord stimulator will be reprogrammed by an [employer] asset protection representative to optimize pain control. All questions and concerns have been answered and patient agreed with the treatment plan. Follow up after injection and sooner as needed. Patient was informed and verbally consented to the use of an ambient scribe for clinic note documentation during this visit. Medications: Refilled tizanidine 2 mg PO TID PRN 60 tabs 5RF muscle spasticity 30 days M47.812 - Spondylosis without myelopathy or radiculopathy, cervical region, M48.061 - Spinal stenosis, lumbar region without neurogenic claudication, M62.838 - Other muscle spasm Coding Level of Care Code Est Pt Level 4 (82832) Complex EM visit Add On G2211 Diagnoses Lumbar spondylosis M47.816 Failed back syndrome of lumbar spine M96.1 Lumbar radiculopathy M54.16 Spinal cord stimulator status Z96.89 Sacroiliac joint pain M53.3 Lumbar degenerative disc disease M51.36
[2025-09-17 10:49] VITALS: BP 148/71; PULSE 79; O2SAT 98; BMI 26.1
--- OUTSIDE RECORDS SUMMARY | 2025-09-17 12:02 | XMS_ITS | Patient Health Record ---
Author Organization [facility] [address] [facility] [address] Care Team Providers Care Poker Machine Attendant Name Role Phone Larry Carranza Unavailable Unavailable CelCastillo blakeanda Unavailable Unavailable Reason For Referral No Information Plan Of Treatment No Information Insurance Providers Payer Name Payer Address Payer Phone Subscriber Number Group Number Insured Name Patient Relationship to Insured Coverage Start Date Coverage End Date [employer] Medicaid [address] [place] [phone] [id number] Radha Lux Self - patient is the insured
--- OUTSIDE RECORDS SUMMARY | 2025-09-17 12:02 | XMS_ITS | Encounter Summary ---
Author Organization [employer] Address [address] [place] [address] Care Team Providers Care Search Manager Name Role Phone Mary Ellen Ortega MD Primary Care Pro vider Sommer Martinez PharmD Unavailable [phone] Mally Guzman PharmD Unavailable [phone] Reason for Visit * Reason Comments Med Refill Encounter Details Date Type Department Care Team (Late st Contact Info) Description 02/11/2025 Refill [facility] MEDICINE [address] [place] [address] Mary Ellen Ortega MD [address] [place], [place] [phone] Tenderness over maxillary sinus Social History Tobacco [...] Care Team (Late st Contact Info) Description 09/21/2025 9:00 AM EST Medication Management [facility] MEDICINE [address] [place] [address] Mally Guzman, PharmD [address] [place] [address] documented as of this encounter Visit Diagnoses Diagnosis Tenderness over maxillary sinus documented in this encounter Additional Health Concerns Assessment Noted Time PHQ-9 Depression Total Score: 12 024 2:32 PM EDT documented as of this encounter Care Teams Search Manager Relationship Specialty Start Date End Date Mary Ellen Ortega MD [address] [place] [address] PCP - General Internal Medicine 03/15/23 Sommer Martinez, PharmD [address] [place] [address] Pharmacist Internal Medicine 09/30/24 08/25/25 Mally Guzman, ElizabethD [address] [place] [address] Pharmacist Pharmacy 08/27/25 documented as of this encounter
--- OUTSIDE RECORDS SUMMARY | 2025-09-17 12:02 | XMS_ITS | Encounter Summary ---
Author Organization [employer] Address [address] [facility] 7t [place] [address] Care Team Providers Care Waste Specialist Name Role Phone Mary Ellen Ortega MD Primary Care Pro vider Sommer Martinez PharmD Unavailable [phone] Mally Guzman PharmD Unavailable [phone] Reason for Visit * Reason Comments Med Refill Encounter Details Date Type Department Care Team (Late st Contact Info) Description 02/26/2025 Refill [facility] MEDICINE [address] [place], [place] [phone] Mary Ellen Ortega MD [address] [place], [place] [phone] Social History Tobacco Use Types Packs/Day Years [...] Description 09/21/2025 9:00 AM EST Medication Management [facility] MEDICINE [address] [place] [phone] Mally Guzman PharmD [address] [place] [address] documented as of this encounter Visit Diagnoses Not on filedocumented in this encounter Additional Health Concerns Assessment Noted Time PHQ-9 Depression Total Score: 12 024 2:32 PM EDT documented as of this encounter Care Teams Waste Specialist Relationship Specialty Start Date End Date Mary Ellen Ortega MD [address] [place] [id number] PCP - General Internal Medicine 03/15/23 Sommer Martinez, ElizabethD [address] [place] [address] Pharmacist Internal Medicine 09/30/24 08/25/25 Mally Guzman, ElizabethD [address] [place] [address] Pharmacist Pharmacy 08/27/25 documented as of this encounter
--- OUTSIDE RECORDS SUMMARY | 2025-09-17 12:02 | XMS_ITS | Encounter Summary ---
Author Organization [employer] Address [address] [facility] [address] [place] [address] Care Team Providers Care Supervisor Of Operations Name Role Phone Mary Ellen Ortega MD Primary Care Pro vider Sommer Martinez PharmD Unavailable [phone] Mally Guzman PharmD Unavailable [phone] Reason for Visit * Reason Onset Date Comments Appointment Request 03/24/2025 Encounter Details Date Type Department Care Team (Late st Contact Info) Description 03/24/2025 Telephone [facility] MEDICINE [address] [place], [place] [phone] Mary Ellen Ortega MD [address] [place] [address] Appointment Request Social History Tobacco Use Types [...] Questionnaire-9 Score Answer Date of Assessment Author 03/26/2025 10:46 AM Malcolm García * How [...] annoyed or irritable 2 03/11 10:46 AM EDT Malcolm Davis Feeling afraid as if somethi ng awful [...] Description 09/21/2025 9:00 AM EST Medication Management [facility] MEDICINE [address] [place] [phone] Mally Guzman PharmD [address] [place] [phone] documented as of this encounter Visit Diagnoses Not on filedocumented in this encounter Additional Health Concerns Assessment Noted Time PHQ-9 Depression Total Score: 12 024 2:32 PM EDT documented as of this encounter Care Teams Supervisor Of Operations Relationship Specialty Start Date End Date Mary Ellen Ortega MD [address] [place] [address] PCP - General Internal Medicine 03/15/23 Sommer Martinez PharmD [address] [place] [phone] Pharmacist Internal Medicine 09/30/24 08/25/25 Mally Guzman PharmD [address] [place] [phone] Pharmacist Pharmacy 08/27/25 documented as of this encounter
--- OUTSIDE RECORDS SUMMARY | 2025-09-17 12:02 | XMS_ITS | Encounter Summary ---
Author Organization [email or web address] Address [address] [facility] 7t [place] [address] Care Team Providers Care Public Service Officer Name Role Phone Mary Ellen Ortega MD Primary Care Pro vider Sommer Martinez PharmD Unavailable [phone] Mally Guzman PharmD Unavailable [phone] Reason for Visit * Reason Comments Med Refill Encounter Details Date Type Department Care Team (Late st Contact Info) Description 03/08/2024 Refill [facility] MEDICINE [address] [place], [place] [phone] Patience Garcia ANP [address] [place], [place] [phone] Social History Tobacco Use Types Packs/Day Years [...] with others, in a hotel, in a long-term, living outside on the street, on a [...] Description 09/21/2025 9:00 AM EST Medication Management [facility] MEDICINE [address] [place] [phone] Mally Guzman PharmD [address] [place] [address] documented as of this encounter Visit Diagnoses Not on filedocumented in this encounter Additional Health Concerns Assessment Noted Time PHQ-9 Depression Total Score: 17 024 12:38 PM EST documented as of this encounter Care Teams Public Service Officer Relationship Specialty Start Date End Date Mary Ellen Ortega MD [address] [place] [phone] PCP - General Internal Medicine 03/15/23 Sommer Martinez, ElizabethD [address] [place] [address] Pharmacist Internal Medicine 09/30/24 08/25/25 Mally Guzman, PharmD [address] [place] [phone] Pharmacist Pharmacy 08/27/25 documented as of this encounter
--- OUTSIDE RECORDS SUMMARY | 2025-09-17 12:03 | XMS_ITS | Encounter Summary ---
Author Organization [employer] Address [address] [facility] 7t [place] [address] Care Team Providers Care Commercial Driver'S License Driver Name Role Phone Mary Ellen Ortega MD Primary Care Pro vider Sommer Martinez PharmD Unavailable [phone] Mally Guzman PharmD Unavailable [phone] Reason for Visit * Reason Comments Med Refill Encounter Details Date Type Department Care Team (Late st Contact Info) Description 05/27/2025 Refill [facility] MEDICINE [address] [place], [place] [phone] Mary Ellen Rosario MD 230 [place], [place] [phone] Social History Tobacco Use Types Packs/Day Years [...] Description 09/21/2025 9:00 AM EST Medication Management [facility] MEDICINE [address] [place] [address] Mally Guzman PharmD [address] [place] [address] documented as of this encounter Visit Diagnoses Not on filedocumented in this encounter Additional Health Concerns Assessment Noted Time PHQ-9 Depression Total Score: 11 025 10:50 AM EDT documented as of this encounter Care Teams Commercial Driver'S License Driver Relationship Specialty Start Date End Date Mary Ellen Ortega MD 230 [place] [address] PCP - General Internal Medicine 03/15/23 Sommer Martinez, PharmD [address] [place] [address] Pharmacist Internal Medicine 09/30/24 08/25/25 Mally Guzman, ElizabethD [address] [place] [address] Pharmacist Pharmacy 08/27/25 documented as of this encounter
--- OUTSIDE RECORDS SUMMARY | 2025-09-17 12:03 | XMS_ITS | Patient Health Record ---
Author Organization [employer] Address [address] [place] [address] [place] [address] Support Name Relationship Address Phone Radha Lux Guarantor Unknown Reason For Referral No Information Plan Of Treatment No Information Insurance Providers Payer Name Payer Address Payer Phone Subscriber Number Group Number Insured Name Patient Relationship to Insured Coverage Start Date Coverage End Date [facility] [address] [place] [id number] Radha Lux Self - patient is the insured
--- OUTSIDE RECORDS SUMMARY | 2025-09-17 12:03 | XMS_ITS | Encounter Summary ---
Author Organization [employer] Address [address] [facility] 7t [place] [address] Care Team Providers Care Shop Fitter Name Role Phone Mary Ellen Ortega MD Primary Care Pro vider Sommer Martinez PharmD Unavailable [phone] Mally Guzman PharmD Unavailable [phone] Encounter Details Date Type Department Care Team (Late st Contact Info) Description 08/19/2024 Orders Only [facility] MEDICINE [address] [place] [address] Georgette Ramsey MD 230 [place], [place] [phone] Social History Tobacco Use Types Packs/Day Years [...] with others, in a hotel, in a longterm, living outside on the street, on a [...] Description 09/21/2025 9:00 AM EST Medication Management [facility] MEDICINE [address] [place] [address] Mally Guzman, PharmD 230 [place] [address] documented as of this encounter Procedures Procedure Name Priority Date/Time Associated Diagnosis Comments BI MAMMOGRAM DIAGNOSTIC TOMOSYNTHESIS BILATERAL Routine 09/14/2024 11:00 AM EST documented in this encounter Results * BI Mammogram Diagnostic Tomosynthesis Bilateral (09/14/2024 11:00 AM EST) Anatomical Region Laterality Modality Breast Bilateral Mammography 09/14/2024 11:0 0 AM EST Narrative 09/14/2024 12:16 PM EST [facility] [address] [place] [address] Dr. [place], [place] [address] Mammography Report Signed Patient: Radha Nguyen#: [id number] : 1970 Acct:[id number] Age/Sex: 54 / F ADM Date: 09/14/24 Loc: HO.MAMMO Attending Dr: Mary Ellen Orellana MD Ordering Physician: Mary Ellen Ortega MD Re sults: 2Benign Findings Date of Service: 09/14/24 Follow Up: 1 Year From Orig ina Mammogram Procedure(s): MM tomosynthesis diagnostic BI Accession Number(s): [id number] cc: Mary Ellen Ortega MD EXAMINATION: MM [...] by: Andreas Wall MD 09/14/2024 12:13 PM [facility] Dictated By: Andreas Wall MD Signed By: <Electronically signed by Andreas Wall MD in OV> 09/14/24 1213 DD/ 1100 TD/TT: 09/14/24 1137 Commissary Production Supervisor: Procedure Note Donotuseinterpreter, Image - 09/14/2024 [facility] [address] [place] [address] Mammography Report Signed Patient: Adeola Nguyen R#: [id number] : 1970Acct:[id number] Age/Sex: 54 / FADM Date: 09/14/24 Loc: HO.MAMMO Attending Dr: Mary Ellen Orellana MD Ordering Physician: Mary Ellen Ortega sults: 2Benign Findings Date of Service: 09/14/24Follow Up: 1 Year From Orig inal Mammogram Procedure(s): MM tomosynthesis diagnostic BI Accession Number(s): [id number] cc: Mary Ellen Ortega MD EXAMINATION: MM [...] by: Andreas Wall MD 09/14/2024 12:13 PM [facility] Dictated By: Andreas Wall MD Signed By: <Electronically signed by Andreas Wall MD in OV> 09/14/24 1213 DD/ 1100 TD/TT: 09/14/24 1137 Commissary Production Supervisor: Mary Ellen Orellana MD IMG BI PROCEDURES Edited Result - Final documented in this encounter Visit Diagnoses Not on filedocumented in this encounter Additional Health Concerns Assessment Noted Time PHQ-9 Depression Total Score: 12 024 2:32 PM EDT documented as of this encounter Care Teams Shop Fitter Relationship Specialty Start Date End Date Mary Ellen Ortega MD 230 [place], [place] [phone] PCP - General Internal Medicine 03/15/23 Sommer Martinez PharmD [address] [place] [address] Pharmacist Internal Medicine 09/30/24 08/25/25 Mally Guzman PharmD 230 [place] [address] Pharmacist Pharmacy 08/27/25 documented as of this encounter
--- OUTSIDE RECORDS SUMMARY | 2025-09-17 12:03 | XMS_ITS | Encounter Summary ---
Author Organization [employer] Address 75 [facility] 7t [place] [address] Care Team Providers Care Pipeline Dispatch Operator Name Role Phone Mary Ellen Oretga MD Primary Care Pro vider Sommer Martinez PharmD Unavailable [phone] Mally Guzman PharmD Unavailable [phone] Encounter Details Date Type Department Care Team (Late st Contact Info) Description 05/27/2025 Refill [facility] [address] [place] [address] Mary Ellen Ortega MD 230 [place] [address] Social History Tobacco Use Types Packs/Day Years [...] Description 09/21/2025 9:00 AM EST Medication Management [facility] MEDICINE 230 [place] [address] Mally Guzman, PharmD 230 [place] [address] documented as of this encounter Visit Diagnoses Not on filedocumented in this encounter Additional Health Concerns Assessment Noted Time PHQ-9 Depression Total Score: 11 025 10:50 AM EDT documented as of this encounter Care Teams Pipeline Dispatch Operator Relationship Specialty Start Date End Date Mary Ellen Ortega MD [address] [place] [address] PCP - General Internal Medicine 03/15/23 Sommer Martinez, PharmD [address] [place] [address] Pharmacist Internal Medicine 09/30/24 08/25/25 Mally Guzman, PharmD [address] [place] [address] Pharmacist Pharmacy 08/27/25 documented as of this encounter
--- OUTSIDE RECORDS SUMMARY | 2025-09-17 12:03 | XMS_ITS | Encounter Summary ---
Author Organization [employer] Address [address] [facility] 7t [place] [address] Care Team Providers Care Sign Letterer Name Role Phone Mary Ellen Ortega MD Primary Care Pro vider Sommer Martinez PharmD Unavailable [phone] Mally Guzman PharmD Unavailable [phone] Encounter Details Date Type Department Care Team (Late st Contact Info) Description 08/11/2025 Results Follow-Up [facility] MEDICINE 230 [place] [address] Mary Ellen Ortega MD 230 [place] [address] CBC auto differential, Hepatic Function Panel, Basic [...] Description 09/21/2025 9:00 AM EST Medication Management [facility] MEDICINE [address] [place], [place] [phone] Mally Guzman, PharmD 230 [place], [place] [phone] documented as of this encounter Visit Diagnoses Not on filedocumented in this encounter Additional Health Concerns Assessment Noted Time PHQ-9 Depression Total Score: 11 025 10:50 AM EDT documented as of this encounter Care Teams Sign Letterer Relationship Specialty Start Date End Date Mary Ellen Ortega MD [address] [place] [address] PCP - General Internal Medicine 03/15/23 Sommer Martinez, ElizabethD [address] [place] [address] Pharmacist Internal Medicine 09/30/24 08/25/25 Mally Guzman PharmD [address] [place] [address] Pharmacist Pharmacy 08/27/25 documented as of this encounter
--- OUTSIDE RECORDS SUMMARY | 2025-09-17 12:03 | XMS_ITS | Encounter Summary ---
Author Organization [employer] Address [address] [place] [address] 7t [place] [address] Care Team Providers Care Director Human Services Name Role Phone Mary Ellen Ortega MD Primary Care Pro vider Sommer Martinez PharmD Unavailable [phone] Mally Guzman PharmD Unavailable [phone] Reason for Visit * Reason Onset Date Comments Referral 04/01/2023 Encounter Details Date Type Department Care Team (Late st Contact Info) Description 04/01/2023 Telephone [facility] MEDICINE 230 [place], [place] [phone] Mary Ellen Ortega MD [address] [place], [place] [phone] Referral Social History Tobacco Use Types Packs/Day [...] 11:19 AM EDT Pt was seen by [facility] on 03/15/23 and appears to have an upcoming appt with N on 04/05/23. Unsure if ptstill has pending appt. Will send message to [facility] to outreach pt regarding request. * Telephone Encounter - Sawyer Quiñonez - 04/01/2023 10:16 AM EDT Tc from pt requesting status on referral for a psychiatrist. Please contact pt at [phone] documented in this encounter Plan of Treatment Upcoming Encounters Date Type Department Care Team (Late st Contact Info) Description 09/21/2025 9:00 AM EST Medication Management [facility] MEDICINE [address] [place] [address] Mally Guzman PharmD [address] [place] [address] documented as of this encounter Visit Diagnoses Not on filedocumented in this encounter Additional Health Concerns Assessment Noted Time PHQ-9 Depression Total Score: 18 023 1:27 PM EDT documented as of this encounter Care Teams Director Human Services Relationship Specialty Start Date End Date Mary Ellen Ortega MD [address] [place] [address] PCP - General Internal Medicine 03/15/23 Sommer Martinez PharmD [address] [place] [address] Pharmacist Internal Medicine 09/30/24 08/25/25 Mally Guzman, ElizabethD [address] [place] [address] Pharmacist Pharmacy 08/27/25 documented as of this encounter
--- OUTSIDE RECORDS SUMMARY | 2025-09-17 12:03 | XMS_ITS | Encounter Summary ---
Author Organization [employer] Address 75 [facility] 7t [place] [address] Care Team Providers Care Advanced Practice Nurse Name Role Phone Mary Ellen Ortega MD Primary Care Pro vider Sommer Martinez PharmD Unavailable [phone] Mally Guzman PharmD Unavailable [phone] Encounter Details Date Type Department Care Team (Late st Contact Info) Description 08/16/2025 Results Follow-Up [facility] 230 [place] [address] Evy Elizabeth NP 230 [place] [address] Bacterial Vaginosis Social History Tobacco Use Types Packs/Day Years [...] Description 09/21/2025 9:00 AM EST Medication Management [facility] MEDICINE [address] [place] [address] Mally Guzman PharmD [address] [place] [address] documented as of this encounter Visit Diagnoses Diagnosis Candidiasis of vagina- Primary Candidiasis of vulva and vagina documented in this encounter Additional Health Concerns Assessment Noted Time PHQ-9 Depression Total Score: 11 025 10:50 AM EDT documented as of this encounter Care Teams Advanced Practice Nurse Relationship Specialty Start Date End Date Mary Ellen Ortega MD 230 [place] [address] PCP - General Internal Medicine 03/15/23 Sommer Martinez, PharmD 230 [place] [address] Pharmacist Internal Medicine 09/30/24 08/25/25 Mally Guzman, ElizabethD 230 [place] [address] Pharmacist Pharmacy 08/27/25 documented as of this encounter
--- OUTSIDE RECORDS SUMMARY | 2025-09-17 12:03 | XMS_ITS | Encounter Summary ---
Author Organization [employer] Address [address] [facility] 7t [place] [address] Care Team Providers Care Scholarship Counselor Name Role Phone Mary Ellen Ortega MD Primary Care Pro vider Sommer Martinez PharmD Unavailable [phone] Mally Guzman PharmD Unavailable [phone] Reason for Visit * Reason Comments Med Refill Encounter Details Date Type Department Care Team (Late st Contact Info) Description 07/26/2025 Refill [facility] MEDICINE 230 [place], [place] [phone] Mary Ellen Ortega MD 230 [place] [address] Social History Tobacco Use Types Packs/Day Years [...] Description 09/21/2025 9:00 AM EST Medication Management [facility] MEDICINE [address] [place] [address] Mally Guzman PharmD 230 [place] [address] documented as of this encounter Visit Diagnoses Not on filedocumented in this encounter Additional Health Concerns Assessment Noted Time PHQ-9 Depression Total Score: 11 025 10:50 AM EDT documented as of this encounter Care Teams Scholarship Counselor Relationship Specialty Start Date End Date Mary Ellen Ortega MD [address] [place] [address] PCP - General Internal Medicine 03/15/23 Sommer Martinez, ElizabethD 230 [place] [address] Pharmacist Internal Medicine 09/30/24 08/25/25 Mally Guzman, ElizabethD [address] [place] [address] Pharmacist Pharmacy 08/27/25 documented as of this encounter
--- OUTSIDE RECORDS SUMMARY | 2025-09-17 12:03 | XMS_ITS | Encounter Summary ---
Author Organization [employer] Address [address] [place] [address] 7[address] [place] [address] Care Team Providers Care Commercial Real Estate Paralegal Name Role Phone Mary Ellen Ortega MD Primary Care Pro vider Sommer Martinez PharmD Unavailable [phone] Mally Guzman PharmD Unavailable [phone] Reason for Visit * Reason Onset Date Comments Medication Question 05/07/2023 Encounter Details Date Type Department Care Team (Late st Contact Info) Description 05/07/2023 Telephone [facility] MEDICINE 230 [place], [place] [phone] Mary Ellen Ortega MD 230 [place], [place] [phone] Medication Question Social History Tobacco Use Types [...] Recorded In the last 10 days, have jose u been in contact with someone who [...] 9:00 AM EST Medication Management [facility] MEDICINE [address] [place] [address] Mally Guzman PharmD [address] [place] [address] documented as of this encounter Visit Diagnoses Not on filedocumented in this encounter Additional Health Concerns Assessment Noted Time PHQ-9 Depression Total Score: 18 023 1:27 PM EDT documented as of this encounter Care Teams Commercial Real Estate Paralegal Relationship Specialty Start Date End Date Mary Ellen Ortega MD [address] [place] [address] PCP - General Internal Medicine 03/15/23 Sommer Martinez PharmD [address] [place] [phone] Pharmacist Internal Medicine 09/30/24 08/25/25 Mally Guzman PharmD [address] [place] [address] Pharmacist Pharmacy 08/27/25 documented as of this encounter
--- OUTSIDE RECORDS SUMMARY | 2025-09-17 12:04 | XMS_ITS | Encounter Summary ---
Author Organization [employer] Address 75 [facility] 7t [place] [address] Care Team Providers Care Face Man Name Role Phone Mary Ellen Ortega MD Primary Care Pro vider Sommer Martinez PharmD Unavailable [phone] Mally Guzman PharmD Unavailable [phone] Reason for Visit * Reason Comments Med Refill Encounter Details Date Type Department Care Team (Late st Contact Info) Description 10/01/2024 Refill [facility] MEDICINE 230 [place], [place] [phone] Mary Ellen Ortega MD [address] [place] [address] Social History Tobacco Use Types Packs/Day Years [...] Description 09/21/2025 9:00 AM EST Medication Management [facility] MEDICINE [address] [place] [address] Mally Guzman, PharmD [address] [place] [address] documented as of this encounter Visit Diagnoses Not on filedocumented in this encounter Additional Health Concerns Assessment Noted Time PHQ-9 Depression Total Score: 12 024 2:32 PM EDT documented as of this encounter Care Teams Face Man Relationship Specialty Start Date End Date Mary Ellen Ortega MD [address] [place] [address] PCP - General Internal Medicine 03/15/23 Sommer Martinez, ElizabethD [address] [place] [address] Pharmacist Internal Medicine 09/30/24 08/25/25 Mally Guzman, Vicki [address] [place] [address] Pharmacist Pharmacy 08/27/25 documented as of this encounter
--- OUTSIDE RECORDS SUMMARY | 2025-09-17 12:04 | XMS_ITS | Clinical Summary ---
Author Organization [employer] Address [address] [place] [address] [address] [place] [address] Care Team Providers Care Global Mobility Specialist Name Role Phone Mary Ellen Ortega MD Primary Care Pro vider Mally Guzman PharmD Unavailable [phone] Allergies Active Allergy Reactions Criticality Noted Date Comments Azithromycin Rash Low 05/01/2023 Fish Allergy 05/13/2025 Fish Oil 07/25/2023 Iodinated Contrast Media Angioedema 03/05/2023 Nitrofurantoin Itching 05/13/2025 FACIAL ERYTHEMA Shrimp Flavor Agent (Non-Screening) 05/13/2025 Medications * This document contains information received from the source organization and may not represent a complete record from that organization. Blood Pressure Monitoring (Omron 3 Series BP [...] by mouth in the morning. 024 Active betamethasone, augmented, (Diprolene) 0.05 % ointmentIndicati ons:Dyshidrotic eczema Apply topically every 12 (twelve) hours if needed (affected skin ,dermatitis). APPLY TO THE AFFECTED AREA(S) TOPICALLY TWICE DAILY 15 g Active desonide (DesOwen) 0.05 % creamIndications :Seborrheic dermatitis APPLY TOPICALLY TO FACE 1-2 TIMES EVERY DAY NEEDED 15 g Active hydrOXYzine HCl (Atarax) 10 MG tablet TAKE 1 TABLET BY MOUTH AT BEDTIME NEEDED FOR SLEEP 30 tablet Active mirtazapine (Remeron) 15 MG tablet Take 15 mg by mouth at bedtime. Active Continuous Glucose Floor Scrubber (FreeStyle Taco 3 Ida) device 1 each Once per day. Use as directed for CGM 1 each Active Fluticasone Furoate-Vilanter ol (Breo Ellipta) 100-25 MCG/ACT aerosol powder Inhale 1 Inhalation Once per day. 60 each Active acetaminophen (Tylenol Extra Strength) 500 MG tabletIndication s:Sinus pressure TAKE 1 TO 2 TABLETS BY MOUTH UP TO THREE TIMES DAILY NEEDED FOR PAIN 45 tablet Active glucose blood (FreeStyle Precision Geoff Test) test strip Use to test blood sugar 2 times daily in case of CGM failure or extremes of BG 50 each 2025 Active FLUoxetine (PROzac) 20 MG capsule Take 20 mg by mouth in the morning. Active EPINEPHrine (Epipen) 0.3 MG/0.3ML injection syringe Inject 0.3 mL (0.3 mg) as directed 1 (one) time for 1 dose. use as directed for allergic reaction and then call 911 1 each 2 Active insulin pen needle (TechLite Pen Bridger) 32G x 4 mm [facility] [place] DIRECTED FOUR TIMES DAILY 100 each 3 Active Trulicity 1.5 MG/0.5ML solution auto-injector INJECT ONE PEN (=1.5MG) SUBCUTANEOUSLY ONCE A WEEK DIRECTED 2 mL Active cetirizine (ZyrTEC) 10 MG tablet TAKE 1 TABLET BY MOUTH AT BEDTIME 90 tablet 1 Active gabapentin (Neurontin) 100 MG capsule Take 200 mg by mouth in the morning and 200 mg at noon and 200 mg in the evening. Active sodium chloride (Solano) 0.65 % nasal spray Administer 1 spray [...] mouth at bedtime. 90 tablet 025 Active ketoconazole (NIZOral) 2 % shampooIndicatio ns:Seborrheic dermatitis APPLY TOPICALLY TO SCALP TWICE DAILY. LEAVE ON FOR 5 MINUTES THEN RINSE 120 mL 1 Active valsartan-hydroC HLOROthiazide (Diovan-HCT) 320-25 MG tablet TAKE 1 TABLET BY MOUTH EVERY MORNING 90 tablet 1 Active potassium chloride CR (Klor-Con) 10 MEQ ER tablet TAKE 1 TABLET BY MOUTH EVERY MORNING 90 tablet 1 Active metFORMIN (Glucophage) 500 MG tablet TAKE 1 TABLET BY MOUTH EVERY MORNING 90 tablet 1 Active montelukast (Singulair) 10 MG tablet TAKE 1 TABLET BY MOUTH AT BEDTIME 90 tablet 1 Active clotrimazole (Lotrimin) 1 % vaginal creamIndications :Vulvovaginal Candidiasis Insert one applicator per vagina at bedtime for 7 nights 45 g Active Continuous Glucose Sensor (FreeStyle Taco 2 Plus Sensor) miscIndications: Type 2 diabetes mellitus with other circulatory complication, with long-term current use of insulin (HCC) 1 Device every 15 days. Apply 1 sensor as directed every 15 days for CGM 2 each Active Insulin Disposable Pump (Omnipod 5 Libre2 G6 Intro G5) kitIndications:T ype 2 diabetes mellitus with other circulatory complication, with long-term current use of insulin ([facility]) 1 Device Once per day. Use as directed for insulin administration. One kit = 30 day supply. 1 kit Active Insulin Disposable Pump (Omnipod 5 Libre2 Plus G6 Pods) miscIndications: Type 2 diabetes mellitus with other circulatory complication, with long-term current use of insulin (HCC) 1 Device every 3 (three) days. Wear daily for insulin administration. Apply a new pod every 72 hours as directed.) 10 each 11 025 Active Insulin Lispro 100 UNIT/ML solutionIndicati ons:Type 2 diabetes mellitus with other circulatory complication, with long-term current use of insulin ([facility]) Inject 2 mL (200 Units) as directed Use as directed. Every 3 days with omnipod system 20 mL 3 025 Active insulin lispro (HumaLOG) 100 UNIT/ML injectionIndicat ions:Type 2 diabetes mellitus with other circulatory complication, with long-term current use of insulin ([facility]) INJECT 10 UNITS SUBCUTANEOUSLY THREE TIMES DAILY BEFORE MEALS 15 mL 3 025 Active insulin glargine (Lantus SoloStar) 100 UNIT/ML penIndications:T ype 2 diabetes mellitus with other circulatory complication, with long-term current use of insulin ([facility]) Inject 27 Units under the skin Once per day 15 mL 3 025 Active Oral Medication Containers misc 023 2024 Discontinued(M ed list cleanup (will not trigger notification to Pharmacy)) pantoprazole (ProtoNix) 40 MG EC tablet Take 40 mg by mouth in the morning. 024 2024 Discontinued(M ed list cleanup (will not trigger notification to Pharmacy)) sodium chloride (Solano) 0.65 % nasal sprayIndications :Tenderness over maxillary sinus Administer 1 spray into each nostril if needed for congestion. 15 mL 1 024 2024 Incruse Ellipta 62.5 MCG/ACT aerosol powder INHALE 1 PUFF BY MOUTH EVERY DAY AT THE SAME TIME RINSE MOUTH AFTER USING 30 each 2 024 2024 Discontinued(M ed list cleanup (will not trigger notification to Pharmacy)) Continuous Glucose Sensor (FreeStyle Taco 3 Plus Sensor) misc 1 each every 15 days. Apply 1 every 15 days as directed for CGM 2 each 2024 Discontinued(O ther) olopatadine (Patanol) 0.1 % ophthalmic solutionIndicati ons:Sinus pressure 2 drops up to twice daily as needed for eye itching/allergie s 5 mL 2024 Discontinued(M ed list cleanup (will not trigger notification to Pharmacy)) insulin lispro (HumaLOG) 100 UNIT/ML injectionIndicat ions:Type 2 diabetes mellitus with other circulatory complication, with long-term current use of insulin (HCC) INJECT 10 UNITS SUBCUTANEOUSLY THREE TIMES DAILY BEFORE MEALS 15 mL 5 2024 Discontinued(R eorder (will not trigger notification to Pharmacy)) tiZANidine (Zanaflex) 2 MG tablet Take 2 mg by mouth if needed in the morning, at noon, and at bedtime for muscle spasms. 2024 Discontinued(M ed list cleanup (will not trigger notification to Pharmacy)) cefpodoxime (Vantin) 200 MG tablet Take 200 mg by mouth with breakfast and with evening meal. 025 2024 Discontinued(M ed list cleanup (will not trigger notification to Pharmacy)) ondansetron ODT (Zofran-ODT) 4 MG disintegrating tablet DISSOLVE 1 TABLET ENCIMA DE LENGUA EVERY 8 HOURS NEEDED FOR NAUSEA AND VOMITING 025 2024 Discontinued(M ed list cleanup (will not trigger notification to Pharmacy)) insulin glargine (Lantus SoloStar) 100 UNIT/ML pen Inject 27 Units under the skin Once per day 3 mL 11 025 2024 Discontinued(R eorder (will not trigger notification to Pharmacy)) fluconazole (Diflucan) 150 MG tabletIndication s:Candidiasis of vagina Take 1 tablet by mouth today. 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 Radha is engaged with psychiatry services with [facility]; reports medication is working and helping to decrease sxs. Still waiting for OP individual therapy (currently on wait list). During today's consult, clinician engaged patient with active, reflective listening. Reviewed and assessed for risk, current stressors and protective factors. Pt agreed to follow-up with [facility] regarding referral placed. clinician will be available [...] and housing. Radha has recently moved to [place] after her . 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 Radha is engaged with psychiatry services with [facility]; reports medication is working and helping to decrease sxs. Still waiting for OP individual therapy (currently on wait list). During today's consult, clinician engaged patient with active, reflective listening. Reviewed and assessed for risk, current stressors and protective factors. Pt agreed to follow-up with [facility] regarding referral placed. clinician will be available [...] and housing. Radha has recently moved to [place] after her . She's currently taking care [...] pap smear will repeat in 2023 -MM 2017: No report found -but states normal ?---referred [...] and no indication for fibrates -referred to system development manager and knit tubing dyer at previous visit -[facility] -L.A will check [...] needed if LDL > 70 -referred to system development manager and knit tubing dyer at previous visit -[facility] Alba.A will check [...] needed if LDL > 70 -referred to system development manager and knit tubing dyer at previous visit -[facility] El will check [...] statins -low dose lipitor -referred today to system development manager and knit tubing dyer -will repeat DM labs and fasting lipids [...] Hx of AKA (above knee amputation), left ([facility] ) 03/05/2023 Assessment & Plan [...] wheelchair -continue ASA,plavix -routed this note to [facility] x wheelchair request and already started [...] and housing. Radha has recently moved [place] after her . She's currently taking care [...] protective factors. Pt agreed to follow-up with [facility] regarding referral placed (I printed out letter [...] and housing. Radha has recently moved to [place] after her . She's currently taking care [...] and exercise,discussed healthy life style -referred x retail event assistant Assessment & Plan (05/31/2023 10:05 PM EDT): Advised pt to improve diet and exercise,discussed healthy life style -referred today x retail event assistant Assessment & Plan (05/01/2023 7:17 PM EDT): Advised pt to improve diet and exercise,discussed healthy life style -will discuss about retail event assistant referral at next visit Skin lesion 05/01/2023 07/25/2023 Assessment & Plan (05/31/2023 10:09 PM EDT): Reports chronic skin lesions in scalp and palms using chronically topical steroids saw electrical estimator s/p resection of skin tags but has mils surrounding erythema -mupirocin TID x 7 days Assessment & Plan (05/01/2023 7:19 PM EDT): Reports chronic skin lesions in scalp and palms using chronically topical steroids -triamcinolone -referred to electrical estimator today for further eval Depression 03/15/2023 03/15/2023 Moderate persistent asthma 03/05/2023 0 03/15/2023 Encounters * This document contains information received from the source organization and may not represent a complete record from that organization. Date Type Department Care Team Description 09/08/2025 Travel 08/25/2025 3:00 PM EDT Office Visit [facility] [address] [address] Michelle Gould MD Yeast infection (Primary Dx); Dysuria 08/25/2025 Travel 08/19/[address] [address] Mary Ellen Ortega MD Results 08/18/[address] [address] Mary Ellen Ortega MD Seborrheic dermatitis 08/16/2025 11:20 AM EDT Office Visit [facility] [address] [address] Evy Elizabeth NP Bilateral flank pain (Primary Dx); Vaginal discharge 08/16/2025 Results Follow-Up [facility] [address] [address] Evy Elizabeth NP Bacterial Vaginosis 08/16/2025 Results Follow-Up [facility] [address] [address] Evy Elizabeth NP Urinalysis Complete, Culture, Urine, Routine 08/16/2025 Orders Only [address] [address] Evy Elizabeth NP 08/16/2025 Travel 08/11/2025 Results Follow-Up [address] [address] Mary Ellen Ortega MD CBC auto differential, Hepatic Function Panel, Basic Metabolic Panel, Additional followed-up results: 5 08/10/2025 Orders Only GENERIC EXTERNAL DATA DEPARTMENT Provider, Generic External Data 07/29/2025 Travel 07/26/2025 Refill [facility] [address] [place] [address] Mary Ellen Ortega MD 07/23/2025 Refill [facility] [address] [place] [address] Mary Ellen Ortega MD 07/06/2025 1:45 PM EDT Office Visit [facility] [address] [place] [address] Mary Ellen Ortega MD Sore throat (Primary Dx); Type 2 diabetes mellitus with other circulatory complication, with long-term current use of insulin ([facility]); Nasal congestion; Lung nodule; Hypertension, unspecified type; Health care maintenance; Severe episode of recurrent major depressive disorder, without psychotic features ([facility]); ALBERTINA (obstructive sleep apnea); Upper respiratory tract infection, unspecified type 07/06/2025 Travel from Last 3 Months Immunizations Immunization Administration [...] Sign Reading Time Taken Comments Blood Pressure 130/60 09/08/2025 9:41 AM EDT Pulse 87 09/08/2025 9:41 AM EDT Temperature 37.2 C (98.9 F) 08/25/2025 3:07 PM EDT Respiratory Rate 18 08/25/2025 3:07 PM EDT Oxygen Saturation 97% 08/25/2025 3:07 PM EDT Inhaled Oxygen Concentration - - Weight 77.7 kg (171 lb 6.4 oz) 08/16/2025 11:57 AM EDT Height 172.7 cm (5' 8 ) 08/16/2025 11:57 AM EDT Body Mass Index 26.06 08/16/2025 11:57 AM EDT Plan of Treatment Upcoming Encounters Date Type Department Care Team (Late st Contact Info) Description 09/21/2025 9:00 AM EST Medication Management [facility] [address] [place] [address] Mally Guzman, PharmD [address] [place] [address] Health Maintenance Due Date Last Done Comments CT Colonography 1968 Colonoscopy 1968 Colorectal Cancer Screening 1968 Dental X-Ray: Bitewings 1968 Dental X-Ray: Full Mouth 1968 FIT DNA/Cologuard 1968 FIT 1968 FOBT 1970 Sigmoidoscopy 1968 Diabetes: Foot Exam 10/23/2024 10/23/2023 Mammogram 03/14/2025 09/14/2024, 02/10, 08/21/2023, Additional history exists Lipid Panel 05/04/2025 05/04/2024, 07/12, 03/08/2023 Diabetes: Urine Protein Screening 05/07/2025 05/07/2024, 07/22/2023 Depression Monitoring 11/13/2025 05/13/2025, 025 Dental Oral Exam 11/19/2025 05/18/2025, 05/2025, 04/07/2024 Dental Prophylaxis 11/19/2025 05/18/2025, 0 11/17/2024, 06/16/2024 Diabetes: Hemoglobin A1C 11/25/2025 025, 05/13/2025, 02/11/2025, Additional history exists Alcohol/Substance Use Screening 02/22/2026 02/22/2025 SDOH Screening 02/22/2026 02/22/2025 Disability Screening 05/13/2026 05/13/2025 Tobacco Screening 08/28/2026 08/28/2025 Eye Exam 03/15/2027 03/15/2025, 05/0 03/2025, 03/15/2025, [...] Procedure Name Priority Date/Time Associated Diagnosis Comments POCT URINALYSIS DIPSTICK Routine 08/25/2025 3:33 PM EDT Dysuria POCT GLYCATED HEMOGLOBIN, TOTAL Routine 08/25/2025 2:50 PM EDT Type 2 diabetes mellitus with other circulatory complication, with long-term current use of insulin (HCC) URINALYSIS, COMPLETE Routine 08/16/2025 12:00 AM EDT Bilateral flank pain BACTERIAL VAGINOSIS PANEL Routine 08/16/2025 12:00 AM EDT CULTURE, URINE, ROUTINE Routine 08/16/2025 12:00 AM EDT Bilateral flank pain URINALYSIS, COMPLETE, WITH REFLEX TO CULTURE Routine [...] with long-term current use of insulin (CMS/HCC) PROPHYLAXIS - ADULT Routine 05/18/2025 3 :00 PM EDT PERIODIC ORAL EVALUATION - ESTABLISHED PATIENT Routine 05/18/2025 3:00 PM EDT BI MAMMOGRAM DIAGNOSTIC TOMOSYNTHESIS BILATERAL Routine 09/14/2024 [...] Recently Relevant to Health Maintenance Results * POCT urinalysis dipstick manually resulted (CPT 30605) (08/25/2025 3:33 PM EDT) Color, UA Yellow Clarity, UA Clear Glucose, UA Comment:1000 Bilirubin, UA Negative Ketones, UA Comment:trace Spec Grav, UA 1.015 Blood, UA Negative Negative, None Detected pH, UA 6.0 Protein, UA Negative Urobilinogen, UA 0.2 Leukocytes, UA Negative Negative, Rare, Trace Nitrite, UA Negative Negative, None Detected Appearance, UA clear QC Media Lot # [id number] Lot# Expiration Date 63, Urine (Urine, Random) 08/25/2025 3:33 PM EDT Michelle Gould MD POINT OF CARE TEST ENTER/E DIT ORDERABLES Final Result * (ABNORMAL) POCT A1c (08/25/2025 2:50 PM EDT) Hemoglobin A1C 7.2(A) 4.0 - 5.7 % QC Media Lot # [id number] Lot# Expiration Date , Blood 08/25/2025 2:50 PM EDT Mary Ellen Orellana MD POINT OF CARE ANDRÉS T ENTER/EDIT ORDERABLES Final Result * (ABNORMAL) Bacterial Vaginosis (08/16/2025 12:00 AM EDT) TRICHOMONAS VAGINALIS DETECTION BY PCR NOT DETECTED Not Detect [facility] BACTERIAL VAGINOSIS DETECTION BY PCR NEGATIVE Negative [facility] Comment:The BV organism targ ets [...] GROUP DETECTION BY PCR DETECTED(A) Not Detect [facility] Marichuy glab krusei PCR DETECTED(A) Not Detect [facility] 08/16/2025 08/16/2025 Evy Elizabeth NP LAB MICROBIOLOGY - GENERAL HOMA FLOYD Final Result [facility] [address] [place] [address] [phone] * (ABNORMAL) Urinalysis Complete (08/16/2025 12:00 AM EDT) Color Urine Yellow [facility] Appearance Urine Clear [facility] PH 6.5 5.0 - 9.0 [facility] Glucose Urine UA >=1000(A) Negative mg/dL [facility] Urine Blood Negative Negative [facility] Specific Raymond - Urine >=1.030(H) 1.005 - 1.025 [facility] Urine Protein Negative Neg-Trace mg/dL [facility] Urine Ketones Negative Negative mg/dL [facility] Nitrite Urine Negative Negative [facility] Leukocyte Esterase Urine Negative Negative [facility] RBC Urine 0-2 0 - 2 /HPF [facility] Urine WBC 11-20(A) 0 - 5 /HPF [facility] Urine Squamous Epithelial Cell 6-10 0 - 2 /HPF [facility] Other Crystals Urine Present [facility] Urine Bacteria None Seen None Seen [facility] Hyaline Casts, Urine 0-2 0 - 2 /LPF [facility] Urine (Urine, Random) 08/16/2025 08/16/2025 Evy Elizabeth WILLOW WORKER LAB URINE ORDERABLES Final Resu lt Performing Organization Address [facility] Co de Phone Number [facility] [address] [place] [phone] * Culture, Urine, Routine (08/16/2025 12:00 AM EDT) Only the most recent of2 resultswithin the time period is included. Urine Urine specimen obtained by clean catch procedure / Unknown 08/16/2025 08/16/2025 Comment:UACC Narrative [facility] - 08/18/2025 12:29 PM EDT Urine Culture Report Result Urine Culture > 100,000 cfu/ml Urine Culture Mixed bacterial luca characteristic of Urine Culture urogenital contamination. Specimen Source: Urine clean catch us Evy Elizabeth WILLOW WORKER LAB MICROBIOLOGY - GENERAL ROBBIEPaul MARIEL Final Result Performing Organization Address [facility]/ZIP Co de Phone Number [facility] [address] [place] [address] [phone] * (ABNORMAL) Urinalysis, Complete, with Reflex to Culture (08/10/2025 3:23 PM EDT) Color Urine Dark Yellow [facility] Appearance Urine Clear [facility] PH 5.5 5.0 - 9.0 [facility] Glucose Urine UA >=1000(A) Negative mg/dL [facility] Urine Blood Negative Negative [facility] Specific Raymond - Urine >=1.030(H) 1.005 - 1.025 [facility] Urine Protein Trace Neg-Trace mg/dL [facility] Urine Ketones Trace Negative mg/dL [facility] Nitrite Urine Positive(A) Negative [facility] Leukocyte Esterase Urine Trace(A) Negative [facility] RBC Urine 0-2 0 - 2 /HPF [facility] Urine WBC 21-50(A) 0 - 5 /HPF [facility] Urine Squamous Epithelial Cell 3-5 0 - 2 /HPF [facility] Urine Bacteria 4+ None Seen [facility] Hyaline Casts, Urine 0-2 0 - 2 /LPF [facility] 08/10/2025 3:23 PM EDT 08/10/2025 3:32 PM EDT Narrative [facility] - 08/10/2025 3:42 PM EDT Urine, Clean Catch us Generic External Data Provider LAB URINE ORDERAB LES Final Result Performing Organization Address [facility] Co de Phone Number [facility] [address] [place] [phone] * US Renal Complete (08/10/2025 12:59 PM EDT) Anatomical Region Laterality Modality Kidney Ultrasound 08/10/2025 12:5 9 PM EDT Narrative 08/10/2025 1:45 PM EDT [address] [address] Ultrasound Report Signed Patient: Radha Nguyen#: [id number] : 1970 Acct:[id number] Age/Sex: 54 / F ADM Date: 08/10/25 Loc: HO.ED Attending Dr: Ordering Physician: Ailyn Bowen Date of Service: 08/10/25 Procedure(s): US renal BI Accession Number(s): [id number] cc: Mary Ellen Ortega MD; Ailyn Bowen [...] 08/10/25 1342 DD/ 1259 TD/TT: 08/10/25 1318 Citrus Picker: Procedure Note Donotuseinterpreter, Image - 08/10/2025 [place] [id number] Ultrasound Report Signed Patient: Adeola Nguyen R#: [id number] : 1970Acct:[id number] Age/Sex: 54 / FADM Date: 08/10/25 Loc: HO.ED Attending Dr: Ordering Physician: Ailyn Bowen Date of Service: 08/10/25 Procedure(s): US renal BI Accession Number(s): [id number] cc: Mary Ellen Ortega MD; Ailyn Bowen [...] 08/10/25 1342 DD/ 1259 TD/TT: 08/10/25 1318 Citrus Picker: us [facility] External Provider IMG US PROCEDURES Final Result * CBC auto differential (08/10/2025 10:45 AM EDT) White Blood Count 10.7 4.8 - 10.8 X10*3/uL [facility] Red Blood Count 5.45 4.20 - 5.50 X10*6/uL [facility] Hemoglobin 15.1 12.0 - 16.0 g/dl [facility] Hematocrit 46.6 37.0 - 47.0 % [facility] Mean Corpuscular Volume 85.5 80.0 - 98.0 fL [facility] Mean Corpuscular Hemoglobin 27.7 27.0 - 33.0 pg [facility] Mean Corpuscular HGB Conc 32.4 31.0 - 35.0 g/dl [facility] Red Cell Distribution Width 12.4 11.0 - 16.0 % [facility] Platelet Count 340 160 - 400 X10*3/uL [facility] Mean Platelet Volume 9.5 9.4 - 12.3 fL [facility] Neutrophils Percent Auto 61.4 45 - 73 % [facility] Imm Gran Pct Auto 0.3 0.0 - 0.4 % [facility] Lymphocytes Percent Auto 28.8 20 - 40 % [facility] Monocytes Percent Auto 6.5 2 - 11 % [facility] Eosinophils Percent Auto 2.4 0 - 4 % [facility] Basophils Percent Auto 0.6 0 - 2 % [facility] NRBC Pct Auto 0.0 0.0 - 0.2 /100WBC [facility] Neutrophils Absolute Auto 6.6 2.0 - 8.3 x10*3/uL [facility] Imm Gran Abs Auto 0.03 0.00 - 0.03 X10*3/uL [facility] Lymphocytes Absolute Auto 3.1 1.2 - 4.9 X10*3/uL [facility] Monocytes Absolute Auto 0.7 0.1 - 1.2 X10*3/uL [facility] Eosinophils Absolute Auto 0.3 0.0 - 0.4 X10*3/uL [facility] Basophils Absolute Auto 0.1 0.0 - 0.2 X10*3/uL [facility] NRBC Abs Auto 0.000 0.0 - 0.012 X10*3/uL [facility] 08/10/2025 10:4 5 AM EDT 08/10/2025 10:48 AM EDT us Generic External Data Provider LAB BLOOD ORDERAB LES Final Result Performing Organization Address [facility]/ZIP Co de Phone Number [facility] [address] [place] [phone] * Magnesium (08/10/2025 10:45 AM EDT) Magnesium 1.7 1.6 - 2.6 mg/dL [facility] 08/10/2025 10:4 5 AM EDT 08/10/2025 10:48 AM EDT us Generic External Data Provider LAB BLOOD ORDERAB LES Final Result Performing Organization Address City/[facility] Co de Phone Number [facility] [address] [place] [phone] * Lipase (08/10/2025 10:45 AM EDT) Lipase 21 8 - 78 U/L [facility] 08/10/2025 10:4 5 AM EDT 08/10/2025 10:48 AM EDT us Generic External Data Provider LAB BLOOD ORDERAB LES Final Result [facility] [address] [place] [address] [phone] * Creatine Kinase, Total (08/10/2025 10:45 AM EDT) Creatine Kinase Total 52 26 - 140 U/L [facility] 08/10/2025 10:4 5 AM EDT 08/10/2025 10:48 AM EDT us Generic External Data Provider LAB BLOOD ORDERAB LES Final Result Performing Organization Address [facility] Co de Phone Number [facility] [address] [place] [address] [phone] * (ABNORMAL) Hepatic Function Panel (08/10/2025 10:45 AM EDT) Bilirubin, Total 0.8 0.0 - 1.0 mg/dL [facility] Bilirubin, Direct 0.3 0.0 - 0.5 mg/dL [facility] Aspartate Amino Transferase 29 5 - 31 U/L [facility] Alanine Aminotransferase 33(H) 0 - 31 U/L [facility] Total Protein 7.8 6.5 - 8.0 g/dL [facility] Albumin Level 4.8 3.5 - 5.0 g/dL [facility] Alkaline Phosphatase 141(H) 39 - 117 U/L [facility] 08/10/2025 10:4 5 AM EDT 08/10/2025 10:48 AM EDT us Generic External Data Provider LAB BLOOD ORDERAB LES Final Result Performing Organization Address City/[facility]/ZIP Co de Phone Number [facility] [address] [place] [phone] * (ABNORMAL) Basic Metabolic Panel (08/10/2025 10:45 AM EDT) Sodium 142 135 - 145 mmol/L [facility] Potassium 3.1(L) 3.3 - 5.1 mmol/L [facility] Chloride 105 96 - 108 mmol/L [facility] Carbon Dioxide 25 22 - 29 mmol/L [facility] Anion Gap 15 12 - 20 [facility] Urea Nitrogen (BUN) 9 9 - 16 mg/dL [facility] Creatinine, Serum 0.74 0.5 - 1.4 mg/dL [facility] Creatinine Clr Calc Pharmacy 85.6 [facility] Comment:Provided height and weight: 172.72 cm,71.668 kg.eGFR (calculated from the MDRD study equation) and eCrCl(calculated from the Cockcroft-Gault equation) are based ondifferent parameters and may not yield comparable results.If eCrCl result is absurd, please check patient'sheight/weight. Estimated Glomerular Filt Rate >60 [facility] Comment:Chronic Kidney Disea se: Estimated GFR < 60 mL/min/1.15i5Ydwyjg Kidney Disease: Estimated GFR < 15 mL/min/1.73m2 Glucose 168(H) 60 - 115 mg/dL [facility] Calcium 9.6 8.4 - 10.2 mg/dL [facility] 08/10/2025 10:4 5 AM EDT 08/10/2025 10:48 AM EDT us Generic External Data Provider LAB BLOOD ORDERAB LES Final Result [facility] [address] [place] [phone] * CT Lumbar Spine w/o Contrast (08/03/2025 9:29 AM EDT) Anatomical Region Laterality Modality Spine, L-spine Computed Tomogra phy 08/03/2025 9:29 AM EDT Narrative 08/03/2025 10:04 AM EDT [address] [address] [address] Scan Report Signed Patient: Radha Nguyen#: [id number] : 1970 Acct:[id number] Age/Sex: 54 / F ADM Date: 08/03/25 Loc: YOLAMarcoKSENIA Attending Dr: Mary Ellen Orellana MD Ordering Physician: Nhi Wisdom Date of Service: 08/03/25 Procedure(s): CT lumbar spine wo IV con Accession Number(s): [id number] cc: Nhi Wisdom; Mary Ellen Ortega MD Report Number: [id number]: Total DLP = 690.00 mGy-cm Reason for [...] atherosclerotic calcifications are present. There are 5 iey-qts-dmtexra lumbar segments. T12-L1: There is no disc [...] 08/03/25 1001 DD/ 0929 TD/TT: 08/03/25 0942 Citrus Picker: Procedure Note Donotuseinterpreter, Image - 08/03/[address] [place] [address] [address] Scan Report Signed Patient: Adeola Nguyen R#: [id number] : 1970Acct:[id number] Age/Sex: 54 / FADM Date: 08/03/25 Loc: HO.CARD Attending Dr: Mary Ellen Orellana MD Ordering Physician: Nhi Wisdom Date of Service: 08/03/25 Procedure(s): CT lumbar spine wo IV con Accession Number(s): [id number] cc: Nhi Wisdom; Mary Ellen Ortega MD Report Number: [id number]: Total DLP = 690.00 mGy-cm Reason for [...] atherosclerotic calcifications are present. There are 5 wku-fex-vwqpwsy lumbar segments. T12-L1: There is no disc [...] 08/03/25 1001 DD/ 0929 TD/TT: 08/03/25 0942 Citrus Picker: [facility] External Provider IMG CT PROCEDURES Final Result * POCT Rapid Influenza B BADILLO ID NOW (07/06/2025 2:25 PM EDT) [facility] Influenza B Negative Negative, Indeterminate [facility] Swab 07/06/2025 2:25 PM EDT Mary Ellen Orellana MD POINT OF CARE ANDRÉS T ENTER/EDIT ORDERABLES Final Result Performing Organization Address [facility]/ZIP Co de Phone Number [facility] [address] [place] [phone] * POCT Rapid Influenza A BADILLO ID NOW (07/06/2025 2:25 PM EDT) [facility] Influenza A Negative Negative, Indeterminate [facility] Swab 07/06/2025 2:25 PM EDT Mary Ellen Orellana MD POINT OF CARE ANDRÉS T ENTER/EDIT ORDERABLES Final Result Performing Organization Address [facility] Co de Phone Number [facility] [address] [place] [phone] * POCT Rapid Covid-19 BinaxNOW (07/06/2025 2:25 PM EDT) [facility] Rapid COVID Ag Negative Swab 07/06/2025 2:25 PM EDT Mary Ellen Orellana MD POINT OF CARE ANDRÉS T ENTER/EDIT ORDERABLES Final Result * POCT Glucose (07/06/2025 2:16 PM EDT) Glucose Blood, POC 122 60 - 200 mg/dL Blood Capillary blood specimen / Unknown 07/06/2025 2:16 PM EDT Mary Ellen Orellana MD POINT OF CARE ANDRÉS T ENTER/EDIT ORDERABLES Final Result * BI Mammogram Diagnostic Tomosynthesis Bilateral (09/14/2024 11:00 AM EST) Anatomical Region Laterality Modality Breast Bilateral Mammography 09/14/2024 11:0 0 AM EST Narrative 09/14/2024 12:16 PM EST [facility] [address] [place] [address] Mammography Report Signed Patient: Radha Nguyen#: [id number] : 1970 Acct:[id number] Age/Sex: 54 / F ADM Date: 09/14/24 Loc: HO.MAMMO Attending Dr: Mary Ellen Orellana MD Ordering Physician: Mary Ellen Ortega MD Re sults: 2Benign Findings Date of Service: 09/14/24 Follow Up: 1 Year From [facility] Mammogram Procedure(s): MM tomosynthesis diagnostic BI Accession Number(s): [id number] cc: Mary Ellen Ortega MD EXAMINATION: MM [...] by: Andreas Wall MD 09/14/2024 12:13 PM [facility] Dictated By: Andreas Wall MD Signed By: <Electronically signed by Andreas Wall MD in OV> 09/14/24 1213 DD/ 1100 TD/TT: 09/14/24 1137 Citrus Picker: Procedure Note Donotuseinterpreter, Image - 09/14/2024 [facility] [address] [place] [address] Dr. [place], [place] [address] Mammography Report Signed Patient: Adeola Nguyen R#: [id number] : 1970Acct:[id number] Age/Sex: 54 / FADM Date: 09/14/24 Loc: HO.MAMMO Attending Dr: Mary Ellen Orellana MD Ordering Physician: Mary Ellen Ortega sults: 2Benign Findings Date of Service: 09/14/24Follow Up: 1 Year From [facility] Mammogram Procedure(s): MM tomosynthesis diagnostic BI Accession Number(s): [id number] cc: Mary Ellen Ortega MD EXAMINATION: MM [...] by: Andreas Wall MD 09/14/2024 12:13 PM [facility] Dictated By: Andreas Wall MD Signed By: <Electronically signed by Andreas Wall MD in OV> 09/14/24 1213 DD/ 1100 TD/TT: 09/14/24 1137 Citrus Picker: us Mary Ellen Orellana MD IMG BI PROCEDURES Edited Result - Final * Albumin, Random Urine W/Creatinine (05/07/2024 3:30 PM EDT) Creatinine, Urine 298.37 mg/dL [facility] Microalbumin Urine 41.0 mg/L [facility] Microalbum Creatinine Ratio Ur 13.7 <30 ug/mg cr [facility] Comment:Albumin/Creatinine R atio Reference Ranges: Normal: < 30 ug/mg creatinine Microalbuminuria: 30 - 300 ug/mg creatinineClinical Albuminuria: > 300 ug/mg creatinine 05/07/2024 3:30 PM EDT 05/07/2024 6:15 PM EDT us Mary Ellen Orellana MD LAB URINE ORDERAB LES Final Result Performing Organization Address City/State/[facility] Co de Phone Number [facility] [address] [place] [address] [phone] * (ABNORMAL) Lipid Panel, Standard (05/04/2024 9:51 AM EDT) Triglycerides 230(H) <150 mg/dL [facility] Comment:Desirable Triglyceri de: less than 150 mg/dLBorderline High Triglyceride 150-199 mg/dLHigh Triglyceride: 200-499 mg/dLVery High Triglyceride: greater than or equal to 5OO mg/dL Cholesterol 142 <200 mg/dL [facility] Comment:Desirable Cholestero l: less than 200 mg/dLBorderline High Cholesterol: 200-239 mg/dLHigh Cholesterol: greater than 239 mg/dL LDL Cholesterol Calculated 60 <100 mg/dL [facility] Comment:Desirable LDL: less than 100 mg/dLNear Optimal/Above Optimal LDL: 110- 129 mg/dLBorderline High LDL: 130-159 mg/dLHigh LDL: 160-189 mg/dLVery High LDL: greater than or equal to 190 mg/dL HDL Cholesterol 36(L) >40 mg/dL [facility] Comment:Desirable HDL: great er than 40 mg/dL Note: This HDL assay may give artificially low results in patients with liver disease. Blood Venous blood specimen / Unknown 05/04/2024 9:51 AM EDT 05/04/2024 12:13 PM EDT Mary Ellen Orellana MD LAB BLOOD ORDERAB LES Final Result Performing Organization Address [facility]/ZIP Co de Phone Number [facility] [address] [place] [address] [phone] * HPV mRNA E6/E7 w/Reflex to HPV Genotypes 16, 18/45 (04/07/2024 9:47 AM EDT) HPV nRNA E6/E7 Not Detected Not Detected [facility] Comment:Methodology: Transcr iption-Mediated AmplificationThis assay detects E6/E7 viral messenger RNA (mRNA) from 14high-risk HPV types (16,18,31,33,35,39,45,51,52,56,58,59,66,68).Cervical sources are required for HPV testing.If a vaginal source from a patient who has had atotal hysterectomy with removal of cervix wassubmitted, please contact the testing laboratoryfor alternative testing options.For additional information, please refer tohttp://education.DVTel/faq/WEL080e9(This link if provided for information/educational purposes only.)THIS TEST WAS PERFORMED AT:[employer] [place] [phone] BAE MD HPV mRNA E6/E7 TNP [facility] HPV 16 RNA TNP [facility] HPV 18/45 RNA [facility] 04/07/2024 9:47 AM EDT 04/08/2024 10:30 AM EDT us Mary Ellen Orellana MD LAB CYTOLOGY ORDE RABLES Final Result Performing Organization Address [facility]/ZIP Co de Phone Number [facility] [address] [place] [address] [phone] * Pap Smear (04/07/2024 9:47 AM EDT) Swab Cervix uteri structure / Unknown 04/07/2024 9:47 AM EDT 04/08/2024 10:30 AM EDT [facility] - 04/29/2024 9:28 PM EDT ----- ------- Name: Radha Nguyen Age/Sex: 53/F : 1970 Unit#: [id number] Attend Dr: Mary Ellen Ortega MD Re04/07/24 Status: DEP REF Location: HO.HHCLNP Disch: ----- ------- SPEC : [id number] RECD: 04/08/24-1029 STATUS: [facility] NUM: [id number] ANAID: 04/07/[address] [facility] [address]: CARLTON ALEGRIA CNM ENTERED: 04/08/24-1404 SP TYPE: Pap Dillan [address] DR: ORDERED: Pap Smear THIS IS A [...] 59, 66, 68) HPV testing performed by [facility], [place], [place]. See reference laboratory portion of the EMR for entire report. Note: 04/29 This case is corrected. The results for HPV 16/18/45 are deleted because they were not performed. Final diagnosis remains the same. Clinical Information LMP: Postmenopausal Previous PAP test: Postmenopausal bleeding, Unknown findings Material Received ThinPrep-Cervical ----- ------- Signed (signature on file) Natalia Luke MD 04/29/242127 ----- ------- END OF REPORT us Carlton Alegria [facility] CYTOLOGY ORDERABLES F inal Result [facility] [address] [place] [phone] * Hepatitis C Antibody with Reflex to HCV, RNA, Quantitative, Real-Time PCR (03/08/2023 9:31 AM EDT) Hepatitis C Antibody NON-REACT SVETLANA NON-REACT SVETLANA [employer] [facility] [place] MO[facility] Index 0.07 <1.00 [facility] [place] [facility] Comment: HCV antibody was non-reactive. There is no laboratory evidence of HCV infection. In most cases, no further action is required. However, if recent HCV exposure is suspected, a test for HCV RNA (test code 14043) is suggested. For additional information please refer to http://Campus Connectr.DVTel/faq/PAV85d7 (This link is being provided for informational/ educational purposes only.) Blood Venous blood specimen / Unknown 03/08/2023 9:31 AM EDT 03/08/2023 9:32 AM EDT Narrative [facility] - 03/08/2023 8:49 PM EDT FASTING:YES FASTING: YES us Michelle Gould MD LAB BLOOD ORDERABLES Final Result [facility] [address], [place] [phone] [facility] [place] [facility] [address] [place] [phone] * HIV-1/2 Antigen and Antibodies, Fourth Generation, with Reflexes (03/08/2023 9:31 AM EDT) Pathologist [facility] HIV Antigen/Antibody, 4th Generation NON-REAC TIVE NON-REAC TIVE [facility] [place] [facility] Comment: HIV-1 antigen and HIV-1/HIV-2 antibodies [...] purpose. For additional information please refer to http://Campus Connectr.DVTel/faq/LPB298 (This link is being provided for informational/ educational purposes only.) The performance of this assay has not been clinically validated in patients less than 2 years old. Blood Venous blood specimen / Unknown 03/08/2023 9:31 AM EDT 03/08/2023 9:32 AM EDT Narrative [facility] - 03/08/2023 8:49 PM EDT FASTING:YES FASTING: YES us Michelle Gould MD LAB BLOOD ORDERABLES Final Result [facility] [address] [facility], [place] [address] [facility] [place] [facility] [address] [place] [phone] from Last 3 Months or Most Recently Relevant to Health Maintenance Insurance [facility] C3 DENTAL-[facility] MEDICAID STAND ADULT [address] [place] [address] Care Teams Global Mobility Specialist Relationship Specialty Start Date End Date Mary Ellen Ortega MD [address] [place] [address] PCP - General Internal Medicine 03/15/23 Mally Guzman, ElizabethD [address] [place] [address] Pharmacist Pharmacy 08/27/25
== END 2025-09-17 11:14 | disposition home or self-care (01) ==
LOC: HO.PMC 10:16
PROVIDERS: PCP Student in an Organized Health Care Education/Training Program; Visit Provider Nurse Practitioner Family
DX: M47.816 Spondylosis without myelopathy or radiculopathy, lumbar region (principal); M96.1 Postlaminectomy syndrome, not elsewhere classified; M54.16 Radiculopathy, lumbar region; Z96.89 Presence of other specified functional implants; M53.3 Sacrococcygeal disorders, not elsewhere classified; M51.369 Other intervertebral disc degeneration, lumbar region without mention of lumbar back pain or lower extremity pain
CPT/HCPCS: 99214

== ENCOUNTER → 2025-09-17 10:15 | Outpatient (BNVA) | payer MEDICAID, SELFPAY | PROVIDERS: PCP Student in an Organized Health Care Education/Training Program; Visit Provider Nurse Practitioner Family | DX: M96.1 Postlaminectomy syndrome, not elsewhere classified (principal); M53.3 Sacrococcygeal disorders, not elsewhere classified; M54.16 Radiculopathy, lumbar region; M47.816 Spondylosis without myelopathy or radiculopathy, lumbar region; Z96.89 Presence of other specified functional implants | CPT/HCPCS: 99212 ==

== ENCOUNTER 2025-09-20 09:09 | Outpatient (REF) | payer MEDICAID, SELFPAY ==
--- OUTSIDE RECORDS SUMMARY | 2025-09-20 09:51 | XMS_ITS | Encounter Summary ---
Author Organization [employer] Address [address] [facility] 7t [place] [address] Care Team Providers Care Cutting And Printing Machine Operator Name Role Phone Mary Ellen Ortega MD Primary Care Pro vider Sommer Martinez PharmD Unavailable [phone] Mally Guzman PharmD Unavailable [phone] Reason for Visit * Reason Comments Med Refill Encounter Details Date Type Department Care Team (Late st Contact Info) Description 03/08/2024 Refill [facility] [address] [place], [place] [phone] Patience Garcia ANP [address] [place], [place] [phone] Social History Tobacco Use Types Packs/Day Years [...] with others, in a hotel, in a correction, living outside on the street, on a [...] Description 09/21/2025 9:00 AM EST Medication Management [facility] [address] [place] [phone] Mally Guzman PharmD [address] [place] [address] documented as of this encounter Visit Diagnoses Not on filedocumented in this encounter Additional Health Concerns Assessment Noted Time PHQ-9 Depression Total Score: 17 024 12:38 PM EST documented as of this encounter Care Teams Cutting And Printing Machine Operator Relationship Specialty Start Date End Date Mar yEllen Ortega MD [address] [place] [phone] PCP - General Internal Medicine 03/15/23 Sommer Martinez, ElizabethD [address] [place] [address] Pharmacist Internal Medicine 09/30/24 08/25/25 Mally Guzman, PharmD [address] [place] [phone] Pharmacist Pharmacy 08/27/25 documented as of this encounter
--- OUTSIDE RECORDS SUMMARY | 2025-09-20 09:51 | XMS_ITS | Encounter Summary ---
Author Organization [employer] Address [address] [facility] 7t [place] [address] Care Team Providers Care Grain Oilseed Or Pasture Grower Name Role Phone Mary Ellen Ortega MD Primary Care Pro vider Sommer Martinez PharmD Unavailable [phone] Mally Guzman PharmD Unavailable [phone] Reason for Visit * Reason Comments Med Refill Encounter Details Date Type Department Care Team (Late st Contact Info) Description 02/26/2025 Refill [facility] [address] [place], [place] [phone] Mary Ellen Ortega MD [address] [place], [place] [phone] Social History Tobacco Use Types Packs/Day Years [...] Description 09/21/2025 9:00 AM EST Medication Management [facility] [address] [place] [phone] Mally Guzman PharmD [address] [place] [address] documented as of this encounter Visit Diagnoses Not on filedocumented in this encounter Additional Health Concerns Assessment Noted Time PHQ-9 Depression Total Score: 12 024 2:32 PM EDT documented as of this encounter Care Teams Grain Oilseed Or Pasture Grower Relationship Specialty Start Date End Date Mary Ellen Ortega MD [address] [place] [phone] PCP - General Internal Medicine 03/15/23 Sommer Martinez, ElizabethD [address] [place] [address] Pharmacist Internal Medicine 09/30/24 08/25/25 Mally Guzman, ElizabethD [address] [place] [address] Pharmacist Pharmacy 08/27/25 documented as of this encounter
--- OUTSIDE RECORDS SUMMARY | 2025-09-20 09:52 | XMS_ITS | Encounter Summary ---
Author Organization [employer] Address [address] [place] [address] 7t [place] [address] Care Team Providers Care Impregnating Helper Name Role Phone Mary Ellen Ortega MD Primary Care Pro vider Sommer Martinez PharmD Unavailable [phone] Mally Guzman PharmD Unavailable [phone] Reason for Visit * Reason Onset Date Comments Medication Question 05/07/2023 Encounter Details Date Type Department Care Team (Late st Contact Info) Description 05/07/2023 Telephone [facility] [address] [place], [place] [phone] Mary Ellen Ortega MD [address] [place], [place] [phone] Medication Question Social History Tobacco Use Types [...] Description 09/21/2025 9:00 AM EST Medication Management [facility] [address] [place] [phone] Mally Guzman PharmD [address] [place] [phone] documented as of this encounter Visit Diagnoses Not on filedocumented in this encounter Additional Health Concerns Assessment Noted Time PHQ-9 Depression Total Score: 18 023 1:27 PM EDT documented as of this encounter Care Teams Impregnating Helper Relationship Specialty Start Date End Date Mary Ellen Ortega MD [address] [place] [address] PCP - General Internal Medicine 03/15/23 Sommer Martinez PharmD [address] [place] [address] [phone] Pharmacist Internal Medicine 09/30/24 08/25/25 Mally Guzman PharmD [address] [place] [phone] Pharmacist Pharmacy 08/27/25 documented as of this encounter
--- OUTSIDE RECORDS SUMMARY | 2025-09-20 09:52 | XMS_ITS | Patient Health Record ---
Author Organization [employer] Address [address] [place] [address] [place] [phone] Support Name Relationship Address Phone Radha Lux Guarantor Unknown Reason For Referral No Information Plan Of Treatment No Information Insurance Providers Payer Name Payer Address Payer Phone Subscriber Number Group Number Insured Name Patient Relationship to Insured Coverage Start Date Coverage End Date [facility] [employer] [address] [place] [id number] Radha Lux Self - patient is the insured
--- OUTSIDE RECORDS SUMMARY | 2025-09-20 09:52 | XMS_ITS | Encounter Summary ---
Author Organization [employer] Address [address] [facility] 7t [place] [address] Care Team Providers Care Aerial Hurricane Hunter Name Role Phone Mary Ellen Ortega MD Primary Care Pro vider Sommer Martinez PharmD Unavailable [phone] Mally Guzman PharmD Unavailable [phone] Reason for Visit * Reason Comments Med Refill Encounter Details Date Type Department Care Team (Late st Contact Info) Description 07/26/2025 Refill [facility] [address] [place], [place] [phone] Mary Ellen Ortega MD 230 [place] [address] Social History Tobacco Use Types Packs/Day Years [...] Description 09/21/2025 9:00 AM EST Medication Management [facility] [address] [place] [phone] Mally Guzman PharmD [address] [place] [address] documented as of this encounter Visit Diagnoses Not on filedocumented in this encounter Additional Health Concerns Assessment Noted Time PHQ-9 Depression Total Score: 11 025 10:50 AM EDT documented as of this encounter Care Teams Aerial Hurricane Hunter Relationship Specialty Start Date End Date Mary Ellen Ortega MD [address] [place] [address] PCP - General Internal Medicine 03/15/23 Sommer Martinez, ElizabethD [address] [place] [address] Pharmacist Internal Medicine 09/30/24 08/25/25 Mally Guzman, ElizabethD [address] [place] [address] Pharmacist Pharmacy 08/27/25 documented as of this encounter
--- OUTSIDE RECORDS SUMMARY | 2025-09-20 09:52 | XMS_ITS | Encounter Summary ---
Author Organization [employer] Address [address] [facility] 7t [place] [address] Care Team Providers Care Alum Plant Supervisor Name Role Phone Mary Ellen Ortega MD Primary Care Pro vider Sommer Martinez PharmD Unavailable [phone] Mally Guzman PharmD Unavailable [phone] Encounter Details Date Type Department Care Team (Late st Contact Info) Description 08/19/2024 Orders Only [facility] [address] [place] [address] Georgette Ramsey MD 230 [place], [place] [phone] Social History Tobacco Use Types Packs/Day Years [...] with others, in a hotel, in a [place], living outside on the street, on a [...] Description 09/21/2025 9:00 AM EST Medication Management [facility] [address] [place] [address] Mally Guzman, PharmD 230 [place] [address] documented as of this encounter Procedures Procedure Name Priority Date/Time Associated Diagnosis Comments BI MAMMOGRAM DIAGNOSTIC TOMOSYNTHESIS BILATERAL Routine 09/14/2024 11:00 AM EST documented in this encounter Results * BI Mammogram Diagnostic Tomosynthesis Bilateral (09/14/2024 11:00 AM EST) Anatomical Region Laterality Modality Breast Bilateral Mammography 09/14/2024 11:0 0 AM EST Narrative 09/14/2024 12:16 PM EST [facility] [address] [place] [address] Dr. [place], [place] [address] Mammography Report Signed Patient: Radha Nguyen#: [id number] : 1970 Acct:[id number] Age/Sex: 54 / F ADM Date: 09/14/24 Loc: HO.MAMMO Attending Dr: Mary Ellen Orellana MD Ordering Physician: Mary Ellen Ortega MD Re sults: 2Benign Findings Date of Service: 09/14/24 Follow Up: 1 Year From Orig ina Mammogram Procedure(s): MM tomosynthesis diagnostic BI Accession Number(s): [id number] cc: Mary Ellen Ortega MD EXAMINATION: MM [...] by: Andreas Wall MD 09/14/2024 12:13 PM [facility] Dictated By: Andreas Wall MD Signed By: <Electronically signed by Andreas Wall MD in OV> 09/14/24 1213 DD/ 1100 TD/TT: 09/14/24 1137 Brand Ambassador: Procedure Note Donotuseinterpreter, Image - 09/14/2024 [facility] [address] [place] [address] Mammography Report Signed Patient: Adeola Nguyen R#: [id number] : 1970Acct:[id number] Age/Sex: 54 / FADM Date: 09/14/24 Loc: HO.MAMMO Attending Dr: Mary Ellen Orellana MD Ordering Physician: Mary Ellen Ortega sults: 2Benign Findings Date of Service: 09/14/24Follow Up: 1 Year From Orig inal Mammogram Procedure(s): MM tomosynthesis diagnostic BI Accession Number(s): [id number] cc: Mary Ellen Ortega MD EXAMINATION: MM [...] by: Andreas Wall MD 09/14/2024 12:13 PM [facility] Dictated By: Andreas Wall MD Signed By: <Electronically signed by Andreas Wall MD in OV> 09/14/24 1213 DD/ 1100 TD/TT: 09/14/24 1137 Brand Ambassador: Mary Ellen Orellana MD IMG BI PROCEDURES Edited Result - Final documented in this encounter Visit Diagnoses Not on filedocumented in this encounter Additional Health Concerns Assessment Noted Time PHQ-9 Depression Total Score: 12 024 2:32 PM EDT documented as of this encounter Care Teams Alum Plant Supervisor Relationship Specialty Start Date End Date Mary Ellen Ortega MD 230 [place], [place] [phone] PCP - General Internal Medicine 03/15/23 Sommer Martinez PharmD [address] [place] [address] Pharmacist Internal Medicine 09/30/24 08/25/25 Mally Guzman PharmD 230 [place] [address] Pharmacist Pharmacy 08/27/25 documented as of this encounter
--- OUTSIDE RECORDS SUMMARY | 2025-09-20 09:52 | XMS_ITS | Encounter Summary ---
Author Organization [employer] Address [address] [facility] 7t [place] [address] Care Team Providers Care Toll Relief Operator Name Role Phone Mary Ellen Ortega MD Primary Care Pro vider Sommer Martinez PharmD Unavailable [phone] Mally Guzman PharmD Unavailable [phone] Encounter Details Date Type Department Care Team (Late st Contact Info) Description 08/11/2025 Results Follow-Up [facility] [address] [place] [address] Mary Ellen Ortega MD 230 [place] [address] CBC auto differential, Hepatic Function Panel, Basic [...] Description 09/21/2025 9:00 AM EST Medication Management [facility] [address] [place], [place] [phone] Mally Guzman, PharmD 230 [place], [place] [phone] documented as of this encounter Visit Diagnoses Not on filedocumented in this encounter Additional Health Concerns Assessment Noted Time PHQ-9 Depression Total Score: 11 025 10:50 AM EDT documented as of this encounter Care Teams Toll Relief Operator Relationship Specialty Start Date End Date Mary Ellen Ortega MD [address] [place] [address] PCP - General Internal Medicine 03/15/23 Sommer Martinez, ElizabethD [address] [place] [address] Pharmacist Internal Medicine 09/30/24 08/25/25 Mally Guzman PharmD [address] [place] [address] Pharmacist Pharmacy 08/27/25 documented as of this encounter
--- OUTSIDE RECORDS SUMMARY | 2025-09-20 09:52 | XMS_ITS | Encounter Summary ---
Author Organization [employer] Address 75 [facility] 7t [place] [address] Care Team Providers Care Ticker Installer Name Role Phone Mary Ellen Ortega MD Primary Care Pro vider Sommer Martinez PharmD Unavailable [phone] Mally Guzman PharmD Unavailable [phone] Reason for Visit * Reason Comments Med Refill Encounter Details Date Type Department Care Team (Late st Contact Info) Description 02/11/2025 Refill [facility] [address] [place] [address] Mary Ellen Ortega MD [address] [place], [place] [phone] Tenderness over maxillary sinus Social History Tobacco [...] with others, in a hotel, in a nursing home, living outside on the street, on [...] Description 09/21/2025 9:00 AM EST Medication Management [facility] [address] [place] [address] Mally Guzman, PharmD 230 [place] [address] documented as of this encounter Visit Diagnoses Diagnosis Tenderness over maxillary sinus documented in this encounter Additional Health Concerns Assessment Noted Time PHQ-9 Depression Total Score: 12 024 2:32 PM EDT documented as of this encounter Care Teams Ticker Installer Relationship Specialty Start Date End Date Mary Ellen Ortega MD [address] [place] [address] PCP - General Internal Medicine 03/15/23 Sommer Martinez, PharmD [address] [place] [address] Pharmacist Internal Medicine 09/30/24 08/25/25 Mally Guzman, ElizabethD [address] [place] [address] Pharmacist Pharmacy 08/27/25 documented as of this encounter
--- OUTSIDE RECORDS SUMMARY | 2025-09-20 09:52 | XMS_ITS | Encounter Summary ---
Author Organization [employer] Address [address] [place] [address] 7t [place] [address] Care Team Providers Care Doper Operator Name Role Phone Mary Ellen Ortega MD Primary Care Pro vider Sommer Martinez PharmD Unavailable [phone] Mally Guzman PharmD Unavailable [phone] Reason for Visit * Reason Onset Date Comments Referral 04/01/2023 Encounter Details Date Type Department Care Team (Late st Contact Info) Description 04/01/2023 Telephone [facility] [address] [place], [place] [phone] Mary Ellen Ortega MD 230 [place], [place] [phone] Referral Social History Tobacco Use Types Packs/Day [...] 11:19 AM EDT Pt was seen by [facility] on 03/15/23 and appears to have an upcoming appt with N on 04/05/23. Unsure if ptstill has pending appt. Will send message to [facility] to outreach pt regarding request. * Telephone Encounter - Sawyer Quiñonez - 04/01/2023 10:16 AM EDT Tc from pt requesting status on referral for a psychiatrist. Please contact pt at [phone] documented in this encounter Plan of Treatment Upcoming Encounters Date Type Department Care Team (Late st Contact Info) Description 09/21/2025 9:00 AM EST Medication Management [facility] [address] [place] [address] Mally Guzman PharmD [address] [place] [address] documented as of this encounter Visit Diagnoses Not on filedocumented in this encounter Additional Health Concerns Assessment Noted Time PHQ-9 Depression Total Score: 18 023 1:27 PM EDT documented as of this encounter Care Teams Doper Operator Relationship Specialty Start Date End Date Mary Ellen Ortega MD [address] [place] [address] PCP - General Internal Medicine 03/15/23 Sommer Martinez PharmD [address] [place] [address] Pharmacist Internal Medicine 09/30/24 08/25/25 Mally Guzman, ElizabethD [address] [place] [address] Pharmacist Pharmacy 08/27/25 documented as of this encounter
--- OUTSIDE RECORDS SUMMARY | 2025-09-20 09:52 | XMS_ITS | Patient Health Record ---
Author Organization [facility] [facility] [address] [facility] [address] Care Team Providers Care Canal Lock Tender Chief Operator Name Role Phone Larry Carranza Unavailable Unavailable CelCastillo blakeanda Unavailable Unavailable Reason For Referral No Information Plan Of Treatment No Information Insurance Providers Payer Name Payer Address Payer Phone Subscriber Number Group Number Insured Name Patient Relationship to Insured Coverage Start Date Coverage End Date [employer] Medicaid [address] [place] [phone] [id number] Radha Lux Self - patient is the insured
--- OUTSIDE RECORDS SUMMARY | 2025-09-20 09:52 | XMS_ITS | Encounter Summary ---
Author Organization [employer] Address 75 [facility] 7t [place] [address] Care Team Providers Care Billet Grinder Name Role Phone Mary Ellen Ortega MD Primary Care Pro vider Sommer Martinez PharmD Unavailable [phone] Mally Guzman PharmD Unavailable [phone] Reason for Visit * Reason Comments Med Refill Encounter Details Date Type Department Care Team (Late st Contact Info) Description 05/27/2025 Refill [facility] 230 [place], [place] [phone] Mary Ellen Rosario MD 230 [place], [place] [phone] Social History Tobacco Use Types Packs/Day Years [...] 09/21/2025 9:00 AM EST Medication Management [facility] [address] [place] [address] Mally Guzman PharmD [address] [place] [address] documented as of this encounter Visit Diagnoses Not on filedocumented in this encounter Additional Health Concerns Assessment Noted Time PHQ-9 Depression Total Score: 11 025 10:50 AM EDT documented as of this encounter Care Teams Billet Grinder Relationship Specialty Start Date End Date Mary Ellen Ortega MD 230 [place] [address] PCP - General Internal Medicine 03/15/23 Sommer Martinez, PharmD [address] [place] [address] Pharmacist Internal Medicine 09/30/24 08/25/25 Mally Guzman, ElizabethD [address] [place] [address] Pharmacist Pharmacy 08/27/25 documented as of this encounter
--- OUTSIDE RECORDS SUMMARY | 2025-09-20 09:52 | XMS_ITS | Encounter Summary ---
Author Organization [employer] Address [address] [facility] 7[address] [place] [address] Care Team Providers Care Educational Manager Name Role Phone Mary Ellen Ortega MD Primary Care Pro vider Sommer Martinez PharmD Unavailable [phone] Mally Guzman PharmD Unavailable [phone] Reason for Visit * Reason Onset Date Comments Appointment Request 03/24/2025 Encounter Details Date Type Department Care Team (Late st Contact Info) Description 03/24/2025 Telephone [facility] 230 [place], [place] [phone] Mary Ellen Ortega MD 230 [place] [address] Appointment Request Social History Tobacco Use Types [...] Description 09/21/2025 9:00 AM EST Medication Management [facility] [address] [place] [address] Mally Guzman PharmD [address] [place] [address] documented as of this encounter Visit Diagnoses Not on filedocumented in this encounter Additional Health Concerns Assessment Noted Time PHQ-9 Depression Total Score: 12 024 2:32 PM EDT documented as of this encounter Care Teams Educational Manager Relationship Specialty Start Date End Date Mary Ellen Ortega MD [address] [place] [address] PCP - General Internal Medicine 03/15/23 Sommer Martinez PharmD [address] [place] [address] Pharmacist Internal Medicine 09/30/24 08/25/25 Mally Guzman PharmD [address] [place] [address] Pharmacist Pharmacy 08/27/25 documented as of this encounter
--- OUTSIDE RECORDS SUMMARY | 2025-09-20 09:52 | XMS_ITS | Encounter Summary ---
Author Organization [employer] Address [address] [facility] 7t [place] [address] Care Team Providers Care Windshield Repair Technician Name Role Phone Mary Ellen Ortega MD Primary Care Pro vider Sommer Martinez PharmD Unavailable [phone] Mally Guzman PharmD Unavailable [phone] Encounter Details Date Type Department Care Team (Late st Contact Info) Description 08/16/2025 Results Follow-Up [facility] 230 [place] [address] Evy Elizabeth NP 230 [place] [address] Bacterial Vaginosis Social History Tobacco Use Types [...] Medication Management [facility] [address] [place] [address] Mally Guzman PharmD [address] [place] [address] documented as of this encounter Visit Diagnoses Diagnosis Candidiasis of vagina- Primary Candidiasis of vulva and vagina documented in this encounter Additional Health Concerns Assessment Noted Time PHQ-9 Depression Total Score: 11 025 10:50 AM EDT documented as of this encounter Care Teams Windshield Repair Technician Relationship Specialty Start Date End Date Mary Ellen Ortega MD 230 [place] [address] PCP - General Internal Medicine 03/15/23 Sommer Martinez, PharmD [address] [place] [address] Pharmacist Internal Medicine 09/30/24 08/25/25 Mally Guzman, ElizabethD [address] [place] [address] Pharmacist Pharmacy 08/27/25 documented as of this encounter
--- OUTSIDE RECORDS SUMMARY | 2025-09-20 09:52 | XMS_ITS | Encounter Summary ---
Author Organization [employer] Address [address] [facility] 7t [place] [address] Care Team Providers Care Pcat Instructor Name Role Phone Mary Ellen Ortega MD Primary Care Pro vider Sommer Martinez PharmD Unavailable [phone] Mally Guzman PharmD Unavailable [phone] Encounter Details Date Type Department Care Team (Late st Contact Info) Description 05/27/2025 Refill [facility] [address] [place] [address] Mary Ellen Ortega MD 230 [place] [address] Social History Tobacco Use Types Packs/Day Years [...] Description 09/21/2025 9:00 AM EST Medication Management [facility] 230 [place] [address] Mally Guzman, PharmD 230 [place] [address] documented as of this encounter Visit Diagnoses Not on filedocumented in this encounter Additional Health Concerns Assessment Noted Time PHQ-9 Depression Total Score: 11 025 10:50 AM EDT documented as of this encounter Care Teams Pcat Instructor Relationship Specialty Start Date End Date Mary Ellen Ortega MD [address] [place] [address] PCP - General Internal Medicine 03/15/23 Sommer Martinez, PharmD [address] [place] [address] Pharmacist Internal Medicine 09/30/24 08/25/25 Mally Guzman, PharmD [address] [place] [address] Pharmacist Pharmacy 08/27/25 documented as of this encounter
--- OUTSIDE RECORDS SUMMARY | 2025-09-20 09:53 | XMS_ITS | Clinical Summary ---
Author Organization [employer] Address [address] [place] [address] 7t [place] [address] Care Team Providers Care Hostel Parent Name Role Phone Mary Ellen Ortega MD Primary Care Pro vider Mally Guzman PharmD Unavailable Allergies Active Allergy Reactions Criticality Noted Date [...] by mouth at bedtime. Active Continuous Glucose Fertilizer Supervisor (FreeStyle [employer] [place]) device 1 each Once per day. Use [...] 2 Active insulin pen needle (TechLite Pen [place]) 32G x 4 mm [facility] USE DIRECTED FOUR TIMES DAILY 100 each [...] mg in the evening. Active sodium chloride ([place]) 0.65 % nasal spray Administer 1 spray [...] complication, with long-term current use of insulin ([facility]) 1 Device Once per day. Use as [...] complication, with long-term current use of insulin ([facility]) Inject 2 mL (200 Units) as directed Use as directed. Every 3 days with omnipod system 20 mL 3 025 Active insulin lispro (HumaLOG) 100 UNIT/ML injectionIndicat ions:Type 2 diabetes mellitus with other circulatory complication, with long-term current use of insulin ([facility]) INJECT 10 UNITS SUBCUTANEOUSLY THREE TIMES DAILY BEFORE MEALS 15 mL 3 025 Active insulin glargine (Lantus SoloStar) 100 UNIT/ML penIndications:T ype 2 diabetes mellitus with other circulatory complication, with long-term current use of insulin ([facility]) Inject 27 Units under the skin Once per day 15 mL 3 025 Active Oral Medication Containers misc 023 2024 Discontinued(M ed list cleanup (will not trigger notification to Pharmacy)) pantoprazole (ProtoNix) 40 MG EC tablet Take 40 mg by mouth in the morning. 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 Radha is engaged with psychiatry services with [facility]; reports medication is working and helping to decrease sxs. Still waiting for OP individual therapy (currently on wait list). During today's consult, clinician engaged patient with active, reflective listening. Reviewed and assessed for risk, current stressors and protective factors. Pt agreed to follow-up with [facility] regarding referral placed. clinician will be [...] and housing. [place] . 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 Radha is engaged with psychiatry services with [facility]; reports medication is working and helping to decrease sxs. Still waiting for OP individual therapy (currently on wait list). During today's consult, clinician engaged patient with active, reflective listening. Reviewed and assessed for risk, current stressors and protective factors. Pt agreed to follow-up with [facility] regarding referral placed. clinician will be [...] and housing. [place] . She's currently taking care [...] and no indication for fibrates -referred to ranch helper and associate director of biostatistics at previous visit -[place] -L.A will check [...] needed if LDL > 70 -referred to ranch helper and associate director of biostatistics at previous visit -[place] Alba.A will check [...] needed if LDL > 70 -referred to ranch helper and associate director of biostatistics at previous visit -[place] El will check [...] statins -low dose lipitor -referred today to ranch helper and associate director of biostatistics -will repeat DM labs and fasting lipids [...] Hx of AKA (above knee amputation), left ([facility] ) 03/05/2023 Assessment & Plan (07/25/2023 7:11 [...] wheelchair -continue ASA,plavix -routed this note to [facility] x wheelchair request and already started [...] and housing. [place] . She's currently taking care [...] protective factors. Pt agreed to follow-up with [facility] regarding referral placed (I printed out [...] and housing. [place] . She's currently taking care [...] and exercise,discussed healthy life style -referred x electrical accessories assembler Assessment & Plan (05/31/2023 10:05 PM EDT): Advised pt to improve diet and exercise,discussed healthy life style -referred today x electrical accessories assembler Assessment & Plan (05/01/2023 7:17 PM EDT): Advised pt to improve diet and exercise,discussed healthy life style -will discuss about electrical accessories assembler referral at next visit Skin lesion 05/01/2023 07/25/2023 Assessment & Plan (05/31/2023 10:09 PM EDT): Reports chronic skin lesions in scalp and palms using chronically topical steroids saw automobile repossessor s/p resection of skin tags but has mils surrounding erythema -mupirocin TID x 7 days Assessment & Plan (05/01/2023 7:19 PM EDT): Reports chronic skin lesions in scalp and palms using chronically topical steroids -triamcinolone -referred to automobile repossessor today for further eval Depression 03/15/2023 03/15/2023 Moderate persistent asthma 03/05/2023 0 03/15/2023 Encounters * This document contains information received from the source organization and may not represent a complete record from that organization. Date Type Department Care Team Description 09/08/2025 Travel 08/25/2025 3:00 PM EDT Office Visit [facility] [address] [address] Michelle Gould MD Yeast infection (Primary Dx); Dysuria 08/25/2025 Travel 08/19/[address] [address] Mary Ellen Ortega MD Results 08/18/[address] [address] Mary Ellen Ortega MD Seborrheic dermatitis 08/16/2025 11:20 AM EDT Office Visit [facility] [address] [address] Evy Elizabeth NP Bilateral flank pain (Primary Dx); Vaginal discharge 08/16/2025 Results Follow-Up [facility] [address] [address] Evy Elizabeth NP Bacterial Vaginosis 08/16/2025 Results Follow-Up [facility] [address] [address] Evy Elizabeth NP Urinalysis Complete, Culture, Urine, Routine 08/16/2025 Orders Only [address] [address] Evy Elizabeth NP 08/16/2025 Travel 08/11/2025 Results Follow-Up [address] [address] Mary Ellen Ortega MD CBC auto differential, Hepatic Function Panel, Basic Metabolic Panel, Additional followed-up results: 5 08/10/2025 Orders Only GENERIC EXTERNAL DATA DEPARTMENT Provider, Generic External Data 07/29/2025 Travel 07/26/2025 Refill [facility] [address] [place] [address] Mary Ellen Ortega MD 07/23/2025 Refill [facility] [address] [place] [address] Mary Ellen Ortega MD 07/06/2025 1:45 PM EDT Office Visit [facility] [address] [place] [address] Mary Ellen Ortega MD Sore throat (Primary Dx); Type 2 diabetes mellitus with other circulatory complication, with long-term current use of insulin ([facility]); Nasal congestion; Lung nodule; Hypertension, unspecified type; Health care maintenance; Severe episode of recurrent major depressive disorder, without psychotic features ([facility]); ALBERTINA (obstructive sleep apnea); Upper respiratory tract [...] Description 09/21/2025 9:00 AM EST Medication Management [facility] [address] [place] [address] Mally Guzman, PharmD [address] [place] [address] Health Maintenance Due Date Last Done Comments [...] topic Meningococcal Vaccine Aged Out No hector apz eligible based on patient's age to complete [...] * POCT urinalysis dipstick manually resulted (CPT 80120) (08/25/2025 3:33 PM EDT) Color, UA Yellow [...] DETECTION BY PCR NOT DETECTED Not Detect [facility] BACTERIAL VAGINOSIS DETECTION BY PCR NEGATIVE Negative [facility] Comment:The BV organism targ ets [...] GROUP DETECTION BY PCR DETECTED(A) Not Detect [facility] Marichuy glab krusei PCR DETECTED(A) Not Detect [facility] 08/16/2025 08/16/2025 Evy Elizabeth NP LAB MICROBIOLOGY - GENERAL HOMA FLOYD Final Result [facility] [address] [place] [phone] * (ABNORMAL) Urinalysis Complete (08/16/2025 12:00 AM EDT) Color Urine Yellow [facility] Appearance Urine Clear [facility] PH 6.5 5.0 - 9.0 [facility] Glucose Urine UA >=1000(A) Negative mg/dL [facility] Urine Blood Negative Negative [facility] Specific [place] - Urine >=1.030(H) 1.005 - 1.025 [facility] Urine Protein Negative Neg-Trace mg/dL [facility] Urine Ketones Negative Negative mg/dL [facility] Nitrite Urine Negative Negative [facility] Leukocyte Esterase Urine Negative Negative [facility] RBC Urine 0-2 0 - 2 /HPF [facility] Urine WBC 11-20(A) 0 - 5 /HPF [facility] Urine Squamous Epithelial Cell 6-10 0 - 2 /HPF [facility] Other Crystals Urine Present [facility] Urine Bacteria None Seen None Seen [facility] Hyaline Casts, Urine 0-2 0 - 2 /LPF [facility] Urine (Urine, Random) 08/16/2025 08/16/2025 Evy Elizabeth GANG MINER LAB URINE ORDERABLES Final Resu lt Performing Organization Address [facility] Co de Phone Number [facility] [address] [place] [phone] * Culture, Urine, Routine (08/16/2025 12:00 AM EDT) Only the most recent of2 resultswithin the time period is included. Urine Urine specimen obtained by clean catch procedure / Unknown 08/16/2025 08/16/2025 Comment:UACC Narrative [facility] - 08/18/2025 12:29 PM EDT Urine Culture Report Result Urine Culture > 100,000 cfu/ml Urine Culture Mixed bacterial luca characteristic of Urine Culture urogenital contamination. Specimen Source: Urine clean catch us Evy Elizabeth GANG MINER LAB MICROBIOLOGY - GENERAL ROBBIEPaul MARIEL Final Result Performing Organization Address [facility]/ZIP Co de Phone Number [facility] [address] [place] [phone] [phone] * (ABNORMAL) Urinalysis, Complete, with Reflex to Culture (08/10/2025 3:23 PM EDT) Color Urine Dark Yellow [facility] Appearance Urine Clear [facility] PH 5.5 5.0 - 9.0 [facility] Glucose Urine UA >=1000(A) Negative mg/dL [facility] Urine Blood Negative Negative [facility] Specific [place] - Urine >=1.030(H) 1.005 - 1.025 [facility] Urine Protein Trace Neg-Trace mg/dL [facility] Urine Ketones Trace Negative mg/dL [facility] Nitrite Urine Positive(A) Negative [facility] Leukocyte Esterase Urine Trace(A) Negative [facility] RBC Urine 0-2 0 - 2 /HPF [facility] Urine WBC 21-50(A) 0 - 5 /HPF [facility] Urine Squamous Epithelial Cell 3-5 0 - 2 /HPF [facility] Urine Bacteria 4+ None Seen [facility] Hyaline Casts, Urine 0-2 0 - 2 /LPF [facility] 08/10/2025 3:23 PM EDT 08/10/2025 3:32 PM EDT Narrative [facility] - 08/10/2025 3:42 PM EDT Urine, Clean Catch us Generic External Data Provider LAB URINE ORDERAB LES Final Result Performing Organization Address [facility] Co de Phone Number [facility] [address] [place] [phone] * US Renal Complete (08/10/2025 12:59 PM EDT) Anatomical Region Laterality Modality Kidney Ultrasound 08/10/2025 12:5 9 PM EDT Narrative 08/10/2025 1:45 PM EDT [address] [address] Ultrasound Report Signed Patient: Radha Nguyen#: [id number] : 1970 Acct:[id number] Age/Sex: 54 / F ADM Date: 08/10/25 Loc: HO.ED Attending Dr: Ordering Physician: Ailyn Bowen Date of Service: 08/10/25 Procedure(s): US renal BI Accession Number(s): [id number] cc: Mary Ellen Ortega MD; Ailyn Bowen [...] 08/10/25 1342 DD/ 1259 TD/TT: 08/10/25 1318 Wheel Inspector: Procedure Note Donotuseinterpreter, Image - 08/10/2025 [place] [address] Ultrasound Report Signed Patient: Adeola Nguyen R#: [id number] : 1970Acct:[id number] Age/Sex: 54 / FADM Date: 08/10/25 Loc: HO.ED Attending Dr: Ordering Physician: Ailyn Bowen Date of Service: 08/10/25 Procedure(s): US renal BI Accession Number(s): [id number] cc: Mary Ellen Ortega MD; Ailyn Bowen [...] 08/10/25 1342 DD/ 1259 TD/TT: 08/10/25 1318 Wheel Inspector: us [facility] External Provider IMG US PROCEDURES Final Result * CBC auto differential (08/10/2025 10:45 AM EDT) White Blood Count 10.7 4.8 - 10.8 X10*3/uL [facility] Red Blood Count 5.45 4.20 - 5.50 X10*6/uL [facility] Hemoglobin 15.1 12.0 - 16.0 g/dl [facility] Hematocrit 46.6 37.0 - 47.0 % [facility] Mean Corpuscular Volume 85.5 80.0 - 98.0 fL [facility] Mean Corpuscular Hemoglobin 27.7 27.0 - 33.0 pg [facility] Mean Corpuscular HGB Conc 32.4 31.0 - 35.0 g/dl [facility] Red Cell Distribution Width 12.4 11.0 - 16.0 % [facility] Platelet Count 340 160 - 400 X10*3/uL [facility] Mean Platelet Volume 9.5 9.4 - 12.3 fL [facility] Neutrophils Percent Auto 61.4 45 - 73 % [facility] Imm Gran Pct Auto 0.3 0.0 - 0.4 % [facility] Lymphocytes Percent Auto 28.8 20 - 40 % [facility] Monocytes Percent Auto 6.5 2 - 11 % [facility] Eosinophils Percent Auto 2.4 0 - 4 % [facility] Basophils Percent Auto 0.6 0 - 2 % [facility] NRBC Pct Auto 0.0 0.0 - 0.2 /100WBC [facility] Neutrophils Absolute Auto 6.6 2.0 - 8.3 x10*3/uL [facility] Imm Gran Abs Auto 0.03 0.00 - 0.03 X10*3/uL [facility] Lymphocytes Absolute Auto 3.1 1.2 - 4.9 X10*3/uL [facility] Monocytes Absolute Auto 0.7 0.1 - 1.2 X10*3/uL [facility] Eosinophils Absolute Auto 0.3 0.0 - 0.4 X10*3/uL [facility] Basophils Absolute Auto 0.1 0.0 - 0.2 X10*3/uL [facility] NRBC Abs Auto 0.000 0.0 - 0.012 X10*3/uL [facility] 08/10/2025 10:4 5 AM EDT 08/10/2025 10:48 AM EDT us Generic External Data Provider LAB BLOOD ORDERAB LES Final Result Performing Organization Address [facility]/ZIP Co de Phone Number [facility] [address] [place] [phone] * Magnesium (08/10/2025 10:45 AM EDT) Magnesium 1.7 1.6 - 2.6 mg/dL [facility] 08/10/2025 10:4 5 AM EDT 08/10/2025 10:48 AM EDT us Generic External Data Provider LAB BLOOD ORDERAB LES Final Result Performing Organization Address City/[facility] Co de Phone Number [facility] [address] [place] [phone] * Lipase (08/10/2025 10:45 AM EDT) Lipase 21 8 - 78 U/L [facility] 08/10/2025 10:4 5 AM EDT 08/10/2025 10:48 AM EDT us Generic External Data Provider LAB BLOOD ORDERAB LES Final Result [facility] [address] [place] [phone] * Creatine Kinase, Total (08/10/2025 10:45 AM EDT) Creatine Kinase Total 52 26 - 140 U/L [facility] 08/10/2025 10:4 5 AM EDT 08/10/2025 10:48 AM EDT us Generic External Data Provider LAB BLOOD ORDERAB LES Final Result Performing Organization Address [facility] Co de Phone Number [facility] [address] [place] [phone] * (ABNORMAL) Hepatic Function Panel (08/10/2025 10:45 AM EDT) Bilirubin, Total 0.8 0.0 - 1.0 mg/dL [facility] Bilirubin, Direct 0.3 0.0 - 0.5 mg/dL [facility] Aspartate Amino Transferase 29 5 - 31 U/L [facility] Alanine Aminotransferase 33(H) 0 - 31 U/L [facility] Total Protein 7.8 6.5 - 8.0 g/dL [facility] Albumin Level 4.8 3.5 - 5.0 g/dL [facility] Alkaline Phosphatase 141(H) 39 - 117 U/L [facility] 08/10/2025 10:4 5 AM EDT 08/10/2025 10:48 AM EDT us Generic External Data Provider LAB BLOOD ORDERAB LES Final Result Performing Organization Address City/[facility]/ZIP Co de Phone Number [facility] [address] [place] [phone] * (ABNORMAL) Basic Metabolic Panel (08/10/2025 10:45 AM EDT) Sodium 142 135 - 145 mmol/L [facility] Potassium 3.1(L) 3.3 - 5.1 mmol/L [facility] Chloride 105 96 - 108 mmol/L [facility] Carbon Dioxide 25 22 - 29 mmol/L [facility] Anion Gap 15 12 - 20 [facility] Urea Nitrogen (BUN) 9 9 - 16 mg/dL [facility] Creatinine, Serum 0.74 0.5 - 1.4 mg/dL [facility] Creatinine Clr Calc Pharmacy 85.6 [facility] Comment:Provided height and weight: 172.72 cm,71.668 kg.eGFR (calculated from the MDRD study equation) and eCrCl(calculated from the Cockcroft-Gault equation) are based ondifferent parameters and may not yield comparable results.If eCrCl result is absurd, please check patient'sheight/weight. Estimated Glomerular Filt Rate >60 [facility] Comment:Chronic Kidney Disea se: Estimated GFR < 60 mL/min/1.65t4Nyltmv Kidney Disease: Estimated GFR < 15 mL/min/1.73m2 Glucose 168(H) 60 - 115 mg/dL [facility] Calcium 9.6 8.4 - 10.2 mg/dL [facility] 08/10/2025 10:4 5 AM EDT 08/10/2025 10:48 AM EDT us Generic External Data Provider LAB BLOOD ORDERAB LES Final Result [facility] [address] [place] [phone] * CT Lumbar Spine w/o Contrast (08/03/2025 9:29 AM EDT) Anatomical Region Laterality Modality Spine, L-spine Computed Tomogra phy 08/03/2025 9:29 AM EDT Narrative 08/03/2025 10:04 AM EDT [address] [address] [address] Scan Report Signed Patient: Radha Nguyen#: [id number] : 1970 Acct:[id number] Age/Sex: 54 / F ADM Date: 08/03/25 Loc: YOLAMarcoKSENIA Attending Dr: Mary Ellen Orellana MD Ordering Physician: Nhi Wisdom Date of Service: 08/03/25 Procedure(s): CT lumbar spine wo IV con Accession Number(s): [id number] cc: Nhi Wisdom; Mary Ellen Ortega MD Report Number: [id number]: Total DLP = 690.00 mGy-cm Reason for [...] atherosclerotic calcifications are present. There are 5 byh-yrt-sgunrvc lumbar segments. T12-L1: There is no disc [...] 08/03/25 1001 DD/ 0929 TD/TT: 08/03/25 0942 Wheel Inspector: Procedure Note Donotuseinterpreter, Image - 08/03/[address] [place] [address] [address] Scan Report Signed Patient: Adeola Nguyen R#: [id number] : 1970Acct:[id number] Age/Sex: 54 / FADM Date: 08/03/25 Loc: HO.CARD Attending Dr: Mary Ellen Orellana MD Ordering Physician: Nhi Wisdom Date of Service: 08/03/25 Procedure(s): CT lumbar spine wo IV con Accession Number(s): [id number] cc: Nhi Wisdom; Mary Ellen Ortega MD Report Number: [id number]: Total DLP = 690.00 mGy-cm Reason for [...] atherosclerotic calcifications are present. There are 5 ltg-wse-qybokol lumbar segments. T12-L1: There is no disc [...] 08/03/25 1001 DD/ 0929 TD/TT: 08/03/25 0942 Wheel Inspector: [facility] External Provider IMG CT PROCEDURES Final Result * POCT Rapid Influenza B BADILLO ID NOW (07/06/2025 2:25 PM EDT) [facility] Influenza B Negative Negative, Indeterminate [facility] Swab 07/06/2025 2:25 PM EDT Mary Ellen Orellana MD POINT OF CARE ANDRÉS T ENTER/EDIT ORDERABLES Final Result Performing Organization Address [facility]/ZIP Co de Phone Number [facility] [address] [place] [phone] * POCT Rapid Influenza A BADILLO ID NOW (07/06/2025 2:25 PM EDT) [facility] Influenza A Negative Negative, Indeterminate [facility] Swab 07/06/2025 2:25 PM EDT Mary Ellen Orellana MD POINT OF CARE ANDRÉS T ENTER/EDIT ORDERABLES Final Result Performing Organization Address [facility] Co de Phone Number [facility] [address] [place] [phone] * POCT Rapid Covid-19 BinaxNOW (07/06/2025 2:25 PM EDT) [facility] Rapid COVID Ag Negative Swab 07/06/2025 2:25 [...] AM EST Narrative 09/14/2024 12:16 PM EST [facility] [address] [place] [address] Mammography Report Signed Patient: Radha Nguyen#: [id number] : 1970 Acct:[id number] Age/Sex: 54 / F ADM Date: 09/14/24 Loc: HO.MAMMO Attending Dr: Mary Ellen Orellana MD Ordering Physician: Mary Ellen Ortega MD Re sults: 2Benign Findings Date of Service: 09/14/24 Follow Up: 1 Year From [facility] Mammogram Procedure(s): MM tomosynthesis diagnostic BI Accession Number(s): [id number] cc: Mary Ellen Ortega MD EXAMINATION: MM [...] 09/14/24 1213 DD/ 1100 TD/TT: 09/14/24 1137 Wheel Inspector: Procedure Note Donotuseinterpreter, Image - 09/14/2024 [facility] [address] [place] [address] Dr[place], [place] [address] Mammography Report Signed Patient: Adeola Nguyen R#: [id number] : 1970Acct:[id number] Age/Sex: 54 / FADM Date: 09/14/24 Loc: HO.MAMMO Attending Dr: Mary Ellen Orellana MD Ordering Physician: Mary Ellen Ortega sults: 2Benign Findings Date of Service: 09/14/24Follow Up: 1 Year From [facility] Mammogram Procedure(s): MM tomosynthesis diagnostic BI Accession Number(s): [id number] cc: Mary Ellen Ortega MD EXAMINATION: MM [...] 09/14/24 1213 DD/ 1100 TD/TT: 09/14/24 1137 Wheel Inspector: us Mary Ellen Orellana MD IMG BI PROCEDURES Edited Result - Final * Albumin, Random Urine W/Creatinine (05/07/2024 3:30 PM EDT) Creatinine, Urine 298.37 mg/dL [facility] Microalbumin Urine 41.0 mg/L [facility] Microalbum Creatinine Ratio Ur 13.7 <30 ug/mg cr [facility] Comment:Albumin/Creatinine R atio Reference Ranges: Normal: < 30 ug/mg creatinine Microalbuminuria: 30 - 300 ug/mg creatinineClinical Albuminuria: > 300 ug/mg creatinine 05/07/2024 3:30 PM EDT 05/07/2024 6:15 PM EDT us Mary Ellen Orellana MD LAB URINE ORDERAB LES Final Result Performing Organization Address City/State/[facility] Co de Phone Number [facility] [address] [place] [phone] * (ABNORMAL) Lipid Panel, Standard (05/04/2024 9:51 AM EDT) Triglycerides 230(H) <150 mg/dL [facility] Comment:Desirable Triglyceri de: less than 150 mg/dLBorderline High Triglyceride 150-199 mg/dLHigh Triglyceride: 200-499 mg/dLVery High Triglyceride: greater than or equal to 5OO mg/dL Cholesterol 142 <200 mg/dL [facility] Comment:Desirable Cholestero l: less than 200 mg/dLBorderline High Cholesterol: 200-239 mg/dLHigh Cholesterol: greater than 239 mg/dL LDL Cholesterol Calculated 60 <100 mg/dL [facility] Comment:Desirable LDL: less than 100 mg/dLNear Optimal/Above Optimal LDL: 110- 129 mg/dLBorderline High LDL: 130-159 mg/dLHigh LDL: 160-189 mg/dLVery High LDL: greater than or equal to 190 mg/dL HDL Cholesterol 36(L) >40 mg/dL [facility] Comment:Desirable HDL: great er than 40 mg/dL Note: This HDL assay may give artificially low results in patients with liver disease. Blood Venous blood specimen / Unknown 05/04/2024 9:51 AM EDT 05/04/2024 12:13 PM EDT Mary Ellen Orellana MD LAB BLOOD ORDERAB LES Final Result Performing Organization Address [facility]/ZIP Co de Phone Number [facility] [address] [place] [phone] * HPV mRNA E6/E7 w/Reflex to HPV Genotypes 16, 18/45 (04/07/2024 9:47 AM EDT) HPV nRNA E6/E7 Not Detected Not Detected [facility] Comment:Methodology: Transcr iption-Mediated AmplificationThis assay detects E6/E7 viral messenger RNA (mRNA) from 14high-risk HPV types (16,18,31,33,35,39,45,51,52,56,58,59,66,68).Cervical sources are required for HPV testing.If a vaginal source from a patient who has had atotal hysterectomy with removal of cervix wassubmitted, please contact the testing laboratoryfor alternative testing options.For additional information, please refer tohttp://education.SproutBox/faq/ZFX832f5(This link if provided for information/educational purposes only.)THIS TEST WAS PERFORMED AT:[address] [place] [phone] BAE MD HPV mRNA E6/E7 TNP [facility] HPV 16 RNA TNP [facility] HPV 18/45 RNA [facility] 04/07/2024 9:47 AM EDT 04/08/2024 10:30 AM EDT us Mary Ellen Orellana MD LAB CYTOLOGY ORDE RABLES Final Result Performing Organization Address [facility]/ZIP Co de Phone Number [facility] [address] [place] [phone] * Pap Smear (04/07/2024 9:47 AM EDT) Swab Cervix uteri structure / Unknown 04/07/2024 9:47 AM EDT 04/08/2024 10:30 AM EDT [facility] - 04/29/2024 9:28 PM EDT ----- ------- Name: Radha Nguyen Age/Sex: 53/F : 1970 Unit#: [id number] Attend Dr: Mary Ellen Ortega MD Re04/07/24 Status: DEP REF Location: HO.HHCLNP Disch: ----- ------- SPEC : [id number] RECD: 04/08/24-1029 STATUS: ROBLES PENN NUM: [id number] ANAID: 04/07/[address] [facility] DR: CARLTON ALEGRIA CNM ENTERED: 04/08/24-1401 SP TYPE: Pap Dillan VALLECILLO DR: ORDERED: [...] 59, 66, 68) HPV testing performed by [facility], [place], [place]. See reference laboratory portion of the EMR [...] ------- END OF REPORT us Carlton Alegria [facility] CYTOLOGY ORDERABLES F inal Result [facility] [address] [place] [phone] * Hepatitis C Antibody with Reflex to HCV, RNA, Quantitative, Real-Time PCR (03/08/2023 9:31 AM EDT) Hepatitis C Antibody NON-REACT SVETLANA NON-REACT SVETLANA [facility] [place] [facility] Index 0.07 <1.00 [facility] Comment: HCV antibody was non-reactive. There is no laboratory evidence of HCV infection. In most cases, no further action is required. However, if recent HCV exposure is suspected, a test for HCV RNA (test code 45335) is suggested. For additional information please refer to http://Amplify.LA.SproutBox/faq/QGH53f3 (This link is being provided for informational/ educational purposes only.) Blood Venous blood specimen / Unknown 03/08/2023 9:31 AM EDT 03/08/2023 9:32 AM EDT Narrative [facility] - 03/08/2023 8:49 PM EDT FASTING:YES FASTING: YES us Michelle Gould MD LAB BLOOD ORDERABLES Final Result [facility] [address], [place] [address] [facility] [place] [email or web address] [address] [place] [address] * HIV-1/2 Antigen and Antibodies, Fourth Generation, with Reflexes (03/08/2023 9:31 AM EDT) Pathologist [facility] HIV Antigen/Antibody, 4th Generation NON-REAC TIVE NON-REAC TIVE [facility] [place] [facility] Comment: HIV-1 antigen and HIV-1/HIV-2 antibodies [...] purpose. For additional information please refer to http://Amplify.LA.SproutBox/faq/MXC535 (This link is being provided for informational/ educational purposes only.) The performance of this assay has not been clinically validated in patients less than 2 years old. Blood Venous blood specimen / Unknown 03/08/2023 9:31 AM EDT 03/08/2023 9:32 AM EDT Narrative [facility] - 03/08/2023 8:49 PM EDT FASTING:YES FASTING: YES us Michelle Gould MD LAB BLOOD ORDERABLES Final Result [facility] [address] [facility], [facility], [place] [address] [facility] [address] [place] [address] from Last 3 Months or Most Recently Relevant to Health Maintenance Insurance [facility] C3 DENTAL-[facility] MEDICAID STAND ADULT [address] [place] [address] Care Teams Hostel Parent Relationship Specialty Start Date End Date Mary Ellen Ortega MD 230 [place] [address] PCP - General Internal Medicine 03/15/23 Mally Guzman, ElizabethD 230 [place] [address] Pharmacist Pharmacy 08/27/25
--- OUTSIDE RECORDS SUMMARY | 2025-09-20 09:53 | XMS_ITS | Encounter Summary ---
Author Organization [employer] Address [address] [facility] 7t [place] [address] Care Team Providers Care Test Facility Engineer Name Role Phone Mary Ellen Ortega MD Primary Care Pro vider Sommer Martinez PharmD Unavailable [phone] Mally Guzman PharmD Unavailable [phone] Reason for Visit * Reason Comments Med Refill Encounter Details Date Type Department Care Team (Late st Contact Info) Description 10/01/2024 Refill [facility] 230 [place], [place] [phone] Mary Ellen Ortega MD 230 [place] [address] Social History Tobacco Use Types Packs/Day Years [...] with others, in a hotel, in a fci, living outside on the street, on a [...] 09/21/2025 9:00 AM EST Medication Management [facility] [address] [place] [address] Mally Guzman, PharmD 230 [place] [address] documented as of this encounter Visit Diagnoses Not on filedocumented in this encounter Additional Health Concerns Assessment Noted Time PHQ-9 Depression Total Score: 12 024 2:32 PM EDT documented as of this encounter Care Teams Test Facility Engineer Relationship Specialty Start Date End Date Mary Ellen Ortega MD 230 [place] [address] PCP - General Internal Medicine 03/15/23 Sommer Martinez, ElizabethD [address] [place] [address] Pharmacist Internal Medicine 09/30/24 08/25/25 Mally Guzman, Vicki [address] [place] [address] Pharmacist Pharmacy 08/27/25 documented as of this encounter
== END 2025-09-20 09:10 | disposition home or self-care (01) ==
LOC: HO.MAMMO 09:09
PROVIDERS: PCP Student in an Organized Health Care Education/Training Program; Visit Provider Student in an Organized Health Care Education/Training Program
DX: Z12.31 Encounter for screening mammogram for malignant neoplasm of breast (principal)
CPT/HCPCS: 77063; 77067

== ENCOUNTER → 2025-09-20 09:45 | Outpatient (BNV) | payer MEDICAID, SELFPAY | PROVIDERS: PCP Student in an Organized Health Care Education/Training Program; Visit Provider Internal Medicine | DX: Z12.31 Encounter for screening mammogram for malignant neoplasm of breast (principal) | CPT/HCPCS: 77063; 77067 ==

== ENCOUNTER 2025-10-30 07:53 | Outpatient (REF) | payer MEDICAID, SELFPAY ==
--- NOTE | ~2025-10-30 | CT_ITS ---
CLINICAL HISTORY: 4 mm nodule Exam: CT chest without IV contrast Comparison: CT/MI/SR - CT CHEST WO IV CON - 10/19/22 21:52 EST Findings: No acute infiltrates, pleural effusion or pneumothorax. Lingula and left lower lobe parenchymal scar unchanged. Stable 4 mm subpleural nodules posterior right lung apex on series 5, image 26 and image 29, anterior right middle lobe on image 85. Left lower lobe benign calcified granuloma. No new pulmonary nodule. Heart size is normal, nonaneurysmal aorta. Mild atherosclerotic calcification of the aorta. No pericardial effusion. No lymphadenopathy. Aberrant right subclavian artery. Imaged lower neck and chest wall are unremarkable. Status post cholecystectomy. Bilateral renal cysts. No acute osseous abnormality. Thoracic spinal cord stimulator noted. Impression: 1. Stable 4 mm pulmonary nodules, considered benign. 2. Additional incidental/chronic findings as described above. This document has been electronically signed by: Melissa Vargas MD on 11/02/2025 15:11:19
--- OUTSIDE RECORDS SUMMARY | 2025-10-30 07:55 | XMS_ITS | Encounter Summary ---
Author Organization [employer] Address [address] [facility] 7t [place] [address] Care Team Providers Care Detailer Pharmaceuticals Name Role Phone Mary Ellen Ortega MD Primary Care Pro vider Mally Guzman PharmD Unavailable [phone] Reason for Visit * Reason Onset Date Comments HMP pain man. Letter sent 10/29/2025 Encounter Details Date Type Department Care Team ([facility] st Contact Info) Description 10/29/2025 Telephone [facility] 230 [place] [address] Mary Ellen Ortega MD 230 [place], [place] [phone] HMP pain man. Letter sent Social History Tobacco Use Types Packs/Day Years [...] encounter Miscellaneous Notes * Telephone Encounter - Tierra Maya [place] - 10/29/2025 1:38 PM EST Ranger Aide faxed Letter to [facility] canter at [phone]. Ranger Aide sent Letter made today by doctor kendrick and last office note. documented in this encounter Plan of Treatment Upcoming Encounters Date Type Department Care Team (Late st Contact Info) Description 11/03/2025 10:00 AM EST Medication Management [facility] [address] [place] [address] Mally Guzman, PharmD 230 [place] [address] 12/16/2025 9:00 AM EST Office Visit [facility] [address] [place] [address] Mary Ellen Ortega MD [address] [place] [address] 03/16/2026 9:00 AM EDT Office Visit [facility] OPTOMETRY [address] [place] [address] Rebeca Johnson, OD 230 [place] [address] documented as of this encounter Goals Goal Patient Goal Type Associated Problems Recent Progress Patient-Stated? Author Help patients manage their type 2 diabetes Care Plan Help patients manage their type 2 diabetes No Margarita Elena Weekly blood pressure task Care Plan Weekly blood pressure task No Margarita Elena Help patients manage their type 2 diabetes Care Plan Help patients manage their type 2 diabetes No Margarita Elena Patient has chronic kidney disease Care Plan Patient has chronic kidney disease No Margarita Elena Weekly blood pressure task Care Plan Weekly blood pressure task No Margarita Elena Patient has chronic kidney disease Care Plan Patient has chronic kidney disease No Margarita Elena Weekly blood pressure task Care Plan Weekly blood pressure task No Tierra Maya [place] Weekly blood pressure task Care Plan Weekly blood pressure task No Tierra Maya [place] Patient has chronic kidney disease Care Plan Patient has chronic kidney disease No Tierra Maya [place] Patient has chronic kidney disease Care Plan Patient has chronic kidney disease No Tierra Maya [place] Weekly blood pressure task Care Plan Weekly blood pressure task No Piers-Pardo, Mally, PharmD Weekly blood pressure task Care Plan Weekly blood pressure task No Piers-Pardo, Mally, PharmD Patient has chronic kidney disease Care Plan Patient has chronic kidney disease No Piers-Pardo, Mally, PharmD Patient has chronic kidney disease Care Plan Patient has chronic kidney disease No Piers-Pardo, Mally, PharmD Weekly blood pressure task Care Plan Weekly blood pressure task No Piers-Pardo, Mally, PharmD Weekly blood pressure task Care Plan Weekly blood pressure task No Piers-Pardo, Mally, PharmD Patient has chronic kidney disease Care Plan Patient has chronic kidney disease No Piers-Pardo Mally, PharmD Patient has chronic kidney disease Care Plan Patient has chronic kidney disease No Chaparros-PardoWandasa, PharmD Weekly blood pressure task Care Plan Weekly blood pressure task No Piers-Pardo Mally, PharmD Weekly blood pressure task Care Plan Weekly blood pressure task No Chaparros-Pardo Mally, PharmD Patient has chronic kidney disease Care Plan Patient has chronic kidney disease No Chaparros-Pardo Mally, PharmD Patient has chronic kidney disease Care Plan Patient has chronic kidney disease No Chaparros-Pardo Mally, PharmD Weekly blood pressure task Care Plan Weekly blood pressure task No Mary Ellen Ortega MD Weekly blood pressure task Care Plan Weekly blood pressure task No Mary Ellen Ortega MD Patient has chronic kidney disease Care Plan Patient has chronic kidney disease No Mary Ellen Ortega MD Patient has chronic kidney disease Care Plan Patient has chronic kidney disease No Mary Ellen Ortega MD Weekly blood pressure task Care Plan Weekly blood pressure task No Mary Ellen Ortega MD Weekly blood pressure task Care Plan Weekly blood pressure task No Mary Ellen Ortega MD Patient has chronic kidney disease Care Plan Patient has chronic kidney disease No Mary Ellen Ortega MD Patient has chronic kidney disease Care Plan Patient has chronic kidney disease No Mary Ellen Ortega MD Weekly blood pressure task Care Plan Weekly blood pressure task No Gay Peralta, PharmD Weekly blood pressure task Care Plan Weekly blood pressure task No Gay Peralta, PharmD Patient has chronic kidney disease Care Plan Patient has chronic kidney disease No Gay Peralta, PharmD Patient has chronic kidney disease Care Plan Patient has chronic kidney disease No Gay Peralta, PharmD Weekly blood pressure task Care Plan Weekly blood pressure task No Chaparros-Wanda Pardosa, PharmD Weekly blood pressure task Care Plan Weekly blood pressure task No Piers-Pardo Mally, PharmD Patient has chronic kidney disease Care Plan Patient has chronic kidney disease No Chaparros-PardoWandasa, PharmD Patient has chronic kidney disease Care Plan Patient has chronic kidney disease No Chaparros-PardoWandasa, PharmD Weekly blood pressure task Care Plan Weekly blood pressure task No Chaparros-Mally Pardo PharmD Weekly blood pressure task Care Plan Weekly blood pressure task No Chaparros-Wanda Pardosa PharmD Patient has chronic kidney disease Care Plan Patient has chronic kidney disease No Mally Guzman PharmD Patient has chronic kidney disease Care Plan Patient has chronic kidney disease No Mally Guzman PharmD Weekly blood pressure task Care Plan Weekly blood pressure task No Desmond [place] Weekly blood pressure task Care Plan Weekly blood pressure task No Desmond [place] Patient has chronic kidney disease Care Plan Patient has chronic kidney disease No Desmond [place] Patient has chronic kidney disease Care Plan Patient has chronic kidney disease No Desmond [place] Weekly blood pressure task Care Plan Weekly blood pressure task No Mally Guzman PharmD Weekly blood pressure task Care Plan Weekly blood pressure task No Mally Guzman PharmD Patient has chronic kidney disease Care Plan Patient has chronic kidney disease No Mally Guzman PharmD Patient has chronic kidney disease Care Plan Patient has chronic kidney disease No Mally Guzman PharmD Weekly blood pressure task Care Plan Weekly blood pressure task No Lynn Sampson Weekly blood pressure task Care Plan Weekly blood pressure task No Lynn Sampson Patient has chronic kidney disease Care Plan Patient has chronic kidney disease No Lynn Sampson Patient has chronic kidney disease Care Plan Patient has chronic kidney disease No Lynn Sampson Weekly blood pressure task Care Plan Weekly blood pressure task No Mary Ellen Ortega MD Weekly blood pressure task Care Plan Weekly blood pressure task No Mary Ellen Ortega MD Patient has chronic kidney disease Care Plan Patient has chronic kidney disease No Mary Ellen Ortega MD Patient has chronic kidney disease Care Plan Patient has chronic kidney disease No Mary Ellen Ortega MD Weekly blood pressure task Care Plan Weekly blood pressure task No Tierra Maya MA Weekly blood pressure task Care Plan Weekly blood pressure task No Tierra Maya [place] Patient has chronic kidney disease Care Plan Patient has chronic kidney disease No Tierra Maya [place] Patient has chronic kidney disease Care Plan Patient has chronic kidney disease No Tierra Maya MA Weekly blood pressure task Care Plan Weekly blood pressure task No Tierra Maya MA Weekly blood pressure task Care Plan Weekly blood pressure task No Tierra Maya [place] Patient has chronic kidney disease Care Plan Patient has chronic kidney disease No Tierra Maya [place] Patient has chronic kidney disease Care Plan Patient has chronic kidney disease No Tierra Maya [place] documented as of this encounter Visit Diagnoses Not on filedocumented in this encounter Additional Health Concerns Active Problems Noted Date Diagnosed Date Help patients manage their type 2 diabetes 09/22 Weekly blood pressure task 09/22/2025 Help patients manage their type 2 diabetes 09/22 Patient has chronic kidney disease 09/22/2025 Weekly blood pressure task 09/22/2025 Patient has chronic kidney disease 09/22/2025 Weekly blood pressure task 09/24/2025 Weekly blood pressure task 09/24/2025 Patient has chronic kidney disease 09/24/2025 Patient has chronic kidney disease 09/24/2025 Weekly blood pressure task 09/24/2025 Weekly blood pressure task 09/24/2025 Patient has chronic kidney disease 09/24/2025 Patient has chronic kidney disease 09/24/2025 Weekly blood pressure task 09/26/2025 Weekly blood pressure task 09/26/2025 Patient has chronic kidney disease 09/26/2025 Patient has chronic kidney disease 09/26/2025 Weekly blood pressure task 10/03/2025 Weekly blood pressure task 10/03/2025 Patient has chronic kidney disease 10/03/2025 Patient has chronic kidney disease 10/03/2025 Weekly blood pressure task 10/03/2025 Weekly blood pressure task 10/03/2025 Patient has chronic kidney disease 10/03/2025 Patient has chronic kidney disease 10/03/2025 Weekly blood pressure task 10/05/2025 Weekly blood pressure task 10/05/2025 Patient has chronic kidney disease 10/05/2025 Patient has chronic kidney disease 10/05/2025 Weekly blood pressure task 10/11/2025 Weekly blood pressure task 10/11/2025 Patient has chronic kidney disease 10/11/2025 Patient has chronic kidney disease 10/11/2025 Weekly blood pressure task 10/12/2025 Weekly blood pressure task 10/12/2025 Patient has chronic kidney disease 10/12/2025 Patient has chronic kidney disease 10/12/2025 Weekly blood pressure task 10/12/2025 Weekly blood pressure task 10/12/2025 Patient has chronic kidney disease 10/12/2025 Patient has chronic kidney disease 10/12/2025 Weekly blood pressure task 10/13/2025 Weekly blood pressure task 10/13/2025 Patient has chronic kidney disease 10/13/2025 Patient has chronic kidney disease 10/13/2025 Weekly blood pressure task 10/20/2025 Weekly blood pressure task 10/20/2025 Patient has chronic kidney disease 10/20/2025 Patient has chronic kidney disease 10/20/2025 Weekly blood pressure task 10/29/2025 Weekly blood pressure task 10/29/2025 Patient has chronic kidney disease 10/29/2025 Patient has chronic kidney disease 10/29/2025 Weekly blood pressure task 10/29/2025 Weekly blood pressure task 10/29/2025 Patient has chronic kidney disease 10/29/2025 Patient has chronic kidney disease 10/29/2025 Weekly blood pressure task 10/29/2025 Weekly blood pressure task 10/29/2025 Patient has chronic kidney disease 10/29/2025 Patient has chronic kidney disease 10/29/2025 Weekly blood pressure task 10/29/2025 Weekly blood pressure task 10/29/2025 Patient has chronic kidney disease 10/29/2025 Patient has chronic kidney disease 10/29/2025 Assessment Noted Time PHQ-9 Depression Total Score: 11 025 10:50 AM EDT documented as of this encounter Care Teams Detailer Pharmaceuticals Relationship Specialty Start Date End Date Mary Ellen Ortega MD [address] [place] [address] PCP - General Internal Medicine 03/15/23 Mally Guzman PharmD [address] [place] [address] Pharmacist Pharmacy 08/27/25 documented as of this encounter
--- OUTSIDE RECORDS SUMMARY | 2025-10-30 07:55 | XMS_ITS | Encounter Summary ---
Author Organization [employer] Address [address] [facility] 7t [place] [address] Care Team Providers Care Global Marketing Specialist Name Role Phone Mary Ellen Ortega MD Primary Care Pro vider Mally Guzman PharmD Unavailable [phone] Reason for Visit * Reason Onset Date Comments stop medication 10/29/2025 Encounter Details Date Type Department Care Team ([facility] st Contact Info) Description 10/29/2025 Telephone [facility] [address] [place] [address] Mary Ellen Ortega MD 230 [place], [place] [phone] stop medication Social History Tobacco Use Types Packs/Day Years [...] encounter Miscellaneous Notes * Telephone Encounter - Lynn Sampson - 10/29/2025 10:33 AM EST [facility]c from [facility] medication management requesting stop asprin 81 mg and clopidogrel 75mg for 7 days start procedure 11/19 epidural injection thyroid. Please contact [facility] at [phone] documented in this encounter Plan of Treatment Upcoming Encounters Date Type Department Care Team (Late st Contact Info) Description 11/03/2025 10:00 AM EST Medication Management [facility] [address] [place] [phone] Mally Guzman, PharmD 230 [place] [address] 12/16/2025 9:00 AM EST Office Visit [facility] [address] [place] [address] Mary Ellen Ortega MD 230 [place] [address] 03/16/2026 9:00 AM EDT Office Visit [facility] OPTOMETRY [address] [place] [address] Rebeca Johnson, OD 230 [place] [address] documented as of this encounter Goals Goal [...] Plan Weekly blood pressure task No Piers-Pardo, Mlaly, PharmD Weekly blood pressure task Care Plan [...] Plan Weekly blood pressure task No Gay Peralta PharmD Patient has chronic kidney disease Care Plan Patient has chronic kidney disease No Gay Peralta, PharmD Patient has chronic kidney disease Care Plan Patient has chronic kidney disease No Gay Peralta, PharmD Weekly blood pressure task Care Plan Weekly blood pressure task No Chaparros-PardoWandasa, PharmD Weekly blood pressure task [...] blood pressure task No Chaparros-Wanda Pardosa, PharmD Patient has chronic kidney disease Care Plan Patient has chronic kidney disease No Mally Guzman, PharmD Patient has chronic kidney disease Care [...] Care Plan Weekly blood pressure task No ChaparrosWanda Santacruzsa, PharmD Patient has chronic kidney disease Care Plan Patient has chronic kidney disease No Mally Guzman PharmD Patient has chronic kidney disease Care Plan Patient has chronic kidney disease No Mally Guzman, PharmD Weekly blood pressure task Care Plan [...] documented as of this encounter Care Teams Global Marketing Specialist Relationship Specialty Start Date End Date Mary Ellen Ortega MD 230 [place] [address] PCP - General Internal Medicine 03/15/23 Mally Guzman PharmD [address] [place] [address] Pharmacist Pharmacy 08/27/25 documented as of this encounter
--- OUTSIDE RECORDS SUMMARY | 2025-10-30 07:56 | XMS_ITS | Patient Health Record ---
Author Organization [facility] [address] [facility] [address] Care Team Providers Care Rn Radiation Oncology Name Role Phone Larry Carranza Unavailable Unavailable CelCastillo blakeanda Unavailable Unavailable Reason For Referral No Information Plan Of Treatment No Information Insurance Providers Payer Name Payer Address Payer Phone Subscriber Number Group Number Insured Name Patient Relationship to Insured Coverage Start Date Coverage End Date [employer] Medicaid [address] [place] [phone] [id number] Radha Lux Self - patient is the insured
--- OUTSIDE RECORDS SUMMARY | 2025-10-30 07:56 | XMS_ITS | Encounter Summary ---
Author Organization [employer] Address [address] [facility] 7t [place] [address] Care Team Providers Care Billet Recorder Name Role Phone Mary Ellen Ortega MD Primary Care Pro vider Sommer Martinez PharmD Unavailable [phone] Mally Guzman PharmD Unavailable [phone] Reason for Visit * Reason Comments Med Refill Encounter Details Date Type Department Care Team (Late st Contact Info) Description 03/08/2024 Refill [facility] 230 [place], [place] [phone] Patience Garcia ANP [address] [place], [place] [phone] Social History Tobacco Use Types Packs/Day Years [...] with others, in a hotel, in a snf, living outside on the street, on a [...] Description 11/03/2025 10:00 AM EST Medication Management [facility] [address] [place] [phone] Mally Guzman, PharmD [address] [place] [address] 12/16/2025 9:00 AM EST Office Visit [facility] [address] [place] [phone] Mary Ellen Ortega MD 230 [place] [address] 03/16/2026 9:00 AM EDT Office Visit [facility] OPTOMETRY [address] [place] [address] Rebeca Johnson, OD 230 [place] [address] documented as of this encounter Visit Diagnoses Not on filedocumented in this encounter Additional Health Concerns Assessment Noted Time PHQ-9 Depression Total Score: 17 024 12:38 PM EST documented as of this encounter Care Teams Billet Recorder Relationship Specialty Start Date End Date Mary Ellen Ortega MD [address] [place] [phone] PCP - General Internal Medicine 03/15/23 Sommer Martinez, PharmD [address] [place] [address] Pharmacist Internal Medicine 09/30/24 08/25/25 Mally Guzman, ElizabethD [address] [place] [address] [phone] Pharmacist Pharmacy 08/27/25 documented as of this encounter
--- OUTSIDE RECORDS SUMMARY | 2025-10-30 07:56 | XMS_ITS | Encounter Summary ---
Author Organization [employer] Address [address] [facility] 7[address] [place] [address] Care Team Providers Care Modeling Agent Name Role Phone Mary Ellen Ortega MD Primary Care Pro vider Sommer Martinez PharmD Unavailable [phone] Mally Guzman PharmD Unavailable [phone] Encounter Details Date Type Department Care Team (Late st Contact Info) Description 05/27/2025 Refill [facility] [address] [place] [address] Mary Ellen Ortega MD [address] [place] [address] Social History Tobacco Use Types Packs/Day Years [...] Description 11/03/2025 10:00 AM EST Medication Management [facility] [address] [place] [address] [phone] Mally Guzman, PharmD [address] [place] [address] [phone] 12/16/2025 9:00 AM EST Office Visit [facility] [address] [place] [address] [phone] Mary Ellen Ortega MD [address] [place], [place] [phone] 03/16/2026 9:00 AM EDT Office Visit [facility] [address] [place], [place] [phone] Rebeca Johnson, OD [address] [place] [address] documented as of this encounter Visit Diagnoses Not on filedocumented in this encounter Additional Health Concerns Assessment Noted Time PHQ-9 Depression Total Score: 11 025 10:50 AM EDT documented as of this encounter Care Teams Modeling Agent Relationship Specialty Start Date End Date Mary Ellen Ortega MD [address] [place] [address] PCP - General Internal Medicine 03/15/23 Sommer Martinez, ElizabethD [address] [place] [address] [phone] Pharmacist Internal Medicine 09/30/24 08/25/25 Mally Guzman, ElizabethD [address] [place] [address] [phone] Pharmacist Pharmacy 08/27/25 documented as of this encounter
--- OUTSIDE RECORDS SUMMARY | 2025-10-30 07:56 | XMS_ITS | Encounter Summary ---
Author Organization [employer] Address [address] [facility] 7t [place] [address] Care Team Providers Care Cell Operation Supervisor Name Role Phone Mary Ellen Ortega MD Primary Care Pro vider Mally Guzman PharmD Unavailable [phone] Encounter Details Date Type Department Care Team ([facility] st Contact Info) Description 10/29/2025 Orders Only [facility] [address] [place] [address] Mary Ellen Ortega MD [address] [place] [address] Social History Tobacco Use Types Packs/Day Years [...] PM EDT documented as of this encounter Progress Notes * Mary Ellen Orellana MD - 10/29/2025 1:08 PM EST Received today letter from [facility] [place]pain management asking for a clearance letter in regards ASA use given there is plan for caudal epidural steroid injection Pt has Raynauld's ,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 for which patient is taking clopidogrel and ASA Given significance of PVD and low risk for bleeding with procedure and based on [employer] recommendations I suggests stopping clopidogrel 5 days before the procedure and tocontinue Aspirin This letter will be mail with last EKG and last note requested documented in this encounter Plan of Treatment Upcoming Encounters Date Type Department Care Team (Late st Contact Info) Description 11/03/2025 10:00 AM EST Medication Management [facility] [address] [place] [address] Mally Guzman, PharmD [address] [place] [address] 12/16/2025 9:00 AM EST Office Visit [facility] [address] [place] [address] Mary Ellen Ortega MD [address] [place] [address] 03/16/2026 9:00 AM EDT Office Visit [facility] [address] [place] [address] Rebeca Johnson, OD [address] [place] [address] documented as of this encounter Goals Goal [...] Plan Weekly blood pressure task No Mally Guzman, PharmD Patient has chronic kidney disease Care Plan Patient has chronic kidney disease No Mally Guzman, PharmD Patient has chronic kidney disease Care Plan Patient has chronic kidney disease No Mally Guzman PharmJocelyn Weekly blood pressure task Care Plan Weekly blood pressure task No Jaya-Pardo Mally, PharmD Weekly blood pressure task Care [...] Plan Patient has chronic kidney disease No Chaparros-PardoaWndasa, PharmD Patient has chronic kidney disease Care [...] Care Plan Weekly blood pressure task No Piers-PardoWandasa, PharmD Patient has chronic kidney disease Care [...] documented as of this encounter Care Teams Cell Operation Supervisor Relationship Specialty Start Date End Date Mary Ellen Ortega MD [address] [place], [place] [phone] PCP - General Internal Medicine 03/15/23 Mally Guzman PharmD [address] [place] [address] Pharmacist Pharmacy 08/27/25 documented as of this encounter
--- OUTSIDE RECORDS SUMMARY | 2025-10-30 07:56 | XMS_ITS | Encounter Summary ---
Author Organization [employer] Address [address] [facility] 7[address] [place] [address] Care Team Providers Care Bench Loom Weaver Name Role Phone Mary Ellen Ortega MD Primary Care Pro vider Sommer Martinez PharmD Unavailable [phone] Mally Guzman PharmD Unavailable [phone] Reason for Visit * Reason Comments Med Refill Encounter Details Date Type Department Care Team (Late st Contact Info) Description 02/26/2025 Refill [facility] [address] [place], [place] [phone] Mary Ellen Ortega MD [address] [place], [place] [phone] Social History Tobacco Use Types Packs/Day Years [...] Upcoming Encounters Date Type Department Care Team ([facility] st Contact Info) Description 11/03/2025 10:00 AM EST Medication Management [facility] [address] [place] [phone] Mally Guzman, PharmD [address] [place] [address] 12/16/2025 9:00 AM EST Office Visit [facility] [address] [place] [phone] Mary Ellen Ortega MD [address] [place] [address] 03/16/2026 9:00 AM EDT Office Visit [facility] [address] [place] [phone] Rebeca Johnson, DAK[place] [address] [place] [address] documented as of this encounter Visit Diagnoses Not on filedocumented in this encounter Additional Health Concerns Assessment Noted Time PHQ-9 Depression Total Score: 12 024 2:32 PM EDT documented as of this encounter Care Teams Bench Loom Weaver Relationship Specialty Start Date End Date Mary Ellen Ortega MD [address] [place] [address] PCP - General Internal Medicine 03/15/23 Sommer Martinez, [place]D [address] [place] [address] Pharmacist Internal Medicine 09/30/24 08/25/25 Mally Guzman, ElizabethD [address] [place] [phone] Pharmacist Pharmacy 08/27/25 documented as of this encounter
--- OUTSIDE RECORDS SUMMARY | 2025-10-30 07:56 | XMS_ITS | Encounter Summary ---
Author Organization [employer] Address [address] [facility] 7t [place] [address] Care Team Providers Care Bridge Expert Name Role Phone Mary Ellen Ortega MD Primary Care Pro vider Sommer Martinez PharmD Unavailable [phone] Mally Guzman PharmD Unavailable [phone] Reason for Visit * Reason Comments Med Refill Encounter Details Date Type Department Care Team (Late st Contact Info) Description 05/27/2025 Refill [facility] [address] [place], [place] [phone] Mary Ellen Rosario MD [address] [place], [place] [phone] Social History Tobacco Use Types Packs/Day Years [...] Upcoming Encounters Date Type Department Care Team ([facility] st Contact Info) Description 11/03/2025 10:00 AM EST Medication Management [facility] [address] [place] [phone] Mally Guzman, PharmD [address] [place] [address] 12/16/2025 9:00 AM EST Office Visit [facility] [address] [place] [address] Mary Ellen Ortega MD [address] [place] [address] 03/16/2026 9:00 AM EDT Office Visit [facility] [address] [place] [phone] Rebeca Johnson, DAK[place] [address] [place] [address] documented as of this encounter Visit Diagnoses Not on filedocumented in this encounter Additional Health Concerns Assessment Noted Time PHQ-9 Depression Total Score: 11 05/13/ 025 10:50 AM EDT documented as of this encounter Care Teams Bridge Expert Relationship Specialty Start Date End Date Mary Ellen Ortega MD [address] [place] [address] PCP - General Internal Medicine 03/15/23 Sommer Martinez, PharmD [address] [place] [address] Pharmacist Internal Medicine 09/30/24 08/25/25 Mally Guzman, [place]D [address] [place] [address] Pharmacist Pharmacy 08/27/25 documented as of this encounter
--- OUTSIDE RECORDS SUMMARY | 2025-10-30 07:56 | XMS_ITS | Clinical Summary ---
Author Organization [employer] Address [address] [place] [address] [address] [place] [address] Care Team Providers Care Commodity Lead Name Role Phone Mary Ellen Ortega MD [...] FOR WHEEZING 90 mL 2 024 Active Diclofenac Sodium 1 % gelIndications :Pain of toe of right foot APPLY 2 GRAMS TOPICALLY TO AFFECTED AREA(S) FOUR TIMES DAILY FOR PAIN AND SWELLING 100 g 2 024 Active Adderall XR 25 MG 24 hr capsule Take 25 mg by mouth in the morning. 024 Active betamethasone, augmented, (Diprolene) 0.05 % ointmentIndica [...] 15 mg by mouth at bedtime. Active Fluticasone Furoate-Vilant zoya (Breo Ellipta) 100-25 MCG/ACT aerosol powder Inhale 1 Inhalation Once per day. 60 each 10/13/20 11:04 AM EST Active acetaminophen (Tylenol Extra Strength) 500 MG tabletIndicati ons:Sinus pressure TAKE 1 TO 2 TABLETS BY MOUTH UP TO THREE TIMES DAILY NEEDED FOR PAIN 45 tablet Active glucose blood (FreeStyle Precision Geoff Test) test strip Use to test blood sugar 2 times daily in case of CGM failure or extremes of BG 50 each 10/13/20 25 11:04 AM EST 2025 Active EPINEPHrine (Epipen) 0.3 MG/0.3ML injection syringe Inject 0.3 mL (0.3 mg) as directed 1 (one) time for 1 dose. use as directed for allergic reaction and then call 911 1 each 2 Active Trulicity 1.5 MG/0.5ML solution auto-injector INJECT ONE PEN (=1.5MG) SUBCUTANEOUSLY ONCE A WEEK DIRECTED 2 mL 10/13/20 11:04 AM EST Active cetirizine (ZyrTEC) 10 MG tablet TAKE 1 TABLET BY MOUTH AT BEDTIME 90 tablet 1 Active gabapentin (Neurontin) 100 MG capsule Take 200 mg by mouth in the morning and 200 mg at noon and 200 mg in the evening. Active sodium chloride ([place]) 0.65 % nasal spray Administer 1 spray into each nostril if needed for congestion. 15 mL 2 2025 Active valsartan-hydr oCHLOROthiazid e (Diovan-HCT) 320-25 MG tablet TAKE 1 TABLET BY MOUTH EVERY MORNING 90 tablet 1 025 Active potassium chloride CR (Klor-Con) 10 MEQ ER tablet TAKE 1 TABLET BY MOUTH EVERY MORNING 90 tablet 1 025 Active metFORMIN (Glucophage) 500 MG tablet TAKE 1 TABLET BY MOUTH EVERY MORNING 90 tablet 1 025 Active montelukast (Singulair) 10 MG tablet TAKE 1 TABLET BY MOUTH AT BEDTIME 90 tablet 1 025 Active clotrimazole (Lotrimin) 1 % vaginal creamIndicatio ns:Vulvovagina l Candidiasis Insert one applicator per vagina at bedtime for 7 nights 45 g 025 Active Continuous Glucose Sensor (FreeStyle Taco 2 Plus Sensor) miscIndication s:Type 2 diabetes mellitus with other circulatory complication, with long-term current use of insulin (HCC) 1 Device every 15 days. Apply 1 sensor as directed every 15 days for CGM 2 each 10/18/20 25 4:55 PM EST 025 Active Insulin Disposable Pump (Omnipod 5 Libre2 G6 Intro G5) kitIndications :Type 2 diabetes mellitus with other circulatory complication, with long-term current use of insulin (HCC) 1 Device Once per day. Use as directed for insulin administration. One kit = 30 day supply. 1 kit 025 Active Insulin Disposable Pump (Omnipod 5 Libre2 Plus G6 Pods) miscIndication s:Type 2 diabetes mellitus with other circulatory complication, with long-term current use of insulin (HCC) 1 Device every 3 (three) days. Wear daily for insulin administration. Apply a new pod every 72 hours as directed.) 10 each 11 10/18/20 25 4:55 PM EST 025 Active Insulin Lispro 100 UNIT/ML solutionIndica tions:Type 2 diabetes mellitus with other circulatory complication, with long-term current use of insulin (HCC) Inject 2 mL (200 Units) as directed Use as directed. Every 3 days with omnipod system 20 mL 3 10/13/20 25 11:04 AM EST 025 Active insulin lispro (HumaLOG) 100 UNIT/ML injectionIndic ations:Type 2 diabetes mellitus with other circulatory complication, with long-term current use of insulin (HCC) INJECT 10 UNITS SUBCUTANEOUSLY THREE TIMES DAILY BEFORE MEALS 15 mL 3 10/13/20 25 11:04 AM EST Active insulin glargine (Lantus SoloStar) 100 UNIT/ML penIndications :Type 2 diabetes mellitus with other circulatory complication, with long-term current use of insulin ([facility]) Inject 27 Units under the skin Once per day 15 mL 3 10/13/20 25 11:04 AM EST Active FLUoxetine (PROzac) 40 MG capsule Take 40 mg by mouth in the morning. Active tiZANidine (Zanaflex) 2 MG tablet TAKE 1 TABLET BY MOUTH THREE TIMES DAILY orb FOR MUSCLE SPASMS Active Pentips Generic Pen [place] 32G X 4 MM misc USE FOUR TIMES DAILY 100 each 3 10/13/20 25 11:04 AM EST Active amLODIPine (Norvasc) 10 MG tablet Take 1 tablet (10 mg) by mouth at bedtime. 90 tablet Active aspirin (Aspirin Low Dose) 81 MG chewable tablet TAKE 1 TABLET BY MOUTH EVERY MORNING (CHEW) 90 tablet Active clopidogrel (Plavix) 75 MG tablet Take 1 tablet (75 mg) by mouth in the morning. 90 tablet Active atorvastatin (Lipitor) 20 MG tablet Take 1 tablet (20 mg) by mouth in the morning. 90 tablet Active dapagliflozin (Farxiga) 10 MG Take 1 tablet (10 mg) by mouth in the morning. 90 tablet Active fluticasone (Flonase) 50 MCG/ACT nasal sprayIndicatio ns:Nasal congestion Administer 1-2 sprays into each nostril Once per day. Shake gently. Before first use, prime pump. After use, clean tip and replace cap. To treat for 21 days only for acute sinusitis does not need refill 16 g 10/18/20 25 4:55 PM EST 2025 Active Ventolin HFA 108 (90 Base) MCG/ACT inhalerIndicat ions:Shortness of breath Inhale 2 puffs every 4 (four) hours if needed for wheezing. 18 g 3 10/18/20 25 4:55 PM EST Active ketoconazole (NIZOral) 2 % shampooIndicat ions:Seborrhei c dermatitis APPLY TOPICALLY TWICE DAILY. LEAVE ON FOR 5 MINUTES THEN RINSE 120 mL 1 Active Ventolin HFA 108 (90 Base) MCG/ACT inhaler INHALE 2 PUFFS EVERY 4 HOURS NEEDED FOR WHEEZING 18 g 3 024 2024 Discontinued(R eorder (will not trigger notification to Pharmacy)) Continuous Glucose Primer Charging Tool Setter (PeppercornStFlockOfBirds Taco 3 Browning) device 1 each Once per day. Use as directed for CGM 1 each 025 2024 Discontinued(M ed list cleanup (will not trigger notification to Pharmacy)) insulin pen needle (Embark HoldingsLite Pen [place]) 32G x 4 mm misc USE DIRECTED FOUR TIMES DAILY 100 each 3 025 2024 Discontinued fluticasone (Flonase) 50 MCG/ACT nasal spray Administer 1-2 sprays into each nostril Once per day. Shake gently. Before first use, prime pump. After use, clean tip and replace cap. To treat for 21 days only for acute sinusitis does not need refill 16 g 025 2024 Discontinued(R eorder (will not trigger notification to Pharmacy)) atorvastatin (Lipitor) 20 MG tablet Take 1 tablet (20 mg) by mouth in the morning. 90 tablet 025 2024 Discontinued(R eorder (will not trigger notification to Pharmacy)) dapagliflozin (Farxiga) 10 MG Take 1 tablet (10 mg) by mouth in the morning. 90 tablet 025 2024 Discontinued(R eorder (will not trigger notification to Pharmacy)) clopidogrel (Plavix) 75 MG tablet Take 1 tablet (75 mg) by mouth in the morning. 90 tablet 025 2024 Discontinued(R eorder (will not trigger notification to Pharmacy)) aspirin (Aspirin Low Dose) 81 MG chewable tablet TAKE 1 TABLET BY MOUTH EVERY MORNING (CHEW) 90 tablet 025 2024 Discontinued(R eorder (will not trigger notification to Pharmacy)) amLODIPine (Norvasc) 10 MG tablet Take 1 tablet (10 mg) by mouth at bedtime. 90 tablet 025 2024 Discontinued(R eorder (will not trigger notification to Pharmacy)) ketoconazole (NIZOral) 2 % shampooIndicat ions:Seborrhei c dermatitis APPLY TOPICALLY TO SCALP TWICE DAILY. 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 Radha is engaged with psychiatry services with [facility]; reports medication is working and helping to decrease sxs. Still waiting for OP individual therapy (currently on wait list). During today's consult, clinician engaged patient with active, reflective listening. Reviewed and assessed for risk, current stressors and protective factors. Pt agreed to follow-up with [facility] regarding referral placed. clinician will [...] protective factors. Pt agreed to follow-up with [facility] regarding referral placed (I printed [...] and housing. [place] . 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 Radha is engaged with psychiatry services with [facility]; reports medication is working and helping to decrease sxs. Still waiting for OP individual therapy (currently on wait list). During today's consult, clinician engaged patient with active, reflective listening. Reviewed and assessed for risk, current stressors and protective factors. Pt agreed to follow-up with [facility] regarding referral placed. clinician will [...] and housing. Radha has recently [place] . She's currently taking care [...] and no indication for fibrates -referred to numerical control router operator and can dragger at previous visit -BASIA Alba.Rehana will check status of referrals -will repeat [...] needed if LDL > 70 -referred to numerical control router operator and can dragger at previous visit -[facility] -L.A will check [...] needed if LDL > 70 -referred to numerical control router operator and can dragger at previous visit -[facility] -Samantha.A will check status of referrals -will repeat [...] statins -low dose lipitor -referred today to numerical control router operator and can dragger -will repeat DM labs and fasting lipids [...] Hx of AKA (above knee amputation), left ([facility] ) 03/05/2023 Assessment & Plan (07/25/2023 7:11 [...] wheelchair -continue ASA,plavix -routed this note to [facility] x wheelchair request and already started [...] and housing. [place] . She's currently taking care [...] and housing. Radha has recently [place] . She's currently taking care [...] and exercise,discussed healthy life style -referred x sheetmetal worker Assessment & Plan (05/31/2023 10:05 PM EDT): Advised pt to improve diet and exercise,discussed healthy life style -referred today x sheetmetal worker Assessment & Plan (05/01/2023 7:17 PM EDT): Advised pt to improve diet and exercise,discussed healthy life style -will discuss about sheetmetal worker referral at next visit Skin lesion 05/01/2023 07/25/2023 Assessment & Plan (05/31/2023 10:09 PM EDT): Reports chronic skin lesions in scalp and palms using chronically topical steroids saw loom operator s/p resection of skin tags but has mils surrounding erythema -mupirocin TID x 7 days Assessment & Plan (05/01/2023 7:19 PM EDT): Reports chronic skin lesions in scalp and palms using chronically topical steroids -triamcinolone -referred to loom operator today for further eval Depression 03/15/2023 03/15/2023 Moderate persistent asthma 03/05/2023 0 03/15/2023 Encounters * This document contains information received from the source organization and may not represent a complete record from that organization. Date Type Department Care Team Description 10/29/2025 Telephone [facility] [place] [address] Mary Ellen Ortega MD HMP pain man. Letter sent 10/29/2025 Orders Only [facility] [place] [address] Mary Ellen Ortega MD 10/29/2025 Telephone [facility] [place] [address] Mary Ellen Ortega MD stop medication 10/20/2025 3:30 PM EST Telemedicine [facility] [place] [address] Mally Guzman PharmD Type 2 diabetes mellitus with other circulatory complication, with long-term current use of insulin (HCC) (Primary Dx) 10/18/2025 Refill [facility] [place] [address] Mary Ellen Ortega MD Seborrheic dermatitis 10/13/2025 10:30 AM EST Office Visit [facility] [place] [address] Evy Elizabeth NP Nasal congestion (Primary Dx); Shortness of breath; Acute nasopharyngitis 10/13/2025 Travel 10/12/2025 Telephone [facility] [place] [address] Mally Guzman PharmD CDTM Follow Up 10/11/2025 Refill [facility] [place] [address] Mary Ellen Ortega MD 10/05/2025 Results Follow-Up [facility] [place] [address] Mary Ellen Ortega MD BI Mammogram Screening Tomosynthesis Bilateral 10/03/2025 Orders Only [facility] [place] [address] Mary Ellen Ortega MD Type 2 diabetes mellitus with other circulatory complication, with long-term current use of insulin (HCC) (Primary Dx) 10/01/2025 Refill [facility] [place] [address] Mary Ellen Ortega MD 09/24/2025 Travel 09/24/2025 Telephone [facility] [place] [address] Mary Ellen Ortega MD feb recall 09/21/2025 Telephone [facility] [place] [address] Mally Guzman, PharmD 09/21/2025 Travel 09/20/2025 Orders Only [facility] [place] [address] Mary Ellen Ortega MD 09/08/2025 Travel 08/25/2025 3:00 PM EDT Office Visit [facility] [place] [address] Michelle Gould MD Yeast infection (Primary Dx); Dysuria 08/25/2025 Travel 08/19/2025 Telephone [facility] [place] [address] Mary Ellen Ortega MD Results 08/18/2025 Refill [facility] [place] [address] Mary Ellen Ortega MD Seborrheic dermatitis 08/16/2025 11:20 AM EDT Office Visit [facility] [place] [address] Evy Elizabeth YOHAN Bilateral flank pain (Primary Dx); Vaginal discharge 08/16/2025 Results Follow-Up [facility] [address] [place] [phone] AppramEvy NP Bacterial Vaginosis 08/16/2025 Results Follow-Up [facility] [address] [place] [phone] AppramEvy, YOHAN Urinalysis Complete, Culture, Urine, Routine 08/16/2025 Orders Only [facility] [address] [place] [phone] AppraEvy crocker NP 08/16/2025 Travel 08/11/2025 Results Follow-Up [address] [address] Mary Ellen Ortega MD CBC auto differential, Hepatic Function Panel, Basic Metabolic Panel, Additional followed-up results: 5 08/10/2025 Orders Only GENERIC EXTERNAL DATA DEPARTMENT Provider, Generic External Data from Last 3 Months Immunizations Immunization Administration [...] Sign Reading Time Taken Comments Blood Pressure 130/82 10/13/2025 9:25 AM EST Pulse 80 10/13/2025 9:25 AM EST Temperature 37.1 C (98.7 F) 10/13/2025 9:25 AM EST Respiratory Rate 20 10/13/2025 9:25 AM EST Oxygen Saturation 96% 10/13/2025 9:25 AM EST Inhaled Oxygen Concentration - - Weight 80.7 kg (178 lb) 10/13/2025 9:25 AM EST Height 172.7 cm (5' 8 ) 10/13/2025 9:25 AM EST Body Mass Index 27.06 10/13/2025 9:25 AM EST Plan of Treatment Upcoming Encounters Date Type Department Care Team (Late st Contact Info) Description 11/03/2025 10:00 AM EST Medication Management [facility] [address] [place] [address] Mally Guzman, PharmD [address] [place] [address] 12/16/2025 9:00 AM EST Office Visit [facility] [address] [place] [address] Mary Ellen Ortega MD [address] [place] [address] 03/16/2026 9:00 AM EDT Office Visit [facility] [address] [place] [address] Alex, Rebeca, OD [address] [place] [address] Health Maintenance Due Date Last Done Comments CT Colonography 1968 Colonoscopy 1968 Colorectal Cancer Screening 1968 Dental X-Ray: Bitewings 1968 Dental X-Ray: Full Mouth 1968 FIT DNA/Cologuard 1968 FIT 1968 FOBT 1968 Sigmoidoscopy 1968 Diabetes: Foot Exam 10/23/2024 10/23/2023 Lipid Panel 05/04/2025 05/04/2024, 07/12, 03/08/2023 Diabetes: Urine Protein Screening 05/07/2025 05/07/2024, 07/22/2023, 07/22/2023 COVID-19 Vaccine ( season) 2025 09/30/2024, 05/07/2024, 05/01/2023 Depression Monitoring 11/13/2025 05/13/2025, 025 Dental Oral Exam 11/19/2025 05/18/2025, 05/2025, 04/07/2024 Dental Prophylaxis 11/19/2025 05/18/2025, 0 11/17/2024, 06/16/2024 Diabetes: Hemoglobin A1C 11/25/2025 025, 05/13/2025, 02/11/2025, Additional history exists Alcohol/Substance Use Screening 02/22/2026 02/22/2025 SDOH Screening 02/22/2026 02/22/2025 Mammogram 03/20/2026 09/20/2025, 110 02/2024, 09/14/2024, Additional history exists Disability Screening 05/13/2026 05/13/2025 Tobacco Screening 10/13/2026 10/13/2025 Eye Exam 03/15/2027 03/15/2025, 050 03/2025, 03/15/2025, Additional history exists Cervical Cancer Screening 04/07/2029 HPV/Cotest 04/07/2029 04/07/2024 Pap Smear 04/07/2029 04/07/2024 DTaP/Tdap/Td Vaccines (2 - Td or Tdap) 03/26/2033 03/26/2023 HIV Screening Completed 03/08/2023 Hepatitis C Screening Completed 03/08/2023 Zoster Vaccines Completed 02/14/2024, 03/15/2023 Hepatitis B Vaccines Completed 04/14/2024, 02/14/2024, 09/19/2023 Pneumococcal Vaccine: 50+ Years Completed 05/07/2024 Influenza Vaccine Completed 07/29/2025, , 09/19/2023 RSV [...] topic Meningococcal Vaccine Aged Out No hector pza eligible based on patient's age to complete this topic RSV under 20 months Aged Out No longe r eligible based on patient's age to complete this topic Rotavirus Vaccines Aged Out No longer eligible based on patient's age to complete this topic Goals Goal Patient Goal Type Associated Problems [...] chronic kidney disease No Piers-Pardo Mally, PharmD Weekly blood pressure [...] Plan Patient has chronic kidney disease No MaryE llen Ortega MD Weekly blood pressure task Care [...] blood pressure task No Chaparros-Pardo Mally, PharmD Weekly blood pressure [...] Patient has chronic kidney disease No Mally Gumzan PharmD Weekly blood pressure task Care Plan [...] Weekly blood pressure task No Mally Guzman PharmJocelyn Weekly blood pressure task Care Plan Weekly blood pressure task No Chaparros-PardoWandasa PharmD Patient has chronic kidney disease Care Plan Patient has chronic kidney disease No ChaparrosMally Santacruz PharmD Patient has chronic kidney disease Care [...] Plan Weekly blood pressure task No Tierra Maay MA Weekly blood pressure task Care Plan [...] chronic kidney disease No Tierra Maya MA Procedures Procedure Name Priority Date/Time Associated Diagnosis Comments POCT INFLUENZA B (ID NOW RAPID MOLECULAR) Routine 10/13/2025 10:06 AM EST Shortness of breath POCT INFLUENZA A (ID NOW RAPID MOLECULAR) Routine 10/13/2025 10:06 AM EST Shortness of breath POCT COVID-19 AG BADILLO ID NOW Routine 10/13/2025 10:04 AM EST Shortness of breath BI MAMMOGRAM SCREENING TOMOSYNTHESIS BILATERAL Routine 09/20/2025 9:15 AM EST POCT URINALYSIS DIPSTICK Routine 08/25/2025 3:33 PM EDT Dysuria POCT GLYCATED HEMOGLOBIN, TOTAL Routine 08/25/2025 2:50 PM EDT Type 2 diabetes mellitus with other circulatory complication, with long-term current use of insulin (HCC) URINALYSIS, COMPLETE (INCLUDES MACRO AND MICRO) Routine 08/16/2025 12:00 AM EDT Bilateral flank [...] WO CONTRAST Routine 08/03/2025 9:29 AM EDT PROPHYLAXIS - ADULT Routine 05/18/2025 3 :00 PM EDT PERIODIC ORAL EVALUATION - ESTABLISHED PATIENT Routine 05/18/2025 3:00 PM EDT ALBUMIN, RANDOM URINE W/CREATININE Routine 05/07/2024 3:30 [...] Relevant to Health Maintenance Results * POCT Rapid Influenza B BADILLO ID NOW (10/13/2025 10:06 AM EST) Influenza B Negative Negative, Indeterminate [facility] QC Media Lot # [id number] [facility] Lot# Expiration Date [facility] Swab 10/13/2025 10:0 6 AM EST us Evy Elizabeth SHOP FITTER POINT OF CARE TEST ENTER/EDIT O RDERABLES Final Result Performing Organization Address [facility]/ZIP Co de Phone Number [facility] [address] [place] [phone] * POCT Rapid Influenza A BADILLO ID NOW (10/13/2025 10:06 AM EST) Influenza A Negative Negative, Indeterminate [facility] QC Media Lot # [id number] [facility] Lot# Expiration Date [facility] Swab 10/13/2025 10:0 6 AM EST us Oglesbymerle Ortiz SHOP FITTER POINT OF CARE TEST ENTER/EDIT O RDERABLES Final Result Performing Organization Address [facility] de Phone Number [facility] [address] [place] [phone] * POCT Rapid Covid-19 BADILLO ID NOW (10/13/2025 10:04 AM EST) Coronavirus Antigen PCR Negative Negative, Indeterminate, None Detected, Trace, 3+, Specimen unsatisfactory for evaluation, Weakly Positive, 1+, 2+ QC Media Lot # [id number] Lot# Expiration Date Swab 10/13/2025 10:0 4 AM EST us Ratliff Appram SHOP FITTER POINT OF CARE TEST ENTER/EDIT O RDERABLES Final Result * BI Mammogram Screening Tomosynthesis Bilateral (09/20/2025 9:15 AM EST) Anatomical Region Laterality Modality Breast Bilateral Mammography 09/20/2025 9:15 AM EST Narrative 09/24/2025 9:34 AM EST [address] [place] [address] Mammography Report Signed Patient: Radha Nguyen#: [id number] : 1970 Acct:[id number] Age/Sex: 55 / F ADM Date: 09/20/25 Loc: HO.MAMMO Attending Dr: Mary Ellen Orellana MD Ordering Physician: Mary Ellen Ortega MD Re sults: 1Negative Date of Service: 09/20/25 Follow Up: 1 Year From Orig inal Mammogram Procedure(s): MM tomosynthesis screening BI Accession Number(s): [id number] cc: Mary Ellen Ortega MD Reason For Exam: SCREENING EXAMINATION: MM SCREENING DIGITAL BREAST TOMOSYNTHESIS, BILATERAL CLINICAL INFORMATION: Screening. Asymptomatic. COMPARISON: Mammography: Comparison is made with available priors TECHNIQUE: Digital breast mammography with tomosynthesis is performed in both the craniocaudal and mediolateral oblique views along with computer-aided detection (CAD). FINDINGS: There are scattered areas of fibroglandular density. There are no significant masses, abnormal calcifications, or other abnormalities. MM/MM tomosynthesis screening BI IMPRESSION: No mammographic evidence of malignancy. ASSESSMENT: BI-RADS Category 1: Negative RECOMMENDATION: Routine annual mammography screening. 1 year F/U This examination should not preclude the clinical evaluation of a suspicious palpable abnormality. This patient's information was entered into a reminder system with a target due date for their next mammogram. Electronically signed by: Amparo Rosado DO 09/24/2025 09:31 AM EST Dictated By: Amparo Rosado DO Signed By: <Electronically signed by Amparo Rosado DO in OV> 09/24/25930 DD/ 4 TD/TT: 09/20/25931 Associate Counsel: Procedure Note Donotuseinterpreter, Image - 09/24/[address] [place] [address] Mammography Report Signed Patient: Adeola Nguyen R#: [id number] : 1970Acct:[id number] Age/Sex: 55 / FADM Date: 09/20/25 Loc: HO.MAMMO Attending Dr: Mary Ellen Orellana MD Ordering Physician: Mary Ellen Ortega sults: 1Negative Date of Service: 09/20/25Follow Up: 1 Year From Orig inal Mammogram Procedure(s): MM tomosynthesis screening BI Accession Number(s): [id number] cc: Mary Ellen Ortega MD Reason For Exam: SCREENING EXAMINATION: MM SCREENING DIGITAL BREAST TOMOSYNTHESIS, BILATERAL CLINICAL INFORMATION: Screening. Asymptomatic. COMPARISON: Mammography: Comparison is made with available priors TECHNIQUE: Digital breast mammography with tomosynthesis is performed in both the craniocaudal and mediolateral oblique views along with computer-aided detection (CAD). FINDINGS: There are scattered areas of fibroglandular density. There are no significant masses, abnormal calcifications, or other abnormalities. MM/MM tomosynthesis screening BI IMPRESSION: No mammographic evidence of malignancy. ASSESSMENT: BI-RADS Category 1: Negative RECOMMENDATION: Routine annual mammography screening. 1 year F/U This examination should not preclude the clinical evaluation of a suspicious palpable abnormality. This patient's information was entered into a reminder system with a target due date for their next mammogram. Electronically signed by: Amparo Rosado DO 09/24/2025 09:31 AM EST Dictated By: Amparo Rosado DO Signed By: <Electronically signed by Amparo Rosado DO in OV> 09/24/25930 DD/ 4 TD/TT: 09/20/25931 Associate Counsel: us Mary Ellen Orellana MD IMG BI PROCEDURES Final Result * POCT urinalysis dipstick manually resulted (CPT 98252) (08/25/2025 3:33 PM EDT) Color, UA Yellow Clarity, UA Clear Glucose, UA Comment:1000 Bilirubin, UA Negative Ketones, UA Comment:trace Spec Grav, UA 1.015 Blood, UA Negative Negative, None Detected pH, UA 6.0 Protein, UA Negative Urobilinogen, UA 0.2 Leukocytes, UA Negative Negative, Rare, Trace Nitrite, UA Negative Negative, None Detected Appearance, UA clear QC Media Lot # [id number] Lot# Expiration Date 63,026 Urine (Urine, Random) 08/25/2025 3:33 PM EDT Michelle Gould MD POINT OF CARE TEST ENTER/E DIT ORDERABLES Final Result * (ABNORMAL) POCT A1c (08/25/2025 2:50 PM EDT) Pathologist [facility] Hemoglobin A1C 7.2(A) 4.0 - 5.7 % QC Media Lot # [id number] Lot# Expiration Date 5,,027 Blood 08/25/2025 2:50 PM EDT Mary Ellen Orellana MD POINT OF CARE ANDRÉS T ENTER/EDIT ORDERABLES Final Result * (ABNORMAL) Bacterial Vaginosis (08/16/2025 12:00 AM EDT) Pathologist [facility] TRICHOMONAS VAGINALIS DETECTION BY PCR NOT DETECTED Not Detect [facility] BACTERIAL VAGINOSIS DETECTION BY PCR NEGATIVE Negative [facility] Comment:The BV organism targ ets [...] GROUP DETECTION BY PCR DETECTED(A) Not Detect [facility] Marichuy glab krusei PCR DETECTED(A) Not Detect [facility] 08/16/2025 08/16/2025 [facility] MICROBIOLOGY - GENERAL ORDE RABLES Final Result Performing Organization Address [facility] Co de Phone Number [facility] [address] [place] [phone] * (ABNORMAL) Urinalysis Complete (08/16/2025 12:00 AM EDT) Color Urine Yellow [facility] Appearance Urine Clear [facility] PH 6.5 5.0 - 9.0 [facility] Glucose Urine UA >=1000(A) Negative mg/dL [facility] Urine Blood Negative Negative [facility] Specific Edward - Urine >=1.030(H) 1.005 - 1.025 [facility] Urine Protein Negative Neg-Trace mg/dL [facility] Urine Ketones Negative Negative mg/dL [facility] Nitrite Urine Negative Negative [facility] Leukocyte Esterase Urine Negative Negative [facility] RBC Urine 0-2 0 - 2 /HPF [facility] Urine WBC 11-20(A) 0 - 5 /HPF [facility] Urine Squamous Epithelial Cell 6-10 0 - 2 /HPF [facility] Other Crystals Urine Present [facility] Urine Bacteria None Seen None Seen [facility] Hyaline Casts, Urine 0-2 0 - 2 /LPF [facility] Urine (Urine, Random) 08/16/2025 08/16/2025 Evy Diana [facility] URINE ORDERABLES Final Resu lt Performing Organization Address City/[facility]/ZIP Co de Phone Number [facility] [address] [place] [phone] * Culture, Urine, Routine (08/16/2025 12:00 AM EDT) Only the most recent of2 resultswithin the time period is included. Urine Urine specimen obtained by clean catch procedure / Unknown 08/16/2025 08/16/2025 Comment:UACC Narrative [facility] - 08/18/2025 12:29 PM EDT Urine Culture Report Result Urine Culture > 100,000 cfu/ml Urine Culture Mixed bacterial luca characteristic of Urine Culture urogenital contamination. Specimen Source: Urine clean catch us Evy Elizabeth [facility] MICROBIOLOGY - GENERAL HOMA FLOYD Final Result Performing Organization Address [facility]/ZIP Co de Phone Number [facility] [address] [place] [phone] * (ABNORMAL) Urinalysis, Complete, with Reflex to Culture (08/10/2025 3:23 PM EDT) Color Urine Dark Yellow [facility] Appearance Urine Clear [facility] PH 5.5 5.0 - 9.0 [facility] Glucose Urine UA >=1000(A) Negative mg/dL [facility] Urine Blood Negative Negative [facility] Specific Edward - Urine >=1.030(H) 1.005 - 1.025 [facility] Urine Protein Trace Neg-Trace mg/dL [facility] Urine Ketones Trace Negative mg/dL [facility] Nitrite Urine Positive(A) Negative [facility] Leukocyte Esterase Urine Trace(A) Negative [facility] RBC Urine 0-2 0 - 2 /HPF [facility] Urine WBC 21-50(A) 0 - 5 /HPF [facility] Urine Squamous Epithelial Cell 3-5 0 - 2 /HPF [facility] Urine Bacteria 4+ None Seen [facility] Hyaline Casts, Urine 0-2 0 - 2 /LPF [facility] 08/10/2025 3:23 PM EDT 08/10/2025 3:32 PM EDT Narrative [facility] - 08/10/2025 3:42 PM EDT Urine, Clean Catch us Generic External Data Provider LAB URINE ORDERAB LES Final Result Performing Organization Address City/[facility]/ZIP Co de Phone Number [facility] [address] [place] [phone] * US Renal Complete (08/10/2025 12:59 PM EDT) Anatomical Region Laterality Modality Kidney Ultrasound 08/10/2025 12:5 9 PM EDT Narrative 08/10/2025 1:45 PM EDT [address] [address] Ultrasound Report Signed Patient: Radha Nguyen#: [id number] : 1970 Acct:[id number] Age/Sex: 54 / F ADM Date: 08/10/25 Loc: .ED Attending Dr: Ordering Physician: Ailyn Bowen Date of Service: 08/10/25 Procedure(s): US renal BI Accession Number(s): [id number] cc: Mary Ellen Ortega MD; Ailyn Bowen [...] 08/10/25 1342 DD/ 1259 TD/TT: 08/10/25 1318 Associate Counsel: Procedure Note Donotuseinterpreter, Image - 08/10/2025 [place] [address] Ultrasound Report Signed Patient: Adeola Nguyen R#: [id number] : 1970Acct:[id number] Age/Sex: 54 / FADM Date: 08/10/25 Loc: .ED Attending Dr: Ordering Physician: Ailyn Bowen Date of Service: 08/10/25 Procedure(s): US renal BI Accession Number(s): [id number] cc: Mary Ellen Ortega MD; Ailyn Bowen [...] 08/10/25 1342 DD/ 1259 TD/TT: 08/10/25 1318 Associate Counsel: us External Provider IMG US PROCEDURES Final Result * CBC auto differential (08/10/2025 10:45 AM EDT) White Blood Count 10.7 4.8 - 10.8 X10*3/uL [facility] Red Blood Count 5.45 4.20 - 5.50 X10*6/uL [facility] Hemoglobin 15.1 12.0 - 16.0 g/dl [facility] Hematocrit 46.6 37.0 - 47.0 % [facility] Mean Corpuscular Volume 85.5 80.0 - 98.0 fL [facility] Mean Corpuscular Hemoglobin 27.7 27.0 - 33.0 pg [facility] Mean Corpuscular HGB Conc 32.4 31.0 - 35.0 g/dl [facility] Red Cell Distribution Width 12.4 11.0 - 16.0 % [facility] Platelet Count 340 160 - 400 X10*3/uL [facility] Mean Platelet Volume 9.5 9.4 - 12.3 fL [facility] Neutrophils Percent Auto 61.4 45 - 73 % [facility] Imm Gran Pct Auto 0.3 0.0 - 0.4 % [facility] Lymphocytes Percent Auto 28.8 20 - 40 % [facility] Monocytes Percent Auto 6.5 2 - 11 % [facility] Eosinophils Percent Auto 2.4 0 - 4 % [facility] Basophils Percent Auto 0.6 0 - 2 % [facility] NRBC Pct Auto 0.0 0.0 - 0.2 /100WBC [facility] Neutrophils Absolute Auto 6.6 2.0 - 8.3 x10*3/uL [facility] Imm Gran Abs Auto 0.03 0.00 - 0.03 X10*3/uL [facility] Lymphocytes Absolute Auto 3.1 1.2 - 4.9 X10*3/uL [facility] Monocytes Absolute Auto 0.7 0.1 - 1.2 X10*3/uL [facility] Eosinophils Absolute Auto 0.3 0.0 - 0.4 X10*3/uL [facility] Basophils Absolute Auto 0.1 0.0 - 0.2 X10*3/uL [facility] NRBC Abs Auto 0.000 0.0 - 0.012 X10*3/uL [facility] 08/10/2025 10:4 5 AM EDT 08/10/2025 10:48 AM EDT Generic External Data Provider LAB BLOOD ORDERAB LES Final Result Performing Organization Address City/[facility]/ZIP Co de Phone Number [facility] [address] [place] [phone] * Magnesium (08/10/2025 10:45 AM EDT) Magnesium 1.7 1.6 - 2.6 mg/dL [facility] 08/10/2025 10:4 5 AM EDT 08/10/2025 10:48 AM EDT Generic External Data Provider LAB BLOOD ORDERAB LES Final Result Performing Organization Address City/[facility]/ZIP Co de Phone Number [facility] [address] [place] [phone] * Lipase (08/10/2025 10:45 AM EDT) Lipase 21 8 - 78 U/L [facility] 08/10/2025 10:4 5 AM EDT 08/10/2025 10:48 AM EDT us Generic External Data Provider LAB BLOOD ORDERAB LES Final Result Performing Organization Address [facility] Co de Phone Number [facility] [address] [place] [phone] * Creatine Kinase, Total (08/10/2025 10:45 AM EDT) Creatine Kinase Total 52 26 - 140 U/L [facility] 08/10/2025 10:4 5 AM EDT 08/10/2025 10:48 AM EDT us Generic External Data Provider LAB BLOOD ORDERAB LES Final Result Performing Organization Address [facility] Phone Number [facility] [address] [place] [phone] * (ABNORMAL) Hepatic Function Panel (08/10/2025 10:45 AM EDT) Bilirubin, Total 0.8 0.0 - 1.0 mg/dL [facility] Bilirubin, Direct 0.3 0.0 - 0.5 mg/dL [facility] Aspartate Amino Transferase 29 5 - 31 U/L [facility] Alanine Aminotransferase 33(H) 0 - 31 U/L [facility] Total Protein 7.8 6.5 - 8.0 g/dL [facility] Albumin Level 4.8 3.5 - 5.0 g/dL [facility] Alkaline Phosphatase 141(H) 39 - 117 U/L [facility] 08/10/2025 10:4 5 AM EDT 08/10/2025 10:48 AM EDT us Generic External Data Provider LAB BLOOD ORDERAB LES Final Result Performing Organization Address [facility] Co de Phone Number [facility] [address] [place] [phone] * (ABNORMAL) Basic Metabolic Panel (08/10/2025 10:45 AM EDT) Sodium 142 135 - 145 mmol/L [facility] Potassium 3.1(L) 3.3 - 5.1 mmol/L [facility] Chloride 105 96 - 108 mmol/L [facility] Carbon Dioxide 25 22 - 29 mmol/L [facility] Anion Gap 15 12 - 20 [facility] Urea Nitrogen (BUN) 9 9 - 16 mg/dL [facility] Creatinine, Serum 0.74 0.5 - 1.4 mg/dL [facility] Creatinine Clr Calc Pharmacy 85.6 [facility] Comment:Provided height and weight: 172.72 cm,71.668 kg.eGFR (calculated from the MDRD study equation) and eCrCl(calculated from the Cockcroft-Gault equation) are based ondifferent parameters and may not yield comparable results.If eCrCl result is absurd, please check patient'sheight/weight. Estimated Glomerular Filt Rate >60 [facility] Comment:Chronic Kidney Disea se: Estimated GFR < 60 mL/min/1.14i8Psydnr Kidney Disease: Estimated GFR < 15 mL/min/1.73m2 Glucose 168(H) 60 - 115 mg/dL [facility] Calcium 9.6 8.4 - 10.2 mg/dL [facility] 08/10/2025 10:4 5 AM EDT 08/10/2025 10:48 AM EDT us Generic External Data Provider LAB BLOOD ORDERAB LES Final Result [facility] [address] [place] [phone] * CT Lumbar Spine w/o Contrast (08/03/2025 9:29 AM EDT) Anatomical Region Laterality Modality Spine, L-spine Computed Tomogra phy 08/03/2025 9:29 AM EDT Narrative 08/03/2025 10:04 AM EDT [address] [address] [address] Scan Report Signed Patient: Radha Nguyen#: [id number] : 1970 Acct:[id number] Age/Sex: 54 / F ADM Date: 08/03/25 Loc: [facility] Attending Dr: Mary Ellen Orellana MD Ordering Physician: Nhi Wisdom Date of Service: 08/03/25 Procedure(s): CT lumbar spine wo IV con Accession Number(s): [id number] cc: Nhi Wisdom; Mary Ellen Ortega MD Report Number: [id number]: Total DLP = 690.00 mGy-cm Reason for [...] atherosclerotic calcifications are present. There are 5 rrc-kfi-hmjbpji lumbar segments. T12-L1: There is no disc [...] 08/03/25 1001 DD/ 0929 TD/TT: 08/03/25 0942 Associate Counsel: Procedure Note Donotuseinterpreter, Image - 08/03/[address] [address] [address] Scan Report Signed Patient: Adeola Nguyen R#: [id number] : 1970Acct:[id number] Age/Sex: 54 / FADM Date: 08/03/25 Loc: [facility].CARD Attending Dr: Mary Ellen Orellana MD Ordering Physician: Nhi Wisdom Date of Service: 08/03/25 Procedure(s): CT lumbar spine wo IV con Accession Number(s): [id number] cc: Nhi Wisdom; Mary Ellen Ortega MD Report Number: [id number]: Total DLP = 690.00 mGy-cm Reason for [...] atherosclerotic calcifications are present. There are 5 hzf-mjy-sapgucl lumbar segments. T12-L1: There is no disc [...] OV> 08/03/25 1001 DD/ 8 TD/TT: 08/03/25941 Associate Counsel: [facility] External Provider IMG CT PROCEDURES Final Result * Albumin, Random Urine W/Creatinine (05/07/2024 3:30 PM EDT) Creatinine, Urine 298.37 mg/dL [facility] Microalbumin Urine 41.0 mg/L [facility] Microalbum Creatinine Ratio Ur 13.7 <30 ug/mg cr [facility] Comment:Albumin/Creatinine R atio Reference Ranges: Normal: < 30 ug/mg creatinine Microalbuminuria: 30 - 300 ug/mg creatinineClinical Albuminuria: > 300 ug/mg creatinine 05/07/2024 3:30 PM EDT 05/07/2024 6:15 PM EDT Mary Ellen Orellana MD LAB URINE ORDERAB LES Final Result [facility] [address] [place] [phone] * (ABNORMAL) Lipid Panel, Standard (05/04/2024 9:51 AM EDT) Triglycerides 230(H) <150 mg/dL [facility] Comment:Desirable Triglyceri de: less than 150 mg/dLBorderline High Triglyceride 150-199 mg/dLHigh Triglyceride: 200-499 mg/dLVery High Triglyceride: greater than or equal to 5OO mg/dL Cholesterol 142 <200 mg/dL [facility] Comment:Desirable Cholestero l: less than 200 mg/dLBorderline High Cholesterol: 200-239 mg/dLHigh Cholesterol: greater than 239 mg/dL LDL Cholesterol Calculated 60 <100 mg/dL [facility] Comment:Desirable LDL: less than 100 mg/dLNear Optimal/Above Optimal LDL: 110- 129 mg/dLBorderline High LDL: 130-159 mg/dLHigh LDL: 160-189 mg/dLVery High LDL: greater than or equal to 190 mg/dL HDL Cholesterol 36(L) >40 mg/dL [facility] Comment:Desirable HDL: great er than 40 mg/dL Note: This HDL assay may give artificially low results in patients with liver disease. Blood Venous blood specimen / Unknown 05/04/2024 9:51 AM EDT 05/04/2024 12:13 PM EDT Mary Ellen Orellana MD LAB BLOOD ORDERAB LES Final Result [facility] [address] [place] [phone] * HPV mRNA E6/E7 w/Reflex to HPV Genotypes 16, 18/45 (04/07/2024 9:47 AM EDT) HPV nRNA E6/E7 Not Detected Not Detected [facility] Comment:Methodology: Transcr iption-Mediated AmplificationThis assay detects E6/E7 viral messenger RNA (mRNA) from 14high-risk HPV types (16,18,31,33,35,39,45,51,52,56,58,59,66,68).Cervical sources are required for HPV testing.If a vaginal source from a patient who has had atotal hysterectomy with removal of cervix wassubmitted, please contact the testing laboratoryfor alternative testing options.For additional information, please refer tohttp://education.WappZapp/faq/GSJ078g0(This link if provided for information/educational purposes only.)THIS TEST WAS PERFORMED AT:[employer] [place] [phone] BAE MD HPV mRNA E6/E7 TNP [facility] HPV 16 RNA TNP [facility] HPV 18/45 RNA TNP [facility] 04/07/2024 9:47 AM EDT 04/08/2024 10:30 AM EDT us Mary Ellen Orellana MD LAB CYTOLOGY [place]OMA [place]LOYD Final Result [facility] [address] [place] [phone] * Pap Smear (04/07/2024 9:47 AM EDT) Swab Cervix uteri structure / Unknown 04/07/2024 9:47 AM EDT 04/08/2024 10:30 AM EDT Narrative [facility] - 04/29/2024 9:28 PM EDT ----- ------- Name: Radha Nguyen Age/Sex: 53/F : 1970 Unit#: [id number] Attend Dr: Mary Ellen Ortega MD Re04/07/24 Status: DEP REF Location: HO.HHCLNP Disch: ----- ------- SPEC : [id number] RECD: 04/08/24 STATUS: [facility] NUM: [id number] ANAID: 04/07/[address] [facility] [address]: CARLTON ALEGRIA [facility] ENTERED: 04/08/241402 SP TYPE: Pap Smr AVEL DR: ORDERED: [...] 59, 66, 68) HPV testing performed by [facility], [place], [place]. See reference laboratory portion of the EMR [...] ----- ------- END OF REPORT Carlton Olman [facility] LAB CYTOLOGY ORDERABLES F inal Result [facility] [address] [place] [phone] * Hepatitis C Antibody with Reflex to HCV, RNA, Quantitative, Real-Time PCR (03/08/2023 9:31 AM EDT) Hepatitis C Antibody NON-REACT SVETLANA NON-REACT SVETLANA [facility] [place] Index 0.07 <1.00 [facility] [place] Comment: HCV antibody was non-reactive. There is no laboratory evidence of HCV infection. In most cases, no further action is required. However, if recent HCV exposure is suspected, a test for HCV RNA (test code 29554) is suggested. For additional information please refer to http://education.WappZapp/faq/SLZ69t8 (This link is being provided for informational/ educational purposes only.) Blood Venous blood specimen / Unknown 03/08/2023 9:31 AM EDT 03/08/2023 9:32 AM EDT Narrative [facility] - 03/08/2023 8:49 PM EDT FASTING:YES FASTING: YES Michelle Gould MD LAB BLOOD ORDERABLES Final Result Performing Organization Address City/[facility]/ZIP Co de Phone Number [facility] [address], [place] [phone] [facility] [place] [employer] [address] [place] [phone] * HIV-1/2 Antigen and Antibodies, Fourth Generation, with Reflexes (03/08/2023 9:31 AM EDT) Pathologist [facility] HIV Antigen/Antibody, 4th Generation NON-REAC TIVE NON-REAC TIVE [facility] [place] Comment: HIV-1 antigen and HIV-1/HIV-2 antibodies were [...] purpose. For additional information please refer to http://education.SeeMe.Wisair/faq/OKB634 (This link is being provided for informational/ educational purposes only.) The performance of this assay has not been clinically validated in patients less than 2 years old. Blood Venous blood specimen / Unknown 03/08/2023 9:31 AM EDT 03/08/2023 9:32 AM EDT Narrative [facility] - 03/08/2023 8:49 PM EDT FASTING:YES FASTING: YES Michelle Gould MD LAB BLOOD ORDERABLES Final Result [facility] [address], [place] [phone] [facility] [address] [place] [phone] from Last 3 Months or Most Recently Relevant to Health Maintenance Additional Health Concerns Active Problems Noted Date [...] 10/29/2025 Patient has chronic kidney disease 10/29/2025 Insurance [facility] [address] [place] [address] [facility] MEDICAID STAND ADULT * Guarantor: Radha Nguyen Account Type Relation to Patient Date of Phone Billing Address Personal/Family Self [address] BAS[place] Duran Care Teams Commodity Lead Relationship Specialty Start Date End Date Mary Ellen Ortega MD [address] [facility] [place] [address] PCP - General Internal Medicine 03/15/23 Mally Guzman, Vicki [address] [place] [address] Pharmacist Pharmacy 08/27/25
--- OUTSIDE RECORDS SUMMARY | 2025-10-30 07:56 | XMS_ITS | Encounter Summary ---
Author Organization [employer] Address [address] [place] [address] [address] [place] [address] Care Team Providers Care Gravel Inspector Name Role Phone Mary Ellen Ortega MD Primary Care Pro vider Sommer Martinez PharmD Unavailable [phone] Mally Guzman PharmD Unavailable [phone] Reason for Visit * Reason Onset Date Comments Referral 04/01/2023 Encounter Details Date Type Department Care Team (Late st Contact Info) Description 04/01/2023 Telephone [facility] MEDICINE [address] [place], [place] [phone] Mary Ellen Ortega MD [address] [place], [place] [phone] Referral Social History Tobacco Use Types Packs/Day [...] 11:19 AM EDT Pt was seen by [facility] on 03/15/23 and appears to have an upcoming appt with N on 04/05/23. Unsure if ptstill has pending appt. Will send message to [facility] to outreach pt regarding request. * Telephone Encounter - Sawyer Quiñonez - 04/01/2023 10:16 AM EDT Tc from pt requesting status on referral for a psychiatrist. Please contact pt at [phone] documented in this encounter Plan of Treatment Upcoming Encounters Date Type Department Care Team (Late st Contact Info) Description 11/03/2025 10:00 AM EST Medication Management [facility] MEDICINE [address] [place] [address] Mally Guzman, PharmD [address] [place] [address] 12/16/2025 9:00 AM EST Office Visit [facility] MEDICINE [address] [place] [address] Mary Ellen Ortega MD [address] [place] [address] 03/16/2026 9:00 AM EDT Office Visit [facility] OPTOMETRY [address] [place] [phone] Rebeca Johnson, OD [address] [place] [address] documented as of this encounter Visit Diagnoses Not on filedocumented in this encounter Additional Health Concerns Assessment Noted Time PHQ-9 Depression Total Score: 18 023 1:27 PM EDT documented as of this encounter Care Teams Gravel Inspector Relationship Specialty Start Date End Date Mary Ellen Ortega MD [address] [place] [phone] PCP - General Internal Medicine 03/15/23 Sommer Martinez, ElizabethD [address] [place] [phone] Pharmacist Internal Medicine 09/30/24 08/25/25 Mally Guzman, ElizabethD [address] [place] [phone] Pharmacist Pharmacy 08/27/25 documented as of this encounter
--- OUTSIDE RECORDS SUMMARY | 2025-10-30 07:56 | XMS_ITS | Encounter Summary ---
Author Organization [employer] Address [address] [place] [address] [address] [place] [address] Care Team Providers Care Catering Truck Operator Name Role Phone Mary Ellen Ortega MD Primary Care Pro vider Sommer Martinez PharmD Unavailable [phone] Mally Guzman PharmD Unavailable [phone] Reason for Visit * Reason Onset Date Comments Medication Question 05/07/2023 Encounter Details Date Type Department Care Team (Late st Contact Info) Description 05/07/2023 Telephone [facility] MEDICINE [address] [place], [place] [phone] Mary Ellen Ortega MD 230 [place], [place] [phone] Medication Question Social History Tobacco Use Types [...] Upcoming Encounters Date Type Department Care Team ([facility] st Contact Info) Description 11/03/2025 10:00 AM EST Medication Management [facility] MEDICINE [address] [place] [address] Mally Guzman, PharmD 230 [place] [address] 12/16/2025 9:00 AM EST Office Visit [facility] MEDICINE [address] [place] [address] Mary Ellen Ortega MD 230 [place] [address] 03/16/2026 9:00 AM EDT Office Visit [facility] OPTOMETRY [address] [place] [address] Alex, Rebeca, OD 230 [place] [address] documented as of this encounter Visit Diagnoses Not on filedocumented in this encounter Additional Health Concerns Assessment Noted Time PHQ-9 Depression Total Score: 18 023 1:27 PM EDT documented as of this encounter Care Teams Catering Truck Operator Relationship Specialty Start Date End Date Mary Ellen Ortega MD [address] [place] [address] PCP - General Internal Medicine 03/15/23 Sommer Martinez, PharmD [address] [place] [phone] Pharmacist Internal Medicine 09/30/24 08/25/25 Mally Guzman, ElizabethD [address] [place] [phone] Pharmacist Pharmacy 08/27/25 documented as of this encounter
--- OUTSIDE RECORDS SUMMARY | 2025-10-30 07:56 | XMS_ITS | Patient Health Record ---
Author Organization [employer] Address [address] [place] [address] [place] [phone] Support Name Relationship Address Phone Radha Lux Guarantor Unknown Reason For Referral No Information Plan Of Treatment No Information Insurance Providers Payer Name Payer Address Payer Phone Subscriber Number Group Number Insured Name Patient Relationship to Insured Coverage Start Date Coverage End Date [facility] [address] [place] [id number] Radha Lux Self - patient is the insured
--- OUTSIDE RECORDS SUMMARY | 2025-10-30 07:56 | XMS_ITS | Encounter Summary ---
Author Organization [employer] Address [address] [facility] 7t [place] [address] Care Team Providers Care General Magistrate Name Role Phone Mary Ellen Ortega MD Primary Care Pro vider Sommer Martinez PharmD Unavailable [phone] Mally Guzman PharmD Unavailable [phone] Reason for Visit * Reason Comments Med Refill Encounter Details Date Type Department Care Team (Late st Contact Info) Description 10/01/2024 Refill [facility] MEDICINE [address] [place], [place] [phone] Mary Ellen Ortega MD 230 [place] [address] Social History Tobacco Use Types Packs/Day Years [...] 10:00 AM EST Medication Management [facility] MEDICINE [address] [place] [address] Mally Guzman, PharmD 230 [place] [address] 12/16/2025 9:00 AM EST Office Visit [facility] MEDICINE [address] [place] [address] Mary Ellen Ortega MD 230 [place] [address] 03/16/2026 9:00 AM EDT Office Visit [facility] OPTOMETRY [address] [place] [phone] Wilfrido Johnsonn, OD 230 [place] [address] documented as of this encounter Visit Diagnoses Not on filedocumented in this encounter Additional Health Concerns Assessment Noted Time PHQ-9 Depression Total Score: 12 024 2:32 PM EDT documented as of this encounter Care Teams General Magistrate Relationship Specialty Start Date End Date Mary Ellen Ortega MD 230 [place] [address] PCP - General Internal Medicine 03/15/23 Sommer Martinez, ElizabethD [address] [place] [phone] Pharmacist Internal Medicine 09/30/24 08/25/25 Mally Guzman, ElizabethD [address] [place] [address] Pharmacist Pharmacy 08/27/25 documented as of this encounter
--- OUTSIDE RECORDS SUMMARY | 2025-10-30 07:56 | XMS_ITS | Encounter Summary ---
Author Organization [employer] Address [address] [facility] 7[address] [place] [address] Care Team Providers Care Concession Supervisor Name Role Phone Mary Ellen Ortega MD Primary Care Pro vider Sommer Martinze PharmD Unavailable [phone] Mally Guzman PharmD Unavailable [phone] Reason for Visit * Reason Onset Date Comments Appointment Request 03/24/2025 Encounter Details Date Type Department Care Team (Late st Contact Info) Description 03/24/[address] [facility] MEDICINE [address] [place], [place] [phone] Mary Ellen Ortega MD [address] [place], [place] [phone] Appointment Request Social History Tobacco Use Types [...] Description 11/03/2025 10:00 AM EST Medication Management [facility] MEDICINE [address] [place] [phone] Mally Guzman, PharmD 230 [place] [address] 12/16/2025 9:00 AM EST Office Visit [facility] MEDICINE 230 [place], [place] [phone] Mary Ellen Ortega MD 230 [place] [address] 03/16/2026 9:00 AM EDT Office Visit [facility] OPTOMETRY [address] [place] [address] Alex, Rebeca, OD [address] [place] [address] documented as of this encounter Visit Diagnoses Not on filedocumented in this encounter Additional Health Concerns Assessment Noted Time PHQ-9 Depression Total Score: 12 024 2:32 PM EDT documented as of this encounter Care Teams Concession Supervisor Relationship Specialty Start Date End Date Mary Ellen Ortega MD 230 [place] [address] PCP - General Internal Medicine 03/15/23 Sommer Martinez, PharmD [address] [place] [phone] Pharmacist Internal Medicine 09/30/24 08/25/25 Mally Guzman, PharmD [address] [place] [phone] Pharmacist Pharmacy 08/27/25 documented as of this encounter
--- OUTSIDE RECORDS SUMMARY | 2025-10-30 07:56 | XMS_ITS | Encounter Summary ---
Author Organization [employer] Address [address] [facility] 7t [place] [address] Care Team Providers Care Cashier Assistant Name Role Phone Mary Ellen Ortega MD Primary Care Pro vider Sommer Martinez PharmD Unavailable [phone] Mally Guzman PharmD Unavailable [phone] Encounter Details Date Type Department Care Team (Late st Contact Info) Description 08/19/2024 Orders Only [facility] MEDICINE 230 [place] [address] Georgette Ramsey MD 230 [place], [place] [phone] Social History Tobacco Use Types Packs/Day Years [...] with others, in a hotel, in a residential, living outside on the street, on a [...] Description 11/03/2025 10:00 AM EST Medication Management [facility] MEDICINE [address] [place] [phone] Mally Guzman, PharmD 230 [place] [address] 12/16/2025 9:00 AM EST Office Visit [facility] MEDICINE [address] [place] [address] Mary Ellen Ortega MD 230 [place] [address] 03/16/2026 9:00 AM EDT Office Visit [facility] OPTOMETRY [address] [place] [address] Rebeca Johnson, OD [address] [place] [address] documented as of this encounter Procedures Procedure Name Priority Date/Time Associated Diagnosis Comments BI MAMMOGRAM DIAGNOSTIC TOMOSYNTHESIS BILATERAL Routine 09/14/2024 11:00 AM EST documented in this encounter Results * BI Mammogram Diagnostic Tomosynthesis Bilateral (09/14/2024 11:00 AM EST) Anatomical Region Laterality Modality Breast Bilateral Mammography 09/14/2024 11:0 0 AM EST Narrative 09/14/2024 12:16 PM EST [facility] [address] [place] [address] Mammography Report Signed Patient: Radha Nguyen#: [id number] : 1970 Acct:[id number] Age/Sex: 54 / F ADM Date: 09/14/24 Loc: HO.MAMMO Attending Dr: Mary Ellen Orellana MD Ordering Physician: Mary Ellen Ortega MD Re sults: 2Benign Findings Date of Service: 09/14/24 Follow Up: 1 Year From Orig inal Mammogram Procedure(s): MM tomosynthesis diagnostic BI Accession Number(s): [id number] cc: Mary Ellen Ortega MD EXAMINATION: MM [...] by: Andreas Wall MD 09/14/2024 12:13 PM [facility] Dictated By: Andreas Wall MD Signed By: <Electronically signed by Andreas Wall MD in OV> 09/14/24 1213 DD/ 1100 TD/TT: 09/14/24 1137 Environmental Services Worker: Procedure Note Donotuseinterpreter, Image - 09/14/2024 [facility] [address] [place], [place] [address] Mammography Report Signed Patient: Adeola Nguyen R#: [id number] : 1970Acct:[id number] Age/Sex: 54 / FADM Date: 09/14/24 Loc: HO.MAMMO Attending Dr: Mary Ellen Orellana MD Ordering Physician: Mary Ellen Ortega sults: 2Benign Findings Date of Service: 09/14/24Follow Up: 1 Year From Orig inal Mammogram Procedure(s): MM tomosynthesis diagnostic BI Accession Number(s): [id number] cc: Mary Ellen Ortega MD EXAMINATION: MM [...] by: Andreas Wall MD 09/14/2024 12:13 PM [facility] Dictated By: Andreas Wall MD Signed By: <Electronically signed by Andreas Wall MD in OV> 09/14/24 1213 DD/ 1100 TD/TT: 09/14/24 1137 Environmental Services Worker: us Mary Ellen Orellana MD IMG BI PROCEDURES Edited Result - Final documented in this encounter Visit Diagnoses Not on filedocumented in this encounter Additional Health Concerns Assessment Noted Time PHQ-9 Depression Total Score: 024 2:32 PM EDT documented as of this encounter Care Teams Cashier Assistant Relationship Specialty Start Date End Date Mary Ellen Ortega MD [address] [place] [address] PCP - General Internal Medicine 03/15/23 Sommer Martinez, ElizabethD [address] [place] [phone] Pharmacist Internal Medicine 09/30/24 08/25/25 Mally Guzman, Vicki [address] [place] [phone] Pharmacist Pharmacy 08/27/25 documented as of this encounter
--- OUTSIDE RECORDS SUMMARY | 2025-10-30 07:56 | XMS_ITS | Encounter Summary ---
Author Organization [employer] Address [address] [facility] 7t [place] [address] Care Team Providers Care Assistant Office Manager Name Role Phone Mary Ellen Ortega MD Primary Care Pro vider Sommer Martinez PharmD Unavailable [phone] Mally Guzman PharmD Unavailable [phone] Reason for Visit * Reason Comments Med Refill Encounter Details Date Type Department Care Team (Late st Contact Info) Description 07/26/2025 Refill [facility] MEDICINE 230 [place], [place] [phone] Mary Ellen Ortega MD 230 [place], [place] [phone] Social History Tobacco Use Types Packs/Day Years [...] Upcoming Encounters Date Type Department Care Team ([facility] st Contact Info) Description 11/03/2025 10:00 AM EST Medication Management [facility] MEDICINE [address] [place] [phone] Mally Guzman, PharmD 230 [place] [address] 12/16/2025 9:00 AM EST Office Visit [facility] MEDICINE [address] [place] [address] Mary Ellen Ortega MD 230 [place] [address] 03/16/2026 9:00 AM EDT Office Visit [facility] OPTOMETRY [address] [place] [address] Rebeca Johnson, [place] 230 [place] [address] documented as of this encounter Visit Diagnoses Not on filedocumented in this encounter Additional Health Concerns Assessment Noted Time PHQ-9 Depression Total Score: 11 05/13/ 025 10:50 AM EDT documented as of this encounter Care Teams Assistant Office Manager Relationship Specialty Start Date End Date Mary Ellen Ortega MD 230 [place] [address] PCP - General Internal Medicine 03/15/23 Sommer Martinez, ElizabethD 230 [place] [address] Pharmacist Internal Medicine 09/30/24 08/25/25 Mally Guzman, ElizabethD 230 [place] [address] Pharmacist Pharmacy 08/27/25 documented as of this encounter
--- OUTSIDE RECORDS SUMMARY | 2025-10-30 07:56 | XMS_ITS | Encounter Summary ---
Author Organization [employer] Address [address] [facility] 7t [place] [address] Care Team Providers Care Gmat Tutor Name Role Phone Mary Ellen Ortega MD Primary Care Pro vider Sommer Martinez PharmD Unavailable [phone] Mally Guzman PharmD Unavailable [phone] Reason for Visit * Reason Comments Med Refill Encounter Details Date Type Department Care Team (Late st Contact Info) Description 02/11/2025 Refill [facility] MEDICINE 230 [place] [address] Mary Ellen Ortega MD 230 [place], [place] [phone] Tenderness over maxillary sinus Social History Tobacco [...] with others, in a hotel, in a chcf, living outside on the street, on a [...] Upcoming Encounters Date Type Department Care Team ([facility] st Contact Info) Description 11/03/2025 10:00 AM EST Medication Management [facility] MEDICINE [address] [place] [address] Mally Guzman, PharmD 230 [place] [address] 12/16/2025 9:00 AM EST Office Visit [facility] MEDICINE 230 [place] [address] Mary Ellen Ortega MD 230 [place] [address] 03/16/2026 9:00 AM EDT Office Visit [facility] OPTOMETRY [address] [place] [address] Alex, Rebeca, OD 230 [place] [address] documented as of this encounter Visit Diagnoses Diagnosis Tenderness over maxillary sinus documented in this encounter Additional Health Concerns Assessment Noted Time PHQ-9 Depression Total Score: 12 024 2:32 PM EDT documented as of this encounter Care Teams Gmat Tutor Relationship Specialty Start Date End Date Mary Ellen Ortega MD [address] [place] [address] PCP - General Internal Medicine 03/15/23 Sommer Martinez, ElizabethD [address] [place] [address] Pharmacist Internal Medicine 09/30/24 08/25/25 Mally Guzman, ElizabethD [address] [place] [address] Pharmacist Pharmacy 08/27/25 documented as of this encounter
== END 2025-10-30 07:54 | disposition home or self-care (01) ==
LOC: HO.CT 07:53
PROVIDERS: PCP Student in an Organized Health Care Education/Training Program; Visit Provider Student in an Organized Health Care Education/Training Program
DX: R91.1 Solitary pulmonary nodule (principal)
CPT/HCPCS: 71250

== ENCOUNTER → 2025-10-30 07:55 | Outpatient (BNV) | payer MEDICAID, SELFPAY | PROVIDERS: PCP Student in an Organized Health Care Education/Training Program; Visit Provider Radiology Diagnostic Radiology | DX: R91.8 Other nonspecific abnormal finding of lung field (principal) | CPT/HCPCS: 71250 ==